=== PATIENT | male | born 1960 | race Caucasian/White ===

== ENCOUNTER 2021-02-12 14:31 | Inpatient (IN) | payer MEDICAID, SELFPAY ==
[2021-02-12] VITALS (8 sets, daily range): BP systolic 78–156; BP diastolic 50–100; PULSE 63–106; RESP 16–28; TEMP 36.6–38.2; O2SAT 88–99; BMI 38.7
--- NOTE | ~2021-02-12 | CT_ITS ---
EXAMINATION: CT CHEST WITHOUT CONTRAST CLINICAL INFORMATION: Shortness of breath with cough and lower extremity edema COMPARISON: Chest radiograph earlier today TECHNIQUE: Multidetector volumetric CT imaging of the chest was done. Axial MIP volume rendering provided. Sagittal and coronal reformatted images were obtained. This CT examination was performed using dose optimization techniques as appropriate, variously including the following: *Automated exposure control *Adjustment of mA and/or kV according to patient size (this includes techniques or standardized protocols for targeted exams where dose is matched to indication/reason for exam; i.e. extremities or head) *Use of iterative reconstruction technique DLP: 540 mGy-cm FINDINGS: LUNGS: Mild groundglass changes are present just in front of the major fissures in both upper lobes. There is a 8mm rounded density seen along the pleural surface laterally in the left upper lobe (5:131) MEDIASTINUM: Small mediastinal lymph nodes are present along with a few small anterior preparacardiac lymph nodes and posterior paraesophageal lymph nodes. No mediastinal or hilar lymphadenopathy. PLEURA: There is no pleural effusion. No pleural mass or thickening. AXILLA: No lymphadenopathy. UPPER ABDOMEN: A small hiatal hernia is present. Partial visualization of a 3.4 cm right renal cyst. OSSEOUS STRUCTURES: Unremarkable. Degenerative changes present in the spine CT/CT chest wo con IMPRESSION: No acute intrathoracic disease. 8 mm lung nodule in the area of groundglass change. According to the UPDATED 2017 Fleischner Society recommendations, the advised follow-up imaging for a single 6-8 mm solid nodule is: LOW RISK PATIENT: CT at 6-12 months, then consider CT at 18-24 months. HIGH RISK PATIENT: CT at 6-12 months, then at 18-24 months.
--- NOTE | ~2021-02-12 | XR_ITS ---
EXAMINATION: XR CHEST CLINICAL INFORMATION: SOB/cough and lower extremity. COMPARISON: None TECHNIQUE: Frontal view of the chest was obtained. FINDINGS: No significant abnormality is noted involving the heart, lungs, mediastinum, bony thorax or soft tissues. XR/XR chest 1V IMPRESSION: Unremarkable chest exam.
--- NOTE | ~2021-02-12 | XR_ITS ---
EXAMINATION: XR CHEST CLINICAL INFORMATION: Diverticulitis with microperforation. Evaluate for free air. COMPARISON: Previous chest x-ray from yesterday TECHNIQUE: Frontal view of the chest was obtained. FINDINGS: The cardiac and mediastinal contours are stable. The lung volumes are low. There is crowding of the central bronchovascular markings similar to yesterday's exam. The lungs are otherwise clear. There is no pleural effusion or pneumothorax. No free air is seen. XR/XR chest 1V IMPRESSION: No free air seen.
--- NOTE | ~2021-02-12 | CT_ITS ---
EXAMINATION: CT ABDOMEN AND PELVIS WITHOUT CONTRAST CLINICAL INFORMATION: Abdominal pain COMPARISON: CT scan abdomen pelvis 02/13/2020. Ultrasound of abdomen 09/09/2019 TECHNIQUE: Multidetector volumetric imaging was performed from the superior aspect of the liver through the pubic symphysis. Sagittal and coronal reformatted images were obtained on the technologist's workstation. This CT examination was performed using dose optimization techniques as appropriate, variously including the following: *Automated exposure control *Adjustment of mA and/or kV according to patient size (this includes techniques or standardized protocols for targeted exams where dose is matched to indication/reason for exam; i.e. extremities or head) *Use of iterative reconstruction technique DLP: 1160 mGy-cm FINDINGS: LUNG BASES: The visualized lung bases are unremarkable. LIVER, GALLBLADDER, AND BILIARY TREE: The liver is normal in size, shape, and attenuation. No focal hepatic lesion or biliary ductal dilatation is present. The gallbladder is unremarkable with no evidence of radiopaque gallstones, gallbladder wall thickening, or obvious pericholecystic inflammatory changes. PANCREAS: Unremarkable. SPLEEN: Unremarkable. ADRENAL GLANDS: Unremarkable. KIDNEYS AND URETERS: Nonobstructive 1 mm stone lower pole of the right kidney. No stone in the left kidney. There are no ureteral stones. There is no hydronephrosis.There is a stable cyst posterior upper pole right kidney measuring 3 cm and a stable 8 mm cyst at the lower pole left kidney. No follow-up imaging is recommended for simple renal cyst. BLADDER: Unremarkable. GASTROINTESTINAL TRACT: There is small area of focal edema the junction of the descending and sigmoid colon bowel wall thickening and edema in the pericolonic fat. There is a small collection of extraluminal gas in the mesentery in this area. There are a few diverticula in this region of the colon. Findings consistent with a diverticulitis with localized perforation. No abscess however. No bowel obstruction. Small volume of stool in the colon. The sigmoid colon is redundant looping well to the right side of the abdomen but there is no mesenteric twist. The appendix is normal. The small bowel loops are unremarkable. Is a small hiatal hernia. ABDOMINAL WALL: No significant hernia is appreciated. LYMPH NODES: Normal. VASCULAR: Small volume of scattered vascular wall calcifications of the abdominal aorta. There is no aneurysm. PELVIC VISCERA: Prostate measures 5 cm transverse. OSSEOUS STRUCTURES: Multilevel degenerative spondylosis of the spine. CT/CT abdomen pelvis wo con IMPRESSION: Focal diverticulitis of the distal descending/proximal sigmoid colon. There is microperforation with small collection of gas in the pericolonic fat but no abscess. This critical result was discussed with Dr. Palma on 02/12/2021, 10:20 PM and it was ascertained that the content and urgency of the report was understood at the time of direct communication.
--- NOTE | ~2021-02-12 | US_ITS ---
EXAMINATION: US VENOUS ULTRASOUND WITH DOPPLER LOWER EXTREMITY, BILATERAL CLINICAL INFORMATION: Bilateral pitting edema COMPARISON: None TECHNIQUE: Ultrasound of the deep veins is performed from the hip to the calf with compression sonography and color and pulse Doppler assessment. Spectral analysis with color-flow imaging is performed. FINDINGS: Difficult exam as patient could not tolerate compressions and diffuse compressions after proximal right femoral vein evaluation. RIGHT: There is normal respiratory variation flow visualized in common femoral vein, superficial femoral vein, profunda femoral vein, popliteal vein, and the trifurcation region shows no evidence of deep venous thrombosis. No compression or augmentation technique utilized There is no significant popliteal fossa cyst. There is mild calf edema. The peroneal vein is not visualized. LEFT: There is normal respiratory variation visualized in common femoral vein, superficial femoral vein, profunda femoral vein, popliteal vein, and the trifurcation region shows no evidence of deep venous thrombosis. No compression or augmentation technique utilized. There is no significant popliteal fossa cyst. The peroneal vein is not visualized. There is calf edema. If the patient's symptoms persist, followup ultrasound in 5 days 7 days might be of value to exclude proximal propagation from a non-visualized calf vein. US/US venous duplex LE BI IMPRESSION: There is surgery variation on color and spectral flow seen in the lower extremities normal color flow and spectral Doppler evaluation in both lower extremities. However no compression or augmentation technique was utilized hence DVT cannot be excluded. There is bilateral calf edema.
--- NOTE | 2021-02-12 15:31 | ECG_ITS ---
Test Reason : WEAKNESS Blood Pressure : / mmHG Vent. Rate : 065 BPM Atrial Rate : 065 BPM P-R Int : 144 ms QRS Dur : 100 ms QT Int : 428 ms P-R-T Axes : 039 042 064 degrees QTc Int : 445 ms Normal sinus rhythm Normal ECG When compared with ECG of 14-FEB-2020 01:04, Premature atrial complexes are no longer Present Right bundle branch block is no longer Present Referred By: Keshia Camara Electronically Signed By:AMANDA SHARMA
[2021-02-12 16:11] LABS: MANUAL DIFF FLAG NO
[2021-02-12 16:16] LABS: Basophils Percent Auto 0.2 % (0-2); Eosinophils Percent Auto 0.2 % (0-4); Hemoglobin 9.8 g/dl (14.0-18.0); Imm Gran Abs Auto 0.36 X10*3/uL (0.00-0.03); Imm Gran Pct Auto 3.4 % (0.0-0.4); Lymphocytes Absolute Auto 0.5 X10*3/uL (1.2-4.9); Lymphocytes Percent Auto 4.9 % (20-40); Mean Corpuscular HGB Conc 31.6 g/dl (31.0-36.0); Mean Corpuscular Hemoglobin 26.3 pg (27.0-33.0); Mean Corpuscular Volume 83.1 fL (80-98); Mean Platelet Volume 10.5 fL (9.4-12.4); Monocytes Absolute Auto 0.4 X10*3/uL (0.1-1.2); Monocytes Percent Auto 3.7 % (2-11); Neutrophils Absolute Auto 9.4 X10*3/uL (2.0-8.3); Neutrophils Percent Auto 87.6 % (45-73); Platelet Count 193 X10*3/uL (160-400); Red Blood Count 3.73 X10*6/uL (4.60-5.80); Red Cell Distribution Width 13.6 % (11.0-16.0); White Blood Count 10.7 X10*3/uL (4.8-10.8)
[2021-02-12 16:18] LABS: INTERNATIONAL NORM RATIO 1.2 (0.9-1.1); Prothrombin Time 14.2 SEC (10.8-13.0)
[2021-02-12 16:28] LABS: Glucose Urine UA NEG (NEG); Leukocyte Esterase Urine NEG (NEG); Nitrite Urine NEG (NEG); PH 5.5 (5.0-8.0); Specific Gravity - Urine 1.025 (1.005-1.025); Urine Blood NEG (NEG); Urine Ketones NEG (NEG); Urine Protein 1+ MG/DL (NEG-TRACE)
--- NOTE | 2021-02-12 16:28 | ED_ITS ---
HPI - General Adult General Chief complaint: Weakness Stated complaint: SOB,? COVID Time Seen by Provider: 02/12/21 15:07 Source: patient Mode of arrival: ambulatory Limitations: language barrier (Uzbek-speaking) History of Present Illness HPI narrative: 60-year-old male with a past medical history of coronary artery disease currently on Plavix, congestive heart failure, grade 2 diastolic dysfunction with an ejection fraction of 55-60% obtained September 2019, hypertension, hyperlipidemia, diabetes, obesity, asthma, obstructive sleep apnea who is a daily smoker presenting to the ED with complaints of 1 day of intermittent headaches, body aches, malaise, fatigue, nausea/vomiting, dry cough, shortness of breath, orthopnea and dyspnea on exertion. Reports that he was not vaccinated with COVID vaccine. Denies recent travel or sick contacts. Denies any measured fevers, dizziness, changes in vision, neck pain/stiffness, chest pain, palpitations, abdominal pain, back pain, dysuria, hematuria, calf tenderness or any other symptoms complaints or concerns at this time. Related Data Home Medications Medication Instructions Recorded Confirmed albuterol sulfate [ProAir HFA] 2 puff INHALATION Q4H PRN 02/12/21 02/12/21 amlodipine 10 mg PO QPM 02/12/21 02/12/21 buprenorphine-naloxone [Suboxone] 2 strip SUBLINGUAL DAILY 02/12/21 02/12/21 bupropion HCl 150 mg PO BID 02/12/21 02/12/21 calcium carbonate-vitamin D3 1 tab PO BID 02/12/21 02/12/21 [Oyster Shell Calcium-Vit D3] carvedilol 25 mg PO BID 02/12/21 02/12/21 cholecalciferol (vitamin D3) 1,000 unit PO DAILY 02/12/21 02/12/21 clopidogrel 75 mg PO DAILY 02/12/21 02/12/21 fluticasone propion-salmeterol 1 puff INHALATION BID 02/12/21 02/12/21 [Advair Diskus] fluticasone propionate 2 spray INTRANASAL DAILY 02/12/21 02/12/21 furosemide 40 mg PO DAILY 02/12/21 02/12/21 hydralazine 100 tab PO TID 02/12/21 02/12/21 isosorbide mononitrate 60 mg PO DAILY 02/12/21 02/12/21 losartan 100 mg PO DAILY 02/12/21 02/12/21 metformin 500 mg PO BID 02/12/21 02/12/21 nicotine (polacrilex) 1 ea PO Q2H PRN 02/12/21 02/12/21 omeprazole 20 mg PO DAILY 02/12/21 02/12/21 rosuvastatin 40 mg PO BEDTIME 02/12/21 02/12/21 spironolactone 25 mg PO BID 02/12/21 02/12/21 tiotropium bromide [Spiriva with 1 cap INHALATION DAILY 02/12/21 02/12/21 HandiHaler] Allergies Allergy/AdvReac Type Severity Reaction Status Date / Time crab [CRAB] Allergy Unknown ANAPHYLAXIS Unverified 05/18/20 15:00 lisinopril [LISINOPRIL] Allergy Unknown cough Unverified 05/18/20 15:00 Penicillins [PCN] Allergy Unknown RASH Unverified 05/18/20 15:00 Sulfa (Sulfonamide Allergy Unknown RASH Unverified 05/18/20 15:00 Antibiotics) [SULFA (SULFONAMIDE ANTIBIOTICS)] Review of Systems Review of Systems: Constitutional : Positive chills/fatigue/malaise, No Weight loss, No Chills, No Night Sweats ENT/Mouth : No Hearing loss, No Ear Pain, No Nasal Congestion, No Sinus Pain, No Hoarseness, No sore throat, No Rhinorrhea, No Swallowing Difficulty Eyes: No Eye Pain, No Swelling, No Redness, No Foreign Body, No Discharge, No Vision Changes Cardiovascular : Positive shortness of breath/dyspnea on exertion/orthopnea/lower extremity edema, No Chest Pain, No Palpitations Respiratory : Positive dry Cough, No Sputum, No Wheezing Gastrointestinal : Positive nausea/vomiting, No Diarrhea, No Constipation, No abdominal Pain, No Hematochezia, No Melena Genitourinary : no irregular bleeding, No Dysuria, No Urinary Frequency, No Hematuria, No Urinary Incontinence, No Urgency, No Flank Pain, No Urinary Flow Changes, No Hesitancy Musculoskeletal : No joint pain, No Myalgias, No Joint Swelling Skin : No Skin Lesions, No rash Neuro : Positive intermittent headaches, positive generalized weakness, no focal weakness, No Numbness, No Paresthesias, No Loss of Consciousness, No Dizziness, No Headache Psych : No Anxiety/Panic, No Depression, No SI/HI/AH/VH, No Social Issues, Heme/Lymph: No Bruising, No Bleeding,No Lymphadenopathy Endocrine : No Polyuria, No Polydipsia, No Temperature Intolerance Yes all other systems are reviewed and are negative [facility] Past Medical History Attestation statement: The following information was validated with the patient. Surgical History Hx of colonoscopy Family History Family History Father No problems noted. Mother No problems noted. Social History Social History Alcohol intake: never Patient Tobacco Use Status: Current everyday Tobacco user Use of substances other than those prescribed or required for medical reasons: No Advance Directives: No Advance Directives Information Provided: Yes Physical Exam Vital Signs: Vital Signs: Last Vital Signs Temp 98 F 02/12/21 15:11 Pulse 63 02/12/21 15:11 Resp 18 02/12/21 15:11 BP 96/54 L 02/12/21 15:11 Pulse Ox 99 02/12/21 15:11 Body Mass Index 38.7 vital signs have been reviewed as normal and appeared to be correct. Blood pressure hypotensive at 96/54. Heart rate normal. Respiration rate normal. Temperature normal. Oxygen saturation 99% on 2 L of nasal cannula although when I removed the nasal cannula oxygen patient remains at 95% on room air. Appearance: Alert. Oriented X3. No acute distress. Head: Normal external exam. Normocephalic. Atraumatic. Eyes: PERRLA. EOMI. Conjunctiva and sclera normal. Eyelids normal. ENT: Pharynx normal. Uvula midline. Moist mucous membranes. No trismus noted. No drooling noted. No muffled voice noted. Neck: Normal inspection. Neck supple. FROM. No adenopathy. Thyroid Normal. No meningeal signs. No neck mass noted. CVS: Normal heart rate and rhythm. Heart sound normal. Pulses normal throughout. No murmurs/rales/gallops. Respiratory: No respiratory distress. Painless inspiration. Breath sounds normal. No wheezes/rales/rhonchi noted. Chest nontender. No accessory muscle usage noted or decreased air movement noted. Abdomen: Soft and nontender. Bowel sounds normal in all 4 quadrants. No distention noted. No organomegaly noted. No visible injury noted. Back: No CVA tenderness. Full range of motion noted. No rashes/lesion/induration/fluctuance or signs of infection noted. Skin: Skin warm and dry. Normal skin color. Normal skin turgor. No rashes/lesions/lacerations noted. Extremities: +3 lower extremity edema. No calf tenderness noted. Extremities exhibit normal range of motion. Extremities nontender. Neuro: Oriented X 3. No motor deficit. No sensory deficit. Reflexes normal. Normal steady gait. No focal neuro deficits noted. Vascular: + radial pulses/+ 2 distal pedal pulses/+2 dorsalis pedis b/l. Normal cap refill. No cyanosis noted to upper extremity nails and lower extremity toes nails. Course Course Course Narrative: 15:35pm - 60-year-old male presenting to the ED with complaints of intermittent headaches, chills, body aches, malaise, fatigue, nausea/vomiting, dry cough, shortness of breath, orthopnea and dyspnea on exertion x 1 day. Plan: Labs, chest x-ray, EKG, CT scan of chest without contrast, blood cultures, lactic acid. 30 cc/kilos with ideal body weight. I also had Dr. Holloway who did a bedside ultrasound echo and reported that there was no pericardial effusion. We will then re-evaluate. Reevaluation(s) Reevaluation #1: - labs returned and patient with an H&H of 9.8/31.0 we have labs from 02/14/2020 and his H&H at that point was 12.9/41.0 therefore this is new - BUN/CR at 61/3.19 - Glucose 149 - AST/ALT - 54/47 - CRP 33.70 - ferritin 549 - all other labs are within normal limits. UA within normal limits no evidence of UTI. - Patient negative for COVID/RSV/flu. - chest x-ray negative for any acute processes. - chest CT without contrast revealed mild ground-glass changes in front of the major fissures and both upper lobes there is also noted to be 8 mm lung nodule otherwise no other acute processes noted. - therefore bilateral venous duplex ultrasound ordered for lower extremity DVT although patient is on Plavix therefore less likely although not completely excluded - I did a stool occult and when I laid the patient down his oxygen saturation went to 88% on room air therefore had to place him back on 2 L - respiratory panel still pending. - plan is to admit Dr. Torres accepted admission at this time Time: 18:00 Medical Decision Making Medical Records Medical records reviewed: Yes I reviewed the patient's medical records. Lab Data Lab results reviewed: Yes I reviewed the patient's lab results. Result diagrams: 02/12/21 15:57 02/12/21 15:57 Labs: Lab Results 02/12/21 02/12/21 02/12/21 Range/Units 15:55 15:57 15:57 WBC 10.7 (4.8-10.8) X10*3/uL RBC 3.73 L (4.60-5.80) X10*6/uL Hgb 9.8 L (14.0-18.0) g/dl Hct 31.0 L (42-52) % MCV 83.1 (80-98) fL MCH 26.3 L (27.0-33.0) pg MCHC 31.6 (31.0-36.0) g/dl RDW 13.6 (11.0-16.0) % Plt Count 193 (160-400) X10*3/uL MPV 10.5 (9.4-12.4) fL Immature Gran % (Auto) 3.4 H (0.0-0.4) % Neut % (Auto) 87.6 H (45-73) % Lymph % (Auto) 4.9 L (20-40) % [facility] % (Auto) 3.7 (2-11) % Eos % (Auto) 0.2 (0-4) % Baso % (Auto) 0.2 (0-2) % Lymph # (Auto) 0.5 L (1.2-4.9) X10*3/uL [facility] # (Auto) 0.4 (0.1-1.2) X10*3/uL Eos # (Auto) 0.0 (0.0-0.4) X10*3/uL Baso # (Auto) 0.0 (0.0-0.2) X10*3/uL Abs Immat Gran (auto) 0.36 H (0.00-0.03) X10*3/uL Absolute Neuts (auto) 9.4 H (2.0-8.3) X10*3/uL Absolute Nucleated RBC 0.000 (0.0-0.012) X10*3/uL Nucleated RBC % (auto) 0.0 (0.0-0.2) /100WBC PT 14.2 H (10.8-13.0) SEC INR 1.2 H (0.9-1.1) Sodium (135-145) mmol/L Potassium (3.3-5.1) mmol/L Chloride (96-108) mmol/L Carbon Dioxide (22-29) mmol/L Anion Gap (12-20) BUN (9-16) mg/dL Creatinine (0.5-1.4) mg/dL Estim Creat Clear Calc Estimated GFR Random Glucose (60-115) mg/dL Lactic Acid 1.4 (0.5-2.0) mmol/L Calcium (8.4-10.2) mg/dL Magnesium (1.6-2.6) mg/dL Ferritin (20-250) ng/mL Total Bilirubin (0.0-1.0) mg/dL AST (5-37) U/L ALT (0-40) U/L Alkaline Phosphatase (39-117) U/L Lactate Dehydrogenase (118-273) U/L Troponin I High Sens (<3.5-35.0) ng/L C-Reactive Protein (< or = 0.50) mg/dL B-Natriuretic Peptide (<100) pg/mL Total Protein (6.5-8.0) g/dL Albumin (3.5-5.0) g/dL Procalcitonin ng/mL Urine Color Urine Appearance Urine pH (5.0-8.0) Ur Specific [place] (1.005-1.025) Urine Protein (NEG-TRACE) MG/DL Urine Glucose (UA) (NEG) MG/DL Urine Ketones (NEG) MG/DL Urine Blood (NEG) Urine Nitrite (NEG) Ur Leukocyte Esterase (NEG) Urine RBC (0) /HPF Urine WBC (0-4) /HPF Ur Squamous Epith Cells /LPF Ur Renal Epithelial Cell /LPF Amorphous Sediment /LPF Urine Bacteria /LPF Granular Casts /LPF Coronavirus (PCR) (Negative) Influenza Type A (PCR) (Negative) Influenza Type B (PCR) (Negative) RSV RNA Qual (PCR) (Negative) 02/12/21 02/12/21 02/12/21 Range/Units 15:57 15:57 15:57 WBC (4.8-10.8) X10*3/uL RBC (4.60-5.80) X10*6/uL Hgb (14.0-18.0) g/dl Hct (42-52) % MCV (80-98) fL MCH (27.0-33.0) pg MCHC (31.0-36.0) g/dl RDW (11.0-16.0) % Plt Count (160-400) X10*3/uL MPV (9.4-12.4) fL Immature Gran % (Auto) (0.0-0.4) % Neut % (Auto) (45-73) % Lymph % (Auto) (20-40) % [place] % (Auto) (2-11) % Eos % (Auto) (0-4) % Baso % (Auto) (0-2) % Lymph # (Auto) (1.2-4.9) X10*3/uL [facility] # (Auto) (0.1-1.2) X10*3/uL Eos # (Auto) (0.0-0.4) X10*3/uL Baso # (Auto) (0.0-0.2) X10*3/uL Abs Immat Gran (auto) (0.00-0.03) X10*3/uL Absolute Neuts (auto) (2.0-8.3) X10*3/uL Absolute Nucleated RBC (0.0-0.012) X10*3/uL Nucleated RBC % (auto) (0.0-0.2) /100WBC PT (10.8-13.0) SEC INR (0.9-1.1) Sodium 142 (135-145) mmol/L Potassium 4.1 (3.3-5.1) mmol/L Chloride 99 (96-108) mmol/L Carbon Dioxide 26 (22-29) mmol/L Anion Gap 21 H (12-20) BUN 61 H (9-16) mg/dL Creatinine 3.19 H (0.5-1.4) mg/dL Estim Creat Clear Calc 27.7 Estimated GFR 20 Random Glucose 159 H (60-115) mg/dL Lactic Acid (0.5-2.0) mmol/L Calcium 8.8 (8.4-10.2) mg/dL Magnesium 2.1 (1.6-2.6) mg/dL Ferritin 549 H (20-250) ng/mL Total Bilirubin 0.5 (0.0-1.0) mg/dL AST 54 H (5-37) U/L ALT 47 H (0-40) U/L Alkaline Phosphatase 109 (39-117) U/L Lactate Dehydrogenase 214 (118-273) U/L Troponin I High Sens 4.5 (<3.5-35.0) ng/L C-Reactive Protein 33.70 H (< or = 0.50) mg/dL B-Natriuretic Peptide (<100) pg/mL Total Protein 5.5 L (6.5-8.0) g/dL Albumin 3.2 L (3.5-5.0) g/dL Procalcitonin ng/mL Urine Color Urine Appearance Urine pH (5.0-8.0) Ur Specific [place] (1.005-1.025) Urine Protein (NEG-TRACE) MG/DL Urine Glucose (UA) (NEG) MG/DL Urine Ketones (NEG) MG/DL Urine Blood (NEG) Urine Nitrite (NEG) Ur Leukocyte Esterase (NEG) Urine RBC (0) /HPF Urine WBC (0-4) /HPF Ur Squamous Epith Cells /LPF Ur Renal Epithelial Cell /LPF Amorphous Sediment /LPF Urine Bacteria /LPF Granular Casts /LPF Coronavirus (PCR) (Negative) Influenza Type A (PCR) (Negative) Influenza Type B (PCR) (Negative) RSV RNA Qual (PCR) (Negative) 02/12/21 02/12/21 02/12/21 Range/Units 15:57 15:58 15:58 WBC (4.8-10.8) X10*3/uL RBC (4.60-5.80) X10*6/uL Hgb (14.0-18.0) g/dl Hct (42-52) % MCV (80-98) fL MCH (27.0-33.0) pg MCHC (31.0-36.0) g/dl RDW (11.0-16.0) % Plt Count (160-400) X10*3/uL MPV (9.4-12.4) fL Immature Gran % (Auto) (0.0-0.4) % Neut % (Auto) (45-73) % Lymph % (Auto) (20-40) % [place] % (Auto) (2-11) % Eos % (Auto) (0-4) % Baso % (Auto) (0-2) % Lymph # (Auto) (1.2-4.9) X10*3/uL [place] # (Auto) (0.1-1.2) X10*3/uL Eos # (Auto) (0.0-0.4) X10*3/uL Baso # (Auto) (0.0-0.2) X10*3/uL Abs Immat Gran (auto) (0.00-0.03) X10*3/uL Absolute Neuts (auto) (2.0-8.3) X10*3/uL Absolute Nucleated RBC (0.0-0.012) X10*3/uL Nucleated RBC % (auto) (0.0-0.2) /100WBC PT (10.8-13.0) SEC INR (0.9-1.1) Sodium (135-145) mmol/L Potassium (3.3-5.1) mmol/L Chloride (96-108) mmol/L Carbon Dioxide (22-29) mmol/L Anion Gap (12-20) BUN (9-16) mg/dL Creatinine (0.5-1.4) mg/dL Estim Creat Clear Calc Estimated GFR Random Glucose (60-115) mg/dL Lactic Acid (0.5-2.0) mmol/L Calcium (8.4-10.2) mg/dL Magnesium (1.6-2.6) mg/dL Ferritin (20-250) ng/mL Total Bilirubin (0.0-1.0) mg/dL AST (5-37) U/L ALT (0-40) U/L Alkaline Phosphatase (39-117) U/L Lactate Dehydrogenase (118-273) U/L Troponin I High Sens (<3.5-35.0) ng/L C-Reactive Protein (< or = 0.50) mg/dL B-Natriuretic Peptide 93 (<100) pg/mL Total Protein (6.5-8.0) g/dL Albumin (3.5-5.0) g/dL Procalcitonin 252.71 ng/mL Urine Color Urine Appearance Urine pH (5.0-8.0) Ur Specific [place] (1.005-1.025) Urine Protein (NEG-TRACE) MG/DL Urine Glucose (UA) (NEG) MG/DL Urine Ketones (NEG) MG/DL Urine Blood (NEG) Urine Nitrite (NEG) Ur Leukocyte Esterase (NEG) Urine RBC (0) /HPF Urine WBC (0-4) /HPF Ur Squamous Epith Cells /LPF Ur Renal Epithelial Cell /LPF Amorphous Sediment /LPF Urine Bacteria /LPF Granular Casts /LPF Coronavirus (PCR) NEGATIVE (Negative) Influenza Type A (PCR) NEGATIVE (Negative) Influenza Type B (PCR) NEGATIVE (Negative) RSV RNA Qual (PCR) NEGATIVE (Negative) 02/12/21 Range/Units 15:58 WBC (4.8-10.8) X10*3/uL RBC (4.60-5.80) X10*6/uL Hgb (14.0-18.0) g/dl Hct (42-52) % MCV (80-98) fL MCH (27.0-33.0) pg MCHC (31.0-36.0) g/dl RDW (11.0-16.0) % Plt Count (160-400) X10*3/uL MPV (9.4-12.4) fL Immature Gran % (Auto) (0.0-0.4) % Neut % (Auto) (45-73) % Lymph % (Auto) (20-40) % [place] % (Auto) (2-11) % Eos % (Auto) (0-4) % Baso % (Auto) (0-2) % Lymph # (Auto) (1.2-4.9) X10*3/uL [facility] # (Auto) (0.1-1.2) X10*3/uL Eos # (Auto) (0.0-0.4) X10*3/uL Baso # (Auto) (0.0-0.2) X10*3/uL Abs Immat Gran (auto) (0.00-0.03) X10*3/uL Absolute Neuts (auto) (2.0-8.3) X10*3/uL Absolute Nucleated RBC (0.0-0.012) X10*3/uL Nucleated RBC % (auto) (0.0-0.2) /100WBC PT (10.8-13.0) SEC INR (0.9-1.1) Sodium (135-145) mmol/L Potassium (3.3-5.1) mmol/L Chloride (96-108) mmol/L Carbon Dioxide (22-29) mmol/L Anion Gap (12-20) BUN (9-16) mg/dL Creatinine (0.5-1.4) mg/dL Estim Creat Clear Calc Estimated GFR Random Glucose (60-115) mg/dL Lactic Acid (0.5-2.0) mmol/L Calcium (8.4-10.2) mg/dL Magnesium (1.6-2.6) mg/dL Ferritin (20-250) ng/mL Total Bilirubin (0.0-1.0) mg/dL AST (5-37) U/L ALT (0-40) U/L Alkaline Phosphatase (39-117) U/L Lactate Dehydrogenase (118-273) U/L Troponin I High Sens (<3.5-35.0) ng/L C-Reactive Protein (< or = 0.50) mg/dL B-Natriuretic Peptide (<100) pg/mL Total Protein (6.5-8.0) g/dL Albumin (3.5-5.0) g/dL Procalcitonin ng/mL Urine Color YELLOW Urine Appearance HAZY Urine pH 5.5 (5.0-8.0) Ur Specific [place] 1.025 (1.005-1.025) Urine Protein 1+ H (NEG-TRACE) MG/DL Urine Glucose (UA) NEG (NEG) MG/DL Urine Ketones NEG (NEG) MG/DL Urine Blood NEG (NEG) Urine Nitrite NEG (NEG) Ur Leukocyte Esterase NEG (NEG) Urine RBC 0 (0) /HPF Urine WBC 0 (0-4) /HPF Ur Squamous Epith Cells NONE /LPF Ur Renal Epithelial Cell 3+ /LPF Amorphous Sediment 2+ /LPF Urine Bacteria NONE /LPF Granular Casts 5-9 /LPF Coronavirus (PCR) (Negative) Influenza Type A (PCR) (Negative) Influenza Type B (PCR) (Negative) RSV RNA Qual (PCR) (Negative) Imaging Data Chest x-ray: Attestation: I personally reviewed and interpreted this imaging study as follows: Radiologist's impression: FINDINGS: No significant abnormality is noted involving the heart, lungs, mediastinum, bony thorax or soft tissues. XR/XR chest 1V IMPRESSION: Unremarkable chest exam. CT scan - chest: Attestation: I personally reviewed and interpreted this imaging study as follows: Radiologist's impression: FINDINGS: LUNGS: Mild groundglass changes are present just in front of the major fissures in both upper lobes. There is a 8mm rounded density seen along the pleural surface laterally in the left upper lobe (5:131) MEDIASTINUM: Small mediastinal lymph nodes are present along with a few small anterior preparacardiac lymph nodes and posterior paraesophageal lymph nodes. No mediastinal or hilar lymphadenopathy. PLEURA: There is no pleural effusion. No pleural mass or thickening. AXILLA: No lymphadenopathy. UPPER ABDOMEN: A small hiatal hernia is present. Partial visualization of a 3.4 cm right renal cyst. OSSEOUS STRUCTURES: Unremarkable. Degenerative changes present in the spine CT/CT chest wo con IMPRESSION: No acute intrathoracic disease. 8 mm lung nodule in the area of groundglass change. According to the UPDATED 2017 Fleischner Society recommendations, the advised follow-up imaging for a single 6-8 mm solid nodule is: LOW RISK PATIENT: CT at 6-12 months, then consider CT at 18-24 months. HIGH RISK PATIENT: CT at 6-12 months, then at 18-24 months. ECG Data Attestation: I personally reviewed and interpreted this ECG as follows: Interpretation: Normal sinus rhythm with a ventricular rate of 65 with a normal NC interval normal QRS duration normal QT/QTC interval. No acute ischemic change noted. Critical Care Time Critical Care Time Critical Care Time: Yes Total Critical Care Time: 60 Attestation: I personally attest to this time spent taking care of the patient Discharge Plan Discharge Clinical Impression: Acute renal failure, Cough Patient Disposition: Admitted As Inpatient Prescriptions: No Action furosemide 40 mg tablet 40 mg PO DAILY RF: 0 metformin 500 mg tablet 500 mg PO BID RF: 0 bupropion HCl 150 mg tablet sustained-release 12 hr 150 mg PO BID RF: 0 fluticasone propion-salmeterol [Advair Diskus] 250-50 mcg/dose blister with device 1 puff inhalation BID RF: 0 carvedilol 25 mg tablet 25 mg PO BID RF: 0 nicotine (polacrilex) 2 mg gum 1 ea PO Q2H PRN (Reason: Nicotine Cravings) RF: 0 isosorbide mononitrate 30 mg tablet extended release 24 hr 60 mg PO DAILY RF: 0 clopidogrel 75 mg tablet 75 mg PO DAILY RF: 0 spironolactone 25 mg tablet 25 mg PO BID RF: 0 amlodipine 10 mg tablet 10 mg PO QPM RF: 0 hydralazine 100 mg tablet 100 tab PO TID RF: 0 omeprazole 20 mg capsule,delayed release(DR/EC) 20 mg PO DAILY RF: 0 albuterol sulfate [ProAir HFA] 90 mcg/actuation HFA aerosol inhaler 2 puff inhalation Q4H PRN (Reason: Wheezing) RF: 0 losartan 100 mg tablet 100 mg PO DAILY RF: 0 fluticasone propionate 50 mcg/actuation spray,suspension 2 spray intranasal DAILY RF: 0 rosuvastatin 40 mg tablet 40 mg PO BEDTIME RF: 0 Spiriva with HandiHaler 18 mcg capsule, w/inhalation device 1 cap inhalation DAILY RF: 0 cholecalciferol (vitamin D3) 25 mcg (1,000 unit) tablet 1,000 unit PO DAILY RF: 0 calcium carbonate-vitamin D3 [Oyster Shell Calcium-Vit D3] 500 mg(1,250mg) - 400 unit tablet 1 tab PO BID RF: 0 buprenorphine-naloxone [Suboxone] 8-2 mg film 2 strip sublingual DAILY RF: 0
[2021-02-12 16:31] LABS: Lactic Acid 1.4 mmol/L (0.5-2.0)
[2021-02-12 16:32] LABS: Appearance Urine HAZY; Color Urine YELLOW
[2021-02-12 16:38] LABS: Adenovirus PCR Not Detected (Not Detect.); Bordetella parapertussis PCR Not Detected (Not Detect.); Bordetella pertussis PCR Not Detected (Not Detect.); Chlamydia pneumoniae PCR Not Detected (Not Detect.); Coronavirus 229E PCR Not Detected (Not Detect.); Coronavirus HKU1 PCR Not Detected (Not Detect.); Coronavirus NL63 PCR Not Detected (Not Detect.); Coronavirus OC43 PCR Not Detected (Not Detect.); Human metapneumovirus PCR Not Detected (Not Detect.); Influenza A PCR Not Detected (Not Detect.); Influenza B PCR Not Detected (Not Detect.); Mycoplasma pneumoniae PCR Not Detected (Not Detect.); Parainfluenza 1 PCR Not Detected (Not Detect.); Parainfluenza 2 PCR Not Detected (Not Detect.); Parainfluenza 3 PCR Not Detected (Not Detect.); Parainfluenza 4 PCR Not Detected (Not Detect.); RSV PCR Not Detected (Not Detect.); Rhino/Enterovirus PCR Not Detected (Not Detect.); SARS-CoV-2 PCR Not Detected (Not Detect.)
[2021-02-12 16:46] LABS: Alanine Aminotransferase 47 U/L (0-40); Albumin Level 3.2 g/dL (3.5-5.0); Alkaline Phosphatase 109 U/L (39-117); Anion Gap 21 (12-20); Aspartate Amino Transferase 54 U/L (5-37); Bilirubin Total 0.5 mg/dL (0.0-1.0); Blood Urea Nitrogen 61 mg/dL (9-16); Calcium 8.8 mg/dL (8.4-10.2); Carbon Dioxide 26 mmol/L (22-29); Chloride 99 mmol/L (96-108); Creatinine Clr Calc Pharmacy 27.7; Estimated Glomerular Filt Rate 20; Glucose Random 159 mg/dL (60-115); Lactate Dehydrogenase 214 U/L (118-273); Magnesium 2.1 mg/dL (1.6-2.6); Potassium 4.1 mmol/L (3.3-5.1); Sodium 142 mmol/L (135-145); Total Protein 5.5 g/dL (6.5-8.0)
[2021-02-12 16:53] LABS: B Type Natriuretic Peptide 93 pg/mL (<100)
[2021-02-12 16:53] LABS: Troponin-I High Sensitivity 4.5 ng/L (<3.5-35.0)
[2021-02-12 16:55] LABS: Ferritin 549 ng/mL (20-250)
[2021-02-12 17:07] LABS: Influenza A PCR NEGATIVE (Negative); Influenza B PCR NEGATIVE (Negative); Resp Syncy Virus RNA Qual PCR NEGATIVE (Negative); SARS COV2 PCR INHOUSE NEGATIVE (Negative)
[2021-02-12 17:19] LABS: RBC Urine 0 /HPF (0); Renal Epithelial Cells Urine 3+ /LPF; WBC Urine 0 /HPF (0-4)
[2021-02-12 17:20] LABS: Amorphous Sediment Urine 2+ /LPF
[2021-02-12 17:28] LABS: Procalcitonin 252.71 ng/mL
[2021-02-12 18:19] LABS: OBS Int Ctl Valid YES; OBS1 POSITIVE (NEGATIVE)
[2021-02-12] MEDS: cefTRIAXone sodium 2 GM in 0.9 % Sodium Chloride 50 ML IV (18:22)
[2021-02-12] MEDS: 0.9 % Sodium Chloride 1,000 ML 999 ML IVCONT (18:23)
[2021-02-12 19:40] LABS: Troponin-I High Sensitivity 4.4 ng/L (<3.5-35.0)
[2021-02-12] MEDS: Lactated Ringers 1,000 ML 100 ML IVCONT (22:54)
[2021-02-12 23:08] LABS: Anion Gap 21 (12-20); Blood Urea Nitrogen 59 mg/dL (9-16); Calcium 8.7 mg/dL (8.4-10.2); Carbon Dioxide 26 mmol/L (22-29); Chloride 98 mmol/L (96-108); Creatinine Clr Calc Pharmacy 32.1; Estimated Glomerular Filt Rate 23; Glucose Random 168 mg/dL (60-115); Potassium 4.2 mmol/L (3.3-5.1); Sodium 141 mmol/L (135-145)
--- NOTE | 2021-02-12 23:21 | P.HPHOSP_ITS ---
History of Present Illness Date of Service: 02/12/21 Chief Complaint: Back pain This is a 60-year-old male with past medical history of HTN, type 2 diabetes, ABDOULAYE on CPAP, HLD, asthma, questionable history of CAD, ? CHF who presents to the hospital with complaints of back pain. Patient reports that his pain is lo calized to the right lower back radiating to the groin area, associated with chills, no fever, the pain is constant, 10/10, started 4-5 days ago, associated with nausea with no vomiting, no diarrhea or constipation. Patient is also complaining cough, shortness of breath, and phlegm production for the past few days. He denies any chest pain, no palpitations, she denies any urinary frequency urgency or dysuria. Denies any lower extremity edema. No orthopnea or PND. On arrival to the ED patient's vital significant for temp of 98?, heart rate of 63, respiratory rate of 18, blood pressure of 96/54, she and to satting 99% on 2 L of oxygen. O2 did drop on 2 L 80% of patient's O2 requirement increased to 5 L. For WBC count of 10.7, hemoglobin of 9.8 that dropped from 12.5 on 02/13, 14.2, INR of 1.2, sodium of 142, BUN of 61, creatinine of 3.19, AST of 54, ALT of 47, troponin of 4.5, BNP of 93, UA negative, extensive viral panel pending but negative for COVID, stool occult blood positive. EKG showed is normal sinus rhythm Chest CT shows 8 mm lung nodule in the area of ground-glass changes On my exam patient's abdomen was tender therefore I ordered a CT abdomen pelvis which showed diverticulitis with micro perforation. Patient will be admitted for further management Review of Systems Review of Systems: Yes all other systems are reviewed and are negative COUNT INCLUDES THE [facility] Medical History (Updated 02/13/21 @ 06:04 by Ti Hagan MD) Asthma Congestive heart failure Coronary artery disease Diabetes Hypertension Obesity Obstructive sleep apnea Family History Father No problems noted. Mother No problems noted. Surgical History (Updated 02/13/21 @ 05:57 by Ti Hagan MD) H/O hernia repair Hx of colonoscopy Social History Household Members: None Housing: House Do you presently have visiting nurse or other home services: No Alcohol intake: never Patient Tobacco Use Status: Current everyday Tobacco user Use of substances other than those prescribed or required for medical reasons: No Spiritual Healthcare Practices: no Jew Healthcare Practices: no Cultural Healthcare Practices: no Advance Directives: No Advance Directives Information Provided: Yes Do you have thoughts of harming others: None Do you have a plan to hurt others: No Plan Recently lost weight without trying: Unsure How much weight loss: Unsure Eating poorly because of decreased appetite: No Nutrition screen score: 4 Nutrition Risks: No Nutritional Risk Poor oral hygiene: No Meds Allergies Allergy/AdvReac Type Severity Reaction Status Date / Time crab [CRAB] Allergy Unknown ANAPHYLAXIS Unverified 05/18/20 15:00 lisinopril [LISINOPRIL] Allergy Unknown cough Unverified 05/18/20 15:00 Penicillins [PCN] Allergy Unknown RASH Unverified 05/18/20 15:00 Sulfa (Sulfonamide Allergy Unknown RASH Unverified 05/18/20 15:00 Antibiotics) [SULFA (SULFONAMIDE ANTIBIOTICS)] Active Medications: Current Medications Generic Name Dose Route Start Last Admin Trade Name Freq PRN Reason Stop Dose Admin Lactated Ringer's 1,000 mls @ 100 mls/hr 02/12/21 21:15 02/12/21 22:54 Lr IVCONT 100 mls/hr .Q10H ELVIE Administration Metronidazole 500 mg in 100 mls @ 100 mls/hr 02/12/21 22:30 Flagyl IV Q8H [facility] Consult 1 each 02/12/21 15:31 Consult Rx Perform Med Rec MISCELLANE ONCE PRN Consult order Home Medications Medication Instructions Recorded Confirmed Last Taken Type albuterol sulfate [ProAir HFA] 2 puff INHALATION Q4H PRN 02/12/21 02/12/21 Unknown History amlodipine 10 mg PO QPM 02/12/21 02/12/21 Unknown History buprenorphine-naloxone [Suboxone] 2 strip SUBLINGUAL DAILY 02/12/21 02/12/21 Unknown History bupropion HCl 150 mg PO BID 02/12/21 02/12/21 Unknown History calcium carbonate-vitamin D3 1 tab PO BID 02/12/21 02/12/21 Unknown History [Oyster Shell Calcium-Vit D3] carvedilol 25 mg PO BID 02/12/21 02/12/21 Unknown History cholecalciferol (vitamin D3) 1,000 unit PO DAILY 02/12/21 02/12/21 Unknown History clopidogrel 75 mg PO DAILY 02/12/21 02/12/21 Unknown History fluticasone propion-salmeterol 1 puff INHALATION BID 02/12/21 02/12/21 Unknown History [Advair Diskus] fluticasone propionate 2 spray INTRANASAL DAILY 02/12/21 02/12/21 Unknown History furosemide 40 mg PO DAILY 02/12/21 02/12/21 Unknown History hydralazine 100 tab PO TID 02/12/21 02/12/21 Unknown History isosorbide mononitrate 60 mg PO DAILY 02/12/21 02/12/21 Unknown History losartan 100 mg PO DAILY 02/12/21 02/12/21 Unknown History metformin 500 mg PO BID 02/12/21 02/12/21 Unknown History nicotine (polacrilex) 1 ea PO Q2H PRN 02/12/21 02/12/21 Unknown History omeprazole 20 mg PO DAILY 02/12/21 02/12/21 Unknown History rosuvastatin 40 mg PO BEDTIME 02/12/21 02/12/21 Unknown History spironolactone 25 mg PO BID 02/12/21 02/12/21 Unknown History tiotropium bromide [Spiriva with 1 cap INHALATION DAILY 02/12/21 02/12/21 Unknown History HandiHaler] Physical Exam Vital Signs and Narrative: Vital Signs: Last Vital Signs Temp 100.7 F H 02/12/21 22:20 Pulse 101 H 02/12/21 22:20 Resp 28 H 02/12/21 22:20 BP 154/87 H 02/12/21 22:20 Pulse Ox 93 02/12/21 22:20 Body Mass Index 38.7 Const: General: cooperative and no acute distress Orientation/consciousness: patient oriented x3 Eyes: General: appearance normal, both eyes and all related structures Pupils: Equal, round and reactive pupils present Resp: Effort & Inspection: normal respiratory effort and able to speak in complete sentences Cardio: Rate: regular rate Rhythm: regular rhythm GI: Other: tender abdomen diffusly , guarding Palpation (GI): Soft to palpation Skin: General skin exam: no rashes or lesions noted Neuro: General: patient oriented x3 Cranial nerves: Yes Equal, round and reactive pupils present Cognition (Neuro): normal cognition Extrem: General: Yes normal to inspection and Yes no pedal edema Results Labs CBC and Chem 7: 02/12/21 15:57 02/12/21 22:41 Labs: Laboratory Results - last 24 hr 02/12/21 02/12/21 02/12/21 15:55 15:57 15:57 MCV 83.1 MCH 26.3 L MCHC 31.6 RDW 13.6 Plt Count 193 MPV 10.5 Immature Gran % (Auto) 3.4 H Neut % (Auto) 87.6 H Lymph % (Auto) 4.[address] [place] % (Auto) 3.7 Eos % (Auto) 0.2 Baso % (Auto) 0.2 Lymph # (Auto) 0.[address] [place] # (Auto) 0.4 Eos # (Auto) 0.0 Baso # (Auto) 0.0 Abs Immat Gran (auto) 0.36 H Absolute Neuts (auto) 9.4 H Absolute Nucleated RBC 0.000 Nucleated RBC % (auto) 0.0 PT 14.2 H INR 1.2 H Anion Gap Estim Creat Clear Calc Estimated GFR Random Glucose Lactic Acid 1.4 Calcium Magnesium Ferritin Total Bilirubin AST ALT Alkaline Phosphatase Lactate Dehydrogenase Troponin I High Sens C-Reactive Protein B-Natriuretic Peptide Total Protein Albumin Procalcitonin Urine Color Urine Appearance Urine pH Ur Specific [place] Urine Protein Urine Glucose (UA) Urine Ketones Urine Blood Urine Nitrite Ur Leukocyte Esterase Urine RBC Urine WBC Ur Squamous Epith Cells Ur Renal Epithelial Cell Amorphous Sediment Urine Bacteria Granular Casts Stool Occult Blood Coronavirus (PCR) Influenza Type A (PCR) Influenza Type B (PCR) RSV RNA Qual (PCR) 02/12/21 02/12/21 02/12/21 15:57 15:57 15:57 MCV MCH MCHC RDW Plt Count MPV Immature Gran % (Auto) Neut % (Auto) Lymph % (Auto) [place] % (Auto) Eos % (Auto) Baso % (Auto) Lymph # (Auto) [place] # (Auto) Eos # (Auto) Baso # (Auto) Abs Immat Gran (auto) Absolute Neuts (auto) Absolute Nucleated RBC Nucleated RBC % (auto) PT INR Anion Gap 21 H Estim Creat Clear Calc 27.7 Estimated GFR 20 Random Glucose 159 H Lactic Acid Calcium 8.8 Magnesium 2.1 Ferritin 549 H Total Bilirubin 0.5 AST 54 H ALT 47 H Alkaline Phosphatase 109 Lactate Dehydrogenase 214 Troponin I High Sens 4.5 C-Reactive Protein 33.70 H B-Natriuretic Peptide Total Protein 5.5 L Albumin 3.2 L Procalcitonin Urine Color Urine Appearance Urine pH Ur Specific [place] Urine Protein Urine Glucose (UA) Urine Ketones Urine Blood Urine Nitrite Ur Leukocyte Esterase Urine RBC Urine WBC Ur Squamous Epith Cells Ur Renal Epithelial Cell Amorphous Sediment Urine Bacteria Granular Casts Stool Occult Blood Coronavirus (PCR) Influenza Type A (PCR) Influenza Type B (PCR) RSV RNA Qual (PCR) 02/12/21 02/12/21 02/12/21 15:57 15:58 15:58 MCV MCH MCHC RDW Plt Count MPV Immature Gran % (Auto) Neut % (Auto) Lymph % (Auto) [place] % (Auto) Eos % (Auto) Baso % (Auto) Lymph # (Auto) [place] # (Auto) Eos # (Auto) Baso # (Auto) Abs Immat Gran (auto) Absolute Neuts (auto) Absolute Nucleated RBC Nucleated RBC % (auto) PT INR Anion Gap Estim Creat Clear Calc Estimated GFR Random Glucose Lactic Acid Calcium Magnesium Ferritin Total Bilirubin AST ALT Alkaline Phosphatase Lactate Dehydrogenase Troponin I High Sens C-Reactive Protein B-Natriuretic Peptide 93 Total Protein Albumin Procalcitonin 252.71 Urine Color Urine Appearance Urine pH Ur Specific [place] Urine Protein Urine Glucose (UA) Urine Ketones Urine Blood Urine Nitrite Ur Leukocyte Esterase Urine RBC Urine WBC Ur Squamous Epith Cells Ur Renal Epithelial Cell Amorphous Sediment Urine Bacteria Granular Casts Stool Occult Blood Coronavirus (PCR) NEGATIVE Influenza Type A (PCR) NEGATIVE Influenza Type B (PCR) NEGATIVE RSV RNA Qual (PCR) NEGATIVE 02/12/21 02/12/21 02/12/21 15:58 18:07 18:54 MCV MCH MCHC RDW Plt Count MPV Immature Gran % (Auto) Neut % (Auto) Lymph % (Auto) [place] % (Auto) Eos % (Auto) Baso % (Auto) Lymph # (Auto) [place] # (Auto) Eos # (Auto) Baso # (Auto) Abs Immat Gran (auto) Absolute Neuts (auto) Absolute Nucleated RBC Nucleated RBC % (auto) PT INR Anion Gap Estim Creat Clear Calc Estimated GFR Random Glucose Lactic Acid Calcium Magnesium Ferritin Total Bilirubin AST ALT Alkaline Phosphatase Lactate Dehydrogenase Troponin I High Sens 4.4 C-Reactive Protein B-Natriuretic Peptide Total Protein Albumin Procalcitonin Urine Color YELLOW Urine Appearance HAZY Urine pH 5.5 Ur Specific [place] 1.025 Urine Protein 1+ H Urine Glucose (UA) NEG Urine Ketones NEG Urine Blood NEG Urine Nitrite NEG Ur Leukocyte Esterase NEG Urine RBC 0 Urine WBC 0 Ur Squamous Epith Cells NONE Ur Renal Epithelial Cell 3+ Amorphous Sediment 2+ Urine Bacteria NONE Granular Casts 5-9 Stool Occult Blood POSITIVE Coronavirus (PCR) Influenza Type A (PCR) Influenza Type B (PCR) RSV RNA Qual (PCR) 02/12/21 22:41 MCV MCH MCHC RDW Plt Count MPV Immature Gran % (Auto) Neut % (Auto) Lymph % (Auto) [place] % (Auto) Eos % (Auto) Baso % (Auto) Lymph # (Auto) [place] # (Auto) Eos # (Auto) Baso # (Auto) Abs Immat Gran (auto) Absolute Neuts (auto) Absolute Nucleated RBC Nucleated RBC % (auto) PT INR Anion Gap 21 H Estim Creat Clear Calc 32.1 Estimated GFR 23 Random Glucose 168 H Lactic Acid Calcium 8.7 Magnesium Ferritin Total Bilirubin AST ALT Alkaline Phosphatase Lactate Dehydrogenase Troponin I High Sens C-Reactive Protein B-Natriuretic Peptide Total Protein Albumin Procalcitonin Urine Color Urine Appearance Urine pH Ur Specific [place] Urine Protein Urine Glucose (UA) Urine Ketones Urine Blood Urine Nitrite Ur Leukocyte Esterase Urine RBC Urine WBC Ur Squamous Epith Cells Ur Renal Epithelial Cell Amorphous Sediment Urine Bacteria Granular Casts Stool Occult Blood Coronavirus (PCR) Influenza Type A (PCR) Influenza Type B (PCR) RSV RNA Qual (PCR) Imaging Radiologist's Impressions: Impressions Chest X-Ray 02/12/21 15:31 IMPRESSION: Unremarkable chest exam. Chest CT 02/12/21 16:32 IMPRESSION: No acute intrathoracic disease. 8 mm lung nodule in the area of groundglass change. According to the UPDATED 2017 Fleischner Society recommendations, the advised follow-up imaging for a single 6-8 mm solid nodule is: LOW RISK PATIENT: CT at 6-12 months, then consider CT at 18-24 months. HIGH RISK PATIENT: CT at 6-12 months, then at 18-24 months. Venous Duplex 02/12/21 17:44 IMPRESSION: There is surgery variation on color and spectral flow seen in the lower extremities normal color flow and spectral Doppler evaluation in both lower extremities. However no compression or augmentation technique was utilized hence DVT cannot be excluded. There is bilateral calf edema. Abdomen/Pelvis CT 02/12/21 20:59 IMPRESSION: Focal diverticulitis of the distal descending/proximal sigmoid colon. There is microperforation with small collection of gas in the pericolonic fat but no abscess. This critical result was discussed with Dr. Palma on 02/12/2021, 10:20 PM and it was ascertained that the content and urgency of the report was understood at the time of direct communication. Assessment and Plan (1) Diverticulitis: Status: Acute (2) Acute renal failure: Status: Acute (3) Pneumonia: Status: Acute (4) Normocytic anemia: Status: Acute (5) Acute respiratory failure with hypoxia: Status: Acute This is a 60-year-old male who presents to the hospital with back pain found to have diverticulitis, MELISSA and pneumonia # diverticulitis with micro perforation - there is gas but in the fat tissue, - hemodynamically stable - will start him on IV antibiotics - make NPO - discussed case with Gastroenterology, will follow patient closely # MELISSA - Most likely due to dehydration, no evidence of HF - Will continue IV fluids - follow BMP # Pneumonia - CT chest shows ground glass opacity - also 8mm nodule - pt has hx of 1ppd smoking, has cough, dyspnea and sputum production - COVID -ve - IV abx - follow cultures - will need repeat of his CT chest in 6-12 months due to the presence of 8 mm nodule # acute hypoxic respiratory failure - secondary to pneumonia - currently requiring 4 L of O2 - continue management of pneumonia as above - titrate O2 as tolerated # normocytic anemia - drop from 12.5 to 9.6 within the year - positive occult blood - hemodynamically stable with no active bleed - INR of 1.2 - will consult GI - keep NPO - iron studies, B12 and folic acid # CHF - not in exacerbation - will hold furosemide in the setting of MELISSA - monitor volume status # HTN - stable - given MELISSA as well as possible sepsis in the setting of micro perforation as well as pneumonia will hold off all antihypertensives at this time as they are mostly nephrotoxic # asthma - has no wheezing - continue inhalers DVT prophylaxis: SCDs in the setting of anemia and positive occult and slightly elevated INR
[2021-02-12] MEDS: metroNIDAZOLE/NS 500 MG/100 ML PIGGYBACK 100 MG IV (23:43)
[2021-02-13] VITALS (8 sets, daily range): BP systolic 100–177; BP diastolic 54–90; PULSE 68–88; RESP 15–98; TEMP 36.1–37.1; O2SAT 93–98; BMI 49.8
[2021-02-13 00:16] LABS: Ferritin 613 ng/mL (20-250)
[2021-02-13] MEDS: Azithromycin 500 MG in 0.9 % Sodium Chloride 250 ML 125 MG IV (00:33)
[2021-02-13] MEDS: carvediloL 25 MG TABLET PO ×2 (00:36→08:23)
[2021-02-13] MEDS: amLODIPine Besylate 10 MG TABLET PO (00:36)
[2021-02-13] MEDS: metroNIDAZOLE/NS 500 MG/100 ML PIGGYBACK 100 MG IV ×3 (06:39→22:24)
[2021-02-13 06:56] LABS: Folate 6.7 ng/mL (> or = 4.0); Vitamin B12 384 pg/mL (200-900)
[2021-02-13 07:35] LABS: Hematocrit 28.9 % (42-52); Hemoglobin 9.1 g/dl (14.0-18.0); Mean Corpuscular HGB Conc 31.5 g/dl (31.0-36.0); Mean Corpuscular Volume 82.6 fL (80-98); Mean Platelet Volume 11.5 fL (9.4-12.4); Platelet Count 182 X10*3/uL (160-400); Red Cell Distribution Width 13.7 % (11.0-16.0); White Blood Count 14.5 X10*3/uL (4.8-10.8)
[2021-02-13 07:40] LABS: Glucose, Whole Blood 174 mg/dL (60-115)
[2021-02-13] MEDS: Fluticasone/Vilanterol 100/25 BLST.W.DEV 1 PUFF INHALE (07:59)
[2021-02-13 08:14] LABS: Anion Gap 18 (12-20); Blood Urea Nitrogen 61 mg/dL (9-16); Calcium 8.2 mg/dL (8.4-10.2); Carbon Dioxide 26 mmol/L (22-29); Chloride 102 mmol/L (96-108); Creatinine Clr Calc Pharmacy 37.7; Estimated Glomerular Filt Rate 24; Glucose Random 155 mg/dL (60-115); Potassium 3.5 mmol/L (3.3-5.1); Sodium 142 mmol/L (135-145)
[2021-02-13 08:20] LABS: Band Neutrophils Percent 6 % (3-5); Lymphocytes Absolute Manual 0.1 X10*3/uL (0.6-4.8); Lymphocytes Percent Manual 1 % (20-40); Monocytes Absolute Manual 0.7 X10*3/uL (0.0-1.2); Monocytes Percent Manual 5 % (2-11); Neutrophils Absolute Manual 13.6 X10*3/uL (2.2-7.9); Neutrophils Percent Manual 88 % (45-73)
[2021-02-13 08:21] LABS: Acanthocytes 1+ (0-2) /OIF; Microcytosis 1+ (5-14) /OIF; Ovalocytes 1+ (5-14) /OIF; RBC Morphology NOTED
[2021-02-13] MEDS: vancomycin HCL 1,500 MG in 0.9 % Sodium Chloride 500 ML 333.33 MG IV (08:21)
[2021-02-13 08:22] LABS: Platelet Estimate NORMAL (NORMAL); Platelet Morphology Comment NORMAL
[2021-02-13] MEDS: Buprenorphine/Naloxone 8/2 mg FILM 2 FILM SUBLINGUAL (08:23)
[2021-02-13] MEDS: 0.9 % Sodium Chloride Flush 3 ML SYRINGE IVFLUSH ×2 (08:24→17:08)
[2021-02-13] MEDS: buPROPion HCl XL 300 MG TAB.ER.24H PO (08:24)
[2021-02-13] MEDS: Cholecalciferol (Vitamin D3) 25 MCG TABLET PO (08:24)
[2021-02-13] MEDS: Lactated Ringers 1,000 ML 100 ML IVCONT (09:55)
--- NOTE | 2021-02-13 10:42 | PC.NURSE ---
Dr Severino called to bedside for an abrupt change in behavior. Patient was calm this morning and now became VERY anxious started yelling out stating his mouth tastes funny and something is wrong . BP 132/70 HR 95 NSR. 02 say 95% RR 28
[2021-02-13] MEDS: LORazepam 2 MG/ML VIAL IVPUSH (10:57)
--- NOTE | 2021-02-13 10:59 | PC.NURSE ---
pt states that he has to move bowels . very anxious. ativan given per MD order. large loose bm noted. res called for stat abg. clinical blast furnace supervisor notified of situation. 021 sats 94%2LNC 95 HR NSR
--- NOTE | 2021-02-13 11:02 | PC.NURSE ---
pt actively vomiting. md aware of situation
--- NOTE | 2021-02-13 11:16 | PC.NURSE ---
VS 93%2 LNC. HR 95 NSR. RR 28 BP 138/80 pt continues to be restless. MD aparicio
[2021-02-13 11:25] LABS: Glucose, Whole Blood 249 mg/dL (60-115)
--- NOTE | 2021-02-13 11:27 | PC.NURSE ---
Still waiting on ABG and portable XRAY. Call both dept a second time. Xray and resp both said they would be right there MD aware that they are not done yet. MD also aware of my concern for patients status at this time
--- NOTE | 2021-02-13 11:40 | PC.NURSE ---
ABG drawn and sent. o2 sats 93 on 2LNC. HR 90's NSR. RR high 20's. remain n room giving emotional support. still remains very anxious. and intermittently spitting up bile. Still waiting on XRAY.
--- NOTE | 2021-02-13 11:45 | MHC.CM.PN ---
attempted to meet with pt x 2 with interpertor pt not medically stable to interview at this time,will revisit when pt more medically stable
[2021-02-13] MEDS: HYDROmorphone HCl 0.5 MG/0.5 ML SYRINGE IVPUSH ×3 (11:58→14:18)
[2021-02-13 12:06] LABS: ABG Base Excess 3.8 mmol/L; ABG HCO3 24 mmol/L (22-26); ABG pCO2 26 mmHg (32-45); ABG pCO2 TC 25 mmHg (32-45); ABG pH 7.58 (7.35-7.45); ABG pH TC 7.59 (7.35-7.45); ABG pO2 68 mmHg (83-108); ABG pO2 TC 64 (83-108)
[2021-02-13 12:10] LABS: ABG Refer to POC result
[2021-02-13] MEDS: Insulin Lispro 100 UNIT/ML 3 ML VIAL SUBCUT ×3 (13:00→20:47)
[2021-02-13] MEDS: Fluticasone Propionate Nasal 16 GM SPRAY 2 SPRAY NOSTRIL-B (13:01)
--- NOTE | 2021-02-13 13:29 | PC.NURSE ---
xrays done around 1200pm. Continue to be 1:1 with patient due to agitation. given dose of dialudid at 11:58 to ease withdrawl symptoms.
--- NOTE | 2021-02-13 13:49 | P.PNIM_ITS ---
Subjective Subjective Date of Service: 02/13/21 Interval History: anxious, agitated, sob, abd pain Cardiovascular Cardiovascular: Reports no additional cardiovascular complaints Respiratory Respiratory: Reports no additional respiratory complaints Physical Exam Vital Signs: Vital Signs: Last Vital Signs Temp 97 F 02/13/21 13:07 Pulse 68 02/13/21 13:07 Resp 26 H 02/13/21 13:07 BP 177/90 H 02/13/21 13:07 Pulse Ox 93 02/13/21 13:07 Body Mass Index 49.8 General: delerius, anxious, agitated, diaphoretic, able to answer simple questions Resp: diminished CVS: S1,S2, rapid GI: soft, non tender, non distended Neuro: motor grossly intact Psych: impaired insight Objective Data Current Medications Generic Name Dose Route Start Last Admin Trade Name Freq PRN Reason Stop Dose Admin Acetaminophen 650 mg 02/12/21 23:34 Acetaminophen 325 Mg Tablet PO Q6H PRN Pain, Mild (Pain Scale 1-3) Albuterol/Ipratropium 3 ml 02/12/21 23:34 Albuterol/Iprat 2.5/0.5mg 3 Ml Ampul.Neb INHALE RQ4H PRN Shortness of Breath/Wheezing Amlodipine Besylate 10 mg 02/12/21 23:34 02/13/21 00:36 Amlodipine Besylate 10 Mg Tablet PO 10 mg BEDTIME ELVIE Administration Protocol Atorvastatin Calcium 80 mg 02/12/21 23:34 02/13/21 02:21 Atorvastatin Calcium 80 Mg Tablet PO Not Given BEDTIME ELIVE Bupropion HCl 300 mg 02/13/21 09:00 02/13/21 08:24 Bupropion Hcl Xl 300 Mg Tab.Er.24h PO 300 mg DAILY ELVIE Administration Carvedilol 25 mg 02/12/21 23:34 02/13/21 08:23 Carvedilol 25 Mg Tablet PO 25 mg BIDWM ELVIE Administration Protocol Docusate Sodium 100 mg 02/12/21 23:34 Docusate Sodium 100 Mg Capsule PO DAILY PRN Constipation Fluticasone Propionate 2 spray 02/13/21 09:00 02/13/21 13:01 Fluticasone Propionate Nasal 16 Gm [place] NOSTRIL-B 2 spray DAILY ELVIE Administration Fluticasone/Vilanterol 1 puff 02/13/21 08:00 02/13/21 07:59 Fluticasone/Vilanterol 100/25 Blst.W.Dev INHALE 1 puff RDAILY ELVIE Administration Hydromorphone HCl 1 mg 02/13/21 13:49 Hydromorphone Hcl 0.5 Mg/0.5 Ml Syringe IVPUSH Q2H PRN withdrawl Metronidazole 500 mg in 100 mls @ 100 mls/hr 02/12/21 22:30 02/13/21 08:26 Flagyl IV Infused Q8H ELVIE Infusion Ceftriaxone Sodium 1 gm/ 50 mls @ 100 mls/hr 02/13/21 18:00 Sodium Chloride IV Q24H ELVIE Vancomycin HCl 750 mg/ Sodium 265 mls @ 265 mls/hr 02/14/21 07:00 Chloride IV Q24H ELVIE Insulin Human Lispro 0 unit 02/13/21 11:30 02/13/21 13:00 Insulin Lispro 100 Unit/Ml 3 Ml Vial SUBCUT 4 unit QIDACHS [facility] Administration Protocol Ondansetron HCl 4 mg 02/12/21 23:34 Ondansetron Hcl 4 Mg/2 Ml Vial IVPUSH Q8H PRN Nausea and Vomiting Pharmacy Consult 1 each 02/12/21 15:31 Consult Rx Perform Med Rec MISCELLANE ONCE PRN Consult order Pharmacy Consult 1 each 02/13/21 05:48 Consult Rx Vancomycin Dosing MISCELLANE DAILY PRN Consult order Sodium Chloride 3 ml 02/13/21 00:00 02/13/21 08:24 0.9 % Sodium Chloride Flush 3 Ml Syringe IVFLUSH 3 ml QSHIFT [facility] Administration Tiotropium [place] 1 puff 02/13/21 08:00 02/13/21 07:58 Tiotropium [place] 18 Mcg Cap.W.Dev INHALE 1 puff RDAILY ELVIE Administration Vitamin D 25 mcg 02/13/21 09:00 02/13/21 08:24 Cholecalciferol (Vitamin D3) 25 Mcg Tablet PO 25 mcg DAILY ELVIE Administration Labs CBC & Chem 7: 02/13/21 06:33 02/13/21 06:33 Labs: Laboratory Results - last 24 hr 02/12/21 02/12/21 02/12/21 15:55 15:57 15:57 WBC 10.7 RBC 3.73 L Hgb 9.8 L Hct 31.0 L MCV 83.1 MCH 26.3 L MCHC 31.6 RDW 13.6 Plt Count 193 MPV 10.5 Immature Gran % (Auto) 3.4 H Neut % (Auto) 87.6 H Lymph % (Auto) 4.9 L [place] % (Auto) 3.7 Eos % (Auto) 0.2 Baso % (Auto) 0.2 Lymph # (Auto) 0.5 L [place] # (Auto) 0.4 Eos # (Auto) 0.0 Baso # (Auto) 0.0 Abs Immat Gran (auto) 0.36 H Absolute Neuts (auto) 9.4 H Absolute Nucleated RBC 0.000 Nucleated RBC % (auto) 0.0 Neutrophils % (Manual) Band Neutrophils % Lymphocytes % (Manual) Monocytes % (Manual) Abs Neuts (Manual) Lymphocytes # (Manual) Monocytes # (Manual) Platelet Estimate Plt Morphology Comment RBC Morphology Microcytosis Ovalocytes Acanthocytes (Spur) PT 14.2 H INR 1.2 H O2 Saturation ABG pH at Pt Temp ABG pH (Temp Correct) ABG pCO2 at Pt Temp ABG pCO2 (Temp Corrct ABG pO2 at Pt Temp ABG pO2 (Temp Correct ABG HCO3 ABG Base Excess (Actual) Sodium Potassium Chloride Carbon Dioxide Anion Gap BUN Creatinine Estim Creat Clear Calc Estimated GFR POC Glucose Random Glucose Lactic Acid 1.4 Calcium Magnesium Ferritin Total Bilirubin AST ALT Alkaline Phosphatase Lactate Dehydrogenase Troponin I High Sens C-Reactive Protein B-Natriuretic Peptide Total Protein Albumin Vitamin B12 Folate Procalcitonin Urine Color Urine Appearance Urine pH Ur Specific [place] Urine Protein Urine Glucose (UA) Urine Ketones Urine Blood Urine Nitrite Ur Leukocyte Esterase Urine RBC Urine WBC Ur Squamous Epith Cells Ur Renal Epithelial Cell Amorphous Sediment Urine Bacteria Granular Casts Stool Occult Blood Respiratory Panel [place] Adenovirus (Rapid PCR) B.pert (TEM-PCR) B.parapertussis DNA PCR C. pneumoniae DNA (PCR) Coronavirus (PCR) Coronavirus OC43 (PCR) Coronavirus HKU1 (PCR) Coronavirus 229E (PCR) Coronavirus NL63 (PCR) Human Metapneumovir PCR Influenza A (RT-PCR) Influenza Type A (PCR) Influenza B (RT-PCR) Influenza Type B (PCR) M. pneumoniae (PCR) Parainfluenza 1 (PCR) Parainfluenza 2 (PCR) Parainfluenza 3 (PCR) Parainfluenza 4 (PCR) RSV (PCR) RSV RNA Qual (PCR) Entero/Rhino (PCR) SARS-CoV-2 RNA (RT-PCR) 02/12/21 02/12/21 02/12/21 15:57 15:57 15:57 WBC RBC Hgb Hct MCV MCH MCHC RDW Plt Count MPV Immature Gran % (Auto) Neut % (Auto) Lymph % (Auto) [place] % (Auto) Eos % (Auto) Baso % (Auto) Lymph # (Auto) [place] # (Auto) Eos # (Auto) Baso # (Auto) Abs Immat Gran (auto) Absolute Neuts (auto) Absolute Nucleated RBC Nucleated RBC % (auto) Neutrophils % (Manual) Band Neutrophils % Lymphocytes % (Manual) Monocytes % (Manual) Abs Neuts (Manual) Lymphocytes # (Manual) Monocytes # (Manual) Platelet Estimate Plt Morphology Comment RBC Morphology Microcytosis Ovalocytes Acanthocytes (Spur) PT INR O2 Saturation ABG pH at Pt Temp ABG pH (Temp Correct) ABG pCO2 at Pt Temp ABG pCO2 (Temp Corrct ABG pO2 at Pt Temp ABG pO2 (Temp Correct ABG HCO3 ABG Base Excess (Actual) Sodium 142 Potassium 4.1 Chloride 99 Carbon Dioxide 26 Anion Gap 21 H BUN 61 H Creatinine 3.19 H Estim Creat Clear Calc 27.7 Estimated GFR 20 POC Glucose Random Glucose 159 H Lactic Acid Calcium 8.8 Magnesium 2.1 Ferritin 549 H Total Bilirubin 0.5 AST 54 H ALT 47 H Alkaline Phosphatase 109 Lactate Dehydrogenase 214 Troponin I High Sens 4.5 C-Reactive Protein 33.70 H B-Natriuretic Peptide Total Protein 5.5 L Albumin 3.2 L Vitamin B12 Folate Procalcitonin Urine Color Urine Appearance Urine pH Ur Specific [place] Urine Protein Urine Glucose (UA) Urine Ketones Urine Blood Urine Nitrite Ur Leukocyte Esterase Urine RBC Urine WBC Ur Squamous Epith Cells Ur Renal Epithelial Cell Amorphous Sediment Urine Bacteria Granular Casts Stool Occult Blood Respiratory Panel [place] Adenovirus (Rapid PCR) B.pert (TEM-PCR) B.parapertussis DNA PCR C. pneumoniae DNA (PCR) Coronavirus (PCR) Coronavirus OC43 (PCR) Coronavirus HKU1 (PCR) Coronavirus 229E (PCR) Coronavirus NL63 (PCR) Human Metapneumovir PCR Influenza A (RT-PCR) Influenza Type A (PCR) Influenza B (RT-PCR) Influenza Type B (PCR) M. pneumoniae (PCR) Parainfluenza 1 (PCR) Parainfluenza 2 (PCR) Parainfluenza 3 (PCR) Parainfluenza 4 (PCR) RSV (PCR) RSV RNA Qual (PCR) Entero/Rhino (PCR) SARS-CoV-2 RNA (RT-PCR) 02/12/21 02/12/21 02/12/21 15:57 15:58 15:58 WBC RBC Hgb Hct MCV MCH MCHC RDW Plt Count MPV Immature Gran % (Auto) Neut % (Auto) Lymph % (Auto) [place] % (Auto) Eos % (Auto) Baso % (Auto) Lymph # (Auto) [place] # (Auto) Eos # (Auto) Baso # (Auto) Abs Immat Gran (auto) Absolute Neuts (auto) Absolute Nucleated RBC Nucleated RBC % (auto) Neutrophils % (Manual) Band Neutrophils % Lymphocytes % (Manual) Monocytes % (Manual) Abs Neuts (Manual) Lymphocytes # (Manual) Monocytes # (Manual) Platelet Estimate Plt Morphology Comment RBC Morphology Microcytosis Ovalocytes Acanthocytes (Spur) PT INR O2 Saturation ABG pH at Pt Temp ABG pH (Temp Correct) ABG pCO2 at Pt Temp ABG pCO2 (Temp Corrct ABG pO2 at Pt Temp ABG pO2 (Temp Correct ABG HCO3 ABG Base Excess (Actual) Sodium Potassium Chloride Carbon Dioxide Anion Gap BUN Creatinine Estim Creat Clear Calc Estimated GFR POC Glucose Random Glucose Lactic Acid Calcium Magnesium Ferritin Total Bilirubin AST ALT Alkaline Phosphatase Lactate Dehydrogenase Troponin I High Sens C-Reactive Protein B-Natriuretic Peptide 93 Total Protein Albumin Vitamin B12 Folate Procalcitonin 252.71 Urine Color Urine Appearance Urine pH Ur Specific [place] Urine Protein Urine Glucose (UA) Urine Ketones Urine Blood Urine Nitrite Ur Leukocyte Esterase Urine RBC Urine WBC Ur Squamous Epith Cells Ur Renal Epithelial Cell Amorphous Sediment Urine Bacteria Granular Casts Stool Occult Blood Respiratory Panel [place] Adenovirus (Rapid PCR) B.pert (TEM-PCR) B.parapertussis DNA PCR C. pneumoniae DNA (PCR) Coronavirus (PCR) NEGATIVE Coronavirus OC43 (PCR) Coronavirus HKU1 (PCR) Coronavirus 229E (PCR) Coronavirus NL63 (PCR) Human Metapneumovir PCR Influenza A (RT-PCR) Influenza Type A (PCR) NEGATIVE Influenza B (RT-PCR) Influenza Type B (PCR) NEGATIVE M. pneumoniae (PCR) Parainfluenza 1 (PCR) Parainfluenza 2 (PCR) Parainfluenza 3 (PCR) Parainfluenza 4 (PCR) RSV (PCR) RSV RNA Qual (PCR) NEGATIVE Entero/Rhino (PCR) SARS-CoV-2 RNA (RT-PCR) 02/12/21 02/12/21 02/12/21 15:58 16:20 18:07 WBC RBC Hgb Hct MCV MCH MCHC RDW Plt Count MPV Immature Gran % (Auto) Neut % (Auto) Lymph % (Auto) [place] % (Auto) Eos % (Auto) Baso % (Auto) Lymph # (Auto) [place] # (Auto) Eos # (Auto) Baso # (Auto) Abs Immat Gran (auto) Absolute Neuts (auto) Absolute Nucleated RBC Nucleated RBC % (auto) Neutrophils % (Manual) Band Neutrophils % Lymphocytes % (Manual) Monocytes % (Manual) Abs Neuts (Manual) Lymphocytes # (Manual) Monocytes # (Manual) Platelet Estimate Plt Morphology Comment RBC Morphology Microcytosis Ovalocytes Acanthocytes (Spur) PT INR O2 Saturation ABG pH at Pt Temp ABG pH (Temp Correct) ABG pCO2 at Pt Temp ABG pCO2 (Temp Corrct ABG pO2 at Pt Temp ABG pO2 (Temp Correct ABG HCO3 ABG Base Excess (Actual) Sodium Potassium Chloride Carbon Dioxide Anion Gap BUN Creatinine Estim Creat Clear Calc Estimated GFR POC Glucose Random Glucose Lactic Acid Calcium Magnesium Ferritin Total Bilirubin AST ALT Alkaline Phosphatase Lactate Dehydrogenase Troponin I High Sens C-Reactive Protein B-Natriuretic Peptide Total Protein Albumin Vitamin B12 Folate Procalcitonin Urine Color YELLOW Urine Appearance HAZY Urine pH 5.5 Ur Specific [place] 1.025 Urine Protein 1+ H Urine Glucose (UA) NEG Urine Ketones NEG Urine Blood NEG Urine Nitrite NEG Ur Leukocyte Esterase NEG Urine RBC 0 Urine WBC 0 Ur Squamous Epith Cells NONE Ur Renal Epithelial Cell 3+ Amorphous Sediment 2+ Urine Bacteria NONE Granular Casts 5-9 Stool Occult Blood POSITIVE Respiratory Panel Paul[place] See Note Adenovirus (Rapid PCR) Not Detected B.pert (TEM-PCR) Not Detected B.parapertussis DNA PCR Not Detected C. pneumoniae DNA (PCR) Not Detected Coronavirus (PCR) Coronavirus OC43 (PCR) Not Detected Coronavirus HKU1 (PCR) Not Detected Coronavirus 229E (PCR) Not Detected Coronavirus NL63 (PCR) Not Detected Human Metapneumovir PCR Not Detected Influenza A (RT-PCR) Not Detected Influenza Type A (PCR) Influenza B (RT-PCR) Not Detected Influenza Type B (PCR) M. pneumoniae (PCR) Not Detected Parainfluenza 1 (PCR) Not Detected Parainfluenza 2 (PCR) Not Detected Parainfluenza 3 (PCR) Not Detected Parainfluenza 4 (PCR) Not Detected RSV (PCR) Not Detected RSV RNA Qual (PCR) Entero/Rhino (PCR) Not Detected SARS-CoV-2 RNA (RT-PCR) Not Detected 02/12/21 02/12/21 02/12/21 18:54 22:41 22:41 WBC RBC Hgb Hct MCV MCH MCHC RDW Plt Count MPV Immature Gran % (Auto) Neut % (Auto) Lymph % (Auto) [place] % (Auto) Eos % (Auto) Baso % (Auto) Lymph # (Auto) [place] # (Auto) Eos # (Auto) Baso # (Auto) Abs Immat Gran (auto) Absolute Neuts (auto) Absolute Nucleated RBC Nucleated RBC % (auto) Neutrophils % (Manual) Band Neutrophils % Lymphocytes % (Manual) Monocytes % (Manual) Abs Neuts (Manual) Lymphocytes # (Manual) Monocytes # (Manual) Platelet Estimate Plt Morphology Comment RBC Morphology Microcytosis Ovalocytes Acanthocytes (Spur) PT INR O2 Saturation ABG pH at Pt Temp ABG pH (Temp Correct) ABG pCO2 at Pt Temp ABG pCO2 (Temp Corrct ABG pO2 at Pt Temp ABG pO2 (Temp Correct ABG HCO3 ABG Base Excess (Actual) Sodium 141 Potassium 4.2 Chloride 98 Carbon Dioxide 26 Anion Gap 21 H BUN 59 H Creatinine 2.76 H Estim Creat Clear Calc 32.1 Estimated GFR 23 POC Glucose Random Glucose 168 H Lactic Acid Calcium 8.7 Magnesium Ferritin 613 H Total Bilirubin AST ALT Alkaline Phosphatase Lactate Dehydrogenase Troponin I High Sens 4.4 C-Reactive Protein B-Natriuretic Peptide Total Protein Albumin Vitamin B12 384 Folate 6.7 Procalcitonin Urine Color Urine Appearance Urine pH Ur Specific [place] Urine Protein Urine Glucose (UA) Urine Ketones Urine Blood Urine Nitrite Ur Leukocyte Esterase Urine RBC Urine WBC Ur Squamous Epith Cells Ur Renal Epithelial Cell Amorphous Sediment Urine Bacteria Granular Casts Stool Occult Blood Respiratory Panel [place] Adenovirus (Rapid PCR) B.pert (TEM-PCR) B.parapertussis DNA PCR C. pneumoniae DNA (PCR) Coronavirus (PCR) Coronavirus OC43 (PCR) Coronavirus HKU1 (PCR) Coronavirus 229E (PCR) Coronavirus NL63 (PCR) Human Metapneumovir PCR Influenza A (RT-PCR) Influenza Type A (PCR) Influenza B (RT-PCR) Influenza Type B (PCR) M. pneumoniae (PCR) Parainfluenza 1 (PCR) Parainfluenza 2 (PCR) Parainfluenza 3 (PCR) Parainfluenza 4 (PCR) RSV (PCR) RSV RNA Qual (PCR) Entero/Rhino (PCR) SARS-CoV-2 RNA (RT-PCR) 02/13/21 02/13/21 02/13/21 06:33 06:33 07:36 WBC 14.5 H RBC 3.50 L Hgb 9.1 L Hct 28.9 L MCV 82.6 MCH 26.0 L MCHC 31.5 RDW 13.7 Plt Count 182 MPV 11.5 Immature Gran % (Auto) Cancelled Neut % (Auto) Cancelled Lymph % (Auto) Cancelled [place] % (Auto) Cancelled Eos % (Auto) Cancelled Baso % (Auto) Cancelled Lymph # (Auto) Cancelled [place] # (Auto) Cancelled Eos # (Auto) Cancelled Baso # (Auto) Cancelled Abs Immat Gran (auto) Cancelled Absolute Neuts (auto) Cancelled Absolute Nucleated RBC 0.000 Nucleated RBC % (auto) 0.0 Neutrophils % (Manual) 88 H Band Neutrophils % 6 H Lymphocytes % (Manual) 1 L Monocytes % (Manual) 5 Abs Neuts (Manual) 13.6 H Lymphocytes # (Manual) 0.1 L Monocytes # (Manual) 0.7 Platelet Estimate NORMAL Plt Morphology Comment NORMAL RBC Morphology NOTED Microcytosis 1+ (5-14) Ovalocytes 1+ (5-14) Acanthocytes (Spur) 1+ (0-2) PT INR O2 Saturation ABG pH at Pt Temp ABG pH (Temp Correct) ABG pCO2 at Pt Temp ABG pCO2 (Temp Corrct ABG pO2 at Pt Temp ABG pO2 (Temp Correct ABG HCO3 ABG Base Excess (Actual) Sodium 142 Potassium 3.5 Chloride 102 Carbon Dioxide 26 Anion Gap 18 BUN 61 H Creatinine 2.71 H Estim Creat Clear Calc 37.7 Estimated GFR 24 POC Glucose 174 H Random Glucose 155 H Lactic Acid Calcium 8.2 L Magnesium Ferritin Total Bilirubin AST ALT Alkaline Phosphatase Lactate Dehydrogenase Troponin I High Sens C-Reactive Protein B-Natriuretic Peptide Total Protein Albumin Vitamin B12 Folate Procalcitonin Urine Color Urine Appearance Urine pH Ur Specific [place] Urine Protein Urine Glucose (UA) Urine Ketones Urine Blood Urine Nitrite Ur Leukocyte Esterase Urine RBC Urine WBC Ur Squamous Epith Cells Ur Renal Epithelial Cell Amorphous Sediment Urine Bacteria Granular Casts Stool Occult Blood Respiratory Panel [place] Adenovirus (Rapid PCR) B.pert (TEM-PCR) B.parapertussis DNA PCR C. pneumoniae DNA (PCR) Coronavirus (PCR) Coronavirus OC43 (PCR) Coronavirus HKU1 (PCR) Coronavirus 229E (PCR) Coronavirus NL63 (PCR) Human Metapneumovir PCR Influenza A (RT-PCR) Influenza Type A (PCR) Influenza B (RT-PCR) Influenza Type B (PCR) M. pneumoniae (PCR) Parainfluenza 1 (PCR) Parainfluenza 2 (PCR) Parainfluenza 3 (PCR) Parainfluenza 4 (PCR) RSV (PCR) RSV RNA Qual (PCR) Entero/Rhino (PCR) SARS-CoV-2 RNA (RT-PCR) 02/13/21 02/13/21 11:19 11:43 WBC RBC Hgb Hct MCV MCH MCHC RDW Plt Count MPV Immature Gran % (Auto) Neut % (Auto) Lymph % (Auto) [place] % (Auto) Eos % (Auto) Baso % (Auto) Lymph # (Auto) [place] # (Auto) Eos # (Auto) Baso # (Auto) Abs Immat Gran (auto) Absolute Neuts (auto) Absolute Nucleated RBC Nucleated RBC % (auto) Neutrophils % (Manual) Band Neutrophils % Lymphocytes % (Manual) Monocytes % (Manual) Abs Neuts (Manual) Lymphocytes # (Manual) Monocytes # (Manual) Platelet Estimate Plt Morphology Comment RBC Morphology Microcytosis Ovalocytes Acanthocytes (Spur) PT INR O2 Saturation 93.0 ABG pH at Pt Temp 7.58 H ABG pH (Temp Correct) 7.59 H ABG pCO2 at Pt Temp 26 L ABG pCO2 (Temp Corrct 25 L ABG pO2 at Pt Temp 68 L ABG pO2 (Temp Correct 64 L ABG HCO3 24 ABG Base Excess (Actual) 3.8 Sodium Potassium Chloride Carbon Dioxide Anion Gap BUN Creatinine Estim Creat Clear Calc Estimated GFR POC Glucose 249 H Random Glucose Lactic Acid Calcium Magnesium Ferritin Total Bilirubin AST ALT Alkaline Phosphatase Lactate Dehydrogenase Troponin I High Sens C-Reactive Protein B-Natriuretic Peptide Total Protein Albumin Vitamin B12 Folate Procalcitonin Urine Color Urine Appearance Urine pH Ur Specific [place] Urine Protein Urine Glucose (UA) Urine Ketones Urine Blood Urine Nitrite Ur Leukocyte Esterase Urine RBC Urine WBC Ur Squamous Epith Cells Ur Renal Epithelial Cell Amorphous Sediment Urine Bacteria Granular Casts Stool Occult Blood Respiratory Panel [place] Adenovirus (Rapid PCR) B.pert (TEM-PCR) B.parapertussis DNA PCR C. pneumoniae DNA (PCR) Coronavirus (PCR) Coronavirus OC43 (PCR) Coronavirus HKU1 (PCR) Coronavirus 229E (PCR) Coronavirus NL63 (PCR) Human Metapneumovir PCR Influenza A (RT-PCR) Influenza Type A (PCR) Influenza B (RT-PCR) Influenza Type B (PCR) M. pneumoniae (PCR) Parainfluenza 1 (PCR) Parainfluenza 2 (PCR) Parainfluenza 3 (PCR) Parainfluenza 4 (PCR) RSV (PCR) RSV RNA Qual (PCR) Entero/Rhino (PCR) SARS-CoV-2 RNA (RT-PCR) Microbiology Microbiology Results: Microbiology 02/12/21 15:57 Blood Culture - Preliminary Blood - Venous 02/12/21 15:57 Blood Culture - Preliminary Blood - Venous Assessment and Plan (1) Sepsis: Status: Acute Assessment and Plan: 60M presented with back pain, found to have sepsis due to diverticulitis with microperforatoin complciated by acute hypoxic respiraotry failure from pnuemonia, MELISSA, delerium severe sepsis poa due to acute diverticulitis with micro perforation and pneumonia complicated by gram-positive bacteremia and acute hypoxic respiratory failure continue ceftriaxone, Flagyl, vancomycin follow-up species and sensitivities follow-up surgery NPO, IV fluids acute delirium due to opioid dependence with withdrawal responding to IV Dilaudid addiction eval diabetes insulin chronic diastolic CHF will keep on maintenance fluids, monitor for overload hold Lasix acute kidney injury due to sepsis IV fluids, monitor DVT prophylaxis with heparin
[2021-02-13] MEDS: Heparin Sodium,Porcine 5,000 UNIT/ML VIAL 5000 UNIT SUBCUT ×2 (14:18→20:48)
[2021-02-13 14:25] LABS: B Type Natriuretic Peptide 194 pg/mL (<100)
[2021-02-13] MEDS: Dextrose 5 % and 0.45 % NaCl 1,000 ML 80 ML IVCONT (14:33)
--- NOTE | 2021-02-13 14:56 | P.CONGS_ITS ---
History of Present Illness Consult details Consult date: 02/13/21 Reason for consult: abdominal pain (Diverticulitis) Requesting physician: Alok Severino Narrative: This is a 60-year-old male with past history of hypertension, hyperlipidemia, diabetes mellitus, asthma, GERD, and opioid dependence who presented to the emergency department yesterday with complaints of back pain of 4-5 days duration. Examination revealed significant abdominal tenderness and a CT scan of the abdomen and pelvis was obtained and demonstrated findings consist ent with sigmoid diverticulitis with micro perforation. He also was noted to have anemia, hemoglobin 9.1, and guaiac-positive stool raising concern for possible colon carcinoma. Gastroenterology consultation was requested. Additional findings included ground-glass changes of both upper lobes noted on chest CT as well as an 8 mm nodule in the left upper lobe. BUN and creatinine were abnormal at 59 and 2.76. White blood count on presentation was 14.5. Two blood cultures drawn in the emergency department are positive for gram-positive cocci. Today, he developed agitation, apparently due to opioid withdrawal For which he is under treatment currently. He was awake and reported abdominal pain and shortness of breath. He did not respond to many questions though he did provide some information. He denied a history of fever or chills. He did not respond to many questions including questions regarding prior history of similar problems, change in severity of abdominal pain, or history of colonoscopy, but no record of this is available in his hospital chart. He does give a history of prior episodes of shortness of breath and reports use of respiratory medications at home. Review of Systems Review of Systems: Yes Unobtainable due to mental condition Neurologic: Reports confusion Psychiatric: Psychiatric: Reports confusion [facility] Past Medical History Medical History Asthma Congestive heart failure COPD (chronic obstructive pulmonary disease) Coronary artery disease Diabetes Hypertension Obesity Obstructive sleep apnea Family History Family History Father No problems noted. Mother No problems noted. Surgical History Surgical History H/O hernia repair Hx of colonoscopy Social History Social History Household Members: None Housing: House Do you presently have visiting nurse or other home services: No Alcohol intake: never Patient Tobacco Use Status: Current everyday Tobacco user Use of substances other than those prescribed or required for medical reasons: No Currently Displaying Signs/Symptoms of Drug Intoxication Withdrawal: No Spiritual Healthcare Practices: no Mosque Healthcare Practices: no Cultural Healthcare Practices: no Advance Directives: No Advance Directives Information Provided: Yes Do you have thoughts of harming others: None Do you have a plan to hurt others: No Plan Recently lost weight without trying: Unsure How much weight loss: Unsure Eating poorly because of decreased appetite: No Nutrition screen score: 4 Nutrition Risks: No Nutritional Risk Poor oral hygiene: No service: No Meds Allergies Allergy/AdvReac Type Severity Reaction Status Date / Time crab [CRAB] Allergy Unknown ANAPHYLAXIS Verified 02/13/21 06:35 lisinopril [LISINOPRIL] Allergy Unknown cough Verified 02/13/21 06:35 Penicillins [PCN] Allergy Unknown RASH Verified 02/13/21 06:35 Sulfa (Sulfonamide Allergy Unknown RASH Verified 02/13/21 06:35 Antibiotics) [SULFA (SULFONAMIDE ANTIBIOTICS)] Active Medications: Current Medications Generic Name Dose Route Start Last Admin Trade Name Freq PRN Reason Stop Dose Admin Acetaminophen 650 mg 02/12/21 23:34 Acetaminophen 325 Mg Tablet PO Q6H PRN Pain, Mild (Pain Scale 1-3) Albuterol/Ipratropium 3 ml 02/12/21 23:34 Albuterol/Iprat 2.5/0.5mg 3 Ml Ampul.Neb INHALE RQ4H PRN Shortness of Breath/Wheezing Amlodipine Besylate 10 mg 02/12/21 23:34 02/13/21 00:36 Amlodipine Besylate 10 Mg Tablet PO 10 mg BEDTIME ELVIE Administration Protocol Atorvastatin Calcium 80 mg 02/12/21 23:34 02/13/21 02:21 Atorvastatin Calcium 80 Mg Tablet PO Not Given BEDTIME ELVIE Bupropion HCl 300 mg 02/13/21 09:00 02/13/21 08:24 Bupropion Hcl Xl 300 Mg Tab.Er.24h PO 300 mg DAILY ELVIE Administration Carvedilol 25 mg 02/12/21 23:34 02/13/21 08:23 Carvedilol 25 Mg Tablet PO 25 mg BIDWM ELVIE Administration Protocol Docusate Sodium 100 mg 02/12/21 23:34 Docusate Sodium 100 Mg Capsule PO DAILY PRN Constipation Fluticasone Propionate 2 spray 02/13/21 09:00 02/13/21 13:01 Fluticasone Propionate Nasal 16 Gm [place] NOSTRIL-B 2 spray DAILY ELVIE Administration Fluticasone/Vilanterol 1 puff 02/13/21 08:00 02/13/21 07:59 Fluticasone/Vilanterol 100/25 Blst.W.Dev INHALE 1 puff RDAILY ELVIE Administration Heparin Sodium (Porcine) 5,000 unit 02/13/21 14:00 02/13/21 14:18 Heparin Sodium,Porcine 5,000 Unit/Ml Vial SUBCUT 5,000 unit Q8H ELVIE Administration Hydromorphone HCl 1 mg 02/13/21 13:49 Hydromorphone Hcl 0.5 Mg/0.5 Ml Syringe IVPUSH Q2H PRN withdrawl Metronidazole 500 mg in 100 mls @ 100 mls/hr 02/12/21 22:30 02/13/21 14:52 Flagyl IV 100 mls/hr Q8H ELVIE Administration Ceftriaxone Sodium 1 gm/ 50 mls @ 100 mls/hr 02/13/21 18:00 Sodium Chloride IV Q24H ELVIE Vancomycin HCl 750 mg/ Sodium 265 mls @ 265 mls/hr 02/14/21 07:00 Chloride IV Q24H ELVIE Dextrose/Sodium Chloride 1,000 mls @ 80 mls/hr 02/13/21 14:00 02/13/21 14:33 D51/2ns IVCONT 80 mls/hr .[id number] ELVIE Administration Insulin Human Lispro 0 unit 02/13/21 11:30 02/13/21 13:00 Insulin Lispro 100 Unit/Ml 3 Ml Vial SUBCUT 4 unit QIDACHS ELVIE Administration Protocol Ondansetron HCl 4 mg 02/12/21 23:34 Ondansetron Hcl 4 Mg/2 Ml Vial IVPUSH Q8H PRN Nausea and Vomiting Pharmacy Consult 1 each 02/12/21 15:31 Consult Rx Perform Med Rec MISCELLANE ONCE PRN Consult order Pharmacy Consult 1 each 02/13/21 05:48 Consult Rx Vancomycin Dosing MISCELLANE DAILY PRN Consult order Sodium Chloride 3 ml 02/13/21 00:00 02/13/21 08:24 0.9 % Sodium Chloride Flush 3 Ml Syringe IVFLUSH 3 ml QSHIFT ELVIE Administration Tiotropium [place] 1 puff 02/13/21 08:00 02/13/21 07:58 Tiotropium [place] 18 Mcg Cap.W.Dev INHALE 1 puff RDAILY ELVIE Administration Vitamin D 25 mcg 02/13/21 09:00 02/13/21 08:24 Cholecalciferol (Vitamin D3) 25 Mcg Tablet PO 25 mcg DAILY ELVIE Administration Home Medications Medication Instructions Recorded Confirmed Last Taken Type albuterol sulfate [ProAir HFA] 2 puff INHALATION Q4H PRN 02/12/21 02/12/21 Unknown History amlodipine 10 mg PO QPM 02/12/21 02/12/21 Unknown History buprenorphine-naloxone [Suboxone] 2 strip SUBLINGUAL DAILY 02/12/21 02/12/21 Unknown History bupropion HCl 150 mg PO BID 02/12/21 02/12/21 Unknown History calcium carbonate-vitamin D3 1 tab PO BID 02/12/21 02/12/21 Unknown History [Oyster [place] Calcium-Vit D3] carvedilol 25 mg PO BID 02/12/21 02/12/21 Unknown History cholecalciferol (vitamin D3) 1,000 unit PO DAILY 02/12/21 02/12/21 Unknown History clopidogrel 75 mg PO DAILY 02/12/21 02/12/21 Unknown History fluticasone propion-salmeterol 1 puff INHALATION BID 02/12/21 02/12/21 Unknown History [Advair Diskus] fluticasone propionate 2 spray INTRANASAL DAILY 02/12/21 02/12/21 Unknown History furosemide 40 mg PO DAILY 02/12/21 02/12/21 Unknown History hydralazine 100 tab PO TID 02/12/21 02/12/21 Unknown History isosorbide mononitrate 60 mg PO DAILY 02/12/21 02/12/21 Unknown History losartan 100 mg PO DAILY 02/12/21 02/12/21 Unknown History metformin 500 mg PO BID 02/12/21 02/12/21 Unknown History nicotine (polacrilex) 1 ea PO Q2H PRN 02/12/21 02/12/21 Unknown History omeprazole 20 mg PO DAILY 02/12/21 02/12/21 Unknown History rosuvastatin 40 mg PO BEDTIME 02/12/21 02/12/21 Unknown History spironolactone 25 mg PO BID 02/12/21 02/12/21 Unknown History tiotropium bromide [Spiriva with 1 cap INHALATION DAILY 02/12/21 02/12/21 Unknown History HandiHaler] Physical Exam Vital Signs: Vital Signs: Last Vital Signs Temp 97 F 02/13/21 13:07 Pulse 68 02/13/21 13:07 Resp 26 H 02/13/21 13:07 BP 177/90 H 02/13/21 13:07 Pulse Ox 93 02/13/21 13:07 Body Mass Index 49.8 Const: General: anxious, confusion and ill appearing Orientation/cons ciousness: confusion HENMT: Head: Yes normocephalic and Yes atraumatic Eyes: General: appearance normal, both eyes and all related structures Resp: Other: Tachypneic, soft wheezes bilaterally Cardio: Rate: regular rate Rhythm: regular rhythm Peripheral pulses: dorsalis pedis present bilateral 2+ GI: Other: Soft, round, no palpable masses, normal bowel sounds, moderately tender mid to medial aspect right lower Skin: Other: Normal color, warm Neuro: General: confusion Extrem: General: Yes normal to inspection Psych: Speech and movement: Psychomotor agitation in speech present Insight: Limited insight present (Psych) Results Labs Result diagrams: 02/13/21 06:33 02/13/21 06:33 Labs: Abnormal lab results 02/12/21 02/12/21 02/12/21 Range/Units 15:57 15:57 15:57 WBC (4.8-10.8) X10*3/uL RBC 3.73 L (4.60-5.80) X10*6/uL Hgb 9.8 L (14.0-18.0) g/dl Hct 31.0 L (42-52) % MCH 26.3 L (27.0-33.0) pg Immature Gran % (Auto) 3.4 H (0.0-0.4) % Neut % (Auto) 87.6 H (45-73) % Lymph % (Auto) 4.9 L (20-40) % Lymph # (Auto) 0.5 L (1.2-4.9) X10*3/uL Abs Immat Gran (auto) 0.36 H (0.00-0.03) X10*3/uL Absolute Neuts (auto) 9.4 H (2.0-8.3) X10*3/uL Neutrophils % (Manual) (45-73) % Band Neutrophils % (3-5) % Lymphocytes % (Manual) (20-40) % Abs Neuts (Manual) (2.2-7.9) X10*3/uL Lymphocytes # (Manual) (0.6-4.8) X10*3/uL PT 14.2 H (10.8-13.0) SEC INR 1.2 H (0.9-1.1) ABG pH at Pt Temp (7.35-7.45) ABG pH (Temp Correct) (7.35-7.45) ABG pCO2 at Pt Temp (32-45) mmHg ABG pCO2 (Temp Corrct (32-45) mmHg ABG pO2 at Pt Temp (83-108) mmHg ABG pO2 (Temp Correct (83-108) Anion Gap 21 H (12-20) BUN 61 H (9-16) mg/dL Creatinine 3.19 H (0.5-1.4) mg/dL POC Glucose (60-115) mg/dL Random Glucose 159 H (60-115) mg/dL Calcium (8.4-10.2) mg/dL Ferritin 549 H (20-250) ng/mL AST 54 H (5-37) U/L ALT 47 H (0-40) U/L C-Reactive Protein 33.70 H (< or = 0.50) mg/dL B-Natriuretic Peptide (<100) pg/mL Total Protein 5.5 L (6.5-8.0) g/dL Albumin 3.2 L (3.5-5.0) g/dL Urine Protein (NEG-TRACE) MG/DL 02/12/21 02/12/21 02/13/21 Range/Units 15:58 22:41 06:33 WBC 14.5 H (4.8-10.8) X10*3/uL RBC 3.50 L (4.60-5.80) X10*6/uL Hgb 9.1 L (14.0-18.0) g/dl Hct 28.9 L (42-52) % MCH 26.0 L (27.0-33.0) pg Immature Gran % (Auto) (0.0-0.4) % Neut % (Auto) (45-73) % Lymph % (Auto) (20-40) % Lymph # (Auto) (1.2-4.9) X10*3/uL Abs Immat Gran (auto) (0.00-0.03) X10*3/uL Absolute Neuts (auto) (2.0-8.3) X10*3/uL Neutrophils % (Manual) 88 H (45-73) % Band Neutrophils % 6 H (3-5) % Lymphocytes % (Manual) 1 L (20-40) % Abs Neuts (Manual) 13.6 H (2.2-7.9) X10*3/uL Lymphocytes # (Manual) 0.1 L (0.6-4.8) X10*3/uL PT (10.8-13.0) SEC INR (0.9-1.1) ABG pH at Pt Temp (7.35-7.45) ABG pH (Temp Correct) (7.35-7.45) ABG pCO2 at Pt Temp (32-45) mmHg ABG pCO2 (Temp Corrct (32-45) mmHg ABG pO2 at Pt Temp (83-108) mmHg ABG pO2 (Temp Correct (83-108) Anion Gap 21 H (12-20) BUN 59 H (9-16) mg/dL Creatinine 2.76 H (0.5-1.4) mg/dL POC Glucose (60-115) mg/dL Random Glucose 168 H (60-115) mg/dL Calcium (8.4-10.2) mg/dL Ferritin 613 H (20-250) ng/mL AST (5-37) U/L ALT (0-40) U/L C-Reactive Protein (< or = 0.50) mg/dL B-Natriuretic Peptide (<100) pg/mL Total Protein (6.5-8.0) g/dL Albumin (3.5-5.0) g/dL Urine Protein 1+ H (NEG-TRACE) MG/DL 02/13/21 02/13/21 02/13/21 Range/Units 06:33 07:36 11:19 WBC (4.8-10.8) X10*3/uL RBC (4.60-5.80) X10*6/uL Hgb (14.0-18.0) g/dl Hct (42-52) % MCH (27.0-33.0) pg Immature Gran % (Auto) (0.0-0.4) % Neut % (Auto) (45-73) % Lymph % (Auto) (20-40) % Lymph # (Auto) (1.2-4.9) X10*3/uL Abs Immat Gran (auto) (0.00-0.03) X10*3/uL Absolute Neuts (auto) (2.0-8.3) X10*3/uL Neutrophils % (Manual) (45-73) % Band Neutrophils % (3-5) % Lymphocytes % (Manual) (20-40) % Abs Neuts (Manual) (2.2-7.9) X10*3/uL Lymphocytes # (Manual) (0.6-4.8) X10*3/uL PT (10.8-13.0) SEC INR (0.9-1.1) ABG pH at Pt Temp (7.35-7.45) ABG pH (Temp Correct) (7.35-7.45) ABG pCO2 at Pt Temp (32-45) mmHg ABG pCO2 (Temp Corrct (32-45) mmHg ABG pO2 at Pt Temp (83-108) mmHg ABG pO2 (Temp Correct (83-108) Anion Gap (12-20) BUN 61 H (9-16) mg/dL Creatinine 2.71 H (0.5-1.4) mg/dL POC Glucose 174 H 249 H (60-115) mg/dL Random Glucose 155 H (60-115) mg/dL Calcium 8.2 L (8.4-10.2) mg/dL Ferritin (20-250) ng/mL AST (5-37) U/L ALT (0-40) U/L C-Reactive Protein (< or = 0.50) mg/dL B-Natriuretic Peptide (<100) pg/mL Total Protein (6.5-8.0) g/dL Albumin (3.5-5.0) g/dL Urine Protein (NEG-TRACE) MG/DL 02/13/21 02/13/21 Range/Units 11:43 12:53 WBC (4.8-10.8) X10*3/uL RBC (4.60-5.80) X10*6/uL Hgb (14.0-18.0) g/dl Hct (42-52) % MCH (27.0-33.0) pg Immature Gran % (Auto) (0.0-0.4) % Neut % (Auto) (45-73) % Lymph % (Auto) (20-40) % Lymph # (Auto) (1.2-4.9) X10*3/uL Abs Immat Gran (auto) (0.00-0.03) X10*3/uL Absolute Neuts (auto) (2.0-8.3) X10*3/uL Neutrophils % (Manual) (45-73) % Band Neutrophils % (3-5) % Lymphocytes % (Manual) (20-40) % Abs Neuts (Manual) (2.2-7.9) X10*3/uL Lymphocytes # (Manual) (0.6-4.8) X10*3/uL PT (10.8-13.0) SEC INR (0.9-1.1) ABG pH at Pt Temp 7.58 H (7.35-7.45) ABG pH (Temp Correct) 7.59 H (7.35-7.45) ABG pCO2 at Pt Temp 26 L (32-45) mmHg ABG pCO2 (Temp Corrct 25 L (32-45) mmHg ABG pO2 at Pt Temp 68 L (83-108) mmHg ABG pO2 (Temp Correct 64 L (83-108) Anion Gap (12-20) BUN (9-16) mg/dL Creatinine (0.5-1.4) mg/dL POC Glucose (60-115) mg/dL Random Glucose (60-115) mg/dL Calcium (8.4-10.2) mg/dL Ferritin (20-250) ng/mL AST (5-37) U/L ALT (0-40) U/L C-Reactive Protein (< or = 0.50) mg/dL B-Natriuretic Peptide 194 H (<100) pg/mL Total Protein (6.5-8.0) g/dL Albumin (3.5-5.0) g/dL Urine Protein (NEG-TRACE) MG/DL Short CBC 02/12/21 02/13/21 Range/Units 15:57 06:33 WBC 10.7 14.5 H (4.8-10.8) X10*3/uL Hgb 9.8 L 9.1 L (14.0-18.0) g/dl Hct 31.0 L 28.9 L (42-52) % Plt Count 193 182 (160-400) X10*3/uL BMP 02/12/21 02/12/21 02/13/21 15:57 22:41 06:33 Sodium 142 141 142 Potassium 4.1 4.2 3.5 Chloride 99 98 102 Carbon Dioxide 26 26 26 BUN 61 H 59 H 61 H Creatinine 3.19 H 2.76 H 2.71 H Calcium 8.8 8.7 8.2 L Liver Function 02/12/21 Range/Units 15:57 Total Bilirubin 0.5 (0.0-1.0) mg/dL AST 54 H (5-37) U/L ALT 47 H (0-40) U/L Alkaline Phosphatase 109 (39-117) U/L Albumin 3.2 L (3.5-5.0) g/dL Urine 02/12/21 Range/Units 15:58 Urine Color YELLOW Urine Appearance HAZY Urine pH 5.5 (5.0-8.0) Ur Specific [place] 1.025 (1.005-1.025) Urine Protein 1+ H (NEG-TRACE) MG/DL Urine Glucose (UA) NEG (NEG) MG/DL All other labs normal. Assessment and Plan (1) Diverticulitis: Status: Acute (2) Opioid abuse: Status: Acute (3) Acute respiratory failure with hypoxia: Status: Acute (4) Sepsis: Status: Acute 60-year-old male with diverticulitis with micro perforation, pneumonia and respiratory failure complicated by opioid withdrawal. No evidence of acute surgical process at this point. Continue antibiotics, ceftriaxone, metronidazole and vancomycin. Await identification of Gram-positive cocci in blood cultures. General Surgery Service will follow along. Procedures Date of Service Date of Service: 02/13/21
[2021-02-13 16:01] LABS: Glucose, Whole Blood 201 mg/dL (60-115)
--- NOTE | 2021-02-13 16:30 | MHC.RECOVRN ---
60 year old male presented to [facility] via EMS on 02/12 due to VOMITTING/WEAKNESS/HEADACHE/MUSCLE ACHES/SOB X3 DAYS per manager membership. Pt subsequently admitted for treatment of diverticulitis?with microperforation, MELISSA, pneumonia, and acute respiratory failure with hypoxia.? T/w met with pt in 487 after consult placed to Addiction?Medicine for opioid dependence and withdrawal. Pt difficult to engage in conversation, pt appears restless, extraneous?movements?of arms and legs, diaphoretic, vomiting at times. Pt reports using one bag of heroin daily, [place], for an unknown length of time. Pt is currently prescribed Suboxone through [facility], 8mg/2mg BID. Pt reports history of methadone through [facility], unknown when pt was attending the [facility].? Pts Suboxone administered around?9AM, shortly after pt began experiencing precipitated withdrawal symptoms.? Case discussed with Sasha Avendano APRN, pts nurse, as well as Gemini Escoto NP. Pt to be seen by PRAVIN Singletary.?
[2021-02-13] MEDS: HYDROmorphone HCl 0.5 MG/0.5 ML SYRINGE 1 MG IVPUSH ×3 (16:38→20:47)
[2021-02-13] MEDS: ondansetron HCL 4 MG/2 ML VIAL IVPUSH (16:56)
--- NOTE | 2021-02-13 17:13 | HO.ADDICT_ITS ---
History of Present Illness Date of Service: 02/13/2021 Chief Complaint: MELISSA, CAP, CHF Exacerbation Review of Systems Constitutional: Reports body ache(s) (genralized body aches and malaise) Comments: teary eyes Reports as per HPI Reports as per HPI Psychiatric: Reports anxiety Diagnostics Vital Signs (24Hr): Vital Signs - 24 hr 02/12/21 18:03 02/12/21 18:05 02/12/21 18:31 Temperature 98.1 F Pulse Rate 69 67 71 Respiratory Rate 18 16 16 Blood Pressure 108/68 107/61 107/61 Pulse Oximetry 88 L 97 96 02/12/21 20:20 02/12/21 22:20 02/12/21 23:35 Temperature 98.5 F 100.7 F H 99.5 F Pulse Rate 79 101 H 106 H Respiratory Rate 20 28 H 22 H Blood Pressure 116/70 154/87 H 156/100 H Pulse Oximetry 95 93 92 02/13/21 03:28 02/13/21 07:01 02/13/21 08:23 Temperature 97.9 F 97 F Pulse Rate 85 68 68 Respiratory Rate 20 22 H Blood Pressure 112/58 L 100/54 L 100/54 L Pulse Oximetry 94 94 02/13/21 11:32 02/13/21 13:07 02/13/21 15:37 Temperature 97.1 F 97 F 98.8 F Pulse Rate 68 68 88 Respiratory Rate 98 H 26 H 20 Blood Pressure 132/74 177/90 H 146/84 H Pulse Oximetry 93 95 Body Mass Index 49.8 Labs Results: 02/13/21 06:33 02/13/21 06:33 Labs: Laboratory Results - last 48 hr 02/12/21 02/12/21 02/12/21 15:55 15:57 15:57 WBC 10.7 RBC 3.73 L Hgb 9.8 L Hct 31.0 L MCV 83.1 MCH 26.3 L MCHC 31.6 RDW 13.6 Plt Count 193 MPV 10.5 Immature Gran % (Auto) 3.4 H Neut % (Auto) 87.6 H Lymph % (Auto) 4.9 L [place] % (Auto) 3.7 Eos % (Auto) 0.2 Baso % (Auto) 0.2 Lymph # (Auto) 0.5 L [place] # (Auto) 0.4 Eos # (Auto) 0.0 Baso # (Auto) 0.0 Abs Immat Gran (auto) 0.36 H Absolute Neuts (auto) 9.4 H Absolute Nucleated RBC 0.000 Nucleated RBC % (auto) 0.0 Neutrophils % (Manual) Band Neutrophils % Lymphocytes % (Manual) Monocytes % (Manual) Abs Neuts (Manual) Lymphocytes # (Manual) Monocytes # (Manual) Platelet Estimate Plt Morphology Comment RBC Morphology Microcytosis Ovalocytes Acanthocytes (Spur) PT 14.2 H INR 1.2 H O2 Saturation ABG pH at Pt Temp ABG pH (Temp Correct) ABG pCO2 at Pt Temp ABG pCO2 (Temp Corrct ABG pO2 at Pt Temp ABG pO2 (Temp Correct ABG HCO3 ABG Base Excess (Actual) Sodium Potassium Chloride Carbon Dioxide Anion Gap BUN Creatinine Estim Creat Clear Calc Estimated GFR POC Glucose Random Glucose Lactic Acid 1.4 Calcium Magnesium Ferritin Total Bilirubin AST ALT Alkaline Phosphatase Lactate Dehydrogenase Troponin I High Sens C-Reactive Protein B-Natriuretic Peptide Total Protein Albumin Vitamin B12 Folate Procalcitonin Urine Color Urine Appearance Urine pH Ur Specific [place] Urine Protein Urine Glucose (UA) Urine Ketones Urine Blood Urine Nitrite Ur Leukocyte Esterase Urine RBC Urine WBC Ur Squamous Epith Cells Ur Renal Epithelial Cell Amorphous Sediment Urine Bacteria Granular Casts Stool Occult Blood Respiratory Panel Paulino Adenovirus (Rapid PCR) B.pert (TEM-PCR) B.parapertussis DNA PCR C. pneumoniae DNA (PCR) Coronavirus (PCR) Coronavirus OC43 (PCR) Coronavirus HKU1 (PCR) Coronavirus 229E (PCR) Coronavirus NL63 (PCR) Human Metapneumovir PCR Influenza A (RT-PCR) Influenza Type A (PCR) Influenza B (RT-PCR) Influenza Type B (PCR) M. pneumoniae (PCR) Parainfluenza 1 (PCR) Parainfluenza 2 (PCR) Parainfluenza 3 (PCR) Parainfluenza 4 (PCR) RSV (PCR) RSV RNA Qual (PCR) Entero/Rhino (PCR) SARS-CoV-2 RNA (RT-PCR) 02/12/21 02/12/21 02/12/21 15:57 15:57 15:57 WBC RBC Hgb Hct MCV MCH MCHC RDW Plt Count MPV Immature Gran % (Auto) Neut % (Auto) Lymph % (Auto) [place] % (Auto) Eos % (Auto) Baso % (Auto) Lymph # (Auto) [place] # (Auto) Eos # (Auto) Baso # (Auto) Abs Immat Gran (auto) Absolute Neuts (auto) Absolute Nucleated RBC Nucleated RBC % (auto) Neutrophils % (Manual) Band Neutrophils % Lymphocytes % (Manual) Monocytes % (Manual) Abs Neuts (Manual) Lymphocytes # (Manual) Monocytes # (Manual) Platelet Estimate Plt Morphology Comment RBC Morphology Microcytosis Ovalocytes Acanthocytes (Spur) PT INR O2 Saturation ABG pH at Pt Temp ABG pH (Temp Correct) ABG pCO2 at Pt Temp ABG pCO2 (Temp Corrct ABG pO2 at Pt Temp ABG pO2 (Temp Correct ABG HCO3 ABG Base Excess (Actual) Sodium 142 Potassium 4.1 Chloride 99 Carbon Dioxide 26 Anion Gap 21 H BUN 61 H Creatinine 3.19 H Estim Creat Clear Calc 27.7 Estimated GFR 20 POC Glucose Random Glucose 159 H Lactic Acid Calcium 8.8 Magnesium 2.1 Ferritin 549 H Total Bilirubin 0.5 AST 54 H ALT 47 H Alkaline Phosphatase 109 Lactate Dehydrogenase 214 Troponin I High Sens 4.5 C-Reactive Protein 33.70 H B-Natriuretic Peptide Total Protein 5.5 L Albumin 3.2 L Vitamin B12 Folate Procalcitonin Urine Color Urine Appearance Urine pH Ur Specific [place] Urine Protein Urine Glucose (UA) Urine Ketones Urine Blood Urine Nitrite Ur Leukocyte Esterase Urine RBC Urine WBC Ur Squamous Epith Cells Ur Renal Epithelial Cell Amorphous Sediment Urine Bacteria Granular Casts Stool Occult Blood Respiratory Panel Paulino Adenovirus (Rapid PCR) B.pert (TEM-PCR) B.parapertussis DNA PCR C. pneumoniae DNA (PCR) Coronavirus (PCR) Coronavirus OC43 (PCR) Coronavirus HKU1 (PCR) Coronavirus 229E (PCR) Coronavirus NL63 (PCR) Human Metapneumovir PCR Influenza A (RT-PCR) Influenza Type A (PCR) Influenza B (RT-PCR) Influenza Type B (PCR) M. pneumoniae (PCR) Parainfluenza 1 (PCR) Parainfluenza 2 (PCR) Parainfluenza 3 (PCR) Parainfluenza 4 (PCR) RSV (PCR) RSV RNA Qual (PCR) Entero/Rhino (PCR) SARS-CoV-2 RNA (RT-PCR) 02/12/21 02/12/21 02/12/21 15:57 15:58 15:58 WBC RBC Hgb Hct MCV MCH MCHC RDW Plt Count MPV Immature Gran % (Auto) Neut % (Auto) Lymph % (Auto) [place] % (Auto) Eos % (Auto) Baso % (Auto) Lymph # (Auto) [place] # (Auto) Eos # (Auto) Baso # (Auto) Abs Immat Gran (auto) Absolute Neuts (auto) Absolute Nucleated RBC Nucleated RBC % (auto) Neutrophils % (Manual) Band Neutrophils % Lymphocytes % (Manual) Monocytes % (Manual) Abs Neuts (Manual) Lymphocytes # (Manual) Monocytes # (Manual) Platelet Estimate Plt Morphology Comment RBC Morphology Microcytosis Ovalocytes Acanthocytes (Spur) PT INR O2 Saturation ABG pH at Pt Temp ABG pH (Temp Correct) ABG pCO2 at Pt Temp ABG pCO2 (Temp Corrct ABG pO2 at Pt Temp ABG pO2 (Temp Correct ABG HCO3 ABG Base Excess (Actual) Sodium Potassium Chloride Carbon Dioxide Anion Gap BUN Creatinine Estim Creat Clear Calc Estimated GFR POC Glucose Random Glucose Lactic Acid Calcium Magnesium Ferritin Total Bilirubin AST ALT Alkaline Phosphatase Lactate Dehydrogenase Troponin I High Sens C-Reactive Protein B-Natriuretic Peptide 93 Total Protein Albumin Vitamin B12 Folate Procalcitonin 252.71 Urine Color Urine Appearance Urine pH Ur Specific [place] Urine Protein Urine Glucose (UA) Urine Ketones Urine Blood Urine Nitrite Ur Leukocyte Esterase Urine RBC Urine WBC Ur Squamous Epith Cells Ur Renal Epithelial Cell Amorphous Sediment Urine Bacteria Granular Casts Stool Occult Blood Respiratory Panel Paulino Adenovirus (Rapid PCR) B.pert (TEM-PCR) B.parapertussis DNA PCR C. pneumoniae DNA (PCR) Coronavirus (PCR) NEGATIVE Coronavirus OC43 (PCR) Coronavirus HKU1 (PCR) Coronavirus 229E (PCR) Coronavirus NL63 (PCR) Human Metapneumovir PCR Influenza A (RT-PCR) Influenza Type A (PCR) NEGATIVE Influenza B (RT-PCR) Influenza Type B (PCR) NEGATIVE M. pneumoniae (PCR) Parainfluenza 1 (PCR) Parainfluenza 2 (PCR) Parainfluenza 3 (PCR) Parainfluenza 4 (PCR) RSV (PCR) RSV RNA Qual (PCR) NEGATIVE Entero/Rhino (PCR) SARS-CoV-2 RNA (RT-PCR) 02/12/21 02/12/2121 15:58 16:20 18:07 WBC RBC Hgb Hct MCV MCH MCHC RDW Plt Count MPV Immature Gran % (Auto) Neut % (Auto) Lymph % (Auto) [place] % (Auto) Eos % (Auto) Baso % (Auto) Lymph # (Auto) [place] # (Auto) Eos # (Auto) Baso # (Auto) Abs Immat Gran (auto) Absolute Neuts (auto) Absolute Nucleated RBC Nucleated RBC % (auto) Neutrophils % (Manual) Band Neutrophils % Lymphocytes % (Manual) Monocytes % (Manual) Abs Neuts (Manual) Lymphocytes # (Manual) Monocytes # (Manual) Platelet Estimate Plt Morphology Comment RBC Morphology Microcytosis Ovalocytes Acanthocytes (Spur) PT INR O2 Saturation ABG pH at Pt Temp ABG pH (Temp Correct) ABG pCO2 at Pt Temp ABG pCO2 (Temp Corrct ABG pO2 at Pt Temp ABG pO2 (Temp Correct ABG HCO3 ABG Base Excess (Actual) Sodium Potassium Chloride Carbon Dioxide Anion Gap BUN Creatinine Estim Creat Clear Calc Estimated GFR POC Glucose Random Glucose Lactic Acid Calcium Magnesium Ferritin Total Bilirubin AST ALT Alkaline Phosphatase Lactate Dehydrogenase Troponin I High Sens C-Reactive Protein B-Natriuretic Peptide Total Protein Albumin Vitamin B12 Folate Procalcitonin Urine Color YELLOW Urine Appearance HAZY Urine pH 5.5 Ur Specific [place] 1.025 Urine Protein 1+ H Urine Glucose (UA) NEG Urine Ketones NEG Urine Blood NEG Urine Nitrite NEG Ur Leukocyte Esterase NEG Urine RBC 0 Urine WBC 0 Ur Squamous Epith Cells NONE Ur Renal Epithelial Cell 3+ Amorphous Sediment 2+ Urine Bacteria NONE Granular Casts 5-9 Stool Occult Blood POSITIVE Respiratory Panel Paulino See Note Adenovirus (Rapid PCR) Not Detected B.pert (TEM-PCR) Not Detected B.parapertussis DNA PCR Not Detected C. pneumoniae DNA (PCR) Not Detected Coronavirus (PCR) Coronavirus OC43 (PCR) Not Detected Coronavirus HKU1 (PCR) Not Detected Coronavirus 229E (PCR) Not Detected Coronavirus NL63 (PCR) Not Detected Human Metapneumovir PCR Not Detected Influenza A (RT-PCR) Not Detected Influenza Type A (PCR) Influenza B (RT-PCR) Not Detected Influenza Type B (PCR) M. pneumoniae (PCR) Not Detected Parainfluenza 1 (PCR) Not Detected Parainfluenza 2 (PCR) Not Detected Parainfluenza 3 (PCR) Not Detected Parainfluenza 4 (PCR) Not Detected RSV (PCR) Not Detected RSV RNA Qual (PCR) Entero/Rhino (PCR) Not Detected SARS-CoV-2 RNA (RT-PCR) Not Detected 02/12/21 02/12/21 02/12/21 18:54 22:41 22:41 WBC RBC Hgb Hct MCV MCH MCHC RDW Plt Count MPV Immature Gran % (Auto) Neut % (Auto) Lymph % (Auto) [place] % (Auto) Eos % (Auto) Baso % (Auto) Lymph # (Auto) [place] # (Auto) Eos # (Auto) Baso # (Auto) Abs Immat Gran (auto) Absolute Neuts (auto) Absolute Nucleated RBC Nucleated RBC % (auto) Neutrophils % (Manual) Band Neutrophils % Lymphocytes % (Manual) Monocytes % (Manual) Abs Neuts (Manual) Lymphocytes # (Manual) Monocytes # (Manual) Platelet Estimate Plt Morphology Comment RBC Morphology Microcytosis Ovalocytes Acanthocytes (Spur) PT INR O2 Saturation ABG pH at Pt Temp ABG pH (Temp Correct) ABG pCO2 at Pt Temp ABG pCO2 (Temp Corrct ABG pO2 at Pt Temp ABG pO2 (Temp Correct ABG HCO3 ABG Base Excess (Actual) Sodium 141 Potassium 4.2 Chloride 98 Carbon Dioxide 26 Anion Gap 21 H BUN 59 H Creatinine 2.76 H Estim Creat Clear Calc 32.1 Estimated GFR 23 POC Glucose Random Glucose 168 H Lactic Acid Calcium 8.7 Magnesium Ferritin 613 H Total Bilirubin AST ALT Alkaline Phosphatase Lactate Dehydrogenase Troponin I High Sens 4.4 C-Reactive Protein B-Natriuretic Peptide Total Protein Albumin Vitamin B12 384 Folate 6.7 Procalcitonin Urine Color Urine Appearance Urine pH Ur Specific [place] Urine Protein Urine Glucose (UA) Urine Ketones Urine Blood Urine Nitrite Ur Leukocyte Esterase Urine RBC Urine WBC Ur Squamous Epith Cells Ur Renal Epithelial Cell Amorphous Sediment Urine Bacteria Granular Casts Stool Occult Blood Respiratory Panel Paulino Adenovirus (Rapid PCR) B.pert (TEM-PCR) B.parapertussis DNA PCR C. pneumoniae DNA (PCR) Coronavirus (PCR) Coronavirus OC43 (PCR) Coronavirus HKU1 (PCR) Coronavirus 229E (PCR) Coronavirus NL63 (PCR) Human Metapneumovir PCR Influenza A (RT-PCR) Influenza Type A (PCR) Influenza B (RT-PCR) Influenza Type B (PCR) M. pneumoniae (PCR) Parainfluenza 1 (PCR) Parainfluenza 2 (PCR) Parainfluenza 3 (PCR) Parainfluenza 4 (PCR) RSV (PCR) RSV RNA Qual (PCR) Entero/Rhino (PCR) SARS-CoV-2 RNA (RT-PCR) 02/13/21 02/13/21 02/13/21 06:33 06:33 07:36 WBC 14.5 H RBC 3.50 L Hgb 9.1 L Hct 28.9 L MCV 82.6 MCH 26.0 L MCHC 31.5 RDW 13.7 Plt Count 182 MPV 11.5 Immature Gran % (Auto) Cancelled Neut % (Auto) Cancelled Lymph % (Auto) Cancelled [place] % (Auto) Cancelled Eos % (Auto) Cancelled Baso % (Auto) Cancelled Lymph # (Auto) Cancelled [place] # (Auto) Cancelled Eos # (Auto) Cancelled Baso # (Auto) Cancelled Abs Immat Gran (auto) Cancelled Absolute Neuts (auto) Cancelled Absolute Nucleated RBC 0.000 Nucleated RBC % (auto) 0.0 Neutrophils % (Manual) 88 H Band Neutrophils % 6 H Lymphocytes % (Manual) 1 L Monocytes % (Manual) 5 Abs Neuts (Manual) 13.6 H Lymphocytes # (Manual) 0.1 L Monocytes # (Manual) 0.7 Platelet Estimate NORMAL Plt Morphology Comment NORMAL RBC Morphology NOTED Microcytosis 1+ (5-14) Ovalocytes 1+ (5-14) Acanthocytes (Spur) 1+ (0-2) PT INR O2 Saturation ABG pH at Pt Temp ABG pH (Temp Correct) ABG pCO2 at Pt Temp ABG pCO2 (Temp Corrct ABG pO2 at Pt Temp ABG pO2 (Temp Correct ABG HCO3 ABG Base Excess (Actual) Sodium 142 Potassium 3.5 Chloride 102 Carbon Dioxide 26 Anion Gap 18 BUN 61 H Creatinine 2.71 H Estim Creat Clear Calc 37.7 Estimated GFR 24 POC Glucose 174 H Random Glucose 155 H Lactic Acid Calcium 8.2 L Magnesium Ferritin Total Bilirubin AST ALT Alkaline Phosphatase Lactate Dehydrogenase Troponin I High Sens C-Reactive Protein B-Natriuretic Peptide Total Protein Albumin Vitamin B12 Folate Procalcitonin Urine Color Urine Appearance Urine pH Ur Specific [place] Urine Protein Urine Glucose (UA) Urine Ketones Urine Blood Urine Nitrite Ur Leukocyte Esterase Urine RBC Urine WBC Ur Squamous Epith Cells Ur Renal Epithelial Cell Amorphous Sediment Urine Bacteria Granular Casts Stool Occult Blood Respiratory Panel Paulino Adenovirus (Rapid PCR) B.pert (TEM-PCR) B.parapertussis DNA PCR C. pneumoniae DNA (PCR) Coronavirus (PCR) Coronavirus OC43 (PCR) Coronavirus HKU1 (PCR) Coronavirus 229E (PCR) Coronavirus NL63 (PCR) Human Metapneumovir PCR Influenza A (RT-PCR) Influenza Type A (PCR) Influenza B (RT-PCR) Influenza Type B (PCR) M. pneumoniae (PCR) Parainfluenza 1 (PCR) Parainfluenza 2 (PCR) Parainfluenza 3 (PCR) Parainfluenza 4 (PCR) RSV (PCR) RSV RNA Qual (PCR) Entero/Rhino (PCR) SARS-CoV-2 RNA (RT-PCR) 02/13/21 02/13/21 02/13/21 11:19 11:43 12:53 WBC RBC Hgb Hct MCV MCH MCHC RDW Plt Count MPV Immature Gran % (Auto) Neut % (Auto) Lymph % (Auto) [place] % (Auto) Eos % (Auto) Baso % (Auto) Lymph # (Auto) [place] # (Auto) Eos # (Auto) Baso # (Auto) Abs Immat Gran (auto) Absolute Neuts (auto) Absolute Nucleated RBC Nucleated RBC % (auto) Neutrophils % (Manual) Band Neutrophils % Lymphocytes % (Manual) Monocytes % (Manual) Abs Neuts (Manual) Lymphocytes # (Manual) Monocytes # (Manual) Platelet Estimate Plt Morphology Comment RBC Morphology Microcytosis Ovalocytes Acanthocytes (Spur) PT INR O2 Saturation 93.0 ABG pH at Pt Temp 7.58 H ABG pH (Temp Correct) 7.59 H ABG pCO2 at Pt Temp 26 L ABG pCO2 (Temp Corrct 25 L ABG pO2 at Pt Temp 68 L ABG pO2 (Temp Correct 64 L ABG HCO3 24 ABG Base Excess (Actual) 3.8 Sodium Potassium Chloride Carbon Dioxide Anion Gap BUN Creatinine Estim Creat Clear Calc Estimated GFR POC Glucose 249 H Random Glucose Lactic Acid Calcium Magnesium Ferritin Total Bilirubin AST ALT Alkaline Phosphatase Lactate Dehydrogenase Troponin I High Sens C-Reactive Protein B-Natriuretic Peptide 194 H Total Protein Albumin Vitamin B12 Folate Procalcitonin Urine Color Urine Appearance Urine pH Ur Specific [place] Urine Protein Urine Glucose (UA) Urine Ketones Urine Blood Urine Nitrite Ur Leukocyte Esterase Urine RBC Urine WBC Ur Squamous Epith Cells Ur Renal Epithelial Cell Amorphous Sediment Urine Bacteria Granular Casts Stool Occult Blood Respiratory Panel Paulino Adenovirus (Rapid PCR) B.pert (TEM-PCR) B.parapertussis DNA PCR C. pneumoniae DNA (PCR) Coronavirus (PCR) Coronavirus OC43 (PCR) Coronavirus HKU1 (PCR) Coronavirus 229E (PCR) Coronavirus NL63 (PCR) Human Metapneumovir PCR Influenza A (RT-PCR) Influenza Type A (PCR) Influenza B (RT-PCR) Influenza Type B (PCR) M. pneumoniae (PCR) Parainfluenza 1 (PCR) Parainfluenza 2 (PCR) Parainfluenza 3 (PCR) Parainfluenza 4 (PCR) RSV (PCR) RSV RNA Qual (PCR) Entero/Rhino (PCR) SARS-CoV-2 RNA (RT-PCR) 02/13/21 15:52 WBC RBC Hgb Hct MCV MCH MCHC RDW Plt Count MPV Immature Gran % (Auto) Neut % (Auto) Lymph % (Auto) [place] % (Auto) Eos % (Auto) Baso % (Auto) Lymph # (Auto) [place] # (Auto) Eos # (Auto) Baso # (Auto) Abs Immat Gran (auto) Absolute Neuts (auto) Absolute Nucleated RBC Nucleated RBC % (auto) Neutrophils % (Manual) Band Neutrophils % Lymphocytes % (Manual) Monocytes % (Manual) Abs Neuts (Manual) Lymphocytes # (Manual) Monocytes # (Manual) Platelet Estimate Plt Morphology Comment RBC Morphology Microcytosis Ovalocytes Acanthocytes (Spur) PT INR O2 Saturation ABG pH at Pt Temp ABG pH (Temp Correct) ABG pCO2 at Pt Temp ABG pCO2 (Temp Corrct ABG pO2 at Pt Temp ABG pO2 (Temp Correct ABG HCO3 ABG Base Excess (Actual) Sodium Potassium Chloride Carbon Dioxide Anion Gap BUN Creatinine Estim Creat Clear Calc Estimated GFR POC Glucose 201 H Random Glucose Lactic Acid Calcium Magnesium Ferritin Total Bilirubin AST ALT Alkaline Phosphatase Lactate Dehydrogenase Troponin I High Sens C-Reactive Protein B-Natriuretic Peptide Total Protein Albumin Vitamin B12 Folate Procalcitonin Urine Color Urine Appearance Urine pH Ur Specific [place] Urine Protein Urine Glucose (UA) Urine Ketones Urine Blood Urine Nitrite Ur Leukocyte Esterase Urine RBC Urine WBC Ur Squamous Epith Cells Ur Renal Epithelial Cell Amorphous Sediment Urine Bacteria Granular Casts Stool Occult Blood Respiratory Panel Paulino Adenovirus (Rapid PCR) B.pert (TEM-PCR) B.parapertussis DNA PCR C. pneumoniae DNA (PCR) Coronavirus (PCR) Coronavirus OC43 (PCR) Coronavirus HKU1 (PCR) Coronavirus 229E (PCR) Coronavirus NL63 (PCR) Human Metapneumovir PCR Influenza A (RT-PCR) Influenza Type A (PCR) Influenza B (RT-PCR) Influenza Type B (PCR) M. pneumoniae (PCR) Parainfluenza 1 (PCR) Parainfluenza 2 (PCR) Parainfluenza 3 (PCR) Parainfluenza 4 (PCR) RSV (PCR) RSV RNA Qual (PCR) Entero/Rhino (PCR) SARS-CoV-2 RNA (RT-PCR) Imaging Radiology Impressions: ITS Impressions Chest X-Ray 02/12/21 15:31 IMPRESSION: Unremarkable chest exam. Chest CT 02/12/21 16:32 IMPRESSION: No acute intrathoracic disease. 8 mm lung nodule in the area of groundglass change. According to the UPDATED 2017 Fleischner Society recommendations, the advised follow-up imaging for a single 6-8 mm solid nodule is: LOW RISK PATIENT: CT at 6-12 months, then consider CT at 18-24 months. HIGH RISK PATIENT: CT at 6-12 months, then at 18-24 months. Venous Duplex 02/12/21 17:44 IMPRESSION: There is surgery variation on color and spectral flow seen in the lower extremities normal color flow and spectral Doppler evaluation in both lower extremities. However no compression or augmentation technique was utilized hence DVT cannot be excluded. There is bilateral calf edema. Abdomen/Pelvis CT 02/12/21 20:59 IMPRESSION: Focal diverticulitis of the distal descending/proximal sigmoid colon. There is microperforation with small collection of gas in the pericolonic fat but no abscess. This critical result was discussed with Dr. Palma on 02/12/2021, 10:20 PM and it was ascertained that the content and urgency of the report was understood at the time of direct communication. Chest X-Ray 02/13/21 12:25 IMPRESSION: No free air seen. Mental Status Exam Mental Status Exam Patient Appearance: Fatigued and Unkempt Patient Orientation: Person, Place, Time and Situation Level of Consciousness: Appropriate, Drowsy (Drowsy at first, then alert and able to converse appropriately. ) and Restless Patient Behavior: Appropriate and Cooperative Mood Description: Anxious and Nervous Affect Description: Anxious and Nervous Patient Cognition Impaired: No Ability to Follow Directions: Excellent Speech Pattern: Clear Memory Description: Episodic Impaired (difficulty with dates. ) Hallucinations: None Delusions: Not Present Thought Process: Intact Thought Content: positive for Intact Depressive Symptoms: Increased Anxiety Abnormal Motor Activity Signs and Symptoms: Restlessness Judgement: Fair Judgement and Insight: Difficult to fully assess judgment and insight at this time. However, it does appear patient has recently been using heroin. He reports he was using approximately one bag daily, via inhalation. Medications Medications Current Medications Generic Name Dose Route Start Last Admin Trade Name Freq PRN Reason Stop Dose Admin Acetaminophen 650 mg 02/12/21 23:34 Acetaminophen 325 Mg Tablet PO Q6H PRN Pain, Mild (Pain Scale 1-3) Albuterol/Ipratropium 3 ml 02/12/21 23:34 Albuterol/Iprat 2.5/0.5mg 3 Ml Ampul.Neb INHALE RQ4H PRN Shortness of Breath/Wheezing Amlodipine Besylate 10 mg 02/12/21 23:34 02/13/21 00:36 Amlodipine Besylate 10 Mg Tablet PO 10 mg BEDTIME ELVIE Administration Protocol Atorvastatin Calcium 80 mg 02/12/21 23:34 02/13/21 02:21 Atorvastatin Calcium 80 Mg Tablet PO Not Given BEDTIME ELVIE Bupropion HCl 300 mg 02/13/21 09:00 02/13/21 08:24 Bupropion Hcl Xl 300 Mg Tab.Er.24h PO 300 mg DAILY ELVIE Administration Carvedilol 25 mg 02/12/21 23:34 02/13/21 08:23 Carvedilol 25 Mg Tablet PO 25 mg BIDWM ELVIE Administration Protocol Docusate Sodium 100 mg 02/12/21 23:34 Docusate Sodium 100 Mg Capsule PO DAILY PRN Constipation Fluticasone Propionate 2 spray 02/13/21 09:00 02/13/21 13:01 Fluticasone Propionate Nasal 16 Gm [place] NOSTRIL-B 2 spray DAILY ELVIE Administration Fluticasone/Vilanterol 1 puff 02/13/21 08:00 02/13/21 07:59 Fluticasone/Vilanterol 100/25 Blst.W.Dev INHALE 1 puff RDAILY ELVIE Administration Heparin Sodium (Porcine) 5,000 unit 02/13/21 14:00 02/13/21 14:18 Heparin Sodium,Porcine 5,000 Unit/Ml Vial SUBCUT 5,000 unit Q8H ELVIE Administration Hydromorphone HCl 1 mg 02/13/21 13:49 02/13/21 16:38 Hydromorphone Hcl 0.5 Mg/0.5 Ml Syringe IVPUSH 1 mg Q2H PRN Administration withdrawl Metronidazole 500 mg in 100 mls @ 100 mls/hr 02/12/21 22:30 02/13/21 16:00 Flagyl IV Infused Q8H ELVIE Infusion Ceftriaxone Sodium 1 gm/ 50 mls @ 100 mls/hr 02/13/21 18:00 Sodium Chloride IV Q24H ELVIE Vancomycin HCl 750 mg/ Sodium 265 mls @ 265 mls/hr 02/14/21 07:00 Chloride IV Q24H ELVIE Dextrose/Sodium Chloride 1,000 mls @ 80 mls/hr 02/13/21 14:00 02/13/21 14:33 D51/2ns IVCONT 80 mls/hr .[id number] ELVIE Administration Insulin Human Lispro 0 unit 02/13/21 11:30 02/13/21 17:07 Insulin Lispro 100 Unit/Ml 3 Ml Vial SUBCUT 4 unit QIDACHS ELVIE Administration Protocol Ondansetron HCl 4 mg 02/12/21 23:34 02/13/21 16:56 Ondansetron Hcl 4 Mg/2 Ml Vial IVPUSH 4 mg Q8H PRN Administration Nausea and Vomiting Pharmacy Consult 1 each 02/12/21 15:31 Consult Rx Perform Med Rec MISCELLANE ONCE PRN Consult order Pharmacy Consult 1 each 02/13/21 05:48 Consult Rx Vancomycin Dosing MISCELLANE DAILY PRN Consult order Sodium Chloride 3 ml 02/13/21 00:00 02/13/21 17:08 0.9 % Sodium Chloride Flush 3 Ml Syringe IVFLUSH 3 ml QSHIFT ELVIE Administration Tiotropium Mallory 1 puff 02/13/21 08:00 02/13/21 07:58 Tiotropium Mallory 18 Mcg Cap.W.Dev INHALE 1 puff RDAILY ELVIE Administration Vitamin D 25 mcg 02/13/21 09:00 02/13/21 08:24 Cholecalciferol (Vitamin D3) 25 Mcg Tablet PO 25 mcg DAILY ELVIE Administration Allergies Allergies Allergy/AdvReac Type Severity Reaction Status Date / Time crab [CRAB] Allergy Unknown ANAPHYLAXIS Verified 02/13/21 06:35 lisinopril [LISINOPRIL] Allergy Unknown cough Verified 02/13/21 06:35 Penicillins [PCN] Allergy Unknown RASH Verified 02/13/21 06:35 Sulfa (Sulfonamide Allergy Unknown RASH Verified 02/13/21 06:35 Antibiotics) [SULFA (SULFONAMIDE ANTIBIOTICS)] Assessment & Plan Assessment & Plan (1) Opioid use disorder, severe, dependence: Status: Acute Code(s): F11.20 - Opioid dependence, uncomplicated Recommendations: Patient appears to have experienced a precipitated withdrawal reaction shortly after receiving suboxone this morning. RECOMMENDATIONS: Continue holding suboxone for now. Would continue using short-acting opioids such as dilaudid for now, as this will help manage withdrawal symptoms. Would refrain from using any long-acting opioids for now, as that could impede the process of suboxone reinitiation, as patient needs to be in withdrawals when re-starting suboxone therapy. You may want to consider lorazepam for now, in order to help with withdrawal management / agitation. I have my thoughts with Dr. Alok Severino, and Sasha Avendano, [facility] [facility], via secure messaging. Thank you for this consultation. Greater than 50% of the session was spent on counseling and/or coordination of care PMFSH Past Medical History Medical Problems Affecting Mental Status: Yes (Diverticulitis, reports pain. ) Medical History Asthma Congestive heart failure COPD (chronic obstructive pulmonary disease) Coronary artery disease Diabetes Hypertension Obesity Obstructive sleep apnea Psychiatric History: Substance Abuse History Family History Family History Father No problems noted. Mother No problems noted. Surgical History Surgical History H/O hernia repair Hx of colonoscopy Social History Social History Household Members: None Housing: House Do you presently have visiting nurse or other home services: No Alcohol intake: never Patient Tobacco Use Status: Current everyday Tobacco user Use of substances other than those prescribed or required for medical reasons: No Currently Displaying Signs/Symptoms of Drug Intoxication Withdrawal: No Spiritual Healthcare Practices: no Christian Healthcare Practices: no Cultural Healthcare Practices: no Advance Directives: No Advance Directives Information Provided: Yes Do you have thoughts of harming others: None Do you have a plan to hurt others: No Plan Recently lost weight without trying: Unsure How much weight loss: Unsure Eating poorly because of decreased appetite: No Nutrition screen score: 4 Nutrition Risks: No Nutritional Risk Poor oral hygiene: No service: No Narrative Narrative: This communications writer met with patient at bedside along with recovery support team RN. . A review of controlled scripts shows suboxone 16mg-4mgSL daily, with last prescription fill at [facility] on 02/01/21, for 56 films of 8mg- 2mg. He reports that he is experiencing precipitated withdrawals, and c/o generalized body aches and malaise. Patient visibly diaphoretic, restless legs, N&V, yawning, runny nose and eyes. However, patient also diagnosed with diverticulitis along with micro perforation. He does report that he was a client at [facility] methadone clinic for some time, at first their clinic in [place], and then later at their clinic in [place]. He was unsure of the last time he was a client there. He reports that most recently he has been receiving suboxone therapy, and is a current client at [facility]. He does report that he has been using heroin on a daily basis, one bag daily, via inhalation / snorting. From chart review and discussion with patient's nurse on unit, it appears he had a positive opioid tox screen last evening around midnight. He was given suboxone this morning at 0900, and reports that he began feeling symptoms shortly after. The suboxone has since been discontinued, and he now has an order for dilaudid I V every 2 hours as needed.
[2021-02-13] MEDS: cefTRIAXone sodium 1 GM in 0.9 % Sodium Chloride 50 ML IV (17:18)
--- NOTE | 2021-02-13 17:27 | P.CNGI_ITS ---
History of Present Illness Data of Consult Service Date: 02/13/21 Requesting physician: Alok Sveerino Primary Care Provider: [facility] HPI Reason for consult: acute diverticulitis 60-year-old male seen at [facility] ED on 02/12/2021 with fatigue, headaches, body aches, nausea and vomiting: HPI narrative: 60-year-old male with history of coronary artery disease currently on Plavix, congestive heart failure, grade 2 diastolic dysfunction with an ejection fraction of 55-60% obtained September 2019, hypertension, hyperlipidemia, diabetes, obesity, asthma, obstructive sleep apnea who is a daily smoker presenting to the ED with complaints of 1 day of intermittent headaches, body aches, malaise, fatigue, nausea/vomiting, dry cough, shortness of breath, orthopnea and dyspnea on exertion. Reports that he was not vaccinated with COVID vaccine. Denies recent travel or sick contacts. Denies any measured fevers, dizziness, changes in vision, neck pain/stiffness, chest pain, palpitations, abdominal pain, back pain, dysuria, hematuria, calf tenderness or any other symptoms complaints or concerns at this time. On arrival to the ED patient's vital significant for temp of 98?, heart rate of 63, respiratory rate of 18, blood pressure of 96/54, she and to satting 99% on 2 L of oxygen. O2 did drop on 2 L 80% of patient's O2 requirement increased to 5 L. WBC count of 10.7, hemoglobin of 9.8 that dropped from 12.5 on 02/13, 14.2, INR of 1.2, sodium of 142, BUN of 61, creatinine of 3.19, AST of 54, ALT of 47, troponin of 4.5, BNP of 93, UA negative, extensive viral panel pending but negative for COVID, stool occult blood positive. Patient was admitted with severe sepsis due to acute diverticulitis with micro perforation and pneumonia complicated by gram-positive bacteremia and acute hypoxic respiratory failure He was started on IV ceftriaxone, Flagyl, vancomycin. PAST EGD/COLONOSCOPY: Patient had colonoscopy at [facility] a few years ago (?2014 or 2015) - report is not available at the time of this dictation IMAGING STUDIES: ABDOMINAL CT SCAN SHOWED: GASTROINTESTINAL TRACT: There is small area of focal edema the junction of the descending and sigmoid colon bowel wall thickening and edema in the pericolonic fat. There is a small collection of extraluminal gas in the mesentery in this area. There are a few diverticula in this region of the colon. Findings consistent with a diverticulitis with localized perforation. No abscess however. No bowel obstruction. Small volume of stool in the colon. The sigmoid colon is redundant looping well to the right side of the abdomen but there is no mesenteric twist. The appendix is normal. The small bowel loops are unremarkable. Is a small hiatal hernia. Review of Systems Constitutional: Constitutional: Reports fatigue, Denies fever(s), Reports headache(s) and Denies weight loss Eyes: Eyes: Denies eye discharge and Denies irritation ENT: Reports Normal hearing present, Denies dysphagia, Denies dizziness and Reports headache(s) Cardiovascular: Cardiovascular: Denies chest pain, Reports pedal edema, Denies leg edema, Reports dyspnea and Reports dyspnea on exertion Respiratory: Respiratory: Reports cough, Reports dyspnea, Reports dyspnea on exertion and Denies wheezing Gastrointestinal: Gastrointestinal: Denies abdominal pain, Denies change in bowel habits, Denies dysphagia, Denies heartburn, Reports nausea and Reports v omiting Genitourinary: Genitourinary: Denies dysuria Musculoskeletal: Musculoskeletal: Denies back pain and Denies arthralgias Integumentary/Breasts: Skin/Breast: Denies pruritus, Denies rash and Denies jaundice Neurologic: Reports Normal hearing present, Denies Abnormal speech present, Denies dizziness, Reports headache(s) and Denies seizure-like activity Psychiatric: Psychiatric: Denies anxiety, Denies depression and Denies panic attacks Endocrine: Endocrine: Denies cold intolerance, Reports fatigue, Denies flushing and Denies heat intolerance Hematologic/Lymphatic: Hematologic/Lymphatic: Denies easy bleeding and Denies easy bruising Allergic/Immunologic: Allergic/Immunologic: Denies wheezing PMFSH Past Medical History Medical History Asthma Congestive heart failure COPD (chronic obstructive pulmonary disease) Coronary artery disease Diabetes Hypertension Obesity Obstructive sleep apnea Family History Family History Father No problems noted. Mother No problems noted. Surgical History Surgical History H/O hernia repair Hx of colonoscopy Social History Social History Household Members: None Housing: House Do you presently have visiting nurse or other home services: No Alcohol intake: never Patient Tobacco Use Status: Current everyday Tobacco user Use of substances other than those prescribed or required for medical reasons: No Currently Displaying Signs/Symptoms of Drug Intoxication Withdrawal: No Spiritual Healthcare Practices: no Worship Healthcare Practices: no Cultural Healthcare Practices: no Advance Directives: No Advance Directives Information Provided: Yes Do you have thoughts of harming others: None Do you have a plan to hurt others: No Plan Recently lost weight without trying: Unsure How much weight loss: Unsure Eating poorly because of decreased appetite: No Nutrition screen score: 4 Nutrition Risks: No Nutritional Risk Poor oral hygiene: No service: No Meds Allergies Allergy/AdvReac Type Severity Reaction Status Date / Time crab [CRAB] Allergy Unknown ANAPHYLAXIS Verified 02/13/21 06:35 lisinopril [LISINOPRIL] Allergy Unknown cough Verified 02/13/21 06:35 Penicillins [PCN] Allergy Unknown RASH Verified 02/13/21 06:35 Sulfa (Sulfonamide Allergy Unknown RASH Verified 02/13/21 06:35 Antibiotics) [SULFA (SULFONAMIDE ANTIBIOTICS)] Active Medications: Current Medications Generic Name Dose Route Start Last Admin Trade Name Freq PRN Reason Stop Dose Admin Acetaminophen 650 mg 02/12/21 23:34 Acetaminophen 325 Mg Tablet PO Q6H PRN Pain, Mild (Pain Scale 1-3) Albuterol/Ipratropium 3 ml 02/12/21 23:34 Albuterol/Iprat 2.5/0.5mg 3 Ml Ampul.Neb INHALE RQ4H PRN Shortness of Breath/Wheezing Amlodipine Besylate 10 mg 02/12/21 23:34 02/13/21 00:36 Amlodipine Besylate 10 Mg Tablet PO 10 mg BEDTIME ELVIE Administration Protocol Atorvastatin Calcium 80 mg 02/12/21 23:34 02/13/21 02:21 Atorvastatin Calcium 80 Mg Tablet PO Not Given BEDTIME ELVIE Bupropion HCl 300 mg 02/13/21 09:00 02/13/21 08:24 Bupropion Hcl Xl 300 Mg Tab.Er.24h PO 300 mg DAILY ELVIE Administration Carvedilol 25 mg 02/12/21 23:34 02/13/21 08:23 Carvedilol 25 Mg Tablet PO 25 mg BIDWM ELVIE Administration Protocol Docusate Sodium 100 mg 02/12/21 23:34 Docusate Sodium 100 Mg Capsule PO DAILY PRN Constipation Fluticasone Propionate 2 spray 02/13/21 09:00 02/13/21 13:01 Fluticasone Propionate Nasal 16 Gm [place] NOSTRIL-B 2 spray DAILY ELVIE Administration Fluticasone/Vilanterol 1 puff 02/13/21 08:00 02/13/21 07:59 Fluticasone/Vilanterol 100/25 Blst.W.Dev INHALE 1 puff RDAILY ELVIE Administration Heparin Sodium (Porcine) 5,000 unit 02/13/21 14:00 02/13/21 14:18 Heparin Sodium,Porcine 5,000 Unit/Ml Vial SUBCUT 5,000 unit Q8H ELVIE Administration Hydromorphone HCl 1 mg 02/13/21 13:49 02/13/21 16:38 Hydromorphone Hcl 0.5 Mg/0.5 Ml Syringe IVPUSH 1 mg Q2H PRN Administration withdrawl Metronidazole 500 mg in 100 mls @ 100 mls/hr 02/12/21 22:30 02/13/21 16:00 Flagyl IV Infused Q8H ELVIE Infusion Ceftriaxone Sodium 1 gm/ 50 mls @ 100 mls/hr 02/13/21 18:00 02/13/21 17:18 Sodium Chloride IV 100 mls/hr Q24H ELVIE Administration Vancomycin HCl 750 mg/ Sodium 265 mls @ 265 mls/hr 02/14/21 07:00 Chloride IV Q24H ELVIE Dextrose/Sodium Chloride 1,000 mls @ 80 mls/hr 02/13/21 14:00 02/13/21 14:33 D51/2ns IVCONT 80 mls/hr .[id number] ELVIE Administration Insulin Human Lispro 0 unit 02/13/21 11:30 02/13/21 17:07 Insulin Lispro 100 Unit/Ml 3 Ml Vial SUBCUT 4 unit QIDACHS [facility] Administration Protocol Ondansetron HCl 4 mg 02/12/21 23:34 02/13/21 16:56 Ondansetron Hcl 4 Mg/2 Ml Vial IVPUSH 4 mg Q8H PRN Administration Nausea and Vomiting Pharmacy Consult 1 each 02/12/21 15:31 Consult Rx Perform Med Rec MISCELLANE ONCE PRN Consult order Pharmacy Consult 1 each 02/13/21 05:48 Consult Rx Vancomycin Dosing MISCELLANE DAILY PRN Consult order Sodium Chloride 3 ml 02/13/21 00:00 02/13/21 17:08 0.9 % Sodium Chloride Flush 3 Ml Syringe IVFLUSH 3 ml QSHIFT ELVIE Administration Tiotropium [place] 1 puff 02/13/21 08:00 02/13/21 07:58 Tiotropium [place] 18 Mcg Cap.W.Dev INHALE 1 puff RDAILY ELVIE Administration Vitamin D 25 mcg 02/13/21 09:00 02/13/21 08:24 Cholecalciferol (Vitamin D3) 25 Mcg Tablet PO 25 mcg DAILY ELVIE Administration Home Medications Medication Instructions Recorded Confirmed Last Taken Type albuterol sulfate [ProAir HFA] 2 puff INHALATION Q4H PRN 02/12/21 02/12/21 Unknown History amlodipine 10 mg PO QPM 02/12/21 02/12/21 Unknown History buprenorphine-naloxone [Suboxone] 2 strip SUBLINGUAL DAILY 02/12/21 02/12/21 Unknown History bupropion HCl 150 mg PO BID 02/12/21 02/12/21 Unknown History calcium carbonate-vitamin D3 1 tab PO BID 02/12/21 02/12/21 Unknown History [[place] Calcium-Vit D3] carvedilol 25 mg PO BID 02/12/21 02/12/21 Unknown History cholecalciferol (vitamin D3) 1,000 unit PO DAILY 02/12/21 02/12/21 Unknown History clopidogrel 75 mg PO DAILY 02/12/21 02/12/21 Unknown History fluticasone propion-salmeterol 1 puff INHALATION BID 02/12/21 02/12/21 Unknown History [Advair Diskus] fluticasone propionate 2 spray INTRANASAL DAILY 02/12/21 02/12/21 Unknown History furosemide 40 mg PO DAILY 02/12/21 02/12/21 Unknown History hydralazine 100 tab PO TID 02/12/21 02/12/21 Unknown History isosorbide mononitrate 60 mg PO DAILY 02/12/21 02/12/21 Unknown History losartan 100 mg PO DAILY 02/12/21 02/12/21 Unknown History metformin 500 mg PO BID 02/12/21 02/12/21 Unknown History nicotine (polacrilex) 1 ea PO Q2H PRN 02/12/21 02/12/21 Unknown History omeprazole 20 mg PO DAILY 02/12/21 02/12/21 Unknown History rosuvastatin 40 mg PO BEDTIME 02/12/21 02/12/21 Unknown History spironolactone 25 mg PO BID 02/12/21 02/12/21 Unknown History tiotropium bromide [Spiriva with 1 cap INHALATION DAILY 02/12/21 02/12/21 Unknown History HandiHaler] Physical Exam Vital Signs: Vital Signs: Last Vital Signs Temp 98.8 F 02/13/21 15:37 Pulse 88 02/13/21 15:37 Resp 20 02/13/21 15:37 BP 146/84 H 02/13/21 15:37 Pulse Ox 95 02/13/21 15:37 Body Mass Index 49.8 Const: General: ill appearing Nutritional Appearance: obese Orientation/consciousness: patient oriented x3 Limitations: no limitations HENMT: Head: Yes normal to inspection Ears: hearing grossly normal bilaterally Mouth: Normal oral and palatal mucosa present Eyes: Sclerae: sclerae normal Pupils: Equal, round and reactive pupils present Neck: Neck: Yes normal visual inspection Chest: Chest palpation & inspection: normal inspection of the chest Resp: Effort & Inspection: normal respiratory effort Auscultation: clear to auscultation bilaterally Cardio: Palpation: normal PMI Rate: regular rate Rhythm: regular rhythm Heart sounds: S1 normal heart sound present, S2 normal heart sound present and no murmurs GI: Palpation (GI): Soft to palpation, nontender and No hepatosplenomegaly present Auscultation: normal bowel sounds Rectal Exam - Male: Yes deferred Skin: General skin exam: no rashes or lesions noted Neuro: General: patient oriented x3, gait normal and moves all extremities Cranial nerves: Yes Equal, round and reactive pupils present and Yes Normal hearing present Speech: No Abnormal speech present Results Labs CBC & Chem 7: 02/13/21 06:33 02/13/21 06:33 Labs: Short CBC 02/13/21 Range/Units 06:33 WBC 14.5 H (4.8-10.8) X10*3/uL Hgb 9.1 L (14.0-18.0) g/dl Hct 28.9 L (42-52) % Plt Count 182 (160-400) X10*3/uL BMP 02/12/21 02/13/21 22:41 06:33 Sodium 141 142 Potassium 4.2 3.5 Chloride 98 102 Carbon Dioxide 26 26 BUN 59 H 61 H Creatinine 2.76 H 2.71 H Calcium 8.7 8.2 L Microbiology Microbiology Results: Microbiology 02/12/21 15:57 Blood - Venous Blood Culture - Preliminary 02/12/21 15:57 Blood - Venous Blood Culture - Preliminary Assessment and Plan (1) Sepsis: Status: Acute (2) Diverticulitis: Status: Acute (3) COPD (chronic obstructive pulmonary disease): Status: Acute 60-year-old male with a history of coronary artery disease currently on Plavix, congestive heart failure, grade 2 diastolic dysfunction with an ejection fraction of 55-60% obtained September 2019, hypertension, hyperlipidemia, diabetes, obesity, asthma, obstructive sleep apnea who is a daily smoker admitted with sepsis due to acute diverticulitis with microperforation. RECOMMENDATIONS: 1. Continue IV antibiotics 2. Pt to be referred to the GI clinic to discuss scheduling a colonoscopy in 6 to 8 weeks once diverticulitis has resolved Procedures Date of Service Date of Service: 02/13/21
[2021-02-13 20:26] LABS: Glucose, Whole Blood 216 mg/dL (60-115)
[2021-02-14] VITALS (9 sets, daily range): BP systolic 123–153; BP diastolic 61–77; PULSE 64–77; RESP 18–20; TEMP 36.4–36.9; O2SAT 92–98; BMI 49.3
[2021-02-14] MEDS: Dextrose 5 % and 0.45 % NaCl 1,000 ML 80 ML IVCONT ×2 (04:22→21:41)
[2021-02-14 05:59] LABS: Hematocrit 30.7 % (42-52); Hemoglobin 9.6 g/dl (14.0-18.0); Mean Corpuscular HGB Conc 31.3 g/dl (31.0-36.0); Mean Corpuscular Hemoglobin 25.9 pg (27.0-33.0); Mean Platelet Volume 11.3 fL (9.4-12.4); Platelet Count 197 X10*3/uL (160-400); Red Cell Distribution Width 13.4 % (11.0-16.0)
[2021-02-14] MEDS: Heparin Sodium,Porcine 5,000 UNIT/ML VIAL 5000 UNIT SUBCUT ×3 (06:21→21:41)
[2021-02-14] MEDS: metroNIDAZOLE/NS 500 MG/100 ML PIGGYBACK 100 MG IV ×3 (06:21→21:41)
[2021-02-14 06:24] LABS: Anion Gap 12 (12-20); Blood Urea Nitrogen 43 mg/dL (9-16); Calcium 8.4 mg/dL (8.4-10.2); Carbon Dioxide 30 mmol/L (22-29); Chloride 106 mmol/L (96-108); Estimated Glomerular Filt Rate 39; Glucose Fasting 155 mg/dL (60-99); Potassium 3.4 mmol/L (3.3-5.1); Sodium 145 mmol/L (135-145)
[2021-02-14 07:24] LABS: Glucose, Whole Blood 146 mg/dL (60-115)
[2021-02-14] MEDS: carvediloL 25 MG TABLET PO ×2 (08:05→16:43)
[2021-02-14] MEDS: Cholecalciferol (Vitamin D3) 25 MCG TABLET PO (08:05)
[2021-02-14] MEDS: vancomycin HCL 500 MG in 0.9 % Sodium Chloride 100 ML 110 MG IV ×2 (08:05→19:30)
[2021-02-14] MEDS: buPROPion HCl XL 300 MG TAB.ER.24H PO (08:05)
[2021-02-14] MEDS: 0.9 % Sodium Chloride Flush 3 ML SYRINGE IVFLUSH ×2 (08:06→16:39)
[2021-02-14] MEDS: Fluticasone Propionate Nasal 16 GM SPRAY 2 SPRAY NOSTRIL-B (08:07)
--- NOTE | 2021-02-14 08:17 | P.PNGS_ITS ---
Subjective Subjective Date of Service: 02/14/21 Interval history: Seems to be more alert today although still looks drowsy Able to answer questions better Says he has no abdominal pain States he feels well Physical Exam Vital Signs: Vital Signs: Last Vital Signs Temp 97.7 F 02/14/21 07:20 Pulse 77 02/14/21 08:05 Resp 20 02/14/21 07:20 BP 123/68 02/14/21 08:05 Pulse Ox 98 02/14/21 07:20 Body Mass Index 49.3 Laboratory Results - last 24 hr 02/13/21 02/13/21 02/13/21 06:33 11:19 11:43 WBC RBC Hgb Hct MCV MCH MCHC RDW Plt Count MPV Absolute Nucleated RBC Nucleated RBC % (a uto) Neutrophils % (Man ual) 88 H Band Neutrophils % 6 H Lymphocytes % (Man ual) 1 L Monocytes % (Manua l) 5 Abs Neuts (Manual) 13.6 H Lymphocytes # (Man ual) 0.1 L Monocytes # (Manua l) 0.7 Platelet Estimate NORMAL Plt Morphology Com ment NORMAL RBC Morphology NOTED Microcytosis 1+ (5-14) Ovalocytes 1+ (5-14) Acanthocytes (Spur ) 1+ (0-2) O2 Saturation 93.0 ABG pH at Pt Temp 7.58 H ABG pH (Temp Corre ct) 7.59 H ABG pCO2 at Pt Tem p 26 L ABG pCO2 (Temp Cor rct 25 L ABG pO2 at Pt Temp 68 L ABG pO2 (Temp Nic ect 64 L ABG HCO3 24 ABG Base Excess (A ctual) 3.8 Sodium Potassium Chloride Carbon Dioxide Anion Gap BUN Creatinine Estim Creat Clear Calc Estimated GFR POC Glucose 249 H Fasting Glucose Calcium B-Natriuretic Pept avinash 02/13/21 02/13/21 02/13/21 12:53 15:52 20:19 WBC RBC Hgb Hct MCV MCH MCHC RDW Plt Count MPV Absolute Nucleated RBC Nucleated RBC % (a uto) Neutrophils % (Man ual) Band Neutrophils % Lymphocytes % (Man ual) Monocytes % (Manua l) Abs Neuts (Manual) Lymphocytes # (Man ual) Monocytes # (Manua l) Platelet Estimate Plt Morphology Com ment RBC Morphology Microcytosis Ovalocytes Acanthocytes (Spur ) O2 Saturation ABG pH at Pt Temp ABG pH (Temp Corre ct) ABG pCO2 at Pt Tem p ABG pCO2 (Temp Cor rct ABG pO2 at Pt Temp ABG pO2 (Temp Nic ect ABG HCO3 ABG Base Excess (A ctual) Sodium Potassium Chloride Carbon Dioxide Anion Gap BUN Creatinine Estim Creat Clear Calc Estimated GFR POC Glucose 201 H 216 H Fasting Glucose Calcium B-Natriuretic Pept avinash 194 H 02/14/21 02/14/21 02/14/21 05:21 05:21 07:20 WBC 10.0 RBC 3.70 L Hgb 9.6 L Hct 30.7 L MCV 83.0 MCH 25.9 L MCHC 31.3 RDW 13.4 Plt Count 197 MPV 11.3 Absolute Nucleated RBC 0.000 Nucleated RBC % (a uto) 0.0 Neutrophils % (Man ual) Band Neutrophils % Lymphocytes % (Man ual) Monocytes % (Manua l) Abs Neuts (Manual) Lymphocytes # (Man ual) Monocytes # (Manua l) Platelet Estimate Plt Morphology Com ment RBC Morphology Microcytosis Ovalocytes Acanthocytes (Spur ) O2 Saturation ABG pH at Pt Temp ABG pH (Temp Corre ct) ABG pCO2 at Pt Tem p ABG pCO2 (Temp Cor rct ABG pO2 at Pt Temp ABG pO2 (Temp Nic ect ABG HCO3 ABG Base Excess (A ctual) Sodium 145 Potassium 3.4 Chloride 106 Carbon Dioxide 30 H Anion Gap 12 BUN 43 H Creatinine 1.78 H Estim Creat Clear Calc 57.0 Estimated GFR 39 POC Glucose 146 H Fasting Glucose 155 H Calcium 8.4 B-Natriuretic Pept avinash Const: General: comfortable and no acute distress Resp: Effort & Inspection: normal respiratory effort Cardio: Rhythm: regular rhythm GI: Other: Very minimal tenderness on deep palpation the lower abdomen Palpation (GI): Soft to palpation, not firm, no guarding and not rigid Progress Note: A&P Assessment and plan (1) Diverticulitis: Status: Acute Assessment and Plan: Has localized perforation I have reviewed his CAT scan Exam remains benign He looks comfortable Minimal tenderness White count normal Does not appear toxic Keep on clear liquids only IV antibiotics Will follow closely Fall Risk Details Current Medications: Current Medications Generic Name Dose Route Start Last Admin Trade Name Freq PRN Reason Stop Dose Admin Acetaminophen 650 mg 02/12/21 23:34 Acetaminophen 325 Mg Tablet PO Q6H PRN Pain, Mild (Pain Scale 1-3) Albuterol/Ipratropium 3 ml 02/12/21 23:34 Albuterol/Iprat 2.5/0.5mg 3 Ml Ampul.Neb INHALE RQ4H PRN Shortness of Breath/Wheezing Amlodipine Besylate 10 mg 02/12/21 23:34 02/13/21 20:57 Amlodipine Besylate 10 Mg Tablet PO Not Given BEDTIME ELVIE Protocol Atorvastatin Calcium 80 mg 02/12/21 23:34 02/13/21 20:57 Atorvastatin Calcium 80 Mg Tablet PO Not Given BEDTIME ELVIE Bupropion HCl 300 mg 02/13/21 09:00 02/14/21 08:05 Bupropion Hcl Xl 300 Mg Tab.Er.24h PO 300 mg DAILY ELVIE Administration Carvedilol 25 mg 02/12/21 23:34 02/14/21 08:05 Carvedilol 25 Mg Tablet PO 25 mg BIDWM ELVIE Administration Protocol Docusate Sodium 100 mg 02/12/21 23:34 Docusate Sodium 100 Mg Capsule PO DAILY PRN Constipation Fluticasone Propionate 2 spray 02/13/21 09:00 02/14/21 08:07 Fluticasone Propionate Nasal 16 Gm [place] NOSTRIL-B 2 spray DAILY ELVIE Administration Fluticasone/Vilanterol 1 puff 02/13/21 08:00 02/13/21 07:59 Fluticasone/Vilanterol 100/25 Blst.W.Dev INHALE 1 puff RDAILY ELVIE Administration Heparin Sodium (Porcine) 5,000 unit 02/13/21 14:00 02/14/21 06:21 Heparin Sodium,Porcine 5,000 Unit/Ml Vial SUBCUT 5,000 unit Q8H ELVIE Administration Hydromorphone HCl 1 mg 02/13/21 13:49 02/13/21 20:47 Hydromorphone Hcl 0.5 Mg/0.5 Ml Syringe IVPUSH 1 mg Q2H PRN Administration withdrawl Metronidazole 500 mg in 100 mls @ 100 mls/hr 02/12/21 22:30 02/14/21 08:07 Flagyl IV Infused Q8H ELVIE Infusion Ceftriaxone Sodium 1 gm/ 50 mls @ 100 mls/hr 02/13/21 18:00 02/13/21 18:17 Sodium Chloride IV Infused Q24H ELVIE Infusion Dextrose/Sodium Chloride 1,000 mls @ 80 mls/hr 02/13/21 14:00 02/14/21 04:22 D51/2ns IVCONT 80 mls/hr .[id number] ELVIE Administration Vancomycin HCl 500 mg/ Sodium 110 mls @ 110 mls/hr 02/14/21 07:00 02/14/21 08:05 Chloride IV 110 mls/hr Q12H ELVIE Administration Insulin Human Lispro 0 unit 02/13/21 11:30 02/14/21 08:05 Insulin Lispro 100 Unit/Ml 3 Ml Vial SUBCUT Not Given QIDACHS [facility] Protocol Ondansetron HCl 4 mg 02/12/21 23:34 02/13/21 16:56 Ondansetron Hcl 4 Mg/2 Ml Vial IVPUSH 4 mg Q8H PRN Administration Nausea and Vomiting Pharmacy Consult 1 each 02/12/21 15:31 Consult Rx Perform Med Rec MISCELLANE ONCE PRN Consult order Pharmacy Consult 1 each 02/13/21 05:48 Consult Rx Vancomycin Dosing MISCELLANE DAILY PRN Consult order Sodium Chloride 3 ml 02/13/21 00:00 02/14/21 08:06 0.9 % Sodium Chloride Flush 3 Ml Syringe IVFLUSH 3 ml QSHIFT ELVIE Administration Tiotropium [place] 1 puff 02/13/21 08:00 02/13/21 07:58 Tiotropium [place] 18 Mcg Cap.W.Dev INHALE 1 puff RDAILY ELVIE Administration Vitamin D 25 mcg 02/13/21 09:00 02/14/21 08:05 Cholecalciferol (Vitamin D3) 25 Mcg Tablet PO 25 mcg DAILY ELVIE Administration Time Spent With Patient Time: Total time spent is greater than 50% in coordination of care (as documented) at patient's floor/unit and/or counseling patient: Time with patient: 15 - 24 minutes Progress Note: Quality Stroke Does the patient have a stroke diagnosis?: No VTE Prior VTE?: No VTE Risk Level:: Medical - moderate - high VTE Device Contraindication: N/A - Device Ordered VTE Drug Contraindication: N/A - Med Ordered Procedures Date of Service Date of Service: 02/14/21
--- NOTE | 2021-02-14 09:00 | MHC.RECOVRN ---
T/w briefly met with pt to f/u after experiencing precipitated withdrawal yesterday. Pt appears comfortable in recliner, is more alert and asking for cold water. Pt reports feeling better. Case discussed with Sasha Avendano APRN, as well as pts nurse. T/w available as needed.
[2021-02-14] MEDS: Fluticasone/Vilanterol 100/25 BLST.W.DEV 1 PUFF INHALE (09:09)
--- NOTE | 2021-02-14 10:10 | PM.PNNEP ---
Subjective Subjective Date of Service: 02/14/21 Interval history: Events noted Sleepy and arousible Cr trending down Physical Exam Vital Signs: Vital Signs: Last Vital Signs Temp 97.7 F 02/14/21 07:20 Pulse 77 02/14/21 08:05 Resp 20 02/14/21 07:20 BP 123/68 02/14/21 08:05 Pulse Ox 98 02/14/21 07:20 Body Mass Index 49.3 Const: General: ill appearing Neck: Neck: Yes supple Resp: Auscultation: rhonchi Cardio: Heart sounds: no gallops and no murmurs GI: Palpation (GI): Soft to palpation Auscultation: normal bowel sounds Neuro: Motor exam (neuro): no asterixis Objective Data Labs CBC & Chem 7: 02/14/21 05:21 02/14/21 05:21 Labs: Laboratory Results - last 24 hr 02/13/21 02/13/21 02/13/21 11:19 11:43 12:53 WBC RBC Hgb Hct MCV MCH MCHC RDW Plt Count MPV Absolute Nucleated RBC Nucleated RBC % (auto) O2 Saturation 93.0 ABG pH at Pt Temp 7.58 H ABG pH (Temp Correct) 7.59 H ABG pCO2 at Pt Temp 26 L ABG pCO2 (Temp Corrct 25 L ABG pO2 at Pt Temp 68 L ABG pO2 (Temp Correct 64 L ABG HCO3 24 ABG Base Excess (Actual) 3.8 Sodium Potassium Chloride Carbon Dioxide Anion Gap BUN Creatinine Estim Creat Clear Calc Estimated GFR POC Glucose 249 H Fasting Glucose Calcium B-Natriuretic Peptide 194 H 02/13/21 02/13/21 02/14/21 15:52 20:19 05:21 WBC 10.0 RBC 3.70 L Hgb 9.6 L Hct 30.7 L MCV 83.0 MCH 25.9 L MCHC 31.3 RDW 13.4 Plt Count 197 MPV 11.3 Absolute Nucleated RBC 0.000 Nucleated RBC % (auto) 0.0 O2 Saturation ABG pH at Pt Temp ABG pH (Temp Correct) ABG pCO2 at Pt Temp ABG pCO2 (Temp Corrct ABG pO2 at Pt Temp ABG pO2 (Temp Correct ABG HCO3 ABG Base Excess (Actual) Sodium Potassium Chloride Carbon Dioxide Anion Gap BUN Creatinine Estim Creat Clear Calc Estimated GFR POC Glucose 201 H 216 H Fasting Glucose Calcium B-Natriuretic Peptide 02/14/21 02/14/21 05:21 07:20 WBC RBC Hgb Hct MCV MCH MCHC RDW Plt Count MPV Absolute Nucleated RBC Nucleated RBC % (auto) O2 Saturation ABG pH at Pt Temp ABG pH (Temp Correct) ABG pCO2 at Pt Temp ABG pCO2 (Temp Corrct ABG pO2 at Pt Temp ABG pO2 (Temp Correct ABG HCO3 ABG Base Excess (Actual) Sodium 145 Potassium 3.4 Chloride 106 Carbon Dioxide 30 H Anion Gap 12 BUN 43 H Creatinine 1.78 H Estim Creat Clear Calc 57.0 Estimated GFR 39 POC Glucose 146 H Fasting Glucose 155 H Calcium 8.4 B-Natriuretic Peptide Microbiology Microbiology Results: Microbiology 02/13/21 06:33 Blood - Venous Blood Culture - Preliminary No growth after 24 hours. 02/13/21 06:33 Blood - Venous Blood Culture - Preliminary No growth after 24 hours. 02/12/21 15:57 Blood - Venous Blood Culture - Preliminary Streptococcus species 02/12/21 15:57 Blood - Venous Blood Culture - Preliminary Streptococcus species Assessment & Plan Assessment and plan (1) Acute renal failure: Status: Acute Assessment and Plan: MELISSA superimposed on CKD MELISSA due to hypoperfusion Cr improving with hydration No obstruction be imaging Urine without significant blood/RBC Suggest: Keep I > O Avoid hypotension Avoid nephrotoxins Watch Cr and Vanco level closely while on Vanco Time Spent With Patient Time: Total time spent is greater than 50% in coordination of care (as documented) at patient's floor/unit and/or counseling patient: Procedures Date of Service Date of Service: 02/14/21
--- NOTE | 2021-02-14 10:46 | PM.EVENT ---
Event Note Date of Service: 02/14/21 Event Note: Addiction follow up: Patient seen in follow up following precipitated withdrawal. Last dose of Dilaudid given at 2044 on 02/13. Patient seen this morning. In recliner, minimal engagement with this functional tester typewriters. Appearing somewhat sedated. Denies any withdrawal sx. C/O pain in left hand as his IV was infiltrated and awaiting removal. Plan: -Dilaudid d/c -Monitor for withdrawal (use the COW scale) -Can resume suboxone when patient requests -re consult if necessary
[2021-02-14 11:49] LABS: Glucose, Whole Blood 213 mg/dL (60-115)
[2021-02-14] MEDS: Insulin Lispro 100 UNIT/ML 3 ML VIAL SUBCUT ×2 (12:19→21:51)
--- NOTE | 2021-02-14 14:59 | MHC.CM.PN ---
Male 60 DX MELISSA, CAP, HF He lives alone. Uses an AD. May need PT eval to determine discharge. CM will follow.
[2021-02-14 16:19] LABS: Glucose, Whole Blood 133 mg/dL (60-115)
--- NOTE | 2021-02-14 17:02 | HO.PM.IMPN ---
Subjective Subjective Date of Service: 02/14/21 Interval History: The patient was seen and evaluated this morning Laying in bed, feels than yesterday as withdrawal symptoms resolved Mildly sedated and falls asleep time and then Denies any fever, chills or shortness of breath No reported other overnight events. Systemic review: No fever, chills to a but has generalized weakness No chest pain, palpitation No shortness of breath or coughing Abdominal pain significantly improved No urinary symptoms No any rash or wounds Physical Exam Vital Signs: Vital Signs: Last Vital Signs Temp 97.6 F 02/14/21 15:39 Pulse 64 02/14/21 15:39 Resp 20 02/14/21 15:39 BP 138/61 02/14/21 15:39 Pulse Ox 98 02/14/21 15:39 Body Mass Index 49.3 Const: Other: Constitutional : Alert with stimulation, disoriented, not in distress Neck : Normal inspection, Supple Cardiovascular : RRR, S1 S2, no lower extremity edema Respiratory : Good bilateral air entry, no crackles, wheezes or rhonchi Gastrointestinal: soft, lax, Normal bowel sounds, Non tender Skin : Warm/Dry, No rash Neurological : Alert & disoriented to, No focal deficit Objective Data Current Medications Generic Name Dose Route Start Last Admin Trade Name Freq PRN Reason Stop Dose Admin Acetaminophen 650 mg 02/12/21 23:34 Acetaminophen 325 Mg Tablet PO Q6H PRN Pain, Mild (Pain Scale 1-3) Albuterol/Ipratropium 3 ml 02/12/21 23:34 Albuterol/Iprat 2.5/0.5mg 3 Ml Ampul.Neb INHALE RQ4H PRN Shortness of Breath/Wheezing Amlodipine Besylate 10 mg 02/12/21 23:34 02/13/21 20:57 Amlodipine Besylate 10 Mg Tablet PO Not Given BEDTIME ELVIE Protocol Atorvastatin Calcium 80 mg 02/12/21 23:34 02/13/21 20:57 Atorvastatin Calcium 80 Mg Tablet PO Not Given BEDTIME ELVIE Bupropion HCl 300 mg 02/13/21 09:00 02/14/21 08:05 Bupropion Hcl Xl 300 Mg Tab.Er.24h PO 300 mg DAILY ELVIE Administration Carvedilol 25 mg 02/12/21 23:34 02/14/21 16:43 Carvedilol 25 Mg Tablet PO 25 mg BIDWM ELVIE Administration Protocol Docusate Sodium 100 mg 02/12/21 23:34 Docusate Sodium 100 Mg Capsule PO DAILY PRN Constipation Fluticasone Propionate 2 spray 02/13/21 09:00 02/14/21 08:07 Fluticasone Propionate Nasal 16 Gm [place] NOSTRIL-B 2 spray DAILY ELVIE Administration Fluticasone/Vilanterol 1 puff 02/13/21 08:00 02/14/21 09:09 Fluticasone/Vilanterol 100/25 Blst.W.Dev INHALE 1 puff RDAILY ELVIE Administration Heparin Sodium (Porcine) 5,000 unit 02/13/21 14:00 02/14/21 14:25 Heparin Sodium,Porcine 5,000 Unit/Ml Vial SUBCUT 5,000 unit Q8H ELVIE Administration Metronidazole 500 mg in 100 mls @ 100 mls/hr 02/12/21 22:30 02/14/21 15:45 Flagyl IV Infused Q8H ELVIE Infusion Ceftriaxone Sodium 1 gm/ 50 mls @ 100 mls/hr 02/13/21 18:00 02/13/21 18:17 Sodium Chloride IV Infused Q24H ELVIE Infusion Dextrose/Sodium Chloride 1,000 mls @ 80 mls/hr 02/13/21 14:00 02/14/21 16:41 D51/2ns IVCONT Not Given .[id number] ELVIE Vancomycin HCl 500 mg/ Sodium 110 mls @ 110 mls/hr 02/14/21 07:00 02/14/21 10:18 Chloride IV Infused Q12H [facility] Infusion Insulin Human Lispro 0 unit 02/13/21 11:30 02/14/21 16:40 Insulin Lispro 100 Unit/Ml 3 Ml Vial SUBCUT Not Given QIDACHS [facility] Protocol Ondansetron HCl 4 mg 02/12/21 23:34 02/13/21 16:56 Ondansetron Hcl 4 Mg/2 Ml Vial IVPUSH 4 mg Q8H PRN Administration Nausea and Vomiting Pharmacy Consult 1 each 02/12/21 15:31 Consult Rx Perform Med Rec MISCELLANE ONCE PRN Consult order Pharmacy Consult 1 each 02/13/21 05:48 Consult Rx Vancomycin Dosing MISCELLANE DAILY PRN Consult order Sodium Chloride 3 ml 02/13/21 00:00 02/14/21 16:39 0.9 % Sodium Chloride Flush 3 Ml Syringe IVFLUSH 3 ml QSHIFT ELVIE Administration Tiotropium [place] 1 puff 02/13/21 08:00 02/14/21 09:09 Tiotropium [place] 18 Mcg Cap.W.Dev INHALE 1 puff RDAILY ELVIE Administration Vitamin D 25 mcg 02/13/21 09:00 02/14/21 08:05 Cholecalciferol (Vitamin D3) 25 Mcg Tablet PO 25 mcg DAILY ELVIE Administration Labs CBC & Chem 7: 02/14/21 05:21 02/14/21 05:21 Labs: Laboratory Results - last 24 hr 02/13/21 02/14/21 02/14/21 20:19 05:21 05:21 WBC 10.0 RBC 3.70 L Hgb 9.6 L Hct 30.7 L MCV 83.0 MCH 25.9 L MCHC 31.3 RDW 13.4 Plt Count 197 MPV 11.3 Absolute Nucleated RBC 0.000 Nucleated RBC % (auto) 0.0 Sodium 145 Potassium 3.4 Chloride 106 Carbon Dioxide 30 H Anion Gap 12 BUN 43 H Creatinine 1.78 H Estim Creat Clear Calc 57.0 Estimated GFR 39 POC Glucose 216 H Fasting Glucose 155 H Calcium 8.4 02/14/21 02/14/21 02/14/21 07:20 11:46 16:15 WBC RBC Hgb Hct MCV MCH MCHC RDW Plt Count MPV Absolute Nucleated RBC Nucleated RBC % (auto) Sodium Potassium Chloride Carbon Dioxide Anion Gap BUN Creatinine Estim Creat Clear Calc Estimated GFR POC Glucose 146 H 213 H 133 H Fasting Glucose Calcium Microbiology Microbiology Results: Microbiology 02/13/21 06:33 Blood Culture - Preliminary Blood - Venous No growth after 24 hours. 02/13/21 06:33 Blood Culture - Preliminary Blood - Venous No growth after 24 hours. 02/12/21 15:57 Blood Culture - Preliminary Blood - Venous Streptococcus species 02/12/21 15:57 Blood Culture - Preliminary Blood - Venous Streptococcus species Quality Stroke Does the patient have a stroke diagnosis?: No VTE Prior VTE?: No VTE Risk Level:: Medical - moderate - high VTE Device Contraindication: N/A - Device Ordered VTE Drug Contraindication: N/A - Med Ordered Assessment and Plan (1) Sepsis: Status: Acute Assessment and Plan: 60M presented with back pain, found to have sepsis due to diverticulitis with microperforatoin complciated by acute hypoxic respiraotry failure from pnuemonia, MELISSA, delerium severe sepsis due to acute diverticulitis with micro perforation and pneumonia complicated continue ceftriaxone, Flagyl, vancomycin follow-up species and sensitivities Surgery input appreciated Start clear liquids Continue IV fluids acute hypoxic respiratory failure complicated by gram-positive bacteremia Continue treatment with IV antibiotics Wean oxygen down as tolerated acute delirium due to opioid dependence with withdrawal Improving Discontinue IV Dilaudid addiction team input appreciated diabetes insulin chronic diastolic CHF will keep on maintenance fluids, monitor for overload hold Lasix acute kidney injury due to sepsis IV fluids, monitor DVT prophylaxis with heparin
[2021-02-14] MEDS: Acetaminophen 325 MG TABLET 650 MG PO (17:07)
[2021-02-14] MEDS: cefTRIAXone sodium 1 GM in 0.9 % Sodium Chloride 50 ML IV (17:11)
[2021-02-14 20:23] LABS: Glucose, Whole Blood 163 mg/dL (60-115)
[2021-02-14] MEDS: amLODIPine Besylate 10 MG TABLET PO (21:40)
[2021-02-14] MEDS: Atorvastatin Calcium 80 MG TABLET PO (21:41)
--- NOTE | 2021-02-14 23:34 | CA_ITS ---
Transthoracic Echocardiogram Patient (Last, First, Middle): Christine Meier, Gender: Male Date of : 1960 Age: 60 Procedure Date: 02/14/2021 Procedure Type: Transthoracic Echocardiogram Location: [facility] [place] Height: 167.64 cm Weight: 138.35 kg BSA: 2.39 m2 Heart Rate: bpm BP: 123 / 68 mmHg Guest Service Agent: IRVIN Referring MD: Ti Hagan MD Symptoms: chf Study Quality: Technically Difficult ECG Rhythm: Sinus Conclusions: - The left ventricular systolic function is low normal. The visually estimated ejection fraction is between 50-55%. - Evidence suggests grade II (moderate) diastolic dysfunction. - The left atrium is moderately dilated. - No obvious valvular pathology seen on this study. Findings Left Ventricle Normal left ventricular cavity size. The left ventricular systolic function is low normal. The visually estimated ejection fraction is between 50-55%. The calculated ejection fraction is 51% by biplane method. E/E prime ratio is between 8 and 15 consistent with indeterminate filling pressures. Evidence suggests grade II (moderate) diastolic dysfunction. Right Ventricle Normal right ventricular cavity size and systolic function. Atria The left atrium is moderately dilated. The right atrium is mildly dilated. Aortic Valve There is a normal trileaflet aortic valve. There is no aortic valve stenosis. There is no aortic valve regurgitation. Mitral Valve The mitral valve appears normal. There is mild mitral valve regurgitation. There is no mitral valve stenosis. Pulmonic Valve The pulmonic valve was not well visualized. Tricuspid Valve Normal tricuspid valve structure. There is no tricuspid valve regurgitation. The pulmonary artery systolic pressure is normal. Great Vessels The aortic annulus, sinuses of valsalva, and asc aorta are normal in size. Venous The inferior vena cava was not well visualized. The inferior vena cava is normal in size. Pericardium/Pleural There is no evidence of pericardial effusion. Prior Study Comparison No significant change compared to prior study dated: 09/11/2019. Recommendations, Care & Conclusions No obvious valvular pathology seen on this study. Measurements M-Mode Liner Measurements Normals - Women/Men AOV Cusps: 2.40 1.5-2.6 cm/m2 2D Linear Measurements Ao Root: 3.30 2.1-3.5 cm LVOT Diam: 2.40 3.0+(-)1.3 cm 2D Systolic Function EF 4C: 44.80 >55% EF 2C: 56.70 >55% EF BiP: 51.30 >55% Mitral Valve MV Pk E: 1.33 MV PK A: 1.15 MV Decel Time: 287.00 E/A: 1.20 E'Lateral: 11.40 E'Medial: 7.62 E/E' Med: 17.50 E/E' Lat: 11.70 PHT: 84.00 MVA PHT: 2.62 Decel Castro: 4.66 Aortic Valve AoV Pk Jerry: 1.68 AoV Mn Jerry: 1.18 AoV VTI: 0.35 AoV Pk Grad: 11.00 Aov Mn Grad: 6.00 BREE Cont.VTI: 2.88 LVOT LVOT Pk Jerry: 1.04 LVOT Mn Jerry: 0.75 LVOT VTI: 0.22 LVOT Pk Grad: 4.00 LVOT Mn Grad: 3.00 LVOT Diam: 2.40 LVOT Area: 4.52 Diastolic Function MV Pk E: 1.33 MV Pk A: 1.15 E/A: 1.20 E'Medial: 7.62 E/E' Med: 17.50 E' Laterial: 11.40 E/E' Lat: 11.70 Tricuspid Valve TR Pk Jerry: 2.17 TR Pk Grad: 19.00 RA Press: 3.00 RVSP: 22.00 Great Vessels Aorta Ao Root-2D: 3.30 2.0-3.7 cm Ao Asc: 3.50 2.1-3.4 cm Pulmonary Valve PV Pk Jerry: 1.25 Peak PV Grad: 6.00 Updated in Other Vendor System with Status of Final Remy Hill MD electronically signed on 02/14/2021 1:00:35 PM with status of Final
[2021-02-15] VITALS (11 sets, daily range): BP systolic 100–137; BP diastolic 59–77; PULSE 58–98; RESP 18–20; TEMP 36.4–37.4; O2SAT 93–97; BMI 49.4
[2021-02-15] MEDS: 0.9 % Sodium Chloride Flush 3 ML SYRINGE IVFLUSH ×2 (01:43→09:17)
[2021-02-15] MEDS: Acetaminophen 325 MG TABLET 650 MG PO (04:12)
--- NOTE | 2021-02-15 05:20 | PC.NURSE ---
AWAKE/WATCHING TV. ASSISTED TO SIT ON SIDE OF BED. C/O OF MIDBACK PAIN. PT QUANTIFIES PAIN 10/10. MEDICATED WITH TYLENOL 650 MG PO FOR MIDBACK PAIN. NOE CATHETER D/C AFTER DISCUSSION WITH JUNIOR GRAPHIC DESIGNER JOYCE JACKSON. APPROXIATELY 700 ML OF KENYA URINE IN BAG. URINAL PROVIDED AT BEDSIDE.
[2021-02-15] MEDS: Heparin Sodium,Porcine 5,000 UNIT/ML VIAL 5000 UNIT SUBCUT ×3 (06:24→20:32)
[2021-02-15] MEDS: metroNIDAZOLE/NS 500 MG/100 ML PIGGYBACK 100 MG IV ×3 (06:26→21:54)
[2021-02-15 07:02] LABS: Hematocrit 34.5 % (42-52); Hemoglobin 11.1 g/dl (14.0-18.0); Mean Corpuscular HGB Conc 32.2 g/dl (31.0-36.0); Mean Corpuscular Hemoglobin 26.4 pg (27.0-33.0); Mean Corpuscular Volume 82.1 fL (80-98); Mean Platelet Volume 11.5 fL (9.4-12.4); Platelet Count 197 X10*3/uL (160-400); Red Cell Distribution Width 13.6 % (11.0-16.0); White Blood Count 11.1 X10*3/uL (4.8-10.8)
[2021-02-15 07:07] LABS: Vancomycin Trough 8.5 mcg/mL (10.0-20.0)
[2021-02-15 07:09] LABS: Anion Gap 14 (12-20); Blood Urea Nitrogen 25 mg/dL (9-16); Calcium 8.4 mg/dL (8.4-10.2); Carbon Dioxide 25 mmol/L (22-29); Chloride 104 mmol/L (96-108); Creatinine Clr Calc Pharmacy 77.6; Estimated Glomerular Filt Rate 55; Glucose Random 193 mg/dL (60-115); Potassium 3.5 mmol/L (3.3-5.1); Sodium 139 mmol/L (135-145)
[2021-02-15 07:19] LABS: Glucose, Whole Blood 199 mg/dL (60-115)
[2021-02-15 07:29] LABS: Band Neutrophils Percent 11 % (3-5); Lymphocytes Absolute Manual 0.3 X10*3/uL (0.6-4.8); Lymphocytes Percent Manual 3 % (20-40); Monocytes Absolute Manual 1.1 X10*3/uL (0.0-1.2); Monocytes Percent Manual 10 % (2-11); Neutrophils Absolute Manual 9.7 X10*3/uL (2.2-7.9); Neutrophils Percent Manual 76 % (45-73); Ovalocytes 1+ (5-14) /OIF; RBC Morphology NOTED; Schistocytes 1+ (0-2) /OIF
[2021-02-15 07:30] LABS: Acanthocytes 1+ (0-2) /OIF; Platelet Estimate NORMAL (NORMAL); Platelet Morphology Comment NORMAL
--- NOTE | 2021-02-15 08:35 | PM.PNGS ---
Subjective Subjective Date of Service: 02/15/21 Interval history: Denies abdominal pain Says he feels better Says he does not recall what happened to him on admission Physical Exam Vital Signs: Vital Signs: Last Vital Signs Temp 98 F 02/15/21 07:07 Pulse 75 02/15/21 07:07 Resp 20 02/15/21 07:07 BP 110/59 L 02/15/21 07:07 Pulse Ox 95 02/15/21 07:07 Body Mass Index 49.4 Laboratory Results - last 24 hr 02/14/21 02/14/21 02/14/21 11:46 16:15 20:14 WBC RBC Hgb Hct MCV MCH MCHC RDW Plt Count MPV Immature Gran % (A uto) Neut % (Auto) Lymph % (Auto) [place] % (Auto) Eos % (Auto) Baso % (Auto) Lymph # (Auto) [place] # (Auto) Eos # (Auto) Baso # (Auto) Abs Immat Gran (au to) Absolute Neuts (au to) Absolute Nucleated RBC Nucleated RBC % (a uto) Neutrophils % (Man ual) Band Neutrophils % Lymphocytes % (Man ual) Monocytes % (Manua l) Abs Neuts (Manual) Lymphocytes # (Man ual) Monocytes # (Manua l) Platelet Estimate Plt Morphology Com ment RBC Morphology Ovalocytes Acanthocytes (Spur ) Schistocytes Sodium Potassium Chloride Carbon Dioxide Anion Gap BUN Creatinine Estim Creat Clear Calc Estimated GFR POC Glucose 213 H 133 H 163 H Random Glucose Calcium Vancomycin Trough 02/15/21 02/15/21 02/15/21 05:28 05:28 05:28 WBC 11.1 H RBC 4.20 L Hgb 11.1 L Hct 34.5 L MCV 82.1 MCH 26.4 L MCHC 32.2 RDW 13.6 Plt Count 197 MPV 11.5 Immature Gran % (A uto) Cancelled Neut % (Auto) Cancelled Lymph % (Auto) Cancelled [place] % (Auto) Cancelled Eos % (Auto) Cancelled Baso % (Auto) Cancelled Lymph # (Auto) Cancelled [place] # (Auto) Cancelled Eos # (Auto) Cancelled Baso # (Auto) Cancelled Abs Immat Gran (au to) Cancelled Absolute Neuts (au to) Cancelled Absolute Nucleated RBC 0.000 Nucleated RBC % (a uto) 0.0 Neutrophils % (Man ual) 76 H Band Neutrophils % 11 H Lymphocytes % (Man ual) 3 L Monocytes % (Manua l) 10 Abs Neuts (Manual) 9.7 H Lymphocytes # (Man ual) 0.3 L Monocytes # (Manua l) 1.1 Platelet Estimate NORMAL Plt Morphology Com ment NORMAL RBC Morphology NOTED Ovalocytes 1+ (5-14) Acanthocytes (Spur ) 1+ (0-2) Schistocytes 1+ (0-2) Sodium 139 Potassium 3.5 Chloride 104 Carbon Dioxide 25 Anion Gap 14 BUN 25 H Creatinine 1.31 Estim Creat Clear Calc 77.6 Estimated GFR 55 POC Glucose Random Glucose 193 H Calcium 8.4 Vancomycin Trough 8.5 L 02/15/21 07:10 WBC RBC Hgb Hct MCV MCH MCHC RDW Plt Count MPV Immature Gran % (A uto) Neut % (Auto) Lymph % (Auto) [place] % (Auto) Eos % (Auto) Baso % (Auto) Lymph # (Auto) [place] # (Auto) Eos # (Auto) Baso # (Auto) Abs Immat Gran (au to) Absolute Neuts (au to) Absolute Nucleated RBC Nucleated RBC % (a uto) Neutrophils % (Man ual) Band Neutrophils % Lymphocytes % (Man ual) Monocytes % (Manua l) Abs Neuts (Manual) Lymphocytes # (Man ual) Monocytes # (Manua l) Platelet Estimate Plt Morphology Com ment RBC Morphology Ovalocytes Acanthocytes (Spur ) Schistocytes Sodium Potassium Chloride Carbon Dioxide Anion Gap BUN Creatinine Estim Creat Clear Calc Estimated GFR POC Glucose 199 H Random Glucose Calcium Vancomycin Trough Const: General: comfortable and no acute distress Resp: Effort & Inspection: normal respiratory effort Cardio: Rhythm: regular rhythm GI: Palpation (GI): Soft to palpation, not firm, nontender and no guarding Progress Note: A&P Assessment and plan (1) Diverticulitis: Status: Acute Assessment and Plan: No pain or tenderness Okay to advance diet slowly as tolerated Antibiotics Clinically looks well and abdominal exam has remained benign and unremarkable Fall Risk Details Current Medications: Current Medications Generic Name Dose Route Start Last Admin Trade Name Freq PRN Reason Stop Dose Admin Acetaminophen 650 mg 02/12/21 23:34 02/15/21 04:12 Acetaminophen 325 Mg Tablet PO 650 mg Q6H PRN Administration Pain, Mild (Pain Scale 1-3) Albuterol/Ipratropium 3 ml 02/12/21 23:34 Albuterol/Iprat 2.5/0.5mg 3 Ml Ampul.Neb INHALE RQ4H PRN Shortness of Breath/Wheezing Amlodipine Besylate 10 mg 02/12/21 23:34 02/14/21 21:40 Amlodipine Besylate 10 Mg Tablet PO 10 mg BEDTIME ELVIE Administration Protocol Atorvastatin Calcium 80 mg 02/12/21 23:34 02/14/21 21:41 Atorvastatin Calcium 80 Mg Tablet PO 80 mg BEDTIME ELVIE Administration Bupropion HCl 300 mg 02/13/21 09:00 02/14/21 08:05 Bupropion Hcl Xl 300 Mg Tab.Er.24h PO 300 mg DAILY ELVIE Administration Carvedilol 25 mg 02/12/21 23:34 02/14/21 16:43 Carvedilol 25 Mg Tablet PO 25 mg BIDWM ELVIE Administration Protocol Docusate Sodium 100 mg 02/12/21 23:34 Docusate Sodium 100 Mg Capsule PO DAILY PRN Constipation Fluticasone Propionate 2 spray 02/13/21 09:00 02/14/21 08:07 Fluticasone Propionate Nasal 16 Gm [place] NOSTRIL-B 2 spray DAILY ELVIE Administration Fluticasone/Vilanterol 1 puff 02/13/21 08:00 02/14/21 09:09 Fluticasone/Vilanterol 100/25 Blst.W.Dev INHALE 1 puff RDAILY ELVIE Administration Heparin Sodium (Porcine) 5,000 unit 02/13/21 14:00 02/15/21 06:24 Heparin Sodium,Porcine 5,000 Unit/Ml Vial SUBCUT 5,000 unit Q8H ELVIE Administration Metronidazole 500 mg in 100 mls @ 100 mls/hr 02/12/21 22:30 02/15/21 06:26 Flagyl IV 100 mls/hr Q8H ELVIE Administration Ceftriaxone Sodium 1 gm/ 50 mls @ 100 mls/hr 02/13/21 18:00 02/14/21 17:42 Sodium Chloride IV Infused Q24H ELVIE Infusion Dextrose/Sodium Chloride 1,000 mls @ 80 mls/hr 02/13/21 14:00 02/14/21 21:41 D51/2ns IVCONT 80 mls/hr .[id number] ELVIE Administration Insulin Human Lispro 0 unit 02/13/21 11:30 02/14/21 21:51 Insulin Lispro 100 Unit/Ml 3 Ml Vial SUBCUT 2 unit QIDACHS ELVIE Administration Protocol Ondansetron HCl 4 mg 02/12/21 23:34 02/13/21 16:56 Ondansetron Hcl 4 Mg/2 Ml Vial IVPUSH 4 mg Q8H PRN Administration Nausea and Vomiting Pharmacy Consult 1 each 02/12/21 15:31 Consult Rx Perform Med Rec MISCELLANE ONCE PRN Consult order Pharmacy Consult 1 each 02/13/21 05:48 Consult Rx Vancomycin Dosing MISCELLANE DAILY PRN Consult order Sodium Chloride 3 ml 02/13/21 00:00 02/15/21 01:43 0.9 % Sodium Chloride Flush 3 Ml Syringe IVFLUSH 3 ml QSHIFT ELVIE Administration Tiotropium [place] 1 puff 02/13/21 08:00 02/14/21 09:09 Tiotropium [place] 18 Mcg Cap.W.Dev INHALE 1 puff RDAILY PENDING SALE TO [facility] Administration Vitamin D 25 mcg 02/13/21 09:00 02/14/21 08:05 Cholecalciferol (Vitamin D3) 25 Mcg Tablet PO 25 mcg DAILY ELVIE Administration Time Spent With Patient Time: Total time spent is greater than 50% in coordination of care (as documented) at patient's floor/unit and/or counseling patient: Time with patient: 15 - 24 minutes Procedures Date of Service Date of Service: 02/15/21 Quality Stroke Does the patient have a stroke diagnosis?: No VTE Prior VTE?: No VTE Risk Level:: Medical - moderate - high VTE Device Contraindication: N/A - Device Ordered VTE Drug Contraindication: N/A - Med Ordered
[2021-02-15] MEDS: Fluticasone/Vilanterol 100/25 BLST.W.DEV 1 PUFF INHALE (08:44)
[2021-02-15] MEDS: Dextrose 5 % and 0.45 % NaCl 1,000 ML 80 ML IVCONT (09:16)
[2021-02-15] MEDS: Insulin Lispro 100 UNIT/ML 3 ML VIAL SUBCUT ×3 (09:17→20:32)
[2021-02-15] MEDS: carvediloL 25 MG TABLET PO ×2 (09:18→17:16)
[2021-02-15] MEDS: Cholecalciferol (Vitamin D3) 25 MCG TABLET PO (09:18)
[2021-02-15] MEDS: buPROPion HCl XL 300 MG TAB.ER.24H PO (09:18)
[2021-02-15] MEDS: Fluticasone Propionate Nasal 16 GM SPRAY 2 SPRAY NOSTRIL-B (09:18)
--- NOTE | 2021-02-15 09:20 | PM.PNNEP ---
Subjective Subjective Date of Service: 02/15/21 Interval history: Events noted More alert Physical Exam Vital Signs: Vital Signs: Last Vital Signs Temp 98 F 02/15/21 07:07 Pulse 98 02/15/21 09:18 Resp 20 02/15/21 07:07 BP 110/59 L 02/15/21 09:18 Pulse Ox 95 02/15/21 07:07 Body Mass Index 49.4 Const: General: ill appearing Neck: Neck: Yes supple Resp: Auscultation: rhonchi Cardio: Heart sounds: no gallops and no murmurs GI: Palpation (GI): Soft to palpation Auscultation: normal bowel sounds Neuro: Motor exam (neuro): no asterixis Objective Data Labs CBC & Chem 7: 02/15/21 05:28 02/15/21 05:28 Labs: Laboratory Results - last 24 hr 02/14/21 02/14/21 02/14/21 11:46 16:15 20:14 WBC RBC Hgb Hct MCV MCH MCHC RDW Plt Count MPV Immature Gran % (Auto) Neut % (Auto) Lymph % (Auto) [place] % (Auto) Eos % (Auto) Baso % (Auto) Lymph # (Auto) [place] # (Auto) Eos # (Auto) Baso # (Auto) Abs Immat Gran (auto) Absolute Neuts (auto) Absolute Nucleated RBC Nucleated RBC % (auto) Neutrophils % (Manual) Band Neutrophils % Lymphocytes % (Manual) Monocytes % (Manual) Abs Neuts (Manual) Lymphocytes # (Manual) Monocytes # (Manual) Platelet Estimate Plt Morphology Comment RBC Morphology Ovalocytes Acanthocytes (Spur) Schistocytes Sodium Potassium Chloride Carbon Dioxide Anion Gap BUN Creatinine Estim Creat Clear Calc Estimated GFR POC Glucose 213 H 133 H 163 H Random Glucose Calcium Vancomycin Trough 02/15/21 02/15/21 02/15/21 05:28 05:28 05:28 WBC 11.1 H RBC 4.20 L Hgb 11.1 L Hct 34.5 L MCV 82.1 MCH 26.4 L MCHC 32.2 RDW 13.6 Plt Count 197 MPV 11.5 Immature Gran % (Auto) Cancelled Neut % (Auto) Cancelled Lymph % (Auto) Cancelled [place] % (Auto) Cancelled Eos % (Auto) Cancelled Baso % (Auto) Cancelled Lymph # (Auto) Cancelled [place] # (Auto) Cancelled Eos # (Auto) Cancelled Baso # (Auto) Cancelled Abs Immat Gran (auto) Cancelled Absolute Neuts (auto) Cancelled Absolute Nucleated RBC 0.000 Nucleated RBC % (auto) 0.0 Neutrophils % (Manual) 76 H Band Neutrophils % 11 H Lymphocytes % (Manual) 3 L Monocytes % (Manual) 10 Abs Neuts (Manual) 9.7 H Lymphocytes # (Manual) 0.3 L Monocytes # (Manual) 1.1 Platelet Estimate NORMAL Plt Morphology Comment NORMAL RBC Morphology NOTED Ovalocytes 1+ (5-14) Acanthocytes (Spur) 1+ (0-2) Schistocytes 1+ (0-2) Sodium 139 Potassium 3.5 Chloride 104 Carbon Dioxide 25 Anion Gap 14 BUN 25 H Creatinine 1.31 Estim Creat Clear Calc 77.6 Estimated GFR 55 POC Glucose Random Glucose 193 H Calcium 8.4 Vancomycin Trough 8.5 L 02/15/21 07:10 WBC RBC Hgb Hct MCV MCH MCHC RDW Plt Count MPV Immature Gran % (Auto) Neut % (Auto) Lymph % (Auto) [place] % (Auto) Eos % (Auto) Baso % (Auto) Lymph # (Auto) [place] # (Auto) Eos # (Auto) Baso # (Auto) Abs Immat Gran (auto) Absolute Neuts (auto) Absolute Nucleated RBC Nucleated RBC % (auto) Neutrophils % (Manual) Band Neutrophils % Lymphocytes % (Manual) Monocytes % (Manual) Abs Neuts (Manual) Lymphocytes # (Manual) Monocytes # (Manual) Platelet Estimate Plt Morphology Comment RBC Morphology Ovalocytes Acanthocytes (Spur) Schistocytes Sodium Potassium Chloride Carbon Dioxide Anion Gap BUN Creatinine Estim Creat Clear Calc Estimated GFR POC Glucose 199 H Random Glucose Calcium Vancomycin Trough Microbiology Microbiology Results: Microbiology 02/12/21 15:57 Blood - Venous Blood Culture - Final Streptococcus intermedius 02/12/21 15:57 Blood - Venous Blood Culture - Final Streptococcus intermedius 02/13/21 06:33 Blood - Venous Blood Culture - Preliminary No growth after 24 hours. 02/13/21 06:33 Blood - Venous Blood Culture - Preliminary No growth after 24 hours. Assessment & Plan Assessment and plan (1) Acute renal failure: Status: Acute Assessment and Plan: MELISSA superimposed on CKD MELISSA due to hypoperfusion Cr improving with hydration No obstruction be imaging Urine without significant blood/RBC Suggest: Keep I > O Avoid hypotension Avoid nephrotoxins Watch Cr and Vanco level closely while on Vanco Time Spent With Patient Time: Total time spent is greater than 50% in coordination of care (as documented) at patient's floor/unit and/or counseling patient: Procedures Date of Service Date of Service: 02/15/21 Progress Note: Quality Stroke Does the patient have a stroke diagnosis?: No
[2021-02-15 11:08] LABS: Glucose, Whole Blood 180 mg/dL (60-115)
--- NOTE | 2021-02-15 11:11 | P.CNID_ITS ---
History of Present Illness Data of Consult Service Date: 02/14/21 Requesting physician: Hermelindo Packer Primary Care Provider: [facility] Reason for consult: bacteremia He presents to hospital with one day of chills and feels low grade temperature. He has some nausea but no vomiting or diarrhea. No one else is ill COVID is negative. CT concern over diverticulitis,minor abscess Review of Systems Review of Systems: Yes all other systems are reviewed and are negative [facility] Past Medical History Medical History (Updated 02/15/21 @ 11:23 by Yoly Borja MD) Asthma Congestive heart failure COPD (chronic obstructive pulmonary disease) Coronary artery disease Diabetes Hypertension Obesity Obstructive sleep apnea Streptococcal bacteremia Family History Family History Father No problems noted. Mother No problems noted. Family history: reviewed and not pertinent Surgical History Surgical History H/O hernia repair Hx of colonoscopy Social History Social History Household Members: None Housing: House Do you presently have visiting nurse or other home services: No Alcohol intake: never Patient Tobacco Use Status: Current everyday Tobacco user service: No Current occupational status: disabled Meds Allergies Allergy/AdvReac Type Severity Reaction Status Date / Time crab [CRAB] Allergy Unknown ANAPHYLAXIS Verified 02/13/21 06:35 lisinopril [LISINOPRIL] Allergy Unknown cough Verified 02/13/21 06:35 Penicillins [PCN] Allergy Unknown RASH Verified 02/13/21 06:35 Sulfa (Sulfonamide Allergy Unknown RASH Verified 02/13/21 06:35 Antibiotics) [SULFA (SULFONAMIDE ANTIBIOTICS)] Active Medications: Current Medications Generic Name Dose Route Start Last Admin Trade Name Freq PRN Reason Stop Dose Admin Acetaminophen 650 mg 02/12/21 23:34 02/15/21 04:12 Acetaminophen 325 Mg Tablet PO 650 mg Q6H PRN Administration Pain, Mild (Pain Scale 1-3) Albuterol/Ipratropium 3 ml 02/12/21 23:34 Albuterol/Iprat 2.5/0.5mg 3 Ml Ampul.Neb INHALE RQ4H PRN Shortness of Breath/Wheezing Amlodipine Besylate 10 mg 02/12/21 23:34 02/14/21 21:40 Amlodipine Besylate 10 Mg Tablet PO 10 mg BEDTIME ELVIE Administration Protocol Atorvastatin Calcium 80 mg 02/12/21 23:34 02/14/21 21:41 Atorvastatin Calcium 80 Mg Tablet PO 80 mg BEDTIME ELVIE Administration Bupropion HCl 300 mg 02/13/21 09:00 02/15/21 09:18 Bupropion Hcl Xl 300 Mg Tab.Er.24h PO 300 mg DAILY ELVIE Administration Carvedilol 25 mg 02/12/21 23:34 02/15/21 09:18 Carvedilol 25 Mg Tablet PO 25 mg BIDWM ELVIE Administration Protocol Docusate Sodium 100 mg 02/12/21 23:34 Docusate Sodium 100 Mg Capsule PO DAILY PRN Constipation Fluticasone Propionate 2 spray 02/13/21 09:00 02/15/21 09:18 Fluticasone Propionate Nasal 16 Gm [place] NOSTRIL-B 2 spray DAILY ELVIE Administration Fluticasone/Vilanterol 1 puff 02/13/21 08:00 02/15/21 08:44 Fluticasone/Vilanterol 100/25 Blst.W.Dev INHALE 1 puff RDAILY ELVIE Administration Heparin Sodium (Porcine) 5,000 unit 02/13/21 14:00 02/15/21 06:24 Heparin Sodium,Porcine 5,000 Unit/Ml Vial SUBCUT 5,000 unit Q8H ELVIE Administration Metronidazole 500 mg in 100 mls @ 100 mls/hr 02/12/21 22:30 02/15/21 09:10 Flagyl IV Infused Q8H ELVIE Infusion Ceftriaxone Sodium 1 gm/ 50 mls @ 100 mls/hr 02/13/21 18:00 02/14/21 17:42 Sodium Chloride IV Infused Q24H ELVIE Infusion Dextrose/Sodium Chloride 1,000 mls @ 80 mls/hr 02/13/21 14:00 02/15/21 09:16 D51/2ns IVCONT 80 mls/hr .[id number] ELVIE Administration Insulin Human Lispro 0 unit 02/13/21 11:30 02/15/21 09:17 Insulin Lispro 100 Unit/Ml 3 Ml Vial SUBCUT 2 unit QIDACHS ELVIE Administration Protocol Ondansetron HCl 4 mg 02/12/21 23:34 02/13/21 16:56 Ondansetron Hcl 4 Mg/2 Ml Vial IVPUSH 4 mg Q8H PRN Administration Nausea and Vomiting Pharmacy Consult 1 each 02/12/21 15:31 Consult Rx Perform Med Rec MISCELLANE ONCE PRN Consult order Pharmacy Consult 1 each 02/13/21 05:48 Consult Rx Vancomycin Dosing MISCELLANE DAILY PRN Consult order Sodium Chloride 3 ml 02/13/21 00:00 02/15/21 09:17 0.9 % Sodium Chloride Flush 3 Ml Syringe IVFLUSH 3 ml QSHIFT ELVIE Administration Tiotropium [place] 1 puff 02/13/21 08:00 02/15/21 08:44 Tiotropium [place] 18 Mcg Cap.W.Dev INHALE 1 puff RDAILY ELVIE Administration Vitamin D 25 mcg 02/13/21 09:00 02/15/21 09:18 Cholecalciferol (Vitamin D3) 25 Mcg Tablet PO 25 mcg DAILY ELVIE Administration Home Medications Medication Instructions Recorded Confirmed Last Taken Type albuterol sulfate [ProAir HFA] 2 puff INHALATION Q4H PRN 02/12/21 02/12/21 Unknown History amlodipine 10 mg PO QPM 02/12/21 02/12/21 Unknown History buprenorphine-naloxone [Suboxone] 2 strip SUBLINGUAL DAILY 02/12/21 02/12/21 Unknown History bupropion HCl 150 mg PO BID 02/12/21 02/12/21 Unknown History calcium carbonate-vitamin D3 1 tab PO BID 02/12/21 02/12/21 Unknown History [Oyster Shell Calcium-Vit D3] carvedilol 25 mg PO BID 02/12/21 02/12/21 Unknown History cholecalciferol (vitamin D3) 1,000 unit PO DAILY 02/12/21 02/12/21 Unknown History clopidogrel 75 mg PO DAILY 02/12/21 02/12/21 Unknown History fluticasone propion-salmeterol 1 puff INHALATION BID 02/12/21 02/12/21 Unknown History [Advair Diskus] fluticasone propionate 2 spray INTRANASAL DAILY 02/12/21 02/12/21 Unknown [place] story furosemide 40 mg PO DAILY 02/12/21 02/12/21 Unknown History hydralazine 100 tab PO TID 02/12/21 02/12/21 Unknown History isosorbide mononitrate 60 mg PO DAILY 02/12/21 02/12/21 Unknown History losartan 100 mg PO DAILY 02/12/21 02/12/21 Unknown History metformin 500 mg PO BID 02/12/21 02/12/21 Unknown History nicotine (polacrilex) 1 ea PO Q2H PRN 02/12/21 02/12/21 Unknown History omeprazole 20 mg PO DAILY 02/12/21 02/12/21 Unknown History rosuvastatin 40 mg PO BEDTIME 02/12/21 02/12/21 Unknown History spironolactone 25 mg PO BID 02/12/21 02/12/21 Unknown History tiotropium bromide [Spiriva with 1 cap INHALATION DAILY 02/12/21 02/12/21 Unknown History HandiHaler] Physical Exam Vital Signs: Vital Signs: Last Vital Signs Temp 98 F 02/15/21 07:07 Pulse 98 02/15/21 09:18 Resp 20 02/15/21 07:07 BP 110/59 L 02/15/21 09:18 Pulse Ox 97 02/15/21 09:27 Body Mass Index 49.4 Const: General: cooperative Orientation/consciousness: patient oriented x3 HENMT: Head: Yes normal to inspection Mouth: Normal oral and palatal mucosa present Resp: Effort & Inspection: normal respiratory effort Cardio: Rate: regular rate Rhythm: regular rhythm GI: Palpation (GI): Soft to palpation and nontender Skin: General skin exam: no rashes or lesions noted Neuro: General: patient oriented x3 Extrem: General: Yes normal to inspection Results Labs CBC & Chem 7: 02/15/21 05:28 02/15/21 05:28 Labs: Short CBC 02/15/21 Range/Units 05:28 WBC 11.1 H (4.8-10.8) X10*3/uL Hgb 11.1 L (14.0-18.0) g/dl Hct 34.5 L (42-52) % Plt Count 197 (160-400) X10*3/uL BMP 02/15/21 05:28 Sodium 139 Potassium 3.5 Chloride 104 Carbon Dioxide 25 BUN 25 H Creatinine 1.31 Calcium 8.4 Microbiology Microbiology Results: Microbiology 02/13/21 06:33 Blood - Venous Blood Culture - Preliminary No growth after 48 hours. 02/13/21 06:33 Blood - Venous Blood Culture - Preliminary No growth after 48 hours. 02/12/21 15:57 Blood - Venous Blood Culture - Final Streptococcus intermedius 02/12/21 15:57 Blood - Venous Blood Culture - Final Streptococcus intermedius Assessment and Plan (1) Sepsis: Status: Acute He has likely diverticular source of strep intermedius He has sensitivity to Ceftriaxone for strep and metronidazole covers anerobes Suggest Would continue antibiotics IV Would be concerned about endocarditis and check echo and if concerns about endocarditis 4 weeks IV Ceftriaxone (2) Diverticulitis: Status: Acute (3) Streptococcal bacteremia: Status: Acute
--- NOTE | 2021-02-15 12:16 | HO.PM.IMPN ---
Subjective Subjective Date of Service: 02/15/21 Interval History: The patient was seen and evaluated this morning Laying in bed, improving overall for the last few days Abdominal pain significantly lower than before Denies any fever, chills or shortness of breath No reported other overnight events. Systemic review: No fever, chills to a but has generalized weakness No chest pain, palpitation No shortness of breath or coughing Abdominal pain significantly improved No urinary symptoms No any rash or wounds Physical Exam Vital Signs: Vital Signs: Last Vital Signs Temp 97.6 F 02/15/21 11:16 Pulse 58 02/15/21 11:16 Resp 18 02/15/21 11:16 BP 109/60 02/15/21 11:16 Pulse Ox 96 02/15/21 11:16 Body Mass Index 49.4 Const: Other: Constitutional : Alert with stimulation, disoriented, not in distress Neck : Normal inspection, Supple Cardiovascular : RRR, S1 S2, no lower extremity edema Respiratory : Good bilateral air entry, no crackles, wheezes or rhonchi Gastrointestinal: soft, lax, Normal bowel sounds, Non tender Skin : Warm/Dry, No rash Neurological : Alert & disoriented to, No focal deficit Objective Data Current Medications Generic Name Dose Route Start Last Admin Trade Name Freq PRN Reason Stop Dose Admin Acetaminophen 650 mg 02/12/21 23:34 02/15/21 04:12 Acetaminophen 325 Mg Tablet PO 650 mg Q6H PRN Administration Pain, Mild (Pain Scale 1-3) Albuterol/Ipratropium 3 ml 02/12/21 23:34 Albuterol/Iprat 2.5/0.5mg 3 Ml Ampul.Neb INHALE RQ4H PRN Shortness of Breath/Wheezing Amlodipine Besylate 10 mg 02/12/21 23:34 02/14/21 21:40 Amlodipine Besylate 10 Mg Tablet PO 10 mg BEDTIME ELVIE Administration Protocol Atorvastatin Calcium 80 mg 02/12/21 23:34 02/14/21 21:41 Atorvastatin Calcium 80 Mg Tablet PO 80 mg BEDTIME ELVIE Administration Bupropion HCl 300 mg 02/13/21 09:00 02/15/21 09:18 Bupropion Hcl Xl 300 Mg Tab.Er.24h PO 300 mg DAILY ELVIE Administration Carvedilol 25 mg 02/12/21 23:34 02/15/21 09:18 Carvedilol 25 Mg Tablet PO 25 mg BIDWM ELVIE Administration Protocol Docusate Sodium 100 mg 02/12/21 23:34 Docusate Sodium 100 Mg Capsule PO DAILY PRN Constipation Fluticasone Propionate 2 spray 02/13/21 09:00 02/15/21 09:18 Fluticasone Propionate Nasal 16 Gm [place] NOSTRIL-B 2 spray DAILY ELVIE Administration Fluticasone/Vilanterol 1 puff 02/13/21 08:00 02/15/21 08:44 Fluticasone/Vilanterol 100/25 Blst.W.Dev INHALE 1 puff RDAILY ELVIE Administration Heparin Sodium (Porcine) 5,000 unit 02/13/21 14:00 02/15/21 06:24 Heparin Sodium,Porcine 5,000 Unit/Ml Vial SUBCUT 5,000 unit Q8H ELVIE Administration Metronidazole 500 mg in 100 mls @ 100 mls/hr 02/12/21 22:30 02/15/21 09:10 Flagyl IV Infused Q8H ELVIE Infusion Ceftriaxone Sodium 1 gm/ 50 mls @ 100 mls/hr 02/13/21 18:00 02/14/21 17:42 Sodium Chloride IV Infused Q24H ELVIE Infusion Dextrose/Sodium Chloride 1,000 mls @ 80 mls/hr 02/13/21 14:00 02/15/21 09:16 D51/2ns IVCONT 80 mls/hr .[id number] ELVIE Administration Insulin Human Lispro 0 unit 02/13/21 11:30 02/15/21 11:24 Insulin Lispro 100 Unit/Ml 3 Ml Vial SUBCUT 2 unit QIDACHS ELVIE Administration Protocol Ondansetron HCl 4 mg 02/12/21 23:34 02/13/21 16:56 Ondansetron Hcl 4 Mg/2 Ml Vial IVPUSH 4 mg Q8H PRN Administration Nausea and Vomiting Pharmacy Consult 1 each 02/12/21 15:31 Consult Rx Perform Med Rec MISCELLANE ONCE PRN Consult order Pharmacy Consult 1 each 02/13/21 05:48 Consult Rx Vancomycin Dosing MISCELLANE DAILY PRN Consult order Sodium Chloride 3 ml 02/13/21 00:00 02/15/21 09:17 0.9 % Sodium Chloride Flush 3 Ml Syringe IVFLUSH 3 ml QSHIFT ELVIE Administration Tiotropium [place] 1 puff 02/13/21 08:00 02/15/21 08:44 Tiotropium [place] 18 Mcg Cap.W.Dev INHALE 1 puff RDAILY ELVIE Administration Vitamin D 25 mcg 02/13/21 09:00 02/15/21 09:18 Cholecalciferol (Vitamin D3) 25 Mcg Tablet PO 25 mcg DAILY ELVEI Administration Labs CBC & Chem 7: 02/15/21 05:28 02/15/21 05:28 Labs: Laboratory Results - last 24 hr 02/14/21 02/14/21 02/15/21 16:15 20:14 05:28 WBC RBC Hgb Hct MCV MCH MCHC RDW Plt Count MPV Immature Gran % (Auto) Neut % (Auto) Lymph % (Auto) [place] % (Auto) Eos % (Auto) Baso % (Auto) Lymph # (Auto) [place] # (Auto) Eos # (Auto) Baso # (Auto) Abs Immat Gran (auto) Absolute Neuts (auto) Absolute Nucleated RBC Nucleated RBC % (auto) Neutrophils % (Manual) Band Neutrophils % Lymphocytes % (Manual) Monocytes % (Manual) Abs Neuts (Manual) Lymphocytes # (Manual) Monocytes # (Manual) Platelet Estimate Plt Morphology Comment RBC Morphology Ovalocytes Acanthocytes (Spur) Schistocytes Sodium Potassium Chloride Carbon Dioxide Anion Gap BUN Creatinine Estim Creat Clear Calc Estimated GFR POC Glucose 133 H 163 H Random Glucose Calcium Vancomycin Trough 8.5 L 02/15/21 02/15/21 02/15/21 05:28 05:28 07:10 WBC 11.1 H RBC 4.20 L Hgb 11.1 L Hct 34.5 L MCV 82.1 MCH 26.4 L MCHC 32.2 RDW 13.6 Plt Count 197 MPV 11.5 Immature Gran % (Auto) Cancelled Neut % (Auto) Cancelled Lymph % (Auto) Cancelled [place] % (Auto) Cancelled Eos % (Auto) Cancelled Baso % (Auto) Cancelled Lymph # (Auto) Cancelled [place] # (Auto) Cancelled Eos # (Auto) Cancelled Baso # (Auto) Cancelled Abs Immat Gran (auto) Cancelled Absolute Neuts (auto) Cancelled Absolute Nucleated RBC 0.000 Nucleated RBC % (auto) 0.0 Neutrophils % (Manual) 76 H Band Neutrophils % 11 H Lymphocytes % (Manual) 3 L Monocytes % (Manual) 10 Abs Neuts (Manual) 9.7 H Lymphocytes # (Manual) 0.3 L Monocytes # (Manual) 1.1 Platelet Estimate NORMAL Plt Morphology Comment NORMAL RBC Morphology NOTED Ovalocytes 1+ (5-14) Acanthocytes (Spur) 1+ (0-2) Schistocytes 1+ (0-2) Sodium 139 Potassium 3.5 Chloride 104 Carbon Dioxide 25 Anion Gap 14 BUN 25 H Creatinine 1.31 Estim Creat Clear Calc 77.6 Estimated GFR 55 POC Glucose 199 H Random Glucose 193 H Calcium 8.4 Vancomycin Trough 02/15/21 11:04 WBC RBC Hgb Hct MCV MCH MCHC RDW Plt Count MPV Immature Gran % (Auto) Neut % (Auto) Lymph % (Auto) [place] % (Auto) Eos % (Auto) Baso % (Auto) Lymph # (Auto) [place] # (Auto) Eos # (Auto) Baso # (Auto) Abs Immat Gran (auto) Absolute Neuts (auto) Absolute Nucleated RBC Nucleated RBC % (auto) Neutrophils % (Manual) Band Neutrophils % Lymphocytes % (Manual) Monocytes % (Manual) Abs Neuts (Manual) Lymphocytes # (Manual) Monocytes # (Manual) Platelet Estimate Plt Morphology Comment RBC Morphology Ovalocytes Acanthocytes (Spur) Schistocytes Sodium Potassium Chloride Carbon Dioxide Anion Gap BUN Creatinine Estim Creat Clear Calc Estimated GFR POC Glucose 180 H Random Glucose Calcium Vancomycin Trough Microbiology Microbiology Results: Microbiology 02/13/21 06:33 Blood Culture - Preliminary Blood - Venous No growth after 48 hours. 02/13/21 06:33 Blood Culture - Preliminary Blood - Venous No growth after 48 hours. 02/12/21 15:57 Blood Culture - Final Blood - Venous Streptococcus intermedius 02/12/21 15:57 Blood Culture - Final Blood - Venous Streptococcus intermedius Quality Stroke Does the patient have a stroke diagnosis?: No VTE Prior VTE?: No VTE Risk Level:: Medical - moderate - high VTE Device Contraindication: N/A - Device Ordered VTE Drug Contraindication: N/A - Med Ordered Assessment and Plan (1) Sepsis: Status: Acute Assessment and Plan: 60M presented with back pain, found to have sepsis due to diverticulitis with microperforatoin complciated by acute hypoxic respiraotry failure from pnuemonia, MELISSA, delerium severe sepsis, resolved 2/2 acute diverticulitis with micro perforation continue ceftriaxone, Flagyl Discontinue vancomycin Surgery input appreciated Advance to full liquids Discontinue IV fluids acute hypoxic respiratory failure 2/2 Pneumonia Wean oxygen as tolerated Continue antibiotic treatment gram-positive bacteremia Blood culture growing Streptococcus intermedius Continue treatment with IV ceftriaxone Wean oxygen down as tolerated Pending ID evaluation acute delirium due to opioid dependence with withdrawal Discontinue IV Dilaudid addiction team input appreciated To restart Suboxone once the patient asked for it diabetes insulin chronic diastolic CHF Restart home does Lasix acute kidney injury Resolved DVT prophylaxis with heparin
[2021-02-15 15:43] LABS: Glucose, Whole Blood 109 mg/dL (60-115)
[2021-02-15] MEDS: cefTRIAXone sodium 1 GM in 0.9 % Sodium Chloride 50 ML IV (17:16)
--- NOTE | 2021-02-15 17:21 | PM.EVENT ---
Event Note Date of Service: 02/15/21 Event Note: Addiction follow up: Per RN patient has been in good spirits and has not been displaying or reporting any opioid withdrawal sx. Has not requested suboxone Plan: no further recommendations at this time
[2021-02-15] MEDS: amLODIPine Besylate 10 MG TABLET PO (20:29)
[2021-02-15 20:30] LABS: Glucose, Whole Blood 220 mg/dL (60-115)
[2021-02-15] MEDS: Atorvastatin Calcium 80 MG TABLET PO (20:32)
[2021-02-16] VITALS (7 sets, daily range): BP systolic 120–146; BP diastolic 60–71; PULSE 63–79; RESP 17–20; TEMP 36.1–37.5; O2SAT 92–96; BMI 49.7
[2021-02-16] MEDS: 0.9 % Sodium Chloride Flush 3 ML SYRINGE IVFLUSH ×3 (00:49→20:53)
[2021-02-16 07:04] LABS: Hematocrit 33.2 % (42-52); Hemoglobin 10.7 g/dl (14.0-18.0); Mean Corpuscular HGB Conc 32.2 g/dl (31.0-36.0); Mean Corpuscular Hemoglobin 26.5 pg (27.0-33.0); Mean Corpuscular Volume 82.2 fL (80-98); Mean Platelet Volume 10.8 fL (9.4-12.4); Platelet Count 187 X10*3/uL (160-400); Red Blood Count 4.04 X10*6/uL (4.60-5.80); Red Cell Distribution Width 13.6 % (11.0-16.0); White Blood Count 11.9 X10*3/uL (4.8-10.8)
[2021-02-16 07:09] LABS: Glucose, Whole Blood 160 mg/dL (60-115)
[2021-02-16 07:29] LABS: Anion Gap 13 (12-20); Blood Urea Nitrogen 21 mg/dL (9-16); Calcium 8.6 mg/dL (8.4-10.2); Carbon Dioxide 25 mmol/L (22-29); Chloride 106 mmol/L (96-108); Estimated Glomerular Filt Rate > 60; Glucose Random 171 mg/dL (60-115); Potassium 3.3 mmol/L (3.3-5.1); Sodium 141 mmol/L (135-145)
[2021-02-16] MEDS: metroNIDAZOLE/NS 500 MG/100 ML PIGGYBACK 100 MG IV ×3 (07:34→20:51)
[2021-02-16] MEDS: Heparin Sodium,Porcine 5,000 UNIT/ML VIAL 5000 UNIT SUBCUT ×3 (07:34→20:52)
[2021-02-16] MEDS: Clopidogrel Bisulfate 75 MG TABLET PO (07:35)
[2021-02-16] MEDS: Furosemide 40 MG TABLET PO (07:35)
[2021-02-16] MEDS: carvediloL 25 MG TABLET PO ×2 (07:35→16:38)
[2021-02-16] MEDS: Insulin Lispro 100 UNIT/ML 3 ML VIAL SUBCUT ×4 (07:35→20:52)
[2021-02-16] MEDS: Cholecalciferol (Vitamin D3) 25 MCG TABLET PO (07:35)
[2021-02-16] MEDS: buPROPion HCl XL 300 MG TAB.ER.24H PO (07:35)
[2021-02-16 07:36] LABS: Vancomycin Trough < 3.0 mcg/mL (10.0-20.0)
[2021-02-16] MEDS: Fluticasone Propionate Nasal 16 GM SPRAY 2 SPRAY NOSTRIL-B (07:36)
[2021-02-16] MEDS: Omeprazole 20 MG CAPSULE.DR PO (07:36)
[2021-02-16] MEDS: Fluticasone/Vilanterol 100/25 BLST.W.DEV 1 PUFF INHALE (07:44)
[2021-02-16 07:49] LABS: Band Neutrophils Percent 5 % (3-5); Eosinophils Absolute Manual 0.1 X10*3/UL (0.0-0.8); Eosinophils Percent Manual 1 % (0-4); Lymphocytes Absolute Manual 1.2 X10*3/uL (0.6-4.8); Lymphocytes Percent Manual 10 % (20-40); Monocytes Absolute Manual 1.2 X10*3/uL (0.0-1.2); Monocytes Percent Manual 10 % (2-11); Neutrophils Absolute Manual 9.4 X10*3/uL (2.2-7.9); Neutrophils Percent Manual 74 % (45-73)
[2021-02-16 07:50] LABS: RBC Morphology NOTED
[2021-02-16 07:51] LABS: Acanthocytes 3+ (>5) /OIF
[2021-02-16 07:53] LABS: Ovalocytes 1+ (5-14) /OIF
[2021-02-16 07:54] LABS: Platelet Estimate NORMAL (NORMAL); Platelet Morphology Comment NORM
--- NOTE | 2021-02-16 09:47 | PM.PNGS ---
Subjective Subjective Date of Service: 02/16/21 Interval history: denies any abdominal pain says he feels well - asking about discharge Physical Exam Vital Signs: Vital Signs: Last Vital Signs Temp 97.5 F 02/16/21 07:11 Pulse 69 02/16/21 07:35 Resp 20 02/16/21 07:11 BP 132/70 02/16/21 07:35 Pulse Ox 94 02/16/21 07:11 Body Mass Index 49.7 Laboratory Results - last 24 hr 02/15/21 02/15/21 02/15/21 11:04 15:38 20:27 WBC RBC Hgb Hct MCV MCH MCHC RDW Plt Count MPV Absolute Nucleated RBC Nucleated RBC % (a uto) Neutrophils % (Man ual) Band Neutrophils % Lymphocytes % (Man ual) Monocytes % (Manua l) Eosinophils % (Man ual) Abs Neuts (Manual) Lymphocytes # (Man ual) Monocytes # (Manua l) Eosinophils # (Man ual) Platelet Estimate Plt Morphology Com ment RBC Morphology Ovalocytes Acanthocytes (Spur ) Sodium Potassium Chloride Carbon Dioxide Anion Gap BUN Creatinine Estim Creat Clear Calc Estimated GFR POC Glucose 180 H 109 220 H Random Glucose Calcium Vancomycin Trough 02/16/21 02/16/21 02/16/21 06:42 06:42 06:42 WBC 11.9 H RBC 4.04 L Hgb 10.7 L Hct 33.2 L MCV 82.2 MCH 26.5 L MCHC 32.2 RDW 13.6 Plt Count 187 MPV 10.8 Absolute Nucleated RBC 0.000 Nucleated RBC % (a uto) 0.0 Neutrophils % (Man ual) 74 H Band Neutrophils % 5 Lymphocytes % (Man ual) 10 L Monocytes % (Manua l) 10 Eosinophils % (Man ual) 1 Abs Neuts (Manual) 9.4 H Lymphocytes # (Man ual) 1.2 Monocytes # (Manua l) 1.2 Eosinophils # (Man ual) 0.1 Platelet Estimate NORMAL Plt Morphology Com ment NORM RBC Morphology NOTED Ovalocytes 1+ (5-14) Acanthocytes (Spur ) 3+ (>5) Sodium 141 Potassium 3.3 Chloride 106 Carbon Dioxide 25 Anion Gap 13 BUN 21 H Creatinine 1.20 Estim Creat Clear Calc 85.0 Estimated GFR > 60 POC Glucose Random Glucose 171 H Calcium 8.6 Vancomycin Trough < 3.0 L 02/16/21 07:05 WBC RBC Hgb Hct MCV MCH MCHC RDW Plt Count MPV Absolute Nucleated RBC Nucleated RBC % (a uto) Neutrophils % (Man ual) Band Neutrophils % Lymphocytes % (Man ual) Monocytes % (Manua l) Eosinophils % (Man ual) Abs Neuts (Manual) Lymphocytes # (Man ual) Monocytes # (Manua l) Eosinophils # (Man ual) Platelet Estimate Plt Morphology Com ment RBC Morphology Ovalocytes Acanthocytes (Spur ) Sodium Potassium Chloride Carbon Dioxide Anion Gap BUN Creatinine Estim Creat Clear Calc Estimated GFR POC Glucose 160 H Random Glucose Calcium Vancomycin Trough Const: General: comfortable and no acute distress Resp: Effort & Inspection: normal respiratory effort Cardio: Rhythm: regular rhythm GI: Other: obese Palpation (GI): Soft to palpation, not firm, nontender and no guarding Progress Note: A&P Assessment and plan (1) Diverticulitis: Status: Acute Assessment and Plan: clinically resolving no pain or tenderness no fever WBC lower ok to slowly advance diet as tolerated has other medical issues ongoing - opioid abuse, COPD PO abx for diverticulitis on discharge Fall Risk Details Current Medications: Current Medications Generic Name Dose Route Start Last Admin Trade Name Freq PRN Reason Stop Dose Admin Acetaminophen 650 mg 02/12/21 23:34 02/15/21 04:12 Acetaminophen 325 Mg Tablet PO 650 mg Q6H PRN Administration Pain, Mild (Pain Scale 1-3) Albuterol/Ipratropium 3 ml 02/12/21 23:34 Albuterol/Iprat 2.5/0.5mg 3 Ml Ampul.Neb INHALE RQ4H PRN Shortness of Breath/Wheezing Amlodipine Besylate 10 mg 02/12/21 23:34 02/15/21 20:29 Amlodipine Besylate 10 Mg Tablet PO 10 mg BEDTIME ELVIE Administration Protocol Atorvastatin Calcium 80 mg 02/12/21 23:34 02/15/21 20:32 Atorvastatin Calcium 80 Mg Tablet PO 80 mg BEDTIME ELVIE Administration Bupropion HCl 300 mg 02/13/21 09:00 02/16/21 07:35 Bupropion Hcl Xl 300 Mg Tab.Er.24h PO 300 mg DAILY ELVIE Administration Carvedilol 25 mg 02/12/21 23:34 02/16/21 07:35 Carvedilol 25 Mg Tablet PO 25 mg BIDWM ELVIE Administration Protocol Clopidogrel Bisulfate 75 mg 02/16/21 09:00 02/16/21 07:35 Clopidogrel Bisulfate 75 Mg Tablet PO 75 mg DAILY ELVIE Administration Docusate Sodium 100 mg 02/12/21 23:34 Docusate Sodium 100 Mg Capsule PO DAILY PRN Constipation Fluticasone Propionate 2 spray 02/13/21 09:00 02/16/21 07:36 Fluticasone Propionate Nasal 16 Gm [place] NOSTRIL-B 2 spray DAILY ELVIE Administration Fluticasone/Vilanterol 1 puff 02/13/21 08:00 02/16/21 07:44 Fluticasone/Vilanterol 100/25 Blst.W.Dev INHALE 1 puff RDAILY ELVIE Administration Furosemide 40 mg 02/16/21 09:00 02/16/21 07:35 Furosemide 40 Mg Tablet PO 40 mg DAILY ELVIE Administration Protocol Heparin Sodium (Porcine) 5,000 unit 02/13/21 14:00 02/16/21 07:34 Heparin Sodium,Porcine 5,000 Unit/Ml Vial SUBCUT 5,000 unit Q8H ELVIE Administration Metronidazole 500 mg in 100 mls @ 100 mls/hr 02/12/21 22:30 02/16/21 07:52 Flagyl IV 0 mls/hr Q8H ELVIE Infusion Ceftriaxone Sodium 1 gm/ 50 mls @ 100 mls/hr 02/13/21 18:00 02/15/21 18:23 Sodium Chloride IV Infused Q24H ELVIE Infusion Insulin Human Lispro 0 unit 02/13/21 11:30 02/16/21 07:35 Insulin Lispro 100 Unit/Ml 3 Ml Vial SUBCUT 2 unit QIDACHS ELVIE Administration Protocol Omeprazole 20 mg 02/16/21 09:00 02/16/21 07:36 Omeprazole 20 Mg Capsule.Dr PO 20 mg DAILY ELVIE Administration Ondansetron HCl 4 mg 02/12/21 23:34 02/13/21 16:56 Ondansetron Hcl 4 Mg/2 Ml Vial IVPUSH 4 mg Q8H PRN Administration Nausea and Vomiting Pharmacy Consult 1 each 02/12/21 15:31 Consult Rx Perform Med Rec MISCELLANE ONCE PRN Consult order Pharmacy Consult 1 each 02/13/21 05:48 Consult Rx Vancomycin Dosing MISCELLANE DAILY PRN Consult order Sodium Chloride 3 ml 02/13/21 00:00 06/18/21 07:35 0.9 % Sodium Chloride Flush 3 Ml Syringe IVFLUSH 3 ml QSHIFT ELVIE Administration Tiotropium [place] 1 puff 02/13/21 08:00 02/16/21 07:44 Tiotropium [place] 18 Mcg Cap.W.Dev INHALE 1 puff RDAILY ELVIE Administration Vitamin D 25 mcg 02/13/21 09:00 02/16/21 07:35 Cholecalciferol (Vitamin D3) 25 Mcg Tablet PO 25 mcg DAILY ELVIE Administration Time Spent With Patient Time: Total time spent is greater than 50% in coordination of care (as documented) at patient's floor/unit and/or counseling patient: Time with patient: 15 - 24 minutes Procedures Date of Service Date of Service: 02/16/21 Quality Stroke Does the patient have a stroke diagnosis?: No VTE Prior VTE?: No VTE Risk Level:: Medical - moderate - high VTE Device Contraindication: N/A - Device Ordered VTE Drug Contraindication: N/A - Med Ordered
--- NOTE | 2021-02-16 10:29 | P.PNNP_ITS ---
Subjective Subjective Date of Service: 02/16/21 Interval history: Events noted Off IVF Started Lasix yesterday Off [facility] Physical Exam Vital Signs: Vital Signs: Last Vital Signs Temp 97.5 F 02/16/21 07:11 Pulse 69 02/16/21 07:35 Resp 20 02/16/21 07:11 BP 132/70 02/16/21 07:35 Pulse Ox 94 02/16/21 07:11 Body Mass Index 49.7 Const: General: ill appearing Neck: Neck: Yes supple Resp: Auscultation: rhonchi Cardio: Heart sounds: no gallops and no murmurs GI: Palpation (GI): Soft to palpation Auscultation: normal bowel sounds Neuro: Motor exam (neuro): no asterixis Objective Data Labs CBC & Chem 7: 02/16/21 06:42 02/16/21 06:42 Labs: Laboratory Results - last 24 hr 02/15/21 02/15/21 02/15/21 11:04 15:38 20:27 WBC RBC Hgb Hct MCV MCH MCHC RDW Plt Count MPV Absolute Nucleated RBC Nucleated RBC % (auto) Neutrophils % (Manual) Band Neutrophils % Lymphocytes % (Manual) Monocytes % (Manual) Eosinophils % (Manual) Abs Neuts (Manual) Lymphocytes # (Manual) Monocytes # (Manual) Eosinophils # (Manual) Platelet Estimate Plt Morphology Comment RBC Morphology Ovalocytes Acanthocytes (Spur) Sodium Potassium Chloride Carbon Dioxide Anion Gap BUN Creatinine Estim Creat Clear Calc Estimated GFR POC Glucose 180 H 109 220 H Random Glucose Calcium Vancomycin Trough 02/16/21 02/16/21 02/16/21 06:42 06:42 06:42 WBC 11.9 H RBC 4.04 L Hgb 10.7 L Hct 33.2 L MCV 82.2 MCH 26.5 L MCHC 32.2 RDW 13.6 Plt Count 187 MPV 10.8 Absolute Nucleated RBC 0.000 Nucleated RBC % (auto) 0.0 Neutrophils % (Manual) 74 H Band Neutrophils % 5 Lymphocytes % (Manual) 10 L Monocytes % (Manual) 10 Eosinophils % (Manual) 1 Abs Neuts (Manual) 9.4 H Lymphocytes # (Manual) 1.2 Monocytes # (Manual) 1.2 Eosinophils # (Manual) 0.1 Platelet Estimate NORMAL Plt Morphology Comment NORM RBC Morphology NOTED Ovalocytes 1+ (5-14) Acanthocytes (Spur) 3+ (>5) Sodium 141 Potassium 3.3 Chloride 106 Carbon Dioxide 25 Anion Gap 13 BUN 21 H Creatinine 1.20 Estim Creat Clear Calc 85.0 Estimated GFR > 60 POC Glucose Random Glucose 171 H Calcium 8.6 Vancomycin Trough < 3.0 L 02/16/21 07:05 WBC RBC Hgb Hct MCV MCH MCHC RDW Plt Count MPV Absolute Nucleated RBC Nucleated RBC % (auto) Neutrophils % (Manual) Band Neutrophils % Lymphocytes % (Manual) Monocytes % (Manual) Eosinophils % (Manual) Abs Neuts (Manual) Lymphocytes # (Manual) Monocytes # (Manual) Eosinophils # (Manual) Platelet Estimate Plt Morphology Comment RBC Morphology Ovalocytes Acanthocytes (Spur) Sodium Potassium Chloride Carbon Dioxide Anion Gap BUN Creatinine Estim Creat Clear Calc Estimated GFR POC Glucose 160 H Random Glucose Calcium Vancomycin Trough Microbiology Microbiology Results: Microbiology 02/13/21 06:33 Blood - Venous Blood Culture - Preliminary No growth after 48 hours. 02/13/21 06:33 Blood - Venous Blood Culture - Preliminary No growth after 48 hours. 02/12/21 15:57 Blood - Venous Blood Culture - Final Streptococcus intermedius 02/12/21 15:57 Blood - Venous Blood Culture - Final Streptococcus intermedius Assessment & Plan Assessment and plan (1) Acute renal failure: Status: Acute Assessment and Plan: MELISSA superimposed on CKD MELISSA due to hypoperfusion Cr improving with hydration No obstruction be imaging Urine without significant blood/RBC Off Vanco now Suggest: Avoid hypotension Avoid nephrotoxins Watch Cr Time Spent With Patient Time: Total time spent is greater than 50% in coordination of care (as documented) at patient's floor/unit and/or counseling patient: Procedures Date of Service Date of Service: 02/16/21 Progress Note: Quality Stroke Does the patient have a stroke diagnosis?: No
--- NOTE | 2021-02-16 10:56 | CONS_ITS ---
DATE OF SERVICE: 02/13/2021 REASON FOR CONSULTATION: I was called to see this patient to assist in the management of acute kidney injury. HISTORY OF PRESENT ILLNESS: To summarize, Christine is a 60-year-old man with multiple medical problems. He has a history of hypertension, diabetes mellitus, obesity, and coronary artery disease. Renal function has been essentially at baseline with a creatinine of 1.2 mg/dL. There is a question of obstructive sleep apnea, but he has no show this appointments in the past. He comes in because of back pain and workup showed diverticulitis with microperfusion. At the time of admission, he was found to have acute kidney injury with a BUN of 61 and creatinine of 3.19. He was given IV hydration and the creatinine has dropped to less than 3 and this consultation has been requested today for management of the acute kidney injury. Ongoing medical problems as described above. FAMILY HISTORY: Not significant for this admission. PAST SURGICAL HISTORY: Includes herniorrhaphy and colonoscopy. SOCIAL HISTORY: There is no history of any smoking or alcohol abuse. ALLERGIES: HE IS ALLERGIC TO LISINOPRIL, PENICILLIN, AND SULFA. MEDICATIONS: At home included albuterol, amlodipine, bupropion, calcium carbonate with vitamin D, cholecalciferol, carvedilol, furosemide 40 mg, hydralazine 100 t.i.d., isosorbide, losartan 100 mg, metformin 500 b.i.d., nicotine, omeprazole, rosuvastatin, spironolactone 25 b.i.d., and Spiriva. REVIEW OF SYSTEMS: Positive for back pain and abdominal pain. No headache, nausea, or vomiting. No shortness of breath. No urinary symptoms. No fever. No rash. All other systems were reviewed. PHYSICAL EXAMINATION: VITAL SIGNS: The patient is a middle-aged man who is obese, comfortable, not in any distress, sleepy, arousable. HEENT: Mucosa is dry. LUNGS: Air entry equal. No rales. HEART: S1 and S2 heard. No gallop. ABDOMEN: Obese, soft, mild tenderness. No rebound or guarding. NEURO: He is arousable. No involuntary movements. No myoclonus. EXTREMITIES: No significant edema. No rash. No clubbing. VITAL SIGNS: Blood pressure today was 100/54 and pulse 68. He is afebrile. LABORATORY DATA: As of today, serum electrolytes were normal. CO2 of 26, BUN 61, creatinine 2.71, calcium 8.2. Urinalysis showed 1+ protein by dipstick, no blood. Hemoglobin was 9.1, WBC and platelets of 182. CT abdomen at the time of admission showed nonobstructive 1 mm kidney stones in the right kidney. No stones on the left. No hydronephrosis. There is a stable cyst. IMPRESSION: 60-year-old man with obesity, hypertension, diabetes mellitus, has sustained acute kidney injury. Acute kidney injury is most likely from hypoperfusion due to volume depletion or relatively low blood pressure. No evidence of obstruction on the CT scan. Based on the urinary findings, I do not believe he has any active glomerular interstitial disease. RECOMMENDATIONS: My recommendation will be to optimize the blood pressure. Hold all antihypertensive medications including diuretics. Agree with IV hydration. Keep intake more than the output and maintain systolic blood pressure more than 100 mmHg. We will obtain a urine for protein creatinine ratio. The renal function should improve once he is hemodynamically stabilized. We will follow him along with the team. MD LOIS Grajeda/MODL / [id number] MTDJuan David
[2021-02-16 11:01] LABS: Glucose, Whole Blood 197 mg/dL (60-115)
--- NOTE | 2021-02-16 12:13 | HO.MIDLINE_ITS ---
PICC Line Insertion MIDLINE INSERTION Diagnosis: MELISSA Indication: IV ANTIBIOTICS Pertinent Labs: REVIEWED Technique: Using sterile technique including cap and mask, glove and drape, the RIGHT arm was prepped and draped in the usual sterile fashion of full barrier technique with CHG. Using ultrasound guidance, CEPHALIC vein access was obtained IN SINGLE ATTEMPT BY THIS RN. A (20G x 8CM), SINGLE LUMEN, NON-PASV MIDLINE was positioned. The procedure was performed in 487. Ultrasound was used to document vein patency and for needle entry. A formal ultrasound picture was recorded. [employer] has released the line for use and it is currently dressed with a StatLock, Tegaderm, and CHG disc. Verification has been performed for blood return and line patency. Arm Circumference: 43.5 CM Equipment: [employer] POWERGLIDE PRO MIDLINE Catheter Type: SINGLE LUMEN, NON-PASV, (20G x 8CM) Lot #: [id number]
--- NOTE | 2021-02-16 14:00 | P.PNIM_ITS ---
Subjective Subjective Date of Service: 02/16/21 Interval History: The patient was seen and evaluated this morning Laying in bed, improving overall for the last few days Abdominal pain improved significantly, tolerating diet well Denies any fever, chills or shortness of breath No reported other overnight events. Systemic review: No fever, chills to a but has generalized weakness No chest pain, palpitation No shortness of breath or coughing Abdominal pain significantly improved No urinary symptoms No any rash or wounds Physical Exam Vital Signs: Vital Signs: Last Vital Signs Temp 97.0 F 02/16/21 11:21 Pulse 63 02/16/21 11:21 Resp 18 02/16/21 11:21 BP 120/64 02/16/21 11:21 Pulse Ox 93 02/16/21 11:21 Body Mass Index 49.7 Const: Other: Constitutional : Alert with stimulation, disoriented, not in distress Neck : Normal inspection, Supple Cardiovascular : RRR, S1 S2, no lower extremity edema Respiratory : Good bilateral air entry, no crackles, wheezes or rhonchi Gastrointestinal: soft, lax, Normal bowel sounds, Non tender Skin : Warm/Dry, No rash Neurological : Alert & disoriented to, No focal deficit Objective Data Current Medications Generic Name Dose Route Start Last Admin Trade Name Freq PRN Reason Stop Dose Admin Acetaminophen 650 mg 02/12/21 23:34 02/15/21 04:12 Acetaminophen 325 Mg Tablet PO 650 mg Q6H PRN Administration Pain, Mild (Pain Scale 1-3) Albuterol/Ipratropium 3 ml 02/12/21 23:34 Albuterol/Iprat 2.5/0.5mg 3 Ml Ampul.Neb INHALE RQ4H PRN Shortness of Breath/Wheezing Amlodipine Besylate 10 mg 02/12/21 23:34 02/15/21 20:29 Amlodipine Besylate 10 Mg Tablet PO 10 mg BEDTIME ELVIE Administration Protocol Atorvastatin Calcium 80 mg 02/12/21 23:34 02/15/21 20:32 Atorvastatin Calcium 80 Mg Tablet PO 80 mg BEDTIME ELVIE Administration Bupropion HCl 300 mg 02/13/21 09:00 02/16/21 07:35 Bupropion Hcl Xl 300 Mg Tab.Er.24h PO 300 mg DAILY ELVIE Administration Carvedilol 25 mg 02/12/21 23:34 02/16/21 07:35 Carvedilol 25 Mg Tablet PO 25 mg BIDWM ELVIE Administration Protocol Clopidogrel Bisulfate 75 mg 02/16/21 09:00 02/16/21 07:35 Clopidogrel Bisulfate 75 Mg Tablet PO 75 mg DAILY ELVIE Administration Docusate Sodium 100 mg 02/12/21 23:34 Docusate Sodium 100 Mg Capsule PO DAILY PRN Constipation Fluticasone Propionate 2 spray 02/13/21 09:00 02/16/21 07:36 Fluticasone Propionate Nasal 16 Gm [place] NOSTRIL-B 2 spray DAILY ELVIE Administration Fluticasone/Vilanterol 1 puff 02/13/21 08:00 02/16/21 07:44 Fluticasone/Vilanterol 100/25 Blst.W.Dev INHALE 1 puff RDAILY ELVIE Administration Furosemide 40 mg 02/16/21 09:00 02/16/21 07:35 Furosemide 40 Mg Tablet PO 40 mg DAILY ELVIE Administration Protocol Heparin Sodium (Porcine) 5,000 unit 02/13/21 14:00 02/16/21 13:56 Heparin Sodium,Porcine 5,000 Unit/Ml Vial SUBCUT 5,000 unit Q8H ELVIE Administration Metronidazole 500 mg in 100 mls @ 100 mls/hr 02/12/21 22:30 02/16/21 13:56 Flagyl IV 100 mls/hr Q8H ELVIE Administration Ceftriaxone Sodium 1 gm/ 50 mls @ 100 mls/hr 02/13/21 18:00 02/15/21 18:23 Sodium Chloride IV Infused Q24H ELVIE Infusion Insulin Human Lispro 0 unit 02/13/21 11:30 02/16/21 11:31 Insulin Lispro 100 Unit/Ml 3 Ml Vial SUBCUT 2 unit QIDACHS ELVIE Administration Protocol Omeprazole 20 mg 02/16/21 09:00 02/16/21 07:36 Omeprazole 20 Mg Capsule.Dr PO 20 mg DAILY ELVIE Administration Ondansetron HCl 4 mg 02/12/21 23:34 02/13/21 16:56 Ondansetron Hcl 4 Mg/2 Ml Vial IVPUSH 4 mg Q8H PRN Administration Nausea and Vomiting Pharmacy Consult 1 each 02/12/21 15:31 Consult Rx Perform Med Rec MISCELLANE ONCE PRN Consult order Pharmacy Consult 1 each 02/13/21 05:48 Consult Rx Vancomycin Dosing MISCELLANE DAILY PRN Consult order Sodium Chloride 3 ml 02/13/21 00:00 02/16/21 07:35 0.9 % Sodium Chloride Flush 3 Ml Syringe IVFLUSH 3 ml QSHIFT ELVIE Administration Tiotropium [place] 1 puff 02/13/21 08:00 02/16/21 07:44 Tiotropium [place] 18 Mcg Cap.W.Dev INHALE 1 puff RDAILY ELVIE Administration Vitamin D 25 mcg 02/13/21 09:00 02/16/21 07:35 Cholecalciferol (Vitamin D3) 25 Mcg Tablet PO 25 mcg DAILY ELVIE Administration Labs CBC & Chem 7: 02/16/21 06:42 02/16/21 06:42 Labs: Laboratory Results - last 24 hr 02/15/21 02/15/21 02/16/21 15:38 20:27 06:42 WBC RBC Hgb Hct MCV MCH MCHC RDW Plt Count MPV Absolute Nucleated RBC Nucleated RBC % (auto) Neutrophils % (Manual) Band Neutrophils % Lymphocytes % (Manual) Monocytes % (Manual) Eosinophils % (Manual) Abs Neuts (Manual) Lymphocytes # (Manual) Monocytes # (Manual) Eosinophils # (Manual) Platelet Estimate Plt Morphology Comment RBC Morphology Ovalocytes Acanthocytes (Spur) Sodium Potassium Chloride Carbon Dioxide Anion Gap BUN Creatinine Estim Creat Clear Calc Estimated GFR POC Glucose 109 220 H Random Glucose Calcium Vancomycin Trough < 3.0 L 02/16/21 02/16/21 02/16/21 06:42 06:42 07:05 WBC 11.9 H RBC 4.04 L Hgb 10.7 L Hct 33.2 L MCV 82.2 MCH 26.5 L MCHC 32.2 RDW 13.6 Plt Count 187 MPV 10.8 Absolute Nucleated RBC 0.000 Nucleated RBC % (auto) 0.0 Neutrophils % (Manual) 74 H Band Neutrophils % 5 Lymphocytes % (Manual) 10 L Monocytes % (Manual) 10 Eosinophils % (Manual) 1 Abs Neuts (Manual) 9.4 H Lymphocytes # (Manual) 1.2 Monocytes # (Manual) 1.2 Eosinophils # (Manual) 0.1 Platelet Estimate NORMAL Plt Morphology Comment NORM RBC Morphology NOTED Ovalocytes 1+ (5-14) Acanthocytes (Spur) 3+ (>5) Sodium 141 Potassium 3.3 Chloride 106 Carbon Dioxide 25 Anion Gap 13 BUN 21 H Creatinine 1.20 Estim Creat Clear Calc 85.0 Estimated GFR > 60 POC Glucose 160 H Random Glucose 171 H Calcium 8.6 Vancomycin Trough 02/16/21 10:57 WBC RBC Hgb Hct MCV MCH MCHC RDW Plt Count MPV Absolute Nucleated RBC Nucleated RBC % (auto) Neutrophils % (Manual) Band Neutrophils % Lymphocytes % (Manual) Monocytes % (Manual) Eosinophils % (Manual) Abs Neuts (Manual) Lymphocytes # (Manual) Monocytes # (Manual) Eosinophils # (Manual) Platelet Estimate Plt Morphology Comment RBC Morphology Ovalocytes Acanthocytes (Spur) Sodium Potassium Chloride Carbon Dioxide Anion Gap BUN Creatinine Estim Creat Clear Calc Estimated GFR POC Glucose 197 H Random Glucose Calcium Vancomycin Trough Quality Stroke Does the patient have a stroke diagnosis?: No VTE Prior VTE?: No VTE Risk Level:: Medical - moderate - high VTE Device Contraindication: N/A - Device Ordered VTE Drug Contraindication: N/A - Med Ordered Assessment and Plan (1) Sepsis: Status: Acute Assessment and Plan: 60M presented with back pain, found to have sepsis due to diverticulitis with microperforatoin complciated by acute hypoxic respiraotry failure from pnu emonia, MELISSA, delerium severe sepsis, resolved 2/2 acute diverticulitis with micro perforation continue ceftriaxone, Flagyl Discontinue vancomycin Surgery input appreciated Advance to full liquids Discontinue IV fluids acute hypoxic respiratory failure 2/2 Pneumonia Wean oxygen as tolerated Continue antibiotic treatment gram-positive bacteremia Blood culture growing Streptococcus intermedius Continue treatment with IV ceftriaxone for total of 2 weeks D5/14 Wean oxygen down as tolerated ID evaluation appreciated, 2 weeks of IV ceftriaxone Midline placed acute delirium due to opioid dependence with withdrawal addiction team input appreciated continue Suboxone once the patient asked for it diabetes insulin chronic diastolic CHF Restart home does Lasix acute kidney injury Resolved DVT prophylaxis with heparin
--- NOTE | 2021-02-16 14:08 | PC.RT ---
Spoke with Patient about bringing in home CPAP machine. Said he does not wear every night. He does not have family to deliver machine. Claims he will be okay with out CPAP. If patient requires V60 will be set up for him, with Rt settings. Since MD unaware of home CPAP settings.
--- NOTE | 2021-02-16 14:59 | MHC.CM.PN ---
Male 60 DX CAP MELISSA HF DP is to [facility] Friday. He will need 2 weeks of IV ABX. S transport. CM will follow.
[2021-02-16 16:16] LABS: Glucose, Whole Blood 171 mg/dL (60-115)
[2021-02-16] MEDS: cefTRIAXone sodium 1 GM in 0.9 % Sodium Chloride 50 ML IV (16:38)
[2021-02-16 20:04] LABS: Glucose, Whole Blood 171 mg/dL (60-115)
[2021-02-16] MEDS: Atorvastatin Calcium 80 MG TABLET PO (20:52)
[2021-02-16] MEDS: amLODIPine Besylate 10 MG TABLET PO (20:52)
[2021-02-17] VITALS (10 sets, daily range): BP systolic 100–171; BP diastolic 52–81; PULSE 61–75; RESP 16–22; TEMP 36.6–37.3; O2SAT 94–99; BMI 48.4
[2021-02-17 01:26] LABS: Glucose, Whole Blood 168 mg/dL (60-115)
[2021-02-17] MEDS: Heparin Sodium,Porcine 5,000 UNIT/ML VIAL 5000 UNIT SUBCUT ×3 (06:33→21:13)
[2021-02-17] MEDS: metroNIDAZOLE/NS 500 MG/100 ML PIGGYBACK 100 MG IV (06:33)
[2021-02-17 07:14] LABS: Glucose, Whole Blood 164 mg/dL (60-115)
[2021-02-17] MEDS: 0.9 % Sodium Chloride Flush 3 ML SYRINGE IVFLUSH ×3 (07:41→21:13)
[2021-02-17] MEDS: Insulin Lispro 100 UNIT/ML 3 ML VIAL SUBCUT ×3 (07:41→21:16)
[2021-02-17] MEDS: carvediloL 25 MG TABLET PO ×2 (07:46→16:04)
[2021-02-17] MEDS: Furosemide 40 MG TABLET PO (07:46)
[2021-02-17] MEDS: Clopidogrel Bisulfate 75 MG TABLET PO (07:46)
[2021-02-17] MEDS: buPROPion HCl XL 300 MG TAB.ER.24H PO (07:46)
[2021-02-17] MEDS: Cholecalciferol (Vitamin D3) 25 MCG TABLET PO (07:46)
[2021-02-17] MEDS: Omeprazole 20 MG CAPSULE.DR PO (07:46)
[2021-02-17] MEDS: Fluticasone/Vilanterol 100/25 BLST.W.DEV 1 PUFF INHALE (08:17)
--- NOTE | 2021-02-17 09:13 | PM.PNGS ---
Subjective Subjective Date of Service: 02/17/21 Interval history: Mr. Meier feels improved with decreased abdominal pain. He is requesting increased food; no BM yet. Tolerating clear liquids. Physical Exam Vital Signs: Vital Signs: Last Vital Signs Temp 98.5 F 02/17/21 07:41 Pulse 64 02/17/21 07:41 Resp 16 02/17/21 07:41 BP 171/81 H 02/17/21 07:41 Pulse Ox 96 02/17/21 07:41 Body Mass Index 48.4 Const: General: cooperative, comfortable and no acute distress Resp: Effort & Inspection: normal respiratory effort GI: Other: distended Palpation (GI): Soft to palpation, nontender, no guarding and not rigid Percussion: Yes normal to percussion Skin: General skin exam: no rashes or lesions noted Extrem: General: No edema Progress Note: A&P Assessment and plan (1) Diverticulitis: Status: Acute Assessment and Plan: clinically resolving no pain or tenderness no fever WBC slightly elevated ok to advance diet soft low residue continue Ceftriaxone, Flagyl has other medical issues ongoing - opioid abuse, COPD Fall Risk Details Current Medications: Current Medications Generic Name Dose Route Start Last Admin Trade Name Freq PRN Reason Stop Dose Admin Acetaminophen 650 mg 02/12/21 23:34 02/15/21 04:12 Acetaminophen 325 Mg Tablet PO 650 mg Q6H PRN Administration Pain, Mild (Pain Scale 1-3) Albuterol/Ipratropium 3 ml 02/12/21 23:34 Albuterol/Iprat 2.5/0.5mg 3 Ml Ampul.Neb INHALE RQ4H PRN Shortness of Breath/Wheezing Amlodipine Besylate 10 mg 02/12/21 23:34 02/16/21 20:52 Amlodipine Besylate 10 Mg Tablet PO 10 mg BEDTIME ELVIE Administration Protocol Atorvastatin Calcium 80 mg 02/12/21 23:34 02/16/21 20:52 Atorvastatin Calcium 80 Mg Tablet PO 80 mg BEDTIME ELVIE Administration Bupropion HCl 300 mg 02/13/21 09:00 02/17/21 07:46 Bupropion Hcl Xl 300 Mg Tab.Er.24h PO 300 mg DAILY ELVIE Administration Carvedilol 25 mg 02/12/21 23:34 02/17/21 07:46 Carvedilol 25 Mg Tablet PO 25 mg BIDWM ELVIE Administration Protocol Clopidogrel Bisulfate 75 mg 02/16/21 09:00 02/17/21 07:46 Clopidogrel Bisulfate 75 Mg Tablet PO 75 mg DAILY ELVIE Administration Docusate Sodium 100 mg 02/12/21 23:34 Docusate Sodium 100 Mg Capsule PO DAILY PRN Constipation Fluticasone Propionate 2 spray 02/13/21 09:00 02/17/21 07:50 Fluticasone Propionate Nasal 16 Gm [place] NOSTRIL-B Not Given DAILY ELVIE Fluticasone/Vilanterol 1 puff 02/13/21 08:00 02/17/21 08:17 Fluticasone/Vilanterol 100/25 Blst.W.Dev INHALE 1 puff RDAILY ELVIE Administration Furosemide 40 mg 02/16/21 09:00 02/17/21 07:46 Furosemide 40 Mg Tablet PO 40 mg DAILY ELVIE Administration Protocol Heparin Sodium (Porcine) 5,000 unit 02/13/21 14:00 02/17/21 06:33 Heparin Sodium,Porcine 5,000 Unit/Ml Vial SUBCUT 5,000 unit Q8H ELVIE Administration Metronidazole 500 mg in 100 mls @ 100 mls/hr 02/12/21 22:30 02/17/21 07:46 Flagyl IV Infused Q8H ELVIE Infusion Ceftriaxone Sodium 1 gm/ 50 mls @ 100 mls/hr 02/13/21 18:00 02/16/21 17:55 Sodium Chloride IV Infused Q24H ELVIE Infusion Insulin Human Lispro 0 unit 02/13/21 11:30 02/17/21 07:41 Insulin Lispro 100 Unit/Ml 3 Ml Vial SUBCUT 2 unit QIDACHS ELVIE Administration Protocol Omeprazole 20 mg 02/16/21 09:00 02/17/21 07:46 Omeprazole 20 Mg Capsule. PO 20 mg DAILY ELVIE Administration Ondansetron HCl 4 mg 02/12/21 23:34 02/13/21 16:56 Ondansetron Hcl 4 Mg/2 Ml Vial IVPUSH 4 mg Q8H PRN Administration Nausea and Vomiting Pharmacy Consult 1 each 02/12/21 15:31 Consult Rx Perform Med Rec MISCELLANE ONCE PRN Consult order Pharmacy Consult 1 each 02/13/21 05:48 Consult Rx Vancomycin Dosing MISCELLANE DAILY PRN Consult order Sodium Chloride 3 ml 02/13/21 00:00 02/17/21 07:41 0.9 % Sodium Chloride Flush 3 Ml Syringe IVFLUSH 3 ml QSHIFT ELVIE Administration Tiotropium [place] 1 puff 02/13/21 08:00 02/17/21 08:17 Tiotropium [place] 18 Mcg Cap.W.Dev INHALE 1 puff RDAILY ELVIE Administration Vitamin D 25 mcg 02/13/21 09:00 02/17/21 07:46 Cholecalciferol (Vitamin D3) 25 Mcg Tablet PO 25 mcg DAILY ELVIE Administration Time Spent With Patient Time: Total time spent is greater than 50% in coordination of care (as documented) at patient's floor/unit and/or counseling patient: Time with patient: 15 - 24 minutes Procedures Date of Service Date of Service: 02/17/21 Quality Stroke Does the patient have a stroke diagnosis?: No VTE Prior VTE?: No VTE Risk Level:: Medical - moderate - high VTE Device Contraindication: N/A - Device Ordered VTE Drug Contraindication: N/A - Med Ordered
[2021-02-17 11:06] LABS: Glucose, Whole Blood 188 mg/dL (60-115)
--- NOTE | 2021-02-17 11:44 | HO.PM.IMPN ---
Subjective Subjective Date of Service: 02/17/21 Interval History: The patient was seen and evaluated this morning Laying in bed, improving overall for the last few days Abdominal pain improved significantly, tolerating diet Denies any fever, chills or shortness of breath No reported other overnight events. Systemic review: No fever, chills to a but has generalized weakness No chest pain, palpitation No shortness of breath or coughing Abdominal pain significantly improved No urinary symptoms No any rash or wounds Physical Exam Vital Signs: Vital Signs: Last Vital Signs Temp 98.1 F 02/17/21 11:31 Pulse 61 02/17/21 11:31 Resp 18 02/17/21 11:31 BP 132/72 02/17/21 11:31 Pulse Ox 95 02/17/21 11:31 Body Mass Index 48.4 Const: Other: Constitutional : Alert with stimulation, disoriented, not in distress Neck : Normal inspection, Supple Cardiovascular : RRR, S1 S2, no lower extremity edema Respiratory : Good bilateral air entry, no crackles, wheezes or rhonchi Gastrointestinal: soft, lax, Normal bowel sounds, Non tender Skin : Warm/Dry, No rash Neurological : Alert & disoriented to, No focal deficit Objective Data Current Medications Generic Name Dose Route Start Last Admin Trade Name Freq PRN Reason Stop Dose Admin Acetaminophen 650 mg 02/12/21 23:34 02/15/21 04:12 Acetaminophen 325 Mg Tablet PO 650 mg Q6H PRN Administration Pain, Mild (Pain Scale 1-3) Albuterol/Ipratropium 3 ml 02/12/21 23:34 Albuterol/Iprat 2.5/0.5mg 3 Ml Ampul.Neb INHALE RQ4H PRN Shortness of Breath/Wheezing Amlodipine Besylate 10 mg 02/12/21 23:34 02/16/21 20:52 Amlodipine Besylate 10 Mg Tablet PO 10 mg BEDTIME ELVIE Administration Protocol Atorvastatin Calcium 80 mg 02/12/21 23:34 02/16/21 20:52 Atorvastatin Calcium 80 Mg Tablet PO 80 mg BEDTIME ELVIE Administration Bupropion HCl 300 mg 02/13/21 09:00 02/17/21 07:46 Bupropion Hcl Xl 300 Mg Tab.Er.24h PO 300 mg DAILY ELVIE Administration Carvedilol 25 mg 02/12/21 23:34 02/17/21 07:46 Carvedilol 25 Mg Tablet PO 25 mg BIDWM ELVIE Administration Protocol Clopidogrel Bisulfate 75 mg 02/16/21 09:00 02/17/21 07:46 Clopidogrel Bisulfate 75 Mg Tablet PO 75 mg DAILY ELVIE Administration Docusate Sodium 100 mg 02/12/21 23:34 Docusate Sodium 100 Mg Capsule PO DAILY PRN Constipation Fluticasone Propionate 2 spray 02/13/21 09:00 02/17/21 07:50 Fluticasone Propionate Nasal 16 Gm [place] NOSTRIL-B Not Given DAILY ELVIE Fluticasone/Vilanterol 1 puff 02/13/21 08:00 02/17/21 08:17 Fluticasone/Vilanterol 100/25 Blst.W.Dev INHALE 1 puff RDAILY ELVIE Administration Furosemide 40 mg 02/16/21 09:00 02/17/21 07:46 Furosemide 40 Mg Tablet PO 40 mg DAILY ELVIE Administration Protocol Heparin Sodium (Porcine) 5,000 unit 02/13/21 14:00 02/17/21 06:33 Heparin Sodium,Porcine 5,000 Unit/Ml Vial SUBCUT 5,000 unit Q8H ELVIE Administration Metronidazole 500 mg in 100 mls @ 100 mls/hr 02/12/21 22:30 02/17/21 07:46 Flagyl IV Infused Q8H ELVIE Infusion Ceftriaxone Sodium 1 gm/ 50 mls @ 100 mls/hr 02/13/21 18:00 02/16/21 17:55 Sodium Chloride IV Infused Q24H ELVIE Infusion Insulin Human Lispro 0 unit 02/13/21 11:30 02/17/21 11:43 Insulin Lispro 100 Unit/Ml 3 Ml Vial SUBCUT 2 unit QIDACHS ELVIE Administration Protocol Omeprazole 20 mg 02/16/21 09:00 02/17/21 07:46 Omeprazole 20 Mg Capsule.Dr PO 20 mg DAILY ELVIE Administration Ondansetron HCl 4 mg 02/12/21 23:34 02/13/21 16:56 Ondansetron Hcl 4 Mg/2 Ml Vial IVPUSH 4 mg Q8H PRN Administration Nausea and Vomiting Pharmacy Consult 1 each 02/12/21 15:31 Consult Rx Perform Med Rec MISCELLANE ONCE PRN Consult order Pharmacy Consult 1 each 02/13/21 05:48 Consult Rx Vancomycin Dosing MISCELLANE DAILY PRN Consult order Sodium Chloride 3 ml 02/13/21 00:00 02/17/21 07:41 0.9 % Sodium Chloride Flush 3 Ml Syringe IVFLUSH 3 ml QSHIFT ELVIE Administration Tiotropium [place] 1 puff 02/13/21 08:00 02/17/21 08:17 Tiotropium [place] 18 Mcg Cap.W.Dev INHALE 1 puff RDAILY ELVIE Administration Vitamin D 25 mcg 02/13/21 09:00 02/17/21 07:46 Cholecalciferol (Vitamin D3) 25 Mcg Tablet PO 25 mcg DAILY ELVIE Administration Labs CBC & Chem 7: 02/16/21 06:42 02/16/21 06:42 Labs: Laboratory Results - last 24 hr 02/16/21 02/16/21 02/17/21 16:08 20:00 01:22 POC Glucose 171 H 171 H 168 H 02/17/21 02/17/21 07:10 11:02 POC Glucose 164 H 188 H Quality Stroke Does the patient have a stroke diagnosis?: No VTE Prior VTE?: No VTE Risk Level:: Medical - moderate - high VTE Device Contraindication: N/A - Device Ordered VTE Drug Contraindication: N/A - Med Ordered Assessment and Plan (1) Sepsis: Status: Acute Assessment and Plan: 60M presented with back pain, found to have sepsis due to diverticulitis with microperforatoin complciated by acute hypoxic respiraotry failure from pnuemonia, MELISSA, delerium severe sepsis, resolved 2/2 acute diverticulitis with micro perforation continue ceftriaxone DC Flagyl Surgery input appreciated Advance to full liquids Discontinue IV fluids acute hypoxic respiratory failure, resolved 2/2 Pneumonia Wean oxygen as tolerated Continue antibiotic treatment gram-positive bacteremia Blood culture growing Streptococcus intermedius Continue treatment with IV ceftriaxone for total of 2 weeks D6/14 Wean oxygen down as tolerated ID evaluation appreciated, 2 weeks of IV ceftriaxone Midline placed acute delirium due to opioid dependence with withdrawal addiction team input appreciated continue Suboxone once the patient asked for it diabetes insulin chronic diastolic CHF Restart home does Lasix acute kidney injury Resolved DVT prophylaxis with heparin
[2021-02-17 16:30] LABS: Glucose, Whole Blood 123 mg/dL (60-115)
[2021-02-17] MEDS: cefTRIAXone sodium 1 GM in 0.9 % Sodium Chloride 50 ML IV (17:34)
[2021-02-17] MEDS: Docusate Sodium 100 MG CAPSULE PO (17:36)
--- NOTE | 2021-02-17 17:37 | PC.NURSE ---
Addendum entered by Bibi Brito RN 02/17/21 18:32: EKG reads NSR PT stating pain is getting better little by little appears relaxed at this time added flexeril - will admin when goes thru pharmacy Addendum entered by Bibi Brito RN 02/17/21 18:12: obtaining EKG Addendum entered by Bibi Brito RN 02/17/21 18:06: Reassessed pt pt stating feels a bit better Although States a 9/10 again for pain level - pt does seem more comfortable sitting at side of bed at this time. Will cont to reassess pain soon and pass along in RN report Original Note: Pt complaining of 9/10 right nonradiating chest pain. Started half way through meal. More tender with palpation. VSS NSR on tele. Pt tearing due to pain, instructed pt to sit up. MD to room to also assess pt. After assessment one time order 3mg IV morphine admin. Will reassess pain. Aso gave pt prn colace as pt cant recall last BM - not reporting any stomach discomfort at this time but this was 2nd meal pt had since resumed normal diet. will reassess.
[2021-02-17] MEDS: Morphine Sulfate 4 MG/ML CARTRIDGE 3 MG IVPUSH (17:43)
--- NOTE | 2021-02-17 18:19 | ECG_ITS ---
Test Reason : chest pain Blood Pressure : / mmHG Vent. Rate : 066 BPM Atrial Rate : 066 BPM P-R Int : 142 ms QRS Dur : 100 ms QT Int : 434 ms P-R-T Axes : 041 015 054 degrees QTc Int : 454 ms Normal sinus rhythm Normal ECG When compared with ECG of 12-FEB-2021 15:47, No significant change was found Referred By: Hermelindo Packer Electronically Signed By:Rafael Rosario
[2021-02-17] MEDS: Cyclobenzaprine HCl 5 MG TABLET PO (20:20)
[2021-02-17 20:50] LABS: Glucose, Whole Blood 218 mg/dL (60-115)
[2021-02-17] MEDS: Atorvastatin Calcium 80 MG TABLET PO (21:13)
[2021-02-17] MEDS: amLODIPine Besylate 10 MG TABLET PO (21:13)
[2021-02-18] VITALS (9 sets, daily range): BP systolic 131–157; BP diastolic 68–83; PULSE 62–78; RESP 18–20; TEMP 36.3–37.2; O2SAT 95–98; BMI 48.0
[2021-02-18] MEDS: Heparin Sodium,Porcine 5,000 UNIT/ML VIAL 5000 UNIT SUBCUT ×3 (06:36→21:19)
[2021-02-18 06:42] LABS: Anion Gap 13 (12-20); Blood Urea Nitrogen 18 mg/dL (9-16); Calcium 8.6 mg/dL (8.4-10.2); Carbon Dioxide 26 mmol/L (22-29); Chloride 106 mmol/L (96-108); Creatinine Clr Calc Pharmacy 86.1; Estimated Glomerular Filt Rate > 60; Glucose Random 176 mg/dL (60-115); Potassium 3.4 mmol/L (3.3-5.1); Sodium 142 mmol/L (135-145)
[2021-02-18 07:25] LABS: Glucose, Whole Blood 164 mg/dL (60-115)
[2021-02-18] MEDS: Insulin Lispro 100 UNIT/ML 3 ML VIAL SUBCUT ×4 (07:25→21:19)
[2021-02-18] MEDS: 0.9 % Sodium Chloride Flush 3 ML SYRINGE IVFLUSH ×3 (07:26→21:21)
[2021-02-18] MEDS: Fluticasone/Vilanterol 100/25 BLST.W.DEV 1 PUFF INHALE (08:30)
[2021-02-18] MEDS: Furosemide 40 MG TABLET PO (10:42)
[2021-02-18] MEDS: Omeprazole 20 MG CAPSULE.DR PO (10:42)
[2021-02-18] MEDS: carvediloL 25 MG TABLET PO ×2 (10:42→16:56)
[2021-02-18] MEDS: buPROPion HCl XL 300 MG TAB.ER.24H PO (10:43)
[2021-02-18] MEDS: Clopidogrel Bisulfate 75 MG TABLET PO (10:43)
[2021-02-18] MEDS: Cholecalciferol (Vitamin D3) 25 MCG TABLET PO (10:43)
[2021-02-18 11:21] LABS: Glucose, Whole Blood 208 mg/dL (60-115)
--- NOTE | 2021-02-18 14:15 | HO.PM.IMPN ---
Subjective Subjective Date of Service: 02/18/21 Interval History: The patient was seen and evaluated this morning Laying in bed, improving overall Abdominal pain improved significantly tolerating diet Denies any fever, chills or shortness of breath No reported other overnight events. Systemic review: No fever, chills to a but has generalized weakness No chest pain, palpitation No shortness of breath or coughing Abdominal pain significantly improved No urinary symptoms No any rash or wounds Physical Exam Vital Signs: Vital Signs: Last Vital Signs Temp 97.3 F 02/18/21 11:33 Pulse 63 02/18/21 11:33 Resp 20 02/18/21 11:33 BP 132/68 02/18/21 11:33 Pulse Ox 97 02/18/21 11:33 Body Mass Index 48.0 Const: Other: Constitutional : Alert with stimulation, disoriented, not in distress Neck : Normal inspection, Supple Cardiovascular : RRR, S1 S2, no lower extremity edema Respiratory : Good bilateral air entry, no crackles, wheezes or rhonchi Gastrointestinal: soft, lax, Normal bowel sounds, Non tender Skin : Warm/Dry, No rash Neurological : Alert & disoriented to, No focal deficit Objective Data Current Medications Generic Name Dose Route Start Last Admin Trade Name Freq PRN Reason Stop Dose Admin Acetaminophen 650 mg 02/12/21 23:34 02/15/21 04:12 Acetaminophen 325 Mg Tablet PO 650 mg Q6H PRN Administration Pain, Mild (Pain Scale 1-3) Albuterol/Ipratropium 3 ml 02/12/21 23:34 Albuterol/Iprat 2.5/0.5mg 3 Ml Ampul.Neb INHALE RQ4H PRN Shortness of Breath/Wheezing Amlodipine Besylate 10 mg 02/12/21 23:34 02/17/21 21:13 Amlodipine Besylate 10 Mg Tablet PO 10 mg BEDTIME ELVIE Administration Protocol Atorvastatin Calcium 80 mg 02/12/21 23:34 02/17/21 21:13 Atorvastatin Calcium 80 Mg Tablet PO 80 mg BEDTIME ELVIE Administration Bupropion HCl 300 mg 02/13/21 09:00 02/18/21 10:43 Bupropion Hcl Xl 300 Mg Tab.Er.24h PO 300 mg DAILY ELVIE Administration Carvedilol 25 mg 02/12/21 23:34 02/18/21 10:42 Carvedilol 25 Mg Tablet PO 25 mg BIDWM ELVIE Administration Protocol Clopidogrel Bisulfate 75 mg 02/16/21 09:00 02/18/21 10:43 Clopidogrel Bisulfate 75 Mg Tablet PO 75 mg DAILY ELVIE Administration Docusate Sodium 100 mg 02/12/21 23:34 02/17/21 17:36 Docusate Sodium 100 Mg Capsule PO 100 mg DAILY PRN Administration Constipation Fluticasone Propionate 2 spray 02/13/21 09:00 02/18/21 10:43 Fluticasone Propionate Nasal 16 Gm [place] NOSTRIL-B Not Given DAILY ELVIE Fluticasone/Vilanterol 1 puff 02/13/21 08:00 02/18/21 08:30 Fluticasone/Vilanterol 100/25 Blst.W.Dev INHALE 1 puff RDAILY ELVIE Administration Furosemide 40 mg 02/16/21 09:00 02/18/21 10:42 Furosemide 40 Mg Tablet PO 40 mg DAILY ELVIE Administration Protocol Heparin Sodium (Porcine) 5,000 unit 02/13/21 14:00 02/18/21 06:36 Heparin Sodium,Porcine 5,000 Unit/Ml Vial SUBCUT 5,000 unit Q8H ELVIE Administration Ceftriaxone Sodium 1 gm/ 50 mls @ 100 mls/hr 02/13/21 18:00 02/17/21 18:04 Sodium Chloride IV Infused Q24H ELVIE Infusion Insulin Human Lispro 0 unit 02/13/21 11:30 02/18/21 11:33 Insulin Lispro 100 Unit/Ml 3 Ml Vial SUBCUT 4 unit QIDACHS [facility] Administration Protocol Omeprazole 20 mg 02/16/21 09:00 02/18/21 10:42 Omeprazole 20 Mg Capsule.Dr PO 20 mg DAILY ELVIE Administration Ondansetron HCl 4 mg 02/12/21 23:34 02/13/21 16:56 Ondansetron Hcl 4 Mg/2 Ml Vial IVPUSH 4 mg Q8H PRN Administration Nausea and Vomiting Pharmacy Consult 1 each 02/12/21 15:31 Consult Rx Perform Med Rec MISCELLANE ONCE PRN Consult order Pharmacy Consult 1 each 02/13/21 05:48 Consult Rx Vancomycin Dosing MISCELLANE DAILY PRN Consult order Sodium Chloride 3 ml 02/13/21 00:00 02/18/21 07:26 0.9 % Sodium Chloride Flush 3 Ml Syringe IVFLUSH 3 ml QSHIFT ELVIE Administration Tiotropium [place] 1 puff 02/13/21 08:00 02/18/21 08:30 Tiotropium [place] 18 Mcg Cap.W.Dev INHALE 1 puff RDAILY ELVIE Administration Vitamin D 25 mcg 02/13/21 09:00 02/18/21 10:43 Cholecalciferol (Vitamin D3) 25 Mcg Tablet PO 25 mcg DAILY ELVIE Administration Labs CBC & Chem 7: 02/16/21 06:42 02/18/21 04:55 Labs: Laboratory Results - last 24 hr 02/17/21 02/17/21 02/18/21 16:21 20:45 04:55 Sodium 142 Potassium 3.4 Chloride 106 Carbon Dioxide 26 Anion Gap 13 BUN 18 H Creatinine 1.16 Estim Creat Clear Calc 86.1 Estimated GFR > 60 POC Glucose 123 H 218 H Random Glucose 176 H Calcium 8.6 02/18/21 02/18/21 07:21 11:13 Sodium Potassium Chloride Carbon Dioxide Anion Gap BUN Creatinine Estim Creat Clear Calc Estimated GFR POC Glucose 164 H 208 H Random Glucose Calcium Microbiology Microbiology Results: Microbiology 02/13/21 06:33 Blood Culture - Final Blood - Venous No growth after 5 days. 02/13/21 06:33 Blood Culture - Final Blood - Venous No growth after 5 days. Quality Stroke Does the patient have a stroke diagnosis?: No VTE Prior VTE?: No VTE Risk Level:: Medical - moderate - high VTE Device Contraindication: N/A - Device Ordered VTE Drug Contraindication: N/A - Med Ordered Assessment and Plan (1) Sepsis: Status: Acute Assessment and Plan: 60M presented with back pain, found to have sepsis due to diverticulitis with microperforatoin complciated by acute hypoxic respiraotry failure from pnuemonia, MELISSA, delerium severe sepsis, resolved 2/2 acute diverticulitis with micro perforation continue ceftriaxone D7/14 DC Flagyl Surgery input appreciated Advance to regular diet Discontinue IV fluids acute hypoxic respiratory failure, resolved 2/2 Pneumonia Wean oxygen as tolerated Continue antibiotic treatment gram-positive bacteremia Blood culture growing Streptococcus intermedius Echo negative for any vegetations Continue treatment with IV ceftriaxone for total of 2 weeks D7/14 Wean oxygen down as tolerated ID evaluation appreciated, 2 weeks of IV ceftriaxone Midline placed acute delirium due to opioid dependence with withdrawal addiction team input appreciated continue Suboxone once the patient asked for it diabetes insulin chronic diastolic CHF Restart home does Lasix acute kidney injury Resolved DVT prophylaxis with heparin
[2021-02-18 16:24] LABS: Glucose, Whole Blood 165 mg/dL (60-115)
[2021-02-18] MEDS: cefTRIAXone sodium 1 GM in 0.9 % Sodium Chloride 50 ML IV (17:57)
[2021-02-18 20:43] LABS: Glucose, Whole Blood 158 mg/dL (60-115)
[2021-02-18] MEDS: amLODIPine Besylate 10 MG TABLET PO (21:18)
[2021-02-18] MEDS: Atorvastatin Calcium 80 MG TABLET PO (21:18)
[2021-02-19] VITALS: BP 138/71; PULSE 67; RESP 18; TEMP 36.9; O2SAT 96
[2021-02-19 03:31] VITALS: BP 147/80; PULSE 66; RESP 18; TEMP 36.8; O2SAT 97
[2021-02-19 05:47] VITALS: BMI 49.2
[2021-02-19] MEDS: Heparin Sodium,Porcine 5,000 UNIT/ML VIAL 5000 UNIT SUBCUT (05:58)
[2021-02-19 07:06] LABS: Glucose, Whole Blood 151 mg/dL (60-115)
[2021-02-19 07:08] VITALS: BP 138/66; PULSE 62; RESP 17; TEMP 36.3; O2SAT 96
[2021-02-19] MEDS: Fluticasone/Vilanterol 100/25 BLST.W.DEV 1 PUFF INHALE (07:39)
[2021-02-19 07:40] VITALS: PULSE 67; O2SAT 94
[2021-02-19] MEDS: Insulin Lispro 100 UNIT/ML 3 ML VIAL SUBCUT ×2 (07:52→11:26)
[2021-02-19] MEDS: 0.9 % Sodium Chloride Flush 3 ML SYRINGE IVFLUSH (07:53)
[2021-02-19] MEDS: Furosemide 40 MG TABLET PO (07:54)
[2021-02-19] MEDS: buPROPion HCl XL 300 MG TAB.ER.24H PO (07:55)
[2021-02-19] MEDS: Clopidogrel Bisulfate 75 MG TABLET PO (07:55)
[2021-02-19] MEDS: Cholecalciferol (Vitamin D3) 25 MCG TABLET PO (07:55)
[2021-02-19] MEDS: carvediloL 25 MG TABLET PO (07:55)
[2021-02-19] MEDS: Omeprazole 20 MG CAPSULE.DR PO (07:55)
--- NOTE | 2021-02-19 11:03 | P.DS_ITS ---
DS: Providers Provider Date of Service: 02/19/21 Date of admission: 02/12/21 20:59 Primary care physician: [facility] Consults: 02/12/21 23:34 Consult to Gastroenterology Routine Consulting Provider: Ryan Treadwell Reason for consultation: Anemia with positive occult 02/13/21 08:26 Consult to Nephrology Routine Consulting Provider: Tommy Villa Reason for consultation: dalila 02/13/21 11:54 Consult to General Surgery Routine Consulting Provider: Emre Stewart Reason for consultation: microperf diverticulitis 02/13/21 14:12 Addiction Medicine Routine Consulting Provider: Sasha Avendano Reason for consultation: opoioid dependence with withdrawl 02/14/21 08:55 Consult to Infectious Diseases Routine Consulting Provider: Yoly Borja Reason for consultation: Step Bacteremia for your kind eval DS: Diagnosis Discharge Diagnosis (1) Sepsis: Status: Acute (2) Streptococcal bacteremia: Status: Acute (3) Opioid use disorder, severe, dependence: Status: Acute (4) COPD (chronic obstructive pulmonary disease): Status: Acute (5) Acute respiratory failure with hypoxia: Status: Acute (6) Normocytic anemia: Status: Acute (7) Diverticulitis: Status: Acute (8) Acute renal failure: Status: Acute (9) Pneumonia: Status: Acute (10) Grade II diastolic dysfunction: Status: Acute Problem details: EF 55-60% (11) Opioid abuse: Status: Acute (12) Opioid withdrawal delirium, acute, hyperactive: Status: Acute DS: Medications Discharge Medications Home Medications: Home Medications Medication Instructions Recorded Confirmed Spiriva with HandiHaler 1 cap INHALATION DAILY 02/12/21 02/12/21 albuterol sulfate [ProAir HFA] 2 puff INHALATION Q4H PRN 02/12/21 02/12/21 amlodipine 10 mg PO QPM 02/12/21 02/12/21 buprenorphine-naloxone [Suboxone] 2 strip SUBLINGUAL DAILY 02/12/21 02/12/21 bupropion HCl 150 mg PO BID 02/12/21 02/12/21 calcium carbonate-vitamin D3 1 tab PO BID 02/12/21 02/12/21 [Oyster Shell Calcium-Vit D3] carvedilol 25 mg PO BID 02/12/21 02/12/21 cholecalciferol (vitamin D3) 1,000 unit PO DAILY 02/12/21 02/12/21 clopidogrel 75 mg PO DAILY 02/12/21 02/12/21 fluticasone propion-salmeterol 1 puff INHALATION BID 02/12/21 02/12/21 [Advair Diskus] fluticasone propionate 2 spray INTRANASAL DAILY 02/12/21 02/12/21 furosemide 40 mg PO DAILY 02/12/21 02/12/21 hydralazine 100 tab PO TID 02/12/21 02/12/21 isosorbide mononitrate 60 mg PO DAILY 02/12/21 02/12/21 losartan 100 mg PO DAILY 02/12/21 02/12/21 metformin 500 mg PO BID 02/12/21 02/12/21 nicotine (polacrilex) 1 ea PO Q2H PRN 02/12/21 02/12/21 omeprazole 20 mg PO DAILY 02/12/21 02/12/21 rosuvastatin 40 mg PO BEDTIME 02/12/21 02/12/21 spironolactone 25 mg PO BID 02/12/21 02/12/21 Previous Rx's Medication Instructions Recorded ceftriaxone 1 g IV Q24H 7 Days ea 02/19/21 DS: Summary Hospital Course Hospital Course: Admission note HPI This is a 60-year-old male with past medical history of HTN, type 2 diabetes, ABDOULAYE on CPAP, HLD, asthma, questionable history of CAD, ? CHF who presents to the hospital with complaints of back pain. Patient reports that his pain is localized to the right lower back radiating to the groin area, associated with chills, no fever, the pain is constant, 10/10, started 4-5 days ago, associated with nausea with no vomiting, no diarrhea or constipation. Patient is also complaining cough, shortness of breath, and phlegm production for the past few days. He denies any chest pain, no palpitations, she denies any urinary frequency urgency or dysuria. Denies any lower extremity edema. No orthopnea or PND. On arrival to the ED patient's vital significant for temp of 98?, heart rate of 63, respiratory rate of 18, blood pressure of 96/54, she and to satting 99% on 2 L of oxygen. O2 did drop on 2 L 80% of patient's O2 requirement increased to 5 L. For WBC count of 10.7, hemoglobin of 9.8 that dropped from 12.5 on 02/13, 14.2, INR of 1.2, sodium of 142, BUN of 61, creatinine of 3.19, AST of 54, ALT of 47, troponin of 4.5, BNP of 93, UA negative, extensive viral panel pending but negative for COVID, stool occult blood positive. EKG showed is normal sinus rhythm Chest CT shows 8 mm lung nodule in the area of ground-glass changes On my exam patient's abdomen was tender therefore I ordered a CT abdomen pelvis which showed diverticulitis with micro perforation. Patient will be admitted for further management Hospital course The patient was admitted to the hospital for sepsis 2/2 acute diverticulitis with micro perforation as confirmed by CT scan of the abdomen pelvis. In evaluated by surgery team who recommended no intervention and treatment with IV antibiotics and fluids. The patient pain improved and he was able to tolerate diet well. Treated with IV ceftriaxone, Flagyl and vancomycin. Antibiotics were reduced to ceftriaxone only as blood cultures came back positive for Streptococcus intermedius. Echocardiogram was negative for any vegetations. He was evaluated by infectious disease specialist who recommended to Finish total of 7 days of IV antibiotics in the hospital as a midline was placed to continue 7 more days at the facility. After that he will need 2 more weeks of doxycycline. He was noted to be in acute hypoxic respiratory failure secondary to community- acquired pneumonia. Treated with IV antibiotics with good response as he was weaned off the oxygen became able to ambulate freely on room air. Noticed to have acute kidney injury at time of presentation with elevated creatinine in which she improved back to baseline normal with IV fluids. In the 2nd day of his admission he developed acute delirium due to opioid dependence with withdrawal controlled with IV narcotics. Evaluated by addiction team with recommendation to continue Suboxone. To continue 1 week of IV ceftriaxone followed by 2 weeks of oral doxycycline. Time Spent with Patient Time attestation: Total time spent providing and/or coordinating discharge services: Discharge coordination time: Greater than 30 minutes Quality: Stroke Does the patient have a stroke diagnosis?: No Physical Exam Vital Signs: Vital Signs: Last Vital Signs Temp 97.4 F 02/19/21 07:08 Pulse 62 02/19/21 07:08 Resp 17 02/19/21 07:08 BP 138/66 02/19/21 07:08 Pulse Ox 96 02/19/21 07:08 Body Mass Index 49.2 Const: Other: Constitutional : Alert with stimulation, disoriented, not in distress Neck : Normal inspection, Supple Cardiovascular : RRR, S1 S2, no lower extremity edema Respiratory : Good bilateral air entry, no crackles, wheezes or rhonchi Gastrointestinal: soft, lax, Normal bowel sounds, Non tender Skin : Warm/Dry, No rash Neurological : Alert & disoriented to, No focal deficit DS: Data Data Completed and Pending Labs on day of discharge: Laboratory Results - last 24 hr 02/18/21 02/18/21 02/18/21 11:13 16:21 20:37 POC Glucose 208 H 165 H 158 H 02/19/21 06:56 POC Glucose 151 H Imaging Chest x-ray: Radiologist's impression: ITS Impressions Chest X-Ray 02/12/21 15:31 IMPRESSION: Unremarkable chest exam. Chest CT 02/12/21 16:32 IMPRESSION: No acute intrathoracic disease. 8 mm lung nodule in the area of groundglass change. According to the UPDATED 2017 Fleischner Society recommendations, the advised follow-up imaging for a single 6-8 mm solid nodule is: LOW RISK PATIENT: CT at 6-12 months, then consider CT at 18-24 months. HIGH RISK PATIENT: CT at 6-12 months, then at 18-24 months. Venous Duplex 02/12/21 17:44 IMPRESSION: There is surgery variation on color and spectral flow seen in the lower extremities normal color flow and spectral Doppler evaluation in both lower extremities. However no compression or augmentation technique was utilized hence DVT cannot be excluded. There is bilateral calf edema. Abdomen/Pelvis CT 02/12/21 20:59 IMPRESSION: Focal diverticulitis of the distal descending/proximal sigmoid colon. There is microperforation with small collection of gas in the pericolonic fat but no abscess. This critical result was discussed with Dr. Palma on 02/12/2021, 10:20 PM and it was ascertained that the content and urgency of the report was understood at the time of direct communication. Chest X-Ray 02/13/21 12:25 IMPRESSION: No free air seen. CT scan - chest: Radiologist's impression: ITS Impressions Chest X-Ray 02/12/21 15:31 IMPRESSION: Unremarkable chest exam. Chest CT 02/12/21 16:32 IMPRESSION: No acute intrathoracic disease. 8 mm lung nodule in the area of groundglass change. According to the UPDATED 2017 Fleischner Society recommendations, the advised follow-up imaging for a single 6-8 mm solid nodule is: LOW RISK PATIENT: CT at 6-12 months, then consider CT at 18-24 months. HIGH RISK PATIENT: CT at 6-12 months, then at 18-24 months. Venous Duplex 02/12/21 17:44 IMPRESSION: There is surgery variation on color and spectral flow seen in the lower extremities normal color flow and spectral Doppler evaluation in both lower extremities. However no compression or augmentation technique was utilized hence DVT cannot be excluded. There is bilateral calf edema. Abdomen/Pelvis CT 02/12/21 20:59 IMPRESSION: Focal diverticulitis of the distal descending/proximal sigmoid colon. There is microperforation with small collection of gas in the pericolonic fat but no abscess. This critical result was discussed with Dr. Palma on 02/12/2021, 10:20 PM and it was ascertained that the content and urgency of the report was understood at the time of direct communication. Chest X-Ray 02/13/21 12:25 IMPRESSION: No free air seen. Discharge Plan Discharge Patient Disposition: [facility] Discharge Diagnosis: Diverticulitis Streptococcus bacteremia Pneumonia Referrals: [facility] [Outside] - 1 Week Center,[facility] [Primary Care Provider] - 1 Week Discharge Medications: New ceftriaxone 1 gram Recon Soln 1 g IV Q24H 7 Days RF: 0 doxycycline monohydrate 100 mg capsule 100 mg PO BID 14 Days Qty: 28 RF: 0 Continued furosemide 40 mg tablet 40 mg PO DAILY RF: 0 metformin 500 mg tablet 500 mg PO BID RF: 0 bupropion HCl 150 mg tablet sustained-release 12 hr 150 mg PO BID RF: 0 fluticasone propion-salmeterol [Advair Diskus] 250-50 mcg/dose blister with device 1 puff inhalation BID RF: 0 carvedilol 25 mg tablet 25 mg PO BID RF: 0 nicotine (polacrilex) 2 mg gum 1 ea PO Q2H PRN (Reason: Nicotine Cravings) RF: 0 isosorbide mononitrate 30 mg tablet extended release 24 hr 60 mg PO DAILY RF: 0 clopidogrel 75 mg tablet 75 mg PO DAILY RF: 0 spironolactone 25 mg tablet 25 mg PO BID RF: 0 amlodipine 10 mg tablet 10 mg PO QPM RF: 0 hydralazine 100 mg tablet 100 tab PO TID RF: 0 omeprazole 20 mg capsule,delayed release(DR/EC) 20 mg PO DAILY RF: 0 albuterol sulfate [ProAir HFA] 90 mcg/actuation HFA aerosol inhaler 2 puff inhalation Q4H PRN (Reason: Wheezing) RF: 0 losartan 100 mg tablet 100 mg PO DAILY RF: 0 fluticasone propionate 50 mcg/actuation spray,suspension 2 spray intranasal DAILY RF: 0 rosuvastatin 40 mg tablet 40 mg PO BEDTIME RF: 0 Spiriva with HandiHaler 18 mcg capsule, w/inhalation device 1 cap inhalation DAILY RF: 0 cholecalciferol (vitamin D3) 25 mcg (1,000 unit) tablet 1,000 unit PO DAILY RF: 0 calcium carbonate-vitamin D3 [Oyster Shell Calcium-Vit D3] 500 mg(1,250mg) - 400 unit tablet 1 tab PO BID RF: 0 buprenorphine-naloxone [Suboxone] 8-2 mg film 2 strip sublingual DAILY RF: 0 Discharge Orders: Discharge Order (Routine); Ordered 02/19/21 Ordered By: Hermelindo Packer Diet: advance to usual diet Activity on Discharge: As tolerated Stand Alone Forms: Patient Portal Discharge page Care Plan Goals: Read below Health Concerns: Read below Plan of Treatment: You were admitted to the hospital for evaluation with abdominal pain. Found to have ended is of diverticulitise with a small perforation. You were evaluated by surgical team who recommended no surgery needed. Treated with IV antibiotics with good response as your blood cultures grew sensitive Streptococcus bacteria. Your noted to have acute kidney injury and evidence of pneumonia which both were treated and improved back to baseline. Assessment: We advise you to quit smoking and opioids Continue ceftriaxone for 7 more days To follow-up with your primary care as scheduled
[2021-02-19 11:14] VITALS: BP 157/93; PULSE 62; RESP 18; TEMP 36.4; O2SAT 98
[2021-02-19 11:14] LABS: Glucose, Whole Blood 163 mg/dL (60-115)
== END 2021-02-19 12:54 | disposition left against medical advice (07) | DRG 720 ==
LOC: HO.ED 18:09 → HO.IMC 21:40
PROVIDERS: Internal Medicine; Physician Assistant Medical; Admitting Provider Internal Medicine; Emergency Provider Emergency Medicine Emergency Medical Services; Visit Provider Student in an Organized Health Care Education/Training Program
DX: A40.8 Other streptococcal sepsis (principal); J96.01 Acute respiratory failure with hypoxia; R65.20 Severe sepsis without septic shock; N17.9 Acute kidney failure, unspecified; J18.9 Pneumonia, unspecified organism; I13.0 Hypertensive heart and chronic kidney disease with heart failure and stage 1 through stage 4 chronic kidney disease, or unspecified chronic kidney disease; E11.22 Type 2 diabetes mellitus with diabetic chronic kidney disease; K57.20 Diverticulitis of large intestine with perforation and abscess without bleeding; Z68.42 Body mass index [BMI] 45.0-49.9, adult; I50.32 Chronic diastolic (congestive) heart failure; E86.0 Dehydration; E66.9 Obesity, unspecified; F17.210 Nicotine dependence, cigarettes, uncomplicated; E78.5 Hyperlipidemia, unspecified; I25.10 Atherosclerotic heart disease of native coronary artery without angina pectoris; F11.23 Opioid dependence with withdrawal; Z20.822 Contact with and (suspected) exposure to COVID-19; G47.33 Obstructive sleep apnea (adult) (pediatric); N18.9 Chronic kidney disease, unspecified; Z88.0 Allergy status to penicillin; Z71.6 Tobacco abuse counseling; Z88.2 Allergy status to sulfonamides; Z79.02 Long term (current) use of antithrombotics/antiplatelets; Z79.52 Long term (current) use of systemic steroids; Z79.84 Long term (current) use of oral hypoglycemic drugs; Z79.899 Other long term (current) drug therapy
CPT/HCPCS: 0241U; 36410; 36415; 36600; 71045; 71250; 74176; 80048; 80053; 80202; 81001; 82272; 82607; 82728; 82746; 82947; 83605; 83615; 83735; 83880; 84145; 84484; 85007; 85025; 85027; 85610; 86140; 87040; 87077; 87186; 87205; 87633; 93005; 93306; 93970; 99284; C1758; J0456; J0696; J1170; J2060; J2270; J2405; J3370

== ENCOUNTER 2021-08-17 07:05 | Outpatient (REF) | payer MEDICAID, SELFPAY ==
--- NOTE | ~2021-08-17 | XR_ITS ---
EXAMINATION: XR KNEES STANDING, BILATERAL XR KNEE, RIGHT CLINICAL INFORMATION: Pain in unspecified knee. COMPARISON: XR right knee 07/21/2019. XR left knee 01/12/2018. TECHNIQUE: AP erect view of each knee is obtained. Lateral and sunrise views of the right knee are obtained. FINDINGS: RIGHT KNEE: There is no fracture, malalignment, or joint effusion. Marginal osteophytes are again noted in all compartments, particularly the patellofemoral and medial compartments. There is worsening oaqljqlu-yf-tkalwk medial compartment narrowing. LEFT KNEE: Limited AP view demonstrates worsening upmpyjwf-ht-prjtik medial compartment narrowing and small marginal osteophytes. XR/XR knee RT 2V IMPRESSION: RIGHT KNEE: Tricompartmental osteoarthritis, including worsening crzmstiz-rs-lomije medial compartment narrowing. LEFT KNEE: Limited AP view demonstrates worsening jwzbapwq-aa-yqrrqd medial compartment narrowing.
--- NOTE | ~2021-08-17 | XR_ITS ---
EXAMINATION: XR KNEES STANDING, BILATERAL XR KNEE, RIGHT CLINICAL INFORMATION: Pain in unspecified knee. COMPARISON: XR right knee 07/21/2019. XR left knee 01/12/2018. TECHNIQUE: AP erect view of each knee is obtained. Lateral and sunrise views of the right knee are obtained. FINDINGS: RIGHT KNEE: There is no fracture, malalignment, or joint effusion. Marginal osteophytes are again noted in all compartments, particularly the patellofemoral and medial compartments. There is worsening sucbrqsp-kz-mepuqi medial compartment narrowing. LEFT KNEE: Limited AP view demonstrates worsening mktuseyk-jc-dgafwb medial compartment narrowing and small marginal osteophytes. XR/XR knee standing BI IMPRESSION: RIGHT KNEE: Tricompartmental osteoarthritis, including worsening tzrtvuya-ne-hidzvo medial compartment narrowing. LEFT KNEE: Limited AP view demonstrates worsening qeqeqxog-ll-vvimiz medial compartment narrowing.
== END 2021-08-17 07:06 | disposition home or self-care (01) ==
LOC: HO.HOSX 07:05
PROVIDERS: Visit Provider Physician Assistant
DX: M17.0 Bilateral primary osteoarthritis of knee (principal)
CPT/HCPCS: 20610; 73560; 73565; 99202; J1020; J1040

== ENCOUNTER 2021-09-20 11:34 | Emergency (ER) | payer MEDICAID, SELFPAY ==
--- NOTE | ~2021-09-20 | XR_ITS ---
EXAMINATION: XR ANKLE, LEFT CLINICAL INFORMATION: Fall COMPARISON: February 26, 2016 TECHNIQUE: AP, lateral, and mortise views of the left ankle. FINDINGS: There is an oblique essentially nondisplaced fracture of the distal left fibula. There is an avulsion fracture about with linear bone just distal to the medial malleolus. There is a nondisplaced posterior malleolar fracture. No widening of the medial joint space. There is an ankle effusion with large amount soft tissue swelling. Achilles calcaneal spur present. XR/XR ankle LT min 3V IMPRESSION: Left ankle trimalleolar fracture as described.
[2021-09-20 11:39] VITALS: BP 182/75; PULSE 58; RESP 19; TEMP 36.6; O2SAT 98; BMI 47.9
--- NOTE | 2021-09-20 11:58 | ED_ITS ---
HPI - Extremity Injury (Lower) General Chief Complaint: Extremity Injury, Lower Stated Complaint: Fall Time Seen by Provider: 09/20/21 11:58 Source: patient Limitations: no limitations History of Present Illness HPI Narrative: Patient presents to the ER complaining of left ankle pain. Patient states he slipped on the ice outside his building. Pain is located in the lateral aspect of the left ankle. Pain increases with range of motion weight-bearing. Pain is 8/10. Positive swelling. Patient has a longstanding history of bilateral osteoarthritis of the knee hyperlipidemia positive tobacco use history. Patient denies any nausea vomiting fever chills at this time. Symptoms are moderate in nature. Related Data Home Medications Medication Instructions Recorded Confirmed albuterol sulfate 90 mcg/actuation 2 puff INHALATION Q4H PRN 02/12/21 02/12/21 aerosol inhaler (ProAir HFA) amlodipine 10 mg tablet 10 mg PO QPM 02/12/21 02/12/21 buprenorphine 8 mg-naloxone 2 mg 2 strip SUBLINGUAL DAILY 02/12/21 02/12/21 sublingual film (Suboxone) bupropion HCl 150 mg tablet,12 hr 150 mg PO BID 02/12/21 02/12/21 sustained-release calcium carbonate 500 mg-vitamin 1 tab PO BID 02/12/21 02/12/21 D3 10 mcg (400 unit) tablet (Oyster Shell Calcium-Vitamin D3) carvedilol 25 mg tablet 25 mg PO BID 02/12/21 02/12/21 cholecalciferol (vitamin D3) 25 1,000 unit PO DAILY 02/12/21 02/12/21 mcg (1,000 unit) tablet clopidogrel 75 mg tablet 75 mg PO DAILY 02/12/21 02/12/21 fluticasone 250 mcg-salmeterol 50 1 puff INHALATION BID 02/12/21 02/12/21 mcg/dose blistr powdr for inhalation (Advair Diskus) fluticasone propionate 50 2 spray INTRANASAL DAILY 02/12/21 02/12/21 mcg/actuation nasal spray,suspension furosemide 40 mg tablet 40 mg PO DAILY 02/12/21 02/12/21 hydralazine 100 mg tablet 100 tab PO TID 02/12/21 02/12/21 isosorbide mononitrate 30 mg 60 mg PO DAILY 02/12/21 02/12/21 tablet,extended release 24 hr losartan 100 mg tablet 100 mg PO DAILY 02/12/21 02/12/21 metformin 500 mg tablet 500 mg PO BID 02/12/21 02/12/21 nicotine (polacrilex) 2 mg gum 1 ea PO Q2H PRN 02/12/21 02/12/21 omeprazole 20 mg capsule,delayed 20 mg PO DAILY 02/12/21 02/12/21 release rosuvastatin 40 mg tablet 40 mg PO BEDTIME 02/12/21 02/12/21 spironolactone 25 mg tablet 25 mg PO BID 02/12/21 02/12/21 tiotropium bromide 18 mcg capsule 1 cap INHALATION DAILY 02/12/21 02/12/21 with inhalation device (Spiriva with HandiHaler) Previous Rx's Medication Instructions Recorded cefuroxime axetil 500 mg tablet 500 mg PO BID #14 tab 02/19/21 doxycycline monohydrate 100 mg 100 mg PO BID #28 cap 02/19/21 capsule tramadol 50 mg tablet 50 mg PO Q8H PRN #20 tab 09/20/21 Allergies Allergy/AdvReac Type Severity Reaction Status Date / Time crab [CRAB] Allergy Unknown ANAPHYLAXIS Verified 08/17/21 10:56 lisinopril [LISINOPRIL] Allergy Unknown cough Verified 08/17/21 10:56 Penicillins [PCN] Allergy Unknown RASH Verified 08/17/21 10:56 Sulfa (Sulfonamide Allergy Unknown RASH Verified 08/17/21 10:56 Antibiotics) [SULFA (SULFONAMIDE ANTIBIOTICS)] Review of Systems Constitutional: Constitutional: Denies chills, Denies fever(s) and Denies headache(s) ENT: Denies headache(s) Cardiovascular: Cardiovascular: Denies chest pain and Denies dyspnea Respiratory: Respiratory: Denies dyspnea Gastrointestinal: Gastrointestinal: Denies diarrhea, Denies nausea and Denies vomiting Musculoskeletal: Musculoskeletal: Denies back pain and Reports arthralgias ( Left ankle) Neurologic: Denies headache(s) Comments: denies loss of consciousness Allergic/Immunologic: Allergic/Immunologic: Reports no additional allergic/immunologic complaints PMFSH Past Medical History Medical History Asthma Congestive heart failure COPD (chronic obstructive pulmonary disease) Coronary artery disease Diabetes Hypertension Normocytic anemia Obesity Obstructive sleep apnea Opioid abuse Opioid use disorder, severe, dependence Streptococcal bacteremia Surgical History H/O hernia repair Hx of colonoscopy Family History Family History Father No problems noted. Mother No problems noted. Social History Social History Household Members: None Housing: House Do you presently have visiting nurse or other home services: No Alcohol intake: never Patient Tobacco Use Status: Current everyday Tobacco user Advance Directives: No Advance Directives Information Provided: Yes service: No Current occupational status: disabled Physical Exam Vital Signs: Vital Signs: Last Vital Signs Temp 98 F 09/20/21 11:39 Pulse 58 09/20/21 11:39 Resp 19 09/20/21 11:39 BP 182/75 H 09/20/21 11:39 Pulse Ox 98 09/20/21 11:39 BMI result Body Mass Index 47.9 vital signs have been reviewed as normal and appeared to be correct. Blood pressure normal. Heart rate normal. Respiration rate normal. Temperature normal. Oxygen saturation normal. Appearance: Alert. Oriented X3. No acute distress. Head: Normal external exam. Normocephalic. Atraumatic. No Nelson signs noted. No raccoon eyes noted Eyes: PERRLA. EOMI. Conjunctiva and sclera normal. Eyelids normal. ENT: Pharynx normal. Uvula midline. Moist mucous membranes. Neck: Soft full range of motio CVS: Heart regular rate and rhythm no murmurs and rubs Respiratory: breath sounds slightly diminished no accessory muscle use Abdomen: Soft nontender no rebound or guarding positive bowel sounds Back: No CVA tenderness. Full range of motion noted. Skin: Skin warm and dry. Normal skin color. Normal skin turgor. No rashes/lesions/lacerations noted. Extremities: left ankle lateral malleolus tenderness positive edema noted medial malleolus nontender positive sensation positive pulses Neuro: Oriented X 3. No motor deficit. No sensory deficit. Reflexes normal. Course Course Course Narrative: left ankle sprain left ankle fracture left ankle contusion left ankle x-rays pending. 12:23 p.m. mass pat reviewed patient has been on Suboxone in the past 1:13 p.m. x-ray reviewed in Radiology possible distal fibular fracture patient admits to recently sniffing heroin 1:21 p.m. [place] text sent to Dr. Banks from Orthopedics for recommendations of splinting and follow-up Case discussed with Dr. Banks will place patient in orthopedic boot instructed nonweightbearing with crutches follow-up in the office in 1 week Case discussed with Dr. Mills although patient has a history of opiate abuse since patient does have a distal fibular fracture will place patient on tramadol at this time 1:42 p.m. long boot applied patient tolerated well. was reiterated to patient on multiple occasions studies and to be nonweightbearing at this time. With close follow-up with orthopedics MDM - Extremity Injury (Lower) Imaging Data ankle: Radiologist's impression: [address] [address] XRay Report Signed Patient: Christine Meier MR#: [id number] : 1960 Acct:[id number] Age/Sex: 60 / M ADM Date: 09/20/21 Loc: HO.ED Attending Dr: Ordering Physician: Anny Mills MD Date of Service: 09/20/21 Procedure(s): XR ankle LT min 3V Accession Number(s): [id number] cc: Anny Mills MD~ EXAMINATION: XR ANKLE, LEFT CLINICAL INFORMATION: Fall? COMPARISON: February 26, 2016? TECHNIQUE: AP, lateral, and mortise views of the left ankle. FINDINGS: There is an oblique essentially nondisplaced fracture of the distal left fibula. There is an avulsion fracture about with linear bone just distal to the medial malleolus. There is a nondisplaced posterior malleolar fracture. No widening of the medial joint space. There is an ankle effusion with large amount soft tissue swelling. Achilles calcaneal spur present.? XR/XR ankle LT min 3V IMPRESSION: Left ankle trimalleolar fracture as described. Dictated By: Dipak Clarke MD Signed By: <Electronically signed by Dipak Clarke MD in OV> 09/20/21 1316 DD/ 1208 TD/TT:? Water Supply Technician: SK Discharge Plan Discharge Clinical Impression: Ankle fracture Closed fibular fracture Qualifiers: Encounter type: initial encounter Fibula location: distal Fracture morphology: unspecified fracture morphology Laterality: left Qualified Code(s): S82.832A - Other fracture of upper and lower end of left fibula, initial encounter for closed fracture Patient Disposition: Home, Self-Care Instructions: Ankle Fracture (ED) Additional Instructions: It is important not to weightbear it is important to keep the ankle elevated Call Orthopedics for follow-up Prescriptions: New tramadol 50 mg tablet 50 mg PO Q8H PRN (Reason: severe pain (scale score 7-10)) Qty: 20 RF: 0 No Action furosemide 40 mg tablet 40 mg PO DAILY RF: 0 metformin 500 mg tablet 500 mg PO BID RF: 0 bupropion HCl 150 mg tablet sustained-release 12 hr 150 mg PO BID RF: 0 fluticasone propion-salmeterol [Advair Diskus] 250-50 mcg/dose blister with device 1 puff inhalation BID RF: 0 carvedilol 25 mg tablet 25 mg PO BID RF: 0 nicotine (polacrilex) 2 mg gum 1 ea PO Q2H PRN (Reason: Nicotine Cravings) RF: 0 isosorbide mononitrate 30 mg tablet extended release 24 hr 60 mg PO DAILY RF: 0 clopidogrel 75 mg tablet 75 mg PO DAILY RF: 0 spironolactone 25 mg tablet 25 mg PO BID RF: 0 amlodipine 10 mg tablet 10 mg PO QPM RF: 0 hydralazine 100 mg tablet 100 tab PO TID RF: 0 omeprazole 20 mg capsule,delayed release(DR/EC) 20 mg PO DAILY RF: 0 albuterol sulfate [ProAir HFA] 90 mcg/actuation HFA aerosol inhaler 2 puff inhalation Q4H PRN (Reason: Wheezing) RF: 0 losartan 100 mg tablet 100 mg PO DAILY RF: 0 fluticasone propionate 50 mcg/actuation spray,suspension 2 spray intranasal DAILY RF: 0 rosuvastatin 40 mg tablet 40 mg PO BEDTIME RF: 0 Spiriva with HandiHaler 18 mcg capsule, w/inhalation device 1 cap inhalation DAILY RF: 0 cholecalciferol (vitamin D3) 25 mcg (1,000 unit) tablet 1,000 unit PO DAILY RF: 0 calcium carbonate-vitamin D3 [Oyster Shell Calcium-Vit D3] 500 mg(1,250mg) - 400 unit tablet 1 tab PO BID RF: 0 buprenorphine-naloxone [Suboxone] 8-2 mg film 2 strip sublingual DAILY RF: 0 cefuroxime axetil 500 mg tablet 500 mg PO BID Qty: 14 RF: 0 doxycycline monohydrate 100 mg capsule 100 mg PO BID Qty: 28 RF: 0 Referrals: Bj Banks MD [Physician] - 2 days ( call for follow-up with orthopedics) Print Language: Tuvaluan
== END 2021-09-20 14:04 | disposition home or self-care (01) ==
PROVIDERS: Emergency Provider Emergency Medicine; PCP Internal Medicine
DX: S82.832A Other fracture of upper and lower end of left fibula, initial encounter for closed fracture (principal); W00.0XXA Fall on same level due to ice and snow, initial encounter; F11.10 Opioid abuse, uncomplicated; Y93.01 Activity, walking, marching and hiking; Y92.480 Sidewalk as the place of occurrence of the external cause; Y99.9 Unspecified external cause status
CPT/HCPCS: 73610; 99283

== ENCOUNTER 2021-09-24 15:00 | Outpatient (REF) | payer MEDICAID, SELFPAY ==
--- NOTE | ~2021-09-24 | XR_ITS ---
EXAMINATION: XR ANKLE, LEFT CLINICAL INFORMATION: Pain. COMPARISON: Left ankle 09/20/2021 TECHNIQUE: AP, lateral, and mortise views of the left ankle. FINDINGS: There is oblique distal fibular fracture with mild displacement. The ankle mortise and subtalar joints are normal. There is moderate bimalleolar soft tissue swelling. A small retrocalcaneal heel spur is seen. XR/XR ankle LT min 3V IMPRESSION: Oblique distal fibular fracture with mild displacement, stable compared to last exam 09/20/2021. There is bimalleolar moderate soft tissue swelling.
== END 2021-09-24 15:01 | disposition home or self-care (01) ==
LOC: HO.HOSX 15:00
PROVIDERS: PCP Internal Medicine; Visit Provider Physician Assistant
DX: S82.852A Displaced trimalleolar fracture of left lower leg, initial encounter for closed fracture (principal)
CPT/HCPCS: 29405; 73610; 99202

== ENCOUNTER 2021-10-15 07:19 | Outpatient (REF) | payer MEDICAID, SELFPAY ==
--- NOTE | ~2021-10-15 | XR_ITS ---
EXAMINATION: XR ANKLE, LEFT CLINICAL INFORMATION: Distal fibular fracture. Follow-up. COMPARISON: Radiographs left ankle 09/24/2021, 09/20/2021 TECHNIQUE: 3 views of the left ankle are obtained. FINDINGS: Oblique fracture distal fibular is similar to prior studies. There is mild lateral displacement distal fracture fragment without significant change. There is no visible interval callus formation at this time. There is no acute fracture or dislocation or destructive process. Again, some linear mineralization is seen adjacent to the tip medial malleolus. There is bulky posterior calcaneal spur. XR/XR ankle LT min 3V IMPRESSION: Oblique fracture distal fibula stable in alignment. No definite interval callus formation at this time.
== END 2021-10-15 07:20 | disposition home or self-care (01) ==
LOC: HO.HOSX 07:19
PROVIDERS: Visit Provider Physician Assistant
DX: S82.302A Unspecified fracture of lower end of left tibia, initial encounter for closed fracture (principal); S82.832A Other fracture of upper and lower end of left fibula, initial encounter for closed fracture
CPT/HCPCS: 73610; 99212

== ENCOUNTER 2021-10-16 08:40 | Outpatient (REF) | payer MEDICAID, SELFPAY ==
[2021-10-16 10:22] LABS: MANUAL DIFF FLAG NO
[2021-10-16 11:25] LABS: Basophils Percent Auto 0.3 % (0-2); Eosinophils Absolute Auto 0.3 X10*3/uL (0.0-0.4); Eosinophils Percent Auto 3.9 % (0-4); Hematocrit 34.3 % (42.0-52.0); Hemoglobin 10.4 g/dl (14.0-18.0); Imm Gran Abs Auto 0.03 X10*3/uL (0.00-0.03); Imm Gran Pct Auto 0.5 % (0.0-0.4); Lymphocytes Absolute Auto 0.9 X10*3/uL (1.2-4.9); Lymphocytes Percent Auto 14.4 % (20-40); Mean Corpuscular HGB Conc 30.3 g/dl (31.0-36.0); Mean Corpuscular Hemoglobin 24.6 pg (27.0-33.0); Mean Corpuscular Volume 81.1 fL (80.0-98.0); Mean Platelet Volume 10.7 fL (9.4-12.4); Monocytes Absolute Auto 0.5 X10*3/uL (0.1-1.2); Monocytes Percent Auto 7.1 % (2-11); Neutrophils Absolute Auto 4.7 x10*3/uL (2.0-8.3); Neutrophils Percent Auto 73.8 % (45-73); Platelet Count 248 X10*3/uL (160-400); Red Blood Count 4.23 X10*6/uL (4.60-5.80); Red Cell Distribution Width 16.1 % (11.0-16.0); White Blood Count 6.3 X10*3/uL (4.8-10.8)
[2021-10-16 11:56] LABS: Anion Gap 11 (12-20); Blood Urea Nitrogen 17 mg/dL (9-16); Calcium 9.1 mg/dL (8.4-10.2); Carbon Dioxide 27 mmol/L (22-29); Chloride 109 mmol/L (96-108); Estimated Glomerular Filt Rate > 60; Glucose Random 139 mg/dL (60-115); Potassium 4.1 mmol/L (3.3-5.1); Sodium 143 mmol/L (135-145)
[2021-10-16 12:33] LABS: Erythrocyte Sedimentation Rate 10 MM/HR (0-15)
== END 2021-10-16 08:41 | disposition home or self-care (01) ==
LOC: HO.LAB 08:40
PROVIDERS: PCP Internal Medicine; Visit Provider Hospitalist
DX: J41.0 Simple chronic bronchitis (principal); J30.9 Allergic rhinitis, unspecified; G47.33 Obstructive sleep apnea (adult) (pediatric); F17.210 Nicotine dependence, cigarettes, uncomplicated; Z01.82 Encounter for allergy testing
CPT/HCPCS: 36415; 80048; 82785; 85025; 85652; 86003; 99202

== ENCOUNTER 2021-11-12 08:35 | Outpatient (REF) | payer MEDICAID, SELFPAY ==
--- NOTE | ~2021-11-12 | XR_ITS ---
EXAMINATION: XR ANKLE, LEFT CLINICAL INFORMATION: Left ankle pain. COMPARISON: Left ankle 10/15/2021 TECHNIQUE: AP, lateral, and mortise views of the left ankle. FINDINGS: There is an oblique distal fibular fracture, stable. There is bimalleolar soft tissue swelling. The ankle mortise and subtalar joints are normal. XR/XR ankle LT min 3V IMPRESSION: Oblique fracture distal fibula with callus formation. There is bimalleolar soft tissue swelling visualized. No new fracture seen.
== END 2021-11-12 08:36 | disposition home or self-care (01) ==
LOC: HO.HOSX 08:35
PROVIDERS: Visit Provider Physician Assistant
DX: S82.832A Other fracture of upper and lower end of left fibula, initial encounter for closed fracture (principal)
CPT/HCPCS: 73610; 99212

== ENCOUNTER 2021-11-27 12:43 | Outpatient (REF) | payer MEDICAID, SELFPAY ==
--- NOTE | ~2021-11-27 | CT_ITS ---
EXAMINATION: CT CHEST WITHOUT CONTRAST CLINICAL INFORMATION: Solitary pulmonary nodule. COMPARISON: CT chest 02/12/2021. TECHNIQUE: Multidetector volumetric CT imaging of the chest was done. Axial MIP volume rendering provided. Sagittal and coronal reformatted images were obtained. This CT examination was performed using dose optimization techniques as appropriate, variously including the following: *Automated exposure control *Adjustment of mA and/or kV according to patient size (this includes techniques or standardized protocols for targeted exams where dose is matched to indication/reason for exam; i.e. extremities or head) *Use of iterative reconstruction technique DLP: 333 mGy-cm FINDINGS: TECHNICAL PROJECT COORDINATOR: Unremarkable. LUNGS: Previously seen groundglass attenuation adjacent to the major fissures has resolved. Small soft tissue pulmonary nodules seen in the left upper lobe adjacent to the major fissure has resolved. There is no pulmonary nodules seen on the present exam. No consolidation or atelectasis seen. MEDIASTINUM: The heart size and great vessels are normal caliber. The thyroid lobes are symmetrical. Central trachea and the bronchi are widely patent. There is no pericardial effusion. No abnormal size mediastinal or hilar lymph nodes seen. PLEURA: There is no pleural effusion. No pleural mass or thickening. AXILLA: No lymphadenopathy. UPPER ABDOMEN: Visualized liver, spleen, pancreas, gallbladder and bilateral adrenal glands. There is a small cyst upper pole right kidney. OSSEOUS STRUCTURES: No lytic or sclerotic process seen. There is moderate spondylosis mid dorsal spine. CT/CT chest wo con IMPRESSION: Interval resolution of groundglass attenuation adjacent to major fissure as well as soft tissue pulmonary nodules compared to previous study 02/12/2021 CT chest exam. There are no pulmonary nodule seen at this time. No acute consolidation. Fleischner guidelines were followed.
== END 2021-11-27 12:44 | disposition home or self-care (01) ==
LOC: HO.CT 12:43
PROVIDERS: Visit Provider Hospitalist
DX: R91.1 Solitary pulmonary nodule (principal)
CPT/HCPCS: 71250

== ENCOUNTER 2021-11-29 12:27 | Outpatient (REF) | payer MEDICAID, SELFPAY ==
--- NOTE | 2021-11-29 17:26 | PFT_ITS ---
Forced vital capacity 55%, FEV1 60%, FEV1/FVC ratio 83. GXA45-43 is 78%. MVV 48%. After bronchodilator therapy, there is a significant improvement in [id number]. Total lung capacity 72%. Residual volume 108%. Diffusion capacity 75%. CONCLUSION: There is evidence of mild restrictive pulmonary disorder. Also evidence of mild obstructive airway disorder with good response to bronchodilator therapy. This finding indicates presence of mild bronchial asthma. Clinical correlation is recommended. MVV is markedly decreased, probably indicating poor effort or general muscle weakness. Clinical correlation recommended. Jesus Gutierrez MD MSB/MODL / [id number]
== END 2021-11-29 12:28 | disposition home or self-care (01) ==
LOC: HO.RESP 12:27
PROVIDERS: PCP Internal Medicine; Visit Provider Hospitalist
DX: J41.0 Simple chronic bronchitis (principal); J98.4 Other disorders of lung; G47.33 Obstructive sleep apnea (adult) (pediatric); J30.9 Allergic rhinitis, unspecified; Z71.6 Tobacco abuse counseling
CPT/HCPCS: 94060; 94727; 94729; 99212

== ENCOUNTER 2021-12-06 12:04 | Emergency (ER) | payer MEDICAID, SELFPAY ==
--- NOTE | 2021-12-06 | ECG_ITS ---
Test Reason : SOB Blood Pressure : / mmHG Vent. Rate : 079 BPM Atrial Rate : 079 BPM P-R Int : 134 ms QRS Dur : 096 ms QT Int : 404 ms P-R-T Axes : 024 001 069 degrees QTc Int : 463 ms Normal sinus rhythm with sinus arrhythmia Nonspecific T wave abnormality Prolonged QT Abnormal ECG When compared with ECG of 17-FEB-2021 18:23, Nonspecific T wave abnormality now evident in Lateral leads Referred By: Generic ED Physician Electronically Signed By:ALFONZO WAY MD
--- NOTE | ~2021-12-06 | XR_ITS ---
EXAMINATION: XR CHEST CLINICAL INFORMATION: Dyspnea. COMPARISON: 02/13/2021 portable chest. TECHNIQUE: 2 views of the chest were obtained. FINDINGS: Mild linear markings are seen in the lingula. The lungs are clear. There are no pleural effusions. The heart and mediastinal structures are unremarkable. XR/XR chest 2V IMPRESSION: Mild linear atelectasis versus scarring in the lingula. No acute cardiopulmonary process.
[2021-12-06 12:37] VITALS: BP 171/98; PULSE 79; RESP 22; TEMP 36.1; O2SAT 96; BMI 45.8
[2021-12-06 12:53] LABS: MANUAL DIFF FLAG NO
[2021-12-06 12:56] LABS: Basophils Percent Auto 0.3 % (0-2); Eosinophils Absolute Auto 0.1 X10*3/uL (0.0-0.4); Eosinophils Percent Auto 0.7 % (0-4); Hematocrit 40.2 % (42.0-52.0); Hemoglobin 12.3 g/dl (14.0-18.0); Imm Gran Abs Auto 0.03 X10*3/uL (0.00-0.03); Imm Gran Pct Auto 0.4 % (0.0-0.4); Lymphocytes Percent Auto 13.9 % (20-40); Mean Corpuscular HGB Conc 30.6 g/dl (31.0-36.0); Mean Corpuscular Hemoglobin 24.6 pg (27.0-33.0); Mean Corpuscular Volume 80.6 fL (80.0-98.0); Mean Platelet Volume 10.4 fL (9.4-12.4); Monocytes Absolute Auto 0.5 X10*3/uL (0.1-1.2); Monocytes Percent Auto 7.6 % (2-11); Neutrophils Absolute Auto 5.4 x10*3/uL (2.0-8.3); Neutrophils Percent Auto 77.1 % (45-73); Platelet Count 267 X10*3/uL (160-400); Red Blood Count 4.99 X10*6/uL (4.60-5.80); Red Cell Distribution Width 15.6 % (11.0-16.0)
[2021-12-06 13:14] LABS: Alanine Aminotransferase 16 U/L (0-40); Albumin Level 3.9 g/dL (3.5-5.0); Alkaline Phosphatase 94 U/L (39-117); Anion Gap 13 (12-20); Aspartate Amino Transferase 24 U/L (5-37); Bilirubin Total 0.6 mg/dL (0.0-1.0); Blood Urea Nitrogen 17 mg/dL (9-16); Calcium 9.4 mg/dL (8.4-10.2); Carbon Dioxide 29 mmol/L (22-29); Chloride 101 mmol/L (96-108); Estimated Glomerular Filt Rate 58; Glucose Random 193 mg/dL (60-115); Potassium 4.1 mmol/L (3.3-5.1); Sodium 139 mmol/L (135-145); Total Protein 6.7 g/dL (6.5-8.0)
== END 2021-12-06 15:52 | disposition left against medical advice (07) ==
PROVIDERS: Emergency Provider Emergency Medicine
DX: I10 Essential (primary) hypertension (principal); E78.5 Hyperlipidemia, unspecified; J44.9 Chronic obstructive pulmonary disease, unspecified; F17.200 Nicotine dependence, unspecified, uncomplicated
CPT/HCPCS: 36415; 71046; 80053; 84484; 85025; 93005; 99283

== ENCOUNTER 2021-12-07 23:23 | Emergency (ER) | payer MEDICAID, SELFPAY ==
--- NOTE | ~2021-12-07 | CT_ITS ---
EXAMINATION: CT ABDOMEN AND PELVIS WITHOUT CONTRAST CLINICAL INFORMATION: Severe abdominal pain COMPARISON: 02/12/2021 TECHNIQUE: Multidetector volumetric imaging was performed from the superior aspect of the liver through the pubic symphysis. Sagittal and coronal reformatted images were obtained on the technologist's workstation. This CT examination was performed using dose optimization techniques as appropriate, variously including the following: *Automated exposure control *Adjustment of mA and/or kV according to patient size (this includes techniques or standardized protocols for targeted exams where dose is matched to indication/reason for exam; i.e. extremities or head) *Use of iterative reconstruction technique DLP: 1406 mGy-cm FINDINGS: Limited evaluation in some regions due to motion artifact. LUNG BASES: The visualized lung bases are unremarkable. Coronary artery calcifications are present. LIVER, GALLBLADDER, AND BILIARY TREE: The liver is normal in size, shape, and attenuation. No focal hepatic lesion or biliary ductal dilatation is present. The gallbladder is unremarkable. PANCREAS: Partial fatty atrophy is noted. SPLEEN: Unremarkable. ADRENAL GLANDS: Unremarkable. KIDNEYS AND URETERS: No hydronephrosis or obstructing calculus. Posterior right renal cyst measures approximately 4 cm; no follow-up recommended. Stable subcentimeter hypodensity off the lower left kidney. A 2 mm calculus is present in the lower right kidney. BLADDER: Unremarkable. GASTROINTESTINAL TRACT: Small hiatal hernia is present. No evidence of bowel obstruction. No significant bowel wall thickening is seen. The appendix is unremarkable. No free fluid or free air is seen. ABDOMINAL WALL: Bilateral fat-containing inguinal hernias are noted. LYMPH NODES: Normal. VASCULAR: Scattered atherosclerotic calcifications are present. PELVIC VISCERA: Unremarkable. OSSEOUS STRUCTURES: Degenerative changes are noted in the spine. CT/CT abdomen pelvis wo con IMPRESSION: 1. No acute findings identified in the abdomen/pelvis. 2. Coronary artery calcifications. Correlation with cardiac risk factors is recommended. Fleischner guidelines were followed.
--- NOTE | ~2021-12-07 | XR_ITS ---
EXAMINATION: XR CHEST CLINICAL INFORMATION: Chest pain COMPARISON: 12/06/2021 TECHNIQUE: Frontal view of the chest was obtained. FINDINGS: Lung volumes are symmetric. No focal consolidation is seen. Mild central peribronchial thickening is suspected. No evidence of pneumothorax, pleural effusion, or pulmonary edema. Cardiac size is within normal limits. Calcification is present at the aortic arch. No acute osseous findings are seen. XR/XR chest 1V IMPRESSION: No focal consolidation. Mild central peribronchial thickening may represent acute or chronic bronchitis.
--- NOTE | 2021-12-07 23:22 | PC.NURSE ---
Took report from [place] to assume care of Pt, Pt writhing in bed, unable to sit still, unable to complete ECG at this time, Pt medicated prior to report, call light in reach, this RN continues to monitor.
[2021-12-07 23:29] VITALS: BP 170/90; PULSE 88; O2SAT 100
[2021-12-07 23:42] VITALS: PULSE 84; RESP 30; O2SAT 97; BMI 50.8
[2021-12-07] MEDS: LORazepam 2 MG/ML VIAL IVPUSH (23:51)
--- NOTE | 2021-12-07 23:53 | ECG_ITS ---
Test Reason : SUBSTANCE ABUSE Blood Pressure : / mmHG Vent. Rate : 094 BPM Atrial Rate : 094 BPM P-R Int : 128 ms QRS Dur : 092 ms QT Int : 338 ms P-R-T Axes : 033 021 053 degrees QTc Int : 422 ms Poor data quality Sinus rhythm with marked sinus arrhythmia Nonspecific T wave abnormality Abnormal ECG When compared with ECG of 06-DEC-2021 12:35, Poor data quality in current ECG precludes serial comparison Referred By: Ruthie Watson Electronically Signed By:ALFONZO WAY MD
--- NOTE | 2021-12-07 23:53 | ED.ABDPAIN ---
HPI - Abdominal Pain General Chief Complaint: ETOH/Substance Use Stated Complaint: vomiting Time Seen by Provider: 12/07/21 23:43 Source: patient and EMS Mode of arrival: EMS Limitations: other History of Present Illness HPI narrative: This is a a 61-year-old male past medical history significant for diastolic dysfunction, asthma, obstructive sleep apnea, COPD, morbid obesity, polysubstance abuse presenting to the emergency department via ambulance who tell us that patient is acutely withdrawing from heroin he usually uses 10 bundles a day, he is flailing on the stretcher, not speaking words, it is pointing at his abdomen and saying ?pain . Patient is not answering any of my questions, non cooperative with the history taking process. He appears to be uncomfortable. Unable to obtain an accurate history and review of systems due to patient not cooperating Related Data Home Medications Medication Instructions Recorded Confirmed amlodipine 10 mg tablet 10 mg PO QPM 02/12/21 10/15/21 buprenorphine 8 mg-naloxone 2 mg 2 strip SUBLINGUAL DAILY 02/12/21 10/15/21 sublingual film (Suboxone) bupropion HCl 150 mg tablet,12 hr 150 mg PO BID 02/12/21 10/15/21 sustained-release calcium carbonate 500 mg-vitamin 1 tab PO BID 02/12/21 10/15/21 D3 10 mcg (400 unit) tablet (Oyster Shell Calcium-Vitamin D3) carvedilol 25 mg tablet 25 mg PO BID 02/12/21 10/15/21 cholecalciferol (vitamin D3) 25 1,000 unit PO DAILY 02/12/21 10/15/21 mcg (1,000 unit) tablet clopidogrel 75 mg tablet 75 mg PO DAILY 02/12/21 10/15/21 fluticasone propionate 50 2 spray INTRANASAL DAILY 02/12/21 10/15/21 mcg/actuation nasal spray,suspension furosemide 40 mg tablet 40 mg PO DAILY 02/12/21 10/15/21 hydralazine 100 mg tablet 100 tab PO TID 02/12/21 10/15/21 isosorbide mononitrate 30 mg 60 mg PO DAILY 02/12/21 10/15/21 tablet,extended release 24 hr losartan 100 mg tablet 100 mg PO DAILY 02/12/21 10/15/21 metformin 500 mg tablet 500 mg PO BID 02/12/21 10/15/21 nicotine (polacrilex) 2 mg gum 1 ea PO Q2H PRN 02/12/21 10/15/21 omeprazole 20 mg capsule,delayed 20 mg PO DAILY 02/12/21 10/15/21 release rosuvastatin 40 mg tablet 40 mg PO BEDTIME 02/12/21 10/15/21 spironolactone 25 mg tablet 25 mg PO BID 02/12/21 10/15/21 albuterol sulfate 0.63 mg/3 mL 0.63 mg INHALATION Q4-6H PRN 10/16/21 solution for nebulization diclofenac sodium 1 % topical gel 2 g TOPICAL QID 10/16/21 melatonin 10 mg capsule 10 mg PO BEDTIME PRN 10/16/21 nitroglycerin 0.4 mg sublingual 0.4 mg SUBLINGUAL Q5M PRN 10/16/21 tablet ondansetron HCl 4 mg tablet 4 mg PO Q8H 10/16/21 sennosides 8.6 mg-docusate sodium 1 tab-cap PO BID PRN 10/16/21 50 mg capsule (Senna Plus) trazodone 100 mg tablet 100 mg PO BEDTIME PRN 10/16/21 Previous Rx's Medication Instructions Recorded tramadol 50 mg tablet 50 mg PO Q8H PRN #20 tab 09/20/21 albuterol sulfate 90 mcg/actuation 2 puff INHALATION Q4H PRN 30 Days 10/16/21 aerosol inhaler (ProAir HFA) #8.5 g fluticasone fur. 200 mcg-umeclid 1 inh INHALATION DAILY 30 Days #60 10/16/21 62.5 mcg-vilant 25 mcg ea inhalat.powder (Trelegy Ellipta) nicotine 14 mg/24 hr daily 1 patch TRANSDERMAL DAILY 28 Days 10/16/21 transdermal patch #28 ea Allergies Allergy/AdvReac Type Severity Reaction Status Date / Time crab [CRAB] Allergy Unknown ANAPHYLAXIS Verified 12/07/21 23:52 lisinopril [LISINOPRIL] Allergy Unknown cough Verified 12/07/21 23:52 Penicillins [PCN] Allergy Unknown RASH Verified 12/07/21 23:52 Sulfa (Sulfonamide Allergy Unknown RASH Verified 12/07/21 23:52 Antibiotics) [SULFA (SULFONAMIDE ANTIBIOTICS)] Review of Systems Review of Systems Yes Unobtainable due to mental status PMFSH Past Medical History Attestation statement: The following information was validated with the patient. Source: old records reviewed and nursing notes reviewed Medical History (Updated 12/08/21 @ 03:36 by MÓNICA Barreto) Asthma Asthma Chronic allergic rhinitis Chronic restrictive lung disease Congestive heart failure COPD (chronic obstructive pulmonary disease) Coronary artery disease Diabetes Hyperlipidemia Hypertension Normocytic anemia Obesity Obstructive sleep apnea Opioid abuse Pulmonary nodule Streptococcal bacteremia Surgical History H/O hernia repair Hx of colonoscopy Family History Family History Father No problems noted. Mother No problems noted. Social History Social History Household Members: None Housing: House Do you presently have visiting nurse or other home services: No Alcohol intake: never Patient Tobacco Use Status: Current everyday Tobacco user Advance Directives: No Advance Directives Information Provided: Yes service: No Current occupational status: disabled Current occupation: [employer] handed Physical Exam ED Vital Signs: Vital Signs - 24 hr 12/07/21 23:42 Pulse Rate 84 Respiratory Rate 30 H Pulse Oximetry 97 BMI result Body Mass Index 50.8 Vital signs stable Appearance: Alert.? Oriented X3.? No acute distress.? Patient flailing on stretcher, screaming pain , appears uncomfortable. Head: Normocephalic, atraumatic, no step-offs or deformities Eyes: Pupils equal, round and reactive to light.? ENT: Pharynx normal.? Neck: Normal inspection.? Neck supple.? CVS: Normal heart rate and rhythm.? Pulses normal.? Respiratory: No respiratory distress.? Breath sounds normal.? Abdomen: Soft and + diffusley tender in all 4 quadrants.? Skin: Skin warm and dry.? Normal skin color.? Normal skin turgor.? Extremities: No lower extremity edema.? No calf ttp. 5/5 strength to bilateral upper and lower extremities Back: No midline tenderness, no C-spine tenderness, full range of motion, no CVA tenderness bilaterally Neuro: Oriented X 3.? No motor deficit.? No sensory deficit. CN 2-12 intact Course Reevaluation(s) Reevaluation #1: Patient attempted to elope. He came back. Sign-out given to Dr. Pascal pending abdominal CT. Labs. Patient improvement. Time: 03:35 MDM - Abdominal Pain MDM Narrative Medical decision making narrative: 2355 61 yo m presents with question heroin withdraw and abdominal pain. Patient not answering my questions not cooperative. On exam he is diffusely tender to the abdomen. Regular rate and rhythm. Lungs clear. 2+ pitting edema to bilateral lower extremities. Neuro exam unable to do an accurate assessment at this time will return. Plan at this time is to do a cardiac workup to rule out ACS as patient is not verbalizing his complaints and he appears to be uncomfortable pointing at his abdomen and epigastric region. Will also obtain labs and abdominal imaging. Medical Records Attestation: I reviewed the patient's medical records. Lab Data Attestation: I reviewed the patient's lab results. Result diagrams: 12/07/21 00:05 12/07/21 00:05 Labs: Lab Results 12/07/21 12/07/21 12/07/21 Range/Units 00:05 00:05 00:05 WBC 9.9 (4.8-10.8) X10*3/uL RBC 5.10 (4.60-5.80) X10*6/uL Hgb 12.3 L (14.0-18.0) g/dl Hct 40.0 L (42.0-52.0) % MCV 78.4 L (80.0-98.0) fL MCH 24.1 L (27.0-33.0) pg MCHC 30.8 L (31.0-36.0) g/dl RDW 15.1 (11.0-16.0) % Plt Count 354 D (160-400) X10*3/uL MPV 11.2 (9.4-12.4) fL Immature Gran % (Auto) 0.4 (0.0-0.4) % Neut % (Auto) 65.7 (45-73) % Lymph % (Auto) 21.5 (20-40) % [place] % (Auto) 10.6 (2-11) % Eos % (Auto) 1.7 (0-4) % Baso % (Auto) 0.1 (0-2) % Lymph # (Auto) 2.1 (1.2-4.9) X10*3/uL [place] # (Auto) 1.1 (0.1-1.2) X10*3/uL Eos # (Auto) 0.2 (0.0-0.4) X10*3/uL Baso # (Auto) 0.0 (0.0-0.2) X10*3/uL Abs Immat Gran (auto) 0.04 H (0.00-0.03) X10*3/uL Absolute Neuts (auto) 6.5 (2.0-8.3) x10*3/uL Absolute Nucleated RBC 0.000 (0.0-0.012) X10*3/uL Nucleated RBC % (auto) 0.0 (0.0-0.2) /100WBC Sodium 140 (135-145) mmol/L Potassium 4.1 (3.3-5.1) mmol/L Chloride 102 (96-108) mmol/L Carbon Dioxide 23 (22-29) mmol/L Anion Gap 19 (12-20) BUN 22 H (9-16) mg/dL Creatinine 1.78 H (0.5-1.4) mg/dL Estim Creat Clear Calc 59.2 Estimated GFR 39 Random Glucose 151 H (60-115) mg/dL Calcium 9.7 (8.4-10.2) mg/dL Magnesium 2.1 (1.6-2.6) mg/dL Total Bilirubin 0.5 (0.0-1.0) mg/dL AST 26 (5-37) U/L ALT 15 (0-40) U/L Alkaline Phosphatase 95 (39-117) U/L Troponin I High Sens 14.9 (<3.5-35.0) ng/L B-Natriuretic Peptide 25 (<100) pg/mL Total Protein 6.5 (6.5-8.0) g/dL Albumin 3.9 (3.5-5.0) g/dL Lipase 67 (8-78) U/L Ethyl Alcohol mg/dL COVID-19 (ANT) (Negative) COVID-19 Clin Com 12/07/21 12/08/21 Range/Units 00:05 00:40 WBC (4.8-10.8) X10*3/uL RBC (4.60-5.80) X10*6/uL Hgb (14.0-18.0) g/dl Hct (42.0-52.0) % MCV (80.0-98.0) fL MCH (27.0-33.0) pg MCHC (31.0-36.0) g/dl RDW (11.0-16.0) % Plt Count (160-400) X10*3/uL MPV (9.4-12.4) fL Immature Gran % (Auto) (0.0-0.4) % Neut % (Auto) (45-73) % Lymph % (Auto) (20-40) % [place] % (Auto) (2-11) % Eos % (Auto) (0-4) % Baso % (Auto) (0-2) % Lymph # (Auto) (1.2-4.9) X10*3/uL [place] # (Auto) (0.1-1.2) X10*3/uL Eos # (Auto) (0.0-0.4) X10*3/uL Baso # (Auto) (0.0-0.2) X10*3/uL Abs Immat Gran (auto) (0.00-0.03) X10*3/uL Absolute Neuts (auto) (2.0-8.3) x10*3/uL Absolute Nucleated RBC (0.0-0.012) X10*3/uL Nucleated RBC % (auto) (0.0-0.2) /100WBC Sodium (135-145) mmol/L Potassium (3.3-5.1) mmol/L Chloride (96-108) mmol/L Carbon Dioxide (22-29) mmol/L Anion Gap (12-20) BUN (9-16) mg/dL Creatinine (0.5-1.4) mg/dL Estim Creat Clear Calc Estimated GFR Random Glucose (60-115) mg/dL Calcium (8.4-10.2) mg/dL Magnesium (1.6-2.6) mg/dL Total Bilirubin (0.0-1.0) mg/dL AST (5-37) U/L ALT (0-40) U/L Alkaline Phosphatase (39-117) U/L Troponin I High Sens (<3.5-35.0) ng/L B-Natriuretic Peptide (<100) pg/mL Total Protein (6.5-8.0) g/dL Albumin (3.5-5.0) g/dL Lipase (8-78) U/L Ethyl Alcohol < 10 mg/dL COVID-19 (ANT) Negative (Negative) COVID-19 Clin Com See Note Critical Care Time Critical Care Time Critical Care Time: No Discharge Plan Discharge Clinical Impression: Abdominal pain Patient Disposition: Home, Self-Care Prescriptions: No Action furosemide 40 mg tablet 40 mg PO DAILY 0RF metformin 500 mg tablet 500 mg PO BID 0RF bupropion HCl 150 mg tablet sustained-release 12 hr 150 mg PO BID 0RF carvedilol 25 mg tablet 25 mg PO BID 0RF nicotine (polacrilex) 2 mg gum 1 ea PO Q2H PRN (Reason: Nicotine Cravings) 0RF isosorbide mononitrate 30 mg tablet extended release 24 hr 60 mg PO DAILY 0RF clopidogrel 75 mg tablet 75 mg PO DAILY 0RF spironolactone 25 mg tablet 25 mg PO BID 0RF amlodipine 10 mg tablet 10 mg PO QPM 0RF hydralazine 100 mg tablet 100 tab PO TID 0RF omeprazole 20 mg capsule,delayed release(DR/EC) 20 mg PO DAILY 0RF losartan 100 mg tablet 100 mg PO DAILY 0RF fluticasone propionate 50 mcg/actuation spray,suspension 2 spray intranasal DAILY 0RF rosuvastatin 40 mg tablet 40 mg PO BEDTIME 0RF cholecalciferol (vitamin D3) 25 mcg (1,000 unit) tablet 1,000 unit PO DAILY 0RF calcium carbonate-vitamin D3 [Oyster Shell Calcium-Vit D3] 500 mg(1,250mg) -400 unit tablet 1 tab PO BID 0RF buprenorphine-naloxone [Suboxone] 8-2 mg film 2 strip sublingual DAILY 0RF tramadol 50 mg tablet 50 mg PO Q8H PRN (Reason: severe pain (scale score 7-10)) Qty: 20 0RF albuterol sulfate 0.63 mg/3 mL solution for nebulization 0.63 mg inhalation Q4-6H PRN0RF melatonin 10 mg capsule 10 mg PO BEDTIME PRN0RF nitroglycerin 0.4 mg tablet, sublingual 0.4 mg sublingual Q5M PRN0RF Rx Instructions: do not exceed 3 doses per episode trazodone 100 mg tablet 100 mg PO BEDTIME PRN0RF ondansetron HCl 4 mg tablet 4 mg PO Q8H 0RF diclofenac sodium 1 % gel 2 g topical QID 0RF Rx Instructions: apply to single elbow, wrist or hand; for hand includes palm/fingers/back of hand Senna Plus 8.6-50 mg capsule 1 tab-cap PO BID PRN0RF Trelegy Ellipta 200-62.5-25 mcg blister with device 1 inh inhalation DAILY 30 Days Qty: 60 12RF albuterol sulfate [ProAir HFA] 90 mcg/actuation HFA aerosol inhaler 2 puff inhalation Q4H PRN (Reason: Wheezing) 30 Days Qty: 8.5 11RF nicotine 14 mg/24 hr patch 24 hour 1 patch transdermal DAILY 28 Days Qty: 28 3RF
[2021-12-07] MEDS: ondansetron HCL 4 MG/2 ML VIAL IVPUSH (23:58)
[2021-12-08 00:45] LABS: MANUAL DIFF FLAG NO
[2021-12-08 00:46] LABS: Basophils Percent Auto 0.1 % (0-2); Eosinophils Absolute Auto 0.2 X10*3/uL (0.0-0.4); Eosinophils Percent Auto 1.7 % (0-4); Hemoglobin 12.3 g/dl (14.0-18.0); Imm Gran Abs Auto 0.04 X10*3/uL (0.00-0.03); Imm Gran Pct Auto 0.4 % (0.0-0.4); Lymphocytes Absolute Auto 2.1 X10*3/uL (1.2-4.9); Lymphocytes Percent Auto 21.5 % (20-40); Mean Corpuscular HGB Conc 30.8 g/dl (31.0-36.0); Mean Corpuscular Hemoglobin 24.1 pg (27.0-33.0); Mean Corpuscular Volume 78.4 fL (80.0-98.0); Mean Platelet Volume 11.2 fL (9.4-12.4); Monocytes Absolute Auto 1.1 X10*3/uL (0.1-1.2); Monocytes Percent Auto 10.6 % (2-11); Neutrophils Absolute Auto 6.5 x10*3/uL (2.0-8.3); Neutrophils Percent Auto 65.7 % (45-73); Platelet Count 354 X10*3/uL (160-400); Red Cell Distribution Width 15.1 % (11.0-16.0); White Blood Count 9.9 X10*3/uL (4.8-10.8)
[2021-12-08] MEDS: Morphine Sulfate 4 MG/ML CARTRIDGE IVPUSH (00:54)
[2021-12-08 01:17] LABS: Alanine Aminotransferase 15 U/L (0-40); Albumin Level 3.9 g/dL (3.5-5.0); Alkaline Phosphatase 95 U/L (39-117); Anion Gap 19 (12-20); Aspartate Amino Transferase 26 U/L (5-37); B Type Natriuretic Peptide 25 pg/mL (<100); Bilirubin Total 0.5 mg/dL (0.0-1.0); Blood Urea Nitrogen 22 mg/dL (9-16); Calcium 9.7 mg/dL (8.4-10.2); Carbon Dioxide 23 mmol/L (22-29); Chloride 102 mmol/L (96-108); Creatinine Clr Calc Pharmacy 59.2; Estimated Glomerular Filt Rate 39; Glucose Random 151 mg/dL (60-115); Lipase 67 U/L (8-78); Magnesium 2.1 mg/dL (1.6-2.6); Potassium 4.1 mmol/L (3.3-5.1); Sodium 140 mmol/L (135-145); Total Protein 6.5 g/dL (6.5-8.0); Troponin-I High Sensitivity 14.9 ng/L (<3.5-35.0)
[2021-12-08 01:29] LABS: COVID-19 Test Negative (Negative)
[2021-12-08 01:30] LABS: Ethanol < 10 mg/dL
[2021-12-08 05:16] VITALS: BP 172/85; PULSE 83; RESP 19; TEMP 37.1; O2SAT 97
[2021-12-08] MEDS: 0.9 % Sodium Chloride 1,000 ML 999 ML IV (05:49)
[2021-12-08 06:02] LABS: Lactic Acid 0.8 mmol/L (0.5-2.0)
[2021-12-08 06:15] LABS: Troponin-I High Sensitivity 30.6 ng/L (<3.5-35.0)
[2021-12-08 06:25] LABS: Appearance Urine HAZY; Color Urine YELLOW; Glucose Urine UA NEG (NEG); Leukocyte Esterase Urine NEG (NEG); Nitrite Urine NEG (NEG); PH 8.5 (5.0-8.0); Urine Blood NEG (NEG); Urine Ketones NEG (NEG); Urine Protein TRACE MG/DL (NEG-TRACE)
[2021-12-08 06:43] LABS: Amphetamine Screen Urine Not Detected (Not Detect); Barbiturates, Urine Not Detected (Not Detect); Benzodiazepines Screen Urine Not Detected (Not Detect); Cannabinoid Screen Urine POSITIVE (Not Detect); Cocaine Screen Urine Not Detected (Not Detect); Fentanyl, urine POSITIVE (Not Detect); Opiate Screen Urine POSITIVE (Not Detect); Phencyclidine Screen Urine Not Detected (Not Detect)
[2021-12-08 07:22] VITALS: BP 187/82; PULSE 71; RESP 17; TEMP 37.4; O2SAT 93
== END 2021-12-08 08:20 | disposition home or self-care (01) ==
PROVIDERS: Physician Assistant; Emergency Provider Emergency Medicine
DX: F11.13 Opioid abuse with withdrawal (principal); R10.9 Unspecified abdominal pain; R06.02 Shortness of breath; F17.200 Nicotine dependence, unspecified, uncomplicated; Z71.6 Tobacco abuse counseling; Z20.822 Contact with and (suspected) exposure to COVID-19; Z71.51 Drug abuse counseling and surveillance of drug abuser; Z79.899 Other long term (current) drug therapy
CPT/HCPCS: 36415; 71045; 74176; 80053; 80307; 81003; 82077; 82550; 83605; 83690; 83735; 83880; 84484; 85025; 87040; 87635; 93005; 96361; 96374; 96375; 99284; 99285; J2060; J2270; J2405

== ENCOUNTER 2021-12-24 07:40 | Outpatient (REF) | payer MEDICAID, SELFPAY ==
--- NOTE | ~2021-12-24 | XR_ITS ---
EXAMINATION: XR ANKLE, LEFT CLINICAL INFORMATION: Pain. Fracture. COMPARISON: Previous x-ray most recent 11/12/2021 TECHNIQUE: AP, lateral, and mortise views of the left ankle. FINDINGS: There is an oblique fracture of the distal shaft of the fibula. Fracture line is still seen. There is surrounding bony callus formation. This is similar to previous exam most recent 11/12/2021. There is a soft tissue ossification or calcification adjacent to the inferior medial malleolus. This is similar to previous exams and likely related to avulsion fracture. The ankle mortise is normal. There is diffuse soft tissue swelling. There may be an ankle joint effusion. There is a calcaneal spur at the Achilles tendon insertion. XR/XR ankle LT min 3V IMPRESSION: Stable appearance to the distal fibular shaft fracture and avulsion fracture of the medial malleolus.
== END 2021-12-24 07:41 | disposition home or self-care (01) ==
LOC: HO.HOSX 07:40
PROVIDERS: Visit Provider Physician Assistant
DX: M17.0 Bilateral primary osteoarthritis of knee (principal); M25.579 Pain in unspecified ankle and joints of unspecified foot; F17.200 Nicotine dependence, unspecified, uncomplicated; S82.832D Other fracture of upper and lower end of left fibula, subsequent encounter for closed fracture with routine healing; E11.9 Type 2 diabetes mellitus without complications
CPT/HCPCS: 20610; 73610; 99212; J1020

== ENCOUNTER → 2022-01-01 15:30 | Outpatient (REF) | payer MEDICAID, SELFPAY | LOC: HO.SL 15:30 | PROVIDERS: PCP Internal Medicine; Visit Provider Hospitalist | DX: G47.33 Obstructive sleep apnea (adult) (pediatric) (principal) | CPT/HCPCS: 95806 ==

== ENCOUNTER 2022-02-19 17:02 | Emergency (ER) | payer MEDICAID, SELFPAY ==
--- NOTE | ~2022-02-19 | XR_ITS ---
EXAMINATION: XR CHEST CLINICAL INFORMATION: Shortness of breath COMPARISON: 12/08/2021 TECHNIQUE: Frontal view of the chest was obtained. FINDINGS: Cardiomediastinal silhouette is stable. Low lung volumes. Mild bronchial wall thickening without consolidation, pleural effusion or pneumothorax. XR/XR chest 1V IMPRESSION: Mild bronchial wall thickening. No consolidation.
[2022-02-19 17:41] VITALS: BP 215/104; PULSE 68; RESP 18; TEMP 36.8; O2SAT 97; BMI 48.7
--- NOTE | 2022-02-19 19:36 | ECG_ITS ---
Test Reason : SWOLLEN LEGS Blood Pressure : / mmHG Vent. Rate : 069 BPM Atrial Rate : 069 BPM P-R Int : 144 ms QRS Dur : 100 ms QT Int : 412 ms P-R-T Axes : 039 019 097 degrees QTc Int : 441 ms Normal sinus rhythm with sinus arrhythmia Nonspecific T wave abnormality Abnormal ECG When compared with ECG of 08-DEC-2021 01:07, Non-specific change in ST segment in Inferior leads Nonspecific T wave abnormality, worse in Lateral leads Referred By: Generic ED Physician Electronically Signed By:ALFONZO WAY MD
[2022-02-19 19:58] LABS: MANUAL DIFF FLAG NO
[2022-02-19 20:01] LABS: Basophils Percent Auto 0.1 % (0-2); Eosinophils Absolute Auto 0.2 X10*3/uL (0.0-0.4); Hematocrit 37.9 % (42.0-52.0); Hemoglobin 11.2 g/dl (14.0-18.0); Imm Gran Abs Auto 0.03 X10*3/uL (0.00-0.03); Imm Gran Pct Auto 0.4 % (0.0-0.4); Lymphocytes Absolute Auto 1.3 X10*3/uL (1.2-4.9); Lymphocytes Percent Auto 16.1 % (20-40); Mean Corpuscular HGB Conc 29.6 g/dl (31.0-36.0); Mean Corpuscular Hemoglobin 23.2 pg (27.0-33.0); Mean Corpuscular Volume 78.5 fL (80.0-98.0); Mean Platelet Volume 10.2 fL (9.4-12.4); Monocytes Absolute Auto 0.7 X10*3/uL (0.1-1.2); Monocytes Percent Auto 8.9 % (2-11); Neutrophils Absolute Auto 5.9 x10*3/uL (2.0-8.3); Neutrophils Percent Auto 72.5 % (45-73); Platelet Count 219 X10*3/uL (160-400); Red Blood Count 4.83 X10*6/uL (4.60-5.80); White Blood Count 8.2 X10*3/uL (4.8-10.8)
[2022-02-19 20:14] LABS: Anion Gap 12 (12-20); Blood Urea Nitrogen 25 mg/dL (9-16); Calcium 8.9 mg/dL (8.4-10.2); Carbon Dioxide 30 mmol/L (22-29); Chloride 108 mmol/L (96-108); Creatinine Clr Calc Pharmacy 85.8; Estimated Glomerular Filt Rate > 60; Glucose Random 195 mg/dL (60-115); Sodium 145 mmol/L (135-145)
[2022-02-19 20:21] LABS: B Type Natriuretic Peptide 79 pg/mL (<100); Troponin-I High Sensitivity 28.6 ng/L (<3.5-35.0)
--- NOTE | 2022-02-19 22:03 | PC.NURSE ---
Not answering when called in WR, ?LWT
== END 2022-02-19 22:12 | disposition left against medical advice (07) ==
PROVIDERS: Emergency Provider Emergency Medicine; PCP Internal Medicine
DX: R06.02 Shortness of breath (principal); R60.0 Localized edema; Z79.899 Other long term (current) drug therapy
CPT/HCPCS: 36415; 71045; 80048; 83880; 84484; 85025; 93005; 99282; 99283; 99284

== ENCOUNTER 2022-02-22 15:35 | Emergency (ER) | payer MEDICAID, SELFPAY ==
--- NOTE | ~2022-02-22 | XR_ITS ---
EXAMINATION: XR CHEST CLINICAL INFORMATION: Shortness of breath COMPARISON: 02/19/2022 TECHNIQUE: 2 views of the chest were obtained. FINDINGS: Mild vascular redistribution and pulmonary vascular congestion is suspected with prominence of central and upper lung zone vessels. There are no gross pleural effusions. The cardiomediastinal silhouette is stable. XR/XR chest 2V IMPRESSION: Probable pulmonary vascular congestion and redistribution indicative of congestive failure.
[2022-02-22 15:39] VITALS: BP 198/103; PULSE 80; RESP 19; TEMP 36.6; O2SAT 98; BMI 48.4
--- NOTE | 2022-02-22 15:43 | ECG_ITS ---
Test Reason : SWOLLEN LEGS Blood Pressure : / mmHG Vent. Rate : 075 BPM Atrial Rate : 075 BPM P-R Int : 130 ms QRS Dur : 100 ms QT Int : 356 ms P-R-T Axes : 038 006 085 degrees QTc Int : 397 ms Normal sinus rhythm with sinus arrhythmia Nonspecific T wave abnormality Abnormal ECG When compared with ECG of 19-FEB-2022 19:38, No significant change was found Referred By: Generic ED Physician Electronically Signed By:ALFONZO WAY MD
[2022-02-22 16:19] LABS: MANUAL DIFF FLAG NO
[2022-02-22 16:20] LABS: Basophils Percent Auto 0.1 % (0-2); Eosinophils Absolute Auto 0.1 X10*3/uL (0.0-0.4); Eosinophils Percent Auto 1.6 % (0-4); Hematocrit 37.5 % (42.0-52.0); Hemoglobin 11.3 g/dl (14.0-18.0); Imm Gran Abs Auto 0.03 X10*3/uL (0.00-0.03); Imm Gran Pct Auto 0.4 % (0.0-0.4); Lymphocytes Absolute Auto 1.1 X10*3/uL (1.2-4.9); Lymphocytes Percent Auto 14.5 % (20-40); Mean Corpuscular HGB Conc 30.1 g/dl (31.0-36.0); Mean Corpuscular Hemoglobin 23.7 pg (27.0-33.0); Mean Corpuscular Volume 78.6 fL (80.0-98.0); Mean Platelet Volume 11.2 fL (9.4-12.4); Monocytes Absolute Auto 0.6 X10*3/uL (0.1-1.2); Monocytes Percent Auto 7.3 % (2-11); Neutrophils Absolute Auto 5.8 x10*3/uL (2.0-8.3); Neutrophils Percent Auto 76.1 % (45-73); Platelet Count 238 X10*3/uL (160-400); Red Blood Count 4.77 X10*6/uL (4.60-5.80); Red Cell Distribution Width 16.7 % (11.0-16.0); White Blood Count 7.6 X10*3/uL (4.8-10.8)
[2022-02-22 16:45] LABS: B Type Natriuretic Peptide 53 pg/mL (<100); Troponin-I High Sensitivity 27.4 ng/L (<3.5-35.0)
[2022-02-22 16:48] LABS: Anion Gap 9 (12-20); Blood Urea Nitrogen 24 mg/dL (9-16); Carbon Dioxide 30 mmol/L (22-29); Chloride 107 mmol/L (96-108); Creatinine Clr Calc Pharmacy 81.2; Estimated Glomerular Filt Rate 60; Glucose Random 169 mg/dL (60-115); Potassium 4.2 mmol/L (3.3-5.1); Sodium 142 mmol/L (135-145)
--- NOTE | 2022-02-22 17:53 | ED.GENADULT ---
HPI - General Adult General Chief complaint: General Medical Stated complaint: SOB/diff breathing Time Seen by Provider: 02/22/22 17:37 History of Present Illness HPI narrative: Patient is a 61-year-old male with a history of diastolic dysfunction history of COPD history of diabetes history of bacteremia left the hospital few days ago patient has been compliant with his medication. Presented today because when he walks he feels more short of breath. Patient denies any diaphoresis has a history of leg swelling. Denies any new rash denies any fever denies any recreational drug use he is currently on methadone denies any chest pain denies any diaphoresis denies any focal weakness patient still waiting for his CPAP machine. Patient from home. No pain on urination no cough no congestion or upper respiratory symptoms. No chest pain. No dyspnea on exertion. Able to ambulate. No orthopnea. Related Data Home Medications Medication Instructions Recorded Confirmed amlodipine 10 mg tablet 10 mg PO QPM 02/12/21 10/15/21 buprenorphine 8 mg-naloxone 2 mg 2 strip sublingual DAILY 02/12/21 10/15/21 sublingual film (Suboxone) bupropion HCl 150 mg tablet,12 hr 150 mg PO BID 02/12/21 10/15/21 sustained-release calcium carbonate 500 mg-vitamin 1 tab PO BID 02/12/21 10/15/21 D3 10 mcg (400 unit) tablet (Oyster Shell Calcium-Vitamin D3) carvedilol 25 mg tablet 25 mg PO BID 02/12/21 10/15/21 cholecalciferol (vitamin D3) 25 1,000 unit PO DAILY 02/12/21 10/15/21 mcg (1,000 unit) tablet clopidogrel 75 mg tablet 75 mg PO DAILY 02/12/21 10/15/21 fluticasone propionate 50 2 spray intranasal DAILY 02/12/21 10/15/21 mcg/actuation nasal spray,suspension furosemide 40 mg tablet 40 mg PO DAILY 02/12/21 10/15/21 hydralazine 100 mg tablet 100 tab PO TID 02/12/21 10/15/21 isosorbide mononitrate 30 mg 60 mg PO DAILY 02/12/21 10/15/21 tablet,extended release 24 hr losartan 100 mg tablet 100 mg PO DAILY 02/12/21 10/15/21 metformin 500 mg tablet 500 mg PO BID 02/12/21 10/15/21 nicotine (polacrilex) 2 mg gum 1 ea PO Q2H PRN Nicotine Cravings 02/12/21 10/15/21 omeprazole 20 mg capsule,delayed 20 mg PO DAILY 02/12/21 10/15/21 release rosuvastatin 40 mg tablet 40 mg PO BEDTIME 02/12/21 10/15/21 spironolactone 25 mg tablet 25 mg PO BID 02/12/21 10/15/21 albuterol sulfate 0.63 mg/3 mL 0.63 mg inhalation Q4-6H PRN 10/16/21 solution for nebulization diclofenac sodium 1 % topical gel 2 g topical QID 10/16/21 melatonin 10 mg capsule 10 mg PO BEDTIME PRN 10/16/21 nitroglycerin 0.4 mg sublingual 0.4 mg sublingual Q5M PRN 10/16/21 tablet ondansetron HCl 4 mg tablet 4 mg PO Q8H 10/16/21 sennosides 8.6 mg-docusate sodium 1 tab-cap PO BID PRN 10/16/21 50 mg capsule (Senna Plus) trazodone 100 mg tablet 100 mg PO BEDTIME PRN 10/16/21 Previous Rx's Medication Instructions Recorded tramadol 50 mg tablet 50 mg PO Q8H PRN severe pain 09/20/21 (scale score 7-10) #20 tabs albuterol sulfate 90 mcg/actuation 2 puff inhalation Q4H PRN Wheezing 10/16/21 aerosol inhaler (ProAir HFA) 30 days #8.5 grams fluticasone fur. 200 mcg-umeclid 1 inh inhalation DAILY 30 days #60 10/16/21 62.5 mcg-vilant 25 mcg ea inhalat.powder (Trelegy Ellipta) nicotine 14 mg/24 hr daily 1 patch transdermal DAILY 28 days 10/16/21 transdermal patch #28 ea Allergies Allergy/AdvReac Type Severity Reaction Status Date / Time crab [CRAB] Allergy Unknown ANAPHYLAXIS Verified 12/24/21 13:08 lisinopril [LISINOPRIL] Allergy Unknown cough Verified 12/24/21 13:08 Penicillins [PCN] Allergy Unknown RASH Verified 12/24/21 13:08 Sulfa (Sulfonamide Allergy Unknown RASH Verified 12/24/21 13:08 Antibiotics) [SULFA (SULFONAMIDE ANTIBIOTICS)] Review of Systems Review of Systems: No fever no chills, positive shortness of breath, no chest pain or diaphoresis. No significant changes in medication patient compliant with medication Yes all other systems are reviewed and are negative [facility] Past Medical History Attestation statement: The following information was validated with the patient. Medical History Asthma Congestive heart failure Coronary artery disease Diabetes Hypertension Normocytic anemia Obesity Opioid abuse Streptococcal bacteremia Surgical History H/O hernia repair Hx of colonoscopy Family History Family History Father No problems noted. Mother No problems noted. Social History Social History Household Members: None Housing: House Do you presently have visiting nurse or other home services: No Alcohol intake: never Patient Tobacco Use Status: Current everyday Tobacco user Advance Directives: No Advance Directives Information Provided: No service: No Current occupational status: disabled Current occupation: [employer] handed Physical Exam ED Vital Signs: Vital Signs - 24 hr 02/22/22 15:39 02/22/22 18:08 Temperature 98 F Pulse Rate 80 73 Respiratory Rate 19 18 Blood Pressure 198/103 H 180/104 H Pulse Oximetry 98 95 Oxygen Delivery Method Room Air Room Air BMI result Body Mass Index 48.4 Appearance: Alert. Oriented X3. No acute distress. Eyes: Pupils equal, round and reactive to light. ENT: Pharynx normal. Neck: Normal inspection. Neck supple. No lymph nodes noted. No crepitus CVS: Normal heart rate and rhythm. Pulses normal. Normal S1 and S2 Respiratory: No respiratory distress. Breath sounds normal. No Wheezing. No rales Abdomen: Soft and nontender. No rigidity. No distention. good BS x4 Skin: Skin warm and dry. Normal skin color. Normal skin turgor. Extremities: Positive 2+ pitting edema bilateral lower extremity. Neurovascular intact to all extremities. No Lacerations. No Rash Neuro: Oriented X 3. No motor deficit. No sensory deficit. Moving all extermities. No slurred speech Medical Decision Making MDM Narrative Medical decision making narrative: Patient's O2 sats 98% on room air. His EKG showed a sinus pattern heart rate is 75 [place] QRS QT within normal limits there is nonspecific T-wave flattening noted over the lateral leads when compared to an EKG from 3 days prior it is unchanged. Patient's BMP is normal there is no evidence for congestive heart failure patient's chest x-ray showed no overt CHF there is some congestion question secondary to patient's body habitus. Patient has been taking Lasix will continue to take Lasix at home. Ambulated patient in the emergency department stable to walk 50 ft back and forth without any difficulties. No shortness of breath exerted. Patient's post ambulation O2 sat was 96% on room air. He is in no distress. Has no fever no chills. White count is normal. Case discussed with him the need to take his medication stress. Need for close follow-up. He is currently in stable condition. Explained to patient about the need for close follow-up. His blood pressure is elevated patient states understanding will be compliant with his medications. Currently in stable condition. Lab Data Result diagrams: 02/22/22 16:14 02/22/22 16:14 Labs: Lab Results 02/22/22 02/22/22 02/22/22 Range/Units 16:14 16:14 16:14 WBC 7.6 (4.8-10.8) X10*3/uL RBC 4.77 (4.60-5.80) X10*6/uL Hgb 11.3 L (14.0-18.0) g/dl Hct 37.5 L (42.0-52.0) % MCV 78.6 L (80.0-98.0) fL MCH 23.7 L (27.0-33.0) pg MCHC 30.1 L (31.0-36.0) g/dl RDW 16.7 H (11.0-16.0) % Plt Count 238 (160-400) X10*3/uL MPV 11.2 (9.4-12.4) fL Immature Gran % (Auto) 0.4 (0.0-0.4) % Neut % (Auto) 76.1 H (45-73) % Lymph % (Auto) 14.5 L (20-40) % Elmore % (Auto) 7.3 (2-11) % Eos % (Auto) 1.6 (0-4) % Baso % (Auto) 0.1 (0-2) % Lymph # (Auto) 1.1 L (1.2-4.9) X10*3/uL Elmore # (Auto) 0.6 (0.1-1.2) X10*3/uL Eos # (Auto) 0.1 (0.0-0.4) X10*3/uL Baso # (Auto) 0.0 (0.0-0.2) X10*3/uL Abs Immat Gran (auto) 0.03 (0.00-0.03) X10*3/uL Absolute Neuts (auto) 5.8 (2.0-8.3) x10*3/uL Absolute Nucleated RBC 0.000 (0.0-0.012) X10*3/uL Nucleated RBC % (auto) 0.0 (0.0-0.2) /100WBC Sodium 142 (135-145) mmol/L Potassium 4.2 (3.3-5.1) mmol/L Chloride 107 (96-108) mmol/L Carbon Dioxide 30 H (22-29) mmol/L Anion Gap 9 L (12-20) BUN 24 H (9-16) mg/dL Creatinine 1.22 (0.5-1.4) mg/dL Estim Creat Clear Calc 81.2 Estimated GFR 60 Random Glucose 169 H (60-115) mg/dL Calcium 9.0 (8.4-10.2) mg/dL Troponin I High Sens 27.4 (<3.5-35.0) ng/L B-Natriuretic Peptide 53 (<100) pg/mL Discharge Plan Discharge Clinical Impression: Obstructive sleep apnea, COPD (chronic obstructive pulmonary disease), Hypertension Patient Disposition: Home, Self-Care Instructions: Sleep Apnea (DC), Chronic Lung Disease and Infection Prevention (ED) Prescriptions: No Action furosemide 40 mg tablet 40 mg PO DAILY metformin 500 mg tablet 500 mg PO BID bupropion HCl 150 mg tablet sustained-release 12 hr 150 mg PO BID carvedilol 25 mg tablet 25 mg PO BID nicotine (polacrilex) 2 mg gum 1 ea PO Q2H PRN (Reason: Nicotine Cravings) isosorbide mononitrate 30 mg tablet extended release 24 hr 60 mg PO DAILY clopidogrel 75 mg tablet 75 mg PO DAILY spironolactone 25 mg tablet 25 mg PO BID amlodipine 10 mg tablet 10 mg PO QPM hydralazine 100 mg tablet 100 tab PO TID omeprazole 20 mg capsule,delayed release(DR/EC) 20 mg PO DAILY losartan 100 mg tablet 100 mg PO DAILY fluticasone propionate 50 mcg/actuation spray,suspension 2 spray intranasal DAILY rosuvastatin 40 mg tablet 40 mg PO BEDTIME cholecalciferol (vitamin D3) 25 mcg (1,000 unit) tablet 1,000 unit PO DAILY calcium carbonate-vitamin D3 [Oyster Shell Calcium-Vit D3] 500 mg(1,250mg) -400 unit tablet 1 tab PO BID buprenorphine-naloxone [Suboxone] 8-2 mg film 2 strip sublingual DAILY tramadol 50 mg tablet 50 mg PO Q8H PRN (Reason: severe pain (scale score 7-10)) Qty: 20 0RF albuterol sulfate 0.63 mg/3 mL solution for nebulization 0.63 mg inhalation Q4-6H PRN melatonin 10 mg capsule 10 mg PO BEDTIME PRN nitroglycerin 0.4 mg tablet, sublingual 0.4 mg sublingual Q5M PRN Rx Instructions: do not exceed 3 doses per episode trazodone 100 mg tablet 100 mg PO BEDTIME PRN ondansetron HCl 4 mg tablet 4 mg PO Q8H diclofenac sodium 1 % gel 2 g topical QID Rx Instructions: apply to single elbow, wrist or hand; for hand includes palm/fingers/back of hand Senna Plus 8.6-50 mg capsule 1 tab-cap PO BID PRN Trelegy Ellipta 200-62.5-25 mcg blister with device 1 inh inhalation DAILY 30 Days Qty: 60 12RF albuterol sulfate [ProAir HFA] 90 mcg/actuation HFA aerosol inhaler 2 puff inhalation Q4H PRN (Reason: Wheezing) 30 Days Qty: 8.5 11RF nicotine 14 mg/24 hr patch 24 hour 1 patch transdermal DAILY 28 Days Qty: 28 3RF Referrals: Sasha Tipton MD [Primary Care Provider] - (Please follow-up with your doctor in 1-2 days for blood pressure recheck. Please take all your medications.)
--- NOTE | 2022-02-22 18:02 | PC.NURSE ---
Pt ambulated in the pugh no increased WOB. SpO2 remained above 94%.
[2022-02-22 18:08] VITALS: BP 180/104; PULSE 73; RESP 18; O2SAT 95
== END 2022-02-22 18:18 | disposition home or self-care (01) ==
PROVIDERS: Emergency Provider Emergency Medicine Emergency Medical Services; PCP Internal Medicine
DX: G47.33 Obstructive sleep apnea (adult) (pediatric) (principal); J44.9 Chronic obstructive pulmonary disease, unspecified; R06.02 Shortness of breath; I10 Essential (primary) hypertension; F17.200 Nicotine dependence, unspecified, uncomplicated; Z71.6 Tobacco abuse counseling; Z79.899 Other long term (current) drug therapy
CPT/HCPCS: 36415; 71046; 80048; 83880; 84484; 85025; 93005; 99283

== ENCOUNTER → 2022-02-28 13:03 | Outpatient (BNVA) | payer MEDICAID, SELFPAY | PROVIDERS: PCP Internal Medicine; Visit Provider Hospitalist | DX: J44.9 Chronic obstructive pulmonary disease, unspecified (principal); G47.33 Obstructive sleep apnea (adult) (pediatric); J30.9 Allergic rhinitis, unspecified; J98.4 Other disorders of lung; F17.200 Nicotine dependence, unspecified, uncomplicated; Z79.899 Other long term (current) drug therapy | CPT/HCPCS: 99212 ==

== ENCOUNTER 2022-03-08 07:33 | Emergency (ER) | payer MEDICAID, SELFPAY ==
--- NOTE | ~2022-03-08 | CT_ITS ---
EXAMINATION: CT HEAD WITHOUT CONTRAST CLINICAL INFORMATION: Headache. COMPARISON: None TECHNIQUE: Contiguous axial imaging was performed from the skull base to vertex without intravenous administration of contrast. Coronal and sagittal reformatted images were obtained. This CT examination was performed using dose optimization techniques as appropriate, variously including the following: *Automated exposure control *Adjustment of mA and/or kV according to patient size (this includes techniques or standardized protocols for targeted exams where dose is matched to indication/reason for exam; i.e. extremities or head) *Use of iterative reconstruction technique DLP: 718.14 mGy-cm FINDINGS: There is no evidence of acute intracranial hemorrhage or territorial infarction. No abnormal mass effect or midline shift is seen. Katz to white matter differentiation is well preserved. No extra-axial fluid collections are identified. The ventricles are normal in size. Probable bilateral basal ganglia lacunar infarcts. There is no abnormal attenuation within the brain parenchyma. The osseous structures and soft tissues are normal. The mastoid air cells and visualized portions of the paranasal sinuses are well aerated. CT/CT head/brain wo con IMPRESSION: No acute intracranial pathology.
--- NOTE | ~2022-03-08 | CT_ITS ---
EXAMINATION: CT ABDOMEN AND PELVIS WITHOUT CONTRAST CLINICAL INFORMATION: Left flank pain. COMPARISON: 12/08/2021 CT scan of the abdomen and pelvis. TECHNIQUE: Multidetector volumetric imaging was performed from the superior aspect of the liver through the pubic symphysis. Sagittal and coronal reformatted images were obtained on the technologist's workstation. This CT examination was performed using dose optimization techniques as appropriate, variously including the following: *Automated exposure control *Adjustment of mA and/or kV according to patient size (this includes techniques or standardized protocols for targeted exams where dose is matched to indication/reason for exam; i.e. extremities or head) *Use of iterative reconstruction technique DLP: 1327.57 mGy-cm FINDINGS: LUNG BASES: The visualized lung bases are unremarkable. LIVER, GALLBLADDER, AND BILIARY TREE: Unremarkable. PANCREAS: Mild fatty atrophy. SPLEEN: Unremarkable. ADRENAL GLANDS: Unremarkable. KIDNEYS AND URETERS: Punctate nonobstructing intrarenal calculi/calcifications are seen bilaterally. An exophytic cyst off of the lower pole the left kidney measures 1.3 cm (image 72, series 18). No hydroureteronephrosis. BLADDER: Unremarkable. GASTROINTESTINAL TRACT: Very small hiatal hernia. The remainder of the stomach is unremarkable. The small bowel and appendix are unremarkable. The colon and rectum are unremarkable. ABDOMINAL WALL: Very small fat-containing umbilical hernia. LYMPH NODES: No lymphadenopathy. VASCULAR: Unremarkable. PELVIC VISCERA: Moderate prostatomegaly with a volume of approximately 65 mL. OSSEOUS STRUCTURES: Mild multilevel degenerative disc disease and marginal osteophyte formation. CT/CT abdomen pelvis wo con IMPRESSION: 1. No acute intra-abdominal/pelvic abnormality. No hydroureteronephrosis. Punctate nonobstructing intrarenal calculi/calcifications bilaterally. Small left lower pole renal cyst and shows benign features not requiring follow-up. 2. Other incidental findings detailed above. Fleischner guidelines were followed.
[2022-03-08 08:10] VITALS: BP 202/98; PULSE 67; RESP 20; TEMP 36.1; O2SAT 95; BMI 51.6
--- NOTE | 2022-03-08 08:29 | ED_ITS ---
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 Limitations: no limitations History of Present Illness HPI narrative: 61 yo male with hx of HLD, COPD, DM, obesity, HTN on methadone daily comes in with 5 days of L sided abdominal pain and diarrhea no recnet abx use no sick contacts, headache x 3 days no falls - states he takes his BP medications every day started at rest does have stuffy nose - no fevers MD elicited complaint: abdominal pain Pertinent past history: none Onset (ago): day(s) (5) Pain Consistency: constant Location: LUQ and LLQ Severity: moderate Quality: aching Radiation: none Migration to: no migration Exacerbating factors: movement Relieving factors: nothing Context: other (hx of headaches in the past) Associated symptoms: diarrhea Related Data Home Medications Medication Instructions Recorded Confirmed amlodipine 10 mg tablet 10 mg PO QPM 02/12/21 10/15/21 buprenorphine 8 mg-naloxone 2 mg 2 strip sublingual DAILY 02/12/21 10/15/21 sublingual film (Suboxone) bupropion HCl 150 mg tablet,12 hr 150 mg PO BID 02/12/21 10/15/21 sustained-release calcium carbonate 500 mg-vitamin 1 tab PO BID 02/12/21 10/15/21 D3 10 mcg (400 unit) tablet (Oyster Shell Calcium-Vitamin D3) carvedilol 25 mg tablet 25 mg PO BID 02/12/21 10/15/21 cholecalciferol (vitamin D3) 25 1,000 unit PO DAILY 02/12/21 10/15/21 mcg (1,000 unit) tablet clopidogrel 75 mg tablet 75 mg PO DAILY 02/12/21 10/15/21 fluticasone propionate 50 2 spray intranasal DAILY 02/12/21 10/15/21 mcg/actuation nasal spray,suspension furosemide 40 mg tablet 40 mg PO DAILY 02/12/21 10/15/21 hydralazine 100 mg tablet 100 tab PO TID 02/12/21 10/15/21 isosorbide mononitrate 30 mg 60 mg PO DAILY 02/12/21 10/15/21 tablet,extended release 24 hr losartan 100 mg tablet 100 mg PO DAILY 02/12/21 10/15/21 metformin 500 mg tablet 500 mg PO BID 02/12/21 10/15/21 nicotine (polacrilex) 2 mg gum 1 ea PO Q2H PRN Nicotine Cravings 02/12/21 10/15/21 omeprazole 20 mg capsule,delayed 20 mg PO DAILY 02/12/21 10/15/21 release rosuvastatin 40 mg tablet 40 mg PO BEDTIME 02/12/21 10/15/21 spironolactone 25 mg tablet 25 mg PO BID 02/12/21 10/15/21 albuterol sulfate 0.63 mg/3 mL 0.63 mg inhalation Q4-6H PRN 10/16/21 solution for nebulization diclofenac sodium 1 % topical gel 2 g topical QID 10/16/21 melatonin 10 mg capsule 10 mg PO BEDTIME PRN 10/16/21 nitroglycerin 0.4 mg sublingual 0.4 mg sublingual Q5M PRN 10/16/21 tablet ondansetron HCl 4 mg tablet 4 mg PO Q8H 10/16/21 sennosides 8.6 mg-docusate sodium 1 tab-cap PO BID PRN 10/16/21 50 mg capsule (Senna Plus) trazodone 100 mg tablet 100 mg PO BEDTIME PRN 10/16/21 Previous Rx's Medication Instructions Recorded tramadol 50 mg tablet 50 mg PO Q8H PRN severe pain 09/20/21 (scale score 7-10) #20 tabs albuterol sulfate 90 mcg/actuation 2 puff inhalation Q4H PRN Wheezing 10/16/21 aerosol inhaler (ProAir HFA) 30 days #8.5 grams nicotine 14 mg/24 hr daily 1 patch transdermal DAILY 28 days 10/16/21 transdermal patch #28 ea fluticasone fur. 200 mcg-umeclid 1 inh inhalation DAILY 30 days #60 02/28/22 62.5 mcg-vilant 25 mcg ea inhalat.powder (Trelegy Ellipta) furosemide 20 mg tablet (Lasix) 20 mg PO DAILY #3 tabs 02/28/22 Allergies Allergy/AdvReac Type Severity Reaction Status Date / Time crab [CRAB] Allergy Unknown ANAPHYLAXIS Verified 02/28/22 13:12 lisinopril [LISINOPRIL] Allergy Unknown cough Verified 02/28/22 13:12 Penicillins [PCN] Allergy Unknown RASH Verified 02/28/22 13:12 Sulfa (Sulfonamide Allergy Unknown RASH Verified 02/28/22 13:12 Antibiotics) [SULFA (SULFONAMIDE ANTIBIOTICS)] Review of Systems Review of Systems Constitutional : No Weight loss, No Fever, No Chills ENT/Mouth : No sore throat, No Rhinorrhea, pos nasal congestion Eyes: No Swelling, No Redness Cardiovascular : No Chest Pain, No SOB, NoEdema Respiratory : No Cough, No Sputum, No Wheezing Gastrointestinal : no Nausea, no Vomiting, positive Diarrhea, positive abdominal Pain, No Hematochezia, No Melena Genitourinary : No Dysuria, No Urinary Frequency, No Hematuria, No Urgency Musculoskeletal : No joint pain, No Myalgias, No Joint Swelling Skin : No Skin Lesions, No rash Neuro : No Weakness, No Numbness, No Dizziness, pos Headache Psych : No Anxiety/Panic, No Depression Heme/Lymph: No Bruising, No Lymphadenopathy Endocrine : No Polyuria, No Polydipsia All other systems reviewed and are negative. FORMERLY [facility], 1928–1983 Past Medical History Attestation statement: The following information was validated with the patient. Medical History Asthma Asthma Chronic allergic rhinitis Chronic restrictive lung disease Congestive heart failure COPD (chronic obstructive pulmonary disease) Coronary artery disease Diabetes Hyperlipidemia Hypertension Normocytic anemia Obesity Obstructive sleep apnea Opioid abuse Pulmonary nodule Streptococcal bacteremia Surgical History H/O hernia repair Hx of colonoscopy Family History Family History Father No problems noted. Mother No problems noted. Social History Social History Household Members: None Housing: House Do you presently have visiting nurse or other home services: No Alcohol intake: never Patient Tobacco Use Status: Current everyday Tobacco user Advance Directives: No Advance Directives Information Provided: Yes service: No Current occupational status: disabled Current occupation: Rt handed Physical Exam ED Vital Signs: Vital Signs - 24 hr 03/08/22 08:10 03/08/22 10:46 03/08/22 11:00 Temperature 97.0 F Pulse Rate 67 64 Respiratory Rate 20 18 Blood Pressure 202/98 H 214/114 H 173/87 H Pulse Oximetry 95 96 Oxygen Delivery Method Room Air BMI result Body Mass Index 51.6 Appearance: Alert. Oriented X3. No acute distress. Eyes: Pupils equal, round and reactive to light. ENT: Pharynx normal. Neck: Normal inspection. Neck supple. no meningeal signs CVS: Normal heart rate and rhythm. Pulses normal. Respiratory: No respiratory distress. Breath sounds normal. Abdomen: Soft and obese, LL sided mild abdominal ttp no rebound or guarding Skin: Skin warm and dry. Normal skin color. Normal skin turgor. Extremities: No lower extremity edema. No calf ttp Neuro: Oriented X 3. No motor deficit. No sensory deficit. Course Course Course Narrative: no acute findings stable for DC has been asking to leave since arrival BP down has no pain now watching TV MDM - Abdominal Pain MDM Narrative Medical decision making narrative: 61 yo male with hx of HLD, COPD, DM, obesity, HTN on methadone daily comes in with L sided abdominal pain x 5 days wtih loose stools will obtain labs, UA, CT scan for constipation/colitis. 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 Dispo per results and findings. Lab Data Result diagrams: 03/08/22 10:27 03/08/22 10:27 Labs: Lab Results 03/08/22 03/08/22 03/08/22 Range/Units 10:16 10:27 10:27 WBC 8.7 (4.8-10.8) X10*3/uL RBC 5.24 (4.60-5.80) X10*6/uL Hgb 12.1 L (14.0-18.0) g/dl Hct 40.6 L (42.0-52.0) % MCV 77.5 L (80.0-98.0) fL MCH 23.1 L (27.0-33.0) pg MCHC 29.8 L (31.0-36.0) g/dl RDW 16.8 H (11.0-16.0) % Plt Count 256 (160-400) X10*3/uL MPV 10.4 (9.4-12.4) fL Immature Gran % (Auto) 0.3 (0.0-0.4) % Neut % (Auto) 81.2 H (45-73) % Lymph % (Auto) 11.8 L (20-40) % [place]field % (Auto) 5.4 (2-11) % Eos % (Auto) 1.2 (0-4) % Baso % (Auto) 0.1 (0-2) % Lymph # (Auto) 1.0 L (1.2-4.9) X10*3/uL [place] # (Auto) 0.5 (0.1-1.2) X10*3/uL Eos # (Auto) 0.1 (0.0-0.4) X10*3/uL Baso # (Auto) 0.0 (0.0-0.2) X10*3/uL Abs Immat Gran (auto) 0.03 (0.00-0.03) X10*3/uL Absolute Neuts (auto) 7.0 (2.0-8.3) x10*3/uL Absolute Nucleated RBC 0.000 (0.0-0.012) X10*3/uL Nucleated RBC % (auto) 0.0 (0.0-0.2) /100WBC PT 9.9 L (10.0-13.1) SEC INR 0.9 (0.9-1.1) Sodium (135-145) mmol/L Potassium (3.3-5.1) mmol/L Chloride (96-108) mmol/L Carbon Dioxide (22-29) mmol/L Anion Gap (12-20) BUN (9-16) mg/dL Creatinine (0.5-1.4) mg/dL Estim Creat Clear Calc Estimated GFR Random Glucose (60-115) mg/dL Calcium (8.4-10.2) mg/dL Magnesium (1.6-2.6) mg/dL Total Bilirubin (0.0-1.0) mg/dL Direct Bilirubin (0.0-0.5) mg/dL AST (5-37) U/L ALT (0-40) U/L Alkaline Phosphatase (39-117) U/L Total Protein (6.5-8.0) g/dL Albumin (3.5-5.0) g/dL Lipase (8-78) U/L Urine Color Urine Appearance Urine pH (5.0-8.0) Ur Specific [place] (1.005-1.025) Urine Protein (NEG-TRACE) MG/DL Urine Glucose (UA) (NEG) MG/DL Urine Ketones (NEG) MG/DL Urine Blood (NEG) Urine Nitrite (NEG) Ur Leukocyte Esterase (NEG) Urine RBC (0) /HPF Urine WBC (0-4) /HPF Ur Squamous Epith Cells /LPF Urine Bacteria /LPF Hyaline Casts /LPF Urine Opiates Screen (Not Detect) Urine Fentanyl Screen (Not Detect) Ur Barbiturates Screen (Not Detect) Ur Phencyclidine Scrn (Not Detect) Ur Amphetamines Screen (Not Detect) U Benzodiazepines Scrn (Not Detect) Urine Cocaine Screen (Not Detect) U Marijuana (THC) Screen (Not Detect) COVID-19 (ANT) Negative (Negative) COVID-19 Clin Com See Note 03/08/22 03/08/22 03/08/22 Range/Units 10:27 10:55 10:55 WBC (4.8-10.8) X10*3/uL RBC (4.60-5.80) X10*6/uL Hgb (14.0-18.0) g/dl Hct (42.0-52.0) % MCV (80.0-98.0) fL MCH (27.0-33.0) pg MCHC (31.0-36.0) g/dl RDW (11.0-16.0) % Plt Count (160-400) X10*3/uL MPV (9.4-12.4) fL Immature Gran % (Auto) (0.0-0.4) % Neut % (Auto) (45-73) % Lymph % (Auto) (20-40) % Whitfield % (Auto) (2-11) % Eos % (Auto) (0-4) % Baso % (Auto) (0-2) % Lymph # (Auto) (1.2-4.9) X10*3/uL [place] # (Auto) (0.1-1.2) X10*3/uL Eos # (Auto) (0.0-0.4) X10*3/uL Baso # (Auto) (0.0-0.2) X10*3/uL Abs Immat Gran (auto) (0.00-0.03) X10*3/uL Absolute Neuts (auto) (2.0-8.3) x10*3/uL Absolute Nucleated RBC (0.0-0.012) X10*3/uL Nucleated RBC % (auto) (0.0-0.2) /100WBC PT (10.0-13.1) SEC INR (0.9-1.1) Sodium 141 (135-145) mmol/L Potassium 4.6 (3.3-5.1) mmol/L Chloride 105 (96-108) mmol/L Carbon Dioxide 27 (22-29) mmol/L Anion Gap 14 (12-20) BUN 21 H (9-16) mg/dL Creatinine 1.04 (0.5-1.4) mg/dL Estim Creat Clear Calc 99.0 Estimated GFR > 60 Random Glucose 187 H (60-115) mg/dL Calcium 9.1 (8.4-10.2) mg/dL Magnesium 2.2 (1.6-2.6) mg/dL Total Bilirubin 0.2 (0.0-1.0) mg/dL Direct Bilirubin 0.2 (0.0-0.5) mg/dL AST 20 (5-37) U/L ALT 18 (0-40) U/L Alkaline Phosphatase 118 H D (39-117) U/L Total Protein 6.6 (6.5-8.0) g/dL Albumin 4.1 (3.5-5.0) g/dL Lipase 15 (8-78) U/L Urine Color YELLOW Urine Appearance CLEAR Urine pH 6.0 (5.0-8.0) Ur Specific [place] >= 1.030 H (1.005-1.025) Urine Protein 2+ H (NEG-TRACE) MG/DL Urine Glucose (UA) NEG (NEG) MG/DL Urine Ketones NEG (NEG) MG/DL Urine Blood NEG (NEG) Urine Nitrite NEG (NEG) Ur Leukocyte Esterase NEG (NEG) Urine RBC 0-2 (0) /HPF Urine WBC 0-2 (0-4) /HPF Ur Squamous Epith Cells TRACE /LPF Urine Bacteria TRACE /LPF Hyaline Casts 0-2 /LPF Urine Opiates Screen POSITIVE H (Not Detect) Urine Fentanyl Screen POSITIVE H (Not Detect) Ur Barbiturates Screen Not Detected (Not Detect) Ur Phencyclidine Scrn Not Detected (Not Detect) Ur Amphetamines Screen Not Detected (Not Detect) U Benzodiazepines Scrn Not Detected (Not Detect) Urine Cocaine Screen Not Detected (Not Detect) U Marijuana (THC) Screen Not Detected (Not Detect) COVID-19 (ANT) (Negative) COVID-19 Clin Com ECG Data Attestation: I personally reviewed and interpreted this ECG as follows: ECG interpretation date: 03/08/22 ECG interpretation time: 10:11 Interpretation: Rate: 63 Rhythm: NSR [place]: normal Normal P waves. Normal ANNA. Normal QRS complex. ST T wave : normal no GIL qTC: normal prior studies: no acute ischemia The study has been interpreted contemporaneously by me. . Discharge Plan Discharge Clinical Impression: Headache Qualifiers: Headache type: unspecified Headache chronicity pattern: acute headache Intractability: not intractable Qualified Code(s): R51.9 - Headache, unspecified Abdominal pain Qualifiers: Abdominal location: left upper quadrant Qualified Code(s): R10.12 - Left upper quadrant pain Patient Disposition: Home, Self-Care Instructions: Abdominal Pain (ED), General Headache (ED) Additional Instructions: return to ED for any worsening symptoms or concerns KIDNEYS AND URETERS: Punctate nonobstructing intrarenal calculi/calcifications are seen bilaterally. An exophytic cyst off of the lower pole the left kidney measures 1.3 cm (image 72, series 18). No hydroureteronephrosis. BLADDER: Unremarkable.? GASTROINTESTINAL TRACT: Very small hiatal hernia. The remainder of the stomach is unremarkable. The small bowel and appendix are unremarkable. The colon and rectum are unremarkable. ABDOMINAL WALL: Very small fat-containing umbilical hernia.? LYMPH NODES: No lymphadenopathy. VASCULAR: Unremarkable. PELVIC VISCERA: Moderate prostatomegaly with a volume of approximately 65 mL.? OSSEOUS STRUCTURES: Mild multilevel degenerative disc disease and marginal osteophyte formation.? CT/CT abdomen pelvis wo con IMPRESSION: 1. No acute intra-abdominal/pelvic abnormality. No hydroureteronephrosis. Punctate nonobstructing intrarenal calculi/calcifications bilaterally. Small left lower pole renal cyst and shows benign features not requiring follow-up. 2. Other incidental findings detailed above.? ? Fleischner guidelines were followed. Prescriptions: No Action furosemide 40 mg tablet 40 mg PO DAILY metformin 500 mg tablet 500 mg PO BID bupropion HCl 150 mg tablet sustained-release 12 hr 150 mg PO BID carvedilol 25 mg tablet 25 mg PO BID nicotine (polacrilex) 2 mg gum 1 ea PO Q2H PRN (Reason: Nicotine Cravings) isosorbide mononitrate 30 mg tablet extended release 24 hr 60 mg PO DAILY clopidogrel 75 mg tablet 75 mg PO DAILY spironolactone 25 mg tablet 25 mg PO BID amlodipine 10 mg tablet 10 mg PO QPM hydralazine 100 mg tablet 100 tab PO TID omeprazole 20 mg capsule,delayed release(DR/EC) 20 mg PO DAILY losartan 100 mg tablet 100 mg PO DAILY fluticasone propionate 50 mcg/actuation spray,suspension 2 spray intranasal DAILY rosuvastatin 40 mg tablet 40 mg PO BEDTIME cholecalciferol (vitamin D3) 25 mcg (1,000 unit) tablet 1,000 unit PO DAILY calcium carbonate-vitamin D3 [Oyster Shell Calcium-Vit D3] 500 mg(1,250mg) - 400 unit tablet 1 tab PO BID buprenorphine-naloxone [Suboxone] 8-2 mg film 2 strip sublingual DAILY tramadol 50 mg tablet 50 mg PO Q8H PRN (Reason: severe pain (scale score 7-10)) Qty: 20 0RF albuterol sulfate 0.63 mg/3 mL solution for nebulization 0.63 mg inhalation Q4-6H PRN melatonin 10 mg capsule 10 mg PO BEDTIME PRN nitroglycerin 0.4 mg tablet, sublingual 0.4 mg sublingual Q5M PRN Rx Instructions: do not exceed 3 doses per episode trazodone 100 mg tablet 100 mg PO BEDTIME PRN ondansetron HCl 4 mg tablet 4 mg PO Q8H diclofenac sodium 1 % gel 2 g topical QID Rx Instructions: apply to single elbow, wrist or hand; for hand includes palm/fingers/back of hand Senna Plus 8.6-50 mg capsule 1 tab-cap PO BID PRN albuterol sulfate [ProAir HFA] 90 mcg/actuation HFA aerosol inhaler 2 puff inhalation Q4H PRN (Reason: Wheezing) 30 Days Qty: 8.5 11RF nicotine 14 mg/24 hr patch 24 hour 1 patch transdermal DAILY 28 Days Qty: 28 3RF Trelegy Ellipta 200-62.5-25 mcg blister with device 1 inh inhalation DAILY 30 Days Qty: 60 12RF furosemide [Lasix] 20 mg tablet 20 mg PO DAILY Qty: 3 0RF Referrals: Sasha Tipton MD [Primary Care Provider] - 2 days Print Language: Monegasque
--- NOTE | 2022-03-08 08:37 | ECG_ITS ---
Test Reason : abdominal pain Blood Pressure : / mmHG Vent. Rate : 063 BPM Atrial Rate : 063 BPM P-R Int : 142 ms QRS Dur : 098 ms QT Int : 418 ms P-R-T Axes : 054 042 079 degrees QTc Int : 427 ms Normal sinus rhythm Nonspecific T wave abnormality Abnormal ECG When compared with ECG of 22-FEB-2022 15:59, No significant change was found Referred By: Jennifer Pascal Electronically Signed By:Rafael Rosario
--- NOTE | 2022-03-08 09:51 | PC.NURSE ---
RNs x2 attempted to gain IV access and draw blood on this pt. Pt. told RNs multiple times that he is afraid of needles and would not let us try to gain access anywhere other than his hands. Could not gain access via hands. With the help of an flight test shop mechanic, explained to pt. that we needed to look elsewhere on his arms because we couldn't find a good vein on either of his hands. Pt. agreed to this and attempted to gain access and draw blood on his right arm unsuccessfully. Provider Tory Pascal MD aware that we were unable to gain IV access, draw blood or administer IV pain medication to pt. at this time.
[2022-03-08 10:30] LABS: MANUAL DIFF FLAG NO
[2022-03-08 10:35] LABS: Basophils Percent Auto 0.1 % (0-2); Eosinophils Absolute Auto 0.1 X10*3/uL (0.0-0.4); Eosinophils Percent Auto 1.2 % (0-4); Hematocrit 40.6 % (42.0-52.0); Hemoglobin 12.1 g/dl (14.0-18.0); Imm Gran Abs Auto 0.03 X10*3/uL (0.00-0.03); Imm Gran Pct Auto 0.3 % (0.0-0.4); Lymphocytes Percent Auto 11.8 % (20-40); Mean Corpuscular HGB Conc 29.8 g/dl (31.0-36.0); Mean Corpuscular Hemoglobin 23.1 pg (27.0-33.0); Mean Corpuscular Volume 77.5 fL (80.0-98.0); Mean Platelet Volume 10.4 fL (9.4-12.4); Monocytes Absolute Auto 0.5 X10*3/uL (0.1-1.2); Monocytes Percent Auto 5.4 % (2-11); Neutrophils Percent Auto 81.2 % (45-73); Platelet Count 256 X10*3/uL (160-400); Red Blood Count 5.24 X10*6/uL (4.60-5.80); Red Cell Distribution Width 16.8 % (11.0-16.0); White Blood Count 8.7 X10*3/uL (4.8-10.8)
[2022-03-08 10:42] LABS: INTERNATIONAL NORM RATIO 0.9 (0.9-1.1); Prothrombin Time 9.9 SEC (10.0-13.1)
[2022-03-08 10:46] VITALS: BP 214/114; PULSE 64; RESP 18; O2SAT 96
[2022-03-08 10:54] LABS: COVID-19 Test Negative (Negative); IDNOW Serial# 16C4AD1C
--- NOTE | 2022-03-08 10:55 | PC.NURSE ---
Pt denies pain at this time. BP elevated at this time. Denies, visual changes, FIGUEROA, or dizziness.
[2022-03-08 11:00] VITALS: BP 173/87
[2022-03-08 11:04] LABS: Appearance Urine CLEAR; Color Urine YELLOW; Glucose Urine UA NEG (NEG); Leukocyte Esterase Urine NEG (NEG); Nitrite Urine NEG (NEG); Specific Gravity - Urine >= 1.030 (1.005-1.025); UACC Culture Trigger NO; Urine Blood NEG (NEG); Urine Ketones NEG (NEG); Urine Protein 2+ MG/DL (NEG-TRACE)
--- NOTE | 2022-03-08 11:06 | PC.NURSE ---
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 MD aware of elevated BP and po clonidine ordered.
[2022-03-08] MEDS: cloNIDine HCL 0.1 MG TABLET PO (11:08)
[2022-03-08 11:11] LABS: Squamous Epithelial Cell Urine TRACE /LPF
[2022-03-08 11:12] LABS: Bacteria Urine TRACE /LPF; Hyaline Casts Urine 0-2 /LPF; RBC Urine 0-2 /HPF (0); WBC Urine 0-2 /HPF (0-4)
[2022-03-08 11:21] LABS: Amphetamine Screen Urine Not Detected (Not Detect); Barbiturates, Urine Not Detected (Not Detect); Benzodiazepines Screen Urine Not Detected (Not Detect); Cannabinoid Screen Urine Not Detected (Not Detect); Cocaine Screen Urine Not Detected (Not Detect); Fentanyl, urine POSITIVE (Not Detect); Opiate Screen Urine POSITIVE (Not Detect); Phencyclidine Screen Urine Not Detected (Not Detect)
[2022-03-08 11:39] LABS: Alanine Aminotransferase 18 U/L (0-40); Albumin Level 4.1 g/dL (3.5-5.0); Alkaline Phosphatase 118 U/L (39-117); Anion Gap 14 (12-20); Aspartate Amino Transferase 20 U/L (5-37); Bilirubin Direct 0.2 mg/dL (0.0-0.5); Bilirubin Total 0.2 mg/dL (0.0-1.0); Blood Urea Nitrogen 21 mg/dL (9-16); Calcium 9.1 mg/dL (8.4-10.2); Carbon Dioxide 27 mmol/L (22-29); Chloride 105 mmol/L (96-108); Estimated Glomerular Filt Rate > 60; Glucose Random 187 mg/dL (60-115); Lipase 15 U/L (8-78); Magnesium 2.2 mg/dL (1.6-2.6); Potassium 4.6 mmol/L (3.3-5.1); Sodium 141 mmol/L (135-145); Total Protein 6.6 g/dL (6.5-8.0)
== END 2022-03-08 12:02 | disposition home or self-care (01) ==
PROVIDERS: Emergency Provider Emergency Medicine; PCP Internal Medicine
DX: R51.9 Headache, unspecified (principal); R10.12 Left upper quadrant pain; Z20.822 Contact with and (suspected) exposure to COVID-19; I11.0 Hypertensive heart disease with heart failure; I50.9 Heart failure, unspecified; E11.9 Type 2 diabetes mellitus without complications; E78.5 Hyperlipidemia, unspecified; F11.20 Opioid dependence, uncomplicated; F17.200 Nicotine dependence, unspecified, uncomplicated; Z79.899 Other long term (current) drug therapy
CPT/HCPCS: 70450; 74176; 80048; 80076; 80307; 81001; 81003; 83690; 83735; 85025; 85610; 87635; 93005; 99284

== ENCOUNTER → 2022-03-25 11:23 | Outpatient (BNVA) | payer MEDICAID, SELFPAY | PROVIDERS: PCP Internal Medicine; Visit Provider Physician Assistant | DX: M25.562 Pain in left knee (principal); E11.9 Type 2 diabetes mellitus without complications | CPT/HCPCS: 20610; 99212; J1020 ==

== ENCOUNTER → 2022-04-02 08:25 | Outpatient (BNVA) | payer MEDICAID, SELFPAY | PROVIDERS: PCP Internal Medicine; Visit Provider Nurse Practitioner Family | DX: M77.32 Calcaneal spur, left foot (principal); M79.672 Pain in left foot; G89.29 Other chronic pain; F11.90 Opioid use, unspecified, uncomplicated; S82.832A Other fracture of upper and lower end of left fibula, initial encounter for closed fracture; M17.0 Bilateral primary osteoarthritis of knee; I10 Essential (primary) hypertension | CPT/HCPCS: 99202 ==

== ENCOUNTER 2022-05-17 08:57 | Emergency (ER) | payer MEDICAID, SELFPAY ==
[2022-05-17 09:06] VITALS: BP 174/88; PULSE 68; RESP 19; TEMP 36.6; O2SAT 97; BMI 48.4
== END 2022-05-17 11:23 | disposition left against medical advice (07) ==
LOC: HO.ED 11:23
PROVIDERS: Emergency Provider Emergency Medicine
DX: R51.9 Headache, unspecified (principal)
CPT/HCPCS: 99281

== ENCOUNTER 2022-06-08 09:15 | Inpatient (IN) | payer MEDICAID, SELFPAY ==
[2022-06-08 09:22] VITALS: BP 204/103; PULSE 93; RESP 20; TEMP 36.4; O2SAT 97; BMI 54.7
--- NOTE | 2022-06-08 09:36 | ECG_ITS ---
Test Reason : R LEG EDEMA Blood Pressure : / mmHG Vent. Rate : 075 BPM Atrial Rate : 075 BPM P-R Int : 136 ms QRS Dur : 094 ms QT Int : 394 ms P-R-T Axes : 035 022 084 degrees QTc Int : 439 ms Normal sinus rhythm with sinus arrhythmia Nonspecific ST and T wave abnormality Abnormal ECG When compared with ECG of 08-MAR-2022 10:02, No significant change was found Referred By: Generic ED Physician Electronically Signed By:
--- NOTE | 2022-06-08 10:00 | ED.EXTPRO ---
HPI - Extremity Problem General Chief complaint: Extremity Problem Stated complaint: leg leaking fluid Time Seen by Provider: 06/08/22 10:00 Source: patient, old records reviewed and translator/interpreter Mode of arrival: ambulatory Limitations: no limitations History of Present Illness HPI Narrative: 61 yo male with history of morbid obesity, ABDOULAYE on CPAP, DM2, HTN, HFpEF, asthma/COPD, HLD, hx diverticulitis w/ strep bacteremia in 2020, opioid dependence who presents to the ER from home with complaints of right lower extremity weeping clear fluid since yesterday. He reports somehow he sustained 3 small cuts on his right lower leg and has been leaking since. He reports his RLE is always more swollen than his LLE. He is on lasix and spironolactone and has been compliant. He denies any injury. Denies excessive salt intake. He reports a 50 lb weight gain from 280 to 330lbs in the last year. Increase by several pounds in the last few weeks as well. He also endorses worsening SOB and ROSALES for the last 2 months. He also has a productive cough of yellow phelgm for the last 3 weeks and wheezing. He denies any chest pain. He is compliant with his inhalers and CPAP at night. No fever or chills. MD Complaint: extremity swelling Onset (ago): day(s) Pain Consistency: constant Location: left and right (great than left) Severity scale (1-10): 5 Quality: aching Radiation: proximal Relieving factors: other (elevation) Exacerbating factors: weight bearing, exertion and palpation Associated symptoms: shortness of breath Related Data Home Medications Medication Instructions Recorded Confirmed amlodipine 10 mg tablet 10 mg PO QPM 02/12/21 10/15/21 bupropion HCl 150 mg tablet,12 hr 150 mg PO BID 02/12/21 10/15/21 sustained-release calcium carbonate 500 mg-vitamin 1 tab PO BID 02/12/21 10/15/21 D3 10 mcg (400 unit) tablet (Oyster Shell Calcium-Vitamin D3) carvedilol 25 mg tablet 25 mg PO BID 02/12/21 10/15/21 cholecalciferol (vitamin D3) 25 1,000 unit PO DAILY 02/12/21 10/15/21 mcg (1,000 unit) tablet clopidogrel 75 mg tablet 75 mg PO DAILY 02/12/21 10/15/21 fluticasone propionate 50 2 spray intranasal DAILY 02/12/21 10/15/21 mcg/actuation nasal spray,suspension furosemide 40 mg tablet 40 mg PO DAILY 02/12/21 10/15/21 hydralazine 100 mg tablet 100 tab PO TID 02/12/21 10/15/21 isosorbide mononitrate 30 mg 60 mg PO DAILY 02/12/21 10/15/21 tablet,extended release 24 hr losartan 100 mg tablet 100 mg PO DAILY 02/12/21 10/15/21 metformin 500 mg tablet 500 mg PO BID 02/12/21 10/15/21 nicotine (polacrilex) 2 mg gum 1 ea PO Q2H PRN Nicotine Cravings 02/12/21 10/15/21 omeprazole 20 mg capsule,delayed 20 mg PO DAILY 02/12/21 10/15/21 release rosuvastatin 40 mg tablet 40 mg PO BEDTIME 02/12/21 10/15/21 spironolactone 25 mg tablet 25 mg PO BID 02/12/21 10/15/21 albuterol sulfate 0.63 mg/3 mL 0.63 mg inhalation Q4-6H PRN 10/16/21 solution for nebulization diclofenac sodium 1 % topical gel 2 g topical QID 10/16/21 melatonin 10 mg capsule 10 mg PO BEDTIME PRN 10/16/21 nitroglycerin 0.4 mg sublingual 0.4 mg sublingual Q5M PRN 10/16/21 tablet ondansetron HCl 4 mg tablet 4 mg PO Q8H 10/16/21 sennosides 8.6 mg-docusate sodium 1 tab-cap PO BID PRN 10/16/21 50 mg capsule (Senna Plus) trazodone 100 mg tablet 100 mg PO BEDTIME PRN 10/16/21 methadone 10 mg/5 mL oral solution 35 mg PO DAILY 04/02/22 Previous Rx's Medication Instructions Recorded tramadol 50 mg tablet 50 mg PO Q8H PRN severe pain 09/20/21 (scale score 7-10) #20 tabs albuterol sulfate 90 mcg/actuation 2 puff inhalation Q4H PRN Wheezing 10/16/21 aerosol inhaler (ProAir HFA) 30 days #8.5 grams nicotine 14 mg/24 hr daily 1 patch transdermal DAILY 28 days 10/16/21 transdermal patch #28 ea fluticasone fur. 200 mcg-umeclid 1 inh inhalation DAILY 30 days #60 02/28/22 62.5 mcg-vilant 25 mcg ea inhalat.powder (Trelegy Ellipta) furosemide 20 mg tablet (Lasix) 20 mg PO DAILY #3 tabs 02/28/22 Allergies Allergy/AdvReac Type Severity Reaction Status Date / Time crab [CRAB] Allergy Unknown ANAPHYLAXIS Verified 04/02/22 08:41 lisinopril [LISINOPRIL] Allergy Unknown cough Verified 04/02/22 08:41 Penicillins [PCN] Allergy Unknown RASH Verified 04/02/22 08:41 Sulfa (Sulfonamide Allergy Unknown RASH Verified 04/02/22 08:41 Antibiotics) [SULFA (SULFONAMIDE ANTIBIOTICS)] Review of Systems Review of Systems: Constitutional: No Fever, No Chills ENT/Mouth: No sore throat, No Rhinorrhea, No Swallowing Difficulty Eyes: No Eye Pain, No Swelling, No Redness Cardiovascular: No Chest Pain, +SOB, + Orthopnea, + Edema Respiratory: + Cough, + Sputum, + Wheezing, + dyspnea Gastrointestinal: No Nausea, No Vomiting, No Diarrhea, No abdominal Pain, No Hematochezia, No Melena Genitourinary: No Dysuria, No Urinary Frequency, No Hematuria Musculoskeletal: No joint pain, No Myalgias Skin: + Skin Lesions, No rash Neuro: No Weakness, No Numbness, No Dizziness, No Headache Psych: No Anxiety/Panic, No Depression Heme/Lymph: No Bruising, No Lymphadenopathy Endocrine: No Polyuria, No Polydipsia [facility] Past Medical History Medical History (Updated 06/08/22 @ 11:59 by MÓNICA Marquis) Asthma Asthma Chronic allergic rhinitis Chronic restrictive lung disease Congestive heart failure COPD (chronic obstructive pulmonary disease) Coronary artery disease Diabetes Hyperlipidemia Hypertension Normocytic anemia Obesity Obstructive sleep apnea Opioid abuse Pulmonary nodule Streptococcal bacteremia Surgical History H/O hernia repair Hx of colonoscopy Family History Family History Father No problems noted. Mother No problems noted. Social History Social History Household Members: None Housing: House Do you presently have visiting nurse or other home services: No Alcohol intake: never Patient Tobacco Use Status: Current everyday Tobacco user Advance Directives: No Advance Directives Information Provided: Yes service: No Current occupational status: disabled Current occupation: [employer]t handed Physical Exam Vital Signs: Vital Signs: Last Vital Signs Temp 97.5 F 06/08/22 09:22 Pulse 62 06/08/22 11:48 Resp 18 06/08/22 11:48 BP 203/102 H 06/08/22 11:02 Pulse Ox 96 06/08/22 11:02 O2 Del Method 06/08/22 11:02 BMI result Body Mass Index 54.7 Appearance: Alert. Oriented X3. No acute distress. Eyes: Pupils equal, round and reactive to light. ENT: Pharynx normal. Neck: Normal inspection. Neck supple. CVS: Normal heart rate and rhythm. Pulses normal. Respiratory: No respiratory distress. Breath sounds with bibasilar wheezes in the L>R lower lung jones Abdomen: morbidly obese, Soft and nontender. +BS x4 Skin: Skin warm and dry. Normal skin color. Normal skin turgor. No rashes. Extremities: RLE with 3 small superficial skin tears on the anterior lower leg with weeping clear fluid, RLE with 3+ pitting edema from foot to the distal lower leg. RLE is notable larger than the LLE> LLE with 2+ pitting edema, tender throughout with no erythema or warmth of either LE. Neuro: Oriented X 3. No motor deficit. No sensory deficit. Course Course Course Narrative: 61 yo male with history of morbid obesity, HFpEF (Grade II diastolic dysfunction on ECHO 02/19), COPD/asthma, HTN, HLD, ABDOULAYE on CPAP presenting with worsening LE edema, L>R with weeping from the left leg. He also reports significant weight gain, ROSALES, and productive cough. Concern for both acute CHF exacerbation/volume overload and anasarca as well as COPD with his productive cough and wheezing. Will get CXR, labs, LE dopplers. Anticipate admission for IV diuresis. Reevaluation(s) Reevaluation #1: BP remains 200/100 despite taking his multiple antihypertensive agents this morning. No chest pain, headache or vision changes. Will give IV labetalol now. IV lasix also ordered for volume overload/anasarca. renal function and K+ ok. CXR reading bibasilar atelectasis vs early infiltrates, reviewed - looks more like CHF with his clinical presentation. However given his recent productive cough and wheezing on exam, will treat for COPD exacerbation as well with IV doxycyline, neb and IV solumedrol. Reevaluation #2: Troponin 59.6 - repeat ordered at 3 hour kirstin. no chest pain. most likely due to poorly controlled HTN. BNP only 121 but in the setting of diastolic dysfunction this can be falsely low. LE dopplers are negative for DVT. BP improved to 186/99 after labetalol. Will plan to admit the patient for further management. Hospitalist TT for admission. Patient updated on plan of care. MDM - Extremity (Nontraumatic) Lab Data Result diagrams: 06/08/22 10:06/08/22 10: Labs: Lab Results 06/08/22 06/08/22 06/08/22 Range/Units 10: 10: 10:01 WBC 8.9 (4.8-10.8) X10*3/uL RBC 4.89 (4.60-5.80) X10*6/uL Hgb 11.1 L (14.0-18.0) g/dl Hct 37.7 L (42.0-52.0) % MCV 77.1 L (80.0-98.0) fL MCH 22.7 L (27.0-33.0) pg MCHC 29.4 L (31.0-36.0) g/dl RDW 17.2 H (11.0-16.0) % Plt Count 240 (160-400) X10*3/uL MPV 10.7 (9.4-12.4) fL Immature Gran % (Auto) 0.3 (0.0-0.4) % Neut % (Auto) 82.6 H (45-73) % Lymph % (Auto) 7.6 L (20-40) % [place] % (Auto) 7.0 (2-11) % Eos % (Auto) 2.3 (0-4) % Baso % (Auto) 0.2 (0-2) % Lymph # (Auto) 0.7 L (1.2-4.9) X10*3/uL [place] # (Auto) 0.6 (0.1-1.2) X10*3/uL Eos # (Auto) 0.2 (0.0-0.4) X10*3/uL Baso # (Auto) 0.0 (0.0-0.2) X10*3/uL Abs Immat Gran (auto) 0.03 (0.00-0.03) X10*3/uL Absolute Neuts (auto) 7.4 (2.0-8.3) x10*3/uL Absolute Nucleated RBC 0.000 (0.0-0.012) X10*3/uL Nucleated RBC % (auto) 0.0 (0.0-0.2) /100WBC VBG pH (7.32-7.43) VBG pCO2 mmHg VBG pO2 mmHg VBG HCO3 (22-26) mmol/L VBG O2 Saturation % VBG Base Excess mmol/L Sodium 141 (135-145) mmol/L Potassium 4.0 (3.3-5.1) mmol/L Chloride 106 (96-108) mmol/L Carbon Dioxide 27 (22-29) mmol/L Anion Gap 12 (12-20) BUN 24 H (9-16) mg/dL Creatinine 1.15 (0.5-1.4) mg/dL Estim Creat Clear Calc 92.8 Estimated GFR > 60 Random Glucose 235 H (60-115) mg/dL Lactic Acid (0.5-2.0) mmol/L Calcium 8.6 (8.4-10.2) mg/dL Troponin I High Sens 59.6 H D (<3.5-35.0) ng/L B-Natriuretic Peptide (<100) pg/mL 06/08/22 06/08/22 06/08/22 Range/Units 10:01 10:01 11:27 WBC (4.8-10.8) X10*3/uL RBC (4.60-5.80) X10*6/uL Hgb (14.0-18.0) g/dl Hct (42.0-52.0) % MCV (80.0-98.0) fL MCH (27.0-33.0) pg MCHC (31.0-36.0) g/dl RDW (11.0-16.0) % Plt Count (160-400) X10*3/uL MPV (9.4-12.4) fL Immature Gran % (Auto) (0.0-0.4) % Neut % (Auto) (45-73) % Lymph % (Auto) (20-40) % [place] % (Auto) (2-11) % Eos % (Auto) (0-4) % Baso % (Auto) (0-2) % Lymph # (Auto) (1.2-4.9) X10*3/uL [place] # (Auto) (0.1-1.2) X10*3/uL Eos # (Auto) (0.0-0.4) X10*3/uL Baso # (Auto) (0.0-0.2) X10*3/uL Abs Immat Gran (auto) (0.00-0.03) X10*3/uL Absolute Neuts (auto) (2.0-8.3) x10*3/uL Absolute Nucleated RBC (0.0-0.012) X10*3/uL Nucleated RBC % (auto) (0.0-0.2) /100WBC VBG pH 7.41 (7.32-7.43) VBG pCO2 48 mmHg VBG pO2 95 mmHg VBG HCO3 31 H (22-26) mmol/L VBG O2 Saturation 99.0 % VBG Base Excess 5.6 mmol/L Sodium (135-145) mmol/L Potassium (3.3-5.1) mmol/L Chloride (96-108) mmol/L Carbon Dioxide (22-29) mmol/L Anion Gap (12-20) BUN (9-16) mg/dL Creatinine (0.5-1.4) mg/dL Estim Creat Clear Calc Estimated GFR Random Glucose (60-115) mg/dL Lactic Acid 0.9 (0.5-2.0) mmol/L Calcium (8.4-10.2) mg/dL Troponin I High Sens (<3.5-35.0) ng/L B-Natriuretic Peptide 121 H (<100) pg/mL ECG Data Attestation EKG: I personally reviewed and interpreted this ECG as follows: ECG interpretation date: 06/08/22 ECG interpretation time: 11:16 Prior ECG tracings: available for review Interpretation: normal sinus rhythm, HR 75 bpm, [place] interval, artifact in V4-V5, no ST segment elevations or depressions Critical Care Time Critical Care Time Critical Care Time: Yes Total Critical Care Time: 42 Attestation: I have personally provided critical care time exclusive of time spent on separately billable procedures. Time includes review of lab data, radiology results, discussion with consultants, and monitoring for potential decompensation. Intervention performed as documented. Discharge Plan Discharge Clinical Impression: Lower extremity edema, Acute exacerbation of congestive heart failure, Hypertensive urgency, COPD exacerbation Patient Disposition: Admitted As Inpatient
[2022-06-08 10:09] LABS: Basophils Percent Auto 0.2 % (0-2); Eosinophils Absolute Auto 0.2 X10*3/uL (0.0-0.4); Eosinophils Percent Auto 2.3 % (0-4); Hematocrit 37.7 % (42.0-52.0); Hemoglobin 11.1 g/dl (14.0-18.0); Imm Gran Abs Auto 0.03 X10*3/uL (0.00-0.03); Imm Gran Pct Auto 0.3 % (0.0-0.4); Lymphocytes Absolute Auto 0.7 X10*3/uL (1.2-4.9); Lymphocytes Percent Auto 7.6 % (20-40); MANUAL DIFF FLAG NO; Mean Corpuscular HGB Conc 29.4 g/dl (31.0-36.0); Mean Corpuscular Hemoglobin 22.7 pg (27.0-33.0); Mean Corpuscular Volume 77.1 fL (80.0-98.0); Mean Platelet Volume 10.7 fL (9.4-12.4); Monocytes Absolute Auto 0.6 X10*3/uL (0.1-1.2); Neutrophils Absolute Auto 7.4 x10*3/uL (2.0-8.3); Neutrophils Percent Auto 82.6 % (45-73); Platelet Count 240 X10*3/uL (160-400); Red Blood Count 4.89 X10*6/uL (4.60-5.80); Red Cell Distribution Width 17.2 % (11.0-16.0); White Blood Count 8.9 X10*3/uL (4.8-10.8)
[2022-06-08 10:29] LABS: Lactic Acid 0.9 mmol/L (0.5-2.0)
[2022-06-08 10:32] LABS: B Type Natriuretic Peptide 121 pg/mL (<100); Troponin-I High Sensitivity 59.6 ng/L (<3.5-35.0)
[2022-06-08 10:38] LABS: Anion Gap 12 (12-20); Blood Urea Nitrogen 24 mg/dL (9-16); Calcium 8.6 mg/dL (8.4-10.2); Carbon Dioxide 27 mmol/L (22-29); Chloride 106 mmol/L (96-108); Creatinine Clr Calc Pharmacy 92.8; Estimated Glomerular Filt Rate > 60; Glucose Random 235 mg/dL (60-115); Sodium 141 mmol/L (135-145)
[2022-06-08 11:02] VITALS: BP 203/102; PULSE 76; RESP 20; O2SAT 96
[2022-06-08] MEDS: Furosemide 40 MG/4 ML VIAL 60 MG IVPUSH (11:32)
[2022-06-08] MEDS: methylPREDNISolone Sod Succ 40 MG/ML VIAL IVPUSH (11:33)
[2022-06-08] MEDS: Labetalol HCL 100 MG/20 ML VIAL 20 MG IVPUSH (11:33)
[2022-06-08] MEDS: Doxycycline Hyclate 100 MG in 0.9 % Sodium Chloride 250 ML 166.67 MG IV (11:33)
[2022-06-08] MEDS: Albuterol Sulfate 2.5 MG, Albuterol Sulfate (0.083%) 2.5 MG 5 MG INHALE (11:45)
[2022-06-08 11:48] VITALS: PULSE 62; RESP 18; O2SAT 98
[2022-06-08 11:56] VITALS: BP 186/99; PULSE 55; RESP 20; O2SAT 100
[2022-06-08 12:00] LABS: COVID-19 Test Negative (Negative); IDNOW Serial# 55D5AD1C
--- NOTE | 2022-06-08 12:04 | PC.NURSE ---
Pt alert and oriented, respirations even and unlabored. IV established and medicated per the MAR. Pt falling asleep during assessments yet easily arousable to voice.
[2022-06-08 12:08] LABS: Appearance Urine Clear; Color Urine Yellow; Glucose Urine UA 250 mg/dL (Negative); Leukocyte Esterase Urine Negative (Negative); Nitrite Urine Negative (Negative); PH 6.5 (5.0-9.0); UMIC TRIGGER UACC YES; Urine Blood Negative (Negative); Urine Ketones Negative (Negative); Urine Protein 30 (1+) mg/dL (Neg-Trace)
[2022-06-08 12:12] LABS: Bacteria Urine None Seen (None Seen); Hyaline Casts Urine 0-2 /LPF (0-2); RBC Urine 0-2 /HPF (0-2); Squamous Epithelial Cell Urine 0-2 /HPF (0-2); WBC Urine 0-5 /HPF (0-5)
[2022-06-08 12:29] LABS: Barbiturates, Urine Not Detected (Not Detect); Benzodiazepines Screen Urine Not Detected (Not Detect); Cannabinoid Screen Urine Not Detected (Not Detect); Cocaine Screen Urine POSITIVE (Not Detect); Fentanyl, urine POSITIVE (Not Detect); Opiate Screen Urine POSITIVE (Not Detect); Phencyclidine Screen Urine Not Detected (Not Detect)
[2022-06-08 12:35] LABS: Amphetamine Screen Urine Not Detected (Not Detect)
[2022-06-08 13:18] VITALS: BP 179/92; PULSE 64; RESP 20; O2SAT 96
[2022-06-08 14:11] LABS: Troponin-I High Sensitivity 63.4 ng/L (<3.5-35.0)
--- NOTE | 2022-06-08 15:06 | MHC.RECOVRN ---
T/W met w/ pt, pt alert, oriented, walking on the unit. Pt reports runny nose, sweating/chills, anxiety, joint aches, restless legs at night. Pts COWS scale 13. Provider aware.
--- NOTE | 2022-06-08 15:24 | MHC.RECOVRN ---
T/W met w/ pt, pt alert, sitting up in bed, eating. Pt reports went to [facility] this morning for methadone dose 35mg daily. Pt reports gets take home bottles and has one at home for tomorrow. 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 Pt reports had tried Suboxone in the past then bridged to Methadone. T/W discussed RN role, ensuring pt gets dose tomorrow if necessary. Pt verbalized understanding. Pt states I don't want to take it anymore, if I need it, I have my MTD bottle at home .
--- NOTE | 2022-06-08 15:45 | PM.IMHP ---
History of Present Illness Date of Service: 06/08/22 <Mariah Baron NP - Last Filed: 06/08/22 16:15> Attending physician on admission: Grover Roberts <Mariah Baron NP - Last Filed: 06/08/22 16:15> Chief Complaint: leg swelling <Mariah Baron NP - Last Filed: 06/08/22 16:15> 61-year-old man presented to the ER with parent Susan right lower extremity weeping from which he sustained a small cut several days ago. He reports increased right lower extremity swelling. He reports several lb weight gain over the last several weeks. He also reported some shortness breath specially with exertion over the last several months. Does have a history of heart failure with preserved ejection fraction and is on Lasix and spironolactone at home. He denied to me any shortness breath, cough, fever, chills, nausea, vomiting, diarrhea. His concern was with his right lower extremity that was weeping. In the ER he was noted to have a BNP of 121, troponins 59.6 with P of 63.4. Blood pressure elevated over 200 at 1 point. He was given Solu-Medrol, doxycycline, labetalol, albuterol in a dose of Lasix in the ER. He will be placed on observation for mild congestive heart failure. <Mariah Baron NP - Last Filed: 06/08/22 16:15> Review of Systems Review of Systems: Denies any recent fever chills or decrease in appetite respiratory See HPI cardiovascular Denied chest pain gastrointestinal denies any dysphagia abdominal pain nausea vomiting or diarrhea genitourinary denies any dysuria frequency or hematuria musculoskeletal denies any joint pain or swelling neuropsych denies any weakness or seizures all other systems reviewed are negative <Mariah Baron NP - Last Filed: 06/08/22 16:15> [facility] Medical History: Medical History (Updated 06/08/22 @ 15:56 by Mariah Baron NP) Asthma Chronic allergic rhinitis Chronic restrictive lung disease Congestive heart failure COPD (chronic obstructive pulmonary disease) Coronary artery disease Diabetes Hyperlipidemia Hypertension Normocytic anemia Obesity Obstructive sleep apnea Opioid abuse Pulmonary nodule Streptococcal bacteremia <Mariah Baron NP - Last Filed: 06/08/22 16:15> Family History: Family History Father No problems noted. Mother No problems noted. <Mariah Baron NP - Last Filed: 06/08/22 16:15> Surgical History: Surgical History H/O hernia repair Hx of colonoscopy <Mariah Baron NP - Last Filed: 06/08/22 16:15> Social History: Social History Household Members: None Housing: House Do you presently have visiting nurse or other home services: No Alcohol intake: never Patient Tobacco Use Status: Current everyday Tobacco user service: No Current occupational status: disabled Current occupation: Rt handed <Mariah Baron NP - Last Filed: 06/08/22 16:15> Meds Allergies/Adverse reactions: Allergies Allergy/AdvReac Type Severity Reaction Status Date / Time crab [CRAB] Allergy Unknown ANAPHYLAXIS Verified 04/02/22 08:41 lisinopril [LISINOPRIL] Allergy Unknown cough Verified 04/02/22 08:41 Penicillins [PCN] Allergy Unknown RASH Verified 04/02/22 08:41 Sulfa (Sulfonamide Allergy Unknown RASH Verified 04/02/22 08:41 Antibiotics) [SULFA (SULFONAMIDE ANTIBIOTICS)] <Mariah Baron NP - Last Filed: 06/08/22 16:15> Active Medications: Current Medications Acetaminophen (Acetaminophen 325 Mg Tablet) 650 mg PO Q6H PRN PRN Reason: Pain, Mild (Pain Scale 1-3) Albuterol Sulfate (Albuterol Sulfate (0.083%) 2.5 Mg/3 Ml Vial.Neb) 2.5 mg INHALE Q4H PRN PRN Reason: Shortness Of Breath Albuterol Sulfate (Albuterol Sulfate 90 Mcg 8 Gm Inhaler) 2 puff INHALE Q4H PRN PRN Reason: Wheezing Amlodipine Besylate (Amlodipine Besylate 10 Mg Tablet) 10 mg PO BEDTIME [facility]; Protocol Atorvastatin Calcium (Atorvastatin Calcium 80 Mg Tablet) 80 mg PO BEDTIME [facility] Bupropion HCl (Bupropion Hcl Xl 300 Mg Tab.Er.24h) 300 mg PO DAILY [facility] Carvedilol (Carvedilol 25 Mg Tablet) 25 mg PO BID [facility]; Protocol Clonidine HCl (Clonidine Hcl 0.1 Mg Tablet) 0.1 mg PO DAILY [facility]; Protocol Clopidogrel Bisulfate (Clopidogrel Bisulfate 75 Mg Tablet) 75 mg PO DAILY [facility] Dextrose (Dextrose 50 % 25 Gm/50 Ml Syringe) 25 gm IVPUSH Q15M PRN; Protocol PRN Reason: per Hypoglycemia Standing Ord. Enoxaparin Sodium (Enoxaparin Sodium 40 Mg/0.4 Ml Syringe) 40 mg SUBCUT Q24H [facility] Fluticasone Propionate (Fluticasone Propionate Nasal 16 Gm [place]) 2 spray NOSTRIL-B DAILY [facility] Fluticasone/Vilanterol (Fluticasone/Vilanterol 100/25 Blst.W.Dev) 1 puff INHALE RDAILY [facility] Furosemide (Furosemide 40 Mg/4 Ml Vial) 40 mg IVPUSH Q12H [facility]; Protocol Glucose (Glucose Gel 15 Gm Gel..Gram.) 15 gm PO Q15M PRN; Protocol PRN Reason: per Hypoglycemia Standing Ord. Hydralazine HCl (Hydralazine Hcl 50 Mg Tablet) 10,000 mg PO TID [facility]; Protocol Insulin Human Lispro (Insulin Lispro 100 Unit/Ml 3 Ml Vial) 0 unit SUBCUT QIDACHS [facility]; Protocol Isosorbide Mononitrate (Isosorbide Mononitrate 30 Mg Tab.Er.24h) 90 mg PO DAILY [facility]; Protocol Losartan Potassium (Losartan Potassium 50 Mg Tablet) 100 mg PO DAILY [facility]; Protocol Nitroglycerin (Nitroglycerin 0.4 Mg Tab.Subl) 0.4 mg SUBLINGUAL Q5M PRN PRN Reason: Chest Pain Omeprazole (Omeprazole 20 Mg Capsule.Dr) 20 mg PO DAILY@0630 [facility] Ondansetron HCl (Ondansetron Hcl 4 Mg/2 Ml Vial) 4 mg IVPUSH Q8H PRN PRN Reason: Nausea and Vomiting Pharmacy Consult (Consult Rx Perform Med Rec) 1 each MISCELLANE ONCE PRN PRN Reason: Consult order Sodium Chloride (0.9 % Sodium Chloride Flush 3 Ml Syringe) 3 ml IVFLUSH QSHIFT [facility] Spironolactone (Spironolactone 25 Mg Tablet) 25 mg PO BID@0900,1700 [facility]; Protocol Tiotropium Evening Shade (Tiotropium Evening Shade 18 Mcg Cap.W.Dev) 1 puff INHALE RDAILY [facility] Trazodone HCl (Trazodone Hcl 100 Mg Tablet) 100 mg PO BEDTIME PRN PRN Reason: Sleep Verapamil HCl (Verapamil Hcl Sr 240 Mg Tablet.Er) 240 mg PO BEDTIME [facility]; Protocol Vitamin D (Cholecalciferol (Vitamin D3) 25 Mcg Tablet) mcg PO DAILY [facility] <Mariah Baron NP - Last Filed: 06/08/22 16:15> Home medications: Home Medications Medication Instructions Recorded Confirmed Last Taken Type amlodipine 10 mg tablet 10 mg PO BEDTIME 02/12/21 06/08/22 Unknown History bupropion HCl 150 mg tablet,12 hr 150 mg PO BID 02/12/21 06/08/22 Unknown History sustained-release calcium carbonate 500 mg-vitamin 1 tab PO BID 02/12/21 06/08/22 Unknown History D3 10 mcg (400 unit) tablet (Oyster Shell Calcium-Vitamin D3) carvedilol 25 mg tablet 25 mg PO BID 02/12/21 06/08/22 Unknown History cholecalciferol (vitamin D3) 25 1,000 unit PO DAILY 02/12/21 06/08/22 Unknown History mcg (1,000 unit) tablet clopidogrel 75 mg tablet 75 mg PO DAILY 02/12/21 06/08/22 Unknown History fluticasone propionate 50 2 spray intranasal DAILY 02/12/21 06/08/22 Unknown History mcg/actuation nasal spray,suspension furosemide 40 mg tablet 40 mg PO DAILY 02/12/21 06/08/22 Unknown History hydralazine 100 mg tablet 100 mg PO TID 02/12/21 06/08/22 Unknown History isosorbide mononitrate 30 mg 90 mg PO DAILY 02/12/21 06/08/22 Unknown History tablet,extended release 24 hr losartan 100 mg tablet 150 mg PO DAILY 02/12/21 06/08/22 Unknown History metformin 500 mg tablet 500 mg PO BIDWM 02/12/21 06/08/22 Unknown History omeprazole 20 mg capsule,delayed 20 mg PO DAILY@0630 02/12/21 06/08/22 Unknown History release rosuvastatin 40 mg tablet 40 mg PO BEDTIME 02/12/21 06/08/22 Unknown History spironolactone 25 mg tablet 25 mg PO BID@0900,1700 02/12/21 06/08/22 Unknown History melatonin 10 mg capsule 10 mg PO BEDTIME PRN Sleep 10/16/21 06/08/22 Unknown History nitroglycerin 0.4 mg sublingual 0.4 mg sublingual Q5M PRN Chest 10/16/21 06/08/22 Unknown History tablet Pain sennosides 8.6 mg-docusate sodium 1 tab-cap PO BID PRN Constipation 10/16/21 06/08/22 Unknown History 50 mg capsule (Senna Plus) trazodone 100 mg tablet 100 mg PO BEDTIME PRN Sleep 10/16/21 06/08/22 Unknown History methadone 10 mg/5 mL oral solution 35 mg PO DAILY 04/02/22 Unknown History albuterol sulfate 2.5 mg/3 mL 1 amp inhalation Q4-6H PRN 06/08/22 06/08/22 Unknown History (0.083 %) solution for nebulization Shortness Of Breath clonidine HCl 0.1 mg tablet 1 tab PO DAILY 06/08/22 06/08/22 Unknown History empagliflozin 10 mg tablet 10 mg PO DAILY 06/08/22 06/08/22 Unknown History (Jardiance) fluticasone 250 mcg-salmeterol 50 1 puff inhalation BID 06/08/22 06/08/22 Unknown History mcg/dose blistr powdr for inhalation (Advair Diskus) tiotropium bromide 18 mcg capsule 1 cap inhalation DAILY 06/08/22 06/08/22 Unknown History with inhalation device (Spiriva with HandiHaler) verapamil 240 mg tablet,extended 240 mg PO BEDTIME 06/08/22 06/08/22 Unknown History release <Mariah Baron NP - Last Filed: 06/08/22 16:15> Physical Exam Vital Signs and Narrative: Vital Signs: Last Vital Signs Temp 97.5 F 06/08/22 09:22 Pulse 64 06/08/22 13:18 Resp 20 06/08/22 13:18 BP 179/92 H 06/08/22 13:18 Pulse Ox 96 06/08/22 13:18 O2 Del Method 06/08/22 13:18 BMI result Body Mass Index 54.7 <Mariah Baron NP - Last Filed: 06/08/22 16:15> Appearing in no acute distress head is normocephalic atraumatic eyes pupils are PERRLA sclera is anicteric mouth throat mucous membranes are intact and moist neck is supple no lymphadenopathy, no JVD noted lung sounds are clear to auscultation heart regular rate rhythm, clear S1, S2, team edema to bilateral lower extremities right greater than left positive bowel sounds, abdomen is soft, nontender neuro patient is alert x3, no focal deficits Right lower extremity with dime-size shear wound, some areas of weeping likely from edema <Mariah Baron NP - Last Filed: 06/08/22 16:15> Results Labs CBC and Chem 7: : 06/08/22 10:01 06/08/22 10:01 <aMriah Baron [employer] - Last Filed: 06/08/22 16:15> Labs: Laboratory Results - last 24 hr 06/08/22 06/08/22 06/08/22 10:01 10:01 10:01 MCV 77.1 L MCH 22.7 L MCHC 29.4 L RDW 17.2 H Plt Count 240 MPV 10.7 Immature Gran % (Auto) 0.3 Neut % (Auto) 82.6 H Lymph % (Auto) 7.6 L Wright % (Auto) 7.0 Eos % (Auto) 2.3 Baso % (Auto) 0.2 Lymph # (Auto) 0.7 L Wright # (Auto) 0.6 Eos # (Auto) 0.2 Baso # (Auto) 0.0 Abs Immat Gran (auto) 0.03 Absolute Neuts (auto) 7.4 Absolute Nucleated RBC 0.000 Nucleated RBC % (auto) 0.0 VBG pH VBG pCO2 VBG pO2 VBG HCO3 VBG O2 Saturation VBG Base Excess Anion Gap 12 Estim Creat Clear Calc 92.8 Estimated GFR > 60 Random Glucose 235 H Lactic Acid Calcium 8.6 Troponin I High Sens 59.6 H D B-Natriuretic Peptide Urine Color Urine Appearance Urine pH Ur Specific Hoagland Urine Protein Urine Glucose (UA) Urine Ketones Urine Blood Urine Nitrite Ur Leukocyte Esterase Urine RBC Urine WBC Ur Squamous Epith Cells Urine Bacteria Hyaline Casts Urine Opiates Screen Urine Fentanyl Screen Ur Barbiturates Screen Ur Phencyclidine Scrn Ur Amphetamines Screen U Benzodiazepines Scrn Urine Cocaine Screen U Marijuana (THC) Screen COVID-19 (ANT) COVID-19 Clin Com 06/08/22 06/08/22 06/08/22 10:01 10:01 11:27 MCV MCH MCHC RDW Plt Count MPV Immature Gran % (Auto) Neut % (Auto) Lymph % (Auto) Wright % (Auto) Eos % (Auto) Baso % (Auto) Lymph # (Auto) Wright # (Auto) Eos # (Auto) Baso # (Auto) Abs Immat Gran (auto) Absolute Neuts (auto) Absolute Nucleated RBC Nucleated RBC % (auto) VBG pH VBG pCO2 VBG pO2 VBG HCO3 VBG O2 Saturation VBG Base Excess Anion Gap Estim Creat Clear Calc Estimated GFR Random Glucose Lactic Acid 0.9 Calcium Troponin I High Sens B-Natriuretic Peptide 121 H Urine Color Urine Appearance Urine pH Ur Specific [place]agland Urine Protein Urine Glucose (UA) Urine Ketones Urine Blood Urine Nitrite Ur Leukocyte Esterase Urine RBC Urine WBC Ur Squamous Epith Cells Urine Bacteria Hyaline Casts Urine Opiates Screen Urine Fentanyl Screen Ur Barbiturates Screen Ur Phencyclidine Scrn Ur Amphetamines Screen U Benzodiazepines Scrn Urine Cocaine Screen U Marijuana (THC) Screen COVID-19 (ANT) Negative COVID-19 Clin Com See Note 06/08/22 06/08/22 06/08/22 11:27 11:52 11:52 MCV MCH MCHC RDW Plt Count MPV Immature Gran % (Auto) Neut % (Auto) Lymph % (Auto) Wright % (Auto) Eos % (Auto) Baso % (Auto) Lymph # (Auto) Wright # (Auto) Eos # (Auto) Baso # (Auto) Abs Immat Gran (auto) Absolute Neuts (auto) Absolute Nucleated RBC Nucleated RBC % (auto) VBG pH 7.41 VBG pCO2 48 VBG pO2 95 VBG HCO3 31 H VBG O2 Saturation 99.0 VBG Base Excess 5.6 Anion Gap Estim Creat Clear Calc Estimated GFR Random Glucose Lactic Acid Calcium Troponin I High Sens B-Natriuretic Peptide Urine Color Yellow Urine Appearance Clear Urine pH 6.5 Ur Specific [place]agland 1.020 Urine Protein 30 (1+) H Urine Glucose (UA) 250 H Urine Ketones Negative Urine Blood Negative Urine Nitrite Negative Ur Leukocyte Esterase Negative Urine RBC 0-2 Urine WBC 0-5 Ur Squamous Epith Cells 0-2 Urine Bacteria None Seen Hyaline Casts 0-2 Urine Opiates Screen POSITIVE H Urine Fentanyl Screen POSITIVE H Ur Barbiturates Screen Not Detected Ur Phencyclidine Scrn Not Detected Ur Amphetamines Screen Not Detected U Benzodiazepines Scrn Not Detected Urine Cocaine Screen POSITIVE H U Marijuana (THC) Screen Not Detected COVID-19 (ANT) COVID-19 Clin Com 06/08/22 13:35 MCV MCH MCHC RDW Plt Count MPV Immature Gran % (Auto) Neut % (Auto) Lymph % (Auto) Wright % (Auto) Eos % (Auto) Baso % (Auto) Lymph # (Auto) Wright # (Auto) Eos # (Auto) Baso # (Auto) Abs Immat Gran (auto) Absolute Neuts (auto) Absolute Nucleated RBC Nucleated RBC % (auto) VBG pH VBG pCO2 VBG pO2 VBG HCO3 VBG O2 Saturation VBG Base Excess Anion Gap Estim Creat Clear Calc Estimated GFR Random Glucose Lactic Acid Calcium Troponin I High Sens 63.4 H B-Natriuretic Peptide Urine Color Urine Appearance Urine pH Ur Specific [place] Urine Protein Urine Glucose (UA) Urine Ketones Urine Blood Urine Nitrite Ur Leukocyte Esterase Urine RBC Urine WBC Ur Squamous Epith Cells Urine Bacteria Hyaline Casts Urine Opiates Screen Urine Fentanyl Screen Ur Barbiturates Screen Ur Phencyclidine Scrn Ur Amphetamines Screen U Benzodiazepines Scrn Urine Cocaine Screen U Marijuana (THC) Screen COVID-19 (ANT) COVID-19 Clin Com <Mariah Baron NP - Last Filed: 06/08/22 16:15> Imaging Radiologist's Impressions: Impressions Chest X-Ray 06/08/22 10:30 IMPRESSION: Minimal bibasilar atelectasis versus early infiltrates, more prominent when compared to the prior examination. Venous Duplex 06/08/22 10:50 IMPRESSION: No DVT demonstrated in the bilateral lower extremity. <Mariah Baron NP - Last Filed: 06/08/22 16:15> Assessment and Plan (1) Acute exacerbation of congestive heart failure: Status: Acute <Mariah Baron NP - Last Filed: 06/08/22 16:15> 61-year-old man admitted with right lower extremity edema and some shortness of breath with ambulation Heart failure with preserved ejection fraction, mild acute exacerbation IV Lasix 40 mg b.i.d. Last echocardiogram with EF of 50-55% with grade 2 diastolic dysfunction. Cardiology consultation Monitor on telemetry Daily weights Strict intake and output Continue carvedilol, spironolactone weaping RLE, no cellulitis noted, local wound care COPD. No exacerbation Continue albuterol and long-acting inhalers Hypertension. Elevated blood pressure readings. Continue losartan, isosorbide, hydralazine, verapamil, clonidine Monitor blood pressure closely Mental health Continue home medications Substance abuse Verify Methadone dose GERD Continue PPI DVT prophylaxis Lulu Attending Dr. Roberts Full code Observation <Mariah Baron NP - Last Filed: 06/08/22 16:15> 61-year-old man admitted with right lower extremity edema and some shortness of breath with ambulation Heart failure with preserved ejection fraction, mild acute exacerbation IV Lasix 40 mg b.i.d. Last echocardiogram with EF of 50-55% with grade 2 diastolic dysfunction. Cardiology consultation Monitor on telemetry Daily weights Strict intake and output Continue carvedilol, spironolactone weaping RLE, no cellulitis noted, local wound care COPD. No exacerbation Continue albuterol and long-acting inhalers Hypertension. Elevated blood pressure readings. Continue losartan, isosorbide, hydralazine, verapamil, clonidine Monitor blood pressure closely Mental health Continue home medications Substance abuse Verify Methadone dose GERD Continue PPI DVT prophylaxis Lulu Attending Dr. Roberts Full code Observation This patient left the hospital AGAINST MEDICAL ADVICE before I could see them. <Grover Roberts MD - Last Filed: 06/09/22 13:48> Quality Stroke Does the patient have a stroke diagnosis?: No <Mariah Baron NP - Last Filed: 06/08/22 16:15> VTE Prior VTE?: No <Mariah Baron NP - Last Filed: 06/08/22 16:15> VTE Risk Level:: Medical - moderate - high <Mariah Baron NP - Last Filed: 06/08/22 16:15> VTE Device Contraindication: Treatment Not Indicated <Mariah Baron NP - Last Filed: 06/08/22 16:15> VTE Drug Contraindication: N/A - Med Ordered <Mariah Baron NP - Last Filed: 06/08/22 16:15>
[2022-06-08 16:00] VITALS: BP 193/97; PULSE 93; RESP 18; TEMP 36.7; O2SAT 96
--- NOTE | 2022-06-08 16:17 | PC.NURSE ---
Pt walked out of ED despite education on need to stay. Unwilling to await hospitalist. Request IV to be removed and pt left, steady on feet. Mariah COSTELLO aware
--- NOTE | 2022-06-08 16:43 | PM.DS ---
DS: Providers Provider Date of Service: 06/08/22 Date of admission: 06/08/22 15:38 Primary care physician: Nonstaff Physician Consults: 06/08/22 16:01 Consult to Cardiology Routine Consulting Provider: Emil Ovalle Reason for consultation: HF Has provider been notified: No Attending physician on discharge: Grover Roberts Discharging clinician: Mariah Baron DS: Diagnosis Discharge Diagnosis (1) Acute exacerbation of congestive heart failure: Status: Acute DS: Summary Hospital Course Hospital Course: 61-year-old man admitted with mild acute congestive heart failure and right lower extremity edema with weeping. Initially was diagnosed with cellulitis, heart failure, COPD exacerbation in the ER. Found to not have cellulitis or COPD exacerbation in fact. Possibly mild heart failure. However patient decided that he wants to leave against medical advice. As this provider was going to see him he eloped from the ER without any further instructions. Time Spent with Patient Time attestation: Total time spent providing and/or coordinating discharge services: Discharge coordination time: Less than 30 minutes Quality: Safe Use of Opioids Does Pt have an Active Cancer Diagnosis on the Problem List?: No Quality: Stroke Does the patient have a stroke diagnosis?: No Physical Exam Vital Signs: Vital Signs: Last Vital Signs Temp 98.1 F 06/08/22 16:00 Pulse 93 06/08/22 16:00 Resp 18 06/08/22 16:00 BP 193/97 H 06/08/22 16:00 Pulse Ox 96 06/08/22 16:00 O2 Del Method 06/08/22 16:00 BMI result Body Mass Index 54.7 Unable to examine as patient eloped DS: Data Data Completed and Pending Completed studies during hospitalization [Text1]: Procedures Detoxification Services for Substance Abuse Treatment (02/12/21) Insertion of Infusion Device into Right Cephalic Vein, Percutaneous Approach (02/12/21) Labs on day of discharge: Laboratory Results - last 24 hr 06/08/22 06/08/22 06/08/22 10:01 10:01 10:01 WBC 8.9 RBC 4.89 Hgb 11.1 L Hct 37.7 L MCV 77.1 L MCH 22.7 L MCHC 29.4 L RDW 17.2 H Plt Count 240 MPV 10.7 Immature Gran % (Auto) 0.3 Neut % (Auto) 82.6 H Lymph % (Auto) 7.6 L Moca % (Auto) 7.0 Eos % (Auto) 2.3 Baso % (Auto) 0.2 Lymph # (Auto) 0.7 L [place] # (Auto) 0.6 Eos # (Auto) 0.2 Baso # (Auto) 0.0 Abs Immat Gran (auto) 0.03 Absolute Neuts (auto) 7.4 Absolute Nucleated RBC 0.000 Nucleated RBC % (auto) 0.0 VBG pH VBG pCO2 VBG pO2 VBG HCO3 VBG O2 Saturation VBG Base Excess Sodium 141 Potassium 4.0 Chloride 106 Carbon Dioxide 27 Anion Gap 12 BUN 24 H Creatinine 1.15 Estim Creat Clear Calc 92.8 Estimated GFR > 60 Random Glucose 235 H Lactic Acid Calcium 8.6 Troponin I High Sens 59.6 H D B-Natriuretic Peptide Urine Color Urine Appearance Urine pH Ur Specific [place] Urine Protein Urine Glucose (UA) Urine Ketones Urine Blood Urine Nitrite Ur Leukocyte Esterase Urine RBC Urine WBC Ur Squamous Epith Cells Urine Bacteria Hyaline Casts Urine Opiates Screen Urine Fentanyl Screen Ur Barbiturates Screen Ur Phencyclidine Scrn Ur Amphetamines Screen U Benzodiazepines Scrn Urine Cocaine Screen U Marijuana (THC) Screen COVID-19 (ANT) COVID-19 Clin Com 06/08/22 06/08/22 06/08/22 10:01 10:01 11:27 WBC RBC Hgb Hct MCV MCH MCHC RDW Plt Count MPV Immature Gran % (Auto) Neut % (Auto) Lymph % (Auto) Moca % (Auto) Eos % (Auto) Baso % (Auto) Lymph # (Auto) Moca # (Auto) Eos # (Auto) Baso # (Auto) Abs Immat Gran (auto) Absolute Neuts (auto) Absolute Nucleated RBC Nucleated RBC % (auto) VBG pH VBG pCO2 VBG pO2 VBG HCO3 VBG O2 Saturation VBG Base Excess Sodium Potassium Chloride Carbon Dioxide Anion Gap BUN Creatinine Estim Creat Clear Calc Estimated GFR Random Glucose Lactic Acid 0.9 Calcium Troponin I High Sens B-Natriuretic Peptide 121 H Urine Color Urine Appearance Urine pH Ur Specific [place] Urine Protein Urine Glucose (UA) Urine Ketones Urine Blood Urine Nitrite Ur Leukocyte Esterase Urine RBC Urine WBC Ur Squamous Epith Cells Urine Bacteria Hyaline Casts Urine Opiates Screen Urine Fentanyl Screen Ur Barbiturates Screen Ur Phencyclidine Scrn Ur Amphetamines Screen U Benzodiazepines Scrn Urine Cocaine Screen U Marijuana (THC) Screen COVID-19 (ANT) Negative COVID-19 Clin Com See Note 06/08/22 06/08/22 06/08/22 11:27 11:52 11:52 WBC RBC Hgb Hct MCV MCH MCHC RDW Plt Count MPV Immature Gran % (Auto) Neut % (Auto) Lymph % (Auto) Moca % (Auto) Eos % (Auto) Baso % (Auto) Lymph # (Auto) M[place] # (Auto) Eos # (Auto) Baso # (Auto) Abs Immat Gran (auto) Absolute Neuts (auto) Absolute Nucleated RBC Nucleated RBC % (auto) VBG pH 7.41 VBG pCO2 48 VBG pO2 95 VBG HCO3 31 H VBG O2 Saturation 99.0 VBG Base Excess 5.6 Sodium Potassium Chloride Carbon Dioxide Anion Gap BUN Creatinine Estim Creat Clear Calc Estimated GFR Random Glucose Lactic Acid Calcium Troponin I High Sens B-Natriuretic Peptide Urine Color Yellow Urine Appearance Clear Urine pH 6.5 Ur Specific [place] 1.020 Urine Protein 30 (1+) H Urine Glucose (UA) 250 H Urine Ketones Negative Urine Blood Negative Urine Nitrite Negative Ur Leukocyte Esterase Negative Urine RBC 0-2 Urine WBC 0-5 Ur Squamous Epith Cells 0-2 Urine Bacteria None Seen Hyaline Casts 0-2 Urine Opiates Screen POSITIVE H Urine Fentanyl Screen POSITIVE H Ur Barbiturates Screen Not Detected Ur Phencyclidine Scrn Not Detected Ur Amphetamines Screen Not Detected U Benzodiazepines Scrn Not Detected Urine Cocaine Screen POSITIVE H U Marijuana (THC) Screen Not Detected COVID-19 (ANT) COVID-19 Clin Com 06/08/22 13:35 WBC RBC Hgb Hct MCV MCH MCHC RDW Plt Count MPV Immature Gran % (Auto) Neut % (Auto) Lymph % (Auto) Moca % (Auto) Eos % (Auto) Baso % (Auto) Lymph # (Auto) Moca # (Auto) Eos # (Auto) Baso # (Auto) Abs Immat Gran (auto) Absolute Neuts (auto) Absolute Nucleated RBC Nucleated RBC % (auto) VBG pH VBG pCO2 VBG pO2 VBG HCO3 VBG O2 Saturation VBG Base Excess Sodium Potassium Chloride Carbon Dioxide Anion Gap BUN Creatinine Estim Creat Clear Calc Estimated GFR Random Glucose Lactic Acid Calcium Troponin I High Sens 63.4 H B-Natriuretic Peptide Urine Color Urine Appearance Urine pH Ur Specific [place] Urine Protein Urine Glucose (UA) Urine Ketones Urine Blood Urine Nitrite Ur Leukocyte Esterase Urine RBC Urine WBC Ur Squamous Epith Cells Urine Bacteria Hyaline Casts Urine Opiates Screen Urine Fentanyl Screen Ur Barbiturates Screen Ur Phencyclidine Scrn Ur Amphetamines Screen U Benzodiazepines Scrn Urine Cocaine Screen U Marijuana (THC) Screen COVID-19 (ANT) COVID-19 Clin Com Discharge Plan Discharge Anticipated Discharge Date/Time: 06/08/22 16:41 Patient Disposition: Left Against Medical Advice Discharge Diagnosis: CHF Discharge Medications: Continued furosemide 40 mg tablet 40 mg PO DAILY metformin 500 mg tablet 500 mg PO BIDWM bupropion HCl 150 mg tablet sustained-release 12 hr 150 mg PO BID carvedilol 25 mg tablet 25 mg PO BID isosorbide mononitrate 30 mg tablet extended release 24 hr 90 mg PO DAILY clopidogrel 75 mg tablet 75 mg PO DAILY spironolactone 25 mg tablet 25 mg PO BID@0900,1700 amlodipine 10 mg tablet 10 mg PO BEDTIME hydralazine 100 mg tablet 100 mg PO TID omeprazole 20 mg capsule,delayed release(DR/EC) 20 mg PO DAILY@0630 losartan 100 mg tablet 100 mg PO DAILY fluticasone propionate 50 mcg/actuation spray,suspension 2 spray intranasal DAILY rosuvastatin 40 mg tablet 40 mg PO BEDTIME cholecalciferol (vitamin D3) 25 mcg (1,000 unit) tablet 1,000 unit PO DAILY calcium carbonate-vitamin D3 [Oyster Shell Calcium-Vit D3] 500 mg(1,250mg) -400 unit tablet 1 tab PO BID fluticasone propion-salmeterol [Advair Diskus] 250-50 mcg/dose blister with device 1 puff INHALATION BID clonidine HCl 0.1 mg tablet 1 tab PO DAILY albuterol sulfate 2.5 mg /3 mL (0.083 %) solution for nebulization 1 amp inhalation Q4-6H PRN (Reason: Shortness Of Breath) verapamil 240 mg tablet extended release 1 tab PO BEDTIME Spiriva with HandiHaler 18 mcg capsule, w/inhalation device 1 cap inhalation DAILY melatonin 10 mg capsule 10 mg PO BEDTIME PRN (Reason: Sleep) nitroglycerin 0.4 mg tablet, sublingual 0.4 mg sublingual Q5M PRN (Reason: Chest Pain) Rx Instructions: do not exceed 3 doses per episode trazodone 100 mg tablet 100 mg PO BEDTIME PRN (Reason: Sleep) Senna Plus 8.6-50 mg capsule 1 tab-cap PO BID PRN (Reason: Constipation) albuterol sulfate [ProAir HFA] 90 mcg/actuation HFA aerosol inhaler 2 puff inhalation Q4H PRN (Reason: Wheezing) 30 Days Qty: 8.5 11RF methadone 10 mg/5 mL solution 35 mg PO DAILY Discharge Orders: Discharge Order (Routine); Ordered 06/08/22 Ordered By: Mariah Baron Diet: Advance to usual diet Activity on Discharge: As tolerated Care Plan Goals: LEFT AGAINST MEDICAL ADVICE Health Concerns: CHF Right lower extremity edema Plan of Treatment: UNFORTUNATELY, THE PATIENT LEFT AGAINST MEDICAL ADVICE AND IN FACT ELOPED PRIOR TO BEING SEEN BY THIS PROVIDER Assessment: See discharge summary
--- NOTE | 2022-06-08 17:03 | PHA.MEDREC ---
Pharmacy Consult ? Medication Reconciliation Pharmacy has completed the medication reconciliation. pt had med list from [facility], goes to [facility] for his methadone
--- NOTE | 2022-06-09 10:39 | PM.EVENT ---
Event Note Date of Service: 06/09/22 Event Note: Patient left against medical advise prior to being seen by me
== END 2022-06-08 23:30 | disposition left against medical advice (07) | DRG 194 ==
LOC: HO.ED 11:22 → HO.EDOVER 15:56
PROVIDERS: Physician Assistant; Admitting Provider Nurse Practitioner Acute Care; Emergency Provider Emergency Medicine; PCP Internal Medicine; Visit Provider Nurse Practitioner Acute Care
DX: I11.0 Hypertensive heart disease with heart failure (principal); Z68.43 Body mass index [BMI] 50.0-59.9, adult; I50.33 Acute on chronic diastolic (congestive) heart failure; E66.01 Morbid (severe) obesity due to excess calories; E78.5 Hyperlipidemia, unspecified; J44.9 Chronic obstructive pulmonary disease, unspecified; F11.20 Opioid dependence, uncomplicated; K21.9 Gastro-esophageal reflux disease without esophagitis; I16.0 Hypertensive urgency; G47.33 Obstructive sleep apnea (adult) (pediatric); Z20.822 Contact with and (suspected) exposure to COVID-19; Z91.013 Allergy to seafood; Z88.0 Allergy status to penicillin; Z88.2 Allergy status to sulfonamides; Z88.8 Allergy status to other drugs, medicaments and biological substances; Z79.4 Long term (current) use of insulin; Z79.02 Long term (current) use of antithrombotics/antiplatelets; Z79.51 Long term (current) use of inhaled steroids; Z79.52 Long term (current) use of systemic steroids; Z79.84 Long term (current) use of oral hypoglycemic drugs; Z79.899 Other long term (current) drug therapy
CPT/HCPCS: 36415; 71046; 80048; 80307; 81001; 82803; 83605; 83880; 84484; 85025; 87040; 87635; 93005; 93970; 94640; 99285; J1940; J2920

== ENCOUNTER 2022-06-10 09:47 | Inpatient (IN) | payer MEDICAID, SELFPAY ==
--- NOTE | ~2022-06-10 | XR_ITS ---
EXAMINATION: XR CHEST CLINICAL INFORMATION: Shortness of breath COMPARISON: Chest x-ray 06/08/2022 TECHNIQUE: Frontal portable view of the chest was obtained. 1610 hours FINDINGS: Lungs are clear. No pulmonary vascular congestion. There is no pleural effusion. The heart size is normal. The cardiac and mediastinal contours are normal. There are calcifications of the thoracic aorta. There are multilevel degenerative changes of dorsal spine. XR/XR chest 1V IMPRESSION: Unremarkable examination.
[2022-06-10 10:14] VITALS: BP 214/104; PULSE 89; RESP 18; TEMP 36.9; O2SAT 95; BMI 48.4
[2022-06-10 12:20] LABS: MANUAL DIFF FLAG NO
[2022-06-10 12:21] LABS: Basophils Percent Auto 0.2 % (0-2); Eosinophils Absolute Auto 0.2 X10*3/uL (0.0-0.4); Eosinophils Percent Auto 1.5 % (0-4); Hematocrit 40.7 % (42.0-52.0); Imm Gran Abs Auto 0.03 X10*3/uL (0.00-0.03); Imm Gran Pct Auto 0.3 % (0.0-0.4); Lymphocytes Absolute Auto 1.4 X10*3/uL (1.2-4.9); Lymphocytes Percent Auto 13.5 % (20-40); Mean Corpuscular HGB Conc 29.5 g/dl (31.0-36.0); Mean Corpuscular Hemoglobin 22.5 pg (27.0-33.0); Mean Corpuscular Volume 76.4 fL (80.0-98.0); Mean Platelet Volume 10.2 fL (9.4-12.4); Monocytes Absolute Auto 0.6 X10*3/uL (0.1-1.2); Monocytes Percent Auto 6.2 % (2-11); Neutrophils Absolute Auto 7.9 x10*3/uL (2.0-8.3); Neutrophils Percent Auto 78.3 % (45-73); Platelet Count 273 X10*3/uL (160-400); Red Blood Count 5.33 X10*6/uL (4.60-5.80)
[2022-06-10 12:40] LABS: Anion Gap 14 (12-20); Blood Urea Nitrogen 22 mg/dL (9-16); Calcium 8.8 mg/dL (8.4-10.2); Carbon Dioxide 30 mmol/L (22-29); Chloride 101 mmol/L (96-108); Creatinine Clr Calc Pharmacy 85.4; Estimated Glomerular Filt Rate > 60; Glucose Random 267 mg/dL (60-115); Potassium 4.3 mmol/L (3.3-5.1); Sodium 141 mmol/L (135-145)
--- NOTE | 2022-06-10 14:01 | ECG_ITS ---
Test Reason : HYPERTENSION Blood Pressure : / mmHG Vent. Rate : 088 BPM Atrial Rate : 088 BPM P-R Int : 126 ms QRS Dur : 150 ms QT Int : 432 ms P-R-T Axes : 048 087 031 degrees QTc Int : 522 ms Normal sinus rhythm Right bundle branch block Abnormal ECG When compared with ECG of 08-JUN-2022 09:52, Right bundle branch block is now Present Referred By: Angeli Armendariz Electronically Signed By:DENIZ HOOPER MD
[2022-06-10 14:11] VITALS: BP 181/98; PULSE 86; RESP 14; O2SAT 95
--- NOTE | 2022-06-10 14:37 | ED.GENADULT ---
HPI - General Adult General Chief complaint: General Medical Stated complaint: r leg pain blisters Time Seen by Provider: 06/10/22 14:01 Source: patient Mode of arrival: ambulatory History of Present Illness HPI narrative: 61-year-old male who presents with history of morbid obesity, ABDOULAYE on CPAP, DM2, HTN, HFpEF, asthma/COPD, HLD and presents with complaints of shortness of breath, lower extremity swelling and that his right lower extremity is edematous and leaking water . Patient states he got tired waiting for his bed upstairs and walked out. Related Data Home Medications Medication Instructions Recorded Confirmed amlodipine 10 mg tablet 10 mg PO BEDTIME 02/12/21 06/08/22 bupropion HCl 150 mg tablet,12 hr 150 mg PO BID 02/12/21 06/08/22 sustained-release calcium carbonate 500 mg-vitamin 1 tab PO BID 02/12/21 06/08/22 D3 10 mcg (400 unit) tablet (Oyster Shell Calcium-Vitamin D3) carvedilol 25 mg tablet 25 mg PO BID 02/12/21 06/08/22 cholecalciferol (vitamin D3) 25 1,000 unit PO DAILY 02/12/21 06/08/22 mcg (1,000 unit) tablet clopidogrel 75 mg tablet 75 mg PO DAILY 02/12/21 06/08/22 fluticasone propionate 50 2 spray intranasal DAILY 02/12/21 06/08/22 mcg/actuation nasal spray,suspension furosemide 40 mg tablet 40 mg PO DAILY 02/12/21 06/08/22 hydralazine 100 mg tablet 100 mg PO TID 02/12/21 06/08/22 isosorbide mononitrate 30 mg 90 mg PO DAILY 02/12/21 06/08/22 tablet,extended release 24 hr losartan 100 mg tablet 150 mg PO DAILY 02/12/21 06/08/22 metformin 500 mg tablet 500 mg PO BIDWM 02/12/21 06/08/22 omeprazole 20 mg capsule,delayed 20 mg PO DAILY@0630 02/12/21 06/08/22 release rosuvastatin 40 mg tablet 40 mg PO BEDTIME 02/12/21 06/08/22 spironolactone 25 mg tablet 25 mg PO BID@0900,1700 02/12/21 06/08/22 melatonin 10 mg capsule 10 mg PO BEDTIME PRN Sleep 10/16/21 06/08/22 nitroglycerin 0.4 mg sublingual 0.4 mg sublingual Q5M PRN Chest 10/16/21 06/08/22 tablet Pain sennosides 8.6 mg-docusate sodium 1 tab-cap PO BID PRN Constipation 10/16/21 06/08/22 50 mg capsule (Senna Plus) trazodone 100 mg tablet 100 mg PO BEDTIME PRN Sleep 10/16/21 06/08/22 methadone 10 mg/5 mL oral solution 35 mg PO DAILY 04/02/22 albuterol sulfate 2.5 mg/3 mL 1 amp inhalation Q4-6H PRN 06/08/22 06/08/22 (0.083 %) solution for nebulization Shortness Of Breath clonidine HCl 0.1 mg tablet 1 tab PO DAILY 06/08/22 06/08/22 empagliflozin 10 mg tablet 10 mg PO DAILY 06/08/22 06/08/22 (Jardiance) fluticasone 250 mcg-salmeterol 50 1 puff inhalation BID 06/08/22 06/08/22 mcg/dose blistr powdr for inhalation (Advair Diskus) tiotropium bromide 18 mcg capsule 1 cap inhalation DAILY 06/08/22 06/08/22 with inhalation device (Spiriva with HandiHaler) verapamil 240 mg tablet,extended 240 mg PO BEDTIME 06/08/22 06/08/22 release Previous Rx's Medication Instructions Recorded albuterol sulfate 90 mcg/actuation 2 puff inhalation Q4H PRN Wheezing 10/16/21 aerosol inhaler (ProAir HFA) 30 days #8.5 grams Allergies Allergy/AdvReac Type Severity Reaction Status Date / Time crab [CRAB] Allergy Unknown ANAPHYLAXIS Verified 04/02/22 08:41 lisinopril [LISINOPRIL] Allergy Unknown cough Verified 04/02/22 08:41 Penicillins [PCN] Allergy Unknown RASH Verified 04/02/22 08:41 Sulfa (Sulfonamide Allergy Unknown RASH Verified 04/02/22 08:41 Antibiotics) [SULFA (SULFONAMIDE ANTIBIOTICS)] Review of Systems Review of Systems: Pertinent positives and negatives as stated in HPI 10 point review of systems is otherwise negative. [facility], [facility] Past Medical History Source: nursing notes reviewed Medical History Asthma Chronic allergic rhinitis Chronic restrictive lung disease Congestive heart failure COPD (chronic obstructive pulmonary disease) Coronary artery disease Diabetes Hyperlipidemia Hypertension Normocytic anemia Obesity Obstructive sleep apnea Opioid abuse Pulmonary nodule Streptococcal bacteremia Surgical History H/O hernia repair Hx of colonoscopy Family History Family History Father No problems noted. Mother No problems noted. Social History Social History Household Members: None Housing: House Do you presently have visiting nurse or other home services: No Alcohol intake: never Patient Tobacco Use Status: Current everyday Tobacco user Substance Use Type: Crack/Cocaine Advance Directives: No Advance Directives Information Provided: Yes service: No Current occupational status: disabled Current occupation: [employer] handed Physical Exam ED Vital Signs: Vital Signs - 24 hr 06/10/22 10:14 06/10/22 14:11 Temperature 98.4 F Pulse Rate 89 86 Respiratory Rate 18 14 Blood Pressure 214/104 H 181/98 H Pulse Oximetry 95 95 Oxygen Delivery Method Room Air Room Air BMI result Body Mass Index 48.4 VITAL SIGNS: Reviewed. GENERAL: Well developed, well nourished, in no acute distress. HEAD: Normocephalic/atraumatic EYES: PERRLA, EOMI EARS: Ext canals without abnormality OROPHARYNX: no oral lesions noted, posterior pharynx clear LUNGS: Normal breath sounds. No adventitious sounds or accessory muscle use. SpO2<95> CARDIOVASCULAR: Regular rate and rhythm without noted murmurs, no JVD But bilateral lower extremity edema, 2 to 3+ pitting ABDOMEN: Soft, non-tender, non-distended with bowel sounds. MUSCULOSKELETAL: No tenderness, deformities, or effusions noted on gross inspection. EXTREMITIES: No cyanosis, clubbing or edema; RIGHT LOWER EXTREMITY: There are noted blisters forming on the anterior aspect of extremity, there is no warmth or erythema. SKIN: Inspection of the skin reveals no rashes NEUROLOGIC: Alert and oriented x 4. Strength and sensation to light touch were grossly intact x 4. Course Course Course Narrative: 61-year-old male with multiple comorbidities and history this suggest likely CHF exacerbation that is contributed to his significant lower extremity edema. This does not appear to be a cellulitis at this time. I discussed extensively with this gentleman regarding him staying regardless if he is transferred upstairs immediately or not. He has agreed to stay for full evaluation. On review of all investigations patient has findings most consistent with acute CHF exacerbation and will be given 80 mg of Lasix. I discussed this case with the inpatient hospitalist who accepts admission. Medical Decision Making Lab Data Result diagrams: 06/10/22 12:16 06/10/22 12:16 Labs: Lab Results 06/10/22 06/10/22 06/10/22 Range/Units 12:16 12:16 12:16 WBC 10.0 (4.8-10.8) X10*3/uL RBC 5.33 (4.60-5.80) X10*6/uL Hgb 12.0 L (14.0-18.0) g/dl Hct 40.7 L (42.0-52.0) % MCV 76.4 L (80.0-98.0) fL MCH 22.5 L (27.0-33.0) pg MCHC 29.5 L (31.0-36.0) g/dl RDW 17.0 H (11.0-16.0) % Plt Count 273 (160-400) X10*3/uL MPV 10.2 (9.4-12.4) fL Immature Gran % (Auto) 0.3 (0.0-0.4) % Neut % (Auto) 78.3 H (45-73) % Lymph % (Auto) 13.5 L (20-40) % [place] % (Auto) 6.2 (2-11) % Eos % (Auto) 1.5 (0-4) % Baso % (Auto) 0.2 (0-2) % Lymph # (Auto) 1.4 (1.2-4.9) X10*3/uL [place] # (Auto) 0.6 (0.1-1.2) X10*3/uL Eos # (Auto) 0.2 (0.0-0.4) X10*3/uL Baso # (Auto) 0.0 (0.0-0.2) X10*3/uL Abs Immat Gran (auto) 0.03 (0.00-0.03) X10*3/uL Absolute Neuts (auto) 7.9 (2.0-8.3) x10*3/uL Absolute Nucleated RBC 0.000 (0.0-0.012) X10*3/uL Nucleated RBC % (auto) 0.0 (0.0-0.2) /100WBC VBG pH (7.32-7.43) VBG pCO2 mmHg VBG pO2 mmHg VBG HCO3 (22-26) mmol/L VBG O2 Saturation % VBG Base Excess mmol/L Sodium 141 (135-145) mmol/L Potassium 4.3 (3.3-5.1) mmol/L Chloride 101 (96-108) mmol/L Carbon Dioxide 30 H (22-29) mmol/L Anion Gap 14 (12-20) BUN 22 H (9-16) mg/dL Creatinine 1.16 (0.5-1.4) mg/dL Estim Creat Clear Calc 85.4 Estimated GFR > 60 Random Glucose 267 H (60-115) mg/dL Lactic Acid (0.5-2.0) mmol/L Calcium 8.8 (8.4-10.2) mg/dL Total Bilirubin 0.3 (0.0-1.0) mg/dL Direct Bilirubin 0.2 (0.0-0.5) mg/dL AST 22 (5-37) U/L ALT 24 (0-40) U/L Alkaline Phosphatase 117 (39-117) U/L Troponin I High Sens 66.7 H (<3.5-35.0) ng/L B-Natriuretic Peptide 147 H (<100) pg/mL Total Protein 6.2 L (6.5-8.0) g/dL Albumin 3.8 (3.5-5.0) g/dL COVID-19 (ANT) (Negative) COVID-19 Clin Com 06/10/22 06/10/22 06/10/22 Range/Units 14:35 14:35 14:39 WBC (4.8-10.8) X10*3/uL RBC (4.60-5.80) X10*6/uL Hgb (14.0-18.0) g/dl Hct (42.0-52.0) % MCV (80.0-98.0) fL MCH (27.0-33.0) pg MCHC (31.0-36.0) g/dl RDW (11.0-16.0) % Plt Count (160-400) X10*3/uL MPV (9.4-12.4) fL Immature Gran % (Auto) (0.0-0.4) % Neut % (Auto) (45-73) % Lymph % (Auto) (20-40) % [place] % (Auto) (2-11) % Eos % (Auto) (0-4) % Baso % (Auto) (0-2) % Lymph # (Auto) (1.2-4.9) X10*3/uL [place] # (Auto) (0.1-1.2) X10*3/uL Eos # (Auto) (0.0-0.4) X10*3/uL Baso # (Auto) (0.0-0.2) X10*3/uL Abs Immat Gran (auto) (0.00-0.03) X10*3/uL Absolute Neuts (auto) (2.0-8.3) x10*3/uL Absolute Nucleated RBC (0.0-0.012) X10*3/uL Nucleated RBC % (auto) (0.0-0.2) /100WBC VBG pH 7.32 (7.32-7.43) VBG pCO2 68 mmHg VBG pO2 35 mmHg VBG HCO3 35 H (22-26) mmol/L VBG O2 Saturation 52.0 % VBG Base Excess 7.2 mmol/L Sodium (135-145) mmol/L Potassium (3.3-5.1) mmol/L Chloride (96-108) mmol/L Carbon Dioxide (22-29) mmol/L Anion Gap (12-20) BUN (9-16) mg/dL Creatinine (0.5-1.4) mg/dL Estim Creat Clear Calc Estimated GFR Random Glucose (60-115) mg/dL Lactic Acid 1.8 (0.5-2.0) mmol/L Calcium (8.4-10.2) mg/dL Total Bilirubin (0.0-1.0) mg/dL Direct Bilirubin (0.0-0.5) mg/dL AST (5-37) U/L ALT (0-40) U/L Alkaline Phosphatase (39-117) U/L Troponin I High Sens (<3.5-35.0) ng/L B-Natriuretic Peptide (<100) pg/mL Total Protein (6.5-8.0) g/dL Albumin (3.5-5.0) g/dL COVID-19 (ANT) Negative (Negative) COVID-19 Clin Com See Note ECG Data Attestation: I personally reviewed and interpreted this ECG as follows: Prior ECG tracings: available for review Interpretation: normal sinus rhythm, HR- 88, the right bundle branch block is new Critical Care Time Critical Care Time Critical Care Time: Yes Total Critical Care Time: 30 Attestation: I personally attest to this time spent taking care of the patient. Discharge Plan Discharge Clinical Impression: CHF exacerbation, Smoker, Obstructive sleep apnea, COPD (chronic obstructive pulmonary disease) Patient Disposition: Admitted As Inpatient Prescriptions: No Action furosemide 40 mg tablet 40 mg PO DAILY metformin 500 mg tablet 500 mg PO BIDWM bupropion HCl 150 mg tablet sustained-release 12 hr 150 mg PO BID carvedilol 25 mg tablet 25 mg PO BID isosorbide mononitrate 30 mg tablet extended release 24 hr 90 mg PO DAILY clopidogrel 75 mg tablet 75 mg PO DAILY spironolactone 25 mg tablet 25 mg PO BID@0900,1700 amlodipine 10 mg tablet 10 mg PO BEDTIME hydralazine 100 mg tablet 100 mg PO TID omeprazole 20 mg capsule,delayed release(DR/EC) 20 mg PO DAILY@0630 losartan 100 mg tablet 150 mg PO DAILY fluticasone propionate 50 mcg/actuation spray,suspension 2 spray intranasal DAILY rosuvastatin 40 mg tablet 40 mg PO BEDTIME cholecalciferol (vitamin D3) 25 mcg (1,000 unit) tablet 1,000 unit PO DAILY calcium carbonate-vitamin D3 [Oyster Shell Calcium-Vit D3] 500 mg(1,250mg) -400 unit tablet 1 tab PO BID fluticasone propion-salmeterol [Advair Diskus] 250-50 mcg/dose blister with device 1 puff INHALATION BID clonidine HCl 0.1 mg tablet 1 tab PO DAILY albuterol sulfate 2.5 mg /3 mL (0.083 %) solution for nebulization 1 amp inhalation Q4-6H PRN (Reason: Shortness Of Breath) verapamil 240 mg tablet extended release 240 mg PO BEDTIME Spiriva with HandiHaler 18 mcg capsule, w/inhalation device 1 cap inhalation DAILY Jardiance 10 mg tablet 10 mg PO DAILY melatonin 10 mg capsule 10 mg PO BEDTIME PRN (Reason: Sleep) nitroglycerin 0.4 mg tablet, sublingual 0.4 mg sublingual Q5M PRN (Reason: Chest Pain) Rx Instructions: do not exceed 3 doses per episode trazodone 100 mg tablet 100 mg PO BEDTIME PRN (Reason: Sleep) Senna Plus 8.6-50 mg capsule 1 tab-cap PO BID PRN (Reason: Constipation) albuterol sulfate [ProAir HFA] 90 mcg/actuation HFA aerosol inhaler 2 puff inhalation Q4H PRN (Reason: Wheezing) 30 Days Qty: 8.5 11RF methadone 10 mg/5 mL solution 35 mg PO DAILY
[2022-06-10 14:45] LABS: VBG Base Excess 7.2 mmol/L; VBG HCO3 35 mmol/L (22-26); VBG pCO2 68 mmHg; VBG pH 7.32 (7.32-7.43); VBG pO2 35 mmHg
[2022-06-10 14:45] LABS: Venous Blood Gas Refer to POC result
[2022-06-10 15:01] LABS: Lactic Acid 1.8 mmol/L (0.5-2.0)
[2022-06-10 15:04] LABS: COVID-19 Test Negative (Negative)
[2022-06-10 15:35] LABS: Alanine Aminotransferase 24 U/L (0-40); Albumin Level 3.8 g/dL (3.5-5.0); Alkaline Phosphatase 117 U/L (39-117); Aspartate Amino Transferase 22 U/L (5-37); Bilirubin Direct 0.2 mg/dL (0.0-0.5); Bilirubin Total 0.3 mg/dL (0.0-1.0); Total Protein 6.2 g/dL (6.5-8.0)
[2022-06-10 15:49] LABS: B Type Natriuretic Peptide 147 pg/mL (<100); Troponin-I High Sensitivity 66.7 ng/L (<3.5-35.0)
[2022-06-10] MEDS: Furosemide 100 MG/10 ML VIAL 80 MG IVPUSH (16:13)
[2022-06-10 16:14] VITALS: BP 179/99; PULSE 74; RESP 18; O2SAT 94
[2022-06-10 16:16] LABS: D Dimer High Sensitivity 176 NG/ML
--- NOTE | 2022-06-10 16:16 | PC.NURSE ---
Patient resting comfortably. skin color adequate to ethnicity. audible whizzing on upper lung bilaterally. Lower lung sounds diminished bilaterally. O2Sat 96% at room air. hospitalist came by to take a look at his leg. He has a few fluid filled blisters. I rewrapped his leg with new clean dressing. gave him lasix 8mg IV
--- NOTE | 2022-06-10 17:48 | PM.IMHP ---
History of Present Illness Date of Service: 06/10/22 Attending physician on admission: Juan Mccann Chief Complaint: leg swelling ,sob 61-year-old man multiple comorbidities including CHF and COPD, morbidly obese, heroine user everday : Came to hospital 2 days back and was admitted for CHF and signed out now coming back again- b/llower extremity weeping from which he sustained a small cut several days ago.? He reports increased right lower extremity swelling.? He reports several lb weight gain over the last several weeks.? He also reported some shortness breath specially with exertion over the last several months.? Does have a history of heart failure with preserved ejection fraction and is on Lasix and spironolactone at home.? He denied to me any shortness breath, cough, fever, chills, nausea, vomiting, diarrhea.? His concern was with his right lower extremity that was weeping.? Is feeling somewhat short of breath especially with exertion, denies any chest pain or abdominal pain or nausea vomiting or diarrhea or fever or chills. In the ER he was noted to have a BNP of 121, troponins 59.6 with P of 63.4.? Blood pressure elevated uncontrolled in 200;s but improving.? a dose of Lasix in the ER. ekg -nsr with rbbb Review of Systems Review of Systems: As above. [facility] Medical History Asthma Chronic allergic rhinitis Chronic restrictive lung disease Congestive heart failure COPD (chronic obstructive pulmonary disease) Coronary artery disease Diabetes Hyperlipidemia Hypertension Normocytic anemia Obesity Obstructive sleep apnea Opioid abuse Pulmonary nodule Streptococcal bacteremia Family History Father No problems noted. Mother No problems noted. 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 Meds Allergies Allergy/AdvReac Type Severity Reaction Status Date / Time crab [CRAB] Allergy Unknown ANAPHYLAXIS Verified 04/02/22 08:41 lisinopril [LISINOPRIL] Allergy Unknown cough Verified 04/02/22 08:41 Penicillins [PCN] Allergy Unknown RASH Verified 04/02/22 08:41 Sulfa (Sulfonamide Allergy Unknown RASH Verified 04/02/22 08:41 Antibiotics) [SULFA (SULFONAMIDE ANTIBIOTICS)] Active Medications: Current Medications Albuterol/Ipratropium (Albuterol/Iprat 2.5/0.5mg 3 Ml Ampul.Neb) 3 ml INHALE RQ4H [facility] Amlodipine Besylate (Amlodipine Besylate 10 Mg Tablet) 10 mg PO BEDTIME ELVIE; Protocol Carvedilol (Carvedilol 25 Mg Tablet) 25 mg PO BID ELVIE; Protocol Clonidine HCl (Clonidine Hcl 0.1 Mg Tablet) 0.1 mg PO DAILY ELVIE; Protocol Clopidogrel Bisulfate (Clopidogrel Bisulfate 75 Mg Tablet) 75 mg PO DAILY [facility] Dextrose (Dextrose 50 % 25 Gm/50 Ml Syringe) 25 gm IVPUSH Q15M PRN; Protocol PRN Reason: per Hypoglycemia Standing Ord. Fluticasone Propionate (Fluticasone Propionate Nasal 16 Gm [place]) 2 spray NOSTRIL-B DAILY [facility] Furosemide (Furosemide 40 Mg/4 Ml Vial) 40 mg IVPUSH BID ELVIE; Protocol Glucose (Glucose Gel 15 Gm Gel..Gram.) 15 gm PO Q15M PRN; Protocol PRN Reason: per Hypoglycemia Standing Ord. Heparin Sodium (Porcine) (Heparin Sodium,Porcine 5,000 Unit/Ml Vial) 5,000 unit SUBCUT Q12H [facility] Hydralazine HCl (Hydralazine Hcl 50 Mg Tablet) 100 mg PO TID ELVIE; Protocol Insulin Human Lispro (Insulin Lispro 100 Unit/Ml 3 Ml Vial) 0 unit SUBCUT QIDACHS ELVIE; Protocol Isosorbide Mononitrate (Isosorbide Mononitrate 30 Mg Tab.Er.24h) 90 mg PO DAILY ELVIE; Protocol Losartan Potassium (Losartan Potassium 50 Mg Tablet) 150 mg PO DAILY ELVIE; Protocol Nitroglycerin (Nitroglycerin 0.4 Mg Tab.Subl) 0.4 mg SUBLINGUAL Q5M PRN PRN Reason: Chest Pain Non-Formulary Medication (Bupropion Hcl) 150 mg PO BID [facility] Non-Formulary Medication (Calcium Carbonate-Vitamin D3 [Oyster Shell Calcium-Vit D3]) 1 tab PO BID [facility] Non-Formulary Medication (Fluticasone Propion-Salmeterol [Advair Diskus]) 1 puff INHALE BID [facility] Non-Formulary Medication (Melatonin) 10 mg PO BEDTIME [facility] Non-Formulary Medication (Sennosides-Docusate Sodium [Senna Plus]) 1 tab-cap PO BID PRN PRN Reason: Constipation Non-Formulary Medication (Acetaminophen) 2 tab PO Q8H PRN PRN Reason: Pain (Scale Score 1-3) Non-Formulary Medication (Rosuvastatin) 40 mg PO BEDTIME [facility] Omeprazole (Omeprazole 20 Mg Capsule.Dr) 20 mg PO DAILY@0630 [facility] Pharmacy Consult (Consult Rx Perform Med Rec) 1 each MISCELLANE ONCE PRN PRN Reason: Consult order Prednisone (Prednisone 20 Mg Tablet) 40 mg PO DAILY [facility] Sodium Chloride (0.9 % Sodium Chloride Flush 3 Ml Syringe) 3 ml IVFLUSH QSHIFT [facility] Spironolactone (Spironolactone 25 Mg Tablet) 25 mg PO BID@0900,1700 [facility]; Protocol Tiotropium [place] (Tiotropium [place] 18 Mcg Cap.W.Dev) puff INHALE DAILY [facility] Trazodone HCl (Trazodone Hcl 100 Mg Tablet) 100 mg PO BEDTIME [facility] Verapamil HCl (Verapamil Hcl Sr 240 Mg Tablet.Er) 240 mg PO BEDTIME [facility]; Protocol Vitamin D (Cholecalciferol (Vitamin D3) 25 Mcg Tablet) mcg PO DAILY [facility] Home Medications Medication Instructions Recorded Confirmed Last Taken Type amlodipine 10 mg tablet 10 mg PO BEDTIME 02/12/21 06/10/22 06/09/22 History bupropion HCl 150 mg tablet,12 hr 150 mg PO BID 02/12/21 06/10/22 06/10/22 History sustained-release calcium carbonate 500 mg-vitamin 1 tab PO BID 02/12/21 06/10/22 06/10/22 History D3 10 mcg (400 unit) tablet (Oyster Shell Calcium-Vitamin D3) carvedilol 25 mg tablet 25 mg PO BID 02/12/21 06/10/22 06/10/22 History cholecalciferol (vitamin D3) 25 1,000 unit PO DAILY 02/12/21 06/10/22 06/10/22 History mcg (1,000 unit) tablet clopidogrel 75 mg tablet 75 mg PO DAILY 02/12/21 06/10/22 06/10/22 History fluticasone propionate 50 2 spray intranasal DAILY 02/12/21 06/10/22 06/10/22 History mcg/actuation nasal spray,suspension furosemide 40 mg tablet 40 mg PO DAILY 02/12/21 06/10/22 06/10/22 History hydralazine 100 mg tablet 100 mg PO TID 02/12/21 06/10/22 06/10/22 History isosorbide mononitrate 30 mg 90 mg PO DAILY 02/12/21 06/10/22 06/10/22 History tablet,extended release 24 hr losartan 100 mg tablet 150 mg PO DAILY 02/12/21 06/10/22 06/10/22 History metformin 500 mg tablet 500 mg PO BIDWM 02/12/21 06/10/22 06/10/22 History omeprazole 20 mg capsule,delayed 20 mg PO DAILY@0630 02/12/21 06/10/22 06/10/22 History release rosuvastatin 40 mg tablet 40 mg PO BEDTIME 02/12/21 06/10/22 06/09/22 History spironolactone 25 mg tablet 25 mg PO BID@0900,1700 02/12/21 06/10/22 06/10/22 History melatonin 10 mg capsule 10 mg PO BEDTIME 10/16/21 06/10/22 06/09/22 History nitroglycerin 0.4 mg sublingual 0.4 mg sublingual Q5M PRN Chest 10/16/21 06/10/22 Unknown History tablet Pain sennosides 8.6 mg-docusate sodium 1 tab-cap PO BID PRN Constipation 10/16/21 06/10/22 Unknown History 50 mg capsule (Senna Plus) trazodone 100 mg tablet 100 mg PO BEDTIME 10/16/21 06/10/22 06/09/22 History methadone 10 mg/5 mL oral solution 35 mg PO DAILY 04/02/22 06/10/22 06/10/22 History albuterol sulfate 2.5 mg/3 mL 1 amp inhalation Q4-6H PRN 06/08/22 06/10/22 Unknown History (0.083 %) solution for nebulization Shortness Of Breath clonidine HCl 0.1 mg tablet 1 tab PO DAILY 06/08/22 06/10/22 06/10/22 History empagliflozin 10 mg tablet 10 mg PO DAILY 06/08/22 06/10/22 06/10/22 History (Jardiance) fluticasone 250 mcg-salmeterol 50 1 puff inhalation BID 06/08/22 06/10/22 06/10/22 History mcg/dose blistr powdr for inhalation (Advair Diskus) tiotropium bromide 18 mcg capsule 1 cap inhalation DAILY 06/08/22 06/10/22 06/10/22 History with inhalation device (Spiriva with HandiHaler) verapamil 240 mg tablet,extended 240 mg PO BEDTIME 06/08/22 06/10/22 06/09/22 History release acetaminophen 650 mg 2 tab PO Q8H PRN Pain (Scale Score 06/10/22 06/10/22 Unknown History tablet,extended release 1-3) Physical Exam Vital Signs and Narrative: Vital Signs: Last Vital Signs Temp 98.4 F 06/10/22 10:14 Pulse 74 06/10/22 16:14 Resp 18 06/10/22 16:14 BP 179/99 H 06/10/22 16:14 Pulse Ox 94 06/10/22 16:14 O2 Del Method 06/10/22 16:14 BMI result Body Mass Index 48.4 Appearance: Alert.? Oriented X3.? not in distress.? Eyes: Pupils equal, round and reactive to light.? Sclera nonicteric.? ENT: Pharynx normal.? Moist mucous membranes. cvs: rrr, [id number]. res: diminshed breath sounds ,has few wheezing abd: no rebound or guarding ,nt, bs present. ext pulses present , no cyanosis ,leg swellin, has some similar dime-size shear wound, some areas of weeping likely from edema . neuro: axo3 , nonfocal. Results Labs CBC and Chem 7: 06/10/22 12:16 06/10/22 12:16 Labs: Laboratory Results - last 24 hr 06/10/22 06/10/22 06/10/22 12:16 12:16 12:16 MCV 76.4 L MCH 22.5 L MCHC 29.5 L RDW 17.0 H Plt Count 273 MPV 10.2 Immature Gran % (Auto) 0.3 Neut % (Auto) 78.3 H Lymph % (Auto) 13.5 L Luna % (Auto) 6.2 Eos % (Auto) 1.5 Baso % (Auto) 0.2 Lymph # (Auto) 1.4 Luna # (Auto) 0.6 Eos # (Auto) 0.2 Baso # (Auto) 0.0 Abs Immat Gran (auto) 0.03 Absolute Neuts (auto) 7.9 Absolute Nucleated RBC 0.000 Nucleated RBC % (auto) 0.0 D-Dimer High Sensitivty VBG pH VBG pCO2 VBG pO2 VBG HCO3 VBG O2 Saturation VBG Base Excess Anion Gap 14 Estim Creat Clear Calc 85.4 Estimated GFR > 60 Random Glucose 267 H Lactic Acid Calcium 8.8 Total Bilirubin 0.3 Direct Bilirubin 0.2 AST 22 ALT 24 Alkaline Phosphatase 117 Troponin I High Sens 66.7 H B-Natriuretic Peptide 147 H Total Protein 6.2 L Albumin 3.8 COVID-19 (ANT) COVID-[employer] 06/10/22 06/10/22 06/10/22 14:35 14:35 14:39 MCV MCH MCHC RDW Plt Count MPV Immature Gran % (Auto) Neut % (Auto) Lymph % (Auto) Luna % (Auto) Eos % (Auto) Baso % (Auto) Lymph # (Auto) Luna # (Auto) Eos # (Auto) Baso # (Auto) Abs Immat Gran (auto) Absolute Neuts (auto) Absolute Nucleated RBC Nucleated RBC % (auto) D-Dimer High Sensitivty VBG pH 7.32 VBG pCO2 68 VBG pO2 35 VBG HCO3 35 H VBG O2 Saturation 52.0 VBG Base Excess 7.2 Anion Gap Estim Creat Clear Calc Estimated GFR Random Glucose Lactic Acid 1.8 Calcium Total Bilirubin Direct Bilirubin AST ALT Alkaline Phosphatase Troponin I High Sens B-Natriuretic Peptide Total Protein Albumin COVID-19 (ANT) Negative COVID-[employer] Com See Note 06/10/22 16:01 MCV MCH MCHC RDW Plt Count MPV Immature Gran % (Auto) Neut % (Auto) Lymph % (Auto) Luna % (Auto) Eos % (Auto) Baso % (Auto) Lymph # (Auto) Luna # (Auto) Eos # (Auto) Baso # (Auto) Abs Immat Gran (auto) Absolute Neuts (auto) Absolute Nucleated RBC Nucleated RBC % (auto) D-Dimer High Sensitivty 176 VBG pH VBG pCO2 VBG pO2 VBG HCO3 VBG O2 Saturation VBG Base Excess Anion Gap Estim Creat Clear Calc Estimated GFR Random Glucose Lactic Acid Calcium Total Bilirubin Direct Bilirubin AST ALT Alkaline Phosphatase Troponin I High Sens B-Natriuretic Peptide Total Protein Albumin COVID-19 (ANT) COVID-19 Clin Com Imaging Radiologist's Impressions: Impressions Chest X-Ray 06/10/22 16:10 IMPRESSION: Unremarkable examination. Assessment and Plan (1) New onset right bundle branch block (RBBB): Status: Acute (2) Lower extremity edema: Status: Acute (3) Acute exacerbation of congestive heart failure: Status: Acute (4) Hypertensive urgency: Status: Acute (5) COPD exacerbation: Status: Acute Plan 61-year-old man admitted with right lower extremity edema and some shortness of breath with ambulation Heart failure with preserved ejection fraction, acute exacerbation IV Lasix 40 mg b.i.d. Last echocardiogram with EF of 50-55% with grade 2 diastolic dysfunction. Cardiology consultation Monitor on telemetry Daily weights Strict intake and output tropnin x1 elevated , 2nd trop pending Continue carvedilol, spironolactone-consider infectious dis eval if does not improve. weaping RLE, no cellulitis noted, local wound care- COPD-seems mild excerebation Started on nebs, steroids. Hypertension-elevated blood presures. Continue losartan, isosorbide, hydralazine, verapamil, clonidine Monitor blood pressure closely Mental health Continue home medications Substance abuse Every day heroine use Urine drug screen Verify Methadone dose GERD Continue PPI Morbid obesity:: Advised to lose weight. DVT prophylaxis Lovenox inaptient need:Heart failure with preserved ejection fraction, acute exacerbation,copd excerebation-need IV Lasix as well as nebs, steroids- patient may benefit from 2 midnight stays, assessment and plan are discussed with the patient detail length he understand and in agreement with the above plan, time spent 70 minute, patient full code. Quality Stroke Does the patient have a stroke diagnosis?: No VTE Prior VTE?: No VTE Risk Level:: Medical - moderate - high VTE Device Contraindication: N/A - Device Ordered VTE Drug Contraindication: N/A - Med Ordered
--- NOTE | 2022-06-10 17:59 | PHA.MEDREC ---
Pharmacy Consult ? Medication Reconciliation Pharmacy has completed the medication reconciliation. Spoke with patient in the ED. Patient took all AM meds including methadone. patient reports methadone dose at 35 mg daily and goes to clinic on [facility] in [place].
[2022-06-10 18:16] VITALS: BP 190/100; PULSE 74; RESP 18; O2SAT 96
[2022-06-10 18:19] LABS: Troponin-I High Sensitivity 69.9 ng/L (<3.5-35.0)
[2022-06-10] MEDS: Enoxaparin Sodium 40 MG/0.4 ML SYRINGE SUBCUT (18:46)
[2022-06-10] MEDS: predniSONE 20 MG TABLET 40 MG PO (18:47)
[2022-06-10 19:53] VITALS: PULSE 88; RESP 18; O2SAT 95
[2022-06-10] MEDS: Albuterol/Iprat 2.5/0.5MG 3 ML AMPUL.NEB INHALE (19:53)
[2022-06-10 20:36] LABS: Glucose, Whole Blood 248 mg/dL (60-115)
[2022-06-10] MEDS: Calcium + Vitamin D 250 MG TABLET 500 MG PO (21:32)
[2022-06-10] MEDS: Insulin Lispro 100 UNIT/ML 3 ML VIAL SUBCUT (21:32)
[2022-06-10] MEDS: hydrALAZINE HCl 50 MG TABLET 100 MG PO (21:32)
[2022-06-10] MEDS: traZODone HCL 100 MG TABLET PO (21:33)
[2022-06-10] MEDS: amLODIPine Besylate 10 MG TABLET PO (21:33)
[2022-06-10] MEDS: Melatonin 3 MG TABLET 9 MG PO (21:33)
[2022-06-10] MEDS: Atorvastatin Calcium 80 MG TABLET PO (21:34)
[2022-06-10] MEDS: Furosemide 40 MG/4 ML VIAL IVPUSH (21:34)
[2022-06-10] MEDS: carvediloL 25 MG TABLET PO (21:34)
[2022-06-10 22:04] LABS: Appearance Urine Clear; Color Urine Yellow; Glucose Urine UA 500 mg/dL (Negative); Leukocyte Esterase Urine Negative (Negative); Nitrite Urine Negative (Negative); PH 6.5 (5.0-9.0); Specific Gravity - Urine 1.015 (1.005-1.025); UMIC TRIGGER UACC YES; Urine Blood Negative (Negative); Urine Ketones Negative (Negative); Urine Protein 30 (1+) mg/dL (Neg-Trace)
[2022-06-10 22:24] LABS: Amphetamine Screen Urine Not Detected (Not Detect); Barbiturates, Urine Not Detected (Not Detect); Benzodiazepines Screen Urine Not Detected (Not Detect); Cannabinoid Screen Urine Not Detected (Not Detect); Cocaine Screen Urine POSITIVE (Not Detect); Fentanyl, urine POSITIVE (Not Detect); Opiate Screen Urine POSITIVE (Not Detect); Phencyclidine Screen Urine Not Detected (Not Detect)
[2022-06-10] MEDS: VerapamiL HCL SR 240 MG TABLET.ER PO (22:34)
[2022-06-10 22:39] VITALS: BP 153/99; PULSE 69; RESP 17; TEMP 36.6; O2SAT 97
[2022-06-10 22:44] LABS: Bacteria Urine None Seen (None Seen); Hyaline Casts Urine 0-2 /LPF (0-2); RBC Urine 0-2 /HPF (0-2); Squamous Epithelial Cell Urine 0-2 /HPF (0-2); WBC Urine 0-5 /HPF (0-5)
[2022-06-11] VITALS (10 sets, daily range): BP systolic 104–164; BP diastolic 56–91; PULSE 55–66; RESP 14–20; TEMP 36.2–37; O2SAT 93–97; BMI 52.9; BMI 54.2
[2022-06-11] MEDS: 0.9 % Sodium Chloride Flush 3 ML SYRINGE IVFLUSH ×4 (00:47→20:35)
--- NOTE | 2022-06-11 01:23 | PC.NURSE ---
Nurse to nurse report is given to DELMIS Sim Patient to be transferred to overflow unit, bed 2.
--- NOTE | 2022-06-11 01:30 | PC.NURSE ---
resting quietly,lungs dim with exp wheezes right and bases,occ karen non prod cough.o2 on at 2l,sat 97%.2-3 + bilat lower ext edema.dressing with chris wrap intact to right lower leg blisters.denies pain.monitor sb,bbb,hr 50;s.
[2022-06-11] MEDS: Omeprazole 20 MG CAPSULE.DR PO (06:17)
--- NOTE | 2022-06-11 07:00 | CA_ITS ---
Transthoracic Echocardiogram Patient (Last, First, Middle): Christine Meier, Gender: Male Date of : 1960 Age: 61 Procedure Date: 06/11/2022 Procedure Type: Transthoracic Echocardiogram Location: [facility] [place] [facility] [place] Height: 167.64 cm Weight: 148.33 kg BSA: 2.46 m2 Heart Rate: bpm BP: 128 / 68 mmHg International Exchange Coordinator: Referring MD: Juan Mccann MD Symptoms: chf Study Quality: Fair, Contrast used ECG Rhythm: Sinus Conclusions: - The left ventricular systolic function is normal. The visually estimated ejection fraction is between 55-60%. - There is severely increased left ventricular wall thickness. - Evidence suggests grade II (moderate) diastolic dysfunction. - The left atrium is severely dilated. - No obvious valvular pathology seen on this study. Findings Left Ventricle Normal left ventricular cavity size. There is severely increased left ventricular wall thickness. The left ventricular systolic function is normal. The visually estimated ejection fraction is between 55-60%. There is no evidence of regional wall motion abnormalities. E/E prime ratio is >15, consistent with elevated filling pressures. Evidence suggests grade II (moderate) diastolic dysfunction. Right Ventricle Normal right ventricular cavity size and systolic function. Atria The left atrium is severely dilated. Interatrial shunt cannot be excluded. The right atrium is normal in size. Aortic Valve There is a normal trileaflet aortic valve. There is no aortic valve stenosis. There is no aortic valve regurgitation. Mitral Valve The mitral valve appears normal. There is trace mitral valve regurgitation. There is no mitral valve stenosis. Pulmonic Valve The pulmonic valve is likely normal. Tricuspid Valve Normal tricuspid valve structure. There is trace tricuspid valve regurgitation. There is no evidence of pulmonary hypertension. Great Vessels The asc aorta is normal in size. Venous The inferior vena cava is normal in size and collapses greater than 50% with inspiration. Pericardium/Pleural There is no evidence of pericardial effusion. Prior Study Comparison Changes noted compared to prior study dated: 02/14/2021. See comments on LVH. Recommendations, Care & Conclusions No obvious valvular pathology seen on this study. Measurements 2D Linear Measurements IVSd: 1.93 0.6-0.9/0.6-1.0 cm LVIDd: 6.47 3.9-5.3/4.2-5.9 cm LVIDd Index: 2.63 2.4-3.2/2.2-3.1 cm/m2 LVIDs: 4.01 2.0-3.6 cm LVPWd: 1.83 0.7-1.1 cm Ao Root: 3.30 2.1-3.5 cm LA Diam: 5.40 2.7-3.8/3.0-4.0 cm LAIDs Index: 2.20 1.5-2.3 cm/m2 LV Mass: 831.75 67-162/88-224 g LV Mass Index: 338.11 43-95/49-115 g/m2 LVOT Diam: 2.30 3.0+(-)1.3 cm 2D Systolic Function EF 4C: 62.20 >55% EF 2C: 68.60 >55% EF BiP: 66.80 >55% Mitral Valve MV Pk E: 1.21 MV PK A: 0.91 MV Decel Time: 251.00 E/A: 1.30 E'Lateral: 6.96 E'Medial: 5.55 E/E' Med: 21.80 E/E' Lat: 17.40 PHT: 73.00 MVA PHT: 3.01 Decel Dickens: 4.82 Aortic Valve AoV Pk Jerry: 2.00 AoV Mn Jerry: 1.33 AoV VTI: 0.46 AoV Pk Grad: 16.00 Aov Mn Grad: 8.00 BREE Cont.VTI: 2.26 LVOT LVOT Pk Jerry: 1.07 LVOT Mn Jerry: 0.75 LVOT VTI: 0.25 LVOT Pk Grad: 5.00 LVOT Mn Grad: 3.00 LVOT Diam: 2.30 LVOT Area: 4.15 Diastolic Function MV Pk E: 1.21 MV Pk A: 0.91 E/A: 1.30 E'Medial: 5.55 E/E' Med: 21.80 E' Laterial: 6.96 E/E' Lat: 17.40 Right Ventricle TAPSE (mm): 28.00 TVS' Jerry: 13.00 Tricuspid Valve TR Pk Jerry: 2.09 TR Pk Grad: 17.00 RA Press: 3.00 RVSP: 20.00 Great Vessels Aorta Ao Root-2D: 3.30 2.0-3.7 cm Ao Asc: 3.60 2.1-3.4 cm Pulmonary Valve PV Pk Jerry: 1.07 Peak PV Grad: 5.00 Updated in Other Vendor System with Status of Final Remy Hill MD electronically signed on 06/11/2022 11:32:33 AM with status of Final
[2022-06-11 07:21] LABS: Glucose, Whole Blood 284 mg/dL (60-115)
[2022-06-11] MEDS: Albuterol/Iprat 2.5/0.5MG 3 ML AMPUL.NEB INHALE ×2 (07:44→19:57)
--- NOTE | 2022-06-11 09:36 | MHC.CM.PN ---
Patient lives alone and has received tok tok tok/Constant Therapy vax X1. DC Plan appears to be home no services VS new VNA vs Care Team intervention r/t daily Heroin use. CM has initiated and will follow for dc planning. PCP is from [facility].
--- NOTE | 2022-06-11 09:52 | HO.PM.IMPN ---
Subjective Subjective Date of Service: 06/11/22 Interval History: Seen in f/u for exacerbation of CHF Interval history: feels better less sob of breah Review of Systems no sob no fever swollen legs Physical Exam Vital Signs: Vital Signs: Last Vital Signs Temp 97.5 F 06/11/22 07:49 Pulse 66 06/11/22 07:49 Resp 18 06/11/22 07:49 BP 138/62 06/11/22 07:49 Pulse Ox 97 06/11/22 07:49 O2 Del Method 06/11/22 07:49 O2 Flow Rate 2 06/11/22 07:49 BMI result Body Mass Index 52.9 Const: Other: General: AO X 3, no acute distress Resp: CTA bilateral CVS: S1,S2,RRR, 1 to 2+ pitting bilat GI: +BS, NT, no distention Skin: no cyanosis ,leg swelling, has some similar dime-size shear wound, some areas of weeping likely from edema Neuro: motor grossly intact Psych: appropriate affect Objective Data Active Medications Acetaminophen (Acetaminophen 325 Mg Tablet) 650 mg PO Q8H PRN PRN Reason: Pain (Scale Score 1-3) Albuterol/Ipratropium (Albuterol/Iprat 2.5/0.5mg 3 Ml Ampul.Neb) 3 ml INHALE RQ4H [facility] Last Admin: 06/11/22 07:44 Dose: 3 ml Documented By: FIFI Amlodipine Besylate (Amlodipine Besylate 10 Mg Tablet) 10 mg PO BEDTIME [facility]; Protocol Last Admin: 06/10/22 21:33 Dose: 10 mg Documented By: MARIA TERESA Atorvastatin Calcium (Atorvastatin Calcium 80 Mg Tablet) 80 mg PO BEDTIME [facility] Last Admin: 06/10/22 21:34 Dose: 80 mg Documented By: MARIA TERESA Bupropion HCl (Bupropion Hcl Xl 300 Mg Tab.Er.24h) 300 mg PO DAILY [facility] Calcium Carbonate/Cholecalciferol (Calcium + Vitamin D 250 Mg Tablet) 500 mg PO BID [facility] Last Admin: 06/10/22 21:32 Dose: 500 mg Documented By: MARIA TERESA Carvedilol (Carvedilol 25 Mg Tablet) 25 mg PO BID [facility]; Protocol Last Admin: 06/10/22 21:34 Dose: 25 mg Documented By: MARIA TERESA Clonidine HCl (Clonidine Hcl 0.1 Mg Tablet) 0.1 mg PO DAILY [facility]; Protocol Clopidogrel Bisulfate (Clopidogrel Bisulfate 75 Mg Tablet) 75 mg PO DAILY [facility] Dextrose (Dextrose 50 % 25 Gm/50 Ml Syringe) 25 gm IVPUSH Q15M PRN; Protocol PRN Reason: per Hypoglycemia Standing Ord. Enoxaparin Sodium (Enoxaparin Sodium 40 Mg/0.4 Ml Syringe) 40 mg SUBCUT Q24H [facility] Last Admin: 06/10/22 18:46 Dose: 40 mg Documented By: LEROY Fluticasone Propionate (Fluticasone Propionate Nasal 16 Gm Rector) 2 spray NOSTRIL-B DAILY [facility] Fluticasone/Vilanterol (Fluticasone/Vilanterol 100/25 Blst.W.Dev) 1 puff INHALE RDAILY [facility] Furosemide (Furosemide 40 Mg/4 Ml Vial) 40 mg IVPUSH BID [facility]; Protocol Last Admin: 06/10/22 21:34 Dose: 40 mg Documented By: MARIA TERESA Glucose (Glucose Gel 15 Gm Gel..Gram.) 15 gm PO Q15M PRN; Protocol PRN Reason: per Hypoglycemia Standing Ord. Hydralazine HCl (Hydralazine Hcl 50 Mg Tablet) 100 mg PO TID [facility]; Protocol Last Admin: 06/10/22 21:32 Dose: 100 mg Documented By: MARIA TERESA Insulin Human Lispro (Insulin Lispro 100 Unit/Ml 3 Ml Vial) 0 unit SUBCUT QIDACHS [facility]; Protocol Last Admin: 06/10/22 21:32 Dose: 4 unit Documented By: MARIA TERESA Isosorbide Mononitrate (Isosorbide Mononitrate 30 Mg Tab.Er.24h) 90 mg PO DAILY [facility]; Protocol Losartan Potassium (Losartan Potassium 50 Mg Tablet) 150 mg PO DAILY [facility]; Protocol Melatonin (Melatonin 3 Mg Tablet) 9 mg PO BEDTIME [facility] Last Admin: 06/10/22 21:33 Dose: 9 mg Documented By: MARIA TERESA Nitroglycerin (Nitroglycerin 0.4 Mg Tab.Subl) 0.4 mg SUBLINGUAL Q5M PRN PRN Reason: Chest Pain Omeprazole (Omeprazole 20 Mg Capsule.Dr) 20 mg PO DAILY@0630 [facility] Last Admin: 06/11/22 06:17 Dose: 20 mg Documented By: YOU Pharmacy Consult (Consult Rx Perform Med Rec) 1 each MISCELLANE ONCE PRN PRN Reason: Consult order Prednisone (Prednisone 20 Mg Tablet) 40 mg PO DAILY [facility] Last Admin: 06/10/22 18:47 Dose: 40 mg Documented By: LEROY Senna/Docusate Sodium (Sennosides/Docusate Sodium Tablet) 1 tab PO BID PRN PRN Reason: Constipation Sodium Chloride (0.9 % Sodium Chloride Flush 3 Ml Syringe) 3 ml IVFLUSH QSHIFT [facility] Last Admin: 06/11/22 00:47 Dose: 3 ml Documented By: MARIA TERESA Spironolactone (Spironolactone 25 Mg Tablet) 25 mg PO BID@0900,1700 [facility]; Protocol Tiotropium Lacey (Tiotropium Lacey 18 Mcg Cap.W.Dev) 1 puff INHALE RDAILY [facility] Trazodone HCl (Trazodone Hcl 100 Mg Tablet) 100 mg PO BEDTIME [facility] Last Admin: 06/10/22 21:33 Dose: 100 mg Documented By: MARIA TERESA Verapamil HCl (Verapamil Hcl Sr 240 Mg Tablet.Er) 240 mg PO BEDTIME [facility]; Protocol Last Admin: 06/10/22 22:34 Dose: 240 mg Documented By: MARIA TERESA Vitamin D (Cholecalciferol (Vitamin D3) 25 Mcg Tablet) 25 mcg PO DAILY [facility] Labs CBC & Chem 7: 06/10/22 12:16 06/10/22 12:16 Labs: Laboratory Results - last 24 hr 06/10/22 06/10/22 06/10/22 12:16 12:16 12:16 MCV 76.4 L MCH 22.5 L MCHC 29.5 L RDW 17.0 H Plt Count 273 MPV 10.2 Immature Gran % (Auto) 0.3 Neut % (Auto) 78.3 H Lymph % (Auto) 13.5 L [place] % (Auto) 6.2 Eos % (Auto) 1.5 Baso % (Auto) 0.2 Lymph # (Auto) 1.4 [place] # (Auto) 0.6 Eos # (Auto) 0.2 Baso # (Auto) 0.0 Abs Immat Gran (auto) 0.03 Absolute Neuts (auto) 7.9 Absolute Nucleated RBC 0.000 Nucleated RBC % (auto) 0.0 D-Dimer High Sensitivty VBG pH VBG pCO2 VBG pO2 VBG HCO3 VBG O2 Saturation VBG Base Excess Anion Gap 14 Estim Creat Clear Calc 85.4 Estimated GFR > 60 POC Glucose Random Glucose 267 H Lactic Acid Calcium 8.8 Total Bilirubin 0.3 Direct Bilirubin 0.2 AST 22 ALT 24 Alkaline Phosphatase 117 Troponin I High Sens 66.7 H B-Natriuretic Peptide 147 H Total Protein 6.2 L Albumin 3.8 Urine Color Urine Appearance Urine pH Ur Specific [place] Urine Protein Urine Glucose (UA) Urine Ketones Urine Blood Urine Nitrite Ur Leukocyte Esterase Urine RBC Urine WBC Ur Squamous Epith Cells Urine Bacteria Hyaline Casts Urine Opiates Screen Urine Fentanyl Screen Ur Barbiturates Screen Ur Phencyclidine Scrn Ur Amphetamines Screen U Benzodiazepines Scrn Urine Cocaine Screen U Marijuana (THC) Screen COVID-19 (ANT) COVID-Nutrisystem 06/10/22 06/10/22 06/10/22 14:35 14:35 14:39 MCV MCH MCHC RDW Plt Count MPV Immature Gran % (Auto) Neut % (Auto) Lymph % (Auto) [place] % (Auto) Eos % (Auto) Baso % (Auto) Lymph # (Auto) [place] # (Auto) Eos # (Auto) Baso # (Auto) Abs Immat Gran (auto) Absolute Neuts (auto) Absolute Nucleated RBC Nucleated RBC % (auto) D-Dimer High Sensitivty VBG pH 7.32 VBG pCO2 68 VBG pO2 35 VBG HCO3 35 H VBG O2 Saturation 52.0 VBG Base Excess 7.2 Anion Gap Estim Creat Clear Calc Estimated GFR POC Glucose Random Glucose Lactic Acid 1.8 Calcium Total Bilirubin Direct Bilirubin AST ALT Alkaline Phosphatase Troponin I High Sens B-Natriuretic Peptide Total Protein Albumin Urine Color Urine Appearance Urine pH Ur Specific [place] Urine Protein Urine Glucose (UA) Urine Ketones Urine Blood Urine Nitrite Ur Leukocyte Esterase Urine RBC Urine WBC Ur Squamous Epith Cells Urine Bacteria Hyaline Casts Urine Opiates Screen Urine Fentanyl Screen Ur Barbiturates Screen Ur Phencyclidine Scrn Ur Amphetamines Screen U Benzodiazepines Scrn Urine Cocaine Screen U Marijuana (THC) Screen COVID-19 (ANT) Negative COVID-Nutrisystem See Note 06/10/22 06/10/22 06/10/22 16:01 17:47 20:29 MCV MCH MCHC RDW Plt Count MPV Immature Gran % (Auto) Neut % (Auto) Lymph % (Auto) [place] % (Auto) Eos % (Auto) Baso % (Auto) Lymph # (Auto) [place] # (Auto) Eos # (Auto) Baso # (Auto) Abs Immat Gran (auto) Absolute Neuts (auto) Absolute Nucleated RBC Nucleated RBC % (auto) D-Dimer High Sensitivty 176 VBG pH VBG pCO2 VBG pO2 VBG HCO3 VBG O2 Saturation VBG Base Excess Anion Gap Estim Creat Clear Calc Estimated GFR POC Glucose 248 H Random Glucose Lactic Acid Calcium Total Bilirubin Direct Bilirubin AST ALT Alkaline Phosphatase Troponin I High Sens 69.9 H B-Natriuretic Peptide Total Protein Albumin Urine Color Urine Appearance Urine pH Ur Specific [place] Urine Protein Urine Glucose (UA) Urine Ketones Urine Blood Urine Nitrite Ur Leukocyte Esterase Urine RBC Urine WBC Ur Squamous Epith Cells Urine Bacteria Hyaline Casts Urine Opiates Screen Urine Fentanyl Screen Ur Barbiturates Screen Ur Phencyclidine Scrn Ur Amphetamines Screen U Benzodiazepines Scrn Urine Cocaine Screen U Marijuana (THC) Screen COVID-19 (ANT) COVID-19 Clin Com 06/10/22 06/10/22 06/11/22 21:55 21:55 07:16 MCV MCH MCHC RDW Plt Count MPV Immature Gran % (Auto) Neut % (Auto) Lymph % (Auto) [place] % (Auto) Eos % (Auto) Baso % (Auto) Lymph # (Auto) [place] # (Auto) Eos # (Auto) Baso # (Auto) Abs Immat Gran (auto) Absolute Neuts (auto) Absolute Nucleated RBC Nucleated RBC % (auto) D-Dimer High Sensitivty VBG pH VBG pCO2 VBG pO2 VBG HCO3 VBG O2 Saturation VBG Base Excess Anion Gap Estim Creat Clear Calc Estimated GFR POC Glucose 284 H Random Glucose Lactic Acid Calcium Total Bilirubin Direct Bilirubin AST ALT Alkaline Phosphatase Troponin I High Sens B-Natriuretic Peptide Total Protein Albumin Urine Color Yellow Urine Appearance Clear Urine pH 6.5 Ur Specific [place] 1.015 Urine Protein 30 (1+) H Urine Glucose (UA) 500 H Urine Ketones Negative Urine Blood Negative Urine Nitrite Negative Ur Leukocyte Esterase Negative Urine RBC 0-2 Urine WBC 0-5 Ur Squamous Epith Cells 0-2 Urine Bacteria None Seen Hyaline Casts 0-2 Urine Opiates Screen POSITIVE H Urine Fentanyl Screen POSITIVE H Ur Barbiturates Screen Not Detected Ur Phencyclidine Scrn Not Detected Ur Amphetamines Screen Not Detected U Benzodiazepines Scrn Not Detected Urine Cocaine Screen POSITIVE H U Marijuana (THC) Screen Not Detected COVID-19 (ANT) COVID-19 Clin Com Assessment and Plan (1) CHF exacerbation: Status: Acute (2) New onset right bundle branch block (RBBB): Status: Acute Plan 61-year-old man admitted with right lower extremity edema and some shortness of breath with ambulation Heart failure with preserved ejection fraction with acute exacerbation -IV Lasix 40 mg b.i.d. -Last echocardiogram with EF of 50-55% with grade 2 diastolic dysfunction. -Cardiology consultation -Monitor weight, I/O, and salt intake -Continue carvedilol, spironolactone- -weeping RLE, no cellulitis noted, local wound care--ID if the appearance of infection New RBBB--cardiology to advise on next step, no acute ischemic finding COPD-seems mild exacerbation -Bronchodilators by Neb, Prednisone at 20 daily Hypertension-controlled Continue losartan, isosorbide, hydralazine, verapamil, clonidine Mental health Continue home medications Substance abuse Every day heroine use -Methadone, addiction med consult GERD Continue PPI Morbid obesity::? Advised to lose weight as making his health issues worse DVT prophylaxis Lovenox inpatient need: Heart failure needing IV diuretics and monitoring for clinical response and electrolytes, renal function Quality Stroke Does the patient have a stroke diagnosis?: No VTE Prior VTE?: No VTE Risk Level:: Medical - moderate - high VTE Device Contraindication: N/A - Device Ordered VTE Drug Contraindication: N/A - Med Ordered
[2022-06-11] MEDS: Insulin Lispro 100 UNIT/ML 3 ML VIAL SUBCUT ×4 (10:24→20:32)
[2022-06-11] MEDS: Furosemide 40 MG/4 ML VIAL IVPUSH ×2 (10:25→20:32)
[2022-06-11] MEDS: Losartan Potassium 50 MG TABLET 150 MG PO (10:25)
[2022-06-11] MEDS: Cholecalciferol (Vitamin D3) 25 MCG TABLET PO (10:26)
[2022-06-11] MEDS: Spironolactone 25 MG TABLET PO ×2 (10:26→17:55)
[2022-06-11] MEDS: Clopidogrel Bisulfate 75 MG TABLET PO (10:26)
[2022-06-11] MEDS: hydrALAZINE HCl 50 MG TABLET 100 MG PO ×3 (10:26→20:34)
[2022-06-11] MEDS: cloNIDine HCL 0.1 MG TABLET PO (10:27)
[2022-06-11] MEDS: Calcium + Vitamin D 250 MG TABLET 500 MG PO ×2 (10:27→20:34)
[2022-06-11] MEDS: carvediloL 25 MG TABLET PO ×2 (10:27→20:34)
[2022-06-11] MEDS: buPROPion HCl XL 300 MG TAB.ER.24H PO (10:31)
[2022-06-11] MEDS: Isosorbide Mononitrate 30 MG TAB.ER.24H 90 MG PO (10:43)
[2022-06-11] MEDS: predniSONE 20 MG TABLET 40 MG PO (10:44)
--- NOTE | 2022-06-11 10:50 | PM.CNCAR ---
History of Present Illness History of Present Illness Date of Service: 06/11/22 Chief complaint: chf exacerbation, leg swelling Narrative: This is a cardiology consultation regarding possible congestive heart failure. It seems that patient was just in the hospital few days ago but decided to sign against medical advice. He has multiple comorbidities including CHF, COPD, obesity, daily heroin use. He does have chronic lower extremity swelling but more so recently. Apparently has gained weight over the last few weeks. Some shortness of breath with activity. He also carries a diagnosis of congestive heart failure with preserved LVEF and on Lasix and spironolactone at home. Otherwise, patient states that he does have obstructive sleep apnea but has not been using any CPAP recently. From the cardiac standpoint, no clear anginal-type symptoms. Leg swelling as described above. Denies any history of coronary artery disease or myocardial infarction. Review of Systems Review of Systems: Yes all other systems are reviewed and are negative Constitutional: Constitutional: Reports as per HPI Eyes: Eyes: Reports as per HPI ENT: Reports as per HPI Cardiovascular: Cardiovascular: Reports as per HPI, Denies acrocyanosis, Denies cool extremities, Denies chest pain, Reports pedal edema, Reports leg ulcers, Denies leg edema, Denies lightheadedness, Denies palpitations and Reports dyspnea Respiratory: Respiratory: Reports as per HPI, Reports no additional respiratory complaints and Reports dyspnea Gastrointestinal: Gastrointestinal: Reports as per HPI and Reports no additional gastrointestinal complaints Genitourinary: Genitourinary: Reports no additional male genitourinary complaints and Reports as per HPI Musculoskeletal: Musculoskeletal: Reports no additional musculoskeletal complaints and Reports as per HPI Integumentary/Breasts: Skin/Breast: Reports system reviewed and no additional complaints, except as docu Neurologic: Reports system reviewed and no additional complaints, except as documented and Reports as per HPI Psychiatric: Psychiatric: Reports no additional psychiatric complaints and Reports as per HPI Endocrine: Endocrine: Reports no additional endocrine complaints, Reports as per HPI and Denies palpitations Hematologic/Lymphatic: Hematologic/Lymphatic: Reports no additional hematologic/lymphatic complaints and Reports as per HPI Allergic/Immunologic: Allergic/Immunologic: Reports no additional allergic/immunologic complaints and Reports as per HPI [facility] Past Medical History Medical History Asthma Chronic allergic rhinitis Chronic restrictive lung disease Congestive heart failure COPD (chronic obstructive pulmonary disease) Coronary artery disease Diabetes Hyperlipidemia Hypertension Normocytic anemia Obesity Obstructive sleep apnea Opioid abuse Pulmonary nodule Streptococcal bacteremia Family History Family History Father No problems noted. Mother No problems noted. Surgical History Surgical History H/O hernia repair Hx of colonoscopy Social History Social History (Updated 06/11/22 @ 10:54 by Remy Hill MD) Household Members: None Housing: House Do you presently have visiting nurse or other home services: No Alcohol intake: never Patient Tobacco Use Status: Current everyday Tobacco user Substance Use Type: Crack/Cocaine and Heroin Advance Directives: No Advance Directives Information Provided: Yes service: No Current occupational status: disabled Current occupation: [employer] Meds Allergies Allergy/AdvReac Type Severity Reaction Status Date / Time crab [CRAB] Allergy Unknown ANAPHYLAXIS Verified 04/02/22 08:41 lisinopril [LISINOPRIL] Allergy Unknown cough Verified 04/02/22 08:41 Penicillins [PCN] Allergy Unknown RASH Verified 04/02/22 08:41 Sulfa (Sulfonamide Allergy Unknown RASH Verified 04/02/22 08:41 Antibiotics) [SULFA (SULFONAMIDE ANTIBIOTICS)] Active Medications: Current Medications Acetaminophen (Acetaminophen 325 Mg Tablet) 650 mg PO Q8H PRN PRN Reason: Pain (Scale Score 1-3) Albuterol/Ipratropium (Albuterol/Iprat 2.5/0.5mg 3 Ml Ampul.Neb) 3 ml INHALE RQ4H [facility] Last Admin: 06/11/22 07:44 Dose: 3 ml Amlodipine Besylate (Amlodipine Besylate 10 Mg Tablet) 10 mg PO BEDTIME [facility]; Protocol Last Admin: 06/10/22 21:33 Dose: 10 mg Atorvastatin Calcium (Atorvastatin Calcium 80 Mg Tablet) 80 mg PO BEDTIME ELVIE Last Admin: 06/10/22 21:34 Dose: 80 mg Bupropion HCl (Bupropion Hcl Xl 300 Mg Tab.Er.24h) 300 mg PO DAILY ELVIE Last Admin: 06/11/22 10:31 Dose: 300 mg Calcium Carbonate/Cholecalciferol (Calcium + Vitamin D 250 Mg Tablet) 500 mg PO BID [facility] Last Admin: 06/11/22 10:27 Dose: 500 mg Carvedilol (Carvedilol 25 Mg Tablet) 25 mg PO BID [facility]; Protocol Last Admin: 06/11/22 10:27 Dose: 25 mg Clonidine HCl (Clonidine Hcl 0.1 Mg Tablet) 0.1 mg PO DAILY [facility]; Protocol Last Admin: 06/11/22 10:27 Dose: 0.1 mg Clopidogrel Bisulfate (Clopidogrel Bisulfate 75 Mg Tablet) 75 mg PO DAILY [facility] Last Admin: 06/11/22 10:26 Dose: 75 mg Dextrose (Dextrose 50 % 25 Gm/50 Ml Syringe) 25 gm IVPUSH Q15M PRN; Protocol PRN Reason: per Hypoglycemia Standing Ord. Enoxaparin Sodium (Enoxaparin Sodium 40 Mg/0.4 Ml Syringe) 40 mg SUBCUT Q24H [facility] Last Admin: 06/10/22 18:46 Dose: 40 mg Fluticasone Propionate (Fluticasone Propionate Nasal 16 Gm Logan) 2 spray NOSTRIL-B DAILY [facility] Fluticasone/Vilanterol (Fluticasone/Vilanterol 100/25 Blst.W.Dev) 1 puff INHALE RDAILY [facility] Furosemide (Furosemide 40 Mg/4 Ml Vial) 40 mg IVPUSH BID [facility]; Protocol Last Admin: 06/11/22 10:25 Dose: 40 mg Glucose (Glucose Gel 15 Gm Gel..Gram.) 15 gm PO Q15M PRN; Protocol PRN Reason: per Hypoglycemia Standing Ord. Hydralazine HCl (Hydralazine Hcl 50 Mg Tablet) 100 mg PO TID [facility]; Protocol Last Admin: 06/11/22 10:26 Dose: 100 mg Insulin Human Lispro (Insulin Lispro 100 Unit/Ml 3 Ml Vial) 0 unit SUBCUT QIDACHS [facility]; Protocol Last Admin: 06/11/22 10:24 Dose: 6 unit Isosorbide Mononitrate (Isosorbide Mononitrate 30 Mg Tab.Er.24h) 90 mg PO DAILY [facility]; Protocol Last Admin: 06/11/22 10:43 Dose: 90 mg Losartan Potassium (Losartan Potassium 50 Mg Tablet) 150 mg PO DAILY [facility]; Protocol Last Admin: 06/11/22 10:25 Dose: 150 mg Melatonin (Melatonin 3 Mg Tablet) 9 mg PO BEDTIME [facility] Last Admin: 06/10/22 21:33 Dose: 9 mg Nitroglycerin (Nitroglycerin 0.4 Mg Tab.Subl) 0.4 mg SUBLINGUAL Q5M PRN PRN Reason: Chest Pain Omeprazole (Omeprazole 20 Mg Capsule.Dr) 20 mg PO DAILY@0630 [facility] Last Admin: 06/11/22 06:17 Dose: 20 mg Pharmacy Consult (Consult Rx Perform Med Rec) 1 each MISCELLANE ONCE PRN PRN Reason: Consult order Prednisone (Prednisone 20 Mg Tablet) 20 mg PO DAILY [facility] Senna/Docusate Sodium (Sennosides/Docusate Sodium Tablet) 1 tab PO BID PRN PRN Reason: Constipation Sodium Chloride (0.9 % Sodium Chloride Flush 3 Ml Syringe) 3 ml IVFLUSH QSHIFT [facility] Last Admin: 06/11/22 10:28 Dose: 3 ml Spironolactone (Spironolactone 25 Mg Tablet) 25 mg PO BID@0900,1700 [facility]; Protocol Last Admin: 06/11/22 10:26 Dose: 25 mg Tiotropium Success (Tiotropium Success 18 Mcg Cap.W.Dev) 1 puff INHALE RDAILY [facility] Trazodone HCl (Trazodone Hcl 100 Mg Tablet) 100 mg PO BEDTIME [facility] Last Admin: 06/10/22 21:33 Dose: 100 mg Verapamil HCl (Verapamil Hcl Sr 240 Mg Tablet.Er) 240 mg PO BEDTIME [facility]; Protocol Last Admin: 06/10/22 22:34 Dose: 240 mg Vitamin D (Cholecalciferol (Vitamin D3) 25 Mcg Tablet) 25 mcg PO DAILY [facility] Last Admin: 06/11/22 10:26 Dose: 25 mcg Home Medications Medication Instructions Recorded Confirmed Last Taken Type amlodipine 10 mg tablet 10 mg PO BEDTIME 02/12/21 06/10/22 06/09/22 History bupropion HCl 150 mg tablet,12 hr 150 mg PO BID 02/12/21 06/10/22 06/10/22 History sustained-release calcium carbonate 500 mg-vitamin 1 tab PO BID 02/12/21 06/10/22 06/10/22 History D3 10 mcg (400 unit) tablet (Oyster Shell Calcium-Vitamin D3) carvedilol 25 mg tablet 25 mg PO BID 02/12/21 06/10/22 06/10/22 History cholecalciferol (vitamin D3) 25 1,000 unit PO DAILY 02/12/21 06/10/22 06/10/22 History mcg (1,000 unit) tablet clopidogrel 75 mg tablet 75 mg PO DAILY 02/12/21 06/10/22 06/10/22 History fluticasone propionate 50 2 spray intranasal DAILY 02/12/21 06/10/22 06/10/22 History mcg/actuation nasal spray,suspension furosemide 40 mg tablet 40 mg PO DAILY 02/12/21 06/10/22 06/10/22 History hydralazine 100 mg tablet 100 mg PO TID 02/12/21 06/10/22 06/10/22 History isosorbide mononitrate 30 mg 90 mg PO DAILY 02/12/21 06/10/22 06/10/22 History tablet,extended release 24 hr losartan 100 mg tablet 150 mg PO DAILY 02/12/21 06/10/22 06/10/22 History metformin 500 mg tablet 500 mg PO BIDWM 02/12/21 06/10/22 06/10/22 History omeprazole 20 mg capsule,delayed 20 mg PO DAILY@0630 02/12/21 06/10/22 06/10/22 History release rosuvastatin 40 mg tablet 40 mg PO BEDTIME 02/12/21 06/10/22 06/09/22 History spironolactone 25 mg tablet 25 mg PO BID@0900,1700 02/12/21 06/10/22 06/10/22 History melatonin 10 mg capsule 10 mg PO BEDTIME 10/16/21 06/10/22 06/09/22 History nitroglycerin 0.4 mg sublingual 0.4 mg sublingual Q5M PRN Chest 10/16/21 06/10/22 Unknown History tablet Pain sennosides 8.6 mg-docusate sodium 1 tab-cap PO BID PRN Constipation 10/16/21 06/10/22 Unknown History 50 mg capsule (Senna Plus) trazodone 100 mg tablet 100 mg PO BEDTIME 10/16/21 06/10/22 06/09/22 History methadone 10 mg/5 mL oral solution 35 mg PO DAILY 04/02/22 06/10/22 06/10/22 History albuterol sulfate 2.5 mg/3 mL 1 amp inhalation Q4-6H PRN 06/08/22 06/10/22 Unknown History (0.083 %) solution for nebulization Shortness Of Breath clonidine HCl 0.1 mg tablet 1 tab PO DAILY 06/08/22 06/10/22 06/10/22 History empagliflozin 10 mg tablet 10 mg PO DAILY 06/08/22 06/10/22 06/10/22 History (Jardiance) fluticasone 250 mcg-salmeterol 50 1 puff inhalation BID 06/08/22 06/10/22 06/10/22 History mcg/dose blistr powdr for inhalation (Advair Diskus) tiotropium bromide 18 mcg capsule 1 cap inhalation DAILY 06/08/22 06/10/22 06/10/22 History with inhalation device (Spiriva with HandiHaler) verapamil 240 mg tablet,extended 240 mg PO BEDTIME 06/08/22 06/10/22 06/09/22 History release acetaminophen 650 mg 2 tab PO Q8H PRN Pain (Scale Score 06/10/22 06/10/22 Unknown History tablet,extended release 1-3) Physical Exam Vital Signs: Vital Signs: Last Vital Signs Temp 97.5 F 06/11/22 07:49 Pulse 66 06/11/22 07:49 Resp 18 06/11/22 07:49 BP 138/62 06/11/22 07:49 Pulse Ox 97 06/11/22 07:49 O2 Del Method 06/11/22 07:49 O2 Flow Rate 2 06/11/22 07:49 BMI result Body Mass Index 52.9 Const: General: comfortable and no acute distress Orientation/consciousness: patient oriented x3 HEENT: Other: Unremarkable Head: Yes normal to inspection Neck: Neck: Yes normal visual inspection Chest: Chest palpation & inspection: normal inspection of the chest Resp: Other: Scattered rhonchi Cardio: Palpation: normal PMI Heart sounds: S1 normal heart sound present, S2 normal heart sound present, no gallops, no murmurs and no rubs GI: Palpation (GI): Soft to palpation Back/Spine/Pelvis: Other: unremarkable Skin: General skin exam: no rashes or lesions noted Lesions: lesion noted (Right lower extremity, dressing over it.) Neuro: General: patient oriented x3 Extrem: General: Yes normal to inspection Right lower extremity: edema Details: pitting and 2+ Left lower extremity: edema Details: pitting and 2+ Psych: Mental Status: mental status grossly normal Objective Labs and Meds Result diagrams: 06/10/22 12:16 06/10/22 12:16 Lab results: Laboratory Results - last 24 hr 06/10/22 06/10/22 06/10/22 12:16 12:16 12:16 WBC 10.0 RBC 5.33 Hgb 12.0 L Hct 40.7 L MCV 76.4 L MCH 22.5 L MCHC 29.5 L RDW 17.0 H Plt Count 273 MPV 10.2 Immature Gran % (Auto) 0.3 Neut % (Auto) 78.3 H Lymph % (Auto) 13.5 L Campbell % (Auto) 6.2 Eos % (Auto) 1.5 Baso % (Auto) 0.2 Lymph # (Auto) 1.4 Campbell # (Auto) 0.6 Eos # (Auto) 0.2 Baso # (Auto) 0.0 Abs Immat Gran (auto) 0.03 Absolute Neuts (auto) 7.9 Absolute Nucleated RBC 0.000 Nucleated RBC % (auto) 0.0 D-Dimer High Sensitivty VBG pH VBG pCO2 VBG pO2 VBG HCO3 VBG O2 Saturation VBG Base Excess Sodium 141 Potassium 4.3 Chloride 101 Carbon Dioxide 30 H Anion Gap 14 BUN 22 H Creatinine 1.16 Estim Creat Clear Calc 85.4 Estimated GFR > 60 POC Glucose Random Glucose 267 H Lactic Acid Calcium 8.8 Total Bilirubin 0.3 Direct Bilirubin 0.2 AST 22 ALT 24 Alkaline Phosphatase 117 Troponin I High Sens 66.7 H B-Natriuretic Peptide 147 H Total Protein 6.2 L Albumin 3.8 Urine Color Urine Appearance Urine pH Ur Specific Mes[place] Urine Protein Urine Glucose (UA) Urine Ketones Urine Blood Urine Nitrite Ur Leukocyte Esterase Urine RBC Urine WBC Ur Squamous Epith Cells Urine Bacteria Hyaline Casts Urine Opiates Screen Urine Fentanyl Screen Ur Barbiturates Screen Ur Phencyclidine Scrn Ur Amphetamines Screen U Benzodiazepines Scrn Urine Cocaine Screen U Marijuana (THC) Screen COVID-19 (ANT) COVID-19 Clin Com 06/10/22 06/10/22 06/10/22 14:35 14:35 14:39 WBC RBC Hgb Hct MCV MCH MCHC RDW Plt Count MPV Immature Gran % (Auto) Neut % (Auto) Lymph % (Auto) Campbell % (Auto) Eos % (Auto) Baso % (Auto) Lymph # (Auto) Campbell # (Auto) Eos # (Auto) Baso # (Auto) Abs Immat Gran (auto) Absolute Neuts (auto) Absolute Nucleated RBC Nucleated RBC % (auto) D-Dimer High Sensitivty VBG pH 7.32 VBG pCO2 68 VBG pO2 35 VBG HCO3 35 H VBG O2 Saturation 52.0 VBG Base Excess 7.2 Sodium Potassium Chloride Carbon Dioxide Anion Gap BUN Creatinine Estim Creat Clear Calc Estimated GFR POC Glucose Random Glucose Lactic Acid 1.8 Calcium Total Bilirubin Direct Bilirubin AST ALT Alkaline Phosphatase Troponin I High Sens B-Natriuretic Peptide Total Protein Albumin Urine Color Urine Appearance Urine pH Ur Specific Mes[place] Urine Protein Urine Glucose (UA) Urine Ketones Urine Blood Urine Nitrite Ur Leukocyte Esterase Urine RBC Urine WBC Ur Squamous Epith Cells Urine Bacteria Hyaline Casts Urine Opiates Screen Urine Fentanyl Screen Ur Barbiturates Screen Ur Phencyclidine Scrn Ur Amphetamines Screen U Benzodiazepines Scrn Urine Cocaine Screen U Marijuana (THC) Screen COVID-19 (ANT) Negative COVID-19 Honestly Now See Note 06/10/22 06/10/22 06/10/22 16:01 17:47 20:29 WBC RBC Hgb Hct MCV MCH MCHC RDW Plt Count MPV Immature Gran % (Auto) Neut % (Auto) Lymph % (Auto) Campbell % (Auto) Eos % (Auto) Baso % (Auto) Lymph # (Auto) Campbell # (Auto) Eos # (Auto) Baso # (Auto) Abs Immat Gran (auto) Absolute Neuts (auto) Absolute Nucleated RBC Nucleated RBC % (auto) D-Dimer High Sensitivty 176 VBG pH VBG pCO2 VBG pO2 VBG HCO3 VBG O2 Saturation VBG Base Excess Sodium Potassium Chloride Carbon Dioxide Anion Gap BUN Creatinine Estim Creat Clear Calc Estimated GFR POC Glucose 248 H Random Glucose Lactic Acid Calcium Total Bilirubin Direct Bilirubin AST ALT Alkaline Phosphatase Troponin I High Sens 69.9 H B-Natriuretic Peptide Total Protein Albumin Urine Color Urine Appearance Urine pH Ur Specific Mes[place] Urine Protein Urine Glucose (UA) Urine Ketones Urine Blood Urine Nitrite Ur Leukocyte Esterase Urine RBC Urine WBC Ur Squamous Epith Cells Urine Bacteria Hyaline Casts Urine Opiates Screen Urine Fentanyl Screen Ur Barbiturates Screen Ur Phencyclidine Scrn Ur Amphetamines Screen U Benzodiazepines Scrn Urine Cocaine Screen U Marijuana (THC) Screen COVID-19 (ANT) COVID-19 Honestly Now 06/10/22 06/10/22 06/11/22 21:55 21:55 07:16 WBC RBC Hgb Hct MCV MCH MCHC RDW Plt Count MPV Immature Gran % (Auto) Neut % (Auto) Lymph % (Auto) Campbell % (Auto) Eos % (Auto) Baso % (Auto) Lymph # (Auto) Campbell # (Auto) Eos # (Auto) Baso # (Auto) Abs Immat Gran (auto) Absolute Neuts (auto) Absolute Nucleated RBC Nucleated RBC % (auto) D-Dimer High Sensitivty VBG pH VBG pCO2 VBG pO2 VBG HCO3 VBG O2 Saturation VBG Base Excess Sodium Potassium Chloride Carbon Dioxide Anion Gap BUN Creatinine Estim Creat Clear Calc Estimated GFR POC Glucose 284 H Random Glucose Lactic Acid Calcium Total Bilirubin Direct Bilirubin AST ALT Alkaline Phosphatase Troponin I High Sens B-Natriuretic Peptide Total Protein Albumin Urine Color Yellow Urine Appearance Clear Urine pH 6.5 Ur Specific Mesa 1.015 Urine Protein 30 (1+) H Urine Glucose (UA) 500 H Urine Ketones Negative Urine Blood Negative Urine Nitrite Negative Ur Leukocyte Esterase Negative Urine RBC 0-2 Urine WBC 0-5 Ur Squamous Epith Cells 0-2 Urine Bacteria None Seen Hyaline Casts 0-2 Urine Opiates Screen POSITIVE H Urine Fentanyl Screen POSITIVE H Ur Barbiturates Screen Not Detected Ur Phencyclidine Scrn Not Detected Ur Amphetamines Screen Not Detected U Benzodiazepines Scrn Not Detected Urine Cocaine Screen POSITIVE H U Marijuana (THC) Screen Not Detected COVID-19 (NAT) COVID-19 Clin Com ECG Interpretation: Admission EKG with sinus rhythm with right bundle-branch block pattern. This is a new finding and was not previously seen. Imaging Radiologist's impression: Impressions Chest X-Ray 06/10/22 16:10 IMPRESSION: Unremarkable examination. Assessment and Plan (1) Acute on chronic right heart failure: Status: Acute (2) New onset right bundle branch block (RBBB): Status: Acute (3) Cocaine abuse: Status: Acute (4) Heroin abuse: Status: Acute Plan Labs positive for opiates, Ventolin screen, cocaine. Cardiac BNP is 147. Troponin slightly elevated. Chest x-ray reported to be unremarkable. Overall, probably right heart failure related to untreated sleep apnea as well as obesity. This is probably compounded by smoking and polysubstance abuse. Empiric diuretics. Will review the echocardiogram. Procedures Date of Service Date of Service: 06/11/22
--- NOTE | 2022-06-11 11:05 | PC.NURSE ---
1000-pt assessed. pt states, he is leaving the hospital if he does not get a room upstairs by noon. Cardiology at bedside and spoke with pt. pt denies pain at this time, PADILLA and ambulates with cane independently. pt denies numbness or tingling in any extremities. expiratory wheezing noted bilaterally A&P throughout. pt on 2L NC. denies SOB at this time. +2 edema noted to ashley feet. 1045-moved pt from POD 2 to POD 7 due to vent above the bed blowing air on pt.
--- NOTE | 2022-06-11 11:59 | MHC.RECOVRN ---
T/W met w/ pt, pt alert, sitting up, watching t.v. Pt reports last Methadone dose yesterday at 35mg. Pt reports gets take homes from [facility], [address] [place] [address]. Pt reports has been on MTD for years, interested in stopping methadone. Pt reports heroin use daily, 3 bags IN, for a long time. Pt reports no MARJ/CRACK use, no ETOH use. Pt reports history of detox treatment in the past for opiates. Pt states has Narcan, knows how to use it. Pt stats does not want to take Methadone dose today, pt states wants to stop MTD, as pt states is too old to be doing methadone and heroin. T/W reviewed withdrawal symptoms, importance of tappering methadone to avoid withdrawal. Pt verbalized understanding, states x's 2, does not want Methadone dose today. Pt agreed to meet w/ this song writer tomorrow related to methadone dose. Pt encouraged to tell RN if pt is feeling withdrawal. Pt verbalized understanding. Methadone verification completed, pt on 06/06/22 received 6 take home doses at 35mg each from [facility], [address] [place] [address].
--- NOTE | 2022-06-11 12:17 | HE.PHANOTE ---
Methadone Verification Pharmacy has received the methadone verification from Ronda Hollingsworth. Patient last received 6 take home bottles of methadone 35 mg on 06/06/2022 from [facility] on [facility]. Confirmed with MIR Wmoack at clinic. Rosmery Eubanks, BereniceD
[2022-06-11 13:16] LABS: Glucose, Whole Blood 217 mg/dL (60-115)
[2022-06-11] MEDS: Fluticasone Propionate Nasal 16 GM SPRAY 2 SPRAY NOSTRIL-B (14:06)
[2022-06-11] MEDS: Fluticasone/Vilanterol 100/25 BLST.W.DEV 1 PUFF INHALE (15:11)
--- NOTE | 2022-06-11 16:57 | PM.EVENT ---
Event Note Date of Service: 06/11/22 Event Note: Addiction Consult: Please see Recovery [facility] RN note. Patient declining methadone. Dose verified by RN and faxed to pharmacy. Order placed should he change his mind
[2022-06-11 17:11] LABS: Glucose, Whole Blood 388 mg/dL (60-115)
--- NOTE | 2022-06-11 18:33 | PC.NURSE ---
183-report called to DELMIS Encarnacion on C
[2022-06-11 19:57] LABS: Glucose, Whole Blood 396 mg/dL (60-115)
[2022-06-11 20:21] LABS: Glucose, Whole Blood 436 mg/dL (60-115)
[2022-06-11] MEDS: Insulin Glargine,Hum.rec.anlog 100 UNIT/ML 10 ML VIAL 20 UNIT SUBCUT (20:33)
[2022-06-11] MEDS: Enoxaparin Sodium 40 MG/0.4 ML SYRINGE SUBCUT (20:33)
[2022-06-11] MEDS: Atorvastatin Calcium 80 MG TABLET PO (20:34)
[2022-06-11] MEDS: traZODone HCL 100 MG TABLET PO (20:34)
[2022-06-11] MEDS: Melatonin 3 MG TABLET 9 MG PO (20:34)
[2022-06-11] MEDS: amLODIPine Besylate 10 MG TABLET PO (20:34)
[2022-06-11] MEDS: VerapamiL HCL SR 240 MG TABLET.ER PO (21:37)
[2022-06-11] MEDS: Insulin Regular, Human 100 UNIT/ML 3 ML VIAL IVPUSH (21:37)
[2022-06-11 22:13] LABS: Glucose, Whole Blood 348 mg/dL (60-115)
[2022-06-12] VITALS (11 sets, daily range): BP systolic 100–161; BP diastolic 53–73; PULSE 54–84; RESP 18–20; TEMP 36.1–36.7; O2SAT 91–99; BMI 54.2
[2022-06-12] MEDS: Omeprazole 20 MG CAPSULE.DR PO (05:27)
--- NOTE | 2022-06-12 06:54 | PC.NURSE ---
Patient had a critical glucose of 396 at 19:54. Dr. Stiles was notified and insulin lispro was administered per sliding scale and patient was ordered an additional 5 units of insulin regular. 30 mins laer glucose decreased to 348. Will continue to monitor.
[2022-06-12 07:50] LABS: Glucose, Whole Blood 218 mg/dL (60-115)
[2022-06-12] MEDS: Albuterol/Iprat 2.5/0.5MG 3 ML AMPUL.NEB INHALE ×4 (08:05→19:27)
[2022-06-12] MEDS: Insulin Lispro 100 UNIT/ML 3 ML VIAL SUBCUT ×4 (08:10→20:25)
[2022-06-12] MEDS: buPROPion HCl XL 300 MG TAB.ER.24H PO (08:11)
[2022-06-12] MEDS: Clopidogrel Bisulfate 75 MG TABLET PO (08:11)
[2022-06-12] MEDS: Cholecalciferol (Vitamin D3) 25 MCG TABLET PO (08:11)
[2022-06-12] MEDS: Calcium + Vitamin D 250 MG TABLET 500 MG PO ×2 (08:11→20:26)
[2022-06-12] MEDS: predniSONE 20 MG TABLET PO (08:11)
[2022-06-12] MEDS: 0.9 % Sodium Chloride Flush 3 ML SYRINGE IVFLUSH ×3 (08:12→20:32)
[2022-06-12] MEDS: Fluticasone Propionate Nasal 16 GM SPRAY 2 SPRAY NOSTRIL-B (08:12)
[2022-06-12] MEDS: Fluticasone/Vilanterol 100/25 BLST.W.DEV 1 PUFF INHALE (08:57)
[2022-06-12] MEDS: Spironolactone 25 MG TABLET PO ×2 (09:26→16:57)
[2022-06-12] MEDS: Losartan Potassium 50 MG TABLET 150 MG PO (09:26)
[2022-06-12] MEDS: Furosemide 40 MG/4 ML VIAL IVPUSH ×2 (09:26→20:25)
[2022-06-12] MEDS: carvediloL 25 MG TABLET PO ×2 (09:26→20:26)
--- NOTE | 2022-06-12 09:39 | P.PNCA_ITS ---
Subjective Subjective Date of Service: 06/12/22 Interval history: States that he is feeling better. However, still has leg swelling. Shortness of breath is okay. No chest pains or other complaints. Review of Systems Review of Systems Yes all other systems are reviewed and are negative Constitutional: Reports as per HPI Eyes: Reports as per HPI Reports as per HPI Cardiovascular: Reports as per HPI, Denies acrocyanosis, Denies cool extremities, Denies chest pain, Reports leg edema, Denies lightheadedness, Denies palpitations and Denies dyspnea Respiratory: Reports as per HPI, Reports no additional respiratory complaints a nd Denies dyspnea Gastrointestinal: Reports as per HPI and Reports no additional gastrointestinal complaints Genitourinary: Reports no additional male genitourinary complaints and Reports as per HPI Musculoskeletal: Reports no additional musculoskeletal complaints and Reports as per HPI Skin/Breast: Reports system reviewed and no additional complaints, except as docu Reports system reviewed and no additional complaints, except as documented and Reports as per HPI Psychiatric: Reports no additional psychiatric complaints and Reports as per HPI Endocrine: Reports no additional endocrine complaints, Reports as per HPI and Denies palpitations Hematologic/Lymphatic: Reports no additional hematologic/lymphatic complaints and Reports as per HPI Allergic/Immunologic: Reports no additional allergic/immunologic complaints and Reports as per HPI Physical Exam Vital Signs: Last Vital Signs Temp 97.8 F 06/12/22 07:10 Pulse 64 06/12/22 09:31 Resp 18 06/12/22 08:08 BP 106/62 06/12/22 09:31 Pulse Ox 97 06/12/22 07:10 O2 Del Method 06/12/22 07:10 O2 Flow Rate 3 06/12/22 07:10 BMI result Body Mass Index 54.2 Const General: comfortable and no acute distress Orientation/consciousness: patient oriented x3 HEENT Other: Unremarkable Head: Yes normal to inspection Neck Neck: Yes normal visual inspection Chest Chest palpation & inspection: normal inspection of the chest Resp Other: Scattered rhonchi Cardio Palpation: normal PMI Heart sounds: S1 normal heart sound present, S2 normal heart sound present, no gallops, no murmurs and no rubs GI Palpation (GI): Soft to palpation Back/Spine/Pelvis Other: unremarkable Skin General skin exam: no rashes or lesions noted Lesions: lesion noted (Right lower extremity, dressing over it.) Neuro General: patient oriented x3 Extrem General: Yes normal to inspection Right lower extremity: edema Details: pitting and 2+ Left lower extremity: edema Details: pitting and 2+ Psych Mental Status: mental status grossly normal Objective Labs and Meds Result diagrams: 06/10/22 12:16 06/10/22 12:16 Lab results: Laboratory Results - last 24 hr 06/11/22 06/11/22 06/11/22 13:05 16:58 19:54 POC Glucose 217 H 388 H* 396 H* 06/11/22 06/11/22 06/12/22 20:17 22:09 07:16 POC Glucose 436 H* 348 H 218 H Progress Note: A&P Assessment and plan (1) Acute on chronic diastolic (congestive) heart failure: Status: Acute (2) Acute on chronic right heart failure: Status: Acute (3) New onset right bundle branch block (RBBB): Status: Acute (4) Cocaine abuse: Status: Acute (5) Heroin abuse: Status: Acute Plan Labs positive for opiates, Ventolin screen, cocaine. Cardiac BNP is 147. Troponin slightly elevated. Chest x-ray reported to be unremarkable. Echocardiogram with preserved LVEF, severe left ventricular hypertrophy and moderate diastolic dysfunction and severe left atrial dilatation. Right ventricular size function was okay. Can treat for acute on chronic diastolic heart failure probably from hypertension obesity. Additional contributors include polysubstance abuse. Continue with IV diuretics. Input output chart does not seem to be accurate. Blood pressure is on the lower side and hence may have to hold blood pressure medications at least temporarily. Will follow closely. Discussed with Dr. Torres. Time Spent With Patient Time: Total time spent is greater than 50% in coordination of care (as documented) at patient's floor/unit and/or counseling patient: 35min. Progress Note: Quality Stroke Does the patient have a stroke diagnosis?: No Procedures Date of Service Date of Service: 06/12/22
[2022-06-12 11:18] LABS: Glucose, Whole Blood 282 mg/dL (60-115)
--- NOTE | 2022-06-12 12:01 | MHC.CLN ---
RECOMMEND 2200DM TO MEET ESTIMATED KCAL NEEDS DIET WILL PROMOTE SLOW WT LOSS IN ADDITION RECOMMEND 2GM NA DIET RESTRICTION R/T DX CHF AND +3 BLE EDEMA
--- NOTE | 2022-06-12 12:29 | HO.PM.IMPN ---
Subjective Subjective Date of Service: 06/12/22 Interval History: Seen in f/u for exacerbation of CHF Interval history: feels better less sob of breah, but legs are still very swollen Review of Systems no sob no fever swollen legs Physical Exam Vital Signs: Vital Signs: Last Vital Signs Temp 97.6 F 06/12/22 11:08 Pulse 60 06/12/22 11:14 Resp 18 06/12/22 11:14 BP 104/56 L 06/12/22 11:08 Pulse Ox 95 06/12/22 11:08 O2 Del Method 06/12/22 11:08 O2 Flow Rate 3 06/12/22 07:10 BMI result Body Mass Index 54.2 Const: Other: General: AO X 3, no acute distress Resp: CTA bilateral CVS: S1,S2,RRR, 3+ pitting edema GI: +BS, NT, no distention Skin: No rash, right leg wound Neuro: motor grossly intact Psych: appropriate affect Objective Data Active Medications Acetaminophen (Acetaminophen 325 Mg Tablet) 650 mg PO Q8H PRN PRN Reason: Pain (Scale Score 1-3) Albuterol/Ipratropium (Albuterol/Iprat 2.5/0.5mg 3 Ml Ampul.Neb) 3 ml INHALE RQ4H [facility] Last Admin: 06/11/22 15:10 Dose: 3 ml Documented By: FIFI Amlodipine Besylate (Amlodipine Besylate 10 Mg Tablet) 10 mg PO BEDTIME [facility]; Protocol Last Admin: 06/11/22 20:34 Dose: 10 mg Documented By: CHRISTINE Atorvastatin Calcium (Atorvastatin Calcium 80 Mg Tablet) 80 mg PO BEDTIME [facility] Last Admin: 06/11/22 20:34 Dose: 80 mg Documented By: CHRISTINE Bupropion HCl (Bupropion Hcl Xl 300 Mg Tab.Er.24h) 300 mg PO DAILY [facility] Last Admin: 06/12/22 08:11 Dose: 300 mg Documented By: FIDEL Calcium Carbonate/Cholecalciferol (Calcium + Vitamin D 250 Mg Tablet) 500 mg PO BID [facility] Last Admin: 06/12/22 08:11 Dose: 500 mg Documented By: FIDEL Carvedilol (Carvedilol 25 Mg Tablet) 25 mg PO BID [facility]; Protocol Last Admin: 06/12/22 09:26 Dose: 25 mg Documented By: FIDEL Clonidine HCl (Clonidine Hcl 0.1 Mg Tablet) 0.1 mg PO DAILY [facility]; Protocol Last Admin: 06/12/22 09:08 Dose: Not Given Documented By: FIDEL Non-Admin Reason: Physician Held Med Clopidogrel Bisulfate (Clopidogrel Bisulfate 75 Mg Tablet) 75 mg PO DAILY [facility] Last Admin: 06/12/22 08:11 Dose: 75 mg Documented By: FIDEL Dextrose (Dextrose 50 % 25 Gm/50 Ml Syringe) 25 gm IVPUSH Q15M PRN; Protocol PRN Reason: per Hypoglycemia Standing Ord. Enoxaparin Sodium (Enoxaparin Sodium 40 Mg/0.4 Ml Syringe) 40 mg SUBCUT Q24H [facility] Last Admin: 06/11/22 20:33 Dose: 40 mg Documented By: CHRISTINE Fluticasone Propionate (Fluticasone Propionate Nasal 16 Gm [place]) 2 spray NOSTRIL-B DAILY [facility] Last Admin: 06/12/22 08:12 Dose: 2 spray Documented By: FIDEL Fluticasone/Vilanterol (Fluticasone/Vilanterol 100/25 Blst.W.Dev) 1 puff INHALE RDAILY [facility] Last Admin: 06/12/22 08:57 Dose: 1 puff Documented By: KEEGAN Furosemide (Furosemide 40 Mg/4 Ml Vial) 40 mg IVPUSH BID [facility]; Protocol Last Admin: 06/12/22 09:26 Dose: 40 mg Documented By: FIDEL Glucose (Glucose Gel 15 Gm Gel..Gram.) 15 gm PO Q15M PRN; Protocol PRN Reason: per Hypoglycemia Standing Ord. Hydralazine HCl (Hydralazine Hcl 50 Mg Tablet) 100 mg PO TID [facility]; Protocol Last Admin: 06/12/22 09:08 Dose: Not Given Documented By: FIDEL Non-Admin Reason: Physician Held Med Insulin Glargine (Insulin Glargine,Hum.Rec.Anlog 100 Unit/Ml 10 Ml Vial) 20 unit SUBCUT BEDTIME [facility] Last Admin: 06/11/22 20:33 Dose: 20 unit Documented By: CHRISTINE Insulin Human Lispro (Insulin Lispro 100 Unit/Ml 3 Ml Vial) 0 unit SUBCUT QIDACHS [facility]; Protocol Last Admin: 06/12/22 11:44 Dose: 6 unit Documented By: FIDEL Isosorbide Mononitrate (Isosorbide Mononitrate 30 Mg Tab.Er.24h) 90 mg PO DAILY [facility]; Protocol Last Admin: 06/12/22 09:08 Dose: Not Given Documented By: FIDEL Non-Admin Reason: Physician Held Med Losartan Potassium (Losartan Potassium 50 Mg Tablet) 150 mg PO DAILY [facility]; Protocol Last Admin: 06/12/22 09:26 Dose: 150 mg Documented By: FIDEL Melatonin (Melatonin 3 Mg Tablet) 9 mg PO BEDTIME [facility] Last Admin: 06/11/22 20:34 Dose: 9 mg Documented By: CHRISTINE Methadone HCl (Methadone Hcl 20 Mg/2 Ml Oral.Conc) 35 mg PO DAILY [facility] Last Admin: 06/12/22 09:57 Dose: Not Given Documented By: FIDEL Non-Admin Reason: Patient Refused Nitroglycerin (Nitroglycerin 0.4 Mg Tab.Subl) 0.4 mg SUBLINGUAL Q5M PRN PRN Reason: Chest Pain Omeprazole (Omeprazole 20 Mg Capsule.Dr) 20 mg PO DAILY@0630 [facility] Last Admin: 06/12/22 05:27 Dose: 20 mg Documented By: CHRISTINE Pharmacy Consult (Consult Rx Perform Med Rec) 1 each MISCELLANE ONCE PRN PRN Reason: Consult order Prednisone (Prednisone 20 Mg Tablet) 20 mg PO DAILY [facility] Last Admin: 06/12/22 08:11 Dose: 20 mg Documented By: FIDEL Senna/Docusate Sodium (Sennosides/Docusate Sodium Tablet) 1 tab PO BID PRN PRN Reason: Constipation Sodium Chloride (0.9 % Sodium Chloride Flush 3 Ml Syringe) 3 ml IVFLUSH QSHIFT [facility] Last Admin: 06/12/22 08:12 Dose: 3 ml Documented By: FIDEL Spironolactone (Spironolactone 25 Mg Tablet) 25 mg PO BID@0900,1700 [facility]; Protocol Last Admin: 06/12/22 09:26 Dose: 25 mg Documented By: FIDEL Tiotropium [place] (Tiotropium [place] 18 Mcg Cap.W.Dev) 1 puff INHALE RDAILY [facility] Last Admin: 06/12/22 08:57 Dose: 1 puff Documented By: KEEGAN Trazodone HCl (Trazodone Hcl 100 Mg Tablet) 100 mg PO BEDTIME [facility] Last Admin: 06/11/22 20:34 Dose: 100 mg Documented By: CHRISTINE Verapamil HCl (Verapamil Hcl Sr 240 Mg Tablet.Er) 240 mg PO BEDTIME [facility]; Protocol Last Admin: 06/11/22 21:37 Dose: 240 mg Documented By: CHRISTINE Vitamin D (Cholecalciferol (Vitamin D3) 25 Mcg Tablet) 25 mcg PO DAILY [facility] Last Admin: 06/12/22 08:11 Dose: 25 mcg Documented By: DOBROJacqui Labs CBC & Chem 7: 06/10/22 12:16 06/10/22 12:16 Labs: Laboratory Results - last 24 hr 06/11/22 06/11/22 06/11/22 13:05 16:58 19:54 POC Glucose 217 H 388 H* 396 H* 06/11/22 06/11/22 06/12/22 20:17 22:09 07:16 POC Glucose 436 H* 348 H 218 H 06/12/22 11:12 POC Glucose 282 H Microbiology Microbiology Results: Microbiology 06/10/22 16:01 Blood Culture - Preliminary Blood - Venous No growth after 24 hours. 06/10/22 14:35 Blood Culture - Preliminary Blood - Venous No growth after 24 hours. Assessment and Plan (1) CHF exacerbation: Status: Acute (2) New onset right bundle branch block (RBBB): Status: Acute Plan 61-year-old man admitted with right lower extremity edema and some shortness of breath with ambulation Heart failure with preserved ejection fraction with acute exacerbation -IV Lasix 40 mg b.i.d. -Monitor I/O, weight and salt -Last echocardiogram with EF of 50-55% with grade 2 diastolic dysfunction. -Cardiology consultation -Monitor weight, I/O, and salt intake -Continue carvedilol, spironolactone- -weeping RLE, no cellulitis noted, local wound care--ID if the appearance of infection New RBBB--cardiology to advise on next step, no acute ischemic finding COPD-seems mild exacerbation -Bronchodilators by Neb, Prednisone at 20 daily Hypertension-controlled--BP on lower side so hold hydralazone, clonidine, mdure Continue losartan, isosorbide, hydralazine, verapamil, clonidine Mental health Continue home medications Substance abuse Every day heroine use -Methadone, addiction med consult GERD Continue PPI right leg wound--local care Morbid obesity::? Advised to lose weight as making his health issues worse DVT prophylaxis Lovenox inpatient need: Heart failure needing IV diuretics and monitoring for clinical response and electrolytes, renal function Quality Stroke Does the patient have a stroke diagnosis?: No VTE Prior VTE?: No VTE Risk Level:: Medical - moderate - high VTE Device Contraindication: N/A - Device Ordered VTE Drug Contraindication: N/A - Med Ordered
--- NOTE | 2022-06-12 13:13 | MHC.RECOVRN ---
This marketing underwriter met w/ pt, pt laying in bed sleeping, awoke to verbal stimuli. Pt states does not want Methadone, pt reports no withdrawal symptoms. Pt states I want to stop Methadone. Pt reminded that if starts to feel sick, let nurse know and this marketing underwriter can return and get Methadone started. Pt verbalized understanding. Provider aware.
[2022-06-12 16:06] LABS: Glucose, Whole Blood 253 mg/dL (60-115)
--- NOTE | 2022-06-12 18:11 | PC.NURSE ---
Right lower leg dressing changed, weeping blisters covered with abdominal pad and melissa bandage, patient tolerated procedure well.
[2022-06-12 19:40] LABS: Glucose, Whole Blood 256 mg/dL (60-115)
[2022-06-12] MEDS: Insulin Glargine,Hum.rec.anlog 100 UNIT/ML 10 ML VIAL 20 UNIT SUBCUT (20:25)
[2022-06-12] MEDS: amLODIPine Besylate 10 MG TABLET PO (20:26)
[2022-06-12] MEDS: Melatonin 3 MG TABLET 9 MG PO (20:26)
[2022-06-12] MEDS: Atorvastatin Calcium 80 MG TABLET PO (20:26)
[2022-06-12] MEDS: hydrALAZINE HCl 50 MG TABLET 100 MG PO (20:26)
[2022-06-12] MEDS: traZODone HCL 100 MG TABLET PO (20:26)
[2022-06-12] MEDS: Enoxaparin Sodium 40 MG/0.4 ML SYRINGE SUBCUT (20:26)
[2022-06-12] MEDS: VerapamiL HCL SR 240 MG TABLET.ER PO (20:26)
[2022-06-13] VITALS (9 sets, daily range): BP systolic 111–175; BP diastolic 56–85; PULSE 57–70; RESP 18–20; TEMP 36.2–36.6; O2SAT 92–96; BMI 54.4
[2022-06-13] MEDS: Omeprazole 20 MG CAPSULE.DR PO (06:10)
[2022-06-13 07:30] LABS: Glucose, Whole Blood 205 mg/dL (60-115)
[2022-06-13] MEDS: Fluticasone/Vilanterol 100/25 BLST.W.DEV 1 PUFF INHALE (07:35)
[2022-06-13] MEDS: Albuterol/Iprat 2.5/0.5MG 3 ML AMPUL.NEB INHALE ×3 (07:35→19:40)
[2022-06-13] MEDS: Insulin Lispro 100 UNIT/ML 3 ML VIAL SUBCUT ×4 (08:07→20:52)
[2022-06-13] MEDS: 0.9 % Sodium Chloride Flush 3 ML SYRINGE IVFLUSH (08:08)
[2022-06-13] MEDS: Isosorbide Mononitrate 30 MG TAB.ER.24H 90 MG PO (08:08)
[2022-06-13] MEDS: buPROPion HCl XL 300 MG TAB.ER.24H PO (08:08)
[2022-06-13] MEDS: carvediloL 25 MG TABLET PO ×2 (08:08→20:51)
[2022-06-13] MEDS: cloNIDine HCL 0.1 MG TABLET PO (08:08)
[2022-06-13] MEDS: Furosemide 40 MG/4 ML VIAL IVPUSH (08:08)
[2022-06-13] MEDS: Clopidogrel Bisulfate 75 MG TABLET PO (08:08)
[2022-06-13] MEDS: Losartan Potassium 50 MG TABLET 150 MG PO (08:09)
[2022-06-13] MEDS: Spironolactone 25 MG TABLET PO ×2 (08:09→17:34)
[2022-06-13] MEDS: Cholecalciferol (Vitamin D3) 25 MCG TABLET PO (08:09)
[2022-06-13] MEDS: Calcium + Vitamin D 250 MG TABLET 500 MG PO ×2 (08:09→20:51)
[2022-06-13] MEDS: hydrALAZINE HCl 50 MG TABLET 100 MG PO ×2 (08:09→20:51)
[2022-06-13] MEDS: predniSONE 20 MG TABLET PO (08:09)
--- NOTE | 2022-06-13 10:37 | P.PNCA_ITS ---
Subjective Subjective Date of Service: 06/13/22 Interval history: He still has seems to have a lot of leg swelling. Breathing seems to be okay. He states he is feeling ' so-so'. Review of Systems Review of Systems Yes all other systems are reviewed and are negative Constitutional: Reports as per HPI Eyes: Reports as per HPI Reports as per HPI Cardiovascular: Reports as per HPI, Denies acrocyanosis, Denies cool extremities, Denies chest pain, Reports leg edema, Denies lightheadedness, Denies palpitations and Denies dyspnea Respiratory: Reports as per HPI, Reports no additional respiratory complaints and Denies dyspnea Gastrointestinal: Reports as per HPI and Reports no additional gastrointestinal complaints Genitourinary: Reports no additional male genitourinary complaints and Reports as per HPI Musculoskeletal: Reports no additional musculoskeletal complaints and Reports as per HPI Skin/Breast: Reports system reviewed and no additional complaints, except as docu Reports system reviewed and no additional complaints, except as documented and Reports as per HPI Psychiatric: Reports no additional psychiatric complaints and Reports as per HPI Endocrine: Reports no additional endocrine complaints, Reports as per HPI and Denies palpitations Hematologic/Lymphatic: Reports no additional hematologic/lymphatic complaints and Reports as per HPI Allergic/Immunologic: Reports no additional allergic/immunologic complaints and Reports as per HPI Physical Exam Vital Signs: Last Vital Signs Temp 97.8 F 06/13/22 07:16 Pulse 63 06/13/22 07:38 Resp 18 06/13/22 07:38 BP 175/85 H 06/13/22 07:16 Pulse Ox 94 06/13/22 07:16 O2 Del Method 06/13/22 07:16 O2 Flow Rate 2 06/13/22 03:11 BMI result Body Mass Index 54.4 Const General: comfortable and no acute distress Orientation/consciousness: patient oriented x3 HEENT Other: Unremarkable Head: Yes normal to inspection Neck Neck: Yes normal visual inspection Chest Chest palpation & inspection: normal inspection of the chest Resp Other: Scattered rhonchi Cardio Palpation: normal PMI Heart sounds: S1 normal heart sound present, S2 normal heart sound present, no gallops, no murmurs and no rubs GI Palpation (GI): Soft to palpation Back/Spine/Pelvis Other: unremarkable Skin General skin exam: no rashes or lesions noted Lesions: lesion noted (Right lower extremity, dressing over it.) Neuro General: patient oriented x3 Extrem General: Yes normal to inspection Right lower extremity: edema Details: pitting and 2+ Left lower extremity: edema Details: pitting and 2+ Psych Mental Status: mental status grossly normal Objective Labs and Meds Result diagrams: 06/10/22 12:16 06/10/22 12:16 Lab results: Laboratory Results - last 24 hr 06/12/22 06/12/22 06/12/22 11:12 15:58 19:36 POC Glucose 282 H 253 H 256 H 06/13/22 07:21 POC Glucose 205 H Progress Note: A&P Assessment and plan (1) Acute on chronic diastolic (congestive) heart failure: Status: Acute (2) Acute on chronic right heart failure: Status: Acute (3) New onset right bundle branch block (RBBB): Status: Acute (4) Cocaine abuse: Status: Acute (5) Heroin abuse: Status: Acute Plan He continues to be having significant volume overload. The current diuretic regimen isn't really helping. Hence we will start him on Lasix drip. Additionally, we can also give him some metolazone 5 mg. Hopefully this will help with the volume overload. 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 Not sure if he will change or not. In any case, we will at least attempt. Discussed with Dr. Torres. Time Spent With Patient Time: Total time spent is greater than 50% in coordination of care (as documented) at patient's floor/unit and/or counseling patient: 35min. Progress Note: Quality Stroke Does the patient have a stroke diagnosis?: No Procedures Date of Service Date of Service: 06/13/22
[2022-06-13] MEDS: metOLazone 5 MG TABLET PO (10:57)
[2022-06-13] MEDS: Furosemide 200 MG in 0.9 % Sodium Chloride 80 ML IVCONT (10:58)
[2022-06-13 11:10] LABS: Glucose, Whole Blood 279 mg/dL (60-115)
--- NOTE | 2022-06-13 12:35 | P.PNIM_ITS ---
Subjective Subjective Date of Service: 06/13/22 Interval History: Seen in f/u for exacerbation of CHF Interval history:No sob of breath, but legs are still very swollen, +4L Review of Systems no sob no fever swollen legs Physical Exam Vital Signs: Vital Signs: Last Vital Signs Temp 97.2 F 06/13/22 11:03 Pulse 60 06/13/22 11:03 Resp 20 06/13/22 11:03 BP 136/64 06/13/22 11:03 Pulse Ox 92 06/13/22 11:03 O2 Del Method 06/13/22 11:03 O2 Flow Rate 2 06/13/22 03:11 BMI result Body Mass Index 54.4 Const: Other: General: AO X 3, no acute distress Resp: CTA bilateral CVS: S1,S2,RRR, 3+ pitting edema GI: +BS, NT, no distention Skin: No rash, right leg wound Neuro: motor grossly intact Psych: appropriate affect Objective Data Active Medications Acetaminophen (Acetaminophen 325 Mg Tablet) 650 mg PO Q8H PRN PRN Reason: Pain (Scale Score 1-3) Albuterol/Ipratropium (Albuterol/Iprat 2.5/0.5mg 3 Ml Ampul.Neb) 3 ml INHALE RQ4H [facility] Last Admin: 06/13/22 11:07 Dose: Not Given Documented By: KEEGAN Non-Admin Reason: Patient Asleep Amlodipine Besylate (Amlodipine Besylate 10 Mg Tablet) 10 mg PO BEDTIME [facility]; Protocol Last Admin: 06/12/22 20:26 Dose: 10 mg Documented By: ABIEL Atorvastatin Calcium (Atorvastatin Calcium 80 Mg Tablet) 80 mg PO BEDTIME [facility] Last Admin: 06/12/22 20:26 Dose: 80 mg Documented By: ABIEL Bupropion HCl (Bupropion Hcl Xl 300 Mg Tab.Er.24h) 300 mg PO DAILY [facility] Last Admin: 06/13/22 08:08 Dose: 300 mg Documented By: FIDEL Calcium Carbonate/Cholecalciferol (Calcium + Vitamin D 250 Mg Tablet) 500 mg PO BID [facility] Last Admin: 06/13/22 08:09 Dose: 500 mg Documented By: FIDEL Carvedilol (Carvedilol 25 Mg Tablet) 25 mg PO BID [facility]; Protocol Last Admin: 06/13/22 08:08 Dose: 25 mg Documented By: FIDEL Clonidine HCl (Clonidine Hcl 0.1 Mg Tablet) 0.1 mg PO DAILY [facility]; Protocol Last Admin: 06/13/22 08:08 Dose: 0.1 mg Documented By: FIDEL Clopidogrel Bisulfate (Clopidogrel Bisulfate 75 Mg Tablet) 75 mg PO DAILY [facility] Last Admin: 06/13/22 08:08 Dose: 75 mg Documented By: FIDEL Dextrose (Dextrose 50 % 25 Gm/50 Ml Syringe) 25 gm IVPUSH Q15M PRN; Protocol PRN Reason: per Hypoglycemia Standing Ord. Enoxaparin Sodium (Enoxaparin Sodium 40 Mg/0.4 Ml Syringe) 40 mg SUBCUT Q24H [facility] Last Admin: 06/12/22 20:26 Dose: 40 mg Documented By: ABIEL Fluticasone Propionate (Fluticasone Propionate Nasal 16 Gm [place]) 2 spray NOSTRIL-B DAILY [facility] Last Admin: 06/13/22 09:13 Dose: Not Given Documented By: FIDEL Non-Admin Reason: Patient Refused Fluticasone/Vilanterol (Fluticasone/Vilanterol 100/25 Blst.W.Dev) 1 puff INHALE RDAILY [facility] Last Admin: 06/13/22 07:35 Dose: 1 puff Documented By: KEEGAN Glucose (Glucose Gel 15 Gm Gel..Gram.) 15 gm PO Q15M PRN; Protocol PRN Reason: per Hypoglycemia Standing Ord. Hydralazine HCl (Hydralazine Hcl 50 Mg Tablet) 100 mg PO TID [facility]; Protocol Last Admin: 06/13/22 08:09 Dose: 100 mg Documented By: FIDEL Furosemide 200 mg/ Sodium (Chloride) 100 mls @ 2.5 mls/hr IVCONT .Q24H [facility] Last Admin: 06/13/22 10:58 Dose: 5 mg/hr, 2.5 mls/hr Documented By: FIEDL Insulin Glargine (Insulin Glargine,Hum.Rec.Anlog 100 Unit/Ml 10 Ml Vial) 20 unit SUBCUT BEDTIME [facility] Last Admin: 06/12/22 20:25 Dose: 20 unit Documented By: ABIEL Comments: Insulin Human Lispro (Insulin Lispro 100 Unit/Ml 3 Ml Vial) 0 unit SUBCUT QIDACHS [facility]; Protocol Last Admin: 06/13/22 11:28 Dose: 6 unit Documented By: FIDEL Isosorbide Mononitrate (Isosorbide Mononitrate 30 Mg Tab.Er.24h) 90 mg PO DAILY [facility]; Protocol Last Admin: 06/13/22 08:08 Dose: 90 mg Documented By: FIDEL Losartan Potassium (Losartan Potassium 50 Mg Tablet) 150 mg PO DAILY [facility]; Protocol Last Admin: 06/13/22 08:09 Dose: 150 mg Documented By: FIDEL Melatonin (Melatonin 3 Mg Tablet) 9 mg PO BEDTIME [facility] Last Admin: 06/12/22 20:26 Dose: 9 mg Documented By: ABIEL Methadone HCl (Methadone Hcl 20 Mg/2 Ml Oral.Conc) 35 mg PO DAILY [facility] Last Admin: 06/13/22 09:13 Dose: Not Given Documented By: FIDEL Non-Admin Reason: Patient Refused Nitroglycerin (Nitroglycerin 0.4 Mg Tab.Subl) 0.4 mg SUBLINGUAL Q5M PRN PRN Reason: Chest Pain Omeprazole (Omeprazole 20 Mg Capsule.Dr) 20 mg PO DAILY@0630 [facility] Last Admin: 06/13/22 06:10 Dose: 20 mg Documented By: ABIEL Pharmacy Consult (Consult Rx Perform Med Rec) 1 each MISCELLANE ONCE PRN PRN Reason: Consult order Prednisone (Prednisone 20 Mg Tablet) 20 mg PO DAILY [facility] Last Admin: 06/13/22 08:09 Dose: 20 mg Documented By: FIDEL Senna/Docusate Sodium (Sennosides/Docusate Sodium Tablet) 1 tab PO BID PRN PRN Reason: Constipation Sodium Chloride (0.9 % Sodium Chloride Flush 3 Ml Syringe) 3 ml IVFLUSH QSHIFT [facility] Last Admin: 06/13/22 08:08 Dose: 3 ml Documented By: FIDEL Spironolactone (Spironolactone 25 Mg Tablet) 25 mg PO BID@0900,1700 [facility]; Protocol Last Admin: 06/13/22 08:09 Dose: 25 mg Documented By: FIDEL Tiotropium [place] (Tiotropium [place] 18 Mcg Cap.W.Dev) 1 puff INHALE RDAILY [facility] Last Admin: 06/13/22 07:35 Dose: 1 puff Documented By: KEEGAN Trazodone HCl (Trazodone Hcl 100 Mg Tablet) 100 mg PO BEDTIME [facility] Last Admin: 06/12/22 20:26 Dose: 100 mg Documented By: ABIEL Verapamil HCl (Verapamil Hcl Sr 240 Mg Tablet.Er) 240 mg PO BEDTIME [facility]; Protocol Last Admin: 06/12/22 20:26 Dose: 240 mg Documented By: ABIEL Vitamin D (Cholecalciferol (Vitamin D3) 25 Mcg Tablet) 25 mcg PO DAILY [facility] Last Admin: 06/13/22 08:09 Dose: 25 mcg Documented By: FIDEL Labs CBC & Chem 7: 06/10/22 12:16 06/10/22 12:16 Labs: Laboratory Results - last 24 hr 06/12/22 06/12/22 06/13/22 15:58 19:36 07:21 POC Glucose 253 H 256 H 205 H 06/13/22 11:06 POC Glucose 279 H Microbiology Microbiology Results: Microbiology 06/10/22 16:01 Blood Culture - Preliminary Blood - Venous No growth after 48 hours. 06/10/22 14:35 Blood Culture - Preliminary Blood - Venous No growth after 48 hours. Assessment and Plan (1) CHF exacerbation: Status: Acute (2) New onset right bundle branch block (RBBB): Status: Acute Plan 61-year-old man admitted with right lower extremity edema and some shortness of breath with ambulation Heart failure with preserved ejection fraction with acute exacerbation -+4L -IV Lasix 40 mg b.i.d to Lasix drip and 5 mg of metolazone today -Monitor I/O, weight and salt -Last echocardiogram with EF of 50-55% with grade 2 diastolic dysfunction. -Cardiology following -Monitor weight, I/O, and salt intake -Continue carvedilol, spironolactone- New RBBB--cardiology to advise on next step, no acute ischemic finding COPD-seems mild exacerbation -Bronchodilators by Neb, Prednisone at 20 daily Hypertension-controlled--BP on lower side so hold hydralazone, clonidine, mdure Continue losartan, isosorbide, hydralazine, verapamil, clonidine Mental health Continue home medications Substance abuse Every day heroine use -Methadone, addiction med consult GERD Continue PPI right leg wound--local care Morbid obesity::? Advised to lose weight as making his health issues worse DVT prophylaxis Lovenox inpatient need: Heart failure needing IV diuretics and monitoring for clinical response and electrolytes, renal function Quality Stroke Does the patient have a stroke diagnosis?: No VTE Prior VTE?: No VTE Risk Level:: Medical - moderate - high VTE Device Contraindication: N/A - Device Ordered VTE Drug Contraindication: N/A - Med Ordered
[2022-06-13 16:11] LABS: Glucose, Whole Blood 276 mg/dL (60-115)
[2022-06-13] MEDS: Sennosides/Docusate Sodium TABLET 1 TAB PO (18:17)
[2022-06-13 20:15] LABS: Glucose, Whole Blood 418 mg/dL (60-115)
[2022-06-13] MEDS: VerapamiL HCL SR 240 MG TABLET.ER PO (20:51)
[2022-06-13] MEDS: traZODone HCL 100 MG TABLET PO (20:51)
[2022-06-13] MEDS: Melatonin 3 MG TABLET 9 MG PO (20:51)
[2022-06-13] MEDS: Atorvastatin Calcium 80 MG TABLET PO (20:52)
[2022-06-13] MEDS: Insulin Regular, Human 100 UNIT/ML 3 ML VIAL IVPUSH (20:52)
[2022-06-13] MEDS: Insulin Glargine,Hum.rec.anlog 100 UNIT/ML 10 ML VIAL 20 UNIT SUBCUT (20:52)
[2022-06-13] MEDS: Enoxaparin Sodium 40 MG/0.4 ML SYRINGE SUBCUT (20:52)
[2022-06-13] MEDS: amLODIPine Besylate 10 MG TABLET PO (20:54)
[2022-06-14] VITALS (9 sets, daily range): BP systolic 92–113; BP diastolic 48–65; PULSE 53–116; RESP 16–20; TEMP 36.3–37.1; O2SAT 91–98; BMI 53.5
[2022-06-14] MEDS: Omeprazole 20 MG CAPSULE.DR PO (05:44)
[2022-06-14 07:19] LABS: Glucose, Whole Blood 138 mg/dL (60-115)
[2022-06-14] MEDS: Fluticasone/Vilanterol 100/25 BLST.W.DEV 1 PUFF INHALE (07:53)
[2022-06-14] MEDS: Albuterol/Iprat 2.5/0.5MG 3 ML AMPUL.NEB INHALE ×4 (07:53→19:12)
[2022-06-14] MEDS: hydrALAZINE HCl 50 MG TABLET 100 MG PO ×2 (08:19→15:39)
[2022-06-14] MEDS: 0.9 % Sodium Chloride Flush 3 ML SYRINGE IVFLUSH ×2 (08:19→15:40)
[2022-06-14] MEDS: Losartan Potassium 50 MG TABLET 150 MG PO (08:20)
[2022-06-14] MEDS: buPROPion HCl XL 300 MG TAB.ER.24H PO (08:20)
[2022-06-14] MEDS: Calcium + Vitamin D 250 MG TABLET 500 MG PO ×2 (08:20→20:31)
[2022-06-14] MEDS: Cholecalciferol (Vitamin D3) 25 MCG TABLET PO (08:20)
[2022-06-14] MEDS: Spironolactone 25 MG TABLET PO ×2 (08:20→16:28)
[2022-06-14] MEDS: predniSONE 20 MG TABLET PO (08:20)
[2022-06-14] MEDS: cloNIDine HCL 0.1 MG TABLET PO (08:21)
[2022-06-14] MEDS: Isosorbide Mononitrate 30 MG TAB.ER.24H 90 MG PO (08:21)
[2022-06-14] MEDS: Clopidogrel Bisulfate 75 MG TABLET PO (08:21)
[2022-06-14] MEDS: carvediloL 25 MG TABLET PO (08:21)
[2022-06-14 08:36] LABS: Anion Gap 16 (12-20); Carbon Dioxide 37 mmol/L (22-29); Chloride 90 mmol/L (96-108); Creatinine Clr Calc Pharmacy 61.9; Estimated Glomerular Filt Rate 41; Glucose Random 183 mg/dL (60-115); Sodium 139 mmol/L (135-145)
[2022-06-14 08:46] LABS: Blood Urea Nitrogen 46 mg/dL (9-16); Calcium 9.7 mg/dL (8.4-10.2)
[2022-06-14] MEDS: Furosemide 200 MG in 0.9 % Sodium Chloride 80 ML IVCONT (09:18)
--- NOTE | 2022-06-14 09:38 | HO.PM.IMPN ---
Subjective Subjective Date of Service: 06/14/22 Interval History: Seen in f/u for exacerbation of CHF Interval history:No sob of breath, but legs are still very swollen, negative fluid Review of Systems no sob no fever swollen legs Physical Exam Vital Signs: Vital Signs: Last Vital Signs Temp 98.1 F 06/14/22 07:13 Pulse 62 06/14/22 07:57 Resp 18 06/14/22 07:57 BP 113/65 06/14/22 07:13 Pulse Ox 97 06/14/22 07:13 O2 Del Method 06/14/22 07:13 O2 Flow Rate 3 06/14/22 07:13 FiO2 97 06/13/22 19:18 BMI result Body Mass Index 53.5 Const: Other: General: AO X 3, no acute distress Resp: CTA bilateral CVS: S1,S2,RRR, 3+ pitting edema GI: +BS, NT, no distention Skin: No rash, right leg wound Neuro: motor grossly intact Psych: appropriate affect Objective Data Active Medications Acetaminophen (Acetaminophen 325 Mg Tablet) 650 mg PO Q8H PRN PRN Reason: Pain (Scale Score 1-3) Albuterol/Ipratropium (Albuterol/Iprat 2.5/0.5mg 3 Ml Ampul.Neb) 3 ml INHALE RQ4H [facility] Last Admin: 06/14/22 07:53 Dose: 3 ml Documented By: AMANDEEP Amlodipine Besylate (Amlodipine Besylate 10 Mg Tablet) 10 mg PO BEDTIME [facility]; Protocol Last Admin: 06/13/22 20:54 Dose: 10 mg Documented By: MEI Atorvastatin Calcium (Atorvastatin Calcium 80 Mg Tablet) 80 mg PO BEDTIME [facility] Last Admin: 06/13/22 20:52 Dose: 80 mg Documented By: MEI Bupropion HCl (Bupropion Hcl Xl 300 Mg Tab.Er.24h) 300 mg PO DAILY [facility] Last Admin: 06/14/22 08:20 Dose: 300 mg Documented By: TATY Calcium Carbonate/Cholecalciferol (Calcium + Vitamin D 250 Mg Tablet) 500 mg PO BID [facility] Last Admin: 06/14/22 08:20 Dose: 500 mg Documented By: TATY Carvedilol (Carvedilol 25 Mg Tablet) 25 mg PO BID [facility]; Protocol Last Admin: 06/14/22 08:21 Dose: 25 mg Documented By: TATY Clonidine HCl (Clonidine Hcl 0.1 Mg Tablet) 0.1 mg PO DAILY [facility]; Protocol Last Admin: 06/14/22 08:21 Dose: 0.1 mg Documented By: TATY Clopidogrel Bisulfate (Clopidogrel Bisulfate 75 Mg Tablet) 75 mg PO DAILY [facility] Last Admin: 06/14/22 08:21 Dose: 75 mg Documented By: TATY Dextrose (Dextrose 50 % 25 Gm/50 Ml Syringe) 25 gm IVPUSH Q15M PRN; Protocol PRN Reason: per Hypoglycemia Standing Ord. Enoxaparin Sodium (Enoxaparin Sodium 40 Mg/0.4 Ml Syringe) 40 mg SUBCUT Q24H [facility] Last Admin: 06/13/22 20:52 Dose: 40 mg Documented By: MEI Fluticasone Propionate (Fluticasone Propionate Nasal 16 Gm [place]) 2 spray NOSTRIL-B DAILY [facility] Last Admin: 06/14/22 08:22 Dose: Not Given Documented By: TATY Non-Admin Reason: Patient Refused Fluticasone/Vilanterol (Fluticasone/Vilanterol 100/25 Blst.W.Dev) 1 puff INHALE RDAILY [facility] Last Admin: 06/14/22 07:53 Dose: 1 puff Documented By: AMANDEEP Glucose (Glucose Gel 15 Gm Gel..Gram.) 15 gm PO Q15M PRN; Protocol PRN Reason: per Hypoglycemia Standing Ord. Hydralazine HCl (Hydralazine Hcl 50 Mg Tablet) 100 mg PO TID [facility]; Protocol Last Admin: 06/14/22 08:19 Dose: 100 mg Documented By: TATY Furosemide 200 mg/ Sodium (Chloride) 100 mls @ 2.5 mls/hr IVCONT .Q24H [facility] Last Admin: 06/14/22 09:18 Dose: 5 mg/hr, 2.5 mls/hr Documented By: TATY Insulin Glargine (Insulin Glargine,Hum.Rec.Anlog 100 Unit/Ml 10 Ml Vial) 20 unit SUBCUT BEDTIME [facility] Last Admin: 06/13/22 20:52 Dose: 20 unit Documented By: MEI Insulin Human Lispro (Insulin Lispro 100 Unit/Ml 3 Ml Vial) 0 unit SUBCUT QIDACHS [facility]; Protocol Last Admin: 06/14/22 07:24 Dose: Not Given Documented By: TATY Non-Admin Reason: No Insulin Coverage Isosorbide Mononitrate (Isosorbide Mononitrate 30 Mg Tab.Er.24h) 90 mg PO DAILY [facility]; Protocol Last Admin: 06/14/22 08:21 Dose: 90 mg Documented By: TATY Losartan Potassium (Losartan Potassium 50 Mg Tablet) 150 mg PO DAILY [facility]; Protocol Last Admin: 06/14/22 08:20 Dose: 150 mg Documented By: TATY Melatonin (Melatonin 3 Mg Tablet) 9 mg PO BEDTIME [facility] Last Admin: 06/13/22 20:51 Dose: 9 mg Documented By: MEI Methadone HCl (Methadone Hcl 20 Mg/2 Ml Oral.Conc) 35 mg PO DAILY [facility] Last Admin: 06/14/22 08:22 Dose: Not Given Documented By: TATY Non-Admin Reason: Patient Refused Nitroglycerin (Nitroglycerin 0.4 Mg Tab.Subl) 0.4 mg SUBLINGUAL Q5M PRN PRN Reason: Chest Pain Omeprazole (Omeprazole 20 Mg Capsule.Dr) 20 mg PO DAILY@0630 [facility] Last Admin: 06/14/22 05:44 Dose: 20 mg Documented By: HAN Pharmacy Consult (Consult Rx Perform Med Rec) 1 each MISCELLANE ONCE PRN PRN Reason: Consult order Prednisone (Prednisone 20 Mg Tablet) 20 mg PO DAILY [facility] Last Admin: 06/14/22 08:20 Dose: 20 mg Documented By: TATY Senna/Docusate Sodium (Sennosides/Docusate Sodium Tablet) 1 tab PO BID PRN PRN Reason: Constipation Last Admin: 06/13/22 18:17 Dose: 1 tab Documented By: DOBROB Sodium Chloride (0.9 % Sodium Chloride Flush 3 Ml Syringe) 3 ml IVFLUSH QSHIFT [facility] Last Admin: 06/14/22 08:19 Dose: 3 ml Documented By: TATY Spironolactone (Spironolactone 25 Mg Tablet) 25 mg PO BID@0900,1700 [facility]; Protocol Last Admin: 06/14/22 08:20 Dose: 25 mg Documented By: TATY Tiotropium [place] (Tiotropium [place] 18 Mcg Cap.W.Dev) 1 puff INHALE RDAILY [facility] Last Admin: 06/14/22 07:53 Dose: 1 puff Documented By: AMANDEEP Trazodone HCl (Trazodone Hcl 100 Mg Tablet) 100 mg PO BEDTIME [facility] Last Admin: 06/13/22 20:51 Dose: 100 mg Documented By: MEI Verapamil HCl (Verapamil Hcl Sr 240 Mg Tablet.Er) 240 mg PO BEDTIME [facility]; Protocol Last Admin: 06/13/22 20:51 Dose: 240 mg Documented By: MEI Vitamin D (Cholecalciferol (Vitamin D3) 25 Mcg Tablet) 25 mcg PO DAILY [facility] Last Admin: 06/14/22 08:20 Dose: 25 mcg Documented By: TATY Labs CBC & Chem 7: 06/10/22 12:16 06/14/22 08:00 Labs: Laboratory Results - last 24 hr 06/13/22 06/13/22 06/13/22 11:06 16:02 19:58 Anion Gap Estim Creat Clear Calc Estimated GFR POC Glucose 279 H 276 H 418 H* Random Glucose Calcium 06/14/22 06/14/22 07:12 08:00 Anion Gap 16 Estim Creat Clear Calc 61.9 Estimated GFR 41 POC Glucose 138 H Random Glucose 183 H Calcium 9.7 D Assessment and Plan (1) Acute on chronic diastolic (congestive) heart failure: Status: Acute Plan 61-year-old man admitted with right lower extremity edema and some shortness of breath with ambulation Heart failure with preserved ejection fraction with acute exacerbation +negative 2 liter -IV lasix drip and metolazone started yesterday -Monitor I/O, weight and salt -Last echocardiogram with EF of 50-55% with grade 2 diastolic dysfunction. -Cardiology following -Monitor weight, I/O, and salt intake -Continue carvedilol, spironolactone- -Creatine is going up so might hold lasix MELISSA--? cardio renal state, nephrology consult New RBBB--cardiology to advise on next step, no acute ischemic finding COPD-seems mild exacerbation -Bronchodilators by Neb, Prednisone at 20 daily Hypertension-controlled--BP on lower side so hold hydralazone, clonidine, mdure Continue losartan, isosorbide, hydralazine, verapamil, clonidine Mental health Continue home medications Substance abuse Every day heroine use -Methadone, addiction med consult GERD Continue PPI right leg wound--local care Morbid obesity::? Advised to lose weight as making his health issues worse DVT prophylaxis Lovenox inpatient need: Heart failure needing IV diuretics and monitoring for clinical response and electrolytes, renal function Quality Stroke Does the patient have a stroke diagnosis?: No VTE Prior VTE?: No VTE Risk Level:: Medical - moderate - high VTE Device Contraindication: N/A - Device Ordered VTE Drug Contraindication: N/A - Med Ordered
--- NOTE | 2022-06-14 10:01 | P.PNCA_ITS ---
Subjective Subjective Date of Service: 06/14/22 Interval history: Patient states he feels okay. Legs seem still swollen a. Input output data is nonacute and hence difficult to know really how much he is urinating. Fluid balance seems rather positive, possibly inaccurate. Weight seems a few lb less. However, even that is variable. Review of Systems Review of Systems Yes all other systems are reviewed and are negative Constitutional: Reports as per HPI Eyes: Reports as per HPI Reports as per HPI Cardiovascular: Reports as per HPI, Denies acrocyanosis, Denies cool extremities, Denies chest pain, Reports leg edema, Denies lightheadedness, Denies palpitations and Denies dyspnea Respiratory: Reports as per HPI, Reports no additional respiratory complaints and Denies dyspnea Gastrointestinal: Reports as per HPI and Reports no additional gastrointestinal complaints Genitourinary: Reports no additional male genitourinary complaints and Reports as per HPI Musculoskeletal: Reports no additional musculoskeletal complaints and Reports as per HPI Skin/Breast: Reports system reviewed and no additional complaints, except as doc u Reports system reviewed and no additional complaints, except as documented and Reports as per HPI Psychiatric: Reports no additional psychiatric complaints and Reports as per HPI Endocrine: Reports no additional endocrine complaints, Reports as per HPI and Denies palpitations Hematologic/Lymphatic: Reports no additional hematologic/lymphatic complaints and Reports as per HPI Allergic/Immunologic: Reports no additional allergic/immunologic complaints and Reports as per HPI Physical Exam Vital Signs: Last Vital Signs Temp 98.1 F 06/14/22 07:13 Pulse 62 06/14/22 07:57 Resp 18 06/14/22 07:57 BP 113/65 06/14/22 07:13 Pulse Ox 97 06/14/22 07:13 O2 Del Method 06/14/22 07:13 O2 Flow Rate 3 06/14/22 07:13 FiO2 97 06/13/22 19:18 BMI result Body Mass Index 53.5 Const General: comfortable and no acute distress Orientation/consciousness: patient oriented x3 HEENT Other: Unremarkable Head: Yes normal to inspection Neck Neck: Yes normal visual inspection Chest Chest palpation & inspection: normal inspection of the chest Resp Other: Scattered rhonchi Cardio Palpation: normal PMI Heart sounds: S1 normal heart sound present, S2 normal heart sound present, no gallops, no murmurs and no rubs GI Palpation (GI): Soft to palpation Back/Spine/Pelvis Other: unremarkable Skin General skin exam: no rashes or lesions noted Lesions: lesion noted (Right lower extremity, dressing over it.) Neuro General: patient oriented x3 Extrem General: Yes normal to inspection Right lower extremity: edema Details: pitting and 2+ Left lower extremity: edema Details: pitting and 2+ Psych Mental Status: mental status grossly normal Objective Labs and Meds Result diagrams: 06/10/22 12:16 06/14/22 08:00 Lab results: Laboratory Results - last 24 hr 06/13/22 06/13/22 06/13/22 11:06 16:02 19:58 Sodium Potassium Chloride Carbon Dioxide Anion Gap BUN Creatinine Estim Creat Clear Calc Estimated GFR POC Glucose 279 H 276 H 418 H* Random Glucose Calcium 06/14/22 06/14/22 07:12 08:00 Sodium 139 Potassium 4.0 Chloride 90 L Carbon Dioxide 37 H Anion Gap 16 BUN 46 H D Creatinine 1.70 H Estim Creat Clear Calc 61.9 Estimated GFR 41 POC Glucose 138 H Random Glucose 183 H Calcium 9.7 D Progress Note: A&P Assessment and plan (1) Acute on chronic diastolic (congestive) heart failure: Status: Acute (2) Acute on chronic right heart failure: Status: Acute (3) New onset right bundle branch block (RBBB): Status: Acute (4) Cocaine abuse: Status: Acute (5) Heroin abuse: Status: Acute Plan On exam, he still has volume overload. Legs look swollen up. However, unable to assess the input/output data as it is probably not accurate. He is already on Lasix drip and we can go up on the dose. Can given additional dose of metolazone. Kidney function is beginning to go up but not much of a choice otherwise. Will follow this closely. Long-term, definitely to stay off drugs. Discussed with . Time Spent With Patient Time: Total time spent is greater than 50% in coordination of care (as documented) at patient's floor/unit and/or counseling patient: 35min. Progress Note: Quality Stroke Does the patient have a stroke diagnosis?: No Procedures Date of Service Date of Service: 06/14/22
[2022-06-14 11:23] LABS: Glucose, Whole Blood 317 mg/dL (60-115)
[2022-06-14] MEDS: Insulin Lispro 100 UNIT/ML 3 ML VIAL SUBCUT ×3 (11:43→20:33)
--- NOTE | 2022-06-14 13:00 | MHC.CM.PN ---
per mulugeta pt will not be ready for dc this weekend plan remans home no services
[2022-06-14 15:54] LABS: Glucose, Whole Blood 295 mg/dL (60-115)
[2022-06-14 20:13] LABS: Glucose, Whole Blood 330 mg/dL (60-115)
[2022-06-14] MEDS: traZODone HCL 100 MG TABLET PO (20:31)
[2022-06-14] MEDS: Atorvastatin Calcium 80 MG TABLET PO (20:31)
[2022-06-14] MEDS: Melatonin 3 MG TABLET 9 MG PO (20:32)
[2022-06-14] MEDS: Enoxaparin Sodium 40 MG/0.4 ML SYRINGE SUBCUT (20:32)
[2022-06-14] MEDS: Insulin Glargine,Hum.rec.anlog 100 UNIT/ML 10 ML VIAL 20 UNIT SUBCUT (20:33)
[2022-06-14] MEDS: Sennosides/Docusate Sodium TABLET 1 TAB PO (20:45)
[2022-06-15] VITALS (10 sets, daily range): BP systolic 100–154; BP diastolic 55–84; PULSE 64–80; RESP 17–20; TEMP 36–36.7; O2SAT 90–97; BMI 53.8
[2022-06-15] MEDS: Omeprazole 20 MG CAPSULE.DR PO (05:45)
[2022-06-15 07:25] LABS: Glucose, Whole Blood 188 mg/dL (60-115)
[2022-06-15] MEDS: Albuterol/Iprat 2.5/0.5MG 3 ML AMPUL.NEB INHALE ×3 (07:46→18:52)
[2022-06-15] MEDS: Fluticasone/Vilanterol 100/25 BLST.W.DEV 1 PUFF INHALE (07:46)
--- NOTE | 2022-06-15 08:24 | HO.PM.IMPN ---
Subjective Subjective Date of Service: 06/15/22 Interval History: Seen in f/u for exacerbation of CHF Interval history:No sob of breath, but legs are still very swollen, negative fluid and creatine has gone up significantly Review of Systems no sob no fever swollen legs Physical Exam Vital Signs: Vital Signs: Last Vital Signs Temp 97.3 F 06/15/22 07:11 Pulse 71 06/15/22 07:48 Resp 20 06/15/22 07:48 BP 154/79 H 06/15/22 07:11 Pulse Ox 92 06/15/22 07:11 O2 Del Method 06/15/22 07:11 O2 Flow Rate 3 06/14/22 07:13 FiO2 95 06/14/22 19:19 BMI result Body Mass Index 53.8 Const: Other: General: AO X 3, no acute distress Resp: CTA bilateral CVS: S1,S2,RRR, 2+ pitting edema GI: +BS, NT, no distention Skin: No rash Neuro: motor grossly intact Psych: appropriate affect Objective Data Active Medications Acetaminophen (Acetaminophen 325 Mg Tablet) 650 mg PO Q8H PRN PRN Reason: Pain (Scale Score 1-3) Albuterol/Ipratropium (Albuterol/Iprat 2.5/0.5mg 3 Ml Ampul.Neb) 3 ml INHALE RQ4H [facility] Last Admin: 06/15/22 07:46 Dose: 3 ml Documented By: KEEGAN Amlodipine Besylate (Amlodipine Besylate 10 Mg Tablet) 10 mg PO BEDTIME [facility]; Protocol Last Admin: 06/14/22 19:42 Dose: Not Given Documented By: TELLY Non-Admin Reason: held med due to hypotension Atorvastatin Calcium (Atorvastatin Calcium 80 Mg Tablet) 80 mg PO BEDTIME [facility] Last Admin: 06/14/22 20:31 Dose: 80 mg Documented By: TELLY Bupropion HCl (Bupropion Hcl Xl 300 Mg Tab.Er.24h) 300 mg PO DAILY [facility] Last Admin: 06/14/22 08:20 Dose: 300 mg Documented By: TATY Calcium Carbonate/Cholecalciferol (Calcium + Vitamin D 250 Mg Tablet) 500 mg PO BID [facility] Last Admin: 06/14/22 20:31 Dose: 500 mg Documented By: TELLY Carvedilol (Carvedilol 25 Mg Tablet) 25 mg PO BID [facility]; Protocol Last Admin: 06/14/22 19:42 Dose: Not Given Documented By: TELLY Non-Admin Reason: MD held med due to hypotension Clonidine HCl (Clonidine Hcl 0.1 Mg Tablet) 0.1 mg PO DAILY [facility]; Protocol Last Admin: 06/14/22 08:21 Dose: 0.1 mg Documented By: TATY Clopidogrel Bisulfate (Clopidogrel Bisulfate 75 Mg Tablet) 75 mg PO DAILY [facility] Last Admin: 06/14/22 08:21 Dose: 75 mg Documented By: TATY Dextrose (Dextrose 50 % 25 Gm/50 Ml Syringe) 25 gm IVPUSH Q15M PRN; Protocol PRN Reason: per Hypoglycemia Standing Ord. Enoxaparin Sodium (Enoxaparin Sodium 40 Mg/0.4 Ml Syringe) 40 mg SUBCUT Q24H [facility] Last Admin: 06/14/22 20:32 Dose: 40 mg Documented By: TELLY Fluticasone Propionate (Fluticasone Propionate Nasal 16 Gm [place]) 2 spray NOSTRIL-B DAILY [facility] Last Admin: 06/14/22 08:22 Dose: Not Given Documented By: TATY Non-Admin Reason: Patient Refused Fluticasone/Vilanterol (Fluticasone/Vilanterol 100/25 Blst.W.Dev) 1 puff INHALE RDAILY [facility] Last Admin: 06/15/22 07:46 Dose: 1 puff Documented By: KEEGAN Glucose (Glucose Gel 15 Gm Gel..Gram.) 15 gm PO Q15M PRN; Protocol PRN Reason: per Hypoglycemia Standing Ord. Hydralazine HCl (Hydralazine Hcl 50 Mg Tablet) 100 mg PO TID [facility]; Protocol Last Admin: 06/14/22 19:42 Dose: Not Given Documented By: TELLY Non-Admin Reason: held med due to hypotension Furosemide 200 mg/ Sodium (Chloride) 100 mls @ 2.5 mls/hr IVCONT .Q24H [facility] Last Admin: 06/14/22 09:18 Dose: 5 mg/hr, 2.5 mls/hr Documented By: TATY Insulin Glargine (Insulin Glargine,Hum.Rec.Anlog 100 Unit/Ml 10 Ml Vial) 20 unit SUBCUT BEDTIME [facility] Last Admin: 06/14/22 20:33 Dose: 20 unit Documented By: TELLY Insulin Human Lispro (Insulin Lispro 100 Unit/Ml 3 Ml Vial) 0 unit SUBCUT QIDACHS [facility]; Protocol Last Admin: 06/14/22 20:33 Dose: 8 unit Documented By: TELLY Isosorbide Mononitrate (Isosorbide Mononitrate 30 Mg Tab.Er.24h) 90 mg PO DAILY [facility]; Protocol Last Admin: 06/14/22 08:21 Dose: 90 mg Documented By: TATY Losartan Potassium (Losartan Potassium 50 Mg Tablet) 150 mg PO DAILY [facility]; Protocol Last Admin: 06/14/22 08:20 Dose: 150 mg Documented By: TATY Melatonin (Melatonin 3 Mg Tablet) 9 mg PO BEDTIME [facility] Last Admin: 06/14/22 20:32 Dose: 9 mg Documented By: TELLY Methadone HCl (Methadone Hcl 20 Mg/2 Ml Oral.Conc) 35 mg PO DAILY [facility] Last Admin: 06/14/22 08:22 Dose: Not Given Documented By: TATY Non-Admin Reason: Patient Refused Nitroglycerin (Nitroglycerin 0.4 Mg Tab.Subl) 0.4 mg SUBLINGUAL Q5M PRN PRN Reason: Chest Pain Omeprazole (Omeprazole 20 Mg Capsule.Dr) 20 mg PO DAILY@0630 [facility] Last Admin: 06/15/22 05:45 Dose: 20 mg Documented By: TELLY Pharmacy Consult (Consult Rx Perform Med Rec) 1 each MISCELLANE ONCE PRN PRN Reason: Consult order Prednisone (Prednisone 20 Mg Tablet) 20 mg PO DAILY [facility] Last Admin: 06/14/22 08:20 Dose: 20 mg Documented By: TATY Senna/Docusate Sodium (Sennosides/Docusate Sodium Tablet) 1 tab PO BID PRN PRN Reason: Constipation Last Admin: 06/14/22 20:45 Dose: 1 tab Documented By: TELLY Sodium Chloride (0.9 % Sodium Chloride Flush 3 Ml Syringe) 3 ml IVFLUSH QSHIFT [facility] Last Admin: 06/15/22 01:10 Dose: Not Given Documented By: TELLY Non-Admin Reason: IV Running Spironolactone (Spironolactone 25 Mg Tablet) 25 mg PO BID@0900,1700 [facility]; Protocol Last Admin: 06/14/22 16:28 Dose: 25 mg Documented By: TATY Tiotropium [place] (Tiotropium [place] 18 Mcg Cap.W.Dev) 1 puff INHALE RDAILY [facility] Last Admin: 06/15/22 07:46 Dose: 1 puff Documented By: KEEGAN Trazodone HCl (Trazodone Hcl 100 Mg Tablet) 100 mg PO BEDTIME [facility] Last Admin: 06/14/22 20:31 Dose: 100 mg Documented By: TELLY Verapamil HCl (Verapamil Hcl Sr 240 Mg Tablet.Er) 240 mg PO BEDTIME [facility]; Protocol Last Admin: 06/14/22 19:42 Dose: Not Given Documented By: TELLY Non-Admin Reason: held med due to hypotension Vitamin D (Cholecalciferol (Vitamin D3) 25 Mcg Tablet) 25 mcg PO DAILY [facility] Last Admin: 06/14/22 08:20 Dose: 25 mcg Documented By: TATY Labs CBC & Chem 7: 06/10/22 12:16 06/15/22 07:49 Labs: Laboratory Results - last 24 hr 06/14/22 06/14/22 06/14/22 08:00 11:17 15:50 Anion Gap 16 Estim Creat Clear Calc 61.9 Estimated GFR 41 POC Glucose 317 H 295 H Random Glucose 183 H Calcium 9.7 D 06/14/22 06/15/22 20:07 07:14 Anion Gap Estim Creat Clear Calc Estimated GFR POC Glucose 330 H 188 H Random Glucose Calcium Assessment and Plan (1) Acute on chronic diastolic (congestive) heart failure: Status: Acute Plan 61-year-old man admitted with right lower extremity edema and some shortness of breath with ambulation Heart failure with preserved ejection fraction with acute exacerbation +negative 2 liter -IV lasix drip and metolazone started yesterday -Monitor I/O, weight and salt -Last echocardiogram with EF of 50-55% with grade 2 diastolic dysfunction. -Cardiology following -Monitor weight, I/O, and salt intake -Continue carvedilol, spironolactone- -Creatine is going up so might hold lasix MELISSA--? cardio renal state, nephrology consult, worst today. Stop Lasix drip, Nephrology New RBBB--cardiology to advise on next step, no acute ischemic finding COPD-seems mild exacerbation -Bronchodilators by Neb, Prednisone at 20 daily Hypertension-controlled--BP on lower side so hold hydralazone, clonidine, mdclaude Continue losartan, isosorbide, hydralazine, verapamil, clonidine Mental health Continue home medications Substance abuse Every day heroine use -Methadone, addiction med consult GERD Continue PPI right leg wound--local care Morbid obesity::? Advised to lose weight as making his health issues worse DVT prophylaxis Lovenox inpatient need: Heart failure needing IV diuretics and monitoring for clinical response and electrolytes, renal function Quality Stroke Does the patient have a stroke diagnosis?: No VTE Prior VTE?: No VTE Risk Level:: Medical - moderate - high VTE Device Contraindication: N/A - Device Ordered VTE Drug Contraindication: N/A - Med Ordered
[2022-06-15 08:30] LABS: Anion Gap 19 (12-20); Blood Urea Nitrogen 54 mg/dL (9-16); Calcium 9.8 mg/dL (8.4-10.2); Carbon Dioxide 38 mmol/L (22-29); Chloride 89 mmol/L (96-108); Creatinine Clr Calc Pharmacy 54.7; Estimated Glomerular Filt Rate 35; Glucose Random 190 mg/dL (60-115); Potassium 4.8 mmol/L (3.3-5.1); Sodium 141 mmol/L (135-145)
[2022-06-15] MEDS: Losartan Potassium 50 MG TABLET 150 MG PO (08:53)
[2022-06-15] MEDS: buPROPion HCl XL 300 MG TAB.ER.24H PO (08:53)
[2022-06-15] MEDS: Isosorbide Mononitrate 30 MG TAB.ER.24H 90 MG PO (08:53)
[2022-06-15] MEDS: Insulin Lispro 100 UNIT/ML 3 ML VIAL SUBCUT ×4 (08:53→20:12)
[2022-06-15] MEDS: Cholecalciferol (Vitamin D3) 25 MCG TABLET PO (08:54)
[2022-06-15] MEDS: cloNIDine HCL 0.1 MG TABLET PO (08:54)
[2022-06-15] MEDS: hydrALAZINE HCl 50 MG TABLET 100 MG PO ×2 (08:54→20:11)
[2022-06-15] MEDS: Clopidogrel Bisulfate 75 MG TABLET PO (08:54)
[2022-06-15] MEDS: Spironolactone 25 MG TABLET PO ×2 (08:54→16:49)
[2022-06-15] MEDS: carvediloL 25 MG TABLET PO ×2 (08:54→20:11)
[2022-06-15] MEDS: Calcium + Vitamin D 250 MG TABLET 500 MG PO ×2 (08:54→20:11)
[2022-06-15] MEDS: predniSONE 20 MG TABLET PO (08:54)
[2022-06-15 11:21] LABS: Glucose, Whole Blood 327 mg/dL (60-115)
[2022-06-15] MEDS: Furosemide 200 MG in 0.9 % Sodium Chloride 80 ML IVCONT (12:00)
--- NOTE | 2022-06-15 14:10 | PM.PNNEP ---
Subjective Subjective Date of Service: 06/15/22 Interval history: Seen and examined Physical Exam Vital Signs: Vital Signs: Last Vital Signs Temp 97.3 F 06/15/22 11:01 Pulse 80 06/15/22 11:01 Resp 18 06/15/22 11:01 BP 114/65 06/15/22 11:01 Pulse Ox 92 06/15/22 11:01 O2 Del Method 06/15/22 11:01 O2 Flow Rate 3 06/14/22 07:13 FiO2 95 06/14/22 19:19 BMI result Body Mass Index 53.8 Objective Data Labs CBC & Chem 7: 06/10/22 12:16 06/15/22 07:49 Labs: Laboratory Results - last 24 hr 06/14/22 06/14/22 06/15/22 15:50 20:07 07:14 Sodium Potassium Chloride Carbon Dioxide Anion Gap BUN Creatinine Estim Creat Clear Calc Estimated GFR POC Glucose 295 H 330 H 188 H Random Glucose Calcium 06/15/22 06/15/22 07:49 11:03 Sodium 141 Potassium 4.8 Chloride 89 L Carbon Dioxide 38 H Anion Gap 19 BUN 54 H Creatinine 1.93 H Estim Creat Clear Calc 54.7 Estimated GFR 35 POC Glucose 327 H Random Glucose 190 H Calcium 9.8 Microbiology Microbiology Results: Microbiology 06/10/22 16:01 Blood - Venous Blood Culture - Preliminary No growth after 48 hours. 06/10/22 14:35 Blood - Venous Blood Culture - Preliminary No growth after 48 hours. Procedures Date of Service Date of Service: 06/15/22 Assessment & Plan Assessment and plan (1) MELISSA (acute kidney injury): Status: Acute (2) Heart failure with preserved ejection fraction: Status: Acute (3) Metabolic alkalosis: Status: Acute Plan MELISSA c/w with type 1 cardio renal syndrome and renal hypoperfusion hypotensive earlier normal baseline kidney function LVEF 55% with diastolic dysfunction volume status above dry weight REC continue furosemide infusion acetazolamide for TCO2 <>= 40 avoid hypotension follow kidney function and electrolytes Time Spent With Patient Time: Total time spent is greater than 50% in coordination of care (as documented) at patient's floor/unit and/or counseling patient: Progress Note: Quality Stroke Does the patient have a stroke diagnosis?: No
[2022-06-15 16:10] LABS: Glucose, Whole Blood 291 mg/dL (60-115)
[2022-06-15 19:49] LABS: Glucose, Whole Blood 304 mg/dL (60-115)
[2022-06-15] MEDS: Melatonin 3 MG TABLET 9 MG PO (20:11)
[2022-06-15] MEDS: Enoxaparin Sodium 40 MG/0.4 ML SYRINGE SUBCUT (20:11)
[2022-06-15] MEDS: VerapamiL HCL SR 240 MG TABLET.ER PO (20:11)
[2022-06-15] MEDS: Atorvastatin Calcium 80 MG TABLET PO (20:11)
[2022-06-15] MEDS: traZODone HCL 100 MG TABLET PO (20:11)
[2022-06-15] MEDS: amLODIPine Besylate 10 MG TABLET PO (20:11)
[2022-06-15] MEDS: Insulin Glargine,Hum.rec.anlog 100 UNIT/ML 10 ML VIAL 20 UNIT SUBCUT (20:12)
[2022-06-16] VITALS (10 sets, daily range): BP systolic 93–140; BP diastolic 54–70; PULSE 55–82; RESP 16–18; TEMP 35.7–36.9; O2SAT 93–100
[2022-06-16] MEDS: Omeprazole 20 MG CAPSULE.DR PO (05:27)
[2022-06-16 07:29] LABS: Glucose, Whole Blood 166 mg/dL (60-115)
[2022-06-16] MEDS: Insulin Lispro 100 UNIT/ML 3 ML VIAL SUBCUT ×4 (08:22→20:51)
[2022-06-16] MEDS: Calcium + Vitamin D 250 MG TABLET 500 MG PO ×2 (08:23→20:50)
[2022-06-16] MEDS: carvediloL 25 MG TABLET PO ×2 (08:23→20:50)
[2022-06-16] MEDS: Cholecalciferol (Vitamin D3) 25 MCG TABLET PO (08:23)
[2022-06-16] MEDS: buPROPion HCl XL 300 MG TAB.ER.24H PO (08:23)
[2022-06-16] MEDS: Losartan Potassium 50 MG TABLET 150 MG PO (08:24)
[2022-06-16] MEDS: Isosorbide Mononitrate 30 MG TAB.ER.24H 90 MG PO (08:24)
[2022-06-16] MEDS: Spironolactone 25 MG TABLET PO ×2 (08:25→16:58)
[2022-06-16] MEDS: hydrALAZINE HCl 50 MG TABLET 100 MG PO ×2 (08:25→20:49)
[2022-06-16] MEDS: Clopidogrel Bisulfate 75 MG TABLET PO (08:26)
[2022-06-16] MEDS: cloNIDine HCL 0.1 MG TABLET PO (08:26)
[2022-06-16] MEDS: predniSONE 20 MG TABLET PO (08:26)
[2022-06-16 08:28] LABS: Anion Gap 18 (12-20); Blood Urea Nitrogen 55 mg/dL (9-16); Chloride 89 mmol/L (96-108); Estimated Glomerular Filt Rate 39; Glucose Random 187 mg/dL (60-115); Potassium 4.7 mmol/L (3.3-5.1); Sodium 142 mmol/L (135-145)
[2022-06-16] MEDS: Albuterol/Iprat 2.5/0.5MG 3 ML AMPUL.NEB INHALE ×4 (08:42→18:48)
[2022-06-16] MEDS: Fluticasone/Vilanterol 100/25 BLST.W.DEV 1 PUFF INHALE (08:42)
--- NOTE | 2022-06-16 08:56 | HO.PM.IMPN ---
Subjective Subjective Date of Service: 06/16/22 Interval History: Seen in f/u for exacerbation of CHF Interval history:No sob of breath, legs remain swollen, Cr is better despite Lasix still ongoing Review of Systems no sob no fever swollen legs Physical Exam Vital Signs: Vital Signs: Last Vital Signs Temp 97.6 F 06/16/22 07:15 Pulse 68 06/16/22 08:43 Resp 18 06/16/22 08:43 BP 133/70 06/16/22 07:15 Pulse Ox 97 06/16/22 07:15 O2 Del Method 06/16/22 07:15 O2 Flow Rate 3 06/14/22 07:13 FiO2 95 06/14/22 19:19 BMI result Body Mass Index 53.8 Const: Other: General: AO X 3, no acute distress Resp: CTA bilateral CVS: S1,S2,RRR, 2+ pitting edema GI: +BS, NT, no distention Skin: No rash Neuro: motor grossly intact Psych: appropriate affect Objective Data Active Medications Acetaminophen (Acetaminophen 325 Mg Tablet) 650 mg PO Q8H PRN PRN Reason: Pain (Scale Score 1-3) Albuterol/Ipratropium (Albuterol/Iprat 2.5/0.5mg 3 Ml Ampul.Neb) 3 ml INHALE RQ4H [facility] Last Admin: 06/16/22 08:42 Dose: 3 ml Documented By: MARCELA Amlodipine Besylate (Amlodipine Besylate 10 Mg Tablet) 10 mg PO BEDTIME [facility]; Protocol Last Admin: 06/15/22 20:11 Dose: 10 mg Documented By: BRYANNA Atorvastatin Calcium (Atorvastatin Calcium 80 Mg Tablet) 80 mg PO BEDTIME [facility] Last Admin: 06/15/22 20:11 Dose: 80 mg Documented By: BRYANNA Bupropion HCl (Bupropion Hcl Xl 300 Mg Tab.Er.24h) 300 mg PO DAILY [facility] Last Admin: 06/16/22 08:23 Dose: 300 mg Documented By: FIDEL Calcium Carbonate/Cholecalciferol (Calcium + Vitamin D 250 Mg Tablet) 500 mg PO BID [facility] Last Admin: 06/16/22 08:23 Dose: 500 mg Documented By: FIDEL Carvedilol (Carvedilol 25 Mg Tablet) 25 mg PO BID [facility]; Protocol Last Admin: 06/16/22 08:23 Dose: 25 mg Documented By: FIDEL Clonidine HCl (Clonidine Hcl 0.1 Mg Tablet) 0.1 mg PO DAILY [facility]; Protocol Last Admin: 06/16/22 08:26 Dose: 0.1 mg Documented By: FIDEL Clopidogrel Bisulfate (Clopidogrel Bisulfate 75 Mg Tablet) 75 mg PO DAILY [facility] Last Admin: 06/16/22 08:26 Dose: 75 mg Documented By: FIDEL Dextrose (Dextrose 50 % 25 Gm/50 Ml Syringe) 25 gm IVPUSH Q15M PRN; Protocol PRN Reason: per Hypoglycemia Standing Ord. Enoxaparin Sodium (Enoxaparin Sodium 40 Mg/0.4 Ml Syringe) 40 mg SUBCUT Q24H [facility] Last Admin: 06/15/22 20:11 Dose: 40 mg Documented By: BRYANNA Fluticasone Propionate (Fluticasone Propionate Nasal 16 Gm [place]) 2 spray NOSTRIL-B DAILY [facility] Last Admin: 06/15/22 08:51 Dose: Not Given Documented By: FIDEL Non-Admin Reason: Patient Refused Fluticasone/Vilanterol (Fluticasone/Vilanterol 100/25 Blst.W.Dev) 1 puff INHALE RDAILY [facility] Last Admin: 06/16/22 08:42 Dose: 1 puff Documented By: MARCELA Glucose (Glucose Gel 15 Gm Gel..Gram.) 15 gm PO Q15M PRN; Protocol PRN Reason: per Hypoglycemia Standing Ord. Hydralazine HCl (Hydralazine Hcl 50 Mg Tablet) 100 mg PO TID [facility]; Protocol Last Admin: 06/16/22 08:25 Dose: 100 mg Documented By: FIDEL Furosemide 200 mg/ Sodium (Chloride) 100 mls @ 2.5 mls/hr IVCONT .Q24H [facility] Last Admin: 06/15/22 12:00 Dose: 5 mg/hr, 2.5 mls/hr Documented By: FIDEL Insulin Glargine (Insulin Glargine,Hum.Rec.Anlog 100 Unit/Ml 10 Ml Vial) 20 unit SUBCUT BEDTIME [facility] Last Admin: 06/15/22 20:12 Dose: 20 unit Documented By: BRYANNA Insulin Human Lispro (Insulin Lispro 100 Unit/Ml 3 Ml Vial) 0 unit SUBCUT QIDACHS [facility]; Protocol Last Admin: 06/16/22 08:22 Dose: 2 unit Documented By: FIDEL Isosorbide Mononitrate (Isosorbide Mononitrate 30 Mg Tab.Er.24h) 90 mg PO DAILY [facility]; Protocol Last Admin: 06/16/22 08:24 Dose: 90 mg Documented By: FIDEL Losartan Potassium (Losartan Potassium 50 Mg Tablet) 150 mg PO DAILY [facility]; Protocol Last Admin: 06/16/22 08:24 Dose: 150 mg Documented By: FIDEL Melatonin (Melatonin 3 Mg Tablet) 9 mg PO BEDTIME [facility] Last Admin: 06/15/22 20:11 Dose: 9 mg Documented By: BRYANNA Methadone HCl (Methadone Hcl 20 Mg/2 Ml Oral.Conc) 35 mg PO DAILY [facility] Last Admin: 06/15/22 08:51 Dose: Not Given Documented By: FIDEL Non-Admin Reason: Patient Refused Nitroglycerin (Nitroglycerin 0.4 Mg Tab.Subl) 0.4 mg SUBLINGUAL Q5M PRN PRN Reason: Chest Pain Omeprazole (Omeprazole 20 Mg Capsule.Dr) 20 mg PO DAILY@0630 [facility] Last Admin: 06/16/22 05:27 Dose: 20 mg Documented By: BRYANNA Pharmacy Consult (Consult Rx Perform Med Rec) 1 each MISCELLANE ONCE PRN PRN Reason: Consult order Prednisone (Prednisone 20 Mg Tablet) 20 mg PO DAILY [facility] Last Admin: 06/16/22 08:26 Dose: 20 mg Documented By: FIDEL Senna/Docusate Sodium (Sennosides/Docusate Sodium Tablet) 1 tab PO BID PRN PRN Reason: Constipation Last Admin: 06/14/22 20:45 Dose: 1 tab Documented By: TELLY Spironolactone (Spironolactone 25 Mg Tablet) 25 mg PO BID@0900,1700 [facility]; Protocol Last Admin: 06/16/22 08:25 Dose: 25 mg Documented By: FIDEL Tiotropium [place] (Tiotropium [place] 18 Mcg Cap.W.Dev) 1 puff INHALE RDAILY [facility] Last Admin: 06/16/22 08:42 Dose: 1 puff Documented By: MARCELA Trazodone HCl (Trazodone Hcl 100 Mg Tablet) 100 mg PO BEDTIME [facility] Last Admin: 06/15/22 20:11 Dose: 100 mg Documented By: BRYANNA Verapamil HCl (Verapamil Hcl Sr 240 Mg Tablet.Er) 240 mg PO BEDTIME [facility]; Protocol Last Admin: 06/15/22 20:11 Dose: 240 mg Documented By: BRYANNA Vitamin D (Cholecalciferol (Vitamin D3) 25 Mcg Tablet) 25 mcg PO DAILY [facility] Last Admin: 06/16/22 08:23 Dose: 25 mcg Documented By: FIDEL Labs CBC & Chem 7: 06/10/22 12:16 06/16/22 06:53 Labs: Laboratory Results - last 24 hr 06/15/22 06/15/22 06/15/22 11:03 16:04 19:44 Anion Gap Estim Creat Clear Calc Estimated GFR POC Glucose 327 H 291 H 304 H Random Glucose Calcium 06/16/22 06/16/22 06:53 07:20 Anion Gap 18 Estim Creat Clear Calc 60.0 Estimated GFR 39 POC Glucose 166 H Random Glucose 187 H Calcium 10.0 Microbiology Microbiology Results: Microbiology 06/10/22 16:01 Blood Culture - Final Blood - Venous No growth after 5 days. 06/10/22 14:35 Blood Culture - Final Blood - Venous No growth after 5 days. Assessment and Plan (1) Acute on chronic diastolic (congestive) heart failure: Status: Acute Plan 61-year-old man admitted with right lower extremity edema and some shortness of breath with ambulation Heart failure with preserved ejection fraction with acute exacerbation +negative 2 liter -IV lasix drip and metolazone for 2 days now -Monitor I/O, weight and salt -Last echocardiogram with EF of 50-55% with grade 2 diastolic dysfunction. -Cardiology following -Monitor weight, I/O, and salt intake -Continue carvedilol, spironolactone- -Creatine is going up so might hold lasix, will discuss with renal MELISSA--? cardio renal state, nephrology consult, worst today. Nephrology following, continue Lasix for now, Metabolic alkalosis d/t Lasis--Diamox New RBBB--cardiology to advise on next step, no acute ischemic finding COPD-seems mild exacerbation -Bronchodilators by Neb, Prednisone at 20 daily Hypertension-controlled--BP on lower side so hold hydralazone, clonidine, mdclaude Continue losartan, isosorbide, hydralazine, verapamil, clonidine Mental health Continue home medications Substance abuse Every day heroine use -Methadone, addiction med consult GERD Continue PPI right leg wound--local care Morbid obesity::? Advised to lose weight as making his health issues worse DVT prophylaxis Lovenox inpatient need: Heart failure needing IV diuretics and monitoring for clinical response and electrolytes, renal function Quality Stroke Does the patient have a stroke diagnosis?: No VTE Prior VTE?: No VTE Risk Level:: Medical - moderate - high VTE Device Contraindication: N/A - Device Ordered VTE Drug Contraindication: N/A - Med Ordered
[2022-06-16] MEDS: acetaZOLAMIDE sodium 500 MG VIAL IVPUSH (10:04)
[2022-06-16] MEDS: Acetaminophen 325 MG TABLET 650 MG PO (10:04)
--- NOTE | 2022-06-16 10:36 | PM.PNNEP ---
Subjective Subjective Date of Service: 06/16/22 Interval history: seen and examined c/o SOB and weakness Physical Exam Vital Signs: Vital Signs: Last Vital Signs Temp 97.6 F 06/16/22 07:15 Pulse 68 06/16/22 08:43 Resp 18 06/16/22 08:43 BP 133/70 06/16/22 07:15 Pulse Ox 97 06/16/22 07:15 O2 Del Method 06/16/22 07:15 O2 Flow Rate 3 06/14/22 07:13 FiO2 95 06/14/22 19:19 BMI result Body Mass Index 53.8 Const: General: no acute distress Neck: Neck: Yes supple Resp: Auscultation: diminished lung sounds Cardio: Heart sounds: S1 normal heart sound present and S2 normal heart sound present GI: Inspection: Yes obesity Palpation (GI): Soft to palpation and nontender Extrem: General: Yes edema Objective Data Labs CBC & Chem 7: 06/10/22 12:16 06/16/22 06:53 Labs: Laboratory Results - last 24 hr 06/15/22 06/15/22 06/15/22 11:03 16:04 19:44 Sodium Potassium Chloride Carbon Dioxide Anion Gap BUN Creatinine Estim Creat Clear Calc Estimated GFR POC Glucose 327 H 291 H 304 H Random Glucose Calcium 06/16/22 06/16/22 06:53 07:20 Sodium 142 Potassium 4.7 Chloride 89 L Carbon Dioxide 40 H* Anion Gap 18 BUN 55 H Creatinine 1.76 H Estim Creat Clear Calc 60.0 Estimated GFR 39 POC Glucose 166 H Random Glucose 187 H Calcium 10.0 Microbiology Microbiology Results: Microbiology 06/10/22 16:01 Blood - Venous Blood Culture - Final No growth after 5 days. 06/10/22 14:35 Blood - Venous Blood Culture - Final No growth after 5 days. Procedures Date of Service Date of Service: 06/16/22 Assessment & Plan Assessment and plan (1) MELISSA (acute kidney injury): Status: Acute (2) Heart failure with preserved ejection fraction: Status: Acute (3) Metabolic alkalosis: Status: Acute Plan kidney function better with diuresis MELISSA c/w with type 1 cardio renal syndrome and renal hypoperfusion hypotensive earlier normal baseline kidney function LVEF 55% with diastolic dysfunction volume status remains above dry weight REC continue furosemide infusion acetazolamide for TCO2 <>= 40 avoid hypotension follow kidney function and electrolytes Time Spent With Patient Time: Total time spent is greater than 50% in coordination of care (as documented) at patient's floor/unit and/or counseling patient: Progress Note: Quality Stroke Does the patient have a stroke diagnosis?: No
[2022-06-16] MEDS: Furosemide 200 MG in 0.9 % Sodium Chloride 80 ML IVCONT (11:22)
[2022-06-16 11:30] LABS: Glucose, Whole Blood 342 mg/dL (60-115)
[2022-06-16 12:54] LABS: Carbon Dioxide 40 mmol/L (22-29)
--- NOTE | 2022-06-16 14:46 | PC.NURSE ---
Dressing on right lower leg changed, two small open area (burst blisters) wound gel applied, covered with abd pad, melissa bandage and chris wrap, patient tolerated procedure well.
[2022-06-16 16:48] LABS: Glucose, Whole Blood 304 mg/dL (60-115)
[2022-06-16 20:40] LABS: Glucose, Whole Blood 303 mg/dL (60-115)
[2022-06-16] MEDS: VerapamiL HCL SR 240 MG TABLET.ER PO (20:49)
[2022-06-16] MEDS: Atorvastatin Calcium 80 MG TABLET PO (20:50)
[2022-06-16] MEDS: amLODIPine Besylate 10 MG TABLET PO (20:50)
[2022-06-16] MEDS: Melatonin 3 MG TABLET 9 MG PO (20:50)
[2022-06-16] MEDS: traZODone HCL 100 MG TABLET PO (20:51)
[2022-06-16] MEDS: Insulin Glargine,Hum.rec.anlog 100 UNIT/ML 10 ML VIAL 20 UNIT SUBCUT (20:52)
[2022-06-16] MEDS: Enoxaparin Sodium 40 MG/0.4 ML SYRINGE SUBCUT (20:53)
[2022-06-17 03:11] VITALS: BP 121/67; PULSE 64; RESP 18; TEMP 36.2; O2SAT 96
[2022-06-17] MEDS: Omeprazole 20 MG CAPSULE.DR PO (05:55)
[2022-06-17 06:00] VITALS: BMI 53.1
[2022-06-17] MEDS: Albuterol/Iprat 2.5/0.5MG 3 ML AMPUL.NEB INHALE ×2 (07:34→11:39)
[2022-06-17] MEDS: Fluticasone/Vilanterol 100/25 BLST.W.DEV 1 PUFF INHALE (07:34)
[2022-06-17 07:36] VITALS: PULSE 61; RESP 18; O2SAT 96
[2022-06-17 07:56] LABS: Glucose, Whole Blood 147 mg/dL (60-115)
[2022-06-17 08:00] VITALS: BP 117/65; PULSE 69; RESP 16; TEMP 36.6; O2SAT 94
[2022-06-17] MEDS: Calcium + Vitamin D 250 MG TABLET 500 MG PO (08:16)
[2022-06-17] MEDS: Cholecalciferol (Vitamin D3) 25 MCG TABLET PO (08:17)
[2022-06-17] MEDS: Clopidogrel Bisulfate 75 MG TABLET PO (08:17)
[2022-06-17] MEDS: Isosorbide Mononitrate 30 MG TAB.ER.24H 90 MG PO (08:17)
[2022-06-17] MEDS: Losartan Potassium 50 MG TABLET 150 MG PO (08:17)
[2022-06-17] MEDS: buPROPion HCl XL 300 MG TAB.ER.24H PO (08:17)
[2022-06-17] MEDS: predniSONE 20 MG TABLET PO (08:17)
[2022-06-17] MEDS: Spironolactone 25 MG TABLET PO (08:19)
[2022-06-17] MEDS: cloNIDine HCL 0.1 MG TABLET PO (08:19)
[2022-06-17] MEDS: carvediloL 25 MG TABLET PO (08:20)
[2022-06-17] MEDS: hydrALAZINE HCl 50 MG TABLET 100 MG PO (08:20)
[2022-06-17 08:54] LABS: Anion Gap 18 (12-20); Blood Urea Nitrogen 60 mg/dL (9-16); Calcium 9.7 mg/dL (8.4-10.2); Carbon Dioxide 37 mmol/L (22-29); Chloride 89 mmol/L (96-108); Creatinine Clr Calc Pharmacy 48.9; Estimated Glomerular Filt Rate 31; Glucose Random 158 mg/dL (60-115); Potassium 4.7 mmol/L (3.3-5.1); Sodium 139 mmol/L (135-145)
--- NOTE | 2022-06-17 11:11 | P.PNIM_ITS ---
Subjective Subjective Date of Service: 06/17/22 Interval History: Seen in f/u for exacerbation of CHF Interval history:No sob of breath, legs remain swollen but better, Creatine is worse today, he's threatening to leave AMA Review of Systems no sob no fever swollen legs Physical Exam Vital Signs: Vital Signs: Last Vital Signs Temp 97.9 F 06/17/22 08:00 Pulse 69 06/17/22 08:00 Resp 16 06/17/22 08:00 BP 117/65 06/17/22 08:00 Pulse Ox 94 06/17/22 08:00 O2 Del Method 06/17/22 08:00 O2 Flow Rate 5 06/17/22 08:00 FiO2 95 06/14/22 19:19 BMI result Body Mass Index 53.1 Const: Other: General: AO X 3, no acute distress Resp: CTA bilateral CVS: S1,S2,RRR, 2+ pitting edema GI: +BS, NT, no distention Skin: No rash Neuro: motor grossly intact Psych: appropriate affect Objective Data Active Medications Acetaminophen (Acetaminophen 325 Mg Tablet) 650 mg PO Q8H PRN PRN Reason: Pain (Scale Score 1-3) Last Admin: 06/16/22 10:04 Dose: 650 mg Documented By: BROJacqui Albuterol/Ipratropium (Albuterol/Iprat 2.5/0.5mg 3 Ml Ampul.Neb) 3 ml INHALE RQ4H [facility] Last Admin: 06/17/22 07:34 Dose: 3 ml Documented By: BLAINE Amlodipine Besylate (Amlodipine Besylate 10 Mg Tablet) 10 mg PO BEDTIME [facility]; Protocol Last Admin: 06/16/22 20:50 Dose: 10 mg Documented By: SHERI Atorvastatin Calcium (Atorvastatin Calcium 80 Mg Tablet) 80 mg PO BEDTIME [facility] Last Admin: 06/16/22 20:50 Dose: 80 mg Documented By: SHERI Bupropion HCl (Bupropion Hcl Xl 300 Mg Tab.Er.24h) 300 mg PO DAILY [facility] Last Admin: 06/17/22 08:17 Dose: 300 mg Documented By: LUCIA Calcium Carbonate/Cholecalciferol (Calcium + Vitamin D 250 Mg Tablet) 500 mg PO BID [facility] Last Admin: 06/17/22 08:16 Dose: 500 mg Documented By: LUCIA Carvedilol (Carvedilol 25 Mg Tablet) 25 mg PO BID [facility]; Protocol Last Admin: 06/17/22 08:20 Dose: 25 mg Documented By: LUCIA Clonidine HCl (Clonidine Hcl 0.1 Mg Tablet) 0.1 mg PO DAILY [facility]; Protocol Last Admin: 06/17/22 08:19 Dose: 0.1 mg Documented By: LUCIA Clopidogrel Bisulfate (Clopidogrel Bisulfate 75 Mg Tablet) 75 mg PO DAILY [facility] Last Admin: 06/17/22 08:17 Dose: 75 mg Documented By: LUCIA Dextrose (Dextrose 50 % 25 Gm/50 Ml Syringe) 25 gm IVPUSH Q15M PRN; Protocol PRN Reason: per Hypoglycemia Standing Ord. Enoxaparin Sodium (Enoxaparin Sodium 40 Mg/0.4 Ml Syringe) 40 mg SUBCUT Q24H [facility] Last Admin: 06/16/22 20:53 Dose: 40 mg Documented By: SHERI Fluticasone Propionate (Fluticasone Propionate Nasal 16 Gm [place]) 2 spray NOSTRIL-B DAILY [facility] Last Admin: 06/17/22 08:04 Dose: Not Given Documented By: LUCIA Non-Admin Reason: Patient Refused Fluticasone/Vilanterol (Fluticasone/Vilanterol 100/25 Blst.W.Dev) 1 puff INHALE RDAILY [facility] Last Admin: 06/17/22 07:34 Dose: 1 puff Documented By: BLAINE Glucose (Glucose Gel 15 Gm Gel..Gram.) 15 gm PO Q15M PRN; Protocol PRN Reason: per Hypoglycemia Standing Ord. Hydralazine HCl (Hydralazine Hcl 50 Mg Tablet) 100 mg PO TID [facility]; Protocol Last Admin: 06/17/22 08:20 Dose: 100 mg Documented By: LUCIA Insulin Glargine (Insulin Glargine,Hum.Rec.Anlog 100 Unit/Ml 10 Ml Vial) 20 unit SUBCUT BEDTIME [facility] Last Admin: 06/16/22 20:52 Dose: 20 unit Documented By: SHERI Insulin Human Lispro (Insulin Lispro 100 Unit/Ml 3 Ml Vial) 0 unit SUBCUT QIDACHS [facility]; Protocol Last Admin: 06/17/22 07:58 Dose: Not Given Documented By: LUCIA Non-Admin Reason: No Insulin Coverage Isosorbide Mononitrate (Isosorbide Mononitrate 30 Mg Tab.Er.24h) 90 mg PO DAILY [facility]; Protocol Last Admin: 06/17/22 08:17 Dose: 90 mg Documented By: LUCIA Losartan Potassium (Losartan Potassium 50 Mg Tablet) 150 mg PO DAILY [facility]; Protocol Last Admin: 06/17/22 08:17 Dose: 150 mg Documented By: LUCIA Melatonin (Melatonin 3 Mg Tablet) 9 mg PO BEDTIME [facility] Last Admin: 06/16/22 20:50 Dose: 9 mg Documented By: SHERI Methadone HCl (Methadone Hcl 20 Mg/2 Ml Oral.Conc) 35 mg PO DAILY [facility] Last Admin: 06/17/22 08:04 Dose: Not Given Documented By: LUCIA Non-Admin Reason: Patient Refused Nitroglycerin (Nitroglycerin 0.4 Mg Tab.Subl) 0.4 mg SUBLINGUAL Q5M PRN PRN Reason: Chest Pain Omeprazole (Omeprazole 20 Mg Capsule.Dr) 20 mg PO DAILY@0630 [facility] Last Admin: 06/17/22 05:55 Dose: 20 mg Documented By: SHERI Pharmacy Consult (Consult Rx Perform Med Rec) 1 each MISCELLANE ONCE PRN PRN Reason: Consult order Prednisone (Prednisone 20 Mg Tablet) 20 mg PO DAILY [facility] Last Admin: 06/17/22 08:17 Dose: 20 mg Documented By: LUCIA Senna/Docusate Sodium (Sennosides/Docusate Sodium Tablet) 1 tab PO BID PRN PRN Reason: Constipation Last Admin: 06/14/22 20:45 Dose: 1 tab Documented By: TELLY Spironolactone (Spironolactone 25 Mg Tablet) 25 mg PO BID@0900,1700 [facility]; Protocol Last Admin: 06/17/22 08:19 Dose: 25 mg Documented By: LUCIA Tiotropium [place] (Tiotropium [place] 18 Mcg Cap.W.Dev) 1 puff INHALE RDAILY [facility] Last Admin: 06/17/22 07:34 Dose: 1 puff Documented By: BLAINE Trazodone HCl (Trazodone Hcl 100 Mg Tablet) 100 mg PO BEDTIME [facility] Last Admin: 06/16/22 20:51 Dose: 100 mg Documented By: SHERI Verapamil HCl (Verapamil Hcl Sr 240 Mg Tablet.Er) 240 mg PO BEDTIME [facility]; Protocol Last Admin: 06/16/22 20:49 Dose: 240 mg Documented By: SHERI Vitamin D (Cholecalciferol (Vitamin D3) 25 Mcg Tablet) 25 mcg PO DAILY [facility] Last Admin: 06/17/22 08:17 Dose: 25 mcg Documented By: LUCIA Labs CBC & Chem 7: 06/10/22 12:16 06/17/22 08:15 Labs: Laboratory Results - last 24 hr 06/16/22 06/16/22 06/16/22 11:14 16:41 20:36 Anion Gap Estim Creat Clear Calc Estimated GFR POC Glucose 342 H 304 H 303 H Random Glucose Calcium 06/17/22 06/17/22 07:52 08:15 Anion Gap 18 Estim Creat Clear Calc 48.9 Estimated GFR 31 POC Glucose 147 H Random Glucose 158 H Calcium 9.7 Assessment and Plan (1) Acute on chronic diastolic (congestive) heart failure: Status: Acute Plan 61-year-old man admitted with right lower extremity edema and some shortness of breath with ambulation Heart failure with preserved ejection fraction with acute exacerbation -negative 1 liter since admission if I/O can be trusted, and there is a wide variation in the weight ranging from 136 kilo to 153 ? -IV lasix drip--stopped d/t increasing Cr -Monitor I/O, weight and salt -Last echocardiogram with EF of 50-55% with grade 2 diastolic dysfunction. -Cardiology following -Continue carvedilol, spironolactone- -will discuss further with cardiology and Nephrology MELISSA--? cardio renal state, nephrology consult, worst today. Nephrology following. Creatine worse so will stop IV lasix, Cr up from 1.16 on admission to 2.14 06/17 Metabolic alkalosis d/t Lasis--Diamox 500 yester New RBBB--cardiology advises no further testing at this time COPD-seems mild exacerbation--resolved, was on steroid and Neb no need for steroid at this time. Nebs PRN Hypertension-controlled--BP on lower side so hold hydralazone, clonidine, mdclaude Continue losartan, isosorbide, hydralazine, verapamil, clonidine Mental health Continue home medications Substance abuse--continue Methadone, addiction med made no changes GERD Continue PPI right leg wound--local care, no evidence of infection Morbid obesity::? Advised to lose weight as making his health issues worse DVT prophylaxis Lovenox inpatient need: Heart failure needing IV diuretics and monitoring for clinical response and electrolytes, renal function Quality Stroke Does the patient have a stroke diagnosis?: No VTE Prior VTE?: No VTE Risk Level:: Medical - moderate - high VTE Device Contraindication: N/A - Device Ordered VTE Drug Contraindication: N/A - Med Ordered
--- NOTE | 2022-06-17 11:18 | CONS_ITS ---
DATE OF SERVICE: 06/15/2022 HISTORY OF PRESENT ILLNESS: This is a 61-year-old patient with normal baseline kidney function, who presented to the hospital with decompensated congestive heart failure and is currently with an elevated serum creatinine. In summary, the patient came to the hospital because of worsening shortness of breath and lower extremity edema. He described weeping edema from his legs after he sustained a small cut. The patient denies any fever or chills. There is no report of nausea, vomiting, or diarrhea. Review of his vital signs show a hypotensive episode with systolic blood pressure down to the 90s. PAST MEDICAL HISTORY: Remarkable for hypertension, congestive heart failure, COPD, chronic restrictive lung disease, asthma, diabetes mellitus, dyslipidemia, anemia, obesity, obstructive sleep apnea. Opioid abuse. PAST SURGICAL HISTORY: Notable for hernia repair. MEDICATIONS: At home included amlodipine, calcium carbonate, carvedilol, clopidogrel, furosemide, hydralazine, losartan, metformin, rosuvastatin, spironolactone, nitroglycerin, methadone. ALLERGIES: HE IS ALLERGIC TO LISINOPRIL, PENICILLIN, SULFA DRUGS. SOCIAL HISTORY: He has history of opioid abuse. FAMILY HISTORY: Negative for kidney disease. REVIEW OF SYSTEMS: 10-point review of systems is negative except for pertinent in History of Present Illness. PHYSICAL EXAMINATION: VITAL SIGNS: The blood pressure is 114/65, heart rate 80, respiratory rate 18, temperature 97.3. CONSTITUTIONAL: Looks his stated age. No acute distress. NEUROLOGIC: Alert, awake. HEENT: Head is atraumatic, normocephalic. NECK: Supple. LUNGS: Decreased breath sounds. CARDIOVASCULAR: S1, S2. No rub. ABDOMEN: Soft, obese, nontender. EXTREMITIES: Peripheral edema. LABORATORY DATA: Showed a sodium 141, potassium 4.8, chloride 89, CO2 38, BUN 54, creatinine 1.93. Urinalysis with 1+ protein, 0-2 rbc. White count 10, hemoglobin 12, platelet count is 273. IMPRESSION: 1. Acute kidney injury. 2. Heart failure with preserved ejection fraction. In summary, this patient with acute kidney injury, probably due to a combination of renal perfusion as the patient was hypotensive earlier in addition to a type 1 cardiorenal syndrome. He has normal baseline kidney function, and he is known to have a history of diastolic dysfunction with left ventricular ejection fraction range of 55%. His volume status appears to be above dry weight. He also has a metabolic alkalosis in the setting of diuresis and underlying lung disease. I would continue with furosemide infusion and would start him on acetazolamide for a total bicarbonate greater than 40. I would avoid hypotension and follow closely his kidney function, electrolytes. Thank you for allowing me to participate in the care of the patient. MD CALI Sanchez/MODL / [id number]
[2022-06-17 11:41] VITALS: PULSE 65; RESP 18; O2SAT 94
--- NOTE | 2022-06-17 13:23 | PM.DS ---
DS: Providers Provider Date of Service: 06/17/22 Date of admission: 06/10/22 17:35 Primary care physician: [facility] Consults: 06/10/22 17:41 Consult to Cardiology Routine Consulting Provider: [facility] Cardiovascular Services Reason for consultation: chf Has provider been notified: No 06/10/22 17:46 Addiction Medicine Routine Consulting Provider: Sasha Avendano Reason for consultation: heroine abuse Has provider been notified: No 06/15/22 11:08 Consult to Nephrology Routine Consulting Provider: Popeye Valdez Reason for consultation: MELISSA Has provider been notified: No DS: Diagnosis Discharge Diagnosis (1) Acute on chronic diastolic (congestive) heart failure: Status: Acute DS: Summary Hospital Course Hospital Course: While ongoing treatment for heart failure and worsening renal failure, he decided to leave AMA and I could not convince him not to do so, his reasoning being that he has been here for too long. It was made tatiana to him that his conditon could worsen and possible and possibly result in need for dialysis and quite possibly even , he understood this and was able to repeat back in his own words, fourdrinier operator use. Advised to see his doctor as soon as possible and to return to the ED any time, particulary if having issues with shortness of breath, chest pain, not voiding and others condition to don't seem normal. I made another effort again to convince last minutes with fourdrinier operator, RN with no success Time Spent with Patient Time attestation: Total time spent providing and/or coordinating discharge services: Discharge coordination time: Greater than 30 minutes Quality: Safe Use of Opioids Does Pt have an Active Cancer Diagnosis on the Problem List?: No Quality: Stroke Does the patient have a stroke diagnosis?: No Physical Exam Vital Signs: Vital Signs: Last Vital Signs Temp 97.9 F 06/17/22 08:00 Pulse 65 06/17/22 11:41 Resp 18 06/17/22 11:41 BP 117/65 06/17/22 08:00 Pulse Ox 94 06/17/22 08:00 O2 Del Method 06/17/22 08:00 O2 Flow Rate 5 06/17/22 08:00 FiO2 95 06/14/22 19:19 BMI result Body Mass Index 53.1 DS: Data Data Completed and Pending Completed studies during hospitalization [Text1]: Procedures Detoxification Services for Substance Abuse Treatment (02/12/21) Insertion of Infusion Device into Right Cephalic Vein, Percutaneous Approach (02/12/21) Labs on day of discharge: Laboratory Results - last 24 hr 06/16/22 06/16/22 06/17/22 16:41 20:36 07:52 Sodium Potassium Chloride Carbon Dioxide Anion Gap BUN Creatinine Estim Creat Clear Calc Estimated GFR POC Glucose 304 H 303 H 147 H Random Glucose Calcium 06/17/22 08:15 Sodium 139 Potassium 4.7 Chloride 89 L Carbon Dioxide 37 H Anion Gap 18 BUN 60 H Creatinine 2.14 H Estim Creat Clear Calc 48.9 Estimated GFR 31 POC Glucose Random Glucose 158 H Calcium 9.7 Discharge Plan Discharge Patient Disposition: Left Against Medical Advice Discharge Diagnosis: Heart failure, renal failure Referrals: [facility] [Primary Care Provider] - 1 Week Jace Ayala MD [Physician] - 1 Week (call for appointment) Discharge Medications: No Action furosemide 40 mg tablet 40 mg PO DAILY metformin 500 mg tablet 500 mg PO BIDWM bupropion HCl 150 mg tablet sustained-release 12 hr 150 mg PO BID carvedilol 25 mg tablet 25 mg PO BID isosorbide mononitrate 30 mg tablet extended release 24 hr 90 mg PO DAILY clopidogrel 75 mg tablet 75 mg PO DAILY spironolactone 25 mg tablet 25 mg PO BID@0900,1700 amlodipine 10 mg tablet 10 mg PO BEDTIME hydralazine 100 mg tablet 100 mg PO TID omeprazole 20 mg capsule,delayed release(DR/EC) 20 mg PO DAILY@0630 losartan 100 mg tablet 150 mg PO DAILY fluticasone propionate 50 mcg/actuation spray,suspension 2 spray intranasal DAILY rosuvastatin 40 mg tablet 40 mg PO BEDTIME cholecalciferol (vitamin D3) 25 mcg (1,000 unit) tablet 1,000 unit PO DAILY calcium carbonate-vitamin D3 [Oyster Shell Calcium-Vit D3] 500 mg(1,250mg) -400 unit tablet 1 tab PO BID fluticasone propion-salmeterol [Advair Diskus] 250-50 mcg/dose blister with device 1 puff INHALATION BID clonidine HCl 0.1 mg tablet 1 tab PO DAILY albuterol sulfate 2.5 mg /3 mL (0.083 %) solution for nebulization 1 amp inhalation Q4-6H PRN (Reason: Shortness Of Breath) verapamil 240 mg tablet extended release 240 mg PO BEDTIME Spiriva with HandiHaler 18 mcg capsule, w/inhalation device 1 cap inhalation DAILY Jardiance 10 mg tablet 10 mg PO DAILY acetaminophen 650 mg tablet extended release 2 tab PO Q8H PRN (Reason: Pain (Scale Score 1-3)) melatonin 10 mg capsule 10 mg PO BEDTIME nitroglycerin 0.4 mg tablet, sublingual 0.4 mg sublingual Q5M PRN (Reason: Chest Pain) Rx Instructions: do not exceed 3 doses per episode trazodone 100 mg tablet 100 mg PO BEDTIME Senna Plus 8.6-50 mg capsule 1 tab-cap PO BID PRN (Reason: Constipation) albuterol sulfate [ProAir HFA] 90 mcg/actuation HFA aerosol inhaler 2 puff inhalation Q4H PRN (Reason: Wheezing) 30 Days Qty: 8.5 11RF methadone 10 mg/5 mL solution 35 mg PO DAILY Discharge Orders: Discharge Order (Routine); Ordered 06/17/22 Ordered By: Gregory Torres Diet: Diabetic diet Activity on Discharge: As tolerated Care Plan Goals: left AMA Health Concerns: left AMA Plan of Treatment: left AMA Assessment: Go see your doctor as soon as possible, call for appointment return to the ED any time, particulary if having issues with shortness of breath, chest pain, not voiding and others condition to don't seem normal call Dr. Ayala's office for appointment to be seen for your kidney issues
--- NOTE | 2022-06-17 14:35 | PC.NURSE ---
LATE ENTRY 1330 Pt refusing vital signs and blood sugars. States he will leave AMA. Dr Torres made aware and at bedside along with lang interpreter.
--- NOTE | 2022-06-17 14:42 | MHC.CM.PN ---
pt lrft ama
--- NOTE | 2022-06-17 15:05 | PC.NURSE ---
Pt left AMA. Verbalized understaing that he releases the hospital from any liability. IV removed with no issues. postal worker removed
== END 2022-06-17 15:06 | disposition left against medical advice (07) | DRG 194 ==
LOC: HO.ED 16:10 → HO.EDOVER 17:39 → HO.S3 19:47 → HO.EDOVER 20:25 → HO.IMC 06-11 18:08
PROVIDERS: Admitting Provider Internal Medicine; Emergency Provider Student in an Organized Health Care Education/Training Program; Visit Provider Internal Medicine
DX: I11.0 Hypertensive heart disease with heart failure (principal); N17.9 Acute kidney failure, unspecified; J44.1 Chronic obstructive pulmonary disease with (acute) exacerbation; I50.33 Acute on chronic diastolic (congestive) heart failure; E66.01 Morbid (severe) obesity due to excess calories; Z68.43 Body mass index [BMI] 50.0-59.9, adult; E78.5 Hyperlipidemia, unspecified; I16.0 Hypertensive urgency; I45.10 Unspecified right bundle-branch block; K21.9 Gastro-esophageal reflux disease without esophagitis; F11.20 Opioid dependence, uncomplicated; I50.813 Acute on chronic right heart failure; F14.10 Cocaine abuse, uncomplicated; E78.3 Hyperchylomicronemia; T50.1X5A Adverse effect of loop [high-ceiling] diuretics, initial encounter; R23.8 Other skin changes; G47.33 Obstructive sleep apnea (adult) (pediatric); F17.210 Nicotine dependence, cigarettes, uncomplicated; Z20.822 Contact with and (suspected) exposure to COVID-19; Z71.6 Tobacco abuse counseling; Z91.013 Allergy to seafood; Z88.0 Allergy status to penicillin; Z88.2 Allergy status to sulfonamides; Z88.8 Allergy status to other drugs, medicaments and biological substances; Z79.02 Long term (current) use of antithrombotics/antiplatelets; Z79.51 Long term (current) use of inhaled steroids; Z79.84 Long term (current) use of oral hypoglycemic drugs; Z79.899 Other long term (current) drug therapy
CPT/HCPCS: 36415; 71045; 80048; 80076; 80307; 81001; 82803; 82947; 83605; 83880; 84484; 85025; 85379; 87040; 87635; 93005; 93306; 94640; 99285; J1650; J1940; Q9957

== ENCOUNTER → 2022-06-24 13:06 | Outpatient (BNVA) | payer MEDICAID, SELFPAY | PROVIDERS: PCP Internal Medicine; Visit Provider Hospitalist | DX: J44.9 Chronic obstructive pulmonary disease, unspecified (principal); J30.9 Allergic rhinitis, unspecified; J98.4 Other disorders of lung; G47.33 Obstructive sleep apnea (adult) (pediatric); F17.200 Nicotine dependence, unspecified, uncomplicated; Z79.899 Other long term (current) drug therapy | CPT/HCPCS: 99212 ==

== ENCOUNTER → 2022-06-27 09:53 | Outpatient (BNVA) | payer MEDICAID, SELFPAY | PROVIDERS: PCP Internal Medicine; Visit Provider Physician Assistant | DX: M17.0 Bilateral primary osteoarthritis of knee (principal) | CPT/HCPCS: 99212; J1020 ==

== ENCOUNTER 2022-07-02 08:00 | Outpatient (RCR) | payer MEDICAID, SELFPAY | END 2022-07-10 13:30 | disposition home or self-care (01) | LOC: HO.WCC 08:00 | PROVIDERS: Visit Provider Physician Assistant | DX: E11.622 Type 2 diabetes mellitus with other skin ulcer (principal); E11.51 Type 2 diabetes mellitus with diabetic peripheral angiopathy without gangrene; I87.331 Chronic venous hypertension (idiopathic) with ulcer and inflammation of right lower extremity; L97.812 Non-pressure chronic ulcer of other part of right lower leg with fat layer exposed; I89.0 Lymphedema, not elsewhere classified; E11.40 Type 2 diabetes mellitus with diabetic neuropathy, unspecified; I11.0 Hypertensive heart disease with heart failure; I50.30 Unspecified diastolic (congestive) heart failure; E66.01 Morbid (severe) obesity due to excess calories; F17.210 Nicotine dependence, cigarettes, uncomplicated; Z79.84 Long term (current) use of oral hypoglycemic drugs; Z86.73 Personal history of transient ischemic attack (TIA), and cerebral infarction without residual deficits | CPT/HCPCS: 11042; 99212 ==

== ENCOUNTER 2022-07-22 15:37 | Emergency (ER) | payer MEDICAID, SELFPAY ==
--- NOTE | ~2022-07-22 | CT_ITS ---
EXAMINATION: CT ABDOMEN AND PELVIS WITH CONTRAST CLINICAL INFORMATION: Left-sided abdominal pain COMPARISON: None TECHNIQUE: Multidetector volumetric images were obtained from the superior aspect of the liver through the pubic symphysis following administration 85 mL of Omnipaque 350 intravenous contrast. Sagittal and coronal reformatted images were obtained on the technologist's workstation. Oral contrast: No This CT examination was performed using dose optimization techniques as appropriate, variously including the following: *Automated exposure control *Adjustment of mA and/or kV according to patient size (this includes techniques or standardized protocols for targeted exams where dose is matched to indication/reason for exam; i.e. extremities or head) *Use of iterative reconstruction technique DLP: 1471 mGy-cm FINDINGS: LUNG BASES: The visualized lung bases are unremarkable. There is a moderate-sized midline posterior herniation of fat adjustment of the esophagus and aorta.. LIVER, GALLBLADDER, AND BILIARY TREE: The liver is normal in size, shape, and attenuation. No focal hepatic lesion or biliary ductal dilatation is present. The gallbladder is unremarkable with no evidence of radiopaque gallstones, gallbladder wall thickening, or obvious pericholecystic inflammatory changes. PANCREAS: The pancreas is atrophic. SPLEEN: Unremarkable. ADRENAL GLANDS: Unremarkable. KIDNEYS AND URETERS: The kidneys are normal in size, shape, and attenuation. The 3 mm calculi is suspected in the midpole right kidney. No additional radiopaque calculi seen. There is no caliectasis or hydronephrosis. No perinephric stranding. There is a hypodense nonenhancing 4.5 cm partially exophytic cyst in upper pole right kidney there is a 7 mm exophytic hypodensity in lower pole left kidney probable cyst. No enhancing renal mass seen. BLADDER: Unremarkable. GASTROINTESTINAL TRACT: There is scattered stool and gas seen throughout the colon without distention. The small bowel loops are normal caliber. Appendix is normal caliber. No free air or free fluid seen. ABDOMINAL WALL: There is diffuse fat stranding and thickening of soft tissues anterior abdominal wall and around the umbilicus. There is no fluid collection or abscess. LYMPH NODES: Normal. VASCULAR: Unremarkable. PELVIC VISCERA: Unremarkable. OSSEOUS STRUCTURES: No aggressive lytic or sclerotic process seen. There is mild ventral spondylosis. CT/CT abdomen pelvis w IV con IMPRESSION: Anterior abdominal wall fat stranding and surrounding the umbilicus. No abscess or fluid collection seen. There is no acute intra-abdominal process seen. Mild constipation. Fleischner guidelines were followed.
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
[2022-07-22 16:21] VITALS: BP 195/100; PULSE 78; RESP 20; O2SAT 95; BMI 47.2
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
--- NOTE | 2022-07-22 16:25 | ECG_ITS ---
Test Reason : abdominal pain Blood Pressure : / mmHG Vent. Rate : 069 BPM Atrial Rate : 069 BPM P-R Int : 136 ms QRS Dur : 148 ms QT Int : 446 ms P-R-T Axes : 043 047 040 degrees QTc Int : 477 ms Normal sinus rhythm with sinus arrhythmia Right bundle branch block Abnormal ECG When compared with ECG of 10-JUN-2022 14:05, T wave inversion no longer evident in Lateral leads Referred By: Emil Alatorre Electronically Signed By:DENIZ HOOPER MD
[2022-07-22 16:35] LABS: MANUAL DIFF FLAG NO
[2022-07-22 16:40] LABS: Basophils Percent Auto 0.3 % (0-2); Eosinophils Absolute Auto 0.1 X10*3/uL (0.0-0.4); Eosinophils Percent Auto 2.1 % (0-4); Hematocrit 40.3 % (42.0-52.0); Hemoglobin 11.8 g/dl (14.0-18.0); Imm Gran Abs Auto 0.03 X10*3/uL (0.00-0.03); Imm Gran Pct Auto 0.4 % (0.0-0.4); Lymphocytes Absolute Auto 0.9 X10*3/uL (1.2-4.9); Lymphocytes Percent Auto 12.9 % (20-40); Mean Corpuscular HGB Conc 29.3 g/dl (31.0-36.0); Mean Corpuscular Hemoglobin 22.7 pg (27.0-33.0); Mean Corpuscular Volume 77.5 fL (80.0-98.0); Mean Platelet Volume 10.2 fL (9.4-12.4); Monocytes Absolute Auto 0.5 X10*3/uL (0.1-1.2); Monocytes Percent Auto 6.9 % (2-11); Neutrophils Absolute Auto 5.3 x10*3/uL (2.0-8.3); Neutrophils Percent Auto 77.4 % (45-73); Platelet Count 280 X10*3/uL (160-400); Red Cell Distribution Width 18.6 % (11.0-16.0); White Blood Count 6.8 X10*3/uL (4.8-10.8)
[2022-07-22 16:57] LABS: Alanine Aminotransferase 21 U/L (0-40); Albumin Level 3.9 g/dL (3.5-5.0); Alkaline Phosphatase 145 U/L (39-117); Anion Gap 15 (12-20); Aspartate Amino Transferase 18 U/L (5-37); Bilirubin Direct 0.2 mg/dL (0.0-0.5); Bilirubin Total 0.3 mg/dL (0.0-1.0); Blood Urea Nitrogen 14 mg/dL (9-16); Calcium 8.7 mg/dL (8.4-10.2); Carbon Dioxide 27 mmol/L (22-29); Chloride 104 mmol/L (96-108); Creatinine Clr Calc Pharmacy 96.8; Estimated Glomerular Filt Rate > 60; Glucose Random 375 mg/dL (60-115); Lipase 13 U/L (8-78); Potassium 3.8 mmol/L (3.3-5.1); Sodium 142 mmol/L (135-145); Total Protein 6.4 g/dL (6.5-8.0)
[2022-07-22] MEDS: iohexoL 350 MG/ML 100 ML INFUS..BTL IV (17:33)
[2022-07-22] MEDS: Insulin Lispro 100 UNIT/ML 3 ML VIAL 15 UNIT SUBCUT (17:42)
[2022-07-22] MEDS: 0.9 % Sodium Chloride 1,000 ML 999 ML IV (17:43)
[2022-07-22 19:08] LABS: Glucose, Whole Blood 204 mg/dL (60-115)
== END 2022-07-22 19:12 | disposition home or self-care (01) ==
PROVIDERS: Student in an Organized Health Care Education/Training Program; Emergency Provider Internal Medicine
DX: S30.1XXA Contusion of abdominal wall, initial encounter (principal); V43.52XA Car driver injured in collision with other type car in traffic accident, initial encounter; I10 Essential (primary) hypertension; E11.9 Type 2 diabetes mellitus without complications; E78.5 Hyperlipidemia, unspecified; F17.210 Nicotine dependence, cigarettes, uncomplicated; Y93.89 Activity, other specified; Y92.414 Local residential or business street as the place of occurrence of the external cause; Y99.9 Unspecified external cause status; Z79.899 Other long term (current) drug therapy; Z79.02 Long term (current) use of antithrombotics/antiplatelets; Z79.84 Long term (current) use of oral hypoglycemic drugs
CPT/HCPCS: 36415; 70450; 71046; 72125; 74177; 80048; 80076; 82947; 83690; 85025; 93005; 99284; Q9967

== ENCOUNTER 2022-09-01 11:52 | Emergency (ER) | payer MEDICAID, SELFPAY ==
--- NOTE | ~2022-09-01 | CT_ITS ---
EXAMINATION: CT HEAD WITHOUT CONTRAST CLINICAL INFORMATION: Headache. COMPARISON: CT scan of the head 07/22/2022. TECHNIQUE: Multidetector CT imaging of the head was obtained without the use of intravenous contrast. Coronal and sagittal reformatted images were generated at the technologist workstation. This CT examination was performed using dose optimization techniques as appropriate, variously including the following: *Automated exposure control *Adjustment of mA and/or kV according to patient size (this includes techniques or standardized protocols for targeted exams where dose is matched to indication/reason for exam; i.e. extremities or head) *Use of iterative reconstruction technique DLP: 763 mGy-cm. FINDINGS: There is no evidence of acute intracranial hemorrhage or territorial infarction. No abnormal mass-effect or midline shift is seen. Katz to white matter differentiation is well preserved. No extra-axial fluid collections are identified. The ventricles and sulci are commensurately prominent consistent with diffuse volume loss. There are relatively extensive areas of low attenuation in the periventricular and subcortical white matter, and in the isela most consistent with chronic microvascular ischemic changes. There is a prominent perivascular space versus lacunar infarct in the right basal ganglia. There are no acute soft tissue or osseous abnormalities. The left frontal sinus is hypoplastic and there is a small right frontal sinus. The mastoid air cells are well-aerated. There is a small retention cyst in the right sphenoid sinus. CT/CT head/brain wo IV con IMPRESSION: 1. There are no acute bleeds or territorial infarcts. No masses are demonstrated. 2. There are chronic microvascular ischemic changes and there is diffuse volume loss.
--- NOTE | ~2022-09-01 | XR_ITS ---
EXAMINATION: XR chest 2V CLINICAL INFORMATION: Chest pain COMPARISON: No prior chest x-ray available in our system for comparison at the time of this dictation. TECHNIQUE: XR chest 2V Lungs and Stephanie: Mild prominence of the pulmonary vasculature, diffuse increased interstitial lung marking and peribronchial cuffing, possibly mild congestion and/or small airway disease. Pleura: Normal. Costophrenic angles are sharp. No pneumothorax. Heart: The heart is normal in size. Mediastinum: The mediastinum is within normal limits.. Bones: Skeletal structures included are normal for patient's age. XR/XR chest 2V IMPRESSION: * Mild vascular congestion. * Mild diffuse increased interstitial lung marking and peribronchial cuffing might be small airway disease. * No dense lobar consolidation pneumonia or pleural effusion.
[2022-09-01 12:04] VITALS: BP 150/73; PULSE 53; RESP 19; TEMP 36.6; O2SAT 98; BMI 48.4
--- NOTE | 2022-09-01 12:04 | ECG_ITS ---
Test Reason : chest pain Blood Pressure : / mmHG Vent. Rate : 054 BPM Atrial Rate : 054 BPM P-R Int : 124 ms QRS Dur : 138 ms QT Int : 478 ms P-R-T Axes : 033 037 060 degrees QTc Int : 453 ms Sinus bradycardia Right bundle branch block Abnormal ECG When compared with ECG of 22-JUL-2022 16:35, No significant change was found Referred By: Oneyda Grubbs Electronically Signed By:ALFONZO WAY MD
--- NOTE | 2022-09-01 12:05 | ED_ITS ---
HPI - General Adult General Chief complaint: Chest Pain <MÓNICA Franklin - Last Filed: 09/01/22 12:06> Stated complaint: bad headache <MÓNICA Franklin - Last Filed: 09/01/22 12:06> Time Seen by Provider: 09/01/22 16:52 <MÓNICA Franklin - Last Filed: 09/01/22 12:06> Source: patient and old records reviewed <MÓNICA Marquis - Last Filed: 09/01/22 17:19> Mode of arrival: ambulatory <MÓNICA Marquis - Last Filed: 09/01/22 17:19> Limitations: no limitations <MÓNICA Marquis - Last Filed: 09/01/22 17:19> History of Present Illness HPI narrative: 61 yo male with history of?morbid obesity, ABDOULAYE on CPAP, DM2, HTN, HFpEF w/ chronic LE edema,DM, RBBB, asthma/COPD, HLD, hx diverticulitis w/ strep bacteremia in 2020, heroin abuse who presents to the ER for evaluation of left- sided headache for the last 3 days. He states is throbbing in nature and is worse behind the left eye. He denies any vision changes. He denies any fall or trauma. He initially told triage that he was having some left-sided chest pain as well which he denies to me. He states he has been compliant with all of his antihypertensives and diuretic medication. His lower extremity edema persists. He is up to see a specialist for his lower extremity swelling. Patient has been in the ER for 5 hours, when seen in the treatment room patient states his headac he is better and he wants to go home. He denies all chest pain. <MÓNICA Villareal - Last Filed: 09/01/22 17:19> MD complaint: Left-sided headache <MÓNICA Marquis - Last Filed: 09/01/22 17:19> Onset (ago): day(s) (3) <MÓNICA Marquis - Last Filed: 09/01/22 17:19> Location: head <MÓNICA Marquis - Last Filed: 09/01/22 17:19> Radiation: non-radiation <MÓNICA Marquis - Last Filed: 09/01/22 17:19> Severity: moderate <MÓNICA Marquis - Last Filed: 09/01/22 17:19> Severity scale (1-10): 5 <MÓNICA Marquis - Last Filed: 09/01/22 17:19> Quality: aching and sharp <MÓNICA Marquis - Last Filed: 09/01/22 17:19> Pain Consistency: now resolved <MÓNICA Marquis - Last Filed: 09/01/22 17:19> Relieving factors: none <MÓNICA Marquis - Last Filed: 09/01/22 17:19> Exacerbating factors: none <MÓNICA Marquis - Last Filed: 09/01/22 17:19> Associated symptoms: shortness of breath (chronic) <MÓNICA Marquis - Last Filed: 09/01/22 17:19> Treatments prior to arrival: none <MÓNICA Marquis - Last Filed: 09/01/22 17:19> Related Data Home medications: Home Medications Medication Instructions Recorded Confirmed amlodipine 10 mg tablet 10 mg PO BEDTIME 02/12/21 06/10/22 bupropion HCl 150 mg tablet,12 hr 150 mg PO BID 02/12/21 06/10/22 sustained-release calcium carbonate 500 mg-vitamin 1 tab PO BID 02/12/21 06/10/22 D3 10 mcg (400 unit) tablet (Oyster Shell Calcium-Vitamin D3) carvedilol 25 mg tablet 25 mg PO BID 02/12/21 06/10/22 cholecalciferol (vitamin D3) 25 1,000 unit PO DAILY 02/12/21 06/10/22 mcg (1,000 unit) tablet clopidogrel 75 mg tablet 75 mg PO DAILY 02/12/21 06/10/22 fluticasone propionate 50 2 spray intranasal DAILY 02/12/21 06/10/22 mcg/actuation nasal spray,suspension furosemide 40 mg tablet 40 mg PO DAILY 02/12/21 06/10/22 hydralazine 100 mg tablet 100 mg PO TID 02/12/21 06/10/22 isosorbide mononitrate 30 mg 90 mg PO DAILY 02/12/21 06/10/22 tablet,extended release 24 hr losartan 100 mg tablet 150 mg PO DAILY 02/12/21 06/10/22 metformin 500 mg tablet 500 mg PO BIDWM 02/12/21 06/10/22 omeprazole 20 mg capsule,delayed 20 mg PO DAILY@0630 02/12/21 06/10/22 release rosuvastatin 40 mg tablet 40 mg PO BEDTIME 02/12/21 06/10/22 spironolactone 25 mg tablet 25 mg PO BID@0900,1700 02/12/21 06/10/22 melatonin 10 mg capsule 10 mg PO BEDTIME 10/16/21 06/10/22 nitroglycerin 0.4 mg sublingual 0.4 mg sublingual Q5M PRN Chest 10/16/21 06/10/22 tablet Pain sennosides 8.6 mg-docusate sodium 1 tab-cap PO BID PRN Constipation 10/16/21 06/10/22 50 mg capsule (Senna Plus) trazodone 100 mg tablet 100 mg PO BEDTIME 10/16/21 06/10/22 methadone 10 mg/5 mL oral solution 35 mg PO DAILY 04/02/22 06/10/22 albuterol sulfate 2.5 mg/3 mL 1 amp inhalation Q4-6H PRN 06/08/22 06/10/22 (0.083 %) solution for nebulization Shortness Of Breath clonidine HCl 0.1 mg tablet 1 tab PO DAILY 06/08/22 06/10/22 empagliflozin 10 mg tablet 10 mg PO DAILY 06/08/22 06/10/22 (Jardiance) fluticasone 250 mcg-salmeterol 50 1 puff inhalation BID 06/08/22 06/10/22 mcg/dose blistr powdr for inhalation (Advair Diskus) tiotropium bromide 18 mcg capsule 1 cap inhalation DAILY 06/08/22 06/10/22 with inhalation device (Spiriva with HandiHaler) verapamil 240 mg tablet,extended 240 mg PO BEDTIME 06/08/22 06/10/22 release acetaminophen 650 mg 2 tab PO Q8H PRN Pain (Scale Score 06/10/22 06/10/22 tablet,extended release 1-3) Previous Rx's Medication Instructions Recorded albuterol sulfate 90 mcg/actuation 2 puff inhalation Q4H PRN Wheezing 10/16/21 aerosol inhaler (ProAir HFA) 30 days #8.5 grams rxwoltgocz-yzpyjmzupldud-ocxjvgrm 1 cap PO Q8H PRN headache #10 caps 09/01/22 50 mg-300 mg-40 mg capsule (Fioricet) <MÓNICA Franklin - Last Filed: 09/01/22 12:06> Allergies/adverse reactions: Allergies Allergy/AdvReac Type Severity Reaction Status Date / Time crab [CRAB] Allergy Unknown ANAPHYLAXIS Verified 06/27/22 10:33 lisinopril [LISINOPRIL] Allergy Unknown cough Verified 06/27/22 10:33 Penicillins [PCN] Allergy Unknown RASH Verified 06/27/22 10:33 Sulfa (Sulfonamide Allergy Unknown RASH Verified 06/27/22 10:33 Antibiotics) [SULFA (SULFONAMIDE ANTIBIOTICS)] <MÓNICA Franklin - Last Filed: 09/01/22 12:06> Review of Systems Review of Systems: Yes all other systems are reviewed and are negative <MÓNICA Marquis - Last Filed: 09/01/22 17:19> [facility] Past Medical History Medical History: Medical History Asthma Chronic allergic rhinitis Chronic restrictive lung disease Cocaine abuse Congestive heart failure COPD (chronic obstructive pulmonary disease) Coronary artery disease Diabetes Hyperlipidemia Hypertension Normocytic anemia Obesity Obstructive sleep apnea Opioid abuse Pulmonary nodule Smoker Streptococcal bacteremia <MÓNICA Franklin - Last Filed: 09/01/22 12:06> Surgical History: Surgical History H/O hernia repair Hx of colonoscopy <MÓNICA Franklin - Last Filed: 09/01/22 12:06> Family History Family History: Family History Father No problems noted. Mother No problems noted. <MÓNICA Franklin - Last Filed: 09/01/22 12:06> Social History Social History: Social History Household Members: None Housing: Apartment Do you presently have visiting nurse or other home services: No Alcohol intake: never Patient Tobacco Use Status: Current everyday Tobacco user Cigarette Packs Per Day: 1 Cigarettes Per Day: 20.0 Substance Use Type: Opiates Advance Directives: No Advance Directives Information Provided: No service: No Current occupational status: disabled Current occupation: Rt handed <MÓNICA Franklin Last Filed: 09/01/22 12:06> Physical Exam ED Vital Signs: Vital Signs - 24 hr 09/01/22 12:04 Temperature 98 F Pulse Rate 53 Respiratory Rate 19 Blood Pressure 150/73 H Pulse Oximetry 98 Oxygen Delivery Method Room Air BMI result Body Mass Index 48.4 <MÓNICA Franklin Last Filed: 09/01/22 12:06> Vital Signs - 24 hr 09/01/22 12:04 Temperature 98 F Pulse Rate 53 Respiratory Rate 19 Blood Pressure 150/73 H Pulse Oximetry 98 Oxygen Delivery Method Room Air BMI result Body Mass Index 48.4 <MÓNICA Marquis Last Filed: 09/01/22 17:19> Appearance: Alert. Oriented X3. No acute distress. Eyes: Pupils equal, round and reactive to light. EOMI, no nystagmus. ENT: Pharynx normal. Neck: Normal inspection. Neck supple. Non-tender. normal ROM CVS: Normal heart rate and rhythm. Pulses normal. Respiratory: No respiratory distress. Breath sounds diminished at bilateral bases. Abdomen: Obese Soft and nontender. +BS x4 Skin: Skin warm and dry. Normal skin color. Normal skin turgor. No rashes. Extremities: 3+ lower extremity edema, pitting without erythema, or warmth. no weeping. no calf tenderness. Neuro: Oriented X 3. Nonfocal, ambulates with a cane, slight limp <MÓNICA Marquis Last Filed: 09/01/22 17:19> Course Course Course Narrative: RME performed by Oneyda Grubbs PA-C. Patient is a 61 year old male presenting to the emergency department with shortness of breath, a headache, and chest pain. Labs and imaging ordered. Patient placed back in the waiting room pending results and room availability. <MÓNICA Franklin Last Filed: 09/23 12:06> Reevaluation(s) Reevaluation #1: 61 yo male with multiple comorbidities presenting with SOB, headache and chest pain. And a UA titus patient states his headache was left-sided and is now resolved. It was present for 3 days. He was not taking any igyn-hys-raiuqej medicines for it but he had been compliant with all of his prescription medications. He denied any left-sided chest pain. He does admit to chronic shortness of breath but this is unchanged. No productive cough, fever. He states his lower extremity swelling is chronic and not getting better with diuretics. He is due to see a specialist. Patient states his headache is better on its own and he wants to go home now. <MÓNICA Marquis - Last Filed: 09/01/22 17:19> Time: 16:58 <MÓNICA Marquis - Last Filed: 09/01/22 17:19> Medical Decision Making Differential Diagnosis Differential Diagnoses: The differential diagnosis associated with the presentation includes <MÓNICA Marquis - Last Filed: 09/01/22 17:19> ICH, migraine, viral syndrome, tension headache <MÓNICA Marquis - Last Filed: 09/01/22 17:19> Lab Data MDM Lab Attestation statement: I reviewed the patient's lab results. <MÓNICA Marquis - Last Filed: 09/01/22 17:19> Result Diagrams: : 09/01/22 15:26 09/01/22 15:26 <MÓNICA Franklin - Last Filed: 09/01/22 12:06> Labs: Lab Results 09/01/22 09/01/22 09/01/22 Range/Units 15:26 15:26 15:26 WBC 8.2 (4.8-10.8) X10*3/uL RBC 4.87 (4.60-5.80) X10*6/uL Hgb 10.9 L (14.0-18.0) g/dl Hct 37.1 L (42.0-52.0) % MCV 76.2 L (80.0-98.0) fL MCH 22.4 L (27.0-33.0) pg MCHC 29.4 L (31.0-36.0) g/dl RDW 17.3 H (11.0-16.0) % Plt Count 269 (160-400) X10*3/uL MPV 11.2 (9.4-12.4) fL Immature Gran % (Auto) 0.4 (0.0-0.4) % Neut % (Auto) 70.9 (45-73) % Lymph % (Auto) 17.3 L (20-40) % [place] % (Auto) 8.1 (2-11) % Eos % (Auto) 3.1 (0-4) % Baso % (Auto) 0.2 (0-2) % Lymph # (Auto) 1.4 (1.2-4.9) X10*3/uL [place] # (Auto) 0.7 (0.1-1.2) X10*3/uL Eos # (Auto) 0.3 (0.0-0.4) X10*3/uL Baso # (Auto) 0.0 (0.0-0.2) X10*3/uL Abs Immat Gran (auto) 0.03 (0.00-0.03) X10*3/uL Absolute Neuts (auto) 5.8 (2.0-8.3) x10*3/uL Absolute Nucleated RBC 0.000 (0.0-0.012) X10*3/uL Nucleated RBC % (auto) 0.0 (0.0-0.2) /100WBC Sodium 141 (135-145) mmol/L Potassium 4.7 D (3.3-5.1) mmol/L Chloride 104 (96-108) mmol/L Carbon Dioxide 31 H (22-29) mmol/L Anion Gap 11 L (12-20) BUN 19 H (9-16) mg/dL Creatinine 1.14 (0.5-1.4) mg/dL Estim Creat Clear Calc 86.9 Estimated GFR > 60 Random Glucose 304 H (60-115) mg/dL Calcium 9.1 (8.4-10.2) mg/dL Magnesium 2.0 (1.6-2.6) mg/dL Total Bilirubin 0.6 (0.0-1.0) mg/dL AST 13 (5-37) U/L ALT 18 (0-40) U/L Alkaline Phosphatase 130 H (39-117) U/L Troponin I High Sens 15.6 (<3.5-35.0) ng/L B-Natriuretic Peptide (<100) pg/mL Total Protein 5.9 L (6.5-8.0) g/dL Albumin 3.7 (3.5-5.0) g/dL Influenza Type A (PCR) (Negative) Influenza Type B (PCR) (Negative) RSV RNA Qual (PCR) (Negative) SARS-CoV-2 RNA (RT-PCR) (Negative) 09/01/22 09/01/22 Range/Units 15:26 15:26 WBC (4.8-10.8) X10*3/uL RBC (4.60-5.80) X10*6/uL Hgb (14.0-18.0) g/dl Hct (42.0-52.0) % MCV (80.0-98.0) fL MCH (27.0-33.0) pg MCHC (31.0-36.0) g/dl RDW (11.0-16.0) % Plt Count (160-400) X10*3/uL MPV (9.4-12.4) fL Immature Gran % (Auto) (0.0-0.4) % Neut % (Auto) (45-73) % Lymph % (Auto) (20-40) % [place] % (Auto) (2-11) % Eos % (Auto) (0-4) % Baso % (Auto) (0-2) % Lymph # (Auto) (1.2-4.9) X10*3/uL [place] # (Auto) (0.1-1.2) X10*3/uL Eos # (Auto) (0.0-0.4) X10*3/uL Baso # (Auto) (0.0-0.2) X10*3/uL Abs Immat Gran (auto) (0.00-0.03) X10*3/uL Absolute Neuts (auto) (2.0-8.3) x10*3/uL Absolute Nucleated RBC (0.0-0.012) X10*3/uL Nucleated RBC % (auto) (0.0-0.2) /100WBC Sodium (135-145) mmol/L Potassium (3.3-5.1) mmol/L Chloride (96-108) mmol/L Carbon Dioxide (22-29) mmol/L Anion Gap (12-20) BUN (9-16) mg/dL Creatinine (0.5-1.4) mg/dL Estim Creat Clear Calc Estimated GFR Random Glucose (60-115) mg/dL Calcium (8.4-10.2) mg/dL Magnesium (1.6-2.6) mg/dL Total Bilirubin (0.0-1.0) mg/dL AST (5-37) U/L ALT (0-40) U/L Alkaline Phosphatase (39-117) U/L Troponin I High Sens (<3.5-35.0) ng/L B-Natriuretic Peptide 261 H (<100) pg/mL Total Protein (6.5-8.0) g/dL Albumin (3.5-5.0) g/dL Influenza Type A (PCR) NEGATIVE (Negative) Influenza Type B (PCR) NEGATIVE (Negative) RSV RNA Qual (PCR) NEGATIVE (Negative) SARS-CoV-2 RNA (RT-PCR) NEGATIVE (Negative) <MÓNICA Franklin - Last Filed: 09/01/22 12:06> Lab Results 09/01/22 09/01/22 09/01/22 Range/Units 15:26 15:26 15:26 WBC 8.2 (4.8-10.8) X10*3/uL RBC 4.87 (4.60-5.80) X10*6/uL Hgb 10.9 L (14.0-18.0) g/dl Hct 37.1 L (42.0-52.0) % MCV 76.2 L (80.0-98.0) fL MCH 22.4 L (27.0-33.0) pg MCHC 29.4 L (31.0-36.0) g/dl RDW 17.3 H (11.0-16.0) % Plt Count 269 (160-400) X10*3/uL MPV 11.2 (9.4-12.4) fL Immature Gran % (Auto) 0.4 (0.0-0.4) % Neut % (Auto) 70.9 (45-73) % Lymph % (Auto) 17.3 L (20-40) % [place] % (Auto) 8.1 (2-11) % Eos % (Auto) 3.1 (0-4) % Baso % (Auto) 0.2 (0-2) % Lymph # (Auto) 1.4 (1.2-4.9) X10*3/uL [place] # (Auto) 0.7 (0.1-1.2) X10*3/uL Eos # (Auto) 0.3 (0.0-0.4) X10*3/uL Baso # (Auto) 0.0 (0.0-0.2) X10*3/uL Abs Immat Gran (auto) 0.03 (0.00-0.03) X10*3/uL Absolute Neuts (auto) 5.8 (2.0-8.3) x10*3/uL Absolute Nucleated RBC 0.000 (0.0-0.012) X10*3/uL Nucleated RBC % (auto) 0.0 (0.0-0.2) /100WBC Sodium 141 (135-145) mmol/L Potassium 4.7 D (3.3-5.1) mmol/L Chloride 104 (96-108) mmol/L Carbon Dioxide 31 H (22-29) mmol/L Anion Gap 11 L (12-20) BUN 19 H (9-16) mg/dL Creatinine 1.14 (0.5-1.4) mg/dL Estim Creat Clear Calc 86.9 Estimated GFR > 60 Random Glucose 304 H (60-115) mg/dL Calcium 9.1 (8.4-10.2) mg/dL Magnesium 2.0 (1.6-2.6) mg/dL Total Bilirubin 0.6 (0.0-1.0) mg/dL AST 13 (5-37) U/L ALT 18 (0-40) U/L Alkaline Phosphatase 130 H (39-117) U/L Troponin I High Sens 15.6 (<3.5-35.0) ng/L B-Natriuretic Peptide (<100) pg/mL Total Protein 5.9 L (6.5-8.0) g/dL Albumin 3.7 (3.5-5.0) g/dL Influenza Type A (PCR) (Negative) Influenza Type B (PCR) (Negative) RSV RNA Qual (PCR) (Negative) SARS-CoV-2 RNA (RT-PCR) (Negative) 09/01/22 09/01/22 Range/Units 15:26 15:26 WBC (4.8-10.8) X10*3/uL RBC (4.60-5.80) X10*6/uL Hgb (14.0-18.0) g/dl Hct (42.0-52.0) % MCV (80.0-98.0) fL MCH (27.0-33.0) pg MCHC (31.0-36.0) g/dl RDW (11.0-16.0) % Plt Count (160-400) X10*3/uL MPV (9.4-12.4) fL Immature Gran % (Auto) (0.0-0.4) % Neut % (Auto) (45-73) % Lymph % (Auto) (20-40) % [place] % (Auto) (2-11) % Eos % (Auto) (0-4) % Baso % (Auto) (0-2) % Lymph # (Auto) (1.2-4.9) X10*3/uL [place] # (Auto) (0.1-1.2) X10*3/uL Eos # (Auto) (0.0-0.4) X10*3/uL Baso # (Auto) (0.0-0.2) X10*3/uL Abs Immat Gran (auto) (0.00-0.03) X10*3/uL Absolute Neuts (auto) (2.0-8.3) x10*3/uL Absolute Nucleated RBC (0.0-0.012) X10*3/uL Nucleated RBC % (auto) (0.0-0.2) /100WBC Sodium (135-145) mmol/L Potassium (3.3-5.1) mmol/L Chloride (96-108) mmol/L Carbon Dioxide (22-29) mmol/L Anion Gap (12-20) BUN (9-16) mg/dL Creatinine (0.5-1.4) mg/dL Estim Creat Clear Calc Estimated GFR Random Glucose (60-115) mg/dL Calcium (8.4-10.2) mg/dL Magnesium (1.6-2.6) mg/dL Total Bilirubin (0.0-1.0) mg/dL AST (5-37) U/L ALT (0-40) U/L Alkaline Phosphatase (39-117) U/L Troponin I High Sens (<3.5-35.0) ng/L B-Natriuretic Peptide 261 H (<100) pg/mL Total Protein (6.5-8.0) g/dL Albumin (3.5-5.0) g/dL Influenza Type A (PCR) NEGATIVE (Negative) Influenza Type B (PCR) NEGATIVE (Negative) RSV RNA Qual (PCR) NEGATIVE (Negative) SARS-CoV-2 RNA (RT-PCR) NEGATIVE (Negative) <MÓNICA Marquis - Last Filed: 09/01/22 17:19> Independent Interpretation I performed an independent interpretation of an: EKG and Plain X-Ray <MÓNICA Marquis - Last Filed: 09/01/22 17:19> Interpretation: personally viewed and independently interpreted cxr - vascular congestion, trace fluid in fissue on right, no overt pulm edema, largely unchanged from prior cxr in nov ekg with sinus brtadycardia, RBBB, HR 54 bpm, no significant change from prior <MÓNICA Marquis - Last Filed: 09/01/22 17:19> Radiology Impression Discussion of test interpretation with radiology: I have reviewed the radiologist's reading. <MÓNICA Marquis - Last Filed: 09/01/22 17:19> Radiologist Impression: cxr: ? Mild vascular congestion. Mild diffuse increased interstitial lung marking and peribronchial cuffing might be small airway disease. No dense lobar consolidation pneumonia or pleural effusion. ct head: 1. There are no acute bleeds or territorial infarcts. No masses are demonstrated. 2. There are chronic microvascular ischemic changes and there is diffuse volume loss. <MÓNICA Marquis - Last Filed: 09/01/22 17:19> External Record Review External record reviewed: Inpatient record, Outpatient record and Prior outpatient labs <MÓNICA Marquis Last Filed: 09/01/22 17:19> Prescription Management I considered prescription management with: Pain Medication <MÓNICA Marquis Last Filed: 09/01/22 17:19> pain resolved, not required <MÓNICA Marquis - Last Filed: 09/01/22 17:19> Chronic Conditions Patient?s care impacted by: Diabetes and Hypertension <MÓNICA Marquis Last Filed: 09/01/22 17:19> CHF, drug use <MÓNICA Maqruis - Last Filed: 09/01/22 17:19> Social Determinants Patient?s care significantly limited by Social Determinants of Health including: Alcoholism and drug addiction in family and Other Social Determinant of Health <MÓNICA Marquis - Last Filed: 09/01/22 17:19> heroin abuse <MÓNICA Marquis - Last Filed: 09/01/22 17:19> Critical Care Time Critical Care Time Critical Care Time: No <MÓNICA Marquis - Last Filed: 09/01/22 17:19> Discharge Plan Discharge Clinical Impression: Headache, Lower extremity edema <MÓNICA Franklin Last Filed: 09/01/22 12:06> Patient Disposition: Home, Self-Care <MÓNICA Franklin Last Filed: 09/01/22 12:06> Instructions: General Headache (ED) <MÓNICA Franklin Last Filed: 09/01/22 12:06> Additional Instructions: CT scan of your head did not show any acute abnormalities. Your chest x-ray showed ?mild vascular congestion, mild diffuse increased interstitial lung markings and peribronchial cuffing that might be small airway disease. No pneumonia or pleural effusion. Your glucose was 300. Your lower extremity swelling continues to be a problem. Recommend elevating her legs whenever possible. Recommend wearing compression stockings that go at least to the knees. Follow-up with your doctor as soon as possible. Take the prescribed medication as needed for headache. If you develop new or worsening symptoms call 911 or come back to the ER for further evaluation. <MÓNICA Franklin Last Filed: 09/01/22 12:06> Prescriptions: New qdatmxhjvj-mrkfeddzzyker-prpm [Fioricet] 50-300-40 mg capsule 1 cap PO Q8H PRN (Reason: headache) Qty: 10 0RF No Action furosemide 40 mg tablet 40 mg PO DAILY metformin 500 mg tablet 500 mg PO BIDWM bupropion HCl 150 mg tablet sustained-release 12 hr 150 mg PO BID carvedilol 25 mg tablet 25 mg PO BID isosorbide mononitrate 30 mg tablet extended release 24 hr 90 mg PO DAILY clopidogrel 75 mg tablet 75 mg PO DAILY spironolactone 25 mg tablet 25 mg PO BID@0900,1700 amlodipine 10 mg tablet 10 mg PO BEDTIME hydralazine 100 mg tablet 100 mg PO TID omeprazole 20 mg capsule,delayed release(DR/EC) 20 mg PO DAILY@0630 losartan 100 mg tablet 150 mg PO DAILY fluticasone propionate 50 mcg/actuation spray,suspension 2 spray intranasal DAILY rosuvastatin 40 mg tablet 40 mg PO BEDTIME cholecalciferol (vitamin D3) 25 mcg (1,000 unit) tablet 1,000 unit PO DAILY calcium carbonate-vitamin D3 [Oyster Shell Calcium-Vit D3] 500 mg(1,250mg) - 400 unit tablet 1 tab PO BID fluticasone propion-salmeterol [Advair Diskus] 250-50 mcg/dose blister with device 1 puff INHALATION BID clonidine HCl 0.1 mg tablet 1 tab PO DAILY albuterol sulfate 2.5 mg /3 mL (0.083 %) solution for nebulization 1 amp inhalation Q4-6H PRN (Reason: Shortness Of Breath) verapamil 240 mg tablet extended release 240 mg PO BEDTIME Spiriva with HandiHaler 18 mcg capsule, w/inhalation device 1 cap inhalation DAILY Jardiance 10 mg tablet 10 mg PO DAILY acetaminophen 650 mg tablet extended release 2 tab PO Q8H PRN (Reason: Pain (Scale Score 1-3)) melatonin 10 mg capsule 10 mg PO BEDTIME nitroglycerin 0.4 mg tablet, sublingual 0.4 mg sublingual Q5M PRN (Reason: Chest Pain) Rx Instructions: do not exceed 3 doses per episode trazodone 100 mg tablet 100 mg PO BEDTIME Senna Plus 8.6-50 mg capsule 1 tab-cap PO BID PRN (Reason: Constipation) albuterol sulfate [ProAir HFA] 90 mcg/actuation HFA aerosol inhaler 2 puff inhalation Q4H PRN (Reason: Wheezing) 30 Days Qty: 8.5 11RF methadone 10 mg/5 mL solution 35 mg PO DAILY <MÓNICA Franklin - Last Filed: 09/01/22 12:06> Interventions: ED Discharge Assessment Last Done: 09/01/22 17:15 <MÓNICA Franklin - Last Filed: 09/01/22 12:06> Discharge Date/Time: 09/01/22 17:15 <MÓNICA Franklin - Last Filed: 09/01/22 12:06>
[2022-09-01 15:34] LABS: MANUAL DIFF FLAG NO
[2022-09-01 15:39] LABS: Basophils Percent Auto 0.2 % (0-2); Eosinophils Absolute Auto 0.3 X10*3/uL (0.0-0.4); Eosinophils Percent Auto 3.1 % (0-4); Hematocrit 37.1 % (42.0-52.0); Hemoglobin 10.9 g/dl (14.0-18.0); Imm Gran Abs Auto 0.03 X10*3/uL (0.00-0.03); Imm Gran Pct Auto 0.4 % (0.0-0.4); Lymphocytes Absolute Auto 1.4 X10*3/uL (1.2-4.9); Lymphocytes Percent Auto 17.3 % (20-40); Mean Corpuscular HGB Conc 29.4 g/dl (31.0-36.0); Mean Corpuscular Hemoglobin 22.4 pg (27.0-33.0); Mean Corpuscular Volume 76.2 fL (80.0-98.0); Mean Platelet Volume 11.2 fL (9.4-12.4); Monocytes Absolute Auto 0.7 X10*3/uL (0.1-1.2); Monocytes Percent Auto 8.1 % (2-11); Neutrophils Absolute Auto 5.8 x10*3/uL (2.0-8.3); Neutrophils Percent Auto 70.9 % (45-73); Platelet Count 269 X10*3/uL (160-400); Red Blood Count 4.87 X10*6/uL (4.60-5.80); Red Cell Distribution Width 17.3 % (11.0-16.0); White Blood Count 8.2 X10*3/uL (4.8-10.8)
[2022-09-01 16:00] LABS: Alanine Aminotransferase 18 U/L (0-40); Albumin Level 3.7 g/dL (3.5-5.0); Alkaline Phosphatase 130 U/L (39-117); Anion Gap 11 (12-20); Aspartate Amino Transferase 13 U/L (5-37); Bilirubin Total 0.6 mg/dL (0.0-1.0); Blood Urea Nitrogen 19 mg/dL (9-16); Calcium 9.1 mg/dL (8.4-10.2); Carbon Dioxide 31 mmol/L (22-29); Chloride 104 mmol/L (96-108); Creatinine Clr Calc Pharmacy 86.9; Estimated Glomerular Filt Rate > 60; Glucose Random 304 mg/dL (60-115); Potassium 4.7 mmol/L (3.3-5.1); Sodium 141 mmol/L (135-145); Total Protein 5.9 g/dL (6.5-8.0)
[2022-09-01 16:03] LABS: B Type Natriuretic Peptide 261 pg/mL (<100)
[2022-09-01 16:07] LABS: Troponin-I High Sensitivity 15.6 ng/L (<3.5-35.0)
[2022-09-01 16:21] LABS: Influenza A PCR NEGATIVE (Negative); Influenza B PCR NEGATIVE (Negative); Resp Syncy Virus RNA Qual PCR NEGATIVE (Negative); SARS COV2 PCR INHOUSE NEGATIVE (Negative)
[2022-09-01 17:10] VITALS: BP 167/99; PULSE 53; RESP 16; TEMP 36.6; O2SAT 96
== END 2022-09-01 17:15 | disposition home or self-care (01) ==
PROVIDERS: Physician Assistant Medical; Emergency Provider Internal Medicine
DX: R51.9 Headache, unspecified (principal); R60.0 Localized edema; R07.89 Other chest pain; G47.33 Obstructive sleep apnea (adult) (pediatric); I10 Essential (primary) hypertension; E11.9 Type 2 diabetes mellitus without complications; F17.210 Nicotine dependence, cigarettes, uncomplicated; Z20.822 Contact with and (suspected) exposure to COVID-19; Z71.6 Tobacco abuse counseling; Z79.899 Other long term (current) drug therapy
CPT/HCPCS: 0241U; 36415; 70450; 71046; 80053; 83735; 83880; 84484; 85025; 93005; 99284

== ENCOUNTER 2022-09-10 10:07 | Outpatient (RCR) | payer MEDICAID, SELFPAY | END 2022-09-16 14:32 | disposition home or self-care (01) | LOC: HO.WCC 10:07 | PROVIDERS: Visit Provider Physician Assistant | DX: I87.2 Venous insufficiency (chronic) (peripheral) (principal); M79.89 Other specified soft tissue disorders; E11.42 Type 2 diabetes mellitus with diabetic polyneuropathy; E11.51 Type 2 diabetes mellitus with diabetic peripheral angiopathy without gangrene; F17.210 Nicotine dependence, cigarettes, uncomplicated | CPT/HCPCS: 99213 ==

== ENCOUNTER → 2022-10-01 13:10 | Outpatient (BNVA) | payer MEDICAID, SELFPAY | PROVIDERS: PCP Internal Medicine; Visit Provider Surgery Vascular Surgery | DX: I73.9 Peripheral vascular disease, unspecified (principal); E66.01 Morbid (severe) obesity due to excess calories; Z68.42 Body mass index [BMI] 45.0-49.9, adult | CPT/HCPCS: 99212 ==

== ENCOUNTER 2022-10-17 14:07 | Outpatient (REF) | payer MEDICAID, SELFPAY ==
--- NOTE | ~2022-10-17 | US_ITS ---
EXAMINATION: COLOR-FLOW DUPLEX IMAGING OF THE BILATERAL LOWER EXTREMITY ARTERIAL SYSTEM. VELOCITY MEASUREMENTS THROUGHOUT THE FEMORAL ARTERIES. CLINICAL INFORMATION: The patient is a 62 year-old man with peripheral vascular disease. Risk factors include hypertension, tobacco use and hyperlipidemia. RIGHT FEMORAL RUNOFF VELOCITIES: The right common femoral artery peak systolic velocity is 102 cm/s. The waveform is triphasic. The right profunda femoral artery peak systolic velocity is 101 cm/s. The waveform is biphasic. The right proximal superficial femoral artery peak systolic velocity is 148 cm/s. The waveform is triphasic. The right mid superficial femoral artery peak systolic velocity is 141 cm/s. The waveform is triphasic. The right distal right superficial femoral artery peak systolic velocity is 146 cm/s. The waveform is triphasic. The right popliteal peak systolic velocity is 114 cm/s. The waveform is triphasic. The right posterior tibial artery peak systolic velocity is 144 cm/s. The waveform is triphasic. LEFT FEMORAL RUNOFF VELOCITIES: The left common femoral artery peak systolic velocity is 132 cm/s. The waveform is triphasic. The right profunda femoral artery peak systolic velocity is 70 cm/s. The waveform is biphasic. The right proximal superficial femoral artery peak systolic velocity is 105 cm/s. The waveform is triphasic. The right mid superficial femoral artery peak systolic velocity is 93 cm/s. The waveform is triphasic. The right distal superficial femoral artery peak systolic velocity is 52 cm/s. The waveform is triphasic. The right popliteal artery peak systolic velocity is 134 cm/s. The waveform is triphasic. The right posterior tibial artery peak systolic velocity is 26 cm/s. The waveform is biphasic. US/US arterial duplex LE BI IMPRESSION: 1. No hemodynamically significant right lower extremity peripheral arterial disease is seen. 2. There is hemodynamic significant left infrapopliteal arterial disease. EXAMINATION: NONINVASIVE ANKLE BRACHIAL INDICES OF BOTH LOWER EXTREMITIES TECHNIQUE: Ankle-brachial indices were calculated bilaterally and PVR tracings were performed at the level of the ankles. This study was performed at rest only. FINDINGS: a) AT REST: 1. The ankle-brachial indices are: Right 1.49 and left 1.40. >0.97-1.25 = normal - no significant arterial disease. 0.75-0.96 = mild peripheral arterial disease. 0.5-0.74 = moderate peripheral arterial disease. <0.50 = severe peripheral arterial disease. 2. PVR waveforms at ankle: Abnormal. IMPRESSION: There is elevation of the bilateral lower extremity ankle-brachial indices. There is suggests atherosclerotic, noncompliant infrapopliteal vasculature.
== END 2022-10-17 14:08 | disposition home or self-care (01) ==
LOC: HO.US 14:07
PROVIDERS: Visit Provider Surgery Vascular Surgery
DX: I70.213 Atherosclerosis of native arteries of extremities with intermittent claudication, bilateral legs (principal)
CPT/HCPCS: 93925

== ENCOUNTER → 2022-10-25 13:00 | Outpatient (BNVA) | payer MEDICAID, SELFPAY | PROVIDERS: PCP Internal Medicine; Visit Provider Hospitalist | DX: J44.9 Chronic obstructive pulmonary disease, unspecified (principal); J30.9 Allergic rhinitis, unspecified; J98.4 Other disorders of lung; G47.33 Obstructive sleep apnea (adult) (pediatric); Z79.899 Other long term (current) drug therapy | CPT/HCPCS: 94618; 99212 ==

== ENCOUNTER → 2022-10-31 13:24 | Outpatient (BNVA) | payer MEDICAID, SELFPAY | PROVIDERS: PCP Internal Medicine; Visit Provider Hospitalist | DX: J44.9 Chronic obstructive pulmonary disease, unspecified (principal); J30.9 Allergic rhinitis, unspecified; J98.4 Other disorders of lung; G47.33 Obstructive sleep apnea (adult) (pediatric) | CPT/HCPCS: 99212 ==

== ENCOUNTER → 2022-11-05 15:03 | Outpatient (BNVA) | payer MEDICAID, SELFPAY | PROVIDERS: PCP Internal Medicine; Visit Provider Surgery Vascular Surgery | DX: I73.9 Peripheral vascular disease, unspecified (principal); R60.0 Localized edema | CPT/HCPCS: 99212 ==

== ENCOUNTER → 2023-01-31 13:30 | Outpatient (BNVA) | payer MEDICAID, SELFPAY | PROVIDERS: PCP Internal Medicine; Visit Provider Hospitalist | DX: J30.9 Allergic rhinitis, unspecified (principal); J44.1 Chronic obstructive pulmonary disease with (acute) exacerbation; J98.4 Other disorders of lung; G47.33 Obstructive sleep apnea (adult) (pediatric) | CPT/HCPCS: 99212 ==

== ENCOUNTER 2023-04-07 07:55 | Outpatient (RCR) | payer MEDICAID, SELFPAY ==
--- NOTE | ~2023-04-07 | XR_ITS ---
EXAMINATION: XR KNEE, LEFT CLINICAL INFORMATION: Left knee pain attention to the plateau, nonhealing wound, rule out infection, bone spur COMPARISON: Standing view of bilateral knees of 08/17/2021. Left knee 01/12/2018. TECHNIQUE: Three views of the left knee. FINDINGS: Small quadriceps enthesophyte. Moderate medial joint space narrowing. Moderate medial and posterior patellar osteophytes. Bones are diffusely demineralized. XR/XR knee LT 3V IMPRESSION: Moderate degenerative changes.
[2023-05-19 10:20] LABS: MANUAL DIFF FLAG NO
[2023-05-19 10:38] LABS: Basophils Percent Auto 0.3 % (0-2); Eosinophils Absolute Auto 0.2 X10*3/uL (0.0-0.4); Eosinophils Percent Auto 3.9 % (0-4); Hematocrit 37.2 % (42.0-52.0); Hemoglobin 10.9 g/dl (14.0-18.0); Imm Gran Abs Auto 0.01 X10*3/uL (0.00-0.03); Imm Gran Pct Auto 0.2 % (0.0-0.4); Lymphocytes Percent Auto 16.2 % (20-40); Mean Corpuscular HGB Conc 29.3 g/dl (31.0-36.0); Mean Corpuscular Hemoglobin 22.8 pg (27.0-33.0); Mean Corpuscular Volume 77.8 fL (80.0-98.0); Mean Platelet Volume 10.1 fL (9.4-12.4); Monocytes Absolute Auto 0.4 X10*3/uL (0.1-1.2); Monocytes Percent Auto 7.5 % (2-11); Neutrophils Absolute Auto 4.2 x10*3/uL (2.0-8.3); Neutrophils Percent Auto 71.9 % (45-73); Platelet Count 253 X10*3/uL (160-400); Red Blood Count 4.78 X10*6/uL (4.60-5.80); White Blood Count 5.9 X10*3/uL (4.8-10.8)
[2023-05-19 10:45] LABS: Estimated Average Glucose 157 mg/dL; Hemoglobin A1c % 7.1 % (<6.0)
[2023-05-19 11:12] LABS: Anion Gap 8 (12-20); Blood Urea Nitrogen 16 mg/dL (9-16); C Reactive Protein 0.47 mg/dL (< or = 0.50); Calcium 9.5 mg/dL (8.4-10.2); Carbon Dioxide 30 mmol/L (22-29); Chloride 108 mmol/L (96-108); Estimated Glomerular Filt Rate > 60; Glucose Random 169 mg/dL (60-115); Potassium 4.4 mmol/L (3.3-5.1); Sodium 142 mmol/L (135-145)
[2023-05-19 12:14] LABS: Erythrocyte Sedimentation Rate 10 MM/HR (0-15)
== END 2023-07-09 14:36 | disposition home or self-care (01) ==
LOC: HO.WCC 07:55
PROVIDERS: PCP Internal Medicine; Visit Provider Physician Assistant
DX: E11.622 Type 2 diabetes mellitus with other skin ulcer (principal); L97.821 Non-pressure chronic ulcer of other part of left lower leg limited to breakdown of skin; E11.51 Type 2 diabetes mellitus with diabetic peripheral angiopathy without gangrene; E11.40 Type 2 diabetes mellitus with diabetic neuropathy, unspecified; Q82.0 Hereditary lymphedema; I11.0 Hypertensive heart disease with heart failure; I50.32 Chronic diastolic (congestive) heart failure; F17.210 Nicotine dependence, cigarettes, uncomplicated; F11.21 Opioid dependence, in remission
CPT/HCPCS: 11042; 11043; 11044; 11045; 36415; 73562; 80048; 83036; 84134; 85025; 85652; 86140; 97597; 99212; 99213; 99214

== ENCOUNTER 2023-04-15 10:51 | Inpatient (IN) | payer MEDICAID, SELFPAY ==
--- NOTE | ~2023-04-15 | US_ITS ---
EXAMINATION: US VENOUS ULTRASOUND WITH DOPPLER LOWER EXTREMITY, LEFT CLINICAL INFORMATION: Extremity swelling and pain. COMPARISON: None available. TECHNIQUE: Ultrasound of the deep veins is performed from the hip to the calf with compression sonography and color and pulse Doppler assessment. Spectral analysis with color-flow imaging is performed. FINDINGS: There is normal venous compression and respiratory variation and augmented flow. The visualized common femoral vein, superficial femoral vein, profunda femoral vein, popliteal vein, and the posterior tibial vein shows no evidence of deep venous thrombosis. The peroneal vein is not seen. There is no significant popliteal fossa cyst. If the patient's symptoms persist, followup ultrasound in 5 days 7 days might be of value to exclude proximal propagation from a non-visualized calf vein. US/US venous duplex LE IMPRESSION: No evidence of deep venous thrombosis. The peroneal vein is not well seen.
[2023-04-15 11:32] VITALS: BP 102/53; PULSE 69; RESP 18; TEMP 36.7; O2SAT 92; BMI 51.4
--- NOTE | 2023-04-15 11:33 | ED_ITS ---
HPI - General Adult General Chief complaint: General Medical Stated complaint: Cellulitis L leg Time Seen by Provider: 04/15/23 16:53 Source: patient Limitations: no limitations History of Present Illness HPI narrative: 62-year-old male with history of diabetes presents with left leg swelling and pain. Symptoms started within injury to the left anterior leg due to hot water burn. Since then he has had progressive redness, swelling over the past 4 days. He also has a constant burning pain in his left leg. The pain is severe. The pain does not radiate. Worse with palpation. He does report from 1 of his wounds that he is having some discharge that is not only clear but also at times white. There have been no clear relieving features. Patient denies any chest pain or shortness of breath Related Data Home Medications Medication Instructions Recorded Confirmed amlodipine 10 mg tablet 10 mg PO BEDTIME 02/12/21 04/15/23 bupropion HCl 150 mg tablet,12 hr 150 mg PO BID 02/12/21 04/15/23 sustained-release calcium carbonate 500 mg-vitamin 1 tab PO BID 02/12/21 04/15/23 D3 10 mcg (400 unit) tablet (Oyster Shell Calcium-Vitamin D3) carvedilol 25 mg tablet 25 mg PO BID 02/12/21 04/15/23 cholecalciferol (vitamin D3) 25 1,000 unit PO DAILY 02/12/21 04/15/23 mcg (1,000 unit) tablet clopidogrel 75 mg tablet 75 mg PO DAILY 02/12/21 04/15/23 fluticasone propionate 50 2 spray intranasal DAILY 02/12/21 04/15/23 mcg/actuation nasal spray,suspension furosemide 40 mg tablet 40 mg PO BID 02/12/21 04/15/23 hydralazine 100 mg tablet 100 mg PO QID 02/12/21 04/15/23 isosorbide mononitrate 30 mg 90 mg PO DAILY 02/12/21 04/15/23 tablet,extended release 24 hr losartan 100 mg tablet 150 mg PO DAILY 02/12/21 04/15/23 metformin 500 mg tablet 500 mg PO BIDWM 02/12/21 04/15/23 omeprazole 20 mg capsule,delayed 20 mg PO DAILY@0630 02/12/21 04/15/23 release rosuvastatin 40 mg tablet 40 mg PO BEDTIME 02/12/21 04/15/23 spironolactone 25 mg tablet 25 mg PO BID@0900,1200 02/12/21 04/15/23 trazodone 100 mg tablet 200 mg PO BEDTIME 10/16/21 04/15/23 methadone 10 mg/5 mL oral solution 35 mg PO DAILY 04/02/22 06/10/22 albuterol sulfate 2.5 mg/3 mL 1 amp inhalation Q4-6H PRN 06/08/22 04/15/23 (0.083 %) solution for nebulization Shortness Of Breath clonidine HCl 0.1 mg tablet 1 tab PO DAILY 06/08/22 04/15/23 empagliflozin 10 mg tablet 10 mg PO DAILY 06/08/22 04/15/23 (Jardiance) fluticasone 250 mcg-salmeterol 50 1 puff inhalation BID 06/08/22 04/15/23 mcg/dose blistr powdr for inhalation (Advair Diskus) tiotropium bromide 18 mcg capsule 1 cap inhalation DAILY 06/08/22 04/15/23 with inhalation device (Spiriva with HandiHaler) verapamil 240 mg tablet,extended 240 mg PO BEDTIME 06/08/22 04/15/23 release acetaminophen 650 mg 2 tab PO Q8H PRN Pain (Scale Score 06/10/22 04/15/23 tablet,extended release 1-3) nebulizers 10/25/22 Oxygen Home Use 10/31/22 cefuroxime axetil 250 mg tablet 250 mg PO BID 04/15/23 04/15/23 furosemide 20 mg tablet 20 mg PO BID 04/15/23 04/15/23 loratadine 10 mg tablet 10 mg PO QAM 04/15/23 04/15/23 prazosin 5 mg capsule 5 mg PO BEDTIME 04/15/23 04/15/23 sertraline 25 mg tablet 25 mg PO QAM 04/15/23 04/15/23 Previous Rx's Medication Instructions Recorded albuterol sulfate 90 mcg/actuation 2 puff inhalation Q4H PRN Wheezing 10/16/21 aerosol inhaler (ProAir HFA) 30 days #8.5 grams [id number]-[id number]-[id number] 1 cap PO Q8H PRN headache #10 caps 09/01/22 50 mg-300 mg-40 mg capsule (Fioricet) Allergies Allergy/AdvReac Type Severity Reaction Status Date / Time crab [CRAB] Allergy Unknown ANAPHYLAXIS Verified 01/31/23 13:46 lisinopril [LISINOPRIL] Allergy Unknown cough Verified 01/31/23 13:46 Penicillins [PCN] Allergy Unknown RASH Verified 01/31/23 13:46 Sulfa (Sulfonamide Allergy Unknown RASH Verified 01/31/23 13:46 Antibiotics) [SULFA (SULFONAMIDE ANTIBIOTICS)] Review of Systems Review of Systems: CONSTITUTIONAL: Denies weight loss, fever and chills. HEENT: Denies changes in vision and hearing. RESPIRATORY: Denies SOB and cough. CV: Denies palpitations no CP. GI: Denies abdominal pain, nausea, vomiting and diarrhea. : Denies dysuria and urinary frequency. MSK: Denies myalgia and joint pain. SKIN: + rash - pruritus. NEUROLOGICAL: Denies headache and syncope. PSYCHIATRIC: Denies recent changes in mood. Denies anxiety and depression. All other ROS are negative unless in HPI PMFSH Past Medical History Medical History Asthma Chronic allergic rhinitis Chronic restrictive lung disease Cocaine abuse Congestive heart failure COPD (chronic obstructive pulmonary disease) Coronary artery disease Diabetes Hyperlipidemia Hypertension Normocytic anemia Obesity Obstructive sleep apnea Opioid abuse Osteopenia (~2016) Pulmonary nodule Smoker Streptococcal bacteremia Surgical History History of colonoscopy History of hernia repair History of orchiectomy, unilateral Family History Family History Father No problems noted. Mother No problems noted. Social History Social History Household Members: None Housing: Apartment Do you presently have visiting nurse or other home services: No Alcohol intake: never Patient Tobacco Use Status: Current everyday Tobacco user Cigarette Packs Per Day: 1 Cigarettes Per Day: 20.0 Substance Use Type: Opiates Advance Directives: No Advance Directives Information Provided: Yes service: No Current occupational status: disabled Current occupation: [employer] handed Physical Exam ED Vital Signs: Vital Signs - 24 hr 04/15/23 11:32 04/15/23 17:24 04/15/23 18:00 Temperature 98.1 F 98.4 F 98.3 F Pulse Rate 69 58 66 Respiratory Rate 18 16 16 Blood Pressure 102/53 L 104/59 L 112/43 L Pulse Oximetry 92 95 97 Oxygen Delivery Method Room Air Room Air Room Air BMI result Body Mass Index 51.4 GEN: Well developed, no acute distress, alert, oriented HEENT: Normocephalic, atraumatic, normal external ears, nose appears normal, no oropharyngeal edema or exudates Eyes: Normal to appearance Neck: Supple, no lymphadenopathy Respiratory: Talks in complete sentences, no respiratory distress, clear to auscultation bilaterally Cardiovascular: Regular rate and rhythm, no murmurs rubs or gallops Abdomen: Soft, nontender, nondistended, no guarding, no rebound Back: No CVA tenderness Extremities: No clubbing cyanosis 3+ edema Neurologic: No focal neurologic deficits, cranial nerves 2-12 intact, strength is 5/5 bilaterally Skin: left lower leg wound 4 cm wide, nopurulent drainage, serosanguanous drainage, diffuse cellulitic changes Course Course Course Narrative: This is an RME: Additional HPI, ROS, PE not included below will be deferred to primary provider. 62 year old male hx of heroin abuse, chf, copd, pad, dm presents w/ LLE pain, swelling, redness, warmth, despite PO atbx sent from wound care for ivatbx and admission Plan- labs. Reevaluation(s) Reevaluation #1: The workup is complete. He is negative for DVT. He has no evidence of severe sepsis. He is receiving intravenous antibiotics. Patient will be admitted this time. Discussed care with the hospitalist. Medications Administered Discontinued Medications Generic Name Dose Route Start Last Admin Trade Name Freq PRN Reason Stop Dose Admin Cefazolin Sodium 1 gm/ Sodium 50 mls @ 100 mls/hr 04/15/23 17:00 04/15/23 18:35 Chloride IV 04/15/23 17:29 Infused ONCE ONE Infusion Vancomycin HCl 2,000 mg in 500 mls @ 250 mls/hr 04/15/23 17:15 04/15/23 18:37 Vancomycin/Ns IV 04/15/23 19:14 250 mls/hr ONCE ONE Administration Morphine Sulfate 4 mg 04/15/23 17:32 04/15/23 18:03 Morphine Sulfate 4 Mg/Ml Cartridge IVPUSH 04/15/23 17:33 4 mg ONCE ONE Administration Protocol Medical Decision Making Medical Decision Making [facility] Narrative: 62-year-old male with multiple medical problems presents with left leg cellulitis. Quite extensive. Differential diagnosis could also include DVT. Will obtain an ultrasound to rule this out. Patient has no respiratory distress, hypoxia doubt pulmonary embolus. There is no evidence of discrete abscess. Patient does have diabetes and this does appear to be quite aggressive at this point. Will cover for MSSA and MRSA as well strep infection. He will receive Ancef vancomycin. Patient will need to be admitted for intravenous antibiotics given the extensiveness of the infection. Differential Diagnosis Differential Diagnoses: The differential diagnosis associated with the presentation includes (Cellulitis, abscess, DVT, stasis dermatitis) Cellulitis Admission/Observation Consideration of admission/observation: Escalation of care including adm ission/observation considered Consult Healthcare Provider Management of the patient was discussed with: Hospitalist Lab Data [facility] Lab Attestation statement: I reviewed the patient's lab results. 04/15/23 16:56 Labs: Lab Results 04/15/23 04/15/23 04/15/23 Range/Units 16:56 17:20 17:20 WBC 9.4 (4.8-10.8) X10*3/uL RBC 5.13 (4.60-5.80) X10*6/uL Hgb 11.6 L (14.0-18.0) g/dl Hct 39.3 L (42.0-52.0) % MCV 76.6 L (80.0-98.0) fL MCH 22.6 L (27.0-33.0) pg MCHC 29.5 L (31.0-36.0) g/dl RDW 16.2 H (11.0-16.0) % Plt Count 333 (160-400) X10*3/uL MPV 10.8 (9.4-12.4) fL Immature Gran % (Auto) 1.1 H (0.0-0.4) % Neut % (Auto) 79.2 H (45-73) % Lymph % (Auto) 9.6 L (20-40) % [place] % (Auto) 8.1 (2-11) % Eos % (Auto) 1.7 (0-4) % Baso % (Auto) 0.3 (0-2) % Lymph # (Auto) 0.9 L (1.2-4.9) X10*3/uL [place] # (Auto) 0.8 (0.1-1.2) X10*3/uL Eos # (Auto) 0.2 (0.0-0.4) X10*3/uL Baso # (Auto) 0.0 (0.0-0.2) X10*3/uL Abs Immat Gran (auto) 0.10 H (0.00-0.03) X10*3/uL Absolute Neuts (auto) 7.4 (2.0-8.3) x10*3/uL Absolute Nucleated RBC 0.080 H (0.0-0.012) X10*3/uL Nucleated RBC % (auto) 0.9 H (0.0-0.2) /100WBC ESR (0-15) MM/HR Sodium 140 (135-145) mmol/L Potassium 4.7 (3.3-5.1) mmol/L Chloride 106 (96-108) mmol/L Carbon Dioxide 25 (22-29) mmol/L Anion Gap 14 (12-20) BUN 17 H (9-16) mg/dL Creatinine 1.04 (0.5-1.4) mg/dL Estim Creat Clear Calc 100.6 Estimated GFR > 60 Random Glucose 136 H (60-115) mg/dL Lactic Acid 1.1 (0.5-2.0) mmol/L Calcium 9.1 (8.4-10.2) mg/dL Magnesium 2.5 (1.6-2.6) mg/dL Total Bilirubin 0.5 (0.0-1.0) mg/dL AST 28 (5-37) U/L ALT 16 (0-40) U/L Alkaline Phosphatase 73 (39-117) U/L Total Creatine Kinase 38 (38-174) U/L C-Reactive Protein 17.37 H (< or = 0.50) mg/dL Total Protein 6.3 L (6.5-8.0) g/dL Albumin 3.0 L (3.5-5.0) g/dL Urine Color Urine Appearance Urine pH (5.0-9.0) Ur Specific [place] (1.005-1.025) Urine Protein (Neg-Trace) mg/dL Urine Glucose (UA) (Negative) mg/dL Urine Ketones (Negative) mg/dL Urine Blood (Negative) Urine Nitrite (Negative) Ur Leukocyte Esterase (Negative) Urine RBC (0-2) /HPF Urine WBC (0-5) /HPF Ur Squamous Epith Cells (0-2) /HPF Urine Bacteria (None Seen) Hyaline Casts (0-2) /LPF 04/15/23 04/15/23 Range/Units 17:20 17:54 WBC (4.8-10.8) X10*3/uL RBC (4.60-5.80) X10*6/uL Hgb (14.0-18.0) g/dl Hct (42.0-52.0) % MCV (80.0-98.0) fL MCH (27.0-33.0) pg MCHC (31.0-36.0) g/dl RDW (11.0-16.0) % Plt Count (160-400) X10*3/uL MPV (9.4-12.4) fL Immature Gran % (Auto) (0.0-0.4) % Neut % (Auto) (45-73) % Lymph % (Auto) (20-40) % [place] % (Auto) (2-11) % Eos % (Auto) (0-4) % Baso % (Auto) (0-2) % Lymph # (Auto) (1.2-4.9) X10*3/uL [place] # (Auto) (0.1-1.2) X10*3/uL Eos # (Auto) (0.0-0.4) X10*3/uL Baso # (Auto) (0.0-0.2) X10*3/uL Abs Immat Gran (auto) (0.00-0.03) X10*3/uL Absolute Neuts (auto) (2.0-8.3) x10*3/uL Absolute Nucleated RBC (0.0-0.012) X10*3/uL Nucleated RBC % (auto) (0.0-0.2) /100WBC ESR 29 H (0-15) MM/HR Sodium (135-145) mmol/L Potassium (3.3-5.1) mmol/L Chloride (96-108) mmol/L Carbon Dioxide (22-29) mmol/L Anion Gap (12-20) BUN (9-16) mg/dL Creatinine (0.5-1.4) mg/dL Estim Creat Clear Calc Estimated GFR Random Glucose (60-115) mg/dL Lactic Acid (0.5-2.0) mmol/L Calcium (8.4-10.2) mg/dL Magnesium (1.6-2.6) mg/dL Total Bilirubin (0.0-1.0) mg/dL AST (5-37) U/L ALT (0-40) U/L Alkaline Phosphatase (39-117) U/L Total Creatine Kinase (38-174) U/L C-Reactive Protein (< or = 0.50) mg/dL Total Protein (6.5-8.0) g/dL Albumin (3.5-5.0) g/dL Urine Color Yellow Urine Appearance Clear Urine pH 5.5 (5.0-9.0) Ur Specific [place] >= 1.030 H (1.005-1.025) Urine Protein 30 (1+) H (Neg-Trace) mg/dL Urine Glucose (UA) >=1000 H (Negative) mg/dL Urine Ketones Trace (Negative) mg/dL Urine Blood Negative (Negative) Urine Nitrite Negative (Negative) Ur Leukocyte Esterase Negative (Negative) Urine RBC 0-2 (0-2) /HPF Urine WBC 6-10 H (0-5) /HPF Ur Squamous Epith Cells 3-5 (0-2) /HPF Urine Bacteria None Seen (None Seen) Hyaline Casts 0-2 (0-2) /LPF Independent Interpretation I performed an independent interpretation of an: Ultrasound (Left lower extremity duplex: No DVT) Radiology Impression Discussion of test interpretation with radiology: I have reviewed the radiologist's reading. (No DVT) Prescription Management I considered prescription management with: Pain Medication and Antibiotic Chronic Conditions Patient?s care impacted by: Diabetes Discharge Plan Discharge Clinical Impression: Cellulitis and abscess of left leg Patient Disposition: Admitted As Inpatient
--- NOTE | 2023-04-15 13:02 | MHC.EDTECH ---
attempted to draw blood 2x. Unable to obtain blood work. Patient requests to wait for his IV to give the blood. SG
[2023-04-15 17:24] VITALS: BP 104/59; PULSE 58; RESP 16; TEMP 36.9; O2SAT 95
--- NOTE | 2023-04-15 17:24 | MHC.EDTECH ---
THIS PCT JUST ASSUMED CARE OF PATIENT ,PATIENT 2ND SETS OF BLOOD CULTURE ,CBC AND LACTIC ACID DRAWN AND SENT TO LAB ,VITALS SIGN TAKEN .
[2023-04-15 17:27] LABS: MANUAL DIFF FLAG NO
[2023-04-15 17:29] LABS: Alanine Aminotransferase 16 U/L (0-40); Alkaline Phosphatase 73 U/L (39-117); Anion Gap 14 (12-20); Aspartate Amino Transferase 28 U/L (5-37); Bilirubin Total 0.5 mg/dL (0.0-1.0); Blood Urea Nitrogen 17 mg/dL (9-16); C Reactive Protein 17.37 mg/dL (< or = 0.50); Calcium 9.1 mg/dL (8.4-10.2); Carbon Dioxide 25 mmol/L (22-29); Chloride 106 mmol/L (96-108); Creatinine Clr Calc Pharmacy 100.6; Estimated Glomerular Filt Rate > 60; Glucose Random 136 mg/dL (60-115); Magnesium 2.5 mg/dL (1.6-2.6); Potassium 4.7 mmol/L (3.3-5.1); Sodium 140 mmol/L (135-145); Total Protein 6.3 g/dL (6.5-8.0)
[2023-04-15 17:31] LABS: Appearance Urine Clear; Color Urine Yellow; Glucose Urine UA >=1000 mg/dL (Negative); Leukocyte Esterase Urine Negative (Negative); Nitrite Urine Negative (Negative); PH 5.5 (5.0-9.0); Specific Gravity - Urine >= 1.030 (1.005-1.025); UMIC TRIGGER UACC YES; Urine Blood Negative (Negative); Urine Ketones Trace mg/dL (Negative); Urine Protein 30 (1+) mg/dL (Neg-Trace)
--- NOTE | 2023-04-15 17:33 | MHC.EDTECH ---
PATIENT WAS ASSISTED INTO BED ,AND CHANGE INTO HOSPITAL ATTIRE .
[2023-04-15 17:34] LABS: Basophils Percent Auto 0.3 % (0-2); Eosinophils Absolute Auto 0.2 X10*3/uL (0.0-0.4); Eosinophils Percent Auto 1.7 % (0-4); Hematocrit 39.3 % (42.0-52.0); Hemoglobin 11.6 g/dl (14.0-18.0); Imm Gran Pct Auto 1.1 % (0.0-0.4); Lymphocytes Absolute Auto 0.9 X10*3/uL (1.2-4.9); Lymphocytes Percent Auto 9.6 % (20-40); Mean Corpuscular HGB Conc 29.5 g/dl (31.0-36.0); Mean Corpuscular Hemoglobin 22.6 pg (27.0-33.0); Mean Corpuscular Volume 76.6 fL (80.0-98.0); Mean Platelet Volume 10.8 fL (9.4-12.4); Monocytes Absolute Auto 0.8 X10*3/uL (0.1-1.2); Monocytes Percent Auto 8.1 % (2-11); NRBC Pct Auto 0.9 /100WBC (0.0-0.2); Neutrophils Absolute Auto 7.4 x10*3/uL (2.0-8.3); Neutrophils Percent Auto 79.2 % (45-73); Platelet Count 333 X10*3/uL (160-400); Red Blood Count 5.13 X10*6/uL (4.60-5.80); Red Cell Distribution Width 16.2 % (11.0-16.0); White Blood Count 9.4 X10*3/uL (4.8-10.8)
[2023-04-15 17:46] LABS: Lactic Acid 1.1 mmol/L (0.5-2.0)
[2023-04-15 18:00] VITALS: BP 112/43; PULSE 66; RESP 16; TEMP 36.8; O2SAT 97
[2023-04-15] MEDS: Morphine Sulfate 4 MG/ML CARTRIDGE IVPUSH (18:03)
--- NOTE | 2023-04-15 18:22 | PHA.MEDREC ---
Pharmacy Consult ? Medication Reconciliation Pharmacy has completed the medication reconciliation. Patient get medbox from [facility] pharmacy. Received the list pharmacy. Rosmery Eubanks, BereniceD
[2023-04-15] MEDS: vancomycin/NS 2,000 MG/500 ML PLAST..BAG 250 MG IV (18:37)
[2023-04-15 18:50] LABS: Erythrocyte Sedimentation Rate 29 MM/HR (0-15)
[2023-04-15 19:05] LABS: Bacteria Urine None Seen (None Seen); Hyaline Casts Urine 0-2 /LPF (0-2); RBC Urine 0-2 /HPF (0-2); UACC Culture Trigger YES
[2023-04-15 19:50] VITALS: BP 159/73; PULSE 61; RESP 16; TEMP 36.8; O2SAT 94
[2023-04-15] MEDS: Silver Sulfadiazine 1 % Cream 20 GM TUBE 1 APPL TOPICAL (20:08)
--- NOTE | 2023-04-15 20:18 | PM.IMHP ---
History of Present Illness Date of Service: 04/15/23 Attending physician on admission: Delonte Stiles Chief Complaint: leg infection 62-year-old male with asthma/COPD overlap, coronary artery disease, [id number] type 2 diabetes, hyperlipidemia, hypertension, chronic normocytic anemia, obstructive sleep apnea not yet on CPAP but using supplemental O2 at bedtime, opioid dependence on methadone who is a current everyday smoker presented to the ED earlier today for evaluation of swelling and redness of the left lower extremity ongoing for about 1 week. He states he developed ulcerations the anterior aspect of the lower legs though is unclear have the appeared. He then developed significant redness and swelling of the left lower leg with significant discomfort. On arrival, vital signs stable. No leukocytosis. Renal function and electrolyte levels normal. CRP 17.37, ESR 29. Venous duplex negative for any evidence of DVT. In the ED, received IV vancomycin and Ancef as well as morphine in Silvadene cream applied to the wound. Review of Systems Review of Systems: General: No fevers, malaise, unintentional weight loss HEENT: No blurred vision, diplopia. No sore throat, nasal congestion, rhinorrhea, sinus pain, ear pain Cardiovascular: No chest pain, palpitations, or leg edema Respiratory: No shortness of breath, wheezing, cough GI: No abdominal pain, nausea, vomiting, diarrhea, constipation, melena, hematochezia : No dysuria, hematuria, increased urinary frequency, decreased urinary output MSK: No myalgia, back pain. +redness LLE Neuro: No headaches, weakness, paresthesias Skin: No rashes or lesions [facility] Medical History (Updated 04/15/23 @ 20:41 by MÓNICA Márquez) Asthma Cellulitis of left lower extremity Chronic allergic rhinitis Chronic restrictive lung disease Cocaine abuse Congestive heart failure COPD (chronic obstructive pulmonary disease) Coronary artery disease Diabetes Hyperlipidemia Hypertension Normocytic anemia Obesity Obstructive sleep apnea Opioid abuse Osteopenia (~2016) Pulmonary nodule Smoker Streptococcal bacteremia Family History Father No problems noted. Mother No problems noted. Surgical History History of colonoscopy History of hernia repair History of orchiectomy, unilateral Social History Household Members: None Housing: Apartment Do you presently have visiting nurse or other home services: No Alcohol intake: never Patient Tobacco Use Status: Current everyday Tobacco user Cigarette Packs Per Day: 1 Cigarettes Per Day: 20.0 Substance Use Type: Opiates Advance Directives: No Advance Directives Information Provided: Yes service: No Current occupational status: disabled Current occupation: [employer] Meds Allergies Allergy/AdvReac Type Severity Reaction Status Date / Time crab [CRAB] Allergy Unknown ANAPHYLAXIS Verified 01/31/23 13:46 lisinopril [LISINOPRIL] Allergy Unknown cough Verified 01/31/23 13:46 Penicillins [PCN] Allergy Unknown RASH Verified 01/31/23 13:46 Sulfa (Sulfonamide Allergy Unknown RASH Verified 01/31/23 13:46 Antibiotics) [SULFA (SULFONAMIDE ANTIBIOTICS)] Active Medications: Current Medications Pharmacy Consult (Consult Rx Perform Med Rec) 1 each MISCELLANE ONCE PRN PRN Reason: Consult order Home Medications Medication Instructions Recorded Confirmed Last Taken Type amlodipine 10 mg tablet 10 mg PO BEDTIME 02/12/21 04/15/23 06/09/22 History bupropion HCl 150 mg tablet,12 hr 150 mg PO BID 02/12/21 04/15/23 06/10/22 History sustained-release calcium carbonate 500 mg-vitamin 1 tab PO BID 02/12/21 04/15/23 06/10/22 History D3 10 mcg (400 unit) tablet (Oyster Shell Calcium-Vitamin D3) carvedilol 25 mg tablet 25 mg PO BID 02/12/21 04/15/23 06/10/22 History cholecalciferol (vitamin D3) 25 1,000 unit PO DAILY 02/12/21 04/15/23 06/10/22 History mcg (1,000 unit) tablet clopidogrel 75 mg tablet 75 mg PO DAILY 02/12/21 04/15/23 06/10/22 History fluticasone propionate 50 2 spray intranasal DAILY 02/12/21 04/15/23 06/10/22 History mcg/actuation nasal spray,suspension furosemide 40 mg tablet 40 mg PO BID 02/12/21 04/15/23 06/10/22 History hydralazine 100 mg tablet 100 mg PO QID 02/12/21 04/15/23 06/10/22 History isosorbide mononitrate 30 mg 90 mg PO DAILY 02/12/21 04/15/23 06/10/22 History tablet,extended release 24 hr losartan 100 mg tablet 150 mg PO DAILY 02/12/21 04/15/23 06/10/22 History metformin 500 mg tablet 500 mg PO BIDWM 02/12/21 04/15/23 06/10/22 History omeprazole 20 mg capsule,delayed 20 mg PO DAILY@0630 02/12/21 04/15/23 06/10/22 History release rosuvastatin 40 mg tablet 40 mg PO BEDTIME 02/12/21 04/15/23 06/09/22 History spironolactone 25 mg tablet 25 mg PO BID@0900,1200 02/12/21 04/15/23 06/10/22 History trazodone 100 mg tablet 200 mg PO BEDTIME 10/16/21 04/15/23 06/09/22 History methadone 10 mg/5 mL oral solution 35 mg PO DAILY 04/02/22 06/10/22 06/10/22 History albuterol sulfate 2.5 mg/3 mL 1 amp inhalation Q4-6H PRN 06/08/22 04/15/23 Unknown History (0.083 %) solution for nebulization Shortness Of Breath clonidine HCl 0.1 mg tablet 1 tab PO DAILY 06/08/22 04/15/23 06/10/22 History empagliflozin 10 mg tablet 10 mg PO DAILY 06/08/22 04/15/23 06/10/22 History (Jardiance) fluticasone 250 mcg-salmeterol 50 1 puff inhalation BID 06/08/22 04/15/23 06/10/22 History mcg/dose blistr powdr for inhalation (Advair Diskus) tiotropium bromide 18 mcg capsule 1 cap inhalation DAILY 06/08/22 04/15/23 06/10/22 History with inhalation device (Spiriva with HandiHaler) verapamil 240 mg tablet,extended 240 mg PO BEDTIME 06/08/22 04/15/23 06/09/22 History release acetaminophen 650 mg 2 tab PO Q8H PRN Pain (Scale Score 06/10/22 04/15/23 Unknown History tablet,extended release 1-3) nebulizers 10/25/22 Unknown History Oxygen Home Use 10/31/22 Unknown History cefuroxime axetil 250 mg tablet 250 mg PO BID 04/15/23 04/15/23 Unknown History furosemide 20 mg tablet 20 mg PO BID 04/15/23 04/15/23 Unknown History loratadine 10 mg tablet 10 mg PO QAM 04/15/23 04/15/23 Unknown History prazosin 5 mg capsule 5 mg PO BEDTIME 04/15/23 04/15/23 Unknown History sertraline 25 mg tablet 25 mg PO QAM 04/15/23 04/15/23 Unknown History Physical Exam Vital Signs and Narrative: Vital Signs: Last Vital Signs Temp 98.2 F 04/15/23 19:50 Pulse 61 04/15/23 19:50 Resp 16 04/15/23 19:50 BP 159/73 H 04/15/23 19:50 Pulse Ox 94 04/15/23 19:50 O2 Del Method Room Air 04/15/23 19:50 BMI result Body Mass Index 51.4 Constitutional - Awake and Alert, No apparent distress Eyes - PERRLA, EOMI Cardiovascular - S1S2, RRR, No edema Respiratory - Normal lung expansion, Normal respiratory effort, No respiratory distress, CTA bilaterally Gastrointestinal - NT / ND; +BS; No rebound or guarding Extremities - no calf tenderness bilaterally. Signfiicant swelling LLE with erythema and wamrth. There are shallow ulcerations with minimal bleeding on the anterior lower leg and dry shallow ulceration posterior LLE Skin - Warm/Dry Neurological - Alert & oriented x3 Psychological - Appropriate affect Results Labs 04/15/23 17:20 04/15/23 16:56 Labs: Laboratory Results - last 24 hr 04/15/23 04/15/23 04/15/23 16:56 17:20 17:20 MCV 76.6 L MCH 22.6 L MCHC 29.5 L RDW 16.2 H Plt Count 333 MPV 10.8 Immature Gran % (Auto) 1.1 H Neut % (Auto) 79.2 H Lymph % (Auto) 9.6 L Bollinger % (Auto) 8.1 Eos % (Auto) 1.7 Baso % (Auto) 0.3 Lymph # (Auto) 0.9 L Bollinger # (Auto) 0.8 Eos # (Auto) 0.2 Baso # (Auto) 0.0 Abs Immat Gran (auto) 0.10 H Absolute Neuts (auto) 7.4 Absolute Nucleated RBC 0.080 H Nucleated RBC % (auto) 0.9 H ESR Anion Gap 14 Estim Creat Clear Calc 100.6 Estimated GFR > 60 Random Glucose 136 H Lactic Acid 1.1 Calcium 9.1 Magnesium 2.5 Total Bilirubin 0.5 AST 28 ALT 16 Alkaline Phosphatase 73 Total Creatine Kinase 38 C-Reactive Protein 17.37 H Total Protein 6.3 L Albumin 3.0 L Urine Color Urine Appearance Urine pH Ur Specific [place] Urine Protein Urine Glucose (UA) Urine Ketones Urine Blood Urine Nitrite Ur Leukocyte Esterase Urine RBC Urine WBC Ur Squamous Epith Cells Urine Bacteria Hyaline Casts 04/15/23 04/15/23 17:20 17:54 MCV MCH MCHC RDW Plt Count MPV Immature Gran % (Auto) Neut % (Auto) Lymph % (Auto) Bollinger % (Auto) Eos % (Auto) Baso % (Auto) Lymph # (Auto) Bollinger # (Auto) Eos # (Auto) Baso # (Auto) Abs Immat Gran (auto) Absolute Neuts (auto) Absolute Nucleated RBC Nucleated RBC % (auto) ESR 29 H Anion Gap Estim Creat Clear Calc Estimated GFR Random Glucose Lactic Acid Calcium Magnesium Total Bilirubin AST ALT Alkaline Phosphatase Total Creatine Kinase C-Reactive Protein Total Protein Albumin Urine Color Yellow Urine Appearance Clear Urine pH 5.5 Ur Specific [place] >= 1.030 H Urine Protein 30 (1+) H Urine Glucose (UA) >=1000 H Urine Ketones Trace Urine Blood Negative Urine Nitrite Negative Ur Leukocyte Esterase Negative Urine RBC 0-2 Urine WBC 6-10 H Ur Squamous Epith Cells 3-5 Urine Bacteria None Seen Hyaline Casts 0-2 Imaging Radiologist's Impressions: Impressions Venous Duplex 04/15/23 18:05 IMPRESSION: No evidence of deep venous thrombosis. The peroneal vein is not well seen. Assessment and Plan (1) Cellulitis of left lower extremity: Status: Acute Plan 62-year-old male with asthma/COPD overlap, coronary artery disease, [id number] type 2 diabetes, hyperlipidemia, hypertension, chronic normocytic anemia, obstructive sleep apnea not yet on CPAP but using supplemental O2 at bedtime, opioid dependence on methadone who is a current everyday smoker admitted for extensive cellulitis LLE #Acute extensive LLE cellulitis with stage 2 venous ulcerations -IV vanco and cefepime -failed outpt abs with cefuroxime -No leukocytosis, no sepsis -Likely has underlying venous disease -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 # hypertension -BP reasonably controlled -continue home antihypertensives # ABDOULAYE with nocturnal hypoxemia -supplemental O2 at bedtime -has a cane appointment for CPAP # chronic normocytic anemia -H/H baseline, above transfusion threshold # opioid dependence -continue methadone DVT prophylaxis-heparin Full code Patient requires inpatient stay at least 2 midnights for management of acute extensive left lower extremity cellulitis requiring IV antibiotics having failed outpt abx Time Spent With Patient Time: Total time managing care of this patient today ____ minutes. Quality Stroke Does the patient have a stroke diagnosis?: No VTE Prior VTE?: No VTE Risk Level:: Medical - moderate - high VTE Device Contraindication: Treatment Not Indicated VTE Drug Contraindication: N/A - Med Ordered
[2023-04-15 20:48] VITALS: BP 143/59; PULSE 60; RESP 16; TEMP 36.9; O2SAT 94
[2023-04-15 20:55] LABS: Glucose, Whole Blood 172 mg/dL (60-115)
--- NOTE | 2023-04-15 21:02 | PHA.PROG ---
Admission Date/Time: April 15, 2023 20:10 Indication: Cellulitis Weight in k.778 kg Adjusted body weight in K.17 kg [place] body weight in K.1 kg Obesity Dosing Indication % IBW: 225% Serum Creatinine - Last 168 Hours 04/15/23 16:56 Creatinine 1.04 Estimated CrCl and GFR - Last 168 Hours 04/15/23 16:56 Estim Creat Clear Calc 100.6 Estimated GFR > 60 Vancomycin Loading Dose: 2000 mg Current Vancomycin Dosing Regimen: 1000 ng Q12H Date and Time for next Vancomycin Level to be drawn: 04/17 @ 0500 Pharmacist Comments on Vancomycin Plan: patient is morbidly obese with %IBW > 130%, therefore careful monitoring is required due to vancomycin's high volume of distribution patient received load dose vancomycin 2000 mg in the ER on 04/15 @ 1837. Maintenance dose vancomycin 1000 mg Q12H is scheduled to start 04/16 @ 0700. Expected AUC 530 with a trough of 15.6 Level with be drawn prior to 4th dose Pharmacy will monitor renal function daily Rosmery Eubanks PharmD Vancomycin dosing will take advantage of [employer] as a clinical decision support tool that uses Bayesian modeling to calculate individual patient's pharmacokinetic parameters and forecast the patient's drug concentration time course with the target goal AUC 24 range of 400 - 600 mg/L/hr.
[2023-04-15 21:38] VITALS: BP 159/71; PULSE 61; RESP 16; TEMP 36.8; O2SAT 94
[2023-04-15 22:27] LABS: Glucose, Whole Blood 155 mg/dL (60-115)
[2023-04-15] MEDS: cefEPime HCl 2 GM in 0.9 % Sodium Chloride 50 ML IV (22:34)
[2023-04-15] MEDS: amLODIPine Besylate 10 MG TABLET PO (22:35)
[2023-04-15] MEDS: Furosemide 20 MG TABLET PO (22:35)
[2023-04-15] MEDS: Furosemide 40 MG TABLET PO (22:35)
[2023-04-15] MEDS: Atorvastatin Calcium 80 MG TABLET PO (22:35)
[2023-04-15] MEDS: Prazosin HCL 5 MG CAPSULE PO (22:35)
[2023-04-15] MEDS: carvediloL 25 MG TABLET PO (22:36)
[2023-04-15] MEDS: traZODone HCL 100 MG TABLET 200 MG PO (22:36)
[2023-04-15] MEDS: VerapamiL HCL SR 240 MG TABLET.ER PO (22:36)
[2023-04-15] MEDS: Calcium + Vitamin D 250 MG TABLET 500 MG PO (22:36)
[2023-04-15] MEDS: hydrALAZINE HCl 50 MG TABLET 100 MG PO (22:36)
[2023-04-15] MEDS: Insulin Lispro 100 UNIT/ML 3 ML VIAL SUBCUT (22:36)
[2023-04-15] MEDS: Heparin Sodium,Porcine 5,000 UNIT/ML VIAL 5000 UNIT SUBCUT (22:37)
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
[2023-04-16] VITALS (8 sets, daily range): BP systolic 100–142; BP diastolic 48–80; PULSE 58–72; RESP 14–20; TEMP 36.6–37.1; O2SAT 88–93; BMI 49.3
[2023-04-16] MEDS: 0.9 % Sodium Chloride Flush 3 ML SYRINGE IVFLUSH ×4 (01:07→20:41)
--- NOTE | 2023-04-16 02:25 | PC.NURSE ---
Assumed care of patient. Primarily polish speaking, No acute distress noted. Patient resting . Vital signs stable.
[2023-04-16 05:00] LABS: MANUAL DIFF FLAG NO
[2023-04-16 05:02] LABS: Basophils Percent Auto 0.4 % (0-2); Eosinophils Absolute Auto 0.1 X10*3/uL (0.0-0.4); Eosinophils Percent Auto 1.7 % (0-4); Hematocrit 32.7 % (42.0-52.0); Hemoglobin 9.6 g/dl (14.0-18.0); Imm Gran Abs Auto 0.06 X10*3/uL (0.00-0.03); Imm Gran Pct Auto 0.7 % (0.0-0.4); Lymphocytes Absolute Auto 0.8 X10*3/uL (1.2-4.9); Lymphocytes Percent Auto 10.2 % (20-40); Mean Corpuscular HGB Conc 29.4 g/dl (31.0-36.0); Mean Corpuscular Hemoglobin 22.3 pg (27.0-33.0); Mean Corpuscular Volume 75.9 fL (80.0-98.0); Mean Platelet Volume 10.2 fL (9.4-12.4); Monocytes Absolute Auto 0.8 X10*3/uL (0.1-1.2); Monocytes Percent Auto 9.8 % (2-11); Neutrophils Absolute Auto 6.3 x10*3/uL (2.0-8.3); Neutrophils Percent Auto 77.2 % (45-73); Platelet Count 277 X10*3/uL (160-400); Red Blood Count 4.31 X10*6/uL (4.60-5.80); White Blood Count 8.1 X10*3/uL (4.8-10.8)
[2023-04-16 05:16] LABS: Anion Gap 13 (12-20); Blood Urea Nitrogen 16 mg/dL (9-16); Calcium 8.7 mg/dL (8.4-10.2); Carbon Dioxide 28 mmol/L (22-29); Chloride 106 mmol/L (96-108); Creatinine Clr Calc Pharmacy 96.9; Estimated Glomerular Filt Rate > 60; Glucose Random 140 mg/dL (60-115); Potassium 3.8 mmol/L (3.3-5.1); Sodium 143 mmol/L (135-145)
[2023-04-16 05:21] LABS: Estimated Average Glucose 177 mg/dL; Hemoglobin A1c % 7.8 %
[2023-04-16] MEDS: cefEPime HCl 2 GM in 0.9 % Sodium Chloride 50 ML IV ×3 (05:22→21:52)
[2023-04-16] MEDS: Omeprazole 20 MG CAPSULE.DR PO (05:22)
[2023-04-16] MEDS: vancomycin HCL 1,000 MG in 0.9 % Sodium Chloride 250 ML 270 MG IV (06:56)
[2023-04-16 07:24] LABS: Glucose, Whole Blood 134 mg/dL (60-115)
[2023-04-16] MEDS: Calcium + Vitamin D 250 MG TABLET 500 MG PO ×2 (09:36→20:40)
[2023-04-16] MEDS: Sertraline HCL 25 MG TABLET PO (09:37)
[2023-04-16] MEDS: Heparin Sodium,Porcine 5,000 UNIT/ML VIAL 5000 UNIT SUBCUT ×2 (09:38→20:41)
[2023-04-16] MEDS: Loratadine 10 MG TABLET PO (09:39)
[2023-04-16] MEDS: Clopidogrel Bisulfate 75 MG TABLET PO (09:39)
[2023-04-16] MEDS: cloNIDine HCL 0.1 MG TABLET PO (09:39)
[2023-04-16] MEDS: Cholecalciferol (Vitamin D3) 25 MCG TABLET PO (09:40)
[2023-04-16] MEDS: Empagliflozin 10 MG TABLET PO (09:40)
[2023-04-16] MEDS: buPROPion HCl XL 300 MG TAB.ER.24H PO (09:40)
--- NOTE | 2023-04-16 10:15 | PC.NURSE ---
serial soft bPs this AM. informed MD Packer, directed t/w to hold AM BP meds. ok to give lasix at this time after MD assessment of pt
[2023-04-16] MEDS: Furosemide 100 MG/10 ML VIAL 60 MG IVPUSH ×2 (10:16→18:31)
[2023-04-16 11:18] LABS: Glucose, Whole Blood 217 mg/dL (60-115)
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
[2023-04-16] MEDS: Fluticasone/Vilanterol 100/25 BLST.W.DEV 1 PUFF INHALE (12:07)
--- NOTE | 2023-04-16 12:11 | HO.PM.IMPN ---
Subjective Subjective Date of Service: 04/16/23 Interval History: Seen and evaluated LLE swelling, pain and erythema denies fever, chills but reports pain leg still swollen and red with tenderness Review of Systems Review of Systems: Yes all other systems are reviewed and are negative Physical Exam Vital Signs: Vital Signs: Last Vital Signs Temp 97.8 F 04/16/23 09:30 Pulse 71 04/16/23 12:07 Resp 20 04/16/23 12:07 BP 108/54 L 04/16/23 09:30 Pulse Ox 90 L 04/16/23 09:30 O2 Del Method Room Air 04/16/23 09:30 BMI result Body Mass Index 51.4 Const: Other: Constitutional : Awake, interactive, not in distress Neck : Normal inspection, Supple Cardiovascular : RRR, mild JVP, +2 lower extremity edema Respiratory : good bilateral air entry, no crackles, wheezes or rhonchi Gastrointestinal: soft, lax, Normal bowel sounds, Non tender Skin : Warm, Dry, LLE redness, swelling and tenderness above knee level with venous wound leaking clear discharge Neurological : Alert & oriented x3, No focal deficit Objective Data Active Medications Acetaminophen (Acetaminophen 325 Mg Tablet) 650 mg PO Q6H PRN PRN Reason: Pain, Mild (Pain Scale 1-3) Acetaminophen/Butalbital/Caffeine (Butalb/Acetamin/Caff 50/325/40 Tablet) 1 tab PO Q8H PRN PRN Reason: headache Albuterol Sulfate (Albuterol Sulfate (0.083%) 2.5 Mg/3 Ml Vial.Neb) 2.5 mg INHALE Q4H PRN PRN Reason: Shortness Of Breath Albuterol Sulfate (Albuterol Sulfate 90 Mcg 8 Gm Inhaler) 2 puff INHALE Q4H PRN PRN Reason: Wheezing Amlodipine Besylate (Amlodipine Besylate 10 Mg Tablet) 10 mg PO BEDTIME [facility]IE; Protocol Last Admin: 04/15/23 22:35 Dose: 10 mg Documented By: ROBYN Atorvastatin Calcium (Atorvastatin Calcium 80 Mg Tablet) 80 mg PO BEDTIME [facility] Last Admin: 04/15/23 22:35 Dose: 80 mg Documented By: ROBYN Bupropion HCl (Bupropion Hcl Xl 300 Mg Tab.Er.24h) 300 mg PO DAILY [facility] Last Admin: 04/16/23 09:40 Dose: 300 mg Documented By: CHERELLE Calcium Carbonate/Cholecalciferol (Calcium + Vitamin D 250 Mg Tablet) 500 mg PO BID [facility] Last Admin: 04/16/23 09:36 Dose: 500 mg Documented By: CHERELLE Carvedilol (Carvedilol 25 Mg Tablet) 25 mg PO BID [facility]; Protocol Last Admin: 04/16/23 09:53 Dose: Not Given Documented By: CHERELLE Non-Admin Reason: Physician Held Med Clonidine HCl (Clonidine Hcl 0.1 Mg Tablet) 0.1 mg PO DAILY [facility]; Protocol Last Admin: 04/16/23 09:39 Dose: 0.1 mg Documented By: CHERELLE Clopidogrel Bisulfate (Clopidogrel Bisulfate 75 Mg Tablet) 75 mg PO DAILY [facility] Last Admin: 04/16/23 09:39 Dose: 75 mg Documented By: CHERELLE Dextrose (Dextrose 50 % 25 Gm/50 Ml Syringe) 25 gm IVPUSH Q15M PRN; Protocol PRN Reason: per Hypoglycemia Standing Ord. Docusate Sodium (Docusate Sodium 100 Mg Capsule) 100 mg PO DAILY PRN PRN Reason: Constipation Empagliflozin (Empagliflozin 10 Mg Tablet) 10 mg PO DAILY [facility] Last Admin: 04/16/23 09:40 Dose: 10 mg Documented By: CHERELLE Fluticasone Propionate (Fluticasone Propionate Nasal 16 Gm [place]) 2 spray NOSTRIL-B DAILY [facility] Last Admin: 04/16/23 09:41 Dose: Not Given Documented By: CHERELLE Non-Admin Reason: Med Not Available Fluticasone/Vilanterol (Fluticasone/Vilanterol 100/25 Blst.W.Dev) 1 puff INHALE RDAILY [facility] Last Admin: 04/16/23 12:07 Dose: 1 puff Documented By: KEEGAN Furosemide (Furosemide 20 Mg Tablet) 20 mg PO BID [facility]; Protocol Last Admin: 04/15/23 22:35 Dose: 20 mg Documented By: ROBYN Furosemide (Furosemide 40 Mg Tablet) 40 mg PO BID [facility]; Protocol Last Admin: 04/15/23 22:35 Dose: 40 mg Documented By: ROBYN Furosemide (Furosemide 100 Mg/10 Ml Vial) 60 mg IVPUSH BID@0900,1800 [facility]; Protocol Last Admin: 04/16/23 10:16 Dose: 60 mg Documented By: CHERELLE Comments: MDed OK TO GIVE Glucose (Glucose Gel 15 Gm Gel..Gram.) 15 gm PO Q15M PRN; Protocol PRN Reason: per Hypoglycemia Standing Ord. Heparin Sodium (Porcine) (Heparin Sodium,Porcine 5,000 Unit/Ml Vial) 5,000 unit SUBCUT Q12H [facility] Last Admin: 04/16/23 09:38 Dose: 5,000 unit Documented By: CHERELLE Hydralazine HCl (Hydralazine Hcl 50 Mg Tablet) 100 mg PO QID [facility]; Protocol Last Admin: 04/16/23 09:53 Dose: Not Given Documented By: CHERELLE Non-Admin Reason: Physician Held Med Cefepime HCl 2 gm/ Sodium (Chloride) 50 mls @ 100 mls/hr IV Q8H [facility] Last Infusion: 04/16/23 06:35 Dose: 100 mls/hr Documented By: ALPA Vancomycin HCl 1,250 mg/ (Sodium Chloride) 250 mls @ 166.667 mls/hr IV Q12H [facility] Insulin Human Lispro (Insulin Lispro 100 Unit/Ml 3 Ml Vial) 0 unit SUBCUT QIDACHS [facility]; Protocol Last Admin: 04/16/23 07:22 Dose: Not Given Documented By: CHERELLE Non-Admin Reason: No Insulin Coverage Isosorbide Mononitrate (Isosorbide Mononitrate 30 Mg Tab.Er.24h) 90 mg PO DAILY [facility]; Protocol Last Admin: 04/16/23 09:54 Dose: Not Given Documented By: CHERELLE Non-Admin Reason: Physician Held Med Loratadine (Loratadine 10 Mg Tablet) 10 mg PO DAILY [facility] Last Admin: 04/16/23 09:39 Dose: 10 mg Documented By: CHERELLE Losartan Potassium (Losartan Potassium 50 Mg Tablet) 150 mg PO DAILY [facility]; Protocol Last Admin: 04/16/23 09:54 Dose: Not Given Documented By: CHERELLE Non-Admin Reason: Physician Held Med Omeprazole (Omeprazole 20 Mg Capsule.Dr) 20 mg PO DAILY@0630 [facility] Last Admin: 04/16/23 05:22 Dose: 20 mg Documented By: ALPA Ondansetron HCl (Ondansetron Hcl 4 Mg/2 Ml Vial) 4 mg IVPUSH Q8H PRN PRN Reason: Nausea and Vomiting Pharmacy Consult (Consult Rx Perform Med Rec) 1 each MISCELLANE ONCE PRN PRN Reason: Consult order Pharmacy Consult (Consult Rx Vancomycin Dosing) 1 each MISCELLANE DAILY PRN PRN Reason: Consult order Prazosin HCl (Prazosin Hcl 5 Mg Capsule) 5 mg PO BEDTIME [facility]; Protocol Last Admin: 04/15/23 22:35 Dose: 5 mg Documented By: ROBYN Sertraline HCl (Sertraline Hcl 25 Mg Tablet) 25 mg PO DAILY [facility] Last Admin: 04/16/23 09:37 Dose: 25 mg Documented By: CHERELLE Sodium Chloride (0.9 % Sodium Chloride Flush 3 Ml Syringe) 3 ml IVFLUSH QSHIFT [facility] Last Admin: 04/16/23 09:36 Dose: 3 ml Documented By: CHERELLE Spironolactone (Spironolactone 25 Mg Tablet) 25 mg PO BID@0900,1200 [facility]; Protocol Last Admin: 04/16/23 09:55 Dose: Not Given Documented By: CHERELLE Non-Admin Reason: Physician Held Med Tiotropium [place] (Tiotropium [place] 2.5 Mcg Inhaler) 2 puff INHALE RDAILY [facility] Last Admin: 04/16/23 12:07 Dose: 2 puff Documented By: KEEGAN Trazodone HCl (Trazodone Hcl 100 Mg Tablet) 200 mg PO BEDTIME [facility] Last Admin: 04/15/23 22:36 Dose: 200 mg Documented By: ROBYN Verapamil HCl (Verapamil Hcl Sr 240 Mg Tablet.Er) 240 mg PO BEDTIME [facility]; Protocol Last Admin: 04/15/23 22:36 Dose: 240 mg Documented By: ROBYN Vitamin D (Cholecalciferol (Vitamin D3) 25 Mcg Tablet) 25 mcg PO DAILY [facility] Last Admin: 04/16/23 09:40 Dose: 25 mcg Documented By: CHERELLE Labs 04/16/23 04:47 04/16/23 04:47 Labs: Laboratory Results - last 24 hr 04/15/23 04/15/23 04/15/23 16:56 17:20 17:20 MCV 76.6 L MCH 22.6 L MCHC 29.5 L RDW 16.2 H Plt Count 333 MPV 10.8 Immature Gran % (Auto) 1.1 H Neut % (Auto) 79.2 H Lymph % (Auto) 9.[address] [place] % (Auto) 8.1 Eos % (Auto) 1.7 Baso % (Auto) 0.3 Lymph # (Auto) 0.[address] [place] # (Auto) 0.8 Eos # (Auto) 0.2 Baso # (Auto) 0.0 Abs Immat Gran (auto) 0.10 H Absolute Neuts (auto) 7.4 Absolute Nucleated RBC 0.080 H Nucleated RBC % (auto) 0.9 H ESR Anion Gap 14 Estim Creat Clear Calc 100.6 Estimated GFR > 60 POC Glucose Random Glucose 136 H Estimat Average Glucose Hemoglobin A1c % Lactic Acid 1.1 Calcium 9.1 Magnesium 2.5 Total Bilirubin 0.5 AST 28 ALT 16 Alkaline Phosphatase 73 Total Creatine Kinase 38 C-Reactive Protein 17.37 H Total Protein 6.3 L Albumin 3.0 L Urine Color Urine Appearance Urine pH Ur Specific [place] Urine Protein Urine Glucose (UA) Urine Ketones Urine Blood Urine Nitrite Ur Leukocyte Esterase Urine RBC Urine WBC Ur Squamous Epith Cells Urine Bacteria Hyaline Casts 04/15/23 04/15/23 04/15/23 17:20 17:20 17:54 MCV MCH MCHC RDW Plt Count MPV Immature Gran % (Auto) Neut % (Auto) Lymph % (Auto) [place] % (Auto) Eos % (Auto) Baso % (Auto) Lymph # (Auto) [place] # (Auto) Eos # (Auto) Baso # (Auto) Abs Immat Gran (auto) Absolute Neuts (auto) Absolute Nucleated RBC Nucleated RBC % (auto) ESR 29 H Anion Gap Estim Creat Clear Calc Estimated GFR POC Glucose Random Glucose Estimat Average Glucose 177 Hemoglobin A1c % 7.8 Lactic Acid Calcium Magnesium Total Bilirubin AST ALT Alkaline Phosphatase Total Creatine Kinase C-Reactive Protein Total Protein Albumin Urine Color Yellow Urine Appearance Clear Urine pH 5.5 Ur Specific [place] >= 1.030 H Urine Protein 30 (1+) H Urine Glucose (UA) >=1000 H Urine Ketones Trace Urine Blood Negative Urine Nitrite Negative Ur Leukocyte Esterase Negative Urine RBC 0-2 Urine WBC 6-10 H Ur Squamous Epith Cells 3-5 Urine Bacteria None Seen Hyaline Casts 0-2 04/15/23 04/15/23 04/16/23 20:44 22:23 04:47 MCV 75.9 L MCH 22.3 L MCHC 29.4 L RDW 16.0 Plt Count 277 MPV 10.2 Immature Gran % (Auto) 0.7 H Neut % (Auto) 77.2 H Lymph % (Auto) 10.[address] [place] % (Auto) 9.8 Eos % (Auto) 1.7 Baso % (Auto) 0.4 Lymph # (Auto) 0.[address] [place] # (Auto) 0.8 Eos # (Auto) 0.1 Baso # (Auto) 0.0 Abs Immat Gran (auto) 0.06 H Absolute Neuts (auto) 6.3 Absolute Nucleated RBC 0.000 Nucleated RBC % (auto) 0.0 ESR Anion Gap Estim Creat Clear Calc Estimated GFR POC Glucose 172 H 155 H Random Glucose Estimat Average Glucose Hemoglobin A1c % Lactic Acid Calcium Magnesium Total Bilirubin AST ALT Alkaline Phosphatase Total Creatine Kinase C-Reactive Protein Total Protein Albumin Urine Color Urine Appearance Urine pH Ur Specific [place] Urine Protein Urine Glucose (UA) Urine Ketones Urine Blood Urine Nitrite Ur Leukocyte Esterase Urine RBC Urine WBC Ur Squamous Epith Cells Urine Bacteria Hyaline Casts 04/16/23 04/16/23 04/16/23 04:47 07:19 11:14 MCV MCH MCHC RDW Plt Count MPV Immature Gran % (Auto) Neut % (Auto) Lymph % (Auto) [place] % (Auto) Eos % (Auto) Baso % (Auto) Lymph # (Auto) [place] # (Auto) Eos # (Auto) Baso # (Auto) Abs Immat Gran (auto) Absolute Neuts (auto) Absolute Nucleated RBC Nucleated RBC % (auto) ESR Anion Gap 13 Estim Creat Clear Calc 96.9 Estimated GFR > 60 POC Glucose 134 H 217 H Random Glucose 140 H Estimat Average Glucose Hemoglobin A1c % Lactic Acid Calcium 8.7 Magnesium Total Bilirubin AST ALT Alkaline Phosphatase Total Creatine Kinase C-Reactive Protein Total Protein Albumin Urine Color Urine Appearance Urine pH Ur Specific [place] Urine Protein Urine Glucose (UA) Urine Ketones Urine Blood Urine Nitrite Ur Leukocyte Esterase Urine RBC Urine WBC Ur Squamous Epith Cells Urine Bacteria Hyaline Casts Microbiology Microbiology Results: Microbiology 04/15/23 Unknown Urine Culture - Preliminary Urine clean catch - Urine sena top No growth to date. Assessment and Plan (1) Cellulitis of left lower extremity: Status: Acute (2) Acute exacerbation of congestive heart failure: Status: Acute Plan 62-year-old male with asthma/COPD overlap, coronary artery disease, [id number] type 2 diabetes, hyperlipidemia, hypertension, chronic normocytic anemia, obstructive sleep apnea not yet on CPAP but using supplemental O2 at bedtime, opioid dependence on methadone who is a current everyday smoker admitted for extensive cellulitis LLE #Acute extensive LLE cellulitis with stage 2 venous ulcerations Pending cultures Continue IV vanco and cefepime Likely has underlying venous disease 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 Apply DEV wrap Lasix for the edema Follow cbc, cultures # Fluid overload 2/2 Acute right side heart failure last ECHO showed EF 55-60% check BNP Start IV lasix monitor I\O # [id number] type 2 diabetes A1c 7.8 diabetic diet Humalog on sliding scale, hold metformin # asthma/COPD overlap no acute exacerbation continue home inhalers, albuterol p.r.n # hypertension BP running soft add home antihypertensives as tolerated # ABDOULAYE with nocturnal hypoxemia supplemental O2 at bedtime has a cane appointment for CPAP # chronic normocytic anemia H/H baseline, above transfusion threshold # opioid dependence continue methadone DVT prophylaxis-heparin Full code Patient requires inpatient stay overnight for management of acute extensive left lower extremity cellulitis requiring IV antibiotics having failed outpt abx Time Spent With Patient Time: Total time managing care of this patient today ____ minutes. Quality Stroke Does the patient have a stroke diagnosis?: No VTE Prior VTE?: No VTE Risk Level:: Medical - moderate - high VTE Device Contraindication: Treatment Not Indicated VTE Drug Contraindication: N/A - Med Ordered
[2023-04-16] MEDS: Insulin Lispro 100 UNIT/ML 3 ML VIAL SUBCUT (12:15)
[2023-04-16] MEDS: Spironolactone 25 MG TABLET PO (13:24)
[2023-04-16 13:28] LABS: B Type Natriuretic Peptide 64 pg/mL (<100)
[2023-04-16 13:42] LABS: Thyroid Stimulating Hormone 0.29 uIU/mL (0.32-4.0)
--- NOTE | 2023-04-16 13:58 | MHC.CM.PN ---
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 CATIE DOES REPORT THAT HE HAS A PCP APPT ON 04/23 TO DISCUSS GETTING A RECLINER AND CM INSTRUCTED HIM TO CALL PRIOR OR REQEST AT APPT AN INCREASE IN PILOT SAFETY INSPECTOR HRS HE WAS ASKING CM ABOUT NEED FOR INCREASED HOURS, PT'S PILOT SAFETY INSPECTOR IS THROUGH [facility]. PT VERIFIES PCP IS DR JALLOH, [facility] X1 AND PT REPORTS CATIE BUCIO IS HIS HCP, NUMBER ON FILE IS CORRECT.
--- NOTE | 2023-04-16 15:14 | HO.WOUND ---
Wound Care Consult Reason for consult: Left and right leg wounds Consulted on a mutual patient who is being see at the [facility]. Patient was seen in the clinic 04/15 for his venous ulcers on bilateral lower legs and was sent to the ER for cellulitis of his left leg with new wounds that had appeared since his last visit on his left distal knee. At the time of the consult, the patient was in bed watching TV. Tim wrap, ABD pad removed from left distal knee wounds. Gauze and tape removed from the left posterior leg wound and also the right anterior leg wound. -Left distal knee- There is a cluster of 2 wounds measuring 3.4cm x 3.7cm x 0.1cm. Wound bed appearance is medium amount of red granulation tissue and medium amount of yellow slough/fibrin. Wound edges are well defined and attached. Surrounding tissue appearance is macerated, erythematous, ecchymotic in areas and peeling skin. Tissue temp is hot to the touch and indurated. Wounds have a large amount of serosanguineous drainage. No odor present. Wounds cleansed with sea clens wound cleanser. Zinc barrier cream applied to the periwound. Alginate ag cut to the wound sizes and applied to the wound bed. Covered with gauze, ABD pad and secured with melissa wrap. Tim wrap applied for swelling. -Left posterior lower leg- Wound measured 0.5cm x 0.7cm x 0.1cm. Wound bed appearance was all pink granulation tissue. Wound edges were defined and attached. Surrounding tissue was scarred with some maceration. Tissue temp was warm. Wound has moderate amount of serosanguineous drainage. No odor present. Wound cleansed with [place] wound cleanser. Zinc barrier cream applied to the periwound. Alginate ag cut to the wound size and applied to the wound bed. Covered with gauze and secured with melissa wrap. Tim wrap applied for swelling. - Right anterior lower leg- Wound measured 1.2cm x 1cm x 0.1cm. Wound bed appearance was all pink granulation tissue. Wound edges were defined and attached. Surrounding tissue has some scarring. Tissue temp was warm. Wound has moderate amount of serosanguineous drainage. No odor present. Wound cleansed with [place] wound cleanser. Zinc barrier cream applied to the periwound. Alginate ag cut to the wound size and applied to the wound bed. Covered with gauze and secured with melissa wrap. Tim wrap applied for swelling. Recommendation: Cleanse wounds with [place] wound cleanser or normal saline. Apply zinc barrier cream to the periwound to help with moisture on the good skin. Cut Alginate ag to the wound sizes and apply to the wound bed. Cover with gauze and/or ABD pad (depending on the drainage) and secure with melissa wrap. Apply tim wraps from the top of the toes to right below the knee with 50% overlap and retention to aid in his edema. Elevate legs as much as possible. Patient does have an upcoming appointment with the wound care center upon his discharge. If there is any questions or concerns, please feel free to reconsult wound care.
--- NOTE | 2023-04-16 16:21 | PC.NURSE ---
report to inpatient floor for assumption of care.
[2023-04-16 16:26] LABS: Glucose, Whole Blood 159 mg/dL (60-115)
[2023-04-16] MEDS: vancomycin HCL 1,250 MG in 0.9 % Sodium Chloride 250 ML 166.67 MG IV (18:31)
[2023-04-16] MEDS: VerapamiL HCL SR 240 MG TABLET.ER PO (20:40)
[2023-04-16] MEDS: hydrALAZINE HCl 50 MG TABLET PO (20:40)
[2023-04-16] MEDS: Prazosin HCL 5 MG CAPSULE PO (20:40)
[2023-04-16] MEDS: Atorvastatin Calcium 80 MG TABLET PO (20:40)
[2023-04-16] MEDS: Acetaminophen 325 MG TABLET 650 MG PO (20:40)
[2023-04-16] MEDS: traZODone HCL 100 MG TABLET 200 MG PO (20:40)
[2023-04-16] MEDS: carvediloL 25 MG TABLET PO (20:40)
[2023-04-16 21:24] LABS: Glucose, Whole Blood 141 mg/dL (60-115)
[2023-04-17 03:23] VITALS: BP 106/54; PULSE 52; RESP 19; TEMP 36.6; O2SAT 90
[2023-04-17] MEDS: cefEPime HCl 2 GM in 0.9 % Sodium Chloride 50 ML IV ×3 (06:05→22:29)
[2023-04-17] MEDS: Omeprazole 20 MG CAPSULE.DR PO (06:06)
[2023-04-17 06:53] LABS: Hematocrit 34.9 % (42.0-52.0); Hemoglobin 10.4 g/dl (14.0-18.0); Mean Corpuscular HGB Conc 29.8 g/dl (31.0-36.0); Mean Corpuscular Hemoglobin 22.6 pg (27.0-33.0); Mean Corpuscular Volume 75.9 fL (80.0-98.0); Platelet Count 282 X10*3/uL (160-400); Red Cell Distribution Width 15.9 % (11.0-16.0); White Blood Count 6.8 X10*3/uL (4.8-10.8)
[2023-04-17 07:01] LABS: Vancomycin Trough 20.3 mcg/mL (10.0-20.0)
[2023-04-17 07:02] VITALS: BP 110/60; PULSE 62; RESP 20; TEMP 36.5; O2SAT 94
[2023-04-17 07:02] LABS: Anion Gap 13 (12-20); Blood Urea Nitrogen 15 mg/dL (9-16); Calcium 8.8 mg/dL (8.4-10.2); Carbon Dioxide 32 mmol/L (22-29); Chloride 102 mmol/L (96-108); Creatinine Clr Calc Pharmacy 80.4; Estimated Glomerular Filt Rate 57; Glucose Random 191 mg/dL (60-115); Potassium 3.3 mmol/L (3.3-5.1); Sodium 144 mmol/L (135-145)
--- NOTE | 2023-04-17 07:11 | HE.PHANOTE ---
Addendum entered by Estela Loredo [facility] 04/17/23 19:14: level came back at 14. Will have dose at 750 mg Q12H. Obese model used, Predicted AUC 509 next draw will be tomorrow 04/18 @1800 Original Note: RE: vanco Trough on 04/17 came back at 20.3 mg/L; held AM dose and put in another random level for 1800. Depending on results entered new dose of 750mg Q12H with predicted AUC of 451 mg/L, trough of 15.6 mg/L.
[2023-04-17 07:23] LABS: Glucose, Whole Blood 184 mg/dL (60-115)
[2023-04-17] MEDS: Fluticasone/Vilanterol 100/25 BLST.W.DEV 1 PUFF INHALE (07:55)
[2023-04-17] MEDS: Furosemide 100 MG/10 ML VIAL 60 MG IVPUSH ×2 (07:57→17:15)
[2023-04-17] MEDS: Heparin Sodium,Porcine 5,000 UNIT/ML VIAL 5000 UNIT SUBCUT ×2 (07:58→20:20)
[2023-04-17] MEDS: Insulin Lispro 100 UNIT/ML 3 ML VIAL SUBCUT ×4 (07:58→20:38)
[2023-04-17 07:59] VITALS: PULSE 56; RESP 18; O2SAT 91
[2023-04-17] MEDS: 0.9 % Sodium Chloride Flush 3 ML SYRINGE IVFLUSH ×2 (07:59→17:15)
[2023-04-17] MEDS: Calcium + Vitamin D 250 MG TABLET 500 MG PO ×2 (08:02→20:19)
[2023-04-17] MEDS: Isosorbide Mononitrate 30 MG TAB.ER.24H 90 MG PO (08:03)
[2023-04-17] MEDS: hydrALAZINE HCl 50 MG TABLET PO ×4 (08:03→20:20)
[2023-04-17] MEDS: cloNIDine HCL 0.1 MG TABLET PO (08:04)
[2023-04-17] MEDS: carvediloL 25 MG TABLET PO ×2 (08:04→20:19)
[2023-04-17] MEDS: Loratadine 10 MG TABLET PO (08:04)
[2023-04-17] MEDS: Spironolactone 25 MG TABLET PO ×2 (08:04→11:26)
[2023-04-17] MEDS: Sertraline HCL 25 MG TABLET PO (08:04)
[2023-04-17] MEDS: Cholecalciferol (Vitamin D3) 25 MCG TABLET PO (08:05)
[2023-04-17] MEDS: Losartan Potassium 50 MG TABLET 150 MG PO (08:05)
[2023-04-17] MEDS: Empagliflozin 10 MG TABLET PO (08:05)
[2023-04-17] MEDS: Clopidogrel Bisulfate 75 MG TABLET PO (08:05)
[2023-04-17] MEDS: buPROPion HCl XL 300 MG TAB.ER.24H PO (08:05)
[2023-04-17] MEDS: Fluticasone Propionate Nasal 16 GM SPRAY 2 SPRAY NOSTRIL-B (08:27)
[2023-04-17] MEDS: Nystatin Powder 15 GM BOTTLE 1 APPL TOPICAL ×2 (09:25→20:39)
[2023-04-17 11:12] LABS: Glucose, Whole Blood 222 mg/dL (60-115)
--- NOTE | 2023-04-17 14:09 | P.PNIM_ITS ---
Subjective Subjective Date of Service: 04/17/23 Interval History: Seen and evaluated Significantly improvement in LLE swelling, pain and erythema denies fever, chills but reports pain in his leg wrapped in TIM wrap Review of Systems Review of Systems: Yes all other systems are reviewed and are negative Physical Exam Vital Signs: Vital Signs: Last Vital Signs Temp 97.7 F 04/17/23 07:02 Pulse 56 04/17/23 07:59 Resp 18 04/17/23 07:59 BP 110/60 04/17/23 07:02 Pulse Ox 94 04/17/23 07:02 O2 Del Method Nasal Cannula 04/17/23 07:02 O2 Flow Rate 2 04/17/23 07:02 BMI result Body Mass Index 49.3 Const: Other: Constitutional : Awake, interactive, not in distress Neck : Normal inspection, Supple Cardiovascular : RRR, mild JVP, +1 lower extremity edema Respiratory : good bilateral air entry, no crackles, wheezes or rhonchi Gastrointestinal: soft, lax, Normal bowel sounds, Non tender Skin : Warm, Dry, decreased LLE redness, swelling and tenderness above knee level with venous wound leaking clear discharge Neurological : Alert & oriented x3, No focal deficit Objective Data Active Medications Acetaminophen (Acetaminophen 325 Mg Tablet) 650 mg PO Q6H PRN PRN Reason: Pain, Mild (Pain Scale 1-3) Last Admin: 04/16/23 20:40 Dose: 650 mg Documented By: MORELIA Acetaminophen/Butalbital/Caffeine (Butalb/Acetamin/Caff 50/325/40 Tablet) 1 tab PO Q8H PRN PRN Reason: headache Albuterol Sulfate (Albuterol Sulfate (0.083%) 2.5 Mg/3 Ml Vial.Neb) 2.5 mg INHALE Q4H PRN PRN Reason: Shortness Of Breath Albuterol Sulfate (Albuterol Sulfate 90 Mcg 8 Gm Inhaler) 2 puff INHALE Q4H PRN PRN Reason: Wheezing Amlodipine Besylate (Amlodipine Besylate 10 Mg Tablet) 10 mg PO BEDTIME [facility]; Protocol Last Admin: 04/15/23 22:35 Dose: 10 mg Documented By: ROBYN Atorvastatin Calcium (Atorvastatin Calcium 80 Mg Tablet) 80 mg PO BEDTIME [facility] Last Admin: 04/16/23 20:40 Dose: 80 mg Documented By: MORELIA Bupropion HCl (Bupropion Hcl Xl 300 Mg Tab.Er.24h) 300 mg PO DAILY [facility] Last Admin: 04/17/23 08:05 Dose: 300 mg Documented By: SUPA Calcium Carbonate/Cholecalciferol (Calcium + Vitamin D 250 Mg Tablet) 500 mg PO BID [facility] Last Admin: 04/17/23 08:02 Dose: 500 mg Documented By: SUPA Carvedilol (Carvedilol 25 Mg Tablet) 25 mg PO BID [facility]; Protocol Last Admin: 04/17/23 08:04 Dose: 25 mg Documented By: SUPA Clonidine HCl (Clonidine Hcl 0.1 Mg Tablet) 0.1 mg PO DAILY [facility]; Protocol Last Admin: 04/17/23 08:04 Dose: 0.1 mg Documented By: SUPA Clopidogrel Bisulfate (Clopidogrel Bisulfate 75 Mg Tablet) 75 mg PO DAILY [facility] Last Admin: 04/17/23 08:05 Dose: 75 mg Documented By: SUPA Dextrose (Dextrose 50 % 25 Gm/50 Ml Syringe) 25 gm IVPUSH Q15M PRN; Protocol PRN Reason: per Hypoglycemia Standing Ord. Docusate Sodium (Docusate Sodium 100 Mg Capsule) 100 mg PO DAILY PRN PRN Reason: Constipation Empagliflozin (Empagliflozin 10 Mg Tablet) 10 mg PO DAILY [facility] Last Admin: 04/17/23 08:05 Dose: 10 mg Documented By: SUPA Fluticasone Propionate (Fluticasone Propionate Nasal 16 Gm [place]) 2 spray NOSTRIL-B DAILY [facility] Last Admin: 04/17/23 08:27 Dose: 2 spray Documented By: CHRISTINE Fluticasone/Vilanterol (Fluticasone/Vilanterol 100/25 Blst.W.Dev) 1 puff INHALE RDAILY [facility] Last Admin: 04/17/23 07:55 Dose: 1 puff Documented By: ELIZABETH Furosemide (Furosemide 20 Mg Tablet) 20 mg PO BID [facility]; Protocol Last Admin: 04/15/23 22:35 Dose: 20 mg Documented By: ROBYN Furosemide (Furosemide 40 Mg Tablet) 40 mg PO BID [facility]; Protocol Last Admin: 04/15/23 22:35 Dose: 40 mg Documented By: ROBYN Furosemide (Furosemide 100 Mg/10 Ml Vial) 60 mg IVPUSH BID@0900,1800 [facility]; Protocol Last Admin: 04/17/23 07:57 Dose: 60 mg Documented By: SUPA Glucose (Glucose Gel 15 Gm Gel..Gram.) 15 gm PO Q15M PRN; Protocol PRN Reason: per Hypoglycemia Standing Ord. Heparin Sodium (Porcine) (Heparin Sodium,Porcine 5,000 Unit/Ml Vial) 5,000 unit SUBCUT Q12H [facility] Last Admin: 04/17/23 07:58 Dose: 5,000 unit Documented By: SUPA Hydralazine HCl (Hydralazine Hcl 50 Mg Tablet) 50 mg PO QID [facility]; Protocol Last Admin: 04/17/23 13:48 Dose: 50 mg Documented By: SUPA Cefepime HCl 2 gm/ Sodium (Chloride) 50 mls @ 100 mls/hr IV Q8H [facility] Last Admin: 04/17/23 13:50 Dose: 100 mls/hr Documented By: SUPA Vancomycin HCl 750 mg/ Sodium (Chloride) 265 mls @ 265 mls/hr IV Q12H [facility] Insulin Human Lispro (Insulin Lispro 100 Unit/Ml 3 Ml Vial) 0 unit SUBCUT QIDACHS [facility]; Protocol Last Admin: 04/17/23 11:26 Dose: 4 unit Documented By: CHRISTINE Isosorbide Mononitrate (Isosorbide Mononitrate 30 Mg Tab.Er.24h) 90 mg PO DAILY [facility]; Protocol Last Admin: 04/17/23 08:03 Dose: 90 mg Documented By: SUPA Loratadine (Loratadine 10 Mg Tablet) 10 mg PO DAILY [facility] Last Admin: 04/17/23 08:04 Dose: 10 mg Documented By: SUPA Losartan Potassium (Losartan Potassium 50 Mg Tablet) 150 mg PO DAILY [facility]; Protocol Last Admin: 04/17/23 08:05 Dose: 150 mg Documented By: SUPA Morphine Sulfate (Morphine Sulfate 4 Mg/Ml Cartridge) 2 mg IVPUSH ONCE PRN; Protocol PRN Reason: Pre-Tim wrap placement Nystatin (Nystatin Powder 15 Gm Bottle) 1 appl TOPICAL BID [facility] Last Admin: 04/17/23 09:25 Dose: 1 appl Documented By: CHRISTINE Omeprazole (Omeprazole 20 Mg Capsule.Dr) 20 mg PO DAILY@0630 [facility] Last Admin: 04/17/23 06:06 Dose: 20 mg Documented By: ASHISH Ondansetron HCl (Ondansetron Hcl 4 Mg/2 Ml Vial) 4 mg IVPUSH Q8H PRN PRN Reason: Nausea and Vomiting Pharmacy Consult (Consult Rx Perform Med Rec) 1 each MISCELLANE ONCE PRN PRN Reason: Consult order Pharmacy Consult (Consult Rx Vancomycin Dosing) 1 each MISCELLANE DAILY PRN PRN Reason: Consult order Prazosin HCl (Prazosin Hcl 5 Mg Capsule) 5 mg PO BEDTIME [facility]; Protocol Last Admin: 04/16/23 20:40 Dose: 5 mg Documented By: MORELIA Sertraline HCl (Sertraline Hcl 25 Mg Tablet) 25 mg PO DAILY [facility] Last Admin: 04/17/23 08:04 Dose: 25 mg Documented By: USPA Sodium Chloride (0.9 % Sodium Chloride Flush 3 Ml Syringe) [facility] Last Admin: 04/17/23 07:59 Dose: 3 ml Documented By: SUPA Spironolactone (Spironolactone 25 Mg Tablet) 25 mg PO BID@0900,1200 [facility]; Protocol Last Admin: 04/17/23 11:26 Dose: 25 mg Documented By: CHRISTINE Tiotropium [place] (Tiotropium [place] 2.5 Mcg Inhaler) 2 puff INHALE RDAILY [facility] Last Admin: 04/17/23 07:55 Dose: 2 puff Documented By: ELIZABETH Trazodone HCl (Trazodone Hcl 100 Mg Tablet) 200 mg PO BEDTIME [facility] Last Admin: 04/16/23 20:40 Dose: 200 mg Documented By: MORELIA Verapamil HCl (Verapamil Hcl Sr 240 Mg Tablet.Er) 240 mg PO BEDTIME [facility]; Protocol Last Admin: 04/16/23 20:40 Dose: 240 mg Documented By: MORELIA Vitamin D (Cholecalciferol (Vitamin D3) 25 Mcg Tablet) 25 mcg PO DAILY [facility] Last Admin: 04/17/23 08:05 Dose: 25 mcg Documented By: SUPA Labs 04/17/23 06:28 04/17/23 06:28 Labs: Laboratory Results - last 24 hr 04/16/23 04/16/23 04/17/23 16:23 21:20 06:28 MCV MCH MCHC RDW Plt Count MPV Absolute Nucleated RBC Nucleated RBC % (auto) Anion Gap Estim Creat Clear Calc Estimated GFR POC Glucose 159 H 141 H Random Glucose Calcium Vancomycin Trough 20.3 H 04/17/23 04/17/23 04/17/23 06:28 06:28 07:07 MCV 75.9 L MCH 22.6 L MCHC 29.8 L RDW 15.9 Plt Count 282 MPV 10.0 Absolute Nucleated RBC 0.000 Nucleated RBC % (auto) 0.0 Anion Gap 13 Estim Creat Clear Calc 80.4 Estimated GFR 57 POC Glucose 184 H Random Glucose 191 H Calcium 8.8 Vancomycin Trough 04/17/23 11:03 MCV MCH MCHC RDW Plt Count MPV Absolute Nucleated RBC Nucleated RBC % (auto) Anion Gap Estim Creat Clear Calc Estimated GFR POC Glucose 222 H Random Glucose Calcium Vancomycin Trough Microbiology Microbiology Results: Microbiology 04/15/23 Unknown Urine Culture - Final Urine clean catch - Urine sena top No growth. 04/16/23 11:14 Gram Stain - Final Leg Left Routine Culture - Preliminary Culture in progress. 04/15/23 17:20 Blood Culture - Preliminary Blood - Venous No growth after 24 hours. 04/15/23 16:57 Blood Culture - Preliminary Blood - Venous No growth after 24 hours. Assessment and Plan (1) Cellulitis of left lower extremity: Status: Acute (2) Obstructive sleep apnea: Status: Acute (3) COPD (chronic obstructive pulmonary disease): Status: Acute (4) Acute on chronic right heart failure: Status: Acute Plan 62-year-old male with asthma/COPD overlap, coronary artery disease, non -insulin-dependent type 2 diabetes, hyperlipidemia, hypertension, chronic normocytic anemia, obstructive sleep apnea not yet on CPAP but using supplemental O2 at bedtime, opioid dependence on methadone who is a current everyday smoker admitted for extensive cellulitis LLE #Acute extensive LLE cellulitis with stage 2 venous ulcerations Likely has underlying venous disease and will need further eval as OP Pending cultures 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 Apply TIM wrap Lasix for the edema Follow cbc, cultures # Fluid overload 2/2 Acute on chronic right side heart failure last ECHO showed EF 55-60% normal BNP Continue IV lasix , change to PO tomorrow if euvolumic monitor I\O # [id number] type 2 diabetes A1c 7.8 diabetic diet Humalog on sliding scale, hold metformin # asthma/COPD overlap no acute exacerbation continue home inhalers, albuterol p.r.n # hypertension BP running soft add home antihypertensives as tolerated # ABDOULAYE with nocturnal hypoxemia supplemental O2 at bedtime has a cane appointment for CPAP # chronic normocytic anemia H/H baseline, above transfusion threshold # opioid dependence continue methadone DVT prophylaxis-heparin Full code Patient requires inpatient stay overnight for management of acute extensive left lower extremity cellulitis requiring IV antibiotics having failed outpt abx Time Spent With Patient Time: Total time managing care of this patient today ____ minutes. Quality Stroke Does the patient have a stroke diagnosis?: No VTE Prior VTE?: No VTE Risk Level:: Medical - moderate - high VTE Device Contraindication: Treatment Not Indicated VTE Drug Contraindication: N/A - Med Ordered
[2023-04-17 15:10] VITALS: BP 129/60; PULSE 58; RESP 18; TEMP 37.1; O2SAT 88
[2023-04-17 16:25] LABS: Glucose, Whole Blood 197 mg/dL (60-115)
[2023-04-17] MEDS: traMADoL HCL 50 MG TABLET 25 MG PO (17:16)
[2023-04-17] MEDS: vancomycin HCL 750 MG in 0.9 % Sodium Chloride 250 ML 265 MG IV (20:12)
[2023-04-17] MEDS: VerapamiL HCL SR 240 MG TABLET.ER PO (20:19)
[2023-04-17] MEDS: Prazosin HCL 5 MG CAPSULE PO (20:19)
[2023-04-17] MEDS: traZODone HCL 100 MG TABLET 200 MG PO (20:19)
[2023-04-17] MEDS: Atorvastatin Calcium 80 MG TABLET PO (20:19)
[2023-04-17 20:20] LABS: Glucose, Whole Blood 220 mg/dL (60-115)
[2023-04-17 20:23] VITALS: BP 129/58; PULSE 65; TEMP 35.8; O2SAT 93
[2023-04-17 23:24] VITALS: O2SAT 94
[2023-04-18] VITALS (7 sets, daily range): BP systolic 93–125; BP diastolic 52–63; PULSE 54–64; RESP 17–20; TEMP 36.5–37.4; O2SAT 89–94
[2023-04-18] MEDS: cefEPime HCl 2 GM in 0.9 % Sodium Chloride 50 ML IV ×3 (04:31→20:31)
[2023-04-18] MEDS: Omeprazole 20 MG CAPSULE.DR PO (05:47)
[2023-04-18 07:19] LABS: Glucose, Whole Blood 157 mg/dL (60-115)
[2023-04-18 07:21] LABS: Hematocrit 34.4 % (42.0-52.0); Hemoglobin 10.1 g/dl (14.0-18.0); Mean Corpuscular HGB Conc 29.4 g/dl (31.0-36.0); Mean Corpuscular Hemoglobin 22.3 pg (27.0-33.0); Mean Corpuscular Volume 75.9 fL (80.0-98.0); Mean Platelet Volume 10.5 fL (9.4-12.4); Platelet Count 321 X10*3/uL (160-400); Red Blood Count 4.53 X10*6/uL (4.60-5.80); Red Cell Distribution Width 15.9 % (11.0-16.0); White Blood Count 7.3 X10*3/uL (4.8-10.8)
[2023-04-18 07:36] LABS: Anion Gap 12 (12-20); Blood Urea Nitrogen 16 mg/dL (9-16); Calcium 9.5 mg/dL (8.4-10.2); Carbon Dioxide 38 mmol/L (22-29); Chloride 100 mmol/L (96-108); Creatinine Clr Calc Pharmacy 81.7; Estimated Glomerular Filt Rate 58; Glucose Random 156 mg/dL (60-115); Potassium 3.5 mmol/L (3.3-5.1); Sodium 146 mmol/L (135-145)
[2023-04-18] MEDS: Fluticasone/Vilanterol 100/25 BLST.W.DEV 1 PUFF INHALE (07:54)
[2023-04-18] MEDS: 0.9 % Sodium Chloride Flush 3 ML SYRINGE IVFLUSH ×2 (08:22→16:19)
[2023-04-18] MEDS: Calcium + Vitamin D 250 MG TABLET 500 MG PO ×2 (08:26→20:27)
[2023-04-18] MEDS: Losartan Potassium 50 MG TABLET 150 MG PO (08:26)
[2023-04-18] MEDS: Loratadine 10 MG TABLET PO (08:26)
[2023-04-18] MEDS: Sertraline HCL 25 MG TABLET PO (08:27)
[2023-04-18] MEDS: buPROPion HCl XL 300 MG TAB.ER.24H PO (08:27)
[2023-04-18] MEDS: Clopidogrel Bisulfate 75 MG TABLET PO (08:27)
[2023-04-18] MEDS: Spironolactone 25 MG TABLET PO ×2 (08:27→11:47)
[2023-04-18] MEDS: Isosorbide Mononitrate 30 MG TAB.ER.24H 90 MG PO (08:27)
[2023-04-18] MEDS: cloNIDine HCL 0.1 MG TABLET PO (08:27)
[2023-04-18] MEDS: Empagliflozin 10 MG TABLET PO (08:27)
[2023-04-18] MEDS: carvediloL 25 MG TABLET PO ×2 (08:27→20:28)
[2023-04-18] MEDS: Cholecalciferol (Vitamin D3) 25 MCG TABLET PO (08:27)
[2023-04-18] MEDS: hydrALAZINE HCl 50 MG TABLET PO ×4 (08:27→21:18)
[2023-04-18] MEDS: traMADoL HCL 50 MG TABLET 25 MG PO (08:28)
[2023-04-18] MEDS: Heparin Sodium,Porcine 5,000 UNIT/ML VIAL 5000 UNIT SUBCUT ×2 (08:28→21:18)
[2023-04-18] MEDS: Furosemide 100 MG/10 ML VIAL 60 MG IVPUSH (08:28)
[2023-04-18] MEDS: vancomycin HCL 750 MG in 0.9 % Sodium Chloride 250 ML 265 MG IV (08:30)
[2023-04-18] MEDS: Insulin Lispro 100 UNIT/ML 3 ML VIAL SUBCUT ×3 (08:49→17:21)
[2023-04-18] MEDS: Fluticasone Propionate Nasal 16 GM SPRAY 2 SPRAY NOSTRIL-B (09:59)
[2023-04-18] MEDS: Nystatin Powder 15 GM BOTTLE 1 APPL TOPICAL ×2 (10:16→21:18)
[2023-04-18] MEDS: Morphine Sulfate 4 MG/ML CARTRIDGE 2 MG IVPUSH (10:37)
[2023-04-18 11:04] LABS: Glucose, Whole Blood 206 mg/dL (60-115)
--- NOTE | 2023-04-18 11:32 | HO.PM.IMPN ---
Subjective Subjective Date of Service: 04/18/23 Interval History: Being followed for left lower extremity cellulitis, complaining of left leg pain, no nausea, no vomiting, no abdominal pain, no diarrhea, no fevers, no chills, no other acute issues overnight, noted to have sero sanguineous drainage from left leg wound. Review of Systems All other system reviewed and negative. Physical Exam Vital Signs: Vital Signs: Last Vital Signs Temp 99.4 F 04/18/23 07:37 Pulse 58 04/18/23 08:00 Resp 18 04/18/23 08:00 BP 125/63 04/18/23 07:37 Pulse Ox 94 04/18/23 07:37 O2 Del Method Room Air 04/18/23 07:37 O2 Flow Rate 2 04/17/23 07:02 BMI result Body Mass Index 49.3 Const: Other: Constitutional : A wake, alert in no acute distress Nec k : Normal inspect ion, Supple Cardio vascular : RRR, no jvd Respiratory : good bilateral ai r entry,? no crack les, wheezes or rh onchi Gastrointest inal:? soft, Ariela l bowel sounds, No n tender Left lowe r extremity, redne ss swelling and te nderness improving , small open wound just below knee w ith sero sanguineo us drainage. Neur ological : Alert & oriented x3, No f ocal deficit. Objective Data Active Medications Acetaminophen (Acetaminophen 325 Mg Tablet) 650 mg PO Q6H PRN PRN Reason: Pain, Mild (Pain Scale 1-3) Last Admin: 04/16/23 20:40 Dose: 650 mg Documented By: MORELIA Acetaminophen/Butalbital/Caffeine (Butalb/Acetamin/Caff 50/325/40 Tablet) 1 tab PO Q8H PRN PRN Reason: headache Albuterol Sulfate (Albuterol Sulfate (0.083%) 2.5 Mg/3 Ml Vial.Neb) 2.5 mg INHALE Q4H PRN PRN Reason: Shortness Of Breath Albuterol Sulfate (Albuterol Sulfate 90 Mcg 8 Gm Inhaler) 2 puff INHALE Q4H PRN PRN Reason: Wheezing Amlodipine Besylate (Amlodipine Besylate 10 Mg Tablet) 10 mg PO BEDTIME [facility]; Protocol Last Admin: 04/15/23 22:35 Dose: 10 mg Documented By: ROBYN Atorvastatin Calcium (Atorvastatin Calcium 80 Mg Tablet) 80 mg PO BEDTIME [facility] Last Admin: 04/17/23 20:19 Dose: 80 mg Documented By: ALPA Bupropion HCl (Bupropion Hcl Xl 300 Mg Tab.Er.24h) 300 mg PO DAILY [facility] Last Admin: 04/18/23 08:27 Dose: 300 mg Documented By: SAMUEL Calcium Carbonate/Cholecalciferol (Calcium + Vitamin D 250 Mg Tablet) 500 mg PO BID [facility] Last Admin: 04/18/23 08:26 Dose: 500 mg Documented By: SAMUEL Carvedilol (Carvedilol 25 Mg Tablet) 25 mg PO BID [facility]; Protocol Last Admin: 04/18/23 08:27 Dose: 25 mg Documented By: SAMUEL Clonidine HCl (Clonidine Hcl 0.1 Mg Tablet) 0.1 mg PO DAILY [facility]; Protocol Last Admin: 04/18/23 08:27 Dose: 0.1 mg Documented By: SAMUEL Clopidogrel Bisulfate (Clopidogrel Bisulfate 75 Mg Tablet) 75 mg PO DAILY [facility] Last Admin: 04/18/23 08:27 Dose: 75 mg Documented By: SAMUEL Dextrose (Dextrose 50 % 25 Gm/50 Ml Syringe) 25 gm IVPUSH Q15M PRN; Protocol PRN Reason: per Hypoglycemia Standing Ord. Docusate Sodium (Docusate Sodium 100 Mg Capsule) 100 mg PO DAILY PRN PRN Reason: Constipation Empagliflozin (Empagliflozin 10 Mg Tablet) 10 mg PO DAILY [facility] Last Admin: 04/18/23 08:27 Dose: 10 mg Documented By: SAMUEL Fluticasone Propionate (Fluticasone Propionate Nasal 16 Gm [place]) 2 spray NOSTRIL-B DAILY [facility] Last Admin: 04/18/23 09:59 Dose: 2 spray Documented By: SAMUEL Fluticasone/Vilanterol (Fluticasone/Vilanterol 100/25 Blst.W.Dev) 1 puff INHALE RDAILY [facility] Last Admin: 04/18/23 07:54 Dose: 1 puff Documented By: ELIZABETH Furosemide (Furosemide 20 Mg Tablet) 20 mg PO BID [facility]; Protocol Last Admin: 04/15/23 22:35 Dose: 20 mg Documented By: ROBYN Furosemide (Furosemide 40 Mg Tablet) 40 mg PO BID [facility]; Protocol Last Admin: 04/15/23 22:35 Dose: 40 mg Documented By: ROBYN Furosemide (Furosemide 100 Mg/10 Ml Vial) 60 mg IVPUSH BID@0900,1800 [facility]; Protocol Last Admin: 04/18/23 08:28 Dose: 60 mg Documented By: SAMUEL Glucose (Glucose Gel 15 Gm Gel..Gram.) 15 gm PO Q15M PRN; Protocol PRN Reason: per Hypoglycemia Standing Ord. Heparin Sodium (Porcine) (Heparin Sodium,Porcine 5,000 Unit/Ml Vial) 5,000 unit SUBCUT Q12H [facility] Last Admin: 04/18/23 08:28 Dose: 5,000 unit Documented By: SAMUEL Hydralazine HCl (Hydralazine Hcl 50 Mg Tablet) 50 mg PO QID [facility]; Protocol Last Admin: 04/18/23 08:27 Dose: 50 mg Documented By: SAMUEL Cefepime HCl 2 gm/ Sodium (Chloride) 50 mls @ 100 mls/hr IV Q8H [facility] Last Infusion: 04/18/23 05:05 Dose: 0 mls/hr Documented By: KENDALL Vancomycin HCl 750 mg/ Sodium (Chloride) 265 mls @ 265 mls/hr IV Q12H [facility] Last Infusion: 04/18/23 09:34 Dose: 0 mls/hr Documented By: SAMUEL Insulin Human Lispro (Insulin Lispro 100 Unit/Ml 3 Ml Vial) 0 unit SUBCUT QIDACHS [facility]; Protocol Last Admin: 04/18/23 08:49 Dose: 2 unit Documented By: SAMUEL Isosorbide Mononitrate (Isosorbide Mononitrate 30 Mg Tab.Er.24h) 90 mg PO DAILY [facility]; Protocol Last Admin: 04/18/23 08:27 Dose: 90 mg Documented By: SAMUEL Loratadine (Loratadine 10 Mg Tablet) 10 mg PO DAILY [facility] Last Admin: 04/18/23 08:26 Dose: 10 mg Documented By: SAMUEL Losartan Potassium (Losartan Potassium 50 Mg Tablet) 150 mg PO DAILY [facility]; Protocol Last Admin: 04/18/23 08:26 Dose: 150 mg Documented By: SAMUEL Morphine Sulfate (Morphine Sulfate 4 Mg/Ml Cartridge) 2 mg IVPUSH ONCE PRN; Protocol PRN Reason: Pre-Tim wrap placement Last Admin: 04/18/23 10:37 Dose: 2 mg Documented By: SAMUEL Nystatin (Nystatin Powder 15 Gm Bottle) 1 appl TOPICAL BID [facility] Last Admin: 04/18/23 10:16 Dose: 1 appl Documented By: SAMUEL Omeprazole (Omeprazole 20 Mg Capsule.Dr) 20 mg PO DAILY@0630 [facility] Last Admin: 04/18/23 05:47 Dose: 20 mg Documented By: KENDALL Ondansetron HCl (Ondansetron Hcl 4 Mg/2 Ml Vial) 4 mg IVPUSH Q8H PRN PRN Reason: Nausea and Vomiting Pharmacy Consult (Consult Rx Perform Med Rec) 1 each MISCELLANE ONCE PRN PRN Reason: Consult order Pharmacy Consult (Consult Rx Vancomycin Dosing) 1 each MISCELLANE DAILY PRN PRN Reason: Consult order Prazosin HCl (Prazosin Hcl 5 Mg Capsule) 5 mg PO BEDTIME [facility]; Protocol Last Admin: 04/17/23 20:19 Dose: 5 mg Documented By: ALPA Sertraline HCl (Sertraline Hcl 25 Mg Tablet) 25 mg PO DAILY [facility] Last Admin: 04/18/23 08:27 Dose: 25 mg Documented By: SAMUEL Sodium Chloride (0.9 % Sodium Chloride Flush 3 Ml Syringe) [facility] Last Admin: 04/18/23 08:22 Dose: 3 ml Documented By: SAMUEL Spironolactone (Spironolactone 25 Mg Tablet) 25 mg PO BID@0900,1200 [facility]; Protocol Last Admin: 04/18/23 08:27 Dose: 25 mg Documented By: SAMUEL Tiotropium [place] (Tiotropium [place] 2.5 Mcg Inhaler) 2 puff INHALE RDAILY [facility] Last Admin: 04/18/23 07:54 Dose: 2 puff Documented By: ELIZABETH Tramadol HCl (Tramadol Hcl 50 Mg Tablet) 25 mg PO Q6H PRN PRN Reason: Pain, Severe (Pain Scale 7-10) Last Admin: 04/18/23 08:28 Dose: 25 mg Documented By: SAMUEL Trazodone HCl (Trazodone Hcl 100 Mg Tablet) 200 mg PO BEDTIME [facility] Last Admin: 04/17/23 20:19 Dose: 200 mg Documented By: ALPA Verapamil HCl (Verapamil Hcl Sr 240 Mg Tablet.Er) 240 mg PO BEDTIME [facility]; Protocol Last Admin: 04/17/23 20:19 Dose: 240 mg Documented By: ALPA Vitamin D (Cholecalciferol (Vitamin D3) 25 Mcg Tablet) 25 mcg PO DAILY [facility] Last Admin: 04/18/23 08:27 Dose: 25 mcg Documented By: SAMUEL Labs 04/18/23 06:34 04/18/23 06:34 Labs: Laboratory Results - last 24 hr 04/17/23 04/17/23 04/17/23 16:12 18:52 20:16 MCV MCH MCHC RDW Plt Count MPV Absolute Nucleated RBC Nucleated RBC % (auto) Anion Gap Estim Creat Clear Calc Estimated GFR POC Glucose 197 H 220 H Random Glucose Calcium Vancomycin Trough 14.0 04/18/23 04/18/23 04/18/23 06:34 06:34 06:34 MCV 75.9 L MCH 22.3 L MCHC 29.4 L RDW 15.9 Plt Count 321 MPV 10.5 Absolute Nucleated RBC 0.000 Nucleated RBC % (auto) 0.0 Anion Gap 12 Estim Creat Clear Calc Cancelled 81.7 Estimated GFR Cancelled 58 POC Glucose Random Glucose 156 H Calcium 9.5 D Vancomycin Trough 04/18/23 04/18/23 07:00 10:50 MCV MCH MCHC RDW Plt Count MPV Absolute Nucleated RBC Nucleated RBC % (auto) Anion Gap Estim Creat Clear Calc Estimated GFR POC Glucose 157 H 206 H Random Glucose Calcium Vancomycin Trough Microbiology Microbiology Results: Microbiology 04/16/23 11:14 Gram Stain - Final Leg Left Routine Culture - Final 04/15/23 17:20 Blood Culture - Preliminary Blood - Venous No growth after 48 hours. 04/15/23 16:57 Blood Culture - Preliminary Blood - Venous No growth after 48 hours. 04/15/23 Unknown Urine Culture - Final Urine clean catch - Urine sena top No growth. Assessment and Plan (1) Cellulitis of left lower extremity: Status: Acute (2) Obstructive sleep apnea: Status: Acute (3) COPD (chronic obstructive pulmonary disease): Status: Acute (4) Acute on chronic right heart failure: Status: Acute Plan 62-year-old male with asthma/COPD overlap, coronary artery disease, [id number] type 2 diabetes, hyperlipidemia, hypertension, chronic normocytic anemia, obstructive sleep apnea not yet on CPAP but using supplemental O2 at bedtime, opioid dependence on methadone who is a current everyday smoker admitted for extensive cellulitis LLE #Acute extensive LLE cellulitis with stage 2 venous ulcerations Continue IV vanco and cefepime day 4, blood cultures no growth, WBC normal, will transition to by mouth antibiotics in next 24 hours cont. Lasix and TIM wrap # Fluid overload 2/2 Acute on chronic right side heart failure last ECHO showed EF 55-60% normal BNP, on IV Lasix greater than 4 L negative , on Aldactone b.i.d., will hold Lasix, follow BMP since bicarb and sodium trending up. # [id number] type 2 diabetes A1c 7.8, elevated blood sugars diabetic diet Humalog sliding scale, hold metformin # asthma/COPD overlap no acute exacerbation continue home inhalers, albuterol p.r.n # hypertension BP running soft, on multiple antihypertensive medications and diuretics follow BP closely # ABDOULAYE with nocturnal hypoxemia supplemental O2 at bedtime, outpatient CPAP appointment # chronic normocytic anemia H/H baseline, above transfusion threshold # opioid dependence continue methadone # morbid obesity recommend low-calorie diet, and exercise. DVT prophylaxis-heparin Full code Patient requires inpatient stay for management of acute extensive left lower extremity cellulitis requiring IV antibiotics having failed outpt abx. Time Spent With Patient Time: Total time managing care of this patient today ____ minutes. Quality Stroke Does the patient have a stroke diagnosis?: No VTE Prior VTE?: No VTE Risk Level:: Medical - moderate - high VTE Device Contraindication: Treatment Not Indicated VTE Drug Contraindication: N/A - Med Ordered
--- NOTE | 2023-04-18 14:50 | MHC.CM.PN ---
Per MD rounds- patient is not medically cleared for d/c- CM will continue to follow for d/c planning needs.
[2023-04-18 16:20] LABS: Glucose, Whole Blood 194 mg/dL (60-115)
--- NOTE | 2023-04-18 18:53 | HE.PHANOTE ---
RE: MANI Patients level came back this evening at 18. Patient was on 750 mg Q12H, this was predicted a level of 18 however patient seems to be showing levels that are about 2 above what rxinsight shows. As this level today was predicted to be 16.1 but came back at 18. Patients indication is skin infection, if dose was decreased, it would be sub therapeutic, if it was increased to 1000 mg Q12 it was going to be supra therapeutic. Chose to go with 24 hour dosing as patient is older, next dose will be 1500 mg Q24H, level after 1 dose to ensure patient is clearing. Next draw 04/19 @1900. I also ended up pushing back dosing by 1 hour to allow the 18 level to drop a little before dose of 1500 mg. Renal function does not seem to have stabilized yet, patients SCR was 1.25 today but 1.08 on 04/16.
[2023-04-18 20:09] LABS: Glucose, Whole Blood 147 mg/dL (60-115)
[2023-04-18] MEDS: VerapamiL HCL SR 240 MG TABLET.ER PO (20:27)
[2023-04-18] MEDS: traZODone HCL 100 MG TABLET 200 MG PO (20:27)
[2023-04-18] MEDS: Prazosin HCL 5 MG CAPSULE PO (20:27)
[2023-04-18] MEDS: Atorvastatin Calcium 80 MG TABLET PO (20:27)
[2023-04-18] MEDS: vancomycin HCL 1,500 MG in 0.9 % Sodium Chloride 500 ML 333.33 MG IV (21:18)
[2023-04-19] VITALS: BP 139/72; PULSE 57; RESP 17; TEMP 36.3; O2SAT 96
[2023-04-19] MEDS: 0.9 % Sodium Chloride Flush 3 ML SYRINGE IVFLUSH ×4 (01:00→20:28)
[2023-04-19 04:00] VITALS: BP 121/64; PULSE 74; RESP 17; TEMP 36.2; O2SAT 94
[2023-04-19] MEDS: Omeprazole 20 MG CAPSULE.DR PO (06:03)
[2023-04-19] MEDS: cefEPime HCl 2 GM in 0.9 % Sodium Chloride 50 ML IV ×3 (06:03→20:28)
[2023-04-19 07:27] LABS: Anion Gap 13 (12-20); Blood Urea Nitrogen 16 mg/dL (9-16); Calcium 9.2 mg/dL (8.4-10.2); Carbon Dioxide 34 mmol/L (22-29); Chloride 100 mmol/L (96-108); Estimated Glomerular Filt Rate 58; Glucose Random 151 mg/dL (60-115); Potassium 3.6 mmol/L (3.3-5.1); Sodium 143 mmol/L (135-145)
[2023-04-19] MEDS: Fluticasone/Vilanterol 100/25 BLST.W.DEV 1 PUFF INHALE (07:35)
[2023-04-19 07:38] VITALS: PULSE 66; RESP 20; O2SAT 90
[2023-04-19 07:55] VITALS: BP 166/78; PULSE 62; RESP 18; TEMP 36.8; O2SAT 92
[2023-04-19 07:59] LABS: Glucose, Whole Blood 144 mg/dL (60-115)
[2023-04-19] MEDS: traMADoL HCL 50 MG TABLET 25 MG PO (09:01)
[2023-04-19] MEDS: Fluticasone Propionate Nasal 16 GM SPRAY 2 SPRAY NOSTRIL-B (09:42)
[2023-04-19] MEDS: Calcium + Vitamin D 250 MG TABLET 500 MG PO ×2 (09:43→20:29)
[2023-04-19] MEDS: Sertraline HCL 25 MG TABLET PO (09:43)
[2023-04-19] MEDS: Isosorbide Mononitrate 30 MG TAB.ER.24H 90 MG PO (09:43)
[2023-04-19] MEDS: hydrALAZINE HCl 50 MG TABLET PO ×4 (09:43→20:29)
[2023-04-19] MEDS: carvediloL 25 MG TABLET PO ×2 (09:43→20:29)
[2023-04-19] MEDS: Loratadine 10 MG TABLET PO (09:43)
[2023-04-19] MEDS: Empagliflozin 10 MG TABLET PO (09:43)
[2023-04-19] MEDS: Heparin Sodium,Porcine 5,000 UNIT/ML VIAL 5000 UNIT SUBCUT ×2 (09:44→20:29)
[2023-04-19] MEDS: Nystatin Powder 15 GM BOTTLE 1 APPL TOPICAL ×2 (09:44→20:49)
[2023-04-19] MEDS: Spironolactone 25 MG TABLET PO ×2 (09:44→11:51)
[2023-04-19] MEDS: cloNIDine HCL 0.1 MG TABLET PO (09:44)
[2023-04-19] MEDS: Clopidogrel Bisulfate 75 MG TABLET PO (09:44)
[2023-04-19] MEDS: buPROPion HCl XL 300 MG TAB.ER.24H PO (09:44)
[2023-04-19] MEDS: Cholecalciferol (Vitamin D3) 25 MCG TABLET PO (09:44)
[2023-04-19] MEDS: Losartan Potassium 50 MG TABLET 150 MG PO (09:44)
--- NOTE | 2023-04-19 11:12 | P.CONGS_ITS ---
History of Present Illness Consult details Consult date: 04/19/23 Narrative: The patient is a 62-year-old morbidly obese gentleman asthma/COPD overlap, coronary artery disease, kvi-lshovsj-[id number] type 2 diabetes, hyperlipidemia, hypertension, chronic normocytic anemia, obstructive sleep apnea not yet on CPAP but using supplemental O2 at bedtime, opioid dependence on methadone who is a current everyday smoker. I was asked to evaluate the patient because of a left leg cellulitis and possible abscess. The patient reports no antecedent injury. ? Review of Systems Review of Systems: Yes all other systems are reviewed and are negative Constitutional: Constitutional: Reports as per [facility] Past Medical History Medical History (Updated 04/15/23 @ 20:41 by MÓNICA Márquez) Asthma Cellulitis of left lower extremity Chronic allergic rhinitis Chronic restrictive lung disease Cocaine abuse Congestive heart failure COPD (chronic obstructive pulmonary disease) Coronary artery disease Diabetes Hyperlipidemia Hypertension Normocytic anemia Obesity Obstructive sleep apnea Opioid abuse Osteopenia (~2015) Pulmonary nodule Smoker Streptococcal bacteremia Family History Family History Father No problems noted. Mother No problems noted. 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 Meds Allergies Allergy/AdvReac Type Severity Reaction Status Date / Time crab [CRAB] Allergy Unknown ANAPHYLAXIS Verified 01/31/23 13:46 lisinopril [LISINOPRIL] Allergy Unknown cough Verified 01/31/23 13:46 Penicillins [PCN] Allergy Unknown RASH Verified 01/31/23 13:46 Sulfa (Sulfonamide Allergy Unknown RASH Verified 01/31/23 13:46 Antibiotics) [SULFA (SULFONAMIDE ANTIBIOTICS)] Active Medications: Current Medications Acetaminophen (Acetaminophen 325 Mg Tablet) 650 mg PO Q6H PRN PRN Reason: Pain, Mild (Pain Scale 1-3) Last Admin: 04/16/23 20:40 Dose: 650 mg Acetaminophen/Butalbital/Caffeine (Butalb/Acetamin/Caff 50/325/40 Tablet) 1 tab PO Q8H PRN PRN Reason: headache Albuterol Sulfate (Albuterol Sulfate (0.083%) 2.5 Mg/3 Ml Vial.Neb) 2.5 mg INHALE Q4H PRN PRN Reason: Shortness Of Breath Albuterol Sulfate (Albuterol Sulfate 90 Mcg 8 Gm Inhaler) 2 puff INHALE Q4H PRN PRN Reason: Wheezing Amlodipine Besylate (Amlodipine Besylate 10 Mg Tablet) 10 mg PO BEDTIME [facility]; Protocol Last Admin: 04/15/23 22:35 Dose: 10 mg Atorvastatin Calcium (Atorvastatin Calcium 80 Mg Tablet) 80 mg PO BEDTIME [facility] Last Admin: 04/18/23 20:27 Dose: 80 mg Bupropion HCl (Bupropion Hcl Xl 300 Mg Tab.Er.24h) 300 mg PO DAILY [facility] Last Admin: 04/19/23 09:44 Dose: 300 mg Calcium Carbonate/Cholecalciferol (Calcium + Vitamin D 250 Mg Tablet) 500 mg PO BID [facility] Last Admin: 04/19/23 09:43 Dose: 500 mg Carvedilol (Carvedilol 25 Mg Tablet) 25 mg PO BID [facility]; Protocol Last Admin: 04/19/23 09:43 Dose: 25 mg Clonidine HCl (Clonidine Hcl 0.1 Mg Tablet) 0.1 mg PO DAILY [facility]; Protocol Last Admin: 04/19/23 09:44 Dose: 0.1 mg Clopidogrel Bisulfate (Clopidogrel Bisulfate 75 Mg Tablet) 75 mg PO DAILY [facility] Last Admin: 04/19/23 09:44 Dose: 75 mg Dextrose (Dextrose 50 % 25 Gm/50 Ml Syringe) 25 gm IVPUSH Q15M PRN; Protocol PRN Reason: per Hypoglycemia Standing Ord. Docusate Sodium (Docusate Sodium 100 Mg Capsule) 100 mg PO DAILY PRN PRN Reason: Constipation Empagliflozin (Empagliflozin 10 Mg Tablet) 10 mg PO DAILY [facility] Last Admin: 04/19/23 09:43 Dose: 10 mg Fluticasone Propionate (Fluticasone Propionate Nasal 16 Gm [place]) 2 spray N OSTRIL-B DAILY [facility] Last Admin: 04/19/23 09:42 Dose: 2 spray Fluticasone/Vilanterol (Fluticasone/Vilanterol 100/25 Blst.W.Dev) 1 puff INHALE RDAILY [facility] Last Admin: 04/19/23 07:35 Dose: 1 puff Furosemide (Furosemide 20 Mg Tablet) 20 mg PO BID [facility]; Protocol Last Admin: 04/15/23 22:35 Dose: 20 mg Furosemide (Furosemide 40 Mg Tablet) 40 mg PO BID [facility]; Protocol Last Admin: 04/15/23 22:35 Dose: 40 mg Glucose (Glucose Gel 15 Gm Gel..Gram.) 15 gm PO Q15M PRN; Protocol PRN Reason: per Hypoglycemia Standing Ord. Heparin Sodium (Porcine) (Heparin Sodium,Porcine 5,000 Unit/Ml Vial) 5,000 unit SUBCUT Q12H [facility] Last Admin: 04/19/23 09:44 Dose: 5,000 unit Hydralazine HCl (Hydralazine Hcl 50 Mg Tablet) 50 mg PO QID [facility]; Protocol Last Admin: 04/19/23 09:43 Dose: 50 mg Cefepime HCl 2 gm/ Sodium (Chloride) 50 mls @ 100 mls/hr IV Q8H [facility] Last Infusion: 04/19/23 06:57 Dose: Infused Vancomycin HCl 1,500 mg/ (Sodium Chloride) 500 mls @ 333.333 mls/hr IV Q24H [facility] Last Infusion: 04/18/23 22:54 Dose: Infused Insulin Human Lispro (Insulin Lispro 100 Unit/Ml 3 Ml Vial) 0 unit SUBCUT QIDACHS [facility]; Protocol Last Admin: 04/19/23 08:08 Dose: Not Given Isosorbide Mononitrate (Isosorbide Mononitrate 30 Mg Tab.Er.24h) 90 mg PO DAILY [facility]; Protocol Last Admin: 04/19/23 09:43 Dose: 90 mg Loratadine (Loratadine 10 Mg Tablet) 10 mg PO DAILY [facility] Last Admin: 04/19/23 09:43 Dose: 10 mg Losartan Potassium (Losartan Potassium 50 Mg Tablet) 150 mg PO DAILY [facility]; Protocol Last Admin: 04/19/23 09:44 Dose: 150 mg Morphine Sulfate (Morphine Sulfate 4 Mg/Ml Cartridge) 2 mg IVPUSH ONCE PRN; Protocol PRN Reason: Pre-Tim wrap placement Last Admin: 04/18/23 10:37 Dose: 2 mg Nystatin (Nystatin Powder 15 Gm Bottle) 1 appl TOPICAL BID [facility] Last Admin: 04/19/23 09:44 Dose: 1 appl Omeprazole (Omeprazole 20 Mg Capsule.Dr) 20 mg PO DAILY@0630 [facility] Last Admin: 04/19/23 06:03 Dose: 20 mg Ondansetron HCl (Ondansetron Hcl 4 Mg/2 Ml Vial) 4 mg IVPUSH Q8H PRN PRN Reason: Nausea and Vomiting Pharmacy Consult (Consult Rx Perform Med Rec) 1 each MISCELLANE ONCE PRN PRN Reason: Consult order Pharmacy Consult (Consult Rx Vancomycin Dosing) 1 each MISCELLANE DAILY PRN PRN Reason: Consult order Prazosin HCl (Prazosin Hcl 5 Mg Capsule) 5 mg PO BEDTIME [facility]; Protocol Last Admin: 04/18/23 20:27 Dose: 5 mg Sertraline HCl (Sertraline Hcl 25 Mg Tablet) 25 mg PO DAILY [facility] Last Admin: 04/19/23 09:43 Dose: 25 mg Sodium Chloride (0.9 % Sodium Chloride Flush 3 Ml Syringe) 3 ml IVFLUSH QSHIFT [facility] Last Admin: 04/19/23 06:07 Dose: 3 ml Spironolactone (Spironolactone 25 Mg Tablet) 25 mg PO BID@0900,1200 [facility]; Protocol Last Admin: 04/19/23 09:44 Dose: 25 mg Tiotropium [place] (Tiotropium [place] 2.5 Mcg Inhaler) 2 puff INHALE RDAILY [facility] Last Admin: 04/19/23 07:35 Dose: 2 puff Tramadol HCl (Tramadol Hcl 50 Mg Tablet) 25 mg PO Q6H PRN PRN Reason: Pain, Severe (Pain Scale 7-10) Last Admin: 04/19/23 09:01 Dose: 25 mg Trazodone HCl (Trazodone Hcl 100 Mg Tablet) 200 mg PO BEDTIME [facility] Last Admin: 04/18/23 20:27 Dose: 200 mg Verapamil HCl (Verapamil Hcl Sr 240 Mg Tablet.Er) 240 mg PO BEDTIME [facility]; Protocol Last Admin: 04/18/23 20:27 Dose: 240 mg Vitamin D (Cholecalciferol (Vitamin D3) 25 Mcg Tablet) 25 mcg PO DAILY [facility] Last Admin: 04/19/23 09:44 Dose: 25 mcg Home Medications Medication Instructions Recorded Confirmed Last Taken Type amlodipine 10 mg tablet 10 mg PO BEDTIME 02/12/21 04/15/23 06/09/22 History bupropion HCl 150 mg tablet,12 hr 150 mg PO BID 02/12/21 04/15/23 06/10/22 History sustained-release calcium carbonate 500 mg-vitamin 1 tab PO BID 02/12/21 04/15/23 06/10/22 History D3 10 mcg (400 unit) tablet ([place] Calcium-Vitamin D3) carvedilol 25 mg tablet 25 mg PO BID 02/12/21 04/15/23 06/10/22 History cholecalciferol (vitamin D3) 25 1,000 unit PO DAILY 02/12/21 04/15/23 06/10/22 History mcg (1,000 unit) tablet clopidogrel 75 mg tablet 75 mg PO DAILY 02/12/21 04/15/23 06/10/22 History fluticasone propionate 50 2 spray intranasal DAILY 02/12/21 04/15/23 06/10/22 History mcg/actuation nasal spray,suspension furosemide 40 mg tablet 40 mg PO BID 02/12/21 04/15/23 06/10/22 History hydralazine 100 mg tablet 100 mg PO QID 02/12/21 04/15/23 06/10/22 History isosorbide mononitrate 30 mg 90 mg PO DAILY 02/12/21 04/15/23 06/10/22 History tablet,extended release 24 hr losartan 100 mg tablet 150 mg PO DAILY 02/12/21 04/15/23 06/10/22 History metformin 500 mg tablet 500 mg PO BIDWM 02/12/21 04/15/23 06/10/22 History omeprazole 20 mg capsule,delayed 20 mg PO DAILY@0630 02/12/21 04/15/23 06/10/22 History release rosuvastatin 40 mg tablet 40 mg PO BEDTIME 02/12/21 04/15/23 06/09/22 History spironolactone 25 mg tablet 25 mg PO BID@0900,1200 02/12/21 04/15/23 06/10/22 H istory trazodone 100 mg tablet 200 mg PO BEDTIME 10/16/21 04/15/23 06/09/22 History methadone 10 mg/5 mL oral solution 35 mg PO DAILY 04/02/22 06/10/22 06/10/22 History albuterol sulfate 2.5 mg/3 mL 1 amp inhalation Q4-6H PRN 06/08/22 04/15/23 Unknown History (0.083 %) solution for nebulization Shortness Of Breath clonidine HCl 0.1 mg tablet 1 tab PO DAILY 06/08/22 04/15/23 06/10/22 History empagliflozin 10 mg tablet 10 mg PO DAILY 06/08/22 04/15/23 06/10/22 History (Jardiance) fluticasone 250 mcg-salmeterol 50 1 puff inhalation BID 06/08/22 04/15/23 06/10/22 History mcg/dose blistr powdr for inhalation (Advair Diskus) tiotropium bromide 18 mcg capsule 1 cap inhalation DAILY 06/08/22 04/15/23 06/10/22 History with inhalation device (Spiriva with HandiHaler) verapamil 240 mg tablet,extended 240 mg PO BEDTIME 06/08/22 04/15/23 06/09/22 History release acetaminophen 650 mg 2 tab PO Q8H PRN Pain (Scale Score 06/10/22 04/15/23 Unkno wn History tablet,extended release 1-3) nebulizers 10/25/22 Unknown History Oxygen Home Use 10/31/22 Unknown History cefuroxime axetil 250 mg tablet 250 mg PO BID 04/15/23 04/15/23 Unknown History furosemide 20 mg tablet 20 mg PO BID 04/15/23 04/15/23 Unknown History loratadine 10 mg tablet 10 mg PO QAM 04/15/23 04/15/23 Unknown History prazosin 5 mg capsule 5 mg PO BEDTIME 04/15/23 04/15/23 Unknown History sertraline 25 mg tablet 25 mg PO QAM 04/15/23 04/15/23 Unknown History Physical Exam Vital Signs: Vital Signs: Last Vital Signs Temp 98.2 F 04/19/23 07:55 Pulse 62 04/19/23 07:55 Resp 18 04/19/23 07:55 BP 166/78 H 04/19/23 07:55 Pulse Ox 92 04/19/23 07:55 O2 Del Method Room Air 04/19/23 07:55 O2 Flow Rate 2 04/17/23 07:02 BMI result Body Mass Index 49.3 The patient was seen with Dr. Banks. Please see his note for full details since he believes this to be a septic bursitis Results Labs 04/18/23 06:34 04/19/23 06:25 Labs: Abnormal lab results 04/18/23 04/18/23 04/19/23 Range/Units 16:11 20:00 06:25 Carbon Dioxide 34 H (22-29) mmol/L POC Glucose 194 H 147 H (60-115) mg/dL Random Glucose 151 H (60-115) mg/dL C-Reactive Protein 4.10 H (< or = 0.50) mg/dL 04/19/23 Range/Units 07:54 Carbon Dioxide (22-29) mmol/L POC Glucose 144 H (60-115) mg/dL Random Glucose (60-115) mg/dL C-Reactive Protein (< or = 0.50) mg/dL BMP 04/19/23 06:25 Sodium 143 Potassium 3.6 Chloride 100 Carbon Dioxide 34 H BUN 16 Creatinine 1.26 Calcium 9.2 Urine 04/15/23 Range/Units 17:20 Urine Color Yellow Urine Appearance Clear Urine pH 5.5 (5.0-9.0) Ur Specific [place] >= 1.030 H (1.005-1.025) Urine Protein 30 (1+) H (Neg-Trace) mg/dL Urine Glucose (UA) >=1000 H (Negative) mg/dL All other labs normal. Assessment and Plan (1) Cellulitis and abscess of left leg: Status: Acute (2) Cellulitis of left lower extremity: Status: Acute (3) Obstructive sleep apnea: Status: Acute (4) COPD (chronic obstructive pulmonary disease): Qualifiers: COPD type: COPD with acute exacerbation Qualified Code(s): J44.1 - Chronic obstructive pulmonary disease with (acute) exacerbation Status: Acute (5) PAD (peripheral artery disease): Status: Acute (6) Heart failure with preserved ejection fraction: Status: Acute (7) MELISSA (acute kidney injury): Status: Acute (8) Acute on chronic diastolic (congestive) heart failure: Status: Acute (9) Heroin abuse: Status: Acute Plan Will defer management to Dr. Banks/orthopedics. Time Spent With Patient Time: Total time managing care of this patient today ____ minutes. Procedures Date of Service Date of Service: 04/19/23
--- NOTE | 2023-04-19 11:22 | HO.PM.IMPN ---
Subjective Subjective Date of Service: 04/19/23 Interval History: Complaining of lack of sleep due to left leg pain , denies fever, no chills, no nausea, no vomiting, no abdominal pain, no diarrhea, no other acute issues overnight. Review of Systems All other system reviewed and negative. Physical Exam Vital Signs: Vital Signs: Last Vital Signs Temp 98.2 F 04/19/23 07:55 Pulse 62 04/19/23 07:55 Resp 18 04/19/23 07:55 BP 166/78 H 04/19/23 07:55 Pulse Ox 92 04/19/23 07:55 O2 Del Method Room Air 04/19/23 07:55 O2 Flow Rate 2 04/17/23 07:02 BMI result Body Mass Index 49.3 Const: Other: Constitutional : Awake, alert in noacute distress Neck : Normal inspection, Supple Cardiovascular : RRR, no?jvd Respiratory :?good bilateral air entry,? no crackles, wheezes or rhonchi Gastrointestinal:? soft, Normal bowel sounds, Non tender Left lower extremity, redness swelling and tenderness improving, small open wound?with surrounding area of redness and small opening extending just below knee with significant sero sanguineous drainage. Neurological : Alert &?oriented x3, No focal deficit. Psych appropriate affect Objective Data Active Medications Acetaminophen (Acetaminophen 325 Mg Tablet) 650 mg PO Q6H PRN PRN Reason: Pain, Mild (Pain Scale 1-3) Last Admin: 04/16/23 20:40 Dose: 650 mg Documented By: MORELIA Acetaminophen/Butalbital/Caffeine (Butalb/Acetamin/Caff 50/325/40 Tablet) 1 tab PO Q8H PRN PRN Reason: headache Albuterol Sulfate (Albuterol Sulfate (0.083%) 2.5 Mg/3 Ml Vial.Neb) 2.5 mg INHALE Q4H PRN PRN Reason: Shortness Of Breath Albuterol Sulfate (Albuterol Sulfate 90 Mcg 8 Gm Inhaler) 2 puff INHALE Q4H PRN PRN Reason: Wheezing Amlodipine Besylate (Amlodipine Besylate 10 Mg Tablet) 10 mg PO BEDTIME [facility]; Protocol Last Admin: 04/15/23 22:35 Dose: 10 mg Documented By: ROBYN Atorvastatin Calcium (Atorvastatin Calcium 80 Mg Tablet) 80 mg PO BEDTIME [facility] Last Admin: 04/18/23 20:27 Dose: 80 mg Documented By: KAROL Bupropion HCl (Bupropion Hcl Xl 300 Mg Tab.Er.24h) 300 mg PO DAILY [facility] Last Admin: 04/19/23 09:44 Dose: 300 mg Documented By: SAMUEL Calcium Carbonate/Cholecalciferol (Calcium + Vitamin D 250 Mg Tablet) 500 mg PO BID [facility] Last Admin: 04/19/23 09:43 Dose: 500 mg Documented By: SAMUEL Carvedilol (Carvedilol 25 Mg Tablet) 25 mg PO BID [facility]; Protocol Last Admin: 04/19/23 09:43 Dose: 25 mg Documented By: SAMUEL Clonidine HCl (Clonidine Hcl 0.1 Mg Tablet) 0.1 mg PO DAILY [facility]; Protocol Last Admin: 04/19/23 09:44 Dose: 0.1 mg Documented By: SAMUEL Clopidogrel Bisulfate (Clopidogrel Bisulfate 75 Mg Tablet) 75 mg PO DAILY [facility] Last Admin: 04/19/23 09:44 Dose: 75 mg Documented By: SAMUEL Dextrose (Dextrose 50 % 25 Gm/50 Ml Syringe) 25 gm IVPUSH Q15M PRN; Protocol PRN Reason: per Hypoglycemia Standing Ord. Docusate Sodium (Docusate Sodium 100 Mg Capsule) 100 mg PO DAILY PRN PRN Reason: Constipation Empagliflozin (Empagliflozin 10 Mg Tablet) 10 mg PO DAILY [facility] Last Admin: 04/19/23 09:43 Dose: 10 mg Documented By: SAMUEL Fluticasone Propionate (Fluticasone Propionate Nasal 16 Gm [place]) 2 spray NOSTRIL-B DAILY [facility] Last Admin: 04/19/23 09:42 Dose: 2 spray Documented By: SAMUEL Fluticasone/Vilanterol (Fluticasone/Vilanterol 100/25 Blst.W.Dev) 1 puff INHALE RDAILY [facility] Last Admin: 04/19/23 07:35 Dose: 1 puff Documented By: KEEGAN Furosemide (Furosemide 20 Mg Tablet) 20 mg PO BID [facility]; Protocol Last Admin: 04/15/23 22:35 Dose: 20 mg Documented By: ROBYN Furosemide (Furosemide 40 Mg Tablet) 40 mg PO BID [facility]; Protocol Last Admin: 04/15/23 22:35 Dose: 40 mg Documented By: ROBYN Glucose (Glucose Gel 15 Gm Gel..Gram.) 15 gm PO Q15M PRN; Protocol PRN Reason: per Hypoglycemia Standing Ord. Heparin Sodium (Porcine) (Heparin Sodium,Porcine 5,000 Unit/Ml Vial) 5,000 unit SUBCUT Q12H [facility] Last Admin: 04/19/23 09:44 Dose: 5,000 unit Documented By: SAMUEL Hydralazine HCl (Hydralazine Hcl 50 Mg Tablet) 50 mg PO QID [facility]; Protocol Last Admin: 04/19/23 09:43 Dose: 50 mg Documented By: SAMUEL Cefepime HCl 2 gm/ Sodium (Chloride) 50 mls @ 100 mls/hr IV Q8H [facility] Last Infusion: 04/19/23 06:57 Dose: 0 mls/hr Documented By: AUDRA Vancomycin HCl 1,500 mg/ (Sodium Chloride) 500 mls @ 333.333 mls/hr IV Q24H [facility] Last Infusion: 04/18/23 22:54 Dose: 0 mls/hr Documented By: KAROL Insulin Human Lispro (Insulin Lispro 100 Unit/Ml 3 Ml Vial) 0 unit SUBCUT QIDACHS [facility]; Protocol Last Admin: 04/19/23 08:08 Dose: Not Given Documented By: SAMUEL Non-Admin Reason: No Insulin Coverage Isosorbide Mononitrate (Isosorbide Mononitrate 30 Mg Tab.Er.24h) 90 mg PO DAILY [facility]; Protocol Last Admin: 04/19/23 09:43 Dose: 90 mg Documented By: SAMUEL Loratadine (Loratadine 10 Mg Tablet) 10 mg PO DAILY [facility] Last Admin: 04/19/23 09:43 Dose: 10 mg Documented By: SAMUEL Losartan Potassium (Losartan Potassium 50 Mg Tablet) 150 mg PO DAILY [facility]; Protocol Last Admin: 04/19/23 09:44 Dose: 150 mg Documented By: SAMUEL Morphine Sulfate (Morphine Sulfate 4 Mg/Ml Cartridge) 2 mg IVPUSH ONCE PRN; Protocol PRN Reason: Pre-Tim wrap placement Last Admin: 04/18/23 10:37 Dose: 2 mg Documented By: SAMUEL Nystatin (Nystatin Powder 15 Gm Bottle) 1 appl TOPICAL BID [facility] Last Admin: 04/19/23 09:44 Dose: 1 appl Documented By: SAMUEL Omeprazole (Omeprazole 20 Mg Capsule.Dr) 20 mg PO DAILY@0630 [facility] Last Admin: 04/19/23 06:03 Dose: 20 mg Documented By: AUDRA Ondansetron HCl (Ondansetron Hcl 4 Mg/2 Ml Vial) 4 mg IVPUSH Q8H PRN PRN Reason: Nausea and Vomiting Pharmacy Consult (Consult Rx Perform Med Rec) 1 each MISCELLANE ONCE PRN PRN Reason: Consult order Pharmacy Consult (Consult Rx Vancomycin Dosing) 1 each MISCELLANE DAILY PRN PRN Reason: Consult order Prazosin HCl (Prazosin Hcl 5 Mg Capsule) 5 mg PO BEDTIME [facility]; Protocol Last Admin: 04/18/23 20:27 Dose: 5 mg Documented By: KAROL Sertraline HCl (Sertraline Hcl 25 Mg Tablet) 25 mg PO DAILY [facility] Last Admin: 04/19/23 09:43 Dose: 25 mg Documented By: SAMUEL Sodium Chloride (0.9 % Sodium Chloride Flush 3 Ml Syringe) 3 ml IVFLUSH QSHIFT [facility] Last Admin: 04/19/23 06:07 Dose: 3 ml Documented By: AUDRA Spironolactone (Spironolactone 25 Mg Tablet) 25 mg PO BID@0900,1200 [facility]; Protocol Last Admin: 04/19/23 09:44 Dose: 25 mg Documented By: SAMUEL Tiotropium [place] (Tiotropium [place] 2.5 Mcg Inhaler) 2 puff INHALE RDAILY [facility] Last Admin: 04/19/23 07:35 Dose: 2 puff Documented By: KEEGAN Tramadol HCl (Tramadol Hcl 50 Mg Tablet) 25 mg PO Q6H PRN PRN Reason: Pain, Severe (Pain Scale 7-10) Last Admin: 04/19/23 09:01 Dose: 25 mg Documented By: SAMUEL Trazodone HCl (Trazodone Hcl 100 Mg Tablet) 200 mg PO BEDTIME [facility] Last Admin: 04/18/23 20:27 Dose: 200 mg Documented By: KAROL Verapamil HCl (Verapamil Hcl Sr 240 Mg Tablet.Er) 240 mg PO BEDTIME [facility]; Protocol Last Admin: 04/18/23 20:27 Dose: 240 mg Documented By: KAROL Vitamin D (Cholecalciferol (Vitamin D3) 25 Mcg Tablet) 25 mcg PO DAILY [facility] Last Admin: 04/19/23 09:44 Dose: 25 mcg Documented By: SAMUEL Labs 04/18/23 06:34 04/19/23 06:25 Labs: Laboratory Results - last 24 hr 04/18/23 04/18/23 04/18/23 16:11 18:00 20:00 Anion Gap Estim Creat Clear Calc Estimated GFR POC Glucose 194 H 147 H Random Glucose Calcium C-Reactive Protein Random Vancomycin 18.0 04/19/23 04/19/23 06:25 07:54 Anion Gap 13 Estim Creat Clear Calc 81.0 Estimated GFR 58 POC Glucose 144 H Random Glucose 151 H Calcium 9.2 C-Reactive Protein 4.10 H Random Vancomycin Microbiology Microbiology Results: Microbiology 04/16/23 11:14 Gram Stain - Final Leg Left Routine Culture - Final Assessment and Plan (1) Cellulitis of left lower extremity: Status: Acute (2) Obstructive sleep apnea: Status: Acute (3) COPD (chronic obstructive pulmonary disease): Status: Acute (4) Acute on chronic right heart failure: Status: Acute Plan 62-year-old male with asthma/COPD overlap, coronary artery disease, [id number] type 2 diabetes, hyperlipidemia, hypertension, chronic normocytic anemia, obstructive sleep apnea not yet on CPAP but using supplemental O2 at bedtime, opioid dependence on methadone who is a current everyday smoker admitted for extensive cellulitis LLE #Acute extensive LLE cellulitis with open wound with ? underlying abscess Noted to have significant drainage from open wound left leg just below knee on IV vanco and cefepime day 5, blood cultures no growth, WBC normal, will consult General surgery. DC IV vanco placed on doxy 100 b.i.d. # Fluid overload 2/2 Acute on chronic right side heart failure last ECHO showed EF 55-60% normal BNP, s/p IV Lasix greater than 4 L negative , on Aldactone b.i.d., will hold Lasix, follow BMP sodium normalized bicarb remains elevated # [id number] type 2 diabetes A1c 7.8, elevated blood sugars, will add Lantus at bedtime diabetic diet Humalog sliding scale, hold metformin # asthma/COPD overlap no acute exacerbation continue home inhalers, albuterol p.r.n # hypertension BP stable, on multiple antihypertensive medications and diuretics follow BP closely # ABDOULAYE with nocturnal hypoxemia supplemental O2 at bedtime, outpatient CPAP appointment # chronic normocytic anemia H/H baseline, above transfusion threshold # opioid dependence continue methadone # morbid obesity recommend low-calorie diet, and exercise. DVT prophylaxis-heparin Full code Patient requires inpatient stay for management of acute extensive left lower extremity cellulitis requiring IV antibiotics having failed outpt abx. Need expert consultation with general surgery and orthopedic. Time Spent With Patient Time: Total time managing care of this patient today ____ minutes. Quality Stroke Does the patient have a stroke diagnosis?: No VTE Prior VTE?: No VTE Risk Level:: Medical - moderate - high VTE Device Contraindication: Treatment Not Indicated VTE Drug Contraindication: N/A - Med Ordered
[2023-04-19 11:37] LABS: Glucose, Whole Blood 208 mg/dL (60-115)
[2023-04-19] MEDS: Insulin Lispro 100 UNIT/ML 3 ML VIAL SUBCUT ×2 (11:51→20:48)
--- NOTE | 2023-04-19 13:54 | PM.CNOR ---
History of Present Illness HPI Consult date: 04/19/23 Chief complaint: Cellulitis L leg Narrative: 4 days of pain and sweling anterior left knee. improved overnight with iv abx PMFSH Past Medical History Medical History (Updated 04/15/23 @ 20:41 by MÓNICA Márquez) Asthma Cellulitis of left lower extremity Chronic allergic rhinitis Chronic restrictive lung disease Cocaine abuse Congestive heart failure COPD (chronic obstructive pulmonary disease) Coronary artery disease Diabetes Hyperlipidemia Hypertension Normocytic anemia Obesity Obstructive sleep apnea Opioid abuse Osteopenia (~2016) Pulmonary nodule Smoker Streptococcal bacteremia Family History Family History Father No problems noted. Mother No problems noted. 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 Meds Allergies Allergy/AdvReac Type Severity Reaction Status Date / Time crab [CRAB] Allergy Unknown ANAPHYLAXIS Verified 01/31/23 13:46 lisinopril [LISINOPRIL] Allergy Unknown cough Verified 01/31/23 13:46 Penicillins [PCN] Allergy Unknown RASH Verified 01/31/23 13:46 Sulfa (Sulfonamide Allergy Unknown RASH Verified 01/31/23 13:46 Antibiotics) [SULFA (SULFONAMIDE ANTIBIOTICS)] Active Medications: Current Medications Acetaminophen (Acetaminophen 325 Mg Tablet) 650 mg PO Q6H PRN PRN Reason: Pain, Mild (Pain Scale 1-3) Last Admin: 04/16/23 20:40 Dose: 650 mg Acetaminophen/Butalbital/Caffeine (Butalb/Acetamin/Caff 50/325/40 Tablet) 1 tab PO Q8H PRN PRN Reason: headache Albuterol Sulfate (Albuterol Sulfate (0.083%) 2.5 Mg/3 Ml Vial.Neb) 2.5 mg INHALE Q4H PRN PRN Reason: Shortness Of Breath Albuterol Sulfate (Albuterol Sulfate 90 Mcg 8 Gm Inhaler) 2 puff INHALE Q4H PRN PRN Reason: Wheezing Amlodipine Besylate (Amlodipine Besylate 10 Mg Tablet) 10 mg PO BEDTIME [facility]; Protocol Last Admin: 04/15/23 22:35 Dose: 10 mg Atorvastatin Calcium (Atorvastatin Calcium 80 Mg Tablet) 80 mg PO BEDTIME [facility] Last Admin: 04/18/23 20:27 Dose: 80 mg Bupropion HCl (Bupropion Hcl Xl 300 Mg Tab.Er.24h) 300 mg PO DAILY [facility] Last Admin: 04/19/23 09:44 Dose: 300 mg Calcium Carbonate/Cholecalciferol (Calcium + Vitamin D 250 Mg Tablet) 500 mg PO BID [facility] Last Admin: 04/19/23 09:43 Dose: 500 mg Carvedilol (Carvedilol 25 Mg Tablet) 25 mg PO BID [facility]; Protocol Last Admin: 04/19/23 09:43 Dose: 25 mg Clonidine HCl (Clonidine Hcl 0.1 Mg Tablet) 0.1 mg PO DAILY [facility]; Protocol Last Admin: 04/19/23 09:44 Dose: 0.1 mg Clopidogrel Bisulfate (Clopidogrel Bisulfate 75 Mg Tablet) 75 mg PO DAILY [facility] Last Admin: 04/19/23 09:44 Dose: 75 mg Dextrose (Dextrose 50 % 25 Gm/50 Ml Syringe) 25 gm IVPUSH Q15M PRN; Protocol PRN Reason: per Hypoglycemia Standing Ord. Docusate Sodium (Docusate Sodium 100 Mg Capsule) 100 mg PO DAILY PRN PRN Reason: Constipation Doxycycline Monohydrate (Doxycycline Monohydrate 100 Mg Capsule) 100 mg PO Q12H [facility] Empagliflozin (Empagliflozin 10 Mg Tablet) 10 mg PO DAILY [facility] Last Admin: 04/19/23 09:43 Dose: 10 mg Fluticasone Propionate (Fluticasone Propionate Nasal 16 Gm [place]) 2 spray NOSTRIL-B DAILY [facility] Last Admin: 04/19/23 09:42 Dose: 2 spray Fluticasone/Vilanterol (Fluticasone/Vilanterol 100/25 Blst.W.Dev) 1 puff INHALE RDAILY [facility] Last Admin: 04/19/23 07:35 Dose: 1 puff Furosemide (Furosemide 20 Mg Tablet) 20 mg PO BID [facility]; Protocol Last Admin: 04/15/23 22:35 Dose: 20 mg Furosemide (Furosemide 40 Mg Tablet) 40 mg PO BID [facility]; Protocol Last Admin: 04/15/23 22:35 Dose: 40 mg Glucose (Glucose Gel 15 Gm Gel..Gram.) 15 gm PO Q15M PRN; Protocol PRN Reason: per Hypoglycemia Standing Ord. Heparin Sodium (Porcine) (Heparin Sodium,Porcine 5,000 Unit/Ml Vial) 5,000 unit SUBCUT Q12H [facility] Last Admin: 04/19/23 09:44 Dose: 5,000 unit Hydralazine HCl (Hydralazine Hcl 50 Mg Tablet) 50 mg PO QID [facility]; Protocol Last Admin: 04/19/23 11:51 Dose: 50 mg Cefepime HCl 2 gm/ Sodium (Chloride) 50 mls @ 100 mls/hr IV Q8H [facility] Last Admin: 04/19/23 13:42 Dose: 100 mls/hr Insulin Glargine (Insulin Glargine,Hum.Rec.Anlog 100 Unit/Ml 10 Ml Vial) 10 unit SUBCUT BEDTIME [facility] Insulin Human Lispro (Insulin Lispro 100 Unit/Ml 3 Ml Vial) 0 unit SUBCUT QIDACHS [facility]; Protocol Last Admin: 04/19/23 11:51 Dose: 4 unit Isosorbide Mononitrate (Isosorbide Mononitrate 30 Mg Tab.Er.24h) 90 mg PO DAILY [facility]; Protocol Last Admin: 04/19/23 09:43 Dose: 90 mg Loratadine (Loratadine 10 Mg Tablet) 10 mg PO DAILY [facility] Last Admin: 04/19/23 09:43 Dose: 10 mg Losartan Potassium (Losartan Potassium 50 Mg Tablet) 150 mg PO DAILY [facility]; Protocol Last Admin: 04/19/23 09:44 Dose: 150 mg Morphine Sulfate (Morphine Sulfate 4 Mg/Ml Cartridge) 2 mg IVPUSH ONCE PRN; Protocol PRN Reason: Pre-Tim wrap placement Last Admin: 04/18/23 10:37 Dose: 2 mg Nystatin (Nystatin Powder 15 Gm Bottle) 1 appl TOPICAL BID [facility] Last Admin: 04/19/23 09:44 Dose: 1 appl Omeprazole (Omeprazole 20 Mg Capsule.Dr) 20 mg PO DAILY@0630 [facility] Last Admin: 04/19/23 06:03 Dose: 20 mg Ondansetron HCl (Ondansetron Hcl 4 Mg/2 Ml Vial) 4 mg IVPUSH Q8H PRN PRN Reason: Nausea and Vomiting Pharmacy Consult (Consult Rx Perform Med Rec) 1 each MISCELLANE ONCE PRN PRN Reason: Consult order Pharmacy Consult (Consult Rx Vancomycin Dosing) 1 each MISCELLANE DAILY PRN PRN Reason: Consult order Prazosin HCl (Prazosin Hcl 5 Mg Capsule) 5 mg PO BEDTIME [facility]; Protocol Last Admin: 04/18/23 20:27 Dose: 5 mg Sertraline HCl (Sertraline Hcl 25 Mg Tablet) 25 mg PO DAILY [facility] Last Admin: 04/19/23 09:43 Dose: 25 mg Sodium Chloride (0.9 % Sodium Chloride Flush 3 Ml Syringe) 3 ml IVFLUSH QSHIFT [facility] Last Admin: 04/19/23 06:07 Dose: 3 ml Tiotropium [place] (Tiotropium [place] 2.5 Mcg Inhaler) 2 puff INHALE RDAILY [facility] Last Admin: 04/19/23 07:35 Dose: 2 puff Tramadol HCl (Tramadol Hcl 50 Mg Tablet) 25 mg PO Q6H PRN PRN Reason: Pain, Severe (Pain Scale 7-10) Last Admin: 04/19/23 09:01 Dose: 25 mg Trazodone HCl (Trazodone Hcl 100 Mg Tablet) 200 mg PO BEDTIME [facility] Last Admin: 04/18/23 20:27 Dose: 200 mg Verapamil HCl (Verapamil Hcl Sr 240 Mg Tablet.Er) 240 mg PO BEDTIME [facility]; Protocol Last Admin: 04/18/23 20:27 Dose: 240 mg Vitamin D (Cholecalciferol (Vitamin D3) 25 Mcg Tablet) 25 mcg PO DAILY [facility] Last Admin: 04/19/23 09:44 Dose: 25 mcg Home Medications Medication Instructions Recorded Confirmed Last Taken Type amlodipine 10 mg tablet 10 mg PO BEDTIME 02/12/21 04/15/23 06/09/22 History bupropion HCl 150 mg tablet,12 hr 150 mg PO BID 02/12/21 04/15/23 06/10/22 History sustained-release calcium carbonate 500 mg-vitamin 1 tab PO BID 02/12/21 04/15/23 06/10/22 History D3 10 mcg (400 unit) tablet ([place] Calcium-Vitamin D3) carvedilol 25 mg tablet 25 mg PO BID 02/12/21 04/15/23 06/10/22 History cholecalciferol (vitamin D3) 25 1,000 unit PO DAILY 02/12/21 04/15/23 06/10/22 History mcg (1,000 unit) tablet clopidogrel 75 mg tablet 75 mg PO DAILY 02/12/21 04/15/23 06/10/22 History fluticasone propionate 50 2 spray intranasal DAILY 02/12/21 04/15/23 06/10/22 History mcg/actuation nasal spray,suspension furosemide 40 mg tablet 40 mg PO BID 02/12/21 04/15/23 06/10/22 History hydralazine 100 mg tablet 100 mg PO QID 02/12/21 04/15/23 06/10/22 History isosorbide mononitrate 30 mg 90 mg PO DAILY 02/12/21 04/15/23 06/10/22 History tablet,extended release 24 hr losartan 100 mg tablet 150 mg PO DAILY 02/12/21 04/15/23 06/10/22 History metformin 500 mg tablet 500 mg PO BIDWM 02/12/21 04/15/23 06/10/22 History omeprazole 20 mg capsule,delayed 20 mg PO DAILY@0630 02/12/21 04/15/23 06/10/22 History release rosuvastatin 40 mg tablet 40 mg PO BEDTIME 02/12/21 04/15/23 06/09/22 History spironolactone 25 mg tablet 25 mg PO BID@0900,1200 02/12/21 04/15/23 06/10/22 History trazodone 100 mg tablet 200 mg PO BEDTIME 10/16/21 04/15/23 06/09/22 History methadone 10 mg/5 mL oral solution 35 mg PO DAILY 04/02/22 06/10/22 06/10/22 History albuterol sulfate 2.5 mg/3 mL 1 amp inhalation Q4-6H PRN 06/08/22 04/15/23 Unknown History (0.083 %) solution for nebulization Shortness Of Breath clonidine HCl 0.1 mg tablet 1 tab PO DAILY 06/08/22 04/15/23 06/10/22 History empagliflozin 10 mg tablet 10 mg PO DAILY 06/08/22 04/15/23 06/10/22 History (Jardiance) fluticasone 250 mcg-salmeterol 50 1 puff inhalation BID 06/08/22 04/15/23 06/10/22 History mcg/dose blistr powdr for inhalation (Advair Diskus) tiotropium bromide 18 mcg capsule 1 cap inhalation DAILY 06/08/22 04/15/23 06/10/22 History with inhalation device (Spiriva with HandiHaler) verapamil 240 mg tablet,extended 240 mg PO BEDTIME 06/08/22 04/15/23 06/09/22 History release acetaminophen 650 mg 2 tab PO Q8H PRN Pain (Scale Score 06/10/22 04/15/23 Unknown History tablet,extended release 1-3) nebulizers 10/25/22 Unknown History Oxygen Home Use 10/31/22 Unknown History cefuroxime axetil 250 mg tablet 250 mg PO BID 04/15/23 04/15/23 Unknown History furosemide 20 mg tablet 20 mg PO BID 04/15/23 04/15/23 Unknown History loratadine 10 mg tablet 10 mg PO QAM 04/15/23 04/15/23 Unknown History prazosin 5 mg capsule 5 mg PO BEDTIME 04/15/23 04/15/23 Unknown History sertraline 25 mg tablet 25 mg PO QAM 04/15/23 04/15/23 Unknown History Physical Exam Vital Signs: Vital Signs: Last Vital Signs Temp 98.2 F 04/19/23 07:55 Pulse 62 04/19/23 07:55 Resp 18 04/19/23 07:55 BP 166/78 H 04/19/23 07:55 Pulse Ox 92 04/19/23 07:55 O2 Del Method Room Air 04/19/23 07:55 O2 Flow Rate 2 04/17/23 07:02 BMI result Body Mass Index 49.3 Extrem: Other: anterior infra patellar bursitis without intra articular imvolvement and no fluctuance. + skin breakdown Results Labs 04/18/23 06:34 04/19/23 06:25 Labs: Abnormal lab results 04/18/23 04/18/23 04/19/23 Range/Units 16:11 20:00 06:25 Carbon Dioxide 34 H (22-29) mmol/L POC Glucose 194 H 147 H (60-115) mg/dL Random Glucose 151 H (60-115) mg/dL C-Reactive Protein 4.10 H (< or = 0.50) mg/dL 04/19/23 04/19/23 Range/Units 07:54 11:33 Carbon Dioxide (22-29) mmol/L POC Glucose 144 H 208 H (60-115) mg/dL Random Glucose (60-115) mg/dL C-Reactive Protein (< or = 0.50) mg/dL H & H 04/15/23 04/16/23 04/17/23 Range/Units 17:20 04:47 06:28 Hgb 11.6 L 9.6 L 10.4 L (14.0-18.0) g/dl Hct 39.3 L 32.7 L 34.9 L (42.0-52.0) % 04/18/23 Range/Units 06:34 Hgb 10.1 L (14.0-18.0) g/dl Hct 34.4 L (42.0-52.0) % All other labs normal. Assessment and Plan (1) Cellulitis and abscess of left leg: Status: Acute Plan Pre patellar bursitis with skin breakdown. No surgical intervention currently warranted. Wound care- WTD TID IV abx Time Spent With Patient Time: Total time managing care of this patient today ____ minutes. Procedures Date of Service Date of Service: 04/19/23
[2023-04-19] MEDS: Doxycycline Monohydrate 100 MG CAPSULE PO (14:19)
[2023-04-19 15:38] VITALS: BP 115/55; PULSE 57; RESP 15; TEMP 36.4; O2SAT 95
[2023-04-19 16:25] LABS: Glucose, Whole Blood 161 mg/dL (60-115)
[2023-04-19 19:29] LABS: Vancomycin Random 16.4 mcg/mL (15-20)
[2023-04-19 19:44] VITALS: BP 119/66; PULSE 54; RESP 14; TEMP 35.9; O2SAT 91
[2023-04-19] MEDS: VerapamiL HCL SR 240 MG TABLET.ER PO (20:29)
[2023-04-19] MEDS: Prazosin HCL 5 MG CAPSULE PO (20:29)
[2023-04-19] MEDS: traZODone HCL 100 MG TABLET 200 MG PO (20:29)
[2023-04-19] MEDS: Atorvastatin Calcium 80 MG TABLET PO (20:30)
[2023-04-19] MEDS: Insulin Glargine,Hum.rec.anlog 100 UNIT/ML 10 ML VIAL 10 UNIT SUBCUT (20:37)
[2023-04-20] MEDS: Doxycycline Monohydrate 100 MG CAPSULE PO ×2 (00:13→12:14)
[2023-04-20 01:22] LABS: Glucose, Whole Blood 194 mg/dL (60-115)
[2023-04-20 04:00] VITALS: BP 120/64; PULSE 65; RESP 16; TEMP 36.1; O2SAT 92
[2023-04-20] MEDS: cefEPime HCl 2 GM in 0.9 % Sodium Chloride 50 ML IV ×3 (04:03→21:05)
[2023-04-20] MEDS: Omeprazole 20 MG CAPSULE.DR PO (05:37)
[2023-04-20 07:18] LABS: Glucose, Whole Blood 117 mg/dL (60-115)
[2023-04-20 07:19] VITALS: BP 140/71; PULSE 57; RESP 18; TEMP 36.2; O2SAT 91
[2023-04-20 07:34] LABS: Creatinine Clr Calc Pharmacy 78.5; Estimated Glomerular Filt Rate 56
[2023-04-20] MEDS: Fluticasone/Vilanterol 100/25 BLST.W.DEV 1 PUFF INHALE (08:11)
[2023-04-20 08:14] VITALS: PULSE 57; RESP 18; O2SAT 92
[2023-04-20] MEDS: buPROPion HCl XL 300 MG TAB.ER.24H PO (09:05)
[2023-04-20] MEDS: Calcium + Vitamin D 250 MG TABLET 500 MG PO ×2 (09:05→21:05)
[2023-04-20] MEDS: Losartan Potassium 50 MG TABLET 150 MG PO (09:05)
[2023-04-20] MEDS: Isosorbide Mononitrate 30 MG TAB.ER.24H 90 MG PO (09:05)
[2023-04-20] MEDS: 0.9 % Sodium Chloride Flush 3 ML SYRINGE IVFLUSH ×3 (09:05→21:06)
[2023-04-20] MEDS: Sertraline HCL 25 MG TABLET PO (09:05)
[2023-04-20] MEDS: Loratadine 10 MG TABLET PO (09:06)
[2023-04-20] MEDS: hydrALAZINE HCl 50 MG TABLET PO ×4 (09:06→21:05)
[2023-04-20] MEDS: cloNIDine HCL 0.1 MG TABLET PO (09:06)
[2023-04-20] MEDS: Heparin Sodium,Porcine 5,000 UNIT/ML VIAL 5000 UNIT SUBCUT ×2 (09:06→21:04)
[2023-04-20] MEDS: carvediloL 25 MG TABLET PO ×2 (09:06→21:06)
[2023-04-20] MEDS: Empagliflozin 10 MG TABLET PO (09:06)
[2023-04-20] MEDS: Clopidogrel Bisulfate 75 MG TABLET PO (09:06)
[2023-04-20] MEDS: Cholecalciferol (Vitamin D3) 25 MCG TABLET PO (09:06)
[2023-04-20] MEDS: Nystatin Powder 15 GM BOTTLE 1 APPL TOPICAL ×2 (10:14→21:06)
[2023-04-20] MEDS: Fluticasone Propionate Nasal 16 GM SPRAY 2 SPRAY NOSTRIL-B (10:14)
--- NOTE | 2023-04-20 10:56 | PM.PNORT ---
Subjective Subjective Date of Service: 04/20/23 Principal diagnosis: left leg cellulitis Interval history: Feels like he can move his leg more comfortably today no overnight events Physical Exam Vital Signs: Vital Signs: Last Vital Signs Temp 97.1 F 04/20/23 07:19 Pulse 57 04/20/23 08:14 Resp 18 04/20/23 08:14 BP 140/71 H 04/20/23 07:19 Pulse Ox 91 L 04/20/23 07:19 O2 Del Method CPAP 04/20/23 07:19 O2 Flow Rate 2 04/17/23 07:02 BMI result Body Mass Index 49.3 Extrem: Other: infrapatellar skin ulceration wihtout fluctuance no erythema Procedures Date of Service Date of Service: 04/20/23 Progress Note: A&P Assessment and plan (1) Cellulitis of left lower extremity: Status: Acute Assessment and Plan: Cont WTD and IV abx Consider wound consult (2) Cellulitis and abscess of left leg: Status: Acute Time Spent With Patient Time: Total time managing care of this patient today ____ minutes. Quality Stroke Does the patient have a stroke diagnosis?: No VTE Prior VTE?: No VTE Risk Level:: Medical - moderate - high VTE Device Contraindication: Treatment Not Indicated VTE Drug Contraindication: N/A - Med Ordered
[2023-04-20 11:36] LABS: Glucose, Whole Blood 169 mg/dL (60-115)
[2023-04-20] MEDS: Insulin Lispro 100 UNIT/ML 3 ML VIAL SUBCUT ×3 (12:14→21:04)
--- NOTE | 2023-04-20 14:24 | HO.PM.IMPN ---
Subjective Subjective Date of Service: 04/20/23 Interval History: feeling better today denies knee pain able to bend knee, denies fever chills no other acute issues overnight, tolerating diet with nausea, no vomiting, no abdominal pain or diarrhea. Review of Systems All other system reviewed and negative. Physical Exam Vital Signs: Vital Signs: Last Vital Signs Temp 97.1 F 04/20/23 07:19 Pulse 57 04/20/23 08:14 Resp 18 04/20/23 08:14 BP 140/71 H 04/20/23 07:19 Pulse Ox 91 L 04/20/23 07:19 O2 Del Method CPAP 04/20/23 07:19 O2 Flow Rate 2 04/17/23 07:02 BMI result Body Mass Index 49.3 Const: Other: Constitutional : Awake, alert in noacute distress Neck : Normal inspection, Supple Cardiovascular : RRR, no?jvd Respiratory :?good bilateral air entry,? no crackles, wheezes or rhonchi Gastrointestinal:? soft, Normal bowel sounds, Non tender Left lower extremity, redness swelling and tenderness significantly improved, infrapatellar ulceration , no drainage noted, no fluctuation, no induration Neurological : Alert &?oriented x3, No focal deficit. Psych appropriate affect Objective Data Active Medications Acetaminophen (Acetaminophen 325 Mg Tablet) 650 mg PO Q6H PRN PRN Reason: Pain, Mild (Pain Scale 1-3) Last Admin: 04/16/23 20:40 Dose: 650 mg Documented By: PHOEBE-COLTLA Acetaminophen/Butalbital/Caffeine (Butalb/Acetamin/Caff 50/325/40 Tablet) 1 tab PO Q8H PRN PRN Reason: headache Albuterol Sulfate (Albuterol Sulfate (0.083%) 2.5 Mg/3 Ml Vial.Neb) 2.5 mg INHALE Q4H PRN PRN Reason: Shortness Of Breath Albuterol Sulfate (Albuterol Sulfate 90 Mcg 8 Gm Inhaler) 2 puff INHALE Q4H PRN PRN Reason: Wheezing Amlodipine Besylate (Amlodipine Besylate 10 Mg Tablet) 10 mg PO BEDTIME [facility]; Protocol Last Admin: 04/15/23 22:35 Dose: 10 mg Documented By: ROBYN Atorvastatin Calcium (Atorvastatin Calcium 80 Mg Tablet) 80 mg PO BEDTIME [facility] Last Admin: 04/19/23 20:30 Dose: 80 mg Documented By: VERN Bupropion HCl (Bupropion Hcl Xl 300 Mg Tab.Er.24h) 300 mg PO DAILY [facility] Last Admin: 04/20/23 09:05 Dose: 300 mg Documented By: AMARI Calcium Carbonate/Cholecalciferol (Calcium + Vitamin D 250 Mg Tablet) 500 mg PO BID [facility] Last Admin: 04/20/23 09:05 Dose: 500 mg Documented By: AMARI Carvedilol (Carvedilol 25 Mg Tablet) 25 mg PO BID [facility]; Protocol Last Admin: 04/20/23 09:06 Dose: 25 mg Documented By: AMARI Clonidine HCl (Clonidine Hcl 0.1 Mg Tablet) 0.1 mg PO DAILY [facility]; Protocol Last Admin: 04/20/23 09:06 Dose: 0.1 mg Documented By: AMARI Clopidogrel Bisulfate (Clopidogrel Bisulfate 75 Mg Tablet) 75 mg PO DAILY [facility] Last Admin: 04/20/23 09:06 Dose: 75 mg Documented By: AMARI Dextrose (Dextrose 50 % 25 Gm/50 Ml Syringe) 25 gm IVPUSH Q15M PRN; Protocol PRN Reason: per Hypoglycemia Standing Ord. Docusate Sodium (Docusate Sodium 100 Mg Capsule) 100 mg PO DAILY PRN PRN Reason: Constipation Doxycycline Monohydrate (Doxycycline Monohydrate 100 Mg Capsule) 100 mg PO Q12H [facility] Last Admin: 04/20/23 12:14 Dose: 100 mg Documented By: AMARI Empagliflozin (Empagliflozin 10 Mg Tablet) 10 mg PO DAILY [facility] Last Admin: 04/20/23 09:06 Dose: 10 mg Documented By: AMARI Fluticasone Propionate (Fluticasone Propionate Nasal 16 Gm [place]) 2 spray NOSTRIL-B DAILY [facility] Last Admin: 04/20/23 10:14 Dose: 2 spray Documented By: AMARI Fluticasone/Vilanterol (Fluticasone/Vilanterol 100/25 Blst.W.Dev) 1 puff INHALE RDAILY [facility] Last Admin: 04/20/23 08:11 Dose: 1 puff Documented By: MAURICIO Furosemide (Furosemide 20 Mg Tablet) 20 mg PO BID [facility]; Protocol Last Admin: 04/15/23 22:35 Dose: 20 mg Documented By: ROBYN Furosemide (Furosemide 40 Mg Tablet) 40 mg PO BID [facility]; Protocol Last Admin: 04/15/23 22:35 Dose: 40 mg Documented By: ROBYN Glucose (Glucose Gel 15 Gm Gel..Gram.) 15 gm PO Q15M PRN; Protocol PRN Reason: per Hypoglycemia Standing Ord. Heparin Sodium (Porcine) (Heparin Sodium,Porcine 5,000 Unit/Ml Vial) 5,000 unit SUBCUT Q12H [facility] Last Admin: 04/20/23 09:06 Dose: 5,000 unit Documented By: AMARI Hydralazine HCl (Hydralazine Hcl 50 Mg Tablet) 50 mg PO QID [facility]; Protocol Last Admin: 04/20/23 13:16 Dose: 50 mg Documented By: AMARI Cefepime HCl 2 gm/ Sodium (Chloride) 50 mls @ 100 mls/hr IV Q8H [facility] Last Infusion: 04/20/23 13:49 Dose: 0 mls/hr Documented By: AMARI Insulin Glargine (Insulin Glargine,Hum.Rec.Anlog 100 Unit/Ml 10 Ml Vial) 10 unit SUBCUT BEDTIME [facility] Last Admin: 04/19/23 20:37 Dose: 10 unit Documented By: VERN Insulin Human Lispro (Insulin Lispro 100 Unit/Ml 3 Ml Vial) 0 unit SUBCUT QIDACHS [facility]; Protocol Last Admin: 04/20/23 12:14 Dose: 2 unit Documented By: AMARI Isosorbide Mononitrate (Isosorbide Mononitrate 30 Mg Tab.Er.24h) 90 mg PO DAILY [facility]; Protocol Last Admin: 04/20/23 09:05 Dose: 90 mg Documented By: AMARI Loratadine (Loratadine 10 Mg Tablet) 10 mg PO DAILY [facility] Last Admin: 04/20/23 09:06 Dose: 10 mg Documented By: AMARI Losartan Potassium (Losartan Potassium 50 Mg Tablet) 150 mg PO DAILY [facility]; Protocol Last Admin: 04/20/23 09:05 Dose: 150 mg Documented By: AMARI Morphine Sulfate (Morphine Sulfate 4 Mg/Ml Cartridge) 2 mg IVPUSH ONCE PRN; Protocol PRN Reason: Pre-Tim wrap placement Last Admin: 04/18/23 10:37 Dose: 2 mg Documented By: SAMUEL Nystatin (Nystatin Powder 15 Gm Bottle) 1 appl TOPICAL BID [facility] Last Admin: 04/20/23 10:14 Dose: 1 appl Documented By: AMARI Omeprazole (Omeprazole 20 Mg Capsule.Dr) 20 mg PO DAILY@0630 [facility] Last Admin: 04/20/23 05:37 Dose: 20 mg Documented By: VERN Ondansetron HCl (Ondansetron Hcl 4 Mg/2 Ml Vial) 4 mg IVPUSH Q8H PRN PRN Reason: Nausea and Vomiting Pharmacy Consult (Consult Rx Perform Med Rec) 1 each MISCELLANE ONCE PRN PRN Reason: Consult order Pharmacy Consult (Consult Rx Vancomycin Dosing) 1 each MISCELLANE DAILY PRN PRN Reason: Consult order Prazosin HCl (Prazosin Hcl 5 Mg Capsule) 5 mg PO BEDTIME [facility]; Protocol Last Admin: 04/19/23 20:29 Dose: 5 mg Documented By: VERN Sertraline HCl (Sertraline Hcl 25 Mg Tablet) 25 mg PO DAILY [facility] Last Admin: 04/20/23 09:05 Dose: 25 mg Documented By: AMARI Sodium Chloride (0.9 % Sodium Chloride Flush 3 Ml Syringe) 3 ml IVFLUSH QSHIFT [facility] Last Admin: 04/20/23 09:05 Dose: 3 ml Documented By: AMARI Tiotropium Delta (Tiotropium Delta 2.5 Mcg Inhaler) 2 puff INHALE RDAILY [facility] Last Admin: 04/20/23 08:11 Dose: 2 puff Documented By: MAURICIO Tramadol HCl (Tramadol Hcl 50 Mg Tablet) 25 mg PO Q6H PRN PRN Reason: Pain, Severe (Pain Scale 7-10) Last Admin: 04/19/23 09:01 Dose: 25 mg Documented By: SAMUEL Trazodone HCl (Trazodone Hcl 100 Mg Tablet) 200 mg PO BEDTIME [facility] Last Admin: 04/19/23 20:29 Dose: 200 mg Documented By: VERN Verapamil HCl (Verapamil Hcl Sr 240 Mg Tablet.Er) 240 mg PO BEDTIME [facility]; Protocol Last Admin: 04/19/23 20:29 Dose: 240 mg Documented By: VERN Vitamin D (Cholecalciferol (Vitamin D3) 25 Mcg Tablet) 25 mcg PO DAILY [facility] Last Admin: 04/20/23 09:06 Dose: 25 mcg Documented By: AMARI Labs 04/18/23 06:34 04/20/23 07:11 Labs: Laboratory Results - last 24 hr 04/19/23 04/19/23 04/19/23 16:22 19:05 20:39 Estim Creat Clear Calc Estimated GFR POC Glucose 161 H 194 H Random Vancomycin 16.4 04/20/23 04/20/23 04/20/23 07:10 07:11 11:31 Estim Creat Clear Calc 78.5 Estimated GFR 56 POC Glucose 117 H 169 H Random Vancomycin Microbiology Microbiology Results: Microbiology 04/19/23 10:55 Gram Stain - Final Leg Left Routine Culture - Preliminary Culture in progress. Assessment and Plan (1) Cellulitis of left lower extremity: Status: Acute (2) Obstructive sleep apnea: Status: Acute (3) COPD (chronic obstructive pulmonary disease): Status: Acute (4) Acute on chronic right heart failure: Status: Acute Plan 62-year-old male with asthma/COPD overlap, coronary artery disease, [id number] type 2 diabetes, hyperlipidemia, hypertension, chronic normocytic anemia, obstructive sleep apnea not yet on CPAP but using supplemental O2 at bedtime, opioid dependence on methadone who is a current everyday smoker admitted for extensive cellulitis LLE #Acute extensive LLE cellulitis with open wound diagnosed to have prepatellar bursitis No further drainage noted to have open ulceration, will consult Wound Care appreciate Ortho and surgical consult, blood cultures no growth, WBC normal, s/p IV vanco , now on doxy 100 b.i.d.D1 and iv cefepime # Fluid overload 2/2 Acute on chronic right side heart failure last ECHO showed EF 55-60% normal BNP, s/p IV Lasix greater than 4 L negative , will resume Aldactone b.i.d., and Lasix low dose. # [id number] type 2 diabetes A1c 7.8, elevated blood sugars, started on Lantus at bedtime diabetic diet Humalog sliding scale, hold metformin # asthma/COPD overlap no acute exacerbation continue home inhalers, albuterol p.r.n # hypertension BP stable, on multiple antihypertensive medications and diuretics follow BP closely # ABDOULAYE with nocturnal hypoxemia supplemental O2 at bedtime, outpatient CPAP appointment # chronic normocytic anemia H/H baseline, above transfusion threshold # opioid dependence continue methadone # morbid obesity recommend low-calorie diet, and exercise. DVT prophylaxis-heparin Full code Patient requires inpatient stay for management of acute extensive left lower extremity cellulitis requiring IV antibiotics having failed outpt abx. Time Spent With Patient Time: Total time managing care of this patient today ____ minutes. Quality Stroke Does the patient have a stroke diagnosis?: No VTE Prior VTE?: No VTE Risk Level:: Medical - moderate - high VTE Device Contraindication: Treatment Not Indicated VTE Drug Contraindication: N/A - Med Ordered
[2023-04-20 15:29] VITALS: BP 127/60; PULSE 63; RESP 20; TEMP 36; O2SAT 94
[2023-04-20 16:20] LABS: Glucose, Whole Blood 191 mg/dL (60-115)
[2023-04-20 20:00] VITALS: BP 113/56; PULSE 58; RESP 20; TEMP 36; O2SAT 95
[2023-04-20 20:52] LABS: Glucose, Whole Blood 171 mg/dL (60-115)
[2023-04-20] MEDS: Insulin Glargine,Hum.rec.anlog 100 UNIT/ML 10 ML VIAL 10 UNIT SUBCUT (21:04)
[2023-04-20] MEDS: traZODone HCL 100 MG TABLET 200 MG PO (21:05)
[2023-04-20] MEDS: Prazosin HCL 5 MG CAPSULE PO (21:05)
[2023-04-20] MEDS: VerapamiL HCL SR 240 MG TABLET.ER PO (21:05)
[2023-04-20] MEDS: Atorvastatin Calcium 80 MG TABLET PO (21:05)
[2023-04-21] MEDS: Doxycycline Monohydrate 100 MG CAPSULE PO ×2 (01:15→11:59)
[2023-04-21 03:06] VITALS: BP 103/57; PULSE 51; RESP 16; TEMP 36.2; O2SAT 95
[2023-04-21] MEDS: cefEPime HCl 2 GM in 0.9 % Sodium Chloride 50 ML IV ×2 (05:14→13:52)
[2023-04-21] MEDS: Omeprazole 20 MG CAPSULE.DR PO (05:17)
[2023-04-21 06:16] LABS: Anion Gap 13 (12-20); Blood Urea Nitrogen 22 mg/dL (9-16); Calcium 9.7 mg/dL (8.4-10.2); Carbon Dioxide 31 mmol/L (22-29); Chloride 103 mmol/L (96-108); Creatinine Clr Calc Pharmacy 77.3; Estimated Glomerular Filt Rate 55; Glucose Random 129 mg/dL (60-115); Potassium 4.4 mmol/L (3.3-5.1); Sodium 143 mmol/L (135-145)
[2023-04-21 07:04] LABS: Glucose, Whole Blood 120 mg/dL (60-115)
[2023-04-21 07:24] VITALS: BP 120/52; PULSE 60; RESP 16; TEMP 36.5; O2SAT 93
--- NOTE | 2023-04-21 08:15 | PM.PNORT ---
Subjective Subjective Date of Service: 04/21/23 Principal diagnosis: left leg cellulitis Interval history: Feels better Moving legs comfortably Physical Exam Vital Signs: Vital Signs: Last Vital Signs Temp 97.7 F 04/21/23 07:24 Pulse 60 04/21/23 07:24 Resp 16 04/21/23 07:24 BP 120/52 L 04/21/23 07:24 Pulse Ox 93 04/21/23 07:24 O2 Del Method Nasal Cannula 04/21/23 07:24 O2 Flow Rate 2 04/21/23 07:24 BMI result Body Mass Index 49.3 Extrem: Other: pre patellar bursal skin with partial thickness loss with granulation tissue. no discharge no erythema no fluctuance Procedures Date of Service Date of Service: 04/21/23 Progress Note: A&P Assessment and plan (1) Cellulitis of left lower extremity: Status: Acute Assessment and Plan: Continue medical management with wound care consult pending. no orthopaedic intervention warranted. Time Spent With Patient Time: Total time managing care of this patient today ____ minutes. Quality Stroke Does the patient have a stroke diagnosis?: No VTE Prior VTE?: No VTE Risk Level:: Medical - moderate - high VTE Device Contraindication: Treatment Not Indicated VTE Drug Contraindication: N/A - Med Ordered
[2023-04-21] MEDS: Fluticasone/Vilanterol 100/25 BLST.W.DEV 1 PUFF INHALE (08:36)
[2023-04-21 08:47] VITALS: PULSE 60; RESP 16; O2SAT 90
[2023-04-21] MEDS: Isosorbide Mononitrate 30 MG TAB.ER.24H 90 MG PO (09:38)
[2023-04-21] MEDS: hydrALAZINE HCl 50 MG TABLET PO ×4 (09:40→20:48)
[2023-04-21] MEDS: buPROPion HCl XL 300 MG TAB.ER.24H PO (09:41)
[2023-04-21] MEDS: Losartan Potassium 50 MG TABLET 150 MG PO (09:41)
[2023-04-21] MEDS: cloNIDine HCL 0.1 MG TABLET PO (09:41)
[2023-04-21] MEDS: Sertraline HCL 25 MG TABLET PO (09:41)
[2023-04-21] MEDS: Spironolactone 25 MG TABLET PO (09:41)
[2023-04-21] MEDS: Loratadine 10 MG TABLET PO (09:42)
[2023-04-21] MEDS: Cholecalciferol (Vitamin D3) 25 MCG TABLET PO (09:42)
[2023-04-21] MEDS: carvediloL 25 MG TABLET PO ×2 (09:42→20:49)
[2023-04-21] MEDS: Heparin Sodium,Porcine 5,000 UNIT/ML VIAL 5000 UNIT SUBCUT ×2 (09:42→20:49)
[2023-04-21] MEDS: Calcium + Vitamin D 250 MG TABLET 500 MG PO ×2 (09:42→20:48)
[2023-04-21] MEDS: Clopidogrel Bisulfate 75 MG TABLET PO (09:42)
[2023-04-21] MEDS: Empagliflozin 10 MG TABLET PO (09:42)
[2023-04-21] MEDS: Nystatin Powder 15 GM BOTTLE 1 APPL TOPICAL ×2 (09:46→20:54)
[2023-04-21] MEDS: Fluticasone Propionate Nasal 16 GM SPRAY 2 SPRAY NOSTRIL-B (10:29)
[2023-04-21 11:11] LABS: Glucose, Whole Blood 175 mg/dL (60-115)
[2023-04-21] MEDS: Insulin Lispro 100 UNIT/ML 3 ML VIAL SUBCUT ×3 (11:58→20:50)
--- NOTE | 2023-04-21 13:02 | HO.WOUNDCONS ---
History of Present Illness Data of Consult Service Date: 04/21/23 Requesting physician: Angela Wray Primary Care Provider: Sasha You MD [facility] Reason for consult: Wound left prepatellar bursa area This is a 62-year-old gentleman with a complicated past medical history including congestive heart failure, obstructive sleep apnea, asthma/COPD, coronary artery disease, [id number] type 2 diabetes, hypertension who was admitted about 6 days ago for treatment of cellulitis of the left lower extremity and prepatellar bursitis. [facility] and was treated with oral antibiotics for left lower extremity cellulitis without improvement which led to this admission. He was noted to have a wound overlying the left prepatellar bursa. Today, he reports ongoing tenderness associated with the wound. [facility] Medical History Asthma Cellulitis of left lower extremity Chronic allergic rhinitis Chronic restrictive lung disease Cocaine abuse Congestive heart failure COPD (chronic obstructive pulmonary disease) Coronary artery disease Diabetes Hyperlipidemia Hypertension Normocytic anemia Obesity Obstructive sleep apnea Opioid abuse Osteopenia (~2015) Pulmonary nodule Smoker Streptococcal bacteremia Family History Father No problems noted. Mother No problems noted. Surgical History History of colonoscopy History of hernia repair History of orchiectomy, unilateral Social History Household Members: None Housing: Condominium Do you presently have visiting nurse or other home services: Yes Alcohol intake: never Patient Tobacco Use Status: Current everyday Tobacco user Tobacco use type: Cigarette Cigarette Packs Per Day: 1 Cigarettes Per Day: 20.0 Substance Use Type: Opiates service: No Current occupational status: disabled Current occupation: [employer] Meds Allergies Allergy/AdvReac Type Severity Reaction Status Date / Time crab [CRAB] Allergy Unknown ANAPHYLAXIS Verified 01/31/23 13:46 lisinopril [LISINOPRIL] Allergy Unknown cough Verified 01/31/23 13:46 Penicillins [PCN] Allergy Unknown RASH Verified 01/31/23 13:46 Sulfa (Sulfonamide Allergy Unknown RASH Verified 01/31/23 13:46 Antibiotics) [SULFA (SULFONAMIDE ANTIBIOTICS)] Active Medications: Current Medications Acetaminophen (Acetaminophen 325 Mg Tablet) 650 mg PO Q6H PRN PRN Reason: Pain, Mild (Pain Scale 1-3) Last Admin: 04/16/23 20:40 Dose: 650 mg Acetaminophen/Butalbital/Caffeine (Butalb/Acetamin/Caff 50/325/40 Tablet) 1 tab PO Q8H PRN PRN Reason: headache Albuterol Sulfate (Albuterol Sulfate (0.083%) 2.5 Mg/3 Ml Vial.Neb) 2.5 mg INHALE Q4H PRN PRN Reason: Shortness Of Breath Albuterol Sulfate (Albuterol Sulfate 90 Mcg 8 Gm Inhaler) 2 puff INHALE Q4H PRN PRN Reason: Wheezing Amlodipine Besylate (Amlodipine Besylate 10 Mg Tablet) 10 mg PO BEDTIME ELVIE; Protocol Last Admin: 04/15/23 22:35 Dose: 10 mg Atorvastatin Calcium (Atorvastatin Calcium 80 Mg Tablet) 80 mg PO BEDTIME ELVIE Last Admin: 04/20/23 21:05 Dose: 80 mg Bupropion HCl (Bupropion Hcl Xl 300 Mg Tab.Er.24h) 300 mg PO DAILY [facility] Last Admin: 04/21/23 09:41 Dose: 300 mg Calcium Carbonate/Cholecalciferol (Calcium + Vitamin D 250 Mg Tablet) 500 mg PO BID ELVIE Last Admin: 04/21/23 09:42 Dose: 500 mg Carvedilol (Carvedilol 25 Mg Tablet) 25 mg PO BID ELVIE; Protocol Last Admin: 04/21/23 09:42 Dose: 25 mg Clonidine HCl (Clonidine Hcl 0.1 Mg Tablet) 0.1 mg PO DAILY ELVIE; Protocol Last Admin: 04/21/23 09:41 Dose: 0.1 mg Clopidogrel Bisulfate (Clopidogrel Bisulfate 75 Mg Tablet) 75 mg PO DAILY [facility]VIE Last Admin: 04/21/23 09:42 Dose: 75 mg Dextrose (Dextrose 50 % 25 Gm/50 Ml Syringe) 25 gm IVPUSH Q15M PRN; Protocol PRN Reason: per Hypoglycemia Standing Ord. Docusate Sodium (Docusate Sodium 100 Mg Capsule) 100 mg PO DAILY PRN PRN Reason: Constipation Doxycycline Monohydrate (Doxycycline Monohydrate 100 Mg Capsule) 100 mg PO Q12H ELVIE Last Admin: 04/21/23 11:59 Dose: 100 mg Empagliflozin (Empagliflozin 10 Mg Tablet) 10 mg PO DAILY [facility] Last Admin: 04/21/23 09:42 Dose: 10 mg Fluticasone Propionate (Fluticasone Propionate Nasal 16 Gm [place]) 2 spray NOSTRIL-B DAILY [facility] Last Admin: 04/21/23 10:29 Dose: 2 spray Fluticasone/Vilanterol (Fluticasone/Vilanterol 100/25 Blst.W.Dev) 1 puff INHALE RDAILY [facility] Last Admin: 04/21/23 08:36 Dose: 1 puff Furosemide (Furosemide 20 Mg Tablet) 20 mg PO BID [facility]; Protocol Last Admin: 04/15/23 22:35 Dose: 20 mg Furosemide (Furosemide 40 Mg Tablet) 40 mg PO BID [facility]; Protocol Last Admin: 04/15/23 22:35 Dose: 40 mg Glucose (Glucose Gel 15 Gm Gel..Gram.) 15 gm PO Q15M PRN; Protocol PRN Reason: per Hypoglycemia Standing Ord. Heparin Sodium (Porcine) (Heparin Sodium,Porcine 5,000 Unit/Ml Vial) 5,000 unit SUBCUT Q12H [facility] Last Admin: 04/21/23 09:42 Dose: 5,000 unit Hydralazine HCl (Hydralazine Hcl 50 Mg Tablet) 50 mg PO QID [facility]; Protocol Last Admin: 04/21/23 09:40 Dose: 50 mg Cefepime HCl 2 gm/ Sodium (Chloride) 50 mls @ 100 mls/hr IV Q8H [facility] Last Infusion: 04/21/23 05:50 Dose: Infused Insulin Glargine (Insulin Glargine,Hum.Rec.Anlog 100 Unit/Ml 10 Ml Vial) 10 unit SUBCUT BEDTIME [facility] Last Admin: 04/20/23 21:04 Dose: 10 unit Insulin Human Lispro (Insulin Lispro 100 Unit/Ml 3 Ml Vial) 0 unit SUBCUT QIDACHS [facility]; Protocol Last Admin: 04/21/23 11:58 Dose: 2 unit Isosorbide Mononitrate (Isosorbide Mononitrate 30 Mg Tab.Er.24h) 90 mg PO DAILY [facility]; Protocol Last Admin: 04/21/23 09:38 Dose: 90 mg Loratadine (Loratadine 10 Mg Tablet) 10 mg PO DAILY [facility] Last Admin: 04/21/23 09:42 Dose: 10 mg Losartan Potassium (Losartan Potassium 50 Mg Tablet) 150 mg PO DAILY [facility]; Protocol Last Admin: 04/21/23 09:41 Dose: 150 mg Nystatin (Nystatin Powder 15 Gm Bottle) 1 appl TOPICAL BID [facility] Last Admin: 04/21/23 09:46 Dose: 1 appl Omeprazole (Omeprazole 20 Mg Capsule.Dr) 20 mg PO DAILY@0630 [facility] Last Admin: 04/21/23 05:17 Dose: 20 mg Ondansetron HCl (Ondansetron Hcl 4 Mg/2 Ml Vial) 4 mg IVPUSH Q8H PRN PRN Reason: Nausea and Vomiting Pharmacy Consult (Consult Rx Vancomycin Dosing) 1 each MISCELLANE DAILY PRN PRN Reason: Consult order Prazosin HCl (Prazosin Hcl 5 Mg Capsule) 5 mg PO BEDTIME [facility]; Protocol Last Admin: 04/20/23 21:05 Dose: 5 mg Sertraline HCl (Sertraline Hcl 25 Mg Tablet) 25 mg PO DAILY [facility] Last Admin: 04/21/23 09:41 Dose: 25 mg Sodium Chloride (0.9 % Sodium Chloride Flush 3 Ml Syringe) 3 ml IVFLUSH QSHIFT [facility] Last Admin: 04/21/23 09:00 Dose: Not Given Spironolactone (Spironolactone 25 Mg Tablet) 25 mg PO DAILY [facility]; Protocol Last Admin: 04/21/23 09:41 Dose: 25 mg Tiotropium [place] (Tiotropium [place] 2.5 Mcg Inhaler) 2 puff INHALE RDAILY [facility] Last Admin: 04/21/23 08:36 Dose: 2 puff Tramadol HCl (Tramadol Hcl 50 Mg Tablet) 25 mg PO Q6H PRN PRN Reason: Pain, Severe (Pain Scale 7-10) Last Admin: 04/19/23 09:01 Dose: 25 mg Trazodone HCl (Trazodone Hcl 100 Mg Tablet) 200 mg PO BEDTIME [facility] Last Admin: 04/20/23 21:05 Dose: 200 mg Verapamil HCl (Verapamil Hcl Sr 240 Mg Tablet.Er) 240 mg PO BEDTIME [facility]; Protocol Last Admin: 04/20/23 21:05 Dose: 240 mg Vitamin D (Cholecalciferol (Vitamin D3) 25 Mcg Tablet) 25 mcg PO DAILY [facility] Last Admin: 04/21/23 09:42 Dose: 25 mcg Home Medications Medication Instructions Recorded Confirmed Last Taken Type amlodipine 10 mg tablet 10 mg PO BEDTIME 02/12/21 04/15/23 06/09/22 History bupropion HCl 150 mg tablet,12 hr 150 mg PO BID 02/12/21 04/15/23 06/10/22 History sustained-release calcium carbonate 500 mg-vitamin 1 tab PO BID 02/12/21 04/15/23 06/10/22 History D3 10 mcg (400 unit) tablet (Oyster Shell Calcium-Vitamin D3) carvedilol 25 mg tablet 25 mg PO BID 02/12/21 04/15/23 06/10/22 History cholecalciferol (vitamin D3) 25 1,000 unit PO DAILY 02/12/21 04/15/23 06/10/22 History mcg (1,000 unit) tablet clopidogrel 75 mg tablet 75 mg PO DAILY 02/12/21 04/15/23 06/10/22 History fluticasone propionate 50 2 spray intranasal DAILY 02/12/21 04/15/23 06/10/22 History mcg/actuation nasal spray,suspension furosemide 40 mg tablet 40 mg PO BID 02/12/21 04/15/23 06/10/22 History hydralazine 100 mg tablet 100 mg PO QID 02/12/21 04/15/23 06/10/22 History isosorbide mononitrate 30 mg 90 mg PO DAILY 02/12/21 04/15/23 06/10/22 History tablet,extended release 24 hr losartan 100 mg tablet 150 mg PO DAILY 02/12/21 04/15/23 06/10/22 History metformin 500 mg tablet 500 mg PO BIDWM 02/12/21 04/15/23 06/10/22 History omeprazole 20 mg capsule,delayed 20 mg PO DAILY@0630 02/12/21 04/15/23 06/10/22 History release rosuvastatin 40 mg tablet 40 mg PO BEDTIME 02/12/21 04/15/23 06/09/22 History spironolactone 25 mg tablet 25 mg PO BID@0900,1200 02/12/21 04/15/23 06/10/22 History trazodone 100 mg tablet 200 mg PO BEDTIME 10/16/21 04/15/23 06/09/22 History methadone 10 mg/5 mL oral solution 35 mg PO DAILY 04/02/22 06/10/22 06/10/22 History albuterol sulfate 2.5 mg/3 mL 1 amp inhalation Q4-6H PRN 06/08/22 04/15/23 Unknown History (0.083 %) solution for nebulization Shortness Of Breath clonidine HCl 0.1 mg tablet 1 tab PO DAILY 06/08/22 04/15/23 06/10/22 History empagliflozin 10 mg tablet 10 mg PO DAILY 06/08/22 04/15/23 06/10/22 History (Jardiance) fluticasone 250 mcg-salmeterol 50 1 puff inhalation BID 06/08/22 04/15/23 06/10/22 History mcg/dose blistr powdr for inhalation (Advair Diskus) tiotropium bromide 18 mcg capsule 1 cap inhalation DAILY 06/08/22 04/15/23 06/10/22 History with inhalation device (Spiriva with HandiHaler) verapamil 240 mg tablet,extended 240 mg PO BEDTIME 06/08/22 04/15/23 06/09/22 History release acetaminophen 650 mg 2 tab PO Q8H PRN Pain (Scale Score 06/10/22 04/15/23 Unknown History tablet,extended release 1-3) nebulizers 10/25/22 Unknown History Oxygen Home Use 10/31/22 Unknown History cefuroxime axetil 250 mg tablet 250 mg PO BID 04/15/23 04/15/23 Unknown History furosemide 20 mg tablet 20 mg PO BID 04/15/23 04/15/23 Unknown History loratadine 10 mg tablet 10 mg PO QAM 04/15/23 04/15/23 Unknown History prazosin 5 mg capsule 5 mg PO BEDTIME 04/15/23 04/15/23 Unknown History sertraline 25 mg tablet 25 mg PO QAM 04/15/23 04/15/23 Unknown History Physical Exam Vital Signs and Narrative: Vital Signs: Last Vital Signs Temp 97.7 F 04/21/23 07:24 Pulse 60 04/21/23 08:47 Resp 16 04/21/23 08:47 BP 120/52 L 04/21/23 07:24 Pulse Ox 93 04/21/23 07:24 O2 Del Method Nasal Cannula 04/21/23 07:24 O2 Flow Rate 2 04/21/23 07:24 BMI result Body Mass Index 49.3 Alert, appears comfortable Skin: Other: Irregular open wounds are present left prepatellar bursa area extending into superficial subcutaneous tissues. The wound bed shows a mixture of granulation tissue and some superficial slough and exudate. No periwound erythema. Moderate chronic edema. Results Labs 04/18/23 06:34 04/21/23 05:36 Labs: Laboratory Results - last 24 hr 04/20/23 04/20/23 04/21/23 16:14 20:45 05:36 Anion Gap 13 Estim Creat Clear Calc 77.3 Estimated GFR 55 POC Glucose 191 H 171 H Random Glucose 129 H Calcium 9.7 04/21/23 04/21/23 07:00 11:07 Anion Gap Estim Creat Clear Calc Estimated GFR POC Glucose 120 H 175 H Random Glucose Calcium Assessment and Plan (1) Non-pressure chronic ulcer of left lower leg with fat layer exposed: Status: Acute (2) Chronic venous hypertension (idiopathic) with ulcer of left lower extremity: Status: Acute Plan Recommend daily calcium alginate with silver dressings, elevation of legs when sitting. Resume compression therapy 1 cellulitis has resolved. [facility] after [facility]. Please call wound care team if reassessment is required during the current hospitalization. Time Spent With Patient Time: Total time managing care of this patient today ____ minutes.
[2023-04-21 13:50] VITALS: BP 103/55; PULSE 57
--- NOTE | 2023-04-21 14:34 | P.CDIM_ITS ---
PROVIDER RESPONSE TEXT: To clarify, the appropriate diagnosis supported by the clinical indicators: No, Cellulitis is not related to / associated with / due to DM QUERY TEXT: PHYSICIAN'S DOCUMENTATION REQUEST Date of Query: 04/21/2023 08:43 AM EDT Patient Name: Christine Meier Admit Date: 04/16/2023 Dear Angela Wray, A review of the medical record indicates additional documentation may be needed. Please review below and update the documentation accordingly. Documentation includes the conditions of Acute extensive LLE cellulitis with open wound and non-insul in-dependent type 2 diabetes. Clinical Indicators: Per Hospitalist Progress note 04/20/23: Left lower extremity, redness swelling and tenderness significantly improved, infrapatellar ulceratio n , no drainage noted, no fluctuation, no induration Please clarify the relationship between these conditions: Yes, Cellulitis is related to / associated with / due to DM No, Cellulitis is not related to / associated with / due to DM Other (explain)Clinically unable to determine (explain)Thank you, Kyleigh Valentine RN Use of terms such as suspected, likely, concern for, or probable (associated with a specific diagnosi s that is being evaluated, monitored, or treated as if it exists) are acceptable and can be coded in the inpatient se tting, when documented at the time of discharge. Please use your independent medical judgment in providing your response. THIS QUERY IS PART OF THE PERMANENT MEDICAL RECORD
[2023-04-21 15:09] VITALS: BP 106/58; PULSE 53; RESP 18; TEMP 36; O2SAT 93
--- NOTE | 2023-04-21 15:55 | MHC.CM.PN ---
TITI SPOKE TO [facility] [phone] AND PROVIDED UPDATES ON PTS DCP SHE REQUESTS SHE BE CALLED WHEN PT IS GOING TO DC PT WILL DC HOME WITH RESUMPTION OF [facility] (WITH NEW WOUND CARE ORDERS) AND [facility] ASSISTED LIVING SERVICES [facility] ASSISTED LIVING TO TRANSPORT
--- NOTE | 2023-04-21 16:01 | P.PNIM_ITS ---
Subjective Subjective Date of Service: 04/22/23 Interval History: denies knee pain or discomfort less drainage from left knee wound, denies fever chills,-out of bed to chair tolerating diet no fever, no chills, no other acute issues overnight. Review of Systems All other system reviewed and negative. Physical Exam Vital Signs: Vital Signs: Last Vital Signs Temp 96.8 F 04/21/23 15:09 Pulse 53 04/21/23 15:09 Resp 18 04/21/23 15:09 BP 106/58 L 04/21/23 15:09 Pulse Ox 93 04/21/23 15:09 O2 Del Method Nasal Cannula 04/21/23 15:09 O2 Flow Rate 2.0 04/21/23 15:09 BMI result Body Mass Index 49.3 Const: Other: Constitutional : A wake, alert in anuja cute distress Neck : Normal inspecti on, Supple Cardiov ascular : RRR, no? jvd Respiratory :? good bilateral air entry,? no crackl es, wheezes or rho nchi Gastrointesti nal:? soft, Normal bowel sounds, Non tender Left lower extremity, rednes s swelling and ten derness? resolved, ? infrapatellar ul ceration , serous drainage noted, no fluctuation, no i nduration Neurolog ical : Alert &?semaj ented x3, No focal deficit. Psych ap propriate affect Objective Data Active Medications Acetaminophen (Acetaminophen 325 Mg Tablet) 650 mg PO Q6H PRN PRN Reason: Pain, Mild (Pain Scale 1-3) Last Admin: 04/16/23 20:40 Dose: 650 mg Documented By: MORELIA Acetaminophen/Butalbital/Caffeine (Butalb/Acetamin/Caff 50/325/40 Tablet) 1 tab PO Q8H PRN PRN Reason: headache Albuterol Sulfate (Albuterol Sulfate (0.083%) 2.5 Mg/3 Ml Vial.Neb) 2.5 mg INHALE Q4H PRN PRN Reason: Shortness Of Breath Albuterol Sulfate (Albuterol Sulfate 90 Mcg 8 Gm Inhaler) 2 puff INHALE Q4H PRN PRN Reason: Wheezing Amlodipine Besylate (Amlodipine Besylate 10 Mg Tablet) 10 mg PO BEDTIME [facility]; Protocol Last Admin: 04/15/23 22:35 Dose: 10 mg Documented By: ROBYN Atorvastatin Calcium (Atorvastatin Calcium 80 Mg Tablet) 80 mg PO BEDTIME [facility] Last Admin: 04/20/23 21:05 Dose: 80 mg Documented By: VERN Bupropion HCl (Bupropion Hcl Xl 300 Mg Tab.Er.24h) 300 mg PO DAILY [facility] Last Admin: 04/21/23 09:41 Dose: 300 mg Documented By: PATIENCE Calcium Carbonate/Cholecalciferol (Calcium + Vitamin D 250 Mg Tablet) 500 mg PO BID [facility] Last Admin: 04/21/23 09:42 Dose: 500 mg Documented By: PATIENCE Carvedilol (Carvedilol 25 Mg Tablet) 25 mg PO BID [facility]; Protocol Last Admin: 04/21/23 09:42 Dose: 25 mg Documented By: PATIENCE Clonidine HCl (Clonidine Hcl 0.1 Mg Tablet) 0.1 mg PO DAILY [facility]; Protocol Last Admin: 04/21/23 09:41 Dose: 0.1 mg Documented By: PATIENCE Clopidogrel Bisulfate (Clopidogrel Bisulfate 75 Mg Tablet) 75 mg PO DAILY [facility] Last Admin: 04/21/23 09:42 Dose: 75 mg Documented By: PATIENCE Dextrose (Dextrose 50 % 25 Gm/50 Ml Syringe) 25 gm IVPUSH Q15M PRN; Protocol PRN Reason: per Hypoglycemia Standing Ord. Docusate Sodium (Docusate Sodium 100 Mg Capsule) 100 mg PO DAILY PRN PRN Reason: Constipation Doxycycline Monohydrate (Doxycycline Monohydrate 100 Mg Capsule) 100 mg PO Q12H [facility] Last Admin: 04/21/23 11:59 Dose: 100 mg Documented By: PATIENCE Empagliflozin (Empagliflozin 10 Mg Tablet) 10 mg PO DAILY [facility] Last Admin: 04/21/23 09:42 Dose: 10 mg Documented By: PATIENCE Fluticasone Propionate (Fluticasone Propionate Nasal 16 Gm [place]) 2 spray NOSTRIL-B DAILY [facility] Last Admin: 04/21/23 10:29 Dose: 2 spray Documented By: PATIENCE Fluticasone/Vilanterol (Fluticasone/Vilanterol 100/25 Blst.W.Dev) 1 puff INHALE RDAILY [facility] Last Admin: 04/21/23 08:36 Dose: 1 puff Documented By: MAURICIO Furosemide (Furosemide 20 Mg Tablet) 20 mg PO BID [facility]; Protocol Last Admin: 04/15/23 22:35 Dose: 20 mg Documented By: ROBYN Furosemide (Furosemide 40 Mg Tablet) 40 mg PO BID [facility]; Protocol Last Admin: 04/15/23 22:35 Dose: 40 mg Documented By: ROBYN Glucose (Glucose Gel 15 Gm Gel..Gram.) 15 gm PO Q15M PRN; Protocol PRN Reason: per Hypoglycemia Standing Ord. Heparin Sodium (Porcine) (Heparin Sodium,Porcine 5,000 Unit/Ml Vial) 5,000 unit SUBCUT Q12H [facility] Last Admin: 04/21/23 09:42 Dose: 5,000 unit Documented By: PATIENCE Hydralazine HCl (Hydralazine Hcl 50 Mg Tablet) 50 mg PO QID [facility]; Protocol Last Admin: 04/21/23 13:52 Dose: 50 mg Documented By: PATIENCE Cefepime HCl 2 gm/ Sodium (Chloride) 50 mls @ 100 mls/hr IV Q8H [facility] Last Infusion: 04/21/23 14:28 Dose: 0 mls/hr Documented By: PATIENCE Insulin Glargine (Insulin Glargine,Hum.Rec.Anlog 100 Unit/Ml 10 Ml Vial) 10 unit SUBCUT BEDTIME [facility] Last Admin: 04/20/23 21:04 Dose: 10 unit Documented By: VERN Insulin Human Lispro (Insulin Lispro 100 Unit/Ml 3 Ml Vial) 0 unit SUBCUT QIDACHS [facility]; Protocol Last Admin: 04/21/23 11:58 Dose: 2 unit Documented By: PATIENCE Isosorbide Mononitrate (Isosorbide Mononitrate 30 Mg Tab.Er.24h) 90 mg PO DAILY [facility]; Protocol Last Admin: 04/21/23 09:38 Dose: 90 mg Documented By: PATIENCE Loratadine (Loratadine 10 Mg Tablet) 10 mg PO DAILY [facility] Last Admin: 04/21/23 09:42 Dose: 10 mg Documented By: PATIENCE Losartan Potassium (Losartan Potassium 50 Mg Tablet) 150 mg PO DAILY [facility]; Protocol Last Admin: 04/21/23 09:41 Dose: 150 mg Documented By: PATIENCE Nystatin (Nystatin Powder 15 Gm Bottle) 1 appl TOPICAL BID [facility] Last Admin: 04/21/23 09:46 Dose: 1 appl Documented By: PATIENCE Omeprazole (Omeprazole 20 Mg Capsule.Dr) 20 mg PO DAILY@0630 [facility] Last Admin: 04/21/23 05:17 Dose: 20 mg Documented By: VERN Ondansetron HCl (Ondansetron Hcl 4 Mg/2 Ml Vial) 4 mg IVPUSH Q8H PRN PRN Reason: Nausea and Vomiting Pharmacy Consult (Consult Rx Vancomycin Dosing) 1 each MISCELLANE DAILY PRN PRN Reason: Consult order Prazosin HCl (Prazosin Hcl 5 Mg Capsule) 5 mg PO BEDTIME [facility]; Protocol Last Admin: 04/20/23 21:05 Dose: 5 mg Documented By: VERN Sertraline HCl (Sertraline Hcl 25 Mg Tablet) 25 mg PO DAILY [facility] Last Admin: 04/21/23 09:41 Dose: 25 mg Documented By: PATIENCE Sodium Chloride (0.9 % Sodium Chloride Flush 3 Ml Syringe) 3 ml IVFLUSH QSHIFT [facility] Last Admin: 04/21/23 09:00 Dose: Not Given Documented By: PATIENCE Non-Admin Reason: No Access Spironolactone (Spironolactone 25 Mg Tablet) 25 mg PO DAILY [facility]; Protocol Last Admin: 04/21/23 09:41 Dose: 25 mg Documented By: PATIENCE Tiotropium Dixon (Tiotropium Dixon 2.5 Mcg Inhaler) 2 puff INHALE RDAILY [facility] Last Admin: 04/21/23 08:36 Dose: 2 puff Documented By: MAURICIO Tramadol HCl (Tramadol Hcl 50 Mg Tablet) 25 mg PO Q6H PRN PRN Reason: Pain, Severe (Pain Scale 7-10) Last Admin: 04/19/23 09:01 Dose: 25 mg Documented By: SAMUEL Trazodone HCl (Trazodone Hcl 100 Mg Tablet) 200 mg PO BEDTIME [facility] Last Admin: 04/20/23 21:05 Dose: 200 mg Documented By: VERN Verapamil HCl (Verapamil Hcl Sr 240 Mg Tablet.Er) 240 mg PO BEDTIME [facility]; Protocol Last Admin: 04/20/23 21:05 Dose: 240 mg Documented By: VERN Vitamin D (Cholecalciferol (Vitamin D3) 25 Mcg Tablet) 25 mcg PO DAILY [facility] Last Admin: 04/21/23 09:42 Dose: 25 mcg Documented By: PATIENCE Labs 04/18/23 06:34 04/21/23 05:36 Labs: Laboratory Results - last 24 hr 04/20/23 04/20/23 04/21/23 16:14 20:45 05:36 Anion Gap 13 Estim Creat Clear Calc 77.3 Estimated GFR 55 POC Glucose 191 H 171 H Random Glucose 129 H Calcium 9.7 04/21/23 04/21/23 07:00 11:07 Anion Gap Estim Creat Clear Calc Estimated GFR POC Glucose 120 H 175 H Random Glucose Calcium Microbiology Microbiology Results: Microbiology 04/19/23 10:55 Gram Stain - Final Leg Left Routine Culture - Preliminary Enterococcus/Streptococcus sp 04/15/23 17:20 Blood Culture - Final Blood - Venous No growth after 5 days. 04/15/23 16:57 Blood Culture - Final Blood - Venous No growth after 5 days. Assessment and Plan (1) Cellulitis of left lower extremity: Status: Acute (2) Obstructive sleep apnea: Status: Acute (3) COPD (chronic obstructive pulmonary disease): Status: Acute (4) Acute on chronic right heart failure: Status: Acute Plan 62-year-old male with asthma/COPD overlap, coronary artery disease, eyr-zzvmdus-qvhyronas type 2 diabetes, hyperlipidemia, hypertension, chronic normocytic anemia, obstructive sleep apnea not yet on CPAP but using supplemental O2 at bedtime, opioid dependence on methadone who is a current everyday smoker admitted for extensive cellulitis LLE #Acute extensive LLE cellulitis with open wound diagnosed to have prepatellar bursitis No further drainage noted to have open ulceration, Wound Care consult pending appreciate Ortho and surgical consult, blood cultures no growth, WBC normal, s/p IV vanco , now on IV cefepime d7 and doxy 100 b.i.d.day 3/5, will DC IV cefepime # Acute on chronic right side heart failure last ECHO showed EF 55-60% normal BNP, s/p IV Lasix greater than 4 L negative , will resume Aldactone and Lasix . # nwc-exzmdes-ataayijzr type 2 diabetes A1c 7.8, elevated blood sugars, started on Lantus at bedtime diabetic diet Humalog sliding scale, resume metformin # asthma/COPD overlap no acute exacerbation, continue home inhalers, albuterol p.r.n, # hypertension BP soft/stable, on multiple antihypertensive medications and diuretics follow BP closely, will reduce dose of Norvasc to 5 mg # ABDOULAYE with nocturnal hypoxemia supplemental O2 at bedtime, outpatient CPAP appointment # chronic normocytic anemia H/H baseline, above transfusion threshold. # opioid dependence continue methadone # morbid obesity recommend low-calorie diet, and exercise. DVT prophylaxis-heparin Full code Patient requires inpatient stay for management of acute extensive left lower extremity cellulitis and prepatellar bursitis,on IV antibiotics having failed outpt abx. Time Spent With Patient Time: Total time managing care of this patient today ____ minutes. Quality Stroke Does the patient have a stroke diagnosis?: No VTE Prior VTE?: No VTE Risk Level:: Medical - moderate - high VTE Device Contraindication: Treatment Not Indicated VTE Drug Contraindication: N/A - Med Ordered
[2023-04-21 16:24] LABS: Glucose, Whole Blood 170 mg/dL (60-115)
[2023-04-21] MEDS: 0.9 % Sodium Chloride Flush 3 ML SYRINGE IVFLUSH ×2 (16:42→20:50)
[2023-04-21 19:17] VITALS: BP 118/68; PULSE 54; RESP 18; TEMP 36.1; O2SAT 94
[2023-04-21 20:09] LABS: Glucose, Whole Blood 172 mg/dL (60-115)
[2023-04-21] MEDS: amLODIPine Besylate 5 MG TABLET PO (20:49)
[2023-04-21] MEDS: traZODone HCL 100 MG TABLET 200 MG PO (20:49)
[2023-04-21] MEDS: VerapamiL HCL SR 240 MG TABLET.ER PO (20:49)
[2023-04-21] MEDS: Atorvastatin Calcium 80 MG TABLET PO (20:49)
[2023-04-21] MEDS: Prazosin HCL 5 MG CAPSULE PO (20:49)
[2023-04-21] MEDS: Insulin Glargine,Hum.rec.anlog 100 UNIT/ML 10 ML VIAL 10 UNIT SUBCUT (20:50)
[2023-04-22] MEDS: Doxycycline Monohydrate 100 MG CAPSULE PO (00:31)
[2023-04-22 03:22] VITALS: BP 107/55; PULSE 52; RESP 18; TEMP 36.9; O2SAT 96
[2023-04-22] MEDS: Omeprazole 20 MG CAPSULE.DR PO (05:47)
[2023-04-22 06:59] VITALS: BP 123/58; PULSE 57; RESP 16; TEMP 36.6; O2SAT 93
[2023-04-22 07:26] LABS: Creatinine Clr Calc Pharmacy 76.2; Estimated Glomerular Filt Rate 54
[2023-04-22 07:27] LABS: Glucose, Whole Blood 106 mg/dL (60-115)
[2023-04-22] MEDS: Fluticasone/Vilanterol 100/25 BLST.W.DEV 1 PUFF INHALE (08:20)
[2023-04-22 08:22] VITALS: PULSE 88; RESP 16; O2SAT 95
[2023-04-22] MEDS: buPROPion HCl XL 300 MG TAB.ER.24H PO (08:37)
[2023-04-22] MEDS: Heparin Sodium,Porcine 5,000 UNIT/ML VIAL 5000 UNIT SUBCUT (08:37)
[2023-04-22] MEDS: Isosorbide Mononitrate 30 MG TAB.ER.24H 90 MG PO (08:37)
[2023-04-22] MEDS: hydrALAZINE HCl 50 MG TABLET PO (08:37)
[2023-04-22] MEDS: Sertraline HCL 25 MG TABLET PO (08:38)
[2023-04-22] MEDS: Empagliflozin 10 MG TABLET PO (08:38)
[2023-04-22] MEDS: Spironolactone 25 MG TABLET PO (08:38)
[2023-04-22] MEDS: carvediloL 25 MG TABLET PO (08:38)
[2023-04-22] MEDS: Clopidogrel Bisulfate 75 MG TABLET PO (08:38)
[2023-04-22] MEDS: Calcium + Vitamin D 250 MG TABLET 500 MG PO (08:38)
[2023-04-22] MEDS: Cholecalciferol (Vitamin D3) 25 MCG TABLET PO (08:38)
[2023-04-22] MEDS: cloNIDine HCL 0.1 MG TABLET PO (08:38)
[2023-04-22] MEDS: Losartan Potassium 50 MG TABLET 150 MG PO (08:38)
[2023-04-22] MEDS: Loratadine 10 MG TABLET PO (08:38)
[2023-04-22] MEDS: 0.9 % Sodium Chloride Flush 3 ML SYRINGE IVFLUSH (08:39)
[2023-04-22] MEDS: Nystatin Powder 15 GM BOTTLE 1 APPL TOPICAL (08:39)
[2023-04-22] MEDS: Fluticasone Propionate Nasal 16 GM SPRAY 2 SPRAY NOSTRIL-B (08:44)
[2023-04-22 11:08] LABS: Glucose, Whole Blood 145 mg/dL (60-115)
--- NOTE | 2023-04-22 11:57 | P.DS_ITS ---
DS: Providers Provider Date of Service: 04/22/23 Date of admission: 04/15/23 20:10 Primary care physician: Sasha You MD Consults: 04/19/23 09:32 Consult to General Surgery Routine Consulting Provider: David Angel Reason for consultation: left knee abscess Has provider been notified: No 04/19/23 12:22 Consult to Orthopedics Routine Consulting Provider: [facility] Reason for consultation: left knee wound Has provider been notified: Yes 04/20/23 14:48 Consult to Wound Care Routine Consulting Provider: Laura Sweeney Reason for consultation: prepatellar bursitis DS: Diagnosis Discharge Diagnosis (1) Cellulitis of left lower extremity: Status: Acute (2) Obstructive sleep apnea: Status: Acute (3) COPD (chronic obstructive pulmonary disease): Status: Acute (4) Acute on chronic right heart failure: Status: Acute DS: Summary Hospital Course Hospital Course: history of presenting illness: Date of Service: 04/15/23 Attending physician on admission: Delonte Stiles Chief Complaint: leg infection 62-year-old male with asthma/COPD overlap, coronary artery disease, lzq-yeywfnz-fniuiexst type 2 diabetes, hyperlipidemia, hypertension, chronic normocytic anemia, obstructive sleep apnea not yet on CPAP but using supplem ental O2 at bedtime, opioid dependence on methadone who is a current everyday smoker presented to the ED earlier today for evaluation of swelling and redness of the left lower extremity ongoing for about 1 week.? He states he developed ulcerations the anterior aspect of the lower legs though is unclear have the appeared.? He then developed significant redness and swelling of the left lower leg with significant discomfort.? On arrival, vital signs stable.? No leukocytosis.? Renal function and electrolyte levels normal.? CRP 17.37, ESR 29.? Venous duplex negative for any evidence of DVT.? In the ED, received IV vancomycin and Ancef as well as morphine in Silvadene cream applied to the wound. hospital course: 62-year-old male with asthma/COPD overlap, coronary artery disease, dnk-ethcvop-lmstjgysu type 2 diabetes, hyperlipidemia, hypertension, chronic normocytic anemia, obstructive sleep apnea not yet on CPAP but using supplemental O2 at bedtime, opioid dependence on methadone who is a current everyday smoker admitted for extensive cellulitis LLE #Acute extensive LLE cellulitis with open wound at prepatellar bursa ,non pressure not related to diabetes, patient admitted to medical floor treated with broad-spectrum antibiotics IV vancomycin and IV cefepime cellulitis resolved in regard to open wound patient evaluated by orthopedic surgeon as well as over wound care physician Dr. Marinelli no surgical intervention or drainage was required patient required daily dressing change in now being discharged. # Acute on chronic right side heart failure, last ECHO showed EF 55-60%, normal BNP, initially treated with IV Lasix noted to have 4 L negative, recommended to continue Lasix and Aldactone, question lower extremity edema contributed by high dose of Norvasc 10mg and due to soft blood pressures dose of Norvasc reduced to 5 mg daily. # cws-ziktyrd-xcilkecac type 2 diabetes hemoglobin A1c 7.8 recommend diabetic diet metformin, and weight reduction. # In regard to asthma/COPD overlap and obstructive sleep apnea with nocturnal hypoxia recommend to continue home inhalers and O2 at bedtime, outpatient CPAP appointment. # hypertension BP soft/stable, on multiple antihypertensive medications and diuretics , dose of Norvasc reduced to 5 mg. # chronic normocytic anemia H/H baseline, above transfusion threshold. # opioid dependence continue methadone # morbid obesity recommend low-calorie diet, and exercise. Time Spent with Patient Time attestation: Total time managing care of this patient today ____ minutes. Discharge coordination time: Greater than 30 minutes Quality: Safe Use of Opioids Does Pt have an Active Cancer Diagnosis on the Problem List?: No Quality: Stroke Does the patient have a stroke diagnosis?: No Physical Exam Vital Signs: Vital Signs: Last Vital Signs Temp 97.9 F 04/22/23 06:59 Pulse 88 04/22/23 08:22 Resp 16 04/22/23 08:22 BP 123/58 L 04/22/23 06:59 Pulse Ox 93 04/22/23 06:59 O2 Del Method Nasal Cannula 04/22/23 06:59 O2 Flow Rate 2 04/22/23 06:59 BMI result Body Mass Index 49.3 Const: Other: Constitutional : A wake, alert in anuja cute distress Neck : Normal inspecti on, Supple Cardiov ascular : RRR, no? jvd Respiratory :? good bilateral air entry,? no crackl es, wheezes or rho nchi Gastrointesti nal:? soft, Normal bowel sounds, Non tender Left lower extremity, rednes s swelling and ten derness resolved, open wound at left prepatellar bursa extending into th e superficial subc utaneous tissue, w ound bed showing m ixed granulation a nd superficial exu date,no periwound erythema. Neurolog ical : Alert &?semaj ented x3, No focal deficit. Psych ap propriate affect DS: Data Data Completed and Pending Completed studies during hospitalization [Text1]: Procedures Detoxification Services for Substance Abuse Treatment (02/12/21) Insertion of Infusion Device into Right Cephalic Vein, Percutaneous Approach (02/12/21) Labs on day of discharge: Laboratory Results - last 24 hr 04/21/23 04/21/23 04/22/23 16:14 20:06 05:55 Creatinine 1.34 Estim Creat Clear Calc 76.2 Estimated GFR 54 POC Glucose 170 H 172 H 04/22/23 04/22/23 07:24 11:02 Creatinine Estim Creat Clear Calc Estimated GFR POC Glucose 106 145 H Discharge Plan Discharge Anticipated Discharge Date/Time: 04/22/23 10:46 Patient Disposition: Home Health Service Discharge Diagnosis: acute left lower extremity cellulitis open wound at left prepatellar bursa acute on chronic right-sided heart failure Referrals: [facility] [Outside] - 3-5 Days ([facility]) Sasha Tipton MD [Primary Care Provider] - 1 Week Discharge Medications: New doxycycline monohydrate 100 mg Capsule 100 mg PO Q12H Qty: 4 0RF Continued furosemide 40 mg tablet 40 mg PO BID metformin 500 mg tablet 500 mg PO BIDWM bupropion HCl 150 mg tablet sustained-release 12 hr 150 mg PO BID carvedilol 25 mg tablet 25 mg PO BID isosorbide mononitrate 30 mg tablet extended release 24 hr 90 mg PO DAILY clopidogrel 75 mg tablet 75 mg PO DAILY hydralazine 100 mg tablet 100 mg PO QID omeprazole 20 mg capsule,delayed release(DR/EC) 20 mg PO DAILY@0630 losartan 100 mg tablet 150 mg PO DAILY fluticasone propionate 50 mcg/actuation spray,suspension 2 spray intranasal DAILY rosuvastatin 40 mg tablet 40 mg PO BEDTIME cholecalciferol (vitamin D3) 25 mcg (1,000 unit) tablet 1,000 unit PO DAILY calcium carbonate-vitamin D3 [Oyster Shell Calcium-Vit D3] 500 mg(1,250mg) - 400 unit tablet 1 tab PO BID fluticasone propion-salmeterol [Advair Diskus] 250-50 mcg/dose blister with device 1 puff INHALATION BID clonidine HCl 0.1 mg tablet 1 tab PO DAILY albuterol sulfate 2.5 mg /3 mL (0.083 %) solution for nebulization 1 amp inhalation Q4-6H PRN (Reason: Shortness Of Breath) verapamil 240 mg tablet extended release 240 mg PO BEDTIME Spiriva with HandiHaler 18 mcg capsule, w/inhalation device 1 cap inhalation DAILY Jardiance 10 mg tablet 10 mg PO DAILY acetaminophen 650 mg tablet extended release 2 tab PO Q8H PRN (Reason: Pain (Scale Score 1-3)) [id number] [Fioricet] 50-300-40 mg capsule 1 cap PO Q8H PRN (Reason: headache) Qty: 10 0RF prazosin 5 mg capsule 5 mg PO BEDTIME sertraline 25 mg tablet 25 mg PO QAM furosemide 20 mg Tablet 20 mg PO BID loratadine 10 mg tablet 10 mg PO QAM trazodone 100 mg tablet 200 mg PO BEDTIME albuterol sulfate [ProAir HFA] 90 mcg/actuation HFA aerosol inhaler 2 puff inhalation Q4H PRN (Reason: Wheezing) 30 Days Qty: 8.5 11RF methadone 10 mg/5 mL solution 35 mg PO DAILY (DME) Oxygen Home Use Kit See Rx Instructions .ROUTE Rx Instructions: As directed ([facility] [place] [place]) [place] [facility] [place] Instructions .[place]OUTE Rx Instructions: As directed Changed spironolactone 25 mg tablet 25 mg PO DAILY Qty: 30 0RF Discontinued amlodipine 10 mg tablet 10 mg PO BEDTIME cefuroxime axetil 250 mg tablet 250 mg PO BID Discharge Orders: Discharge Order (Routine); Ordered 04/22/23 Ordered By: Angela Wray Diet: Diabetic diet Activity on Discharge: As tolerated Stand Alone Forms: Patient Portal Discharge page Care Plan Goals: recommend daily calcium alginate with silver dressing to left knee wound care keep legs elevated when sitting resume compression therapy decrease dose of Norvasc to 5 mg daily (half tablet 10 mg daily) take spironolactone 25 mg 1 tablet daily follow diabetic diet weight reduction ambulate as tolerated use oxygen as before Health Concerns: recommend no smoking Plan of Treatment: call wound care clinic for outpatient follow-up in next 3-5 days Assessment: as above
--- NOTE | 2023-04-22 12:01 | MHC.CM.PN ---
DP: PT HAS BEEN MEDICALLY CLEARED FOR DC HOME WITH [facility]. [facility] NOTIFIED. [facility] NOTIF[facility]. [facility]SP[facility] HOME.
--- NOTE | 2023-05-01 07:18 | P.CDIM_ITS ---
PROVIDER RESPONSE TEXT: To clarify, the appropriate diagnosis supported by the clinical indicators: Chronic respiratory failure with hypoxia QUERY TEXT: >>> Provider Instructions - Do not remove this line >>> PHYSICIAN'S DOCUMENTATION REQUEST Date of Query: 04/22/2023 08:15 AM EDT Patient Name: Christine Meier Admit Date: 04/16/2023 Dear Angela Wray, A review of the medical record indicates additional documentation may be needed. Please review below and update the documentation accordingly. Clinical Indicators: Per Hospitalist Progress Note 04/16/23: Asthma/COPD overlap Per General Surgery Consult note 04/19/23: using supplemental O2 at bedtime 2L NC Please clarify which of the following accurately represents the patient's respiratory status: <<< Provider Instructions - Do not remove this line <<< Chronic respiratory failure with hypoxia Other (explain)Clinically unable to determine (explain) >>> Contact Info Do not remove this line>>> Thank you, Kyleigh Valentine RN Use of terms such as suspected, likely, concern for, or probable (associated with a specific diagnosi s that is being evaluated, monitored, or treated as if it exists) are acceptable and can be coded in the inpatient se tting, when documented at the time of discharge. Please use your independent medical judgment in providing your response. THIS QUERY IS PART OF THE PERMANENT MEDICAL RECORD <<< Contact Info Do not remove this line <<< >>> Disclaimer - Do no remove this line>>> Extension: [phone] <<< Disclaimer - Do not remove this line<<<
== END 2023-04-22 12:44 | disposition home health service (06) | DRG 383 ==
LOC: HO.ED 17:32 → HO.EDOVER 20:36 → HO.IMC 04-16 15:59 → HO.S3 04-19 18:00
PROVIDERS: Physician Assistant; Student in an Organized Health Care Education/Training Program; Admitting Provider Physician Assistant; Emergency Provider Emergency Medicine; PCP Internal Medicine; Visit Provider Hospitalist
DX: L03.116 Cellulitis of left lower limb (principal); J96.11 Chronic respiratory failure with hypoxia; E11.51 Type 2 diabetes mellitus with diabetic peripheral angiopathy without gangrene; I50.813 Acute on chronic right heart failure; I11.0 Hypertensive heart disease with heart failure; I87.332 Chronic venous hypertension (idiopathic) with ulcer and inflammation of left lower extremity; L97.822 Non-pressure chronic ulcer of other part of left lower leg with fat layer exposed; D64.9 Anemia, unspecified; E66.01 Morbid (severe) obesity due to excess calories; Z99.81 Dependence on supplemental oxygen; Z68.42 Body mass index [BMI] 45.0-49.9, adult; L02.416 Cutaneous abscess of left lower limb; G47.33 Obstructive sleep apnea (adult) (pediatric); E78.5 Hyperlipidemia, unspecified; F17.210 Nicotine dependence, cigarettes, uncomplicated; I25.10 Atherosclerotic heart disease of native coronary artery without angina pectoris; J44.9 Chronic obstructive pulmonary disease, unspecified; M70.42 Prepatellar bursitis, left knee; F11.20 Opioid dependence, uncomplicated; Z71.6 Tobacco abuse counseling; Z88.0 Allergy status to penicillin; Z88.2 Allergy status to sulfonamides; Z79.02 Long term (current) use of antithrombotics/antiplatelets; Z79.51 Long term (current) use of inhaled steroids; Z79.84 Long term (current) use of oral hypoglycemic drugs; Z79.899 Other long term (current) drug therapy
CPT/HCPCS: 36415; 80048; 80053; 80202; 81001; 82550; 82565; 82947; 83036; 83605; 83735; 83880; 84443; 85025; 85027; 85652; 86140; 87040; 87070; 87077; 87086; 87186; 87205; 93971; 94640; 94660; 99285; J0690; J0692; J1643; J1940; J2270; J3370; J3371

== ENCOUNTER → 2023-04-15 20:10 | Outpatient (BNV) | payer MEDICAID, SELFPAY | PROVIDERS: Admitting Provider Physician Assistant; Emergency Provider Emergency Medicine; PCP Internal Medicine; Visit Provider Orthopaedic Surgery | DX: L03.116 Cellulitis of left lower limb (principal); L02.416 Cutaneous abscess of left lower limb | CPT/HCPCS: 99231; 99232 ==

== ENCOUNTER → 2023-04-15 20:10 | Outpatient (BNV) | payer MEDICAID, SELFPAY | PROVIDERS: Admitting Provider Physician Assistant; Emergency Provider Emergency Medicine; PCP Internal Medicine; Visit Provider Physician Assistant | DX: J44.1 Chronic obstructive pulmonary disease with (acute) exacerbation (principal); I50.813 Acute on chronic right heart failure; L03.116 Cellulitis of left lower limb; G47.33 Obstructive sleep apnea (adult) (pediatric) | CPT/HCPCS: 99223; 99233; 99239 ==

== ENCOUNTER → 2023-04-15 20:10 | Outpatient (BNV) | payer MEDICAID, SELFPAY | PROVIDERS: Admitting Provider Physician Assistant; Emergency Provider Emergency Medicine; PCP Internal Medicine; Visit Provider Surgery | DX: L03.116 Cellulitis of left lower limb (principal); L02.416 Cutaneous abscess of left lower limb; G47.33 Obstructive sleep apnea (adult) (pediatric); J44.1 Chronic obstructive pulmonary disease with (acute) exacerbation; I87.312 Chronic venous hypertension (idiopathic) with ulcer of left lower extremity; I73.9 Peripheral vascular disease, unspecified; I50.30 Unspecified diastolic (congestive) heart failure; N17.9 Acute kidney failure, unspecified; I50.33 Acute on chronic diastolic (congestive) heart failure; F11.10 Opioid abuse, uncomplicated; L97.922 Non-pressure chronic ulcer of unspecified part of left lower leg with fat layer exposed; L97.929 Non-pressure chronic ulcer of unspecified part of left lower leg with unspecified severity | CPT/HCPCS: 99222 ==

== ENCOUNTER 2023-04-22 19:19 | Emergency (ER) | payer MEDICAID, SELFPAY ==
--- NOTE | 2023-04-22 19:45 | PHA.MEDREC ---
Pharmacy Consult ? Medication Reconciliation Pharmacy has completed the medication reconciliation. Patient just discharged 04/22 from here. Spironolcatone was change to 25 mg daily then new script included amlodipine 5 mg and doxycycline on discharged. Rosmery Eubanks, PharmD
[2023-04-22 19:51] VITALS: BP 142/70; BP 150/70; PULSE 63; PULSE 64; RESP 20; TEMP 37; O2SAT 94; O2SAT 95; BMI 50.8
--- NOTE | 2023-04-22 20:20 | MHC.EDTECH ---
Patient was brought in by ambulance, patient was changed into hospital attire and vitals were taken.
[2023-04-22 21:37] VITALS: BP 153/70; PULSE 69; RESP 18; TEMP 36.9; O2SAT 94
--- NOTE | 2023-04-22 21:38 | MHC.EDTECH ---
Hourly rounds completed and vitals were taken.
--- NOTE | 2023-04-22 22:06 | ED.ABDPAIN ---
HPI - Abdominal Pain General Chief Complaint: Abdominal Pain Stated Complaint: ABD PAIN Time Seen by Provider: 04/22/23 22:05 Source: patient Mode of arrival: ambulatory Limitations: no limitations History of Present Illness HPI narrative: Patient was discharged from [facility] [place] today comes here as been constipated for last 8 days feels bloated no nausea no vomiting patient has not taken any stools softner Related Data Home Medications Medication Instructions Recorded Confirmed bupropion HCl 150 mg tablet,12 hr 150 mg PO BID 02/12/21 04/22/23 sustained-release calcium carbonate 500 mg-vitamin 1 tab PO BID 02/12/21 04/22/23 D3 10 mcg (400 unit) tablet (Oyster Shell Calcium-Vitamin D3) carvedilol 25 mg tablet 25 mg PO BID 02/12/21 04/22/23 cholecalciferol (vitamin D3) 25 1,000 unit PO DAILY 02/12/21 04/22/23 mcg (1,000 unit) tablet clopidogrel 75 mg tablet 75 mg PO DAILY 02/12/21 04/22/23 fluticasone propionate 50 2 spray intranasal DAILY 02/12/21 04/22/23 mcg/actuation nasal spray,suspension furosemide 40 mg tablet 40 mg PO BID 02/12/21 04/22/23 hydralazine 100 mg tablet 100 mg PO QID 02/12/21 04/22/23 isosorbide mononitrate 30 mg 90 mg PO DAILY 02/12/21 04/22/23 tablet,extended release 24 hr losartan 100 mg tablet 150 mg PO DAILY 02/12/21 04/22/23 metformin 500 mg tablet 500 mg PO BIDWM 02/12/21 04/22/23 omeprazole 20 mg capsule,delayed 20 mg PO DAILY@0630 02/12/21 04/22/23 release rosuvastatin 40 mg tablet 40 mg PO BEDTIME 02/12/21 04/22/23 trazodone 100 mg tablet 200 mg PO BEDTIME 10/16/21 04/22/23 albuterol sulfate 2.5 mg/3 mL 1 amp inhalation Q4-6H PRN 06/08/22 04/22/23 (0.083 %) solution for nebulization Shortness Of Breath clonidine HCl 0.1 mg tablet 1 tab PO DAILY 06/08/22 04/22/23 empagliflozin 10 mg tablet 10 mg PO DAILY 06/08/22 04/22/23 (Jardiance) fluticasone 250 mcg-salmeterol 50 1 puff inhalation BID 06/08/22 04/22/23 mcg/dose blistr powdr for inhalation (Advair Diskus) tiotropium bromide 18 mcg capsule 1 cap inhalation DAILY 06/08/22 04/22/23 with inhalation device (Spiriva with HandiHaler) verapamil 240 mg tablet,extended 240 mg PO BEDTIME 06/08/22 04/22/23 release acetaminophen 650 mg 2 tab PO Q8H PRN Pain (Scale Score 06/10/22 04/22/23 tablet,extended release 1-3) nebulizers 10/25/22 Oxygen Home Use 10/31/22 furosemide 20 mg tablet 20 mg PO BID 04/15/23 04/22/23 loratadine 10 mg tablet 10 mg PO QAM 04/15/23 04/22/23 prazosin 5 mg capsule 5 mg PO BEDTIME 04/15/23 04/22/23 sertraline 25 mg tablet 25 mg PO QAM 04/15/23 04/22/23 amlodipine 5 mg tablet 5 mg PO BEDTIME 04/22/23 04/22/23 Previous Rx's Medication Instructions Recorded albuterol sulfate 90 mcg/actuation 2 puff inhalation Q4H PRN Wheezing 10/16/21 aerosol inhaler (ProAir HFA) 30 days #8.5 grams [id number]-bpkssbcdwvzpb-hkybijwj 1 cap PO Q8H PRN headache #10 caps 09/01/22 50 mg-300 mg-40 mg capsule (Fioricet) doxycycline monohydrate 100 mg 100 mg PO Q12H #4 caps 04/22/23 capsule spironolactone 25 mg tablet 25 mg PO DAILY #30 tabs 04/22/23 bisacodyl 5 mg tablet,delayed 5 mg PO BEDTIME PRN constipation 04/23/23 release (Dulcolax (bisacodyl)) #30 tabs polyethylene glycol 3350 17 17 g PO DAILY PRN constipation 04/23/23 gram/dose oral powder (Miralax) #510 grams Allergies Allergy/AdvReac Type Severity Reaction Status Date / Time crab [CRAB] Allergy Unknown ANAPHYLAXIS Verified 01/31/23 13:46 lisinopril [LISINOPRIL] Allergy Unknown cough Verified 01/31/23 13:46 Penicillins [PCN] Allergy Unknown RASH Verified 01/31/23 13:46 Sulfa (Sulfonamide Allergy Unknown RASH Verified 01/31/23 13:46 Antibiotics) [SULFA (SULFONAMIDE ANTIBIOTICS)] Review of Systems Review of Systems Yes all other systems are reviewed and are negative [facility] Past Medical History Medical History Asthma Cellulitis of left lower extremity Chronic allergic rhinitis Chronic restrictive lung disease Cocaine abuse Congestive heart failure COPD (chronic obstructive pulmonary disease) Coronary artery disease Diabetes Hyperlipidemia Hypertension Normocytic anemia Obesity Obstructive sleep apnea Opioid abuse Osteopenia (~2015) Pulmonary nodule Smoker Streptococcal bacteremia Surgical History History of colonoscopy History of hernia repair History of orchiectomy, unilateral Family History Family History Father No problems noted. Mother No problems noted. Social History Social History Household Members: None Housing: Condominium Do you presently have visiting nurse or other home services: Yes Alcohol intake: never Patient Tobacco Use Status: Current everyday Tobacco user Tobacco use type: Cigarette Cigarette Packs Per Day: 1 Cigarettes Per Day: 20.0 Smoked in Last 30 Days: No Use of substances other than those prescribed or required for medical reasons: No Substance Use Type: Opiates Advance Directives: No Advance Directives Information Provided: No service: No Current occupational status: disabled Current occupation: Rt handed Physical Exam ED Vital Signs: Vital Signs - 24 hr 04/22/23 19:51 04/22/23 21:37 04/22/23 23:46 Temperature 98.6 F 98.4 F 98.6 F Pulse Rate 64 69 70 Respiratory Rate 20 18 18 Blood Pressure 150/70 H 153/70 H 178/84 H Pulse Oximetry 94 94 95 Oxygen Delivery Method Room Air Room Air Room Air BMI result Body Mass Index 50.8 Appearance: Alert. Oriented X3. No acute distress. Neck: Normal inspection. Neck supple. CVS: Normal heart rate and rhythm. Pulses normal. Respiratory: No respiratory distress. Equal air entry bilateral, no wheezing/rales/rhonchi Abdomen: Soft and nontender. Bowel sounds are present, no mass palpable, no CVA tenderness Skin: Skin warm and dry. Normal skin color. Normal skin turgor. Extremities: + lower extremity edema. No calf tenderness Neuro: Oriented X 3. No motor deficit. Medical Decision Making Medical Decision Making [facility] Narrative: Patient's constipation was given milk of magnesium here and Dulcolax patient had a bowel movement feeling much better discharge patient home on MiraLax and Dulcolax Medications Administered Discontinued Medications Generic Name Dose Route Start Last Admin Trade Name Freq PRN Reason Stop Dose Admin Bisacodyl 10 mg 04/22/23 22:06 04/22/23 22:35 Bisacodyl 5 Mg Tablet.Dr PO 04/22/23 22:07 10 mg ONCE ONE Administration Magnesium Hydroxide 30 ml 04/22/23 22:06 04/22/23 22:35 Milk Of Magnesia 30 Ml Oral.Susp PO 04/22/23 22:07 30 ml ONCE ONE Administration Discharge Plan Discharge Clinical Impression: Constipation Patient Disposition: Home, Self-Care Instructions: Constipation (ED) Additional Instructions: Drink plenty of fluids Take medicine for constipation as prescribed Follow with PCP Prescriptions: New polyethylene glycol 3350 [Miralax] 17 gram/dose powder 17 g PO DAILY PRN (Reason: constipation) Qty: 510 0RF bisacodyl [Dulcolax (bisacodyl)] 5 mg tablet,delayed release (DR/EC) 5 mg PO BEDTIME PRN (Reason: constipation) Qty: 30 0RF No Action furosemide 40 mg tablet 40 mg PO BID metformin 500 mg tablet 500 mg PO BIDWM bupropion HCl 150 mg tablet sustained-release 12 hr 150 mg PO BID carvedilol 25 mg tablet 25 mg PO BID isosorbide mononitrate 30 mg tablet extended release 24 hr 90 mg PO DAILY clopidogrel 75 mg tablet 75 mg PO DAILY hydralazine 100 mg tablet 100 mg PO QID omeprazole 20 mg capsule,delayed release(DR/EC) 20 mg PO DAILY@0630 losartan 100 mg tablet 150 mg PO DAILY fluticasone propionate 50 mcg/actuation spray,suspension 2 spray intranasal DAILY rosuvastatin 40 mg tablet 40 mg PO BEDTIME cholecalciferol (vitamin D3) 25 mcg (1,000 unit) tablet 1,000 unit PO DAILY calcium carbonate-vitamin D3 [Oyster Shell Calcium-Vit D3] 500 mg(1,250mg) -400 unit tablet 1 tab PO BID fluticasone propion-salmeterol [Advair Diskus] 250-50 mcg/dose blister with device 1 puff INHALATION BID clonidine HCl 0.1 mg tablet 1 tab PO DAILY albuterol sulfate 2.5 mg /3 mL (0.083 %) solution for nebulization 1 amp inhalation Q4-6H PRN (Reason: Shortness Of Breath) verapamil 240 mg tablet extended release 240 mg PO BEDTIME Spiriva with HandiHaler 18 mcg capsule, w/inhalation device 1 cap inhalation DAILY Jardiance 10 mg tablet 10 mg PO DAILY acetaminophen 650 mg tablet extended release 2 tab PO Q8H PRN (Reason: Pain (Scale Score 1-3)) [id number]-[id number] [Fioricet] 50-300-40 mg capsule 1 cap PO Q8H PRN (Reason: headache) Qty: 10 0RF prazosin 5 mg capsule 5 mg PO BEDTIME sertraline 25 mg tablet 25 mg PO QAM furosemide 20 mg Tablet 20 mg PO BID loratadine 10 mg tablet 10 mg PO QAM spironolactone 25 mg tablet 25 mg PO DAILY Qty: 30 0RF doxycycline monohydrate 100 mg Capsule 100 mg PO Q12H Qty: 4 0RF amlodipine 5 mg Tablet 5 mg PO BEDTIME trazodone 100 mg tablet 200 mg PO BEDTIME albuterol sulfate [ProAir HFA] 90 mcg/actuation HFA aerosol inhaler 2 puff inhalation Q4H PRN (Reason: Wheezing) 30 Days Qty: 8.5 11RF (DME) Oxygen Home Use Kit See Rx Instructions .ROUTE Rx Instructions: As directed (DME) [place]bulizers [facility] [place] Instructions .ROUTE Rx Instructions: As directed Interventions: ED Discharge Assessment Last Done: 04/23/23 00:22 Discharge Date/Time: 04/23/23 00:24
[2023-04-22] MEDS: Milk of Magnesia 30 ML ORAL.SUSP PO (22:35)
[2023-04-22] MEDS: bisacodyL 5 MG TABLET.DR 10 MG PO (22:35)
[2023-04-22 23:46] VITALS: BP 178/84; PULSE 70; RESP 18; TEMP 37; O2SAT 95
--- NOTE | 2023-04-22 23:47 | MHC.EDTECH ---
Hourly rounds completed,vitals were taken and is elevated at 178/84 RN Catia was made aware. Patient is awaiting discharge and brother to come to get him at this time.
== END 2023-04-23 00:24 | disposition home or self-care (01) ==
PROVIDERS: Emergency Provider Internal Medicine
DX: K59.00 Constipation, unspecified (principal); E11.9 Type 2 diabetes mellitus without complications; I11.0 Hypertensive heart disease with heart failure; I50.9 Heart failure, unspecified; E78.5 Hyperlipidemia, unspecified; F17.210 Nicotine dependence, cigarettes, uncomplicated; E66.01 Morbid (severe) obesity due to excess calories; Z68.43 Body mass index [BMI] 50.0-59.9, adult; Z79.84 Long term (current) use of oral hypoglycemic drugs; Z79.899 Other long term (current) drug therapy
CPT/HCPCS: 99283; 99284

== ENCOUNTER 2023-05-23 08:29 | Outpatient (REF) | payer MEDICAID, SELFPAY ==
--- NOTE | ~2023-05-23 | US_ITS ---
EXAMINATION: US LOWER EXTREMITY VENOUS (REFLUX EXAM), BILATERAL CLINICAL INDICATION: Chronic venous insufficiency with lower extremity edema COMPARISON: None. TECHNIQUE: Color flow triplex imaging and compression Doppler was performed to evaluate both the deep and the superficial systems bilaterally. To evaluate the superficial system, the examination was performed in the upright position. Color-flow Doppler ultrasound and compression ultrasound were utilized. In addition, maneuvers were utilized to demonstrate reflux. FINDINGS: 1. DEEP VENOUS ULTRASOUND OF THE RIGHT LOWER EXTREMITY: Common Femoral Vein: Compressible, normal respiratory variation and augmented flow. Femoral Vein: Compressible, normal color flow and augmentation. Popliteal Vein: Compressible, normal augmentation. Deep Reflux: There is no evidence of reflux in the deep system in either the common femoral vein or the popliteal vein. There is no evidence of a Montilla's cyst. Diffuse subcutaneous edema within the calf. 2. SUPERFICIAL ULTRASOUND WITH DOPPLER OF RIGHT LOWER EXTREMITY: GREAT SAPHENOUS VEIN: Saphenofemoral Junction: 1.1 cm; Reflux: 0 ms Proximal Thigh: 0.9 cm; Reflux: 0 ms Mid Thigh: 0.5 cm; Reflux: 0 ms Above Knee: 0.5 cm; Reflux: 0 ms At Knee: 0.4 cm; Reflux: 0 ms Below Knee: 0.4 cm; Reflux: 0 ms Mid Calf: 0.3 cm; Reflux: 0 ms Ankle: 0.3 cm; Reflux: 0 ms DUPLICATED MEDIAL GREAT SAPHENOUS VEIN: Diameter: None imaged Reflux: NA DUPLICATED LATERAL GREAT SAPHENOUS VEIN: Diameter: None imaged Reflux: NA SMALL SAPHENOUS VEIN: Proximal: 0.2 cm; Reflux: 0 ms Distal: 0.2 cm; Reflux: 0 ms VEIN OF GIACOMINI: Size: NA Reflux: NA PERFORATORS: Location: Proximal thigh Size: 0.3 cm Reflux: None VARICOSITIES: Location: Multiple varicosities throughout the thigh and calf Size: 0.3 to 0.4 cm Reflux: None significant except for a single varicosity at the level the knee measuring 900 ms 3. DEEP VENOUS ULTRASOUND OF THE LEFT LOWER EXTREMITY: Common Femoral Vein: Compressible, normal respiratory variation and augmented flow. Femoral Vein: Compressible, normal color flow and augmentation. Popliteal Vein: Compressible, normal augmentation. Deep Reflux: There is no evidence of reflux in the deep system in either the common femoral vein or the popliteal vein. There is no evidence of a Montilla's cyst. Diffuse subcutaneous edema seen. 4. SUPERFICIAL ULTRASOUND WITH DOPPLER OF LEFT LOWER EXTREMITY: GREAT SAPHENOUS VEIN: Saphenofemoral Junction: 1.0 cm; Reflux: 0 ms Proximal Thigh: 0.6 cm; Reflux: 0 ms Mid Thigh: 0.5 cm; Reflux: 0 ms Above Knee: 0.5 cm; Reflux: 0 ms At Knee: 0.5 cm; Reflux: 0 ms Below Knee: 0.4 cm; Reflux: 0 ms Mid Calf: 0.3 cm; Reflux: 0 ms Ankle: 0.3 cm; Reflux: 0 ms DUPLICATED MEDIAL GREAT SAPHENOUS VEIN: Diameter: None imaged Reflux: NA DUPLICATED LATERAL GREAT SAPHENOUS VEIN: Diameter: 0.7 cm Reflux: None SMALL SAPHENOUS VEIN: Proximal: 0.3 cm; Reflux: 0 ms Distal: 0.3 cm; Reflux: 0 ms VEIN OF GIACOMINI: Size: NA Reflux: NA PERFORATORS: Location: None significant Size: NA Reflux: NA VARICOSITIES: Location: Multiple varicosities throughout the thigh and calf Size: Ranging from 0.3 to 0.4 cm Reflux: None US/US venous duplex LE BI IMPRESSION: Right: No significant venous insufficiency/reflux in the great saphenous vein or small saphenous vein. Multiple varicose veins as described above. Subcutaneous edema in the calf Left: No significant venous insufficiency/reflux in the great saphenous vein or small saphenous vein. Multiple varicose veins as described above. Subcutaneous edema in the calf
== END 2023-05-23 08:30 | disposition home or self-care (01) ==
LOC: HO.US 08:29
PROVIDERS: Visit Provider Physician Assistant
DX: I87.2 Venous insufficiency (chronic) (peripheral) (principal)
CPT/HCPCS: 93970

== ENCOUNTER 2023-07-07 08:27 | Outpatient (AMB) | payer MEDICAID, SELFPAY ==
[2023-07-07 08:29] VITALS: PULSE 80; O2SAT 93; BMI 50.8
--- NOTE | 2023-07-07 08:29 | A.OFFVIS_ITS ---
Intake Vital Signs 07/07/23 08:29 Height 5 ft 6 in Weight 314 lb 13.121 oz BMI 50.8 Pulse 80 Pulse Source Pulse Oximeter Pulse Oximetry (%) 93 Oxygen Delivery Method Room Air Intake Visit Reasons: Asthma Landing Man Required: No Allergies crab [CRAB] Allergy (Unknown, Verified 07/07/23 08:33) ANAPHYLAXIS lisinopril [LISINOPRIL] Allergy (Unknown, Verified 07/07/23 08:33) cough Penicillins [PCN] Allergy (Unknown, Verified 07/07/23 08:33) RASH Sulfa (Sulfonamide Antibiotics) [SULFA (SULFONAMIDE ANTIBIOTICS)] Allergy (Unknown, Verified 07/07/23 08:33) RASH HPI HPI Comments History of Present Illness Details The patient is a 62-year-old gentleman with a known history of tobacco dependency, history substance abuse, obstructive sleep apnea COPD who presents with worsening respiratory symptoms. The patient has a hard time walking. Currently he is wearing a boot for an orthopedic injury after fall. He is very winded very quickly. He is wondering if he can get oxygen to help him with his breathing. In addition to that he does take respiratory inhalers previous not know the names and currently he has run out. He recently got a new EMERGENCY WORKER who has been trying to help him with all his medical needs. The patient does have a lot of issues. Unfortunately to he continues to smoke cigarettes. He is up to 2 packs a day. Explained to him that we can try to help him improve his respiratory symptoms but will not going to be able to get anywhere unless he also does his part and quit smoking. The patient recently in September was evaluated for worsening respiratory symptoms in the ER. The patient did have a CTA which is very suboptimal because of respiratory artifact since he was having hard time breathing. No obvious blood clots or any other abnormalities noted. He is also part of the lung cancer screening program at [facility]. We did personally review that CT scan which is reassuring without any significant nodular densities to wear about. The patient will continue getting yearly CT scans through that program. During the office visit we did do a brief walking oximetry. His oxygenation actually got better the longer he walks. Although because is blue in his lower extremity weakness he was not able to walk too far. Although his pulse ox may stay around 96% with ambulation on room air. Therefore, the patient does not qualify for oxygen. I also explained to him that if he were to qualify that it will be relatively contraindicated with smoking because of the risk of fire any injury. The patient also has a CPAP. He is not clear how much she is using it. Does not seem like he is getting supplies at this time. He is not sure the name of the DME company. Therefore, I did request that he bring his machine to the next visit so we can adjusted downloaded and figure out from the [employer] if he needs a new sleep study or if he just needs a prescription sent. 11/29/2021 the patient is here for a pulmonary follow-up visit. Overall the patient continues to be about the same. He has been trying to cut down on the smoking. Still complaining of shortness of breath with activity moderate severity. He did undergo pulmonary function studies today which we personally reviewed. The patient has evidence of small airway disease likely from respiratory bronchiolitis related to the smoking. In addition, has mild restrictive lung disease we may be which may be related to his underlying elevated BMI. He did have a repeat CT scan of the chest demonstrating interval resolution of the pneumonitis. Still has some areas of scarring primarily in the left hemithorax. This is minimal. Patient does have mild diffusion impa irment on PFTs but it does correct to normal when correcting for the alveolar volume suggesting that is related to the elevated BMI. At this point the patient needs to be started on maintenance therapy to a provide him with better symptom relief. The patient needs to continue with smoking cessation. Also to note the patient has been having significant daytime drowsiness. His [place] score continues to be elevated it would over 24. We did request the DME to the liver him a new CPAP. However, he has not her as of yet. I explained to him that this is a titus with the pandemic is been difficult for getting CPAP but will requesting update from the [employer] at this time. 02/28/2022 the patient is here for a pulm onary follow-up visit. He continues to have significant daytime drowsiness. His [place] score continues to be elevated 08/24. He did have a sleep study personally reviewed. He did have an AHI of 20 consistent moderate to severe ABDOULAYE. He also has significant hypoxia. The patient needs to start CPAP therapy as soon as possible specially with cardiovascular risk factors. Again, he had a CPAP in the past more than 5 years ago which is no longer functional. He did bring it to the office and was in a bag and was infested with cockroaches and mold and mildew. At which point which is to await the machine because he was hazardous. therefore, the patient needs to be set up with a new APAP. We will request that from a local [employer] company. In the meantime he continues to have shortness of breath and wheezing. Unfortunately had not been using the Trelegy inhaler. I did send to the pharmacy and re-educated about using the maintenance therapy. He does have a rescue inhaler he can also use. He is cutting down on the smoking he is on to about 9 cigarettes a day. That is significantly better than the 2 packs a was smoking before. He has significant lower extremity edema. He does take diuretics. It is likely the Norvasc medication. He will talk to his primary care doctor about switching that. In the meantime I did given additional diuretics for 3 days. 07/07/2023 the patient is here for a pul monary follow-up visit. He has a worsening productive cough, moderate in severity. Associated with chest tightness and increase wheezng and nasal congestion. The patient has not gotten his CPAP yet. We did call the [employer] company. Unfortunately he has not been picking up his phone therefore the [employer] company has not been able to deliver. The patient is aware of this. We did provide the [employer] company a different number in order for them to get in touch with them. In the meantime the patient has the oxygen which has been affecting beneficial. He has not been getting the smaller tanks and therefore it is not portable enough for him to use it outside of the home. I did request to be cylinders with a conserving valve in order for him to start using it. Once he starts getting use to the CPAP and using the CPAP at nighttime on room air will go ahead and request an overnight oximetry to see if he needs oxygen along with CPAP. He continues uses respiratory therapy. Otherwise patient is without any other complaints. [facility] Medical History Asthma Cellulitis of left lower extremity Chronic allergic rhinitis Chronic restrictive lung disease Cocaine abuse Congestive heart failure COPD (chronic obstructive pulmonary disease) Coronary artery disease Diabetes Hyperlipidemia Hypertension Normocytic anemia Obesity Obstructive sleep apnea Opioid abuse Osteopenia (~2016) Pulmonary nodule Smoker Streptococcal bacteremia Surgical History History of colonoscopy History of hernia repair History of orchiectomy, unilateral Family History Father No problems noted. Mother No problems noted. Social History Household Members: None Housing: Condominium Do you presently have visiting nurse or other home services: Yes Alcohol intake: never Patient Tobacco Use Status: Current everyday Tobacco user Tobacco use type: Cigarette Cigarette Packs Per Day: 1 Cigarettes Per Day: 20.0 Substance Use Type: Opiates service: No Current occupational status: disabled Current occupation: Rt handed Review of Systems Const Reports daytime sleepiness and Reports weight gain Eyes Denies change in vision and Reports itchy eyes ENT Reports Normal hearing present, Denies lip swelling, Reports nasal congestion, Reports nasal discharge, Denies throat swelling and Denies tongue swelling Card Denies chest pain, Reports leg edema, Reports dyspnea on exertion and Reports paroxysmal nocturnal dyspnea Resp Reports chest congestion, Reports cough, Denies hemoptysis, Reports dyspnea on exertion and Reports wheezing GI Reports no additional complaints Musc Reports abnormal gait, Reports arthralgias and Reports joint swelling Skin/Breast Denies rash Neuro Reports Normal hearing present and Reports abnormal gait Aller/Immun Reports itchy eyes, Denies lip swelling, Reports seasonal rhinorrhea, Denies throat swelling, Denies tongue swelling and Reports wheezing Physical Exam Vital Signs: Last Vital Signs Pulse 80 07/07/23 08:29 Pulse Ox 93 07/07/23 08:29 Oxygen Delivery Method Room Air 07/07/23 08:29 BMI result Body Mass Index 50.8 Const General: cooperative, healthy appearing and comfortable Orientation/consciousness: oriented to person, oriented to place and oriented to time HEENT Head: Yes normal to inspection Neck Neck: Yes normal visual inspection Carotids: no bruits Chest Chest palpation & inspection: normal inspection of the chest Resp Effort & Inspection: normal respiratory effort and able to speak in complete sentences Auscultation: no crackles, no rales, no rhonchi, wheezes and diminished lung sounds Cardio Rate: regular rate Rhythm: regular rhythm Heart sounds: S1 normal heart sound present and S2 normal heart sound present Bruits: no carotid bruits Peripheral pulses: dorsalis pedis present (Bilateral DP signals) GI Inspection: Yes normal to inspection Skin Other: Healed pretibial ulcer Wounds: no wounds Hair: normal Neuro General: oriented to person, oriented to place and oriented to time Cranial nerves: Yes Normal hearing present Cognition (Neuro): normal cognition Motor exam (neuro): 5/5 motor strength present throughout Extrem Other: venous exam: No significant superficial varicosities or spider telangiectasias, minimal edema General: No clubbing, No cyanosis and No edema Psych Appearance: grossly normal Mental Status: mental status grossly normal Speech and movement: Normal speech and movement present Assessment & Plan Assessment & Plan (1) Chronic allergic rhinitis: Code(s): J30.9 - Allergic rhinitis, unspecified (2) Chronic restrictive lung disease: Code(s): J98.4 - Other disorders of lung (3) Obstructive sleep apnea: Code(s): G47.33 - Obstructive sleep apnea (adult) (pediatric) (4) COPD (chronic obstructive pulmonary disease): Code(s): J44.9 - Chronic obstructive pulmonary disease, unspecified Qualifiers: COPD type: COPD with acute exacerbation Qualified Code(s): J44.1 - Chronic obstructive pulmonary disease with (acute) exacerbation Plan continue Trelegy 200 daily short-acting beta agonist as needed start Medrol pack start singulair smoking cessation. Quit smoking start APAP therapy, Awaiting PAP from [facility]. diuresis as tolerated continue oxygen 2L/pulse with activity, requesting B cylinders with conserving valve. Needs additional education about oxygen and filling tanks Needs overnight oximetry once on CPAP follow-up in 4-6 months Medications: New methylprednisolone (Medrol (Julio C)) PO PER PKG DIR 6 days 21 ea 0RF montelukast (Singulair) 10 mg PO BEDTIME 30 days 30 tabs 11RF J45.909 - Unspecified asthma, uncomplicated Coding Level of Care Code Est Pt Level 4 (94501) Diagnoses Chronic allergic rhinitis J30.9 Chronic restrictive lung disease J98.4 Obstructive sleep apnea G47.33 Chronic obstructive pulmonary disease with acute exacerbation J44.1 COPD type: COPD with acute exacerbation Time Spent (min) 16
== END 2023-07-07 08:47 | disposition home or self-care (01) ==
PROVIDERS: PCP Internal Medicine; Visit Provider Hospitalist
DX: J30.9 Allergic rhinitis, unspecified (principal); J98.4 Other disorders of lung; G47.33 Obstructive sleep apnea (adult) (pediatric); J44.1 Chronic obstructive pulmonary disease with (acute) exacerbation
CPT/HCPCS: 99214

== ENCOUNTER → 2023-07-07 08:27 | Outpatient (BNVA) | payer MEDICAID, SELFPAY | PROVIDERS: PCP Internal Medicine; Visit Provider Hospitalist | DX: J44.1 Chronic obstructive pulmonary disease with (acute) exacerbation (principal); J30.9 Allergic rhinitis, unspecified; J98.4 Other disorders of lung; G47.33 Obstructive sleep apnea (adult) (pediatric); F17.210 Nicotine dependence, cigarettes, uncomplicated; Z79.899 Other long term (current) drug therapy | CPT/HCPCS: 99212 ==

== ENCOUNTER 2023-11-03 09:49 | Outpatient (REF) | payer MEDICARE, MEDICAID, SELFPAY ==
--- NOTE | ~2023-11-03 | US_ITS ---
EXAMINATION: Noninvasive assessment of the bilateral lower extremities with ARTERIAL DUPLEX and ANKLE BRACHIAL INDICES (ABIs). CLINICAL INFORMATION: Peripheral vascular disease TECHNIQUE: Duplex Doppler techniques with waveform analysis and measurement of velocities in the bilateral common femoral, profunda femoris, superficial femoral, popliteal and tibial arteries were performed. Additionally, ankle pulse volume recordings, ankle pressure measurements and ankle brachial indices were obtained of the lower extremity arterial system bilaterally. The study was performed only at rest. COMPARISON: 10/17/2022 FINDINGS: DIRECT DUPLEX DOPPLER FINDINGS: RIGHT LEG: Common femoral artery: 127 cm/s, phasicity: Triphasic Profunda femoris artery: 77.6 cm/s, phasicity: Monophasic Superficial femoral artery (proximal): 116 cm/s, phasicity: Triphasic Superficial femoral artery (mid): 104 cm/s, phasicity: Triphasic Superficial femoral artery (distal): 103 cm/s, phasicity: Triphasic Popliteal artery: 83.9 cm/s, phasicity: Triphasic Posterior tibial artery: 202 cm/s, phasicity: Triphasic Peroneal artery: Not visualized Anterior tibial artery: 100 cm/s, phasicity: Triphasic Dorsalis pedis artery: 65.3 cm/s, phasicity:Triphasic LEFT LEG: Common femoral artery: 125 cm/s, phasicity: Triphasic Profunda femoris artery: 87.0 cm/s, phasicity: Triphasic Superficial femoral artery (proximal): 101 cm/s, phasicity: Triphasic Superficial femoral artery (mid): 96.4 cm/s, phasicity: Triphasic Superficial femoral artery (distal): 98.0 cm/s, phasicity: Triphasic Popliteal artery: 70.8 cm/s, phasicity: Triphasic Posterior tibial artery: 109 cm/s, phasicity: Triphasic Peroneal artery: Not visualized Anterior tibial artery: 73.9 cm/s, phasicity: Triphasic Dorsalis pedis artery: 42.2 cm/s, phasicity: Biphasic ANKLE-BRACHIAL INDEX: Right: 1.34? Left: 1.34 ANKLE PRESSURES: Right: PT greater than 200, DP inaudible Left: PT?greater than 200, DP?inaudible ANKLE PVR WAVEFORMS: Right: Normal Left: Normal US/US arterial duplex LE BI IMPRESSION: Right leg: Nondiagnostic ankle brachial index. Duplex ultrasound demonstrates patent arterial flow throughout the right lower extremity. Left leg: Nondiagnostic ankle brachial index. Duplex ultrasound demonstrates patent arterial flow throughout the right lower extremity. JAZZ Reference: - >1.4 = calcified vessels - 0.9 - 1.4 = normal - no significant arterial disease - 0.7 - 0.89 = mild peripheral arterial disease - 0.51 - 0.69 = moderate peripheral arterial disease - ? 0.50 = severe peripheral arterial disease - < .30 = critical arterial disease
== END 2023-11-03 09:50 | disposition home or self-care (01) ==
LOC: HO.US 09:49
PROVIDERS: PCP Internal Medicine; Visit Provider Surgery Vascular Surgery
DX: I70.213 Atherosclerosis of native arteries of extremities with intermittent claudication, bilateral legs (principal)
CPT/HCPCS: 93923; 93925

== ENCOUNTER 2023-12-02 12:51 | Outpatient (AMB) | payer MEDICARE, SELFPAY ==
--- NOTE | 2023-12-02 12:52 | A.OFFVIS_ITS ---
Intake Intake Visit Reasons: 1 Year f/u Art US 11/03/23 Intake Note: Patient presents for 1 year follow up s/p arterial US. No pain, does have swelling and discoloration. Allergies crab [CRAB] Allergy (Unknown, Verified 12/02/23 12:57) ANAPHYLAXIS lisinopril [LISINOPRIL] Allergy (Unknown, Verified 12/02/23 12:57) cough Penicillins [PCN] Allergy (Unknown, Verified 12/02/23 12:57) RASH Sulfa (Sulfonamide Antibiotics) [SULFA (SULFONAMIDE ANTIBIOTICS)] Allergy (Unknown, Verified 12/02/23 12:57) RASH HPI 1 Year f/u Art US 11/03/23 HPI Details Morbidly obese 63-year-old gentleman presents for evaluation regarding lower extremity pain. Swelling on the right lower extremity and reports that he has difficulty ambulating. He has undergone noninvasive arterial testing and now presents for follow-up. Upon further discussion with him his biggest source of complaint is his knees. He reports that the knees lock up on him right more so than left. Now for re-evaluation [facility] Medical History Asthma Cellulitis of left lower extremity Chronic allergic rhinitis Chronic restrictive lung disease Cocaine abuse Congestive heart failure COPD (chronic obstructive pulmonary disease) Coronary artery disease Diabetes Hyperlipidemia Hypertension Normocytic anemia Obesity Obstructive sleep apnea Opioid abuse Osteopenia (~2016) Pulmonary nodule Smoker Streptococcal bacteremia Surgical History History of colonoscopy History of hernia repair History of orchiectomy, unilateral Family History Father No problems noted. Mother No problems noted. Social History Household Members: None Housing: Condominium Do you presently have visiting nurse or other home services: Yes Alcohol intake: never Comment: refuses alarm Patient Tobacco Use Status: Current everyday Tobacco user Tobacco use type: Cigarette Cigarette Packs Per Day: 1 Cigarettes Per Day: 20.0 Substance Use Type: Opiates service: No Current occupational status: disabled Current occupation: Rt handed Review of Systems Const All systems reviewed & are unremarkable except as noted in HPI and below Reports no additional complaints ENT Reports Normal hearing present Card Denies chest pain, Denies chest pain at rest, Denies chest pain with activity and Denies pedal edema Resp Denies cough GI Denies abdominal pain Musc Denies abnormal gait, Denies muscle cramps and Denies radiating pain into limb Skin/Breast Denies skin ulcer and Denies wounds Neuro Reports Normal hearing present and Denies abnormal gait Psych Reports no additional complaints Physical Exam Const General: cooperative, healthy appearing and comfortable Orientation/consciousness: oriented to person, oriented to place and oriented to time HEENT Head: Yes normal to inspection Neck Neck: Yes normal visual inspection Carotids: no bruits Chest Chest palpation & inspection: normal inspection of the chest Resp Effort & Inspection: normal respiratory effort and able to speak in complete sentences Auscultation: clear to auscultation bilaterally, no crackles, no rales, no rhonchi and no wheezes Cardio Other: Bilateral DP signals Rate: regular rate Rhythm: regular rhythm Heart sounds: S1 normal heart sound present and S2 normal heart sound present Bruits: no carotid bruits GI Inspection: Yes normal to inspection Skin Wounds: no wounds Hair: normal Neuro General: oriented to person, oriented to place and oriented to time Cranial nerves: Yes CN's II-XII intact bilaterally and Yes Normal hearing present Cognition (Neuro): normal cognition Motor exam (neuro): 5/5 motor strength present throughout Extrem Other: venous exam: +1 edema General: No clubbing, No cyanosis and Yes edema Psych Appearance: grossly normal Mental Status: mental status grossly normal Speech and movement: Normal speech and movement present Results Reviewed Results Reviewed: Noninvasive arterial testing dated 11/03/2023 demonstrates JAZZ on the right 1.34 and on the left of 1.34 with multi phasic waveforms all the way down. Written report and images were reviewed. Assessment & Plan Assessment & Plan (1) Leg pain: Code(s): M79.606 - Pain in leg, unspecified Qualifiers: Laterality: bilateral Qualified Code(s): M79.604 - Pain in right leg; M79.605 - Pain in left leg Plan: In short patient has bilateral lower extremity leg pain. It does not appear to be vascular in nature as the patient does have normal arterial flow. He does have significant swelling but is not really a candidate for any venous treatment. Due to his morbidly obese size I do think he may be well served with an evaluation by pain management. He does complain of bilateral knee pain in particular. Will follow up with us on an as-needed basis. We will make the referral for pain management. Thank you for allowing us to assist in his care. If there are any questions or concerns please do not hesitate to contact us. Coding Level of Care Code Est Pt Level 4 (26773) Diagnoses Pain in both lower extremities M79.604; M79.605 Laterality: bilateral
== END 2023-12-02 13:22 | disposition home or self-care (01) ==
PROVIDERS: PCP Internal Medicine; Visit Provider Surgery Vascular Surgery
DX: M79.604 Pain in right leg (principal); M79.605 Pain in left leg
CPT/HCPCS: 99213

== ENCOUNTER → 2023-12-02 12:51 | Outpatient (BNVA) | payer MEDICARE, SELFPAY | PROVIDERS: PCP Internal Medicine; Visit Provider Surgery Vascular Surgery | DX: M79.604 Pain in right leg (principal); M79.605 Pain in left leg | CPT/HCPCS: 99212 ==

== ENCOUNTER → 2023-12-22 13:30 | Outpatient (BNVA) | payer MEDICARE, SELFPAY | PROVIDERS: PCP Internal Medicine; Visit Provider Anesthesiology | DX: M17.0 Bilateral primary osteoarthritis of knee (principal); E11.42 Type 2 diabetes mellitus with diabetic polyneuropathy; E66.01 Morbid (severe) obesity due to excess calories; M85.80 Other specified disorders of bone density and structure, unspecified site; Z68.42 Body mass index [BMI] 45.0-49.9, adult | CPT/HCPCS: 99202 ==

== ENCOUNTER 2023-12-22 13:31 | Outpatient (AMB) | payer MEDICARE, MEDICAID, SELFPAY ==
--- NOTE | 2023-12-22 13:31 | A.OFFVIS_ITS ---
Vital Signs 12/22/23 13:54 Height 5 ft 6 in Weight 302 lb 2 oz BMI 48.8 BP 134/80 Blood Pressure Location Lt brachial Position Sitting Respiration 18 Pulse 81 Pulse Source Pulse Oximeter Pulse Oximetry (%) 99 Oxygen Delivery Method Room Air Intake Visit Reasons: Left leg pain Intake Note: Patient comes in with his [employer]PER[employer] Reggie for his initial visit was referred by Vascular Surgeon. Reports pain 06/10. Allergies crab [CRAB] Allergy (Unknown, Verified 12/22/23 13:53) ANAPHYLAXIS lisinopril [LISINOPRIL] Allergy (Unknown, Verified 12/22/23 13:53) cough Penicillins [PCN] Allergy (Unknown, Verified 12/22/23 13:53) RASH Sulfa (Sulfonamide Antibiotics) [SULFA (SULFONAMIDE ANTIBIOTICS)] Allergy (Unknown, Verified 12/22/23 13:53) RASH HPI Comments Details: Mr. Meier is in my office by referral of vascular surgery. He was under care of vascular surgery for about a year. He was diagnosed with cellulitis of bilateral lower extremities. He was under care of wound clinic. He reports most of the pain in the projection of the bilateral knees bilateral shins in bilateral feet. He reports that pain is strongest with standing. He reports that he can not sleep normally can not do activities of daily living can not take care of himself can not function normally he is on permanent disability. He needs walker for ambulation. Heat applications cold application the weather changes aggravate his pain. The pain is most severe at night. The vascular surgeon did not find any reason to treat his pain surgically. He reports his pain in terms of tissue damage as hot burning scalding searing tingling stinging sensation. In the past he [place] [facility] [place]-ray demonstrated bilateral knee arthritis and osteoporosis. He never had physical therapy. He never had any injections. He is very negative about injections. His past medical history significant for hypertension diabetes and obstructive sleep apnea. He denies any surgeries that he remembers. He admits smoking cigarettes denies drinking alcohol denies caffeinated beverages and denies recreational drugs. [facility] Medical History Asthma Cellulitis of left lower extremity Chronic allergic rhinitis Chronic restrictive lung disease Cocaine abuse Congestive heart failure COPD (chronic obstructive pulmonary disease) Coronary artery disease Diabetes Hyperlipidemia Hypertension Normocytic anemia Obesity Obstructive sleep apnea Opioid abuse Osteopenia (~2016) Pulmonary nodule Smoker Streptococcal bacteremia Surgical History History of colonoscopy History of hernia repair History of orchiectomy, unilateral Family History Father No problems noted. Mother No problems noted. Social History Household Members: None Housing: Condominium Do you presently have visiting nurse or other home services: Yes Alcohol intake: never Comment: refuses alarm Patient Tobacco Use Status: Current everyday Tobacco user Tobacco use type: Cigarette Cigarette Packs Per Day: 1 Cigarettes Per Day: 20.0 Substance Use Type: Opiates service: No Current occupational status: disabled Current occupation: Rt handed Review of Systems Const All systems reviewed & are unremarkable except as noted in HPI and below Reports no additional complaints, Reports fatigue, Reports lethargy and Reports weakness (Bilateral lower extremities) ENT Reports Normal hearing present Card Denies chest pain, Denies chest pain at rest, Denies chest pain with activity and Reports pedal edema Resp Denies cough GI Denies abdominal pain Musc Reports abnormal gait, Denies muscle cramps, Reports numbness, Reports tingling and Reports other (Burning sensation) Skin/Breast Denies skin ulcer and Denies wounds Neuro Reports Normal hearing present, Denies Abnormal speech present, Reports abnormal gait, Denies confusion, Reports numbness, Denies Sensory deficit (Neuro), Reports tingling and Reports weakness (Bilateral lower extremities) Psych Reports no additional complaints and Denies confusion Endo Reports fatigue Physical Exam Vital Signs: Last Vital Signs Pulse 81 12/22/23 13:54 Resp 18 12/22/23 13:54 BP 134/80 12/22/23 13:54 Pulse Ox 99 12/22/23 13:54 Oxygen Delivery Method Room Air 12/22/23 13:54 BMI result Body Mass Index 48.8 Const General: no acute distress; No confusion Nutritional Appearance: obese morbidly obese Orientation/consciousness: patient oriented x3 and No confusion Eyes General: appearance normal, both eyes and all related structures Pupils: Equal, round and reactive pupils present EOM: EOMs intact bilaterally Neck Neck: Yes full ROM Chest Chest palpation & inspection: normal inspection of the chest Resp Effort & Inspection: normal respiratory effort, able to speak in complete sentences, normal respiratory pattern, no audible wheezes and no cough Cardio Jugular venous distension: no JVD GI Inspection: Yes normal to inspection Neuro General: patient oriented x3, gait normal and No confusion Cranial nerves: Yes CN's II-XII intact bilaterally, Yes Equal, round and reactive pupils present, Yes Normal hearing present and Yes Ability to bilaterally elevate shoulders present Speech: No Abnormal speech present Gait exam (Neuro): Normal gait present Motor exam (neuro): 5/5 motor strength present throughout Sensory Exam: No Sensory deficit (Neuro) Extrem Other: On physical exam there are small reddish discoloration is on the surface of the anterior shins, there is significant bilateral lower extremities pitting edema. Anterior posterior drawers signs on the knees are negative. Minimal crepitation in the flexion of bilateral knees. Range of motion is limited on the knees. Lateral and medial collateral ligaments are stable on the physical examination. General: No pedal edema Psych Speech and movement: Normal speech and movement present Affect: normal affect Attitude: cooperative Thought process: Normal thought process present Thought content: Normal thought content present Insight: Good insight present (Psych) Judgement: Good judgement present (Psych) Results Reviewed Results Reviewed: Three views of the left knee. FINDINGS: Small quadriceps enthesophyte. Moderate medial joint space narrowing. Moderate medial and posterior patellar osteophytes. Bones are diffusely demineralized. XR/XR knee LT 3V IMPRESSION: Moderate degenerative changes. 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 I also discussed possibility of treating his knees osteoarthritis with intra- articular steroid injections. Patient is very negative about injections. I explained to the patient that if he wants to continue his gabapentin further on he may address this issue with his primary care physician. If he can not accept any injections unfortunately in the office of pain management the will be very little which we can help him with. Medications: New gabapentin 300 mg PO TID 30 days 90 caps 6RF Patient Instructions: I here by testify that I spent 45 minutes in conversation with this patient as well as evaluating his prior records, his prior prescription records, and organizing this note. This appointment with facilitated by meal temperer [id number] from voice Thomas
[2023-12-22 13:54] VITALS: BP 134/80; PULSE 81; RESP 18; O2SAT 99; BMI 48.8
== END 2023-12-22 14:04 | disposition home or self-care (01) ==
PROVIDERS: PCP Internal Medicine; Visit Provider Anesthesiology
DX: M17.0 Bilateral primary osteoarthritis of knee (principal); E11.42 Type 2 diabetes mellitus with diabetic polyneuropathy; E66.01 Morbid (severe) obesity due to excess calories; M85.80 Other specified disorders of bone density and structure, unspecified site
CPT/HCPCS: 99204

== ENCOUNTER 2024-01-29 10:03 | Outpatient (REF) | payer MEDICARE, MEDICAID, SELFPAY ==
[2024-01-29 11:51] LABS: Alanine Aminotransferase 11 U/L (0-40); Albumin Level 3.7 g/dL (3.5-5.0); Alkaline Phosphatase 76 U/L (39-117); Anion Gap 11 (12-20); Aspartate Amino Transferase 13 U/L (5-37); Bilirubin Direct 0.2 mg/dL (0.0-0.5); Bilirubin Total 0.3 mg/dL (0.0-1.0); Blood Urea Nitrogen 16 mg/dL (9-16); Calcium 9.6 mg/dL (8.4-10.2); Carbon Dioxide 27 mmol/L (22-29); Chloride 111 mmol/L (96-108); Cholesterol 162 mg/dL (<200); Estimated Glomerular Filt Rate > 60; Glucose Random 180 mg/dL (60-115); HDL Cholesterol 39 mg/dL (>40); LDL Cholesterol Calculated 103 mg/dL (<100); Potassium 4.3 mmol/L (3.3-5.1); Sodium 145 mmol/L (135-145); Total Protein 6.3 g/dL (6.5-8.0); Triglycerides 101 mg/dL (<150)
== END 2024-01-29 10:04 | disposition home or self-care (01) ==
LOC: HO.HHCL 10:03
PROVIDERS: Visit Provider Internal Medicine
DX: I12.9 Hypertensive chronic kidney disease with stage 1 through stage 4 chronic kidney disease, or unspecified chronic kidney disease (principal); E11.22 Type 2 diabetes mellitus with diabetic chronic kidney disease; N18.30 Chronic kidney disease, stage 3 unspecified; Z79.4 Long term (current) use of insulin
CPT/HCPCS: 36415; 80048; 80061; 80076

== ENCOUNTER 2024-03-05 08:14 | Outpatient (REF) | payer MEDICARE, MEDICAID, SELFPAY ==
[2024-03-05 12:02] LABS: Creatinine Urine 165.97 mg/dL; Microalbum/Creatinine Ratio Ur 13.2 ug/mg cr (<30)
== END 2024-03-05 08:15 | disposition home or self-care (01) ==
LOC: HO.HHCL 08:14
PROVIDERS: Visit Provider Internal Medicine
DX: E11.22 Type 2 diabetes mellitus with diabetic chronic kidney disease (principal); N18.30 Chronic kidney disease, stage 3 unspecified; Z79.4 Long term (current) use of insulin
CPT/HCPCS: 82043; 82570

== ENCOUNTER 2024-04-13 08:00 | Outpatient (RCR) | payer MEDICARE, SELFPAY | END 2024-07-23 14:10 | disposition home or self-care (01) | LOC: HO.WCC 08:00 | PROVIDERS: PCP Internal Medicine; Visit Provider Physician Assistant | DX: I87.333 Chronic venous hypertension (idiopathic) with ulcer and inflammation of bilateral lower extremity (principal); L97.822 Non-pressure chronic ulcer of other part of left lower leg with fat layer exposed; L97.812 Non-pressure chronic ulcer of other part of right lower leg with fat layer exposed; Q82.0 Hereditary lymphedema; Z79.85 Long-term (current) use of injectable non-insulin antidiabetic drugs; Z79.899 Other long term (current) drug therapy; Z79.2 Long term (current) use of antibiotics | CPT/HCPCS: 11042; 97597; 97598; 99214 ==

== ENCOUNTER 2024-04-21 11:22 | Outpatient (AMB) | payer MEDICARE, SELFPAY ==
[2024-04-21 11:21] VITALS: BP 108/60; PULSE 68; O2SAT 95; BMI 50.4
--- NOTE | 2024-04-21 11:21 | MHC.OFFVIS ---
Vital Signs 04/21/24 11:21 Height 5 ft 6 in Weight 312 lb 2.793 oz BMI 50.4 BP 108/60 Blood Pressure Location Lt brachial Position Sitting Pulse 68 Pulse Source Pulse Oximeter Pulse Oximetry (%) 95 Oxygen Delivery Method Room Air Intake Visit Reasons: Colonoscopy Screening Intake Note: Christine presents in office today for a scheduled colo consult. CC; Pt has prior hx of colo s/p but cannot recall when his last s/p was. Pt believes that he might have had the procedure here. Pt is due for recall per their PCP. Pt does report having constipation as his only concern. Pt states that he has been suffering with moderate to severe constipation for the last few months. Pt reports that he has previously gone weeks in between having BMs. Pt states that he will often have severe pain and straining with these movements to the point of tears. Pt states that the stool is frequently very hard and often comes out in small stones or pebble sized amounts. Pt confirms that he is still taking all GI medications as instructed and they are not effective for him. Field Installer Required: Yes Field Installer Services: Field Installer Present Field Installer Name: [id number] Campbell Information Interpreted: non-clinical & clinical Accompanied by: Unknown Allergies crab [CRAB] Allergy (Unknown, Verified 05/05/24 12:16) ANAPHYLAXIS lisinopril [LISINOPRIL] Allergy (Unknown, Verified 05/04/24 13:01) cough Penicillins [PCN] Allergy (Unknown, Verified 05/04/24 13:01) RASH Sulfa (Sulfonamide Antibiotics) [SULFA (SULFONAMIDE ANTIBIOTICS)] Allergy (Unknown, Verified 05/04/24 13:01) RASH HPI HPI Colonoscopy Screening: Details: 63 year old? male with past medical history osteoarthritis of bilateral knees, chronic venous hypertension with ulcer of left lower extremity, osteopenia, Congestive heart failure, right bundle branch block, hypertension, diabetes, restrictive lung disease, asthma, pulmonary nodule, hyperlipidemia is here today for pre colonoscopy screening.? Patient was sent to us by his PCP.? .? Patient denies any gastrointestinal symptoms in the past or at present.? Denies any personal or family history of gastrointestinal disease, colon polyps, or CRC.? Denies history of difficulty with sedation or anesthesia in the past.? Negative for history of sleep apnea, although patient believes that he never was tested.? Patient denies any cardiac or respiratory symptoms.?? No history of infectious? diseases like hepatitis A, B, C, HIV or tuberculosis.? Patient is on Plavix [facility] Medical History Cellulitis of left lower extremity Osteopenia (~2016) PAD (peripheral artery disease) Heart failure with preserved ejection fraction MELISSA (acute kidney injury) Heroin abuse Cocaine abuse Acute on chronic right heart failure Chronic restrictive lung disease Pulmonary nodule Chronic allergic rhinitis Asthma Streptococcal bacteremia COPD (chronic obstructive pulmonary disease) Normocytic anemia Coronary artery disease Obstructive sleep apnea Smoker Congestive heart failure Opioid abuse Diabetes Hyperlipidemia Hypertension Obesity Surgical History History of orchiectomy, unilateral History of colonoscopy History of hernia repair Family History Father No problems noted. Mother No problems noted. Social History Household Members: None Housing: Condominium Do you presently have visiting nurse or other home services: Yes Alcohol intake: never Comment: refuses alarm Patient Tobacco Use Status: Current everyday Tobacco user Tobacco use type: Cigarette Cigarette Packs Per Day: 1 Cigarettes Per Day: 20.0 Smoked in Last 30 Days: Yes Use of substances other than those prescribed or required for medical reasons: No Substance Use Type: Opiates Advance Directives: No Advance Directives Information Provided: Yes service: No Current occupational status: disabled Current occupation: Rt handed Review of Systems Const Denies weight gain and Denies weight loss ENT Reports no additional complaints, Denies dysphagia and Denies odynophagia Card Reports no additional complaints Resp Reports no additional complaints GI Denies abdominal pain, Denies belching, Denies melena, Denies bloating, Denies change in bowel habits, Reports constipation, Denies dysphagia, Denies excessive flatus, Denies dyspepsia, Denies heartburn, Denies diarrhea, Denies loose stools, Denies nausea, Denies odynophagia and Denies vomiting Reports no additional complaints Musc Reports no additional complaints Neuro Reports no additional complaints Psych Reports no additional complaints Endo Reports no additional complaints Physical Exam Vital Signs: Last Vital Signs Pulse 68 08/21/24 11:21 BP 108/60 04/21/24 11:21 Pulse Ox 95 04/21/24 11:21 Oxygen Delivery Method Room Air 04/21/24 11:21 BMI result Body Mass Index 50.4 Const General: healthy appearing and no acute distress Nutritional Appearance: obese Orientation/consciousness: patient oriented x3 Eyes General: appearance normal, both eyes and all related structures Neck Neck: Yes normal visual inspection, Yes full ROM and Yes trachea midline Thyroid: Thyroid normal Resp Effort & Inspection: normal respiratory effort, able to speak in complete sentences, no tracheal deviation and symmetric chest movement Auscultation: clear to auscultation bilaterally Cardio Rate: regular rate GI Inspection: Yes normal to inspection, No distended and Yes obesity Palpation (GI): Soft to palpation, not firm, nontender and No hepatosplenomegaly present Auscultation: normal bowel sounds General: Yes no CVA tenderness Back/Spine/Pelvis Back: no CVA tenderness Skin General skin exam: elasticity normal, turgor normal and dry skin Neuro General: patient oriented x3 Psych Appearance: grossly normal Mental Status: mental status grossly normal Assessment & Plan Assessment & Plan (1) Screen for colon cancer: Code(s): Z12.11 - Encounter for screening for malignant neoplasm of colon Plan Patient denies any GI, cardiac or respiratory symptoms.? Denies any issues with anesthesia in the past.? Denies any history of sleep apnea.? No history infectious diseases in the past or present.? Patient is on Plavix. Patient denies melena, hematochezia, unintentional weight loss or ribbon like stools.? Discussed at length the pre-procedure,? prep, diet & medications as well as what to expect prior, during and after the procedure.?? Patient is not moving his bowels constipation. Takes Dulcolax 1 tablet as needed. Patient was encouraged to take 2 tablets daily. Patient can also take stool softeners and MiraLax in the morning. If he continues to constipation he will call our office. I will see him in 2 months to discuss going for colonoscopy. Patient sees cardiology, please call his emergency dispatch operator to make sure that he can be cleared for the procedure. Patient is agreeable to this plan and verbalizes understanding of instructions. He was given the opportunity to ask questions and all questions answered. Thank you for allowing me to participate in his care Medications: New docusate sodium 200 mg (2 x 100 mg) PO DAILY 60 caps 2RF Changed From polyethylene glycol 3350 17 grams PO DAILY PRN 510 grams 0RF constipation To polyethylene glycol 3350 (Miralax) 17 grams PO DAILY PRN 510 grams 0RF constipation From bisacodyl 5 mg PO BEDTIME PRN 30 tabs 0RF constipation To bisacodyl (Dulcolax (bisacodyl)) 10 mg (2 x 5 mg) PO BEDTIME 60 tabs 2RF constipation Coding Level of Care Code New Pt Level 3 (43851) Diagnoses Screen for colon cancer Z12.11 Time Spent (min) 40 Comment 30 minutes spent with patient and additional 10 minutes spent reviewing his records
== END 2024-04-21 13:32 | disposition home or self-care (01) ==
LOC: HO.HGI 11:22
PROVIDERS: PCP Internal Medicine; Visit Provider Nurse Practitioner Family
DX: K59.00 Constipation, unspecified (principal); Z01.818 Encounter for other preprocedural examination; Z12.11 Encounter for screening for malignant neoplasm of colon
CPT/HCPCS: 99203

== ENCOUNTER → 2024-04-21 11:22 | Outpatient (BNVA) | payer MEDICARE, SELFPAY | PROVIDERS: PCP Internal Medicine; Visit Provider Nurse Practitioner Family | DX: Z12.11 Encounter for screening for malignant neoplasm of colon (principal) | CPT/HCPCS: 99202 ==

== ENCOUNTER 2024-05-04 12:43 | Outpatient (AMB) | payer MEDICARE, SELFPAY ==
[2024-05-04 12:59] VITALS: BP 132/70; PULSE 71; O2SAT 94; BMI 50.3
--- NOTE | 2024-05-04 12:59 | MHC.OFFVIS ---
Vital Signs 05/04/24 12:59 Height 5 ft 6 in Weight 311 lb 8.211 oz BMI 50.3 BP 132/70 Blood Pressure Location Lt brachial Position Sitting Pulse 71 Pulse Source Pulse Oximeter Pulse Oximetry (%) 94 Oxygen Delivery Method Room Air Intake Visit Reasons: Oxygen Renewal/ Allergies crab [CRAB] Allergy (Unknown, Verified 05/04/24 13:01) ANAPHYLAXIS lisinopril [LISINOPRIL] Allergy (Unknown, Verified 05/04/24 13:01) cough Penicillins [PCN] Allergy (Unknown, Verified 05/04/24 13:01) RASH Sulfa (Sulfonamide Antibiotics) [SULFA (SULFONAMIDE ANTIBIOTICS)] Allergy (Unknown, Verified 05/04/24 13:01) RASH HPI Comments Details: The patient is a 63-year-old gentleman with a known history of tobacco dependency, history substance abuse, obstructive sleep apnea COPD who presents with worsening respiratory symptoms. The patient has a hard time walking. Currently he is wearing a boot for an orthopedic injury after fall. He is very winded very quickly. He is wondering if he can get oxygen to help him with his breathing. In addition to that he does take respiratory inhalers previous not know the names and currently he has run out. He recently got a new [employer] who has been trying to help him with all his medical needs. The patient does have a lot of issues. Unfortunately to he continues to smoke cigarettes. He is up to 2 packs a day. Explained to him that we can try to help him improve his respiratory symptoms but will not going to be able to get anywhere unless he also does his part and quit smoking. The patient recently in September was evaluated for worsening respiratory symptoms in the ER. The patient did have a CTA which is very suboptimal because of respiratory artifact since he was having hard time breathing. No obvious blood clots or any other abnormalities noted. He is also part of the lung cancer screening program at [facility]. We did personally review that CT scan which is reassuring without any significant nodular densities to wear about. The patient will continue getting yearly CT scans through that program. During the office visit we did do a brief walking oximetry. His oxygenation actually got better the longer he walks. Although because is blue in his lower extremity weakness he was not able to walk too far. Although his pulse ox may stay around 96% with ambulation on room air. Therefore, the patient does not qualify for oxygen. I also explained to him that if he were to qualify that it will be relatively contraindicated with smoking because of the risk of fire any injury. The patient also has a CPAP. He is not clear how much she is using it. Does not seem like he is getting supplies at this time. He is not sure the name of the DME company. Therefore, I did request that he bring his machine to the next visit so we can adjusted downloaded and figure out from the [employer] company if he needs a new sleep study or if he just needs a prescription sent. 11/29/2021 the patient is here for a pulmonary follow-up visit. Overall the patient continues to be about the same. He has been trying to cut down on the smoking. Still complaining of shortness of breath with activity moderate severity. He did undergo pulmonary function studies today which we personally reviewed. The patient has evidence of small airway disease likely from respiratory bronchiolitis related to the smoking. In addition, has mild restrictive lung disease we may be which may be related to his underlying elevated BMI. He did have a repeat CT scan of the chest demonstrating interval resolution of the pneumonitis. Still has some areas of scarring primarily in the left hemithorax. This is minimal. Patient does have mild diffusion impairment on PFTs but it does correct to normal when correcting for the alveolar volume suggesting that is related to the elevated BMI. At this point the patient needs to be started on maintenance therapy to a provide him with better symptom relief. The patient needs to continue with smoking cessation. Also to note the patient has been having significant daytime drowsiness. His [place] score continues to be elevated it would over 24. We did request the DME to the liver him a new CPAP. However, he has not her as of yet. I explained to him that this is a titus with the pandemic is been difficult for getting CPAP but will requesting update from the [employer] at this time. 02/28/2022 the patient is here for a pulmonary follow-up visit. He continues to have significant daytime drowsiness. His [place] score continues to be elevated 08/24. He did have a sleep study personally reviewed. He did have an AHI of 20 consistent moderate to severe ABDOULAYE. He also has significant hypoxia. The patient needs to start CPAP therapy as soon as possible specially with cardiovascular risk factors. Again, he had a CPAP in the past more than 5 years ago which is no longer functional. He did bring it to the office and was in a bag and was infested with cockroaches and mold and mildew. At which point which is to await the machine because he was hazardous. therefore, the patient needs to be set up with a new APAP. We will request that from a local [employer] company. In the meantime he continues to have shortness of breath and wheezing. Unfortunately had not been using the Trelegy inhaler. I did send to the pharmacy and re-educated about using the maintenance therapy. He does have a rescue inhaler he can also use. He is cutting down on the smoking he is on to about 9 cigarettes a day. That is significantly better than the 2 packs a was smoking before. He has significant lower extremity edema. He does take diuretics. It is likely the Norvasc medication. He will talk to his primary care doctor about switching that. In the meantime I did given additional diuretics for 3 days. 07/07/2023 the patient is here for a pulmonary follow-up visit. He has a worsening productive cough, moderate in severity. Associated with chest tightness and increase wheezng and nasal congestion. The patient has not gotten his CPAP yet. We did call the [employer] company. Unfortunately he has not been picking up his phone therefore the [employer] company has not been able to deliver. The patient is aware of this. We did provide the [employer] a different number in order for them to get in touch with them. In the meantime the patient has the oxygen which has been affecting beneficial. He has not been getting the smaller tanks and therefore it is not portable enough for him to use it outside of the home. I did request to be cylinders with a conserving valve in order for him to start using it. Once he starts getting use to the CPAP and using the CPAP at nighttime on room air will go ahead and request an overnight oximetry to see if he needs oxygen along with CPAP. He continues uses respiratory therapy. Otherwise patient is without any other complaints. 05/04/2024 the patient is here for a pulmonary follow-up visit. He continues to struggle with his breathing. Has significant dyspnea on exertion. Moderate to severe with minimal activity. Does have significant lower extremity edema as well and significant arthritis at make it also very difficult for her to ambulate. Unfortunately, continues to smoke cigarettes. He needs to quit. He has had a hard time. He is willing to try the Nicorette gum. He has had a bad reaction to the patches in the past. The patient also has been on Breo. Will try to optimize her therapy switching over to Trelegy. I will send that to the pharmacy we did taken for 6 minute walk test. The patient can not tolerate much ambulation. Will quickly stop. Although he did desaturate. Placed on 2 L pulse to maintain a pulse ox of 93%. He needs to continue using oxygen. Having hard time with the oxygen tanks. Therefore, I do believe that the portable oxygen concentrator would be a better option for him to given better portability outside of the home. Will request for the he is also using the CPAP at nighttime. The CPAP therapy has been affecting beneficial. He is trying to use it more than 4 hours a night. The patient will have an overnight oximetry on the CPAP to see if he also needs oxygen while sleeping. Patient will return in 4-6 months he has any issues prior to this he will call for an earlier assessment. [facility] Medical History Cellulitis of left lower extremity Osteopenia (~2016) PAD (peripheral artery disease) Heart failure with preserved ejection fraction MELISSA (acute kidney injury) Heroin abuse Cocaine abuse Acute on chronic right heart failure Chronic restrictive lung disease Pulmonary nodule Chronic allergic rhinitis Asthma Streptococcal bacteremia COPD (chronic obstructive pulmonary disease) Normocytic anemia Coronary artery disease Obstructive sleep apnea Smoker Congestive heart failure Opioid abuse Diabetes Hyperlipidemia Hypertension Obesity Surgical History History of orchiectomy, unilateral History of colonoscopy History of hernia repair Family History Father No problems noted. Mother No problems noted. Social History Household Members: None Housing: Condominium Do you presently have visiting nurse or other home services: Yes Alcohol intake: never Comment: refuses alarm Patient Tobacco Use Status: Current everyday Tobacco user Tobacco use type: Cigarette Cigarette Packs Per Day: 1 Cigarettes Per Day: 20.0 Substance Use Type: Opiates service: No Current occupational status: disabled Current occupation: [employer] Reports daytime sleepiness and Reports weight gain Eyes Denies change in vision and Reports itchy eyes ENT Reports Normal hearing present, Denies lip swelling, Reports nasal congestion, Reports nasal discharge, Denies throat swelling and Denies tongue swelling Card Denies chest pain, Reports leg edema, Reports dyspnea on exertion and Reports paroxysmal nocturnal dyspnea Resp Reports chest congestion, Reports cough, Denies hemoptysis, Reports dyspnea on exertion and Reports wheezing GI Reports no additional complaints Musc Reports abnormal gait, Reports arthralgias and Reports joint swelling Skin/Breast Denies rash Neuro Reports Normal hearing present and Reports abnormal gait Aller/Immun Reports itchy eyes, Denies lip swelling, Reports seasonal rhinorrhea, Denies throat swelling, Denies tongue swelling and Reports wheezing Physical Exam Vital Signs: Last Vital Signs Pulse 71 05/04/24 12:59 BP 132/70 05/04/24 12:59 Pulse Ox 94 05/04/24 12:59 Oxygen Delivery Method Room Air 05/04/24 12:59 BMI result Body Mass Index 50.3 Neuro Cranial nerves: Yes Normal hearing present Office Procedures 6 Minute Walk Time:: 23:08 SPO2 % at rest: 95 Pulse at rest: 88 SPO2 % during excercise: 88 Pulse during excercise: 105 Distance in yards walked: 50 Juan M Score: 8 Supplemental Oxygen: Very dyspneic with minimal activity. Desaturated to 88% with activity. placed on oxygen 2L/pulse maintaining pox 93% with activity. [id number] - 6 Minute Walk Assessment & Plan Assessment & Plan (1) Chronic allergic rhinitis: Code(s): J30.9 - Allergic rhinitis, unspecified Category: Medical (2) Chronic restrictive lung disease: Code(s): J98.4 - Other disorders of lung Category: Medical (3) Obstructive sleep apnea: Code(s): G47.33 - Obstructive sleep apnea (adult) (pediatric) Category: Medical (4) COPD (chronic obstructive pulmonary disease): Code(s): J44.9 - Chronic obstructive pulmonary disease, unspecified Category: Medical Qualifiers: COPD type: COPD with acute exacerbation Qualified Code(s): J44.1 - Chronic obstructive pulmonary disease with (acute) exacerbation Plan start Trelegy 200 daily stop Breo short-acting beta agonist as needed continue singulair smoking cessation. Quit smoking. Will try nicorrette gum continue APAP therapy, Awaiting PAP from [facility]. diuresis as tolerated continue oxygen 2L/pulse with activity, requesting POC for better portability outside of the home Needs overnight oximetry once on CPAP follow-up in 4-6 months Orders: Orders Overnight Pulse Oximetry Today Medications: New hkubosjqjby-mxtadhmli-eqsomjbw 100-62.5-25 mcg (Trelegy Ellipta) 1 inh inhalation DAILY 30 days 60 ea 11RF J44.9 - Chronic obstructive pulmonary disease, unspecified nicotine (polacrilex) (Nicorette) 2 mg buccal Q2H 30 days 100 ea 4RF Coding Level of Care Code Est Pt Level 4 (72227) Complex EM visit Add On G2211 Diagnoses Chronic allergic rhinitis J30.9 Chronic restrictive lung disease J98.4 Obstructive sleep apnea G47.33 Chronic obstructive pulmonary disease with acute exacerbation J44.1 COPD type: COPD with acute exacerbation CPT Codes Coding ([id number]) Time Spent (min) 18
[2024-05-04 23:07] VITALS: PULSE 88; O2SAT 95
== END 2024-05-04 13:27 | disposition home or self-care (01) ==
PROVIDERS: PCP Internal Medicine; Visit Provider Hospitalist
DX: J30.9 Allergic rhinitis, unspecified (principal); J98.4 Other disorders of lung; G47.33 Obstructive sleep apnea (adult) (pediatric); J44.1 Chronic obstructive pulmonary disease with (acute) exacerbation
CPT/HCPCS: 94618; 99214; G2211

== ENCOUNTER → 2024-05-04 12:43 | Outpatient (BNVA) | payer MEDICARE, SELFPAY | PROVIDERS: PCP Internal Medicine; Visit Provider Hospitalist | DX: J44.1 Chronic obstructive pulmonary disease with (acute) exacerbation (principal); J30.9 Allergic rhinitis, unspecified; J98.4 Other disorders of lung; G47.33 Obstructive sleep apnea (adult) (pediatric) | CPT/HCPCS: 94618; 99212 ==

== ENCOUNTER 2024-05-05 12:03 | Emergency (ER) | payer MEDICARE, SELFPAY ==
--- NOTE | ~2024-05-05 | US_ITS ---
EXAMINATION: US TRIPLEX LOWER EXTREMITY, LEFT CLINICAL INFORMATION: Left lower extremity edema and pain with wounds COMPARISON: 05/23/2023 TECHNIQUE: Color-flow triplex imaging with spectral analysis and compression Doppler were performed on the left lower extremity. FINDINGS: Respiratory variation, normal compression and augmented flow are noted throughout the left lower extremity. The visualized common femoral vein, superficial femoral vein, profunda femoral vein, popliteal vein and midcalf peroneal and posterior tibial venous segments show no evidence of deep venous thrombosis. There is no Montilla's cyst. US/US venous duplex LE LT IMPRESSION: No evidence of deep venous thrombosis involving the left lower extremity. Electronically signed by: Abdoul Ayers MD 05/05/2024 02:07 PM EDT RP
[2024-05-05 12:14] VITALS: BP 119/53; BP 143/72; PULSE 57; PULSE 84; RESP 18; TEMP 36.7; O2SAT 95; BMI 50.7
--- NOTE | 2024-05-05 12:37 | ED_ITS ---
HPI - General Adult General Chief complaint: General Medical Stated complaint: Milagro ROBB PER EMS Time Seen by Provider: 05/05/24 12:30 Source: patient Mode of arrival: ambulatory Limitations: no limitations History of Present Illness HPI narrative: This is a 63-year-old man with a past medical history asthma/COPD overlap, CAD, [id number] diabetes mellitus, hypertension, hyperlipidemia, chronic normocytic anemia, obstructive sleep apnea p.r.n. O2 q.h.s., opioid dependence on methadone who presents by EMS for evaluation of left lower extremity wound. He states that [facility] He states slowly increasing pain to left lower extremity. He states no fevers, myalgias or chills. He states no trauma or falls. He states no drainage of pus, but states noting clear fluid draining from his wounds. He states no paresthesias. He states no chest pain, back pain, abdominal pain or difficulty breathing. Related Data Home Medications ?Medication ?Instructions ?Recorded ?Confirmed bupropion HCl 150 mg tablet,12 hr 150 mg PO BID 02/12/21 04/22/23 sustained-release calcium carbonate 500 mg-vitamin 1 tab PO BID 02/12/21 04/22/23 D3 10 mcg (400 unit) tablet (Oyster Shell Calcium-Vitamin D3) carvedilol 25 mg tablet 25 mg PO BID 02/12/21 04/22/23 cholecalciferol (vitamin D3) 25 1,000 unit PO DAILY 02/12/21 04/22/23 mcg (1,000 unit) tablet clopidogrel 75 mg tablet 75 mg PO DAILY 02/12/21 04/22/23 fluticasone propionate 50 2 spray intranasal DAILY 02/12/21 04/22/23 mcg/actuation nasal spray,suspension furosemide 40 mg tablet 40 mg PO BID 02/12/21 04/22/23 hydralazine 100 mg tablet 100 mg PO QID 02/12/21 04/22/23 isosorbide mononitrate 30 mg 90 mg PO DAILY 02/12/21 04/22/23 tablet,extended release 24 hr losartan 100 mg tablet 150 mg PO DAILY 02/12/21 04/22/23 metformin 500 mg tablet 500 mg PO BIDWM 02/12/21 04/22/23 rosuvastatin 40 mg tablet 40 mg PO BEDTIME 02/12/21 04/22/23 trazodone 100 mg tablet 200 mg PO BEDTIME 10/16/21 04/22/23 albuterol sulfate 2.5 mg/3 mL 1 amp inhalation Q4-6H PRN 06/08/22 04/22/23 (0.083 %) solution for nebulization Shortness Of Breath clonidine HCl 0.1 mg tablet 1 tab PO DAILY 06/08/22 04/22/23 fluticasone 250 mcg-salmeterol 50 1 puff inhalation BID 06/08/22 04/22/23 mcg/dose blistr powdr for inhalation (Advair Diskus) tiotropium bromide 18 mcg capsule 1 cap inhalation DAILY 06/08/22 04/22/23 with inhalation device (Spiriva with HandiHaler) verapamil 240 mg tablet,extended 240 mg PO BEDTIME 06/08/22 04/22/23 release acetaminophen 650 mg 2 tab PO Q8H PRN Pain (Scale Score 06/10/22 04/22/23 tablet,extended release 1-3) nebulizers 10/25/22 Oxygen Home Use 10/31/22 furosemide 20 mg tablet 20 mg PO BID 04/15/23 04/22/23 loratadine 10 mg tablet 10 mg PO QAM 04/15/23 04/22/23 prazosin 5 mg capsule 5 mg PO BEDTIME 04/15/23 04/22/23 sertraline 25 mg tablet 25 mg PO QAM 04/15/23 04/22/23 amlodipine 5 mg tablet 5 mg PO BEDTIME 04/22/23 04/22/23 blood pressure kit-extra large #1 ea 04/21/24 blood sugar diagnostic (FreeStyle #10 ea 04/21/24 Lite Strips) blood-glucose meter (FreeStyle #1 ea 04/21/24 [place] Lite kit) dulaglutide 0.75 mg/0.5 mL mg subcut 04/21/24 subcutaneous pen injector (Trulicity) empagliflozin 25 mg tablet 10 mg PO DAILY 04/21/24 (Jardiance) ezetimibe 10 mg tablet 10 mg PO DAILY 04/21/24 lancets 33 gauge (TRUEplus Lancets) #100 ea 04/21/24 pantoprazole 40 mg tablet,delayed 40 mg PO DAILY 04/21/24 release psyllium husk (with sugar) 3 PO 04/21/24 gram/12 gram oral powder (Reguloid (psyllium husk-sucrose)) sodium fluoride 1.1 %-potassium PO 04/21/24 nitrate 5 % dental paste zinc oxide 40 % topical ointment topical 04/21/24 (Diaper Rash) fluticasone furoate 200 1 ea inhalation DAILY 05/04/24 mcg-vilanterol 25 mcg/dose inhalation powder (Breo Ellipta) Previous Rx's ?Medication ?Instructions ?Recorded albuterol sulfate 90 mcg/actuation 2 puff inhalation Q4H PRN Wheezing 10/16/21 aerosol inhaler (ProAir HFA) 30 days #8.5 grams xvntgrdfos-gleujwilpokum-mlwgvwii 1 cap PO Q8H PRN headache #10 caps 09/01/22 50 mg-300 mg-40 mg capsule (Fioricet) spironolactone 25 mg tablet 25 mg PO DAILY #30 tabs 04/22/23 montelukast 10 mg tablet 10 mg PO BEDTIME 30 days #30 tabs 07/07/23 (Singulair) gabapentin 300 mg capsule 300 mg PO TID 30 days #90 caps 12/22/23 bisacodyl 5 mg tablet,delayed 10 mg (2 x 5 mg) PO BEDTIME 04/21/24 release (Dulcolax (bisacodyl)) constipation #60 tabs docusate sodium 100 mg capsule 200 mg (2 x 100 mg) PO DAILY #60 04/21/24 caps polyethylene glycol 3350 17 17 g PO DAILY PRN constipation 04/21/24 gram/dose oral powder (Miralax) #510 grams fluticasone fur. 100 mcg-umeclid 1 inh inhalation DAILY 30 days #60 05/04/24 62.5 mcg-vilant 25 mcg ea inhalat.powder (Trelegy Ellipta) nicotine (polacrilex) 2 mg gum 2 mg buccal Q2H 30 days #100 ea 05/04/24 (Nicorette) clindamycin HCl 300 mg capsule 300 mg PO Q6H 7 days #28 caps 05/05/24 Allergies Allergy/AdvReac Type Severity Reaction Status Date / Time crab [CRAB] Allergy Unknown ANAPHYLAXIS Verified 05/05/24 12:16 lisinopril [LISINOPRIL] Allergy Unknown cough Verified 05/04/24 13:01 Penicillins [PCN] Allergy Unknown RASH Verified 05/04/24 13:01 Sulfa (Sulfonamide Allergy Unknown RASH Verified 05/04/24 13:01 Antibiotics) [SULFA (SULFONAMIDE ANTIBIOTICS)] Review of Systems Review of Systems: ROS as per HPI [facility] Past Medical History Medical History Cellulitis of left lower extremity Osteopenia (~2016) PAD (peripheral artery disease) Heart failure with preserved ejection fraction MELISSA (acute kidney injury) Heroin abuse Cocaine abuse Acute on chronic right heart failure Chronic restrictive lung disease Pulmonary nodule Chronic allergic rhinitis Asthma Streptococcal bacteremia COPD (chronic obstructive pulmonary disease) Normocytic anemia Coronary artery disease Obstructive sleep apnea Smoker Congestive heart failure Opioid abuse Diabetes Hyperlipidemia Hypertension Obesity Surgical History History of orchiectomy, unilateral History of colonoscopy History of hernia repair Family History Family History Father No problems noted. Mother No problems noted. Social History Social History Household Members: None Housing: Condominium Do you presently have visiting nurse or other home services: Yes Alcohol intake: never Comment: refuses alarm Patient Tobacco Use Status: Current everyday Tobacco user Tobacco use type: Cigarette Cigarette Packs Per Day: 1 Cigarettes Per Day: 20.0 Smoked in Last 30 Days: Yes Use of substances other than those prescribed or required for medical reasons: No Substance Use Type: Opiates Advance Directives: No Advance Directives Information Provided: Yes service: No Current occupational status: disabled Current occupation: [employer]t handed Physical Exam ED Vital Signs: Vital Signs - 24 hr 05/05/24 12:14 Temperature 98.1 F Pulse Rate 57 Respiratory Rate 18 Blood Pressure 119/53 L Pulse Oximetry 95 Oxygen Delivery Method Room Air BMI result Body Mass Index 50.7 Gen: NAD, AOx3 HEENT: NCAT, EOMI, normal conjunctiva CV: RRR, 2+ bilateral DP/PT pulses Pulm: CTAB, no increased work of breathing GI: Soft, NTND Neuro: Grossly non focal, sensation intact to light touch in the bilateral lower extremities MSK: Bilateral lower extremity edema, irregular shaped superficial wounds with red base with minimal erythema, few serous filled bullae, no purpura, mild tenderness to palpation to the left lower extremity, no tenderness to palpation to the right lower extremity Medications Administered Discontinued Medications Generic Name Dose Route Start Last Admin Trade Name Lilly PRN Reason Stop Dose Admin Ketorolac Tromethamine 30 mg 05/05/24 12:36 05/05/24 12:56 Ketorolac Tromethamine 30 Mg/Ml Vial IM 05/05/24 12:37 30 mg ONCE ONE Administration Medical Decision Making Medical Decision Making [facility] Narrative: Differential diagnosis includes, but is not limited to cellulitis, DVT, chronic venous stasis ulcers. Patient is afebrile and hemodynamically stable on room air. The affected left lower extremity is neurovascularly intact. Exam is overall benign and reassuring though with minimal erythema consistent with cellulitis. Given chronicity of symptoms in well-appearing patient without fever or systemic symptoms I have very low clinical suspicion for systemic illness such as sepsis or necrotizing fasciitis. I reviewed radiology impression as below, which is negative for ultrasound in the left leg. On re-examination, patient is well-appearing and in no acute distress. ?I discussed patient's need to each O2 as wound care clinic in his discussed increasing the frequency of his appointments. There is a component of mild cellulitis and no treated as such, but do suspect the patient he uses wounds slowly and poorly neck component of his symptoms are chronic in nature. There is no indication for further emergent evaluation in this otherwise well- appearing patient as above. ?Patient is provided written and verbal instructions, educational materials, recommendations for outpatient follow-up, prescription for clindamycin, strict return precautions and teach back is performed. ?Patient states understanding and agreement with plan of care. ?Patient is discharged home in stable and improved condition. Admission/Observation Consideration of admission/observation: Escalation of care including admission/o bservation considered I considered admission, but medical evaluation is reassuring there is no indication for inpatient hospitalization at this time. Radiology Impression Discussion of test interpretation with radiology: I have reviewed the radiologist's reading. Radiologist Impression: US/US venous duplex LE LT IMPRESSION: No evidence of deep venous thrombosis involving the left lower extremity. Electronically signed by: Abdoul Ayers MD 05/05/2024 02:07 PM EDT Dictated By: Abdoul Ayers MD Signed By: <Electronically signed by Abdoul Ayers MD in OV> 05/05/24 1407 Discharge Plan Discharge Clinical Impression: Cellulitis of left leg Patient Disposition: Home, Self-Care Instructions: Cellulitis (ED) Additional Instructions: You were evaluated in the emergency room. Your ultrasound showed no blood clot in your leg You are given a prescription for antibiotics. Please start taking today. Please take as directed and until completed. Please call your wound care clinic today to discuss increasing your frequency of appointments with them. Please return to the emergency with any new or worsening symptoms including but not limited to fever, increasing pain/swelling/redness to your leg. Prescriptions: New clindamycin HCl 300 mg capsule 300 mg PO Q6H 7 Days Qty: 28 0RF No Action furosemide 40 mg tablet 40 mg PO BID metformin 500 mg tablet 500 mg PO BIDWM bupropion HCl 150 mg tablet sustained-release 12 hr 150 mg PO BID carvedilol 25 mg tablet 25 mg PO BID isosorbide mononitrate 30 mg tablet extended release 24 hr 90 mg PO DAILY clopidogrel 75 mg tablet 75 mg PO DAILY hydralazine 100 mg tablet 100 mg PO QID losartan 100 mg tablet 150 mg PO DAILY fluticasone propionate 50 mcg/actuation spray,suspension 2 spray intranasal DAILY rosuvastatin 40 mg tablet 40 mg PO BEDTIME cholecalciferol (vitamin D3) 25 mcg (1,000 unit) tablet 1,000 unit PO DAILY calcium carbonate-vitamin D3 [Oyster Shell Calcium-Vit D3] 500 mg(1,250mg) - 400 unit tablet 1 tab PO BID fluticasone propion-salmeterol [Advair Diskus] 250-50 mcg/dose blister with device 1 puff INHALATION BID clonidine HCl 0.1 mg tablet 1 tab PO DAILY albuterol sulfate 2.5 mg /3 mL (0.083 %) solution for nebulization 1 amp inhalation Q4-6H PRN (Reason: Shortness Of Breath) verapamil 240 mg tablet extended release 240 mg PO BEDTIME Spiriva with HandiHaler 18 mcg capsule, w/inhalation device 1 cap inhalation DAILY acetaminophen 650 mg tablet extended release 2 tab PO Q8H PRN (Reason: Pain (Scale Score 1-3)) alahodrznl-pwieugisjrizt-bapm [Fioricet] 50-300-40 mg capsule 1 cap PO Q8H PRN (Reason: headache) Qty: 10 0RF prazosin 5 mg capsule 5 mg PO BEDTIME sertraline 25 mg tablet 25 mg PO QAM furosemide 20 mg Tablet 20 mg PO BID loratadine 10 mg tablet 10 mg PO QAM spironolactone 25 mg tablet 25 mg PO DAILY Qty: 30 0RF amlodipine 5 mg Tablet 5 mg PO BEDTIME trazodone 100 mg tablet 200 mg PO BEDTIME albuterol sulfate [ProAir HFA] 90 mcg/actuation HFA aerosol inhaler 2 puff inhalation Q4H PRN (Reason: Wheezing) 30 Days Qty: 8.5 11RF (DME) Oxygen Home Use Kit See Rx Instructions .ROUTE Rx Instructions: As directed (DME) nebulizers Misc See Rx Instructions .ROUTE Rx Instructions: As directed montelukast [Singulair] 10 mg tablet 10 mg PO BEDTIME 30 Days Qty: 30 11RF gabapentin 300 mg capsule 300 mg PO TID 30 Days Qty: 90 6RF Reguloid (psyllium husk-sucro) 3 gram/12 gram powder PO Trulicity 0.75 mg/0.5 mL pen injector subcut (DME) lancets [TRUEplus Lancets] 33 gauge misc See Rx Instructions .ROUTE BID Qty: 100 Rx Instructions: As directed pantoprazole 40 mg tablet,delayed release (DR/EC) 40 mg PO DAILY zinc oxide [Diaper Rash] 40 % ointment topical sodium fluoride-pot nitrate 1.1-5 % paste PO (DME) FreeStyle Lite Strips Strip See Rx Instructions .ROUTE QID Qty: 10 Rx Instructions: As directed ezetimibe 10 mg tablet 10 mg PO DAILY (DME) blood pressure kit-extra large Kit See Rx Instructions .ROUTE DIRECTED Qty: 1 Rx Instructions: As directed (DME) blood-glucose meter [FreeStyle [place] Lite] Kit See Rx Instructions .ROUTE BID Qty: 1 Rx Instructions: As directed Jardiance 25 mg tablet 10 mg PO DAILY polyethylene glycol 3350 [Miralax] 17 gram/dose powder 17 g PO DAILY PRN (Reason: constipation) Qty: 510 0RF docusate sodium 100 mg capsule 200 mg PO DAILY Qty: 60 2RF bisacodyl [Dulcolax (bisacodyl)] 5 mg tablet,delayed release (DR/EC) 10 mg PO BEDTIME Qty: 60 2RF fluticasone furoate-vilanterol [Breo Ellipta] 200-25 mcg/dose blister with device 1 ea inhalation DAILY Trelegy Ellipta 100-62.5-25 mcg blister with device 1 inh inhalation DAILY 30 Days Qty: 60 11RF nicotine (polacrilex) [Nicorette] 2 mg gum 2 mg buccal Q2H 30 Days Qty: 100 4RF Print Language: Albanian
[2024-05-05] MEDS: Ketorolac Tromethamine 30 MG/ML VIAL IM (12:56)
[2024-05-05 14:36] VITALS: BP 132/48; PULSE 74; RESP 16; TEMP 36.8; O2SAT 98
[2024-05-05 14:49] VITALS: BP 132/48; PULSE 74; RESP 16; TEMP 36.8; O2SAT 98
== END 2024-05-05 14:53 | disposition home or self-care (01) ==
PROVIDERS: Emergency Provider Emergency Medicine; PCP Internal Medicine
DX: L03.116 Cellulitis of left lower limb (principal); M79.604 Pain in right leg; I11.0 Hypertensive heart disease with heart failure; I50.20 Unspecified systolic (congestive) heart failure; Z79.899 Other long term (current) drug therapy
CPT/HCPCS: 93971; 96372; 99284; J1885

== ENCOUNTER 2024-05-30 09:07 | Emergency (ER) | payer MEDICARE, SELFPAY ==
--- NOTE | ~2024-05-30 | XR_ITS ---
EXAMINATION: XR CHEST CLINICAL INFORMATION: Shortness of breath, left-sided chest pain. COMPARISON: Chest radiograph 09/01/2022. TECHNIQUE: 2 views of the chest were obtained. FINDINGS: Stable prominence of the cardiomediastinal silhouette. Increased central bronchovascular markings, and increased streaky opacities projecting over the region of the cardiac region. No dense consolidation. No pleural effusion. No pneumothorax. No acute osseous findings. XR/XR chest 2V IMPRESSION: 1. Increased bronchovascular markings that should be related with small airways disease and pulmonary venous congestion. No dense consolidation or pleural effusion. 2. Increased streaky opacities in the retrocardiac region suggesting subsegmental atelectasis, less likely infectious/inflammatory infiltrate. Electronically signed by: Chanel Fernandez MD 05/30/2024 10:21 AM EDT
--- NOTE | 2024-05-30 09:10 | ECG_ITS ---
Test Reason : CHEST PAIN Blood Pressure : / mmHG Vent. Rate : 058 BPM Atrial Rate : 058 BPM P-R Int : 162 ms QRS Dur : 142 ms QT Int : 478 ms P-R-T Axes : 054 101 029 degrees QTc Int : 469 ms Sinus bradycardia with sinus arrhythmia Right bundle branch block Abnormal ECG When compared with ECG of 01-SEP-2022 12:09, No significant change was found Referred By: Generic ED Physician Electronically Signed By:MECCA PAGE
[2024-05-30 09:14] VITALS: BP 132/62; BP 145/75; PULSE 60; RESP 18; TEMP 37.1; O2SAT 94; O2SAT 99; BMI 50.2
[2024-05-30 09:20] VITALS: BP 132/62; PULSE 60; RESP 18; TEMP 37.1; O2SAT 94
--- NOTE | 2024-05-30 09:29 | ED.CHESTPAIN ---
HPI - Chest Pain General Chief Complaint: Chest Pain Stated Complaint: CP SOB Time Seen by Provider: 05/30/24 09:28 Source: patient, EMS, RN notes reviewed, old records reviewed and official court interpreter (french) Mode of arrival: EMS Limitations: language barrier (french speaking) History of Present Illness ED Provider: DAMIAN SOSA PA-C HPI narrative: 63 year old french speaking male with pmhx significant for morbid obesity, ABDOULAYE on CPAP, T2DM, HTN, HFpEF, asthma/COPD, diverticulitis w/ strep bacteremia in 2020, opioid dependence presents to the ED today via EMS from home for reported evaluation of chest pain and shortness of breath which began this morning after waking and has completely resolved on arrival to ED without intervention. He was not administered anything via EMS en route to ED. Denies shortness of breath or chest pain at present. Denies cough or sputum production. Does not have any complaints in ED. Denies known sick contacts. Denies fever, chills, sore throat, ROSALES, orthopnea, hemoptysis. conference interpreter utilized throughout visit to communicate with patient. Related Data Home Medications ?Medication ?Instructions ?Recorded ?Confirmed bupropion HCl 150 mg tablet,12 hr 150 mg PO BID 02/12/21 04/22/23 sustained-release calcium carbonate 500 mg-vitamin 1 tab PO BID 02/12/21 04/22/23 D3 10 mcg (400 unit) tablet (Oyster Shell Calcium-Vitamin D3) carvedilol 25 mg tablet 25 mg PO BID 02/12/21 04/22/23 cholecalciferol (vitamin D3) 25 1,000 unit PO DAILY 02/12/21 04/22/23 mcg (1,000 unit) tablet clopidogrel 75 mg tablet 75 mg PO DAILY 02/12/21 04/22/23 fluticasone propionate 50 2 spray intranasal DAILY 02/12/21 04/22/23 mcg/actuation nasal spray,suspension furosemide 40 mg tablet 40 mg PO BID 02/12/21 04/22/23 hydralazine 100 mg tablet 100 mg PO QID 02/12/21 04/22/23 isosorbide mononitrate 30 mg 90 mg PO DAILY 02/12/21 04/22/23 tablet,extended release 24 hr losartan 100 mg tablet 150 mg PO DAILY 02/12/21 04/22/23 metformin 500 mg tablet 500 mg PO BIDWM 02/12/21 04/22/23 rosuvastatin 40 mg tablet 40 mg PO BEDTIME 02/12/21 04/22/23 trazodone 100 mg tablet 200 mg PO BEDTIME 10/16/21 04/22/23 albuterol sulfate 2.5 mg/3 mL 1 amp inhalation Q4-6H PRN 06/08/22 04/22/23 (0.083 %) solution for nebulization Shortness Of Breath clonidine HCl 0.1 mg tablet 1 tab PO DAILY 06/08/22 04/22/23 fluticasone 250 mcg-salmeterol 50 1 puff inhalation BID 06/08/22 04/22/23 mcg/dose blistr powdr for inhalation (Advair Diskus) tiotropium bromide 18 mcg capsule 1 cap inhalation DAILY 06/08/22 04/22/23 with inhalation device (Spiriva with HandiHaler) verapamil 240 mg tablet,extended 240 mg PO BEDTIME 06/08/22 04/22/23 release acetaminophen 650 mg 2 tab PO Q8H PRN Pain (Scale Score 06/10/22 04/22/23 tablet,extended release 1-3) nebulizers 10/25/22 Oxygen Home Use 10/31/22 furosemide 20 mg tablet 20 mg PO BID 04/15/23 04/22/23 loratadine 10 mg tablet 10 mg PO QAM 04/15/23 04/22/23 prazosin 5 mg capsule 5 mg PO BEDTIME 04/15/23 04/22/23 sertraline 25 mg tablet 25 mg PO QAM 04/15/23 04/22/23 amlodipine 5 mg tablet 5 mg PO BEDTIME 04/22/23 04/22/23 blood pressure kit-extra large #1 ea 04/21/24 blood sugar diagnostic (FreeStyle #10 ea 04/21/24 Lite Strips) blood-glucose meter (FreeStyle #1 ea 04/21/24 [place] Lite kit) dulaglutide 0.75 mg/0.5 mL mg subcut 04/21/24 subcutaneous pen injector (Trulicity) empagliflozin 25 mg tablet 10 mg PO DAILY 04/21/24 (Jardiance) ezetimibe 10 mg tablet 10 mg PO DAILY 04/21/24 lancets 33 gauge (TRUEplus Lancets) #100 ea 04/21/24 pantoprazole 40 mg tablet,delayed 40 mg PO DAILY 04/21/24 release psyllium husk (with sugar) 3 PO 04/21/24 gram/12 gram oral powder (Reguloid (psyllium husk-sucrose)) sodium fluoride 1.1 %-potassium PO 04/21/24 nitrate 5 % dental paste zinc oxide 40 % topical ointment topical 04/21/24 (Diaper Rash) fluticasone furoate 200 1 ea inhalation DAILY 05/04/24 mcg-vilanterol 25 mcg/dose inhalation powder (Breo Ellipta) Previous Rx's ?Medication ?Instructions ?Recorded albuterol sulfate 90 mcg/actuation 2 puff inhalation Q4H PRN Wheezing 10/16/21 aerosol inhaler (ProAir HFA) 30 days #8.5 grams vlkwzmzzuw-umlijppnantuk-gvxxtxmw 1 cap PO Q8H PRN headache #10 caps 09/01/22 50 mg-300 mg-40 mg capsule (Fioricet) spironolactone 25 mg tablet 25 mg PO DAILY #30 tabs 04/22/23 montelukast 10 mg tablet 10 mg PO BEDTIME 30 days #30 tabs 07/07/23 (Singulair) gabapentin 300 mg capsule 300 mg PO TID 30 days #90 caps 12/22/23 bisacodyl 5 mg tablet,delayed 10 mg (2 x 5 mg) PO BEDTIME 04/21/24 release (Dulcolax (bisacodyl)) constipation #60 tabs docusate sodium 100 mg capsule 200 mg (2 x 100 mg) PO DAILY #60 04/21/24 caps polyethylene glycol 3350 17 17 g PO DAILY PRN constipation 04/21/24 gram/dose oral powder (Miralax) #510 grams fluticasone fur. 100 mcg-umeclid 1 inh inhalation DAILY 30 days #60 05/04/24 62.5 mcg-vilant 25 mcg ea inhalat.powder (Trelegy Ellipta) nicotine (polacrilex) 2 mg gum 2 mg buccal Q2H 30 days #100 ea 05/04/24 (Nicorette) clindamycin HCl 300 mg capsule 300 mg PO Q6H 7 days #28 caps 05/05/24 Allergies Allergy/AdvReac Type Severity Reaction Status Date / Time crab [CRAB] Allergy Unknown ANAPHYLAXIS Verified 05/05/24 12:16 lisinopril [LISINOPRIL] Allergy Unknown cough Verified 05/04/24 13:01 Penicillins [PCN] Allergy Unknown RASH Verified 05/04/24 13:01 Sulfa (Sulfonamide Allergy Unknown RASH Verified 05/04/24 13:01 Antibiotics) [SULFA (SULFONAMIDE ANTIBIOTICS)] aspirin [ASA] Allergy Unknown Verified 05/30/24 09:17 Review of Systems Review of Systems: Constitutional: No fever, chills, fatigue, night sweats, weight changes ENT/Mouth: No ear pain, hearing loss, nasal congestion, sinus pain, rhinorrhea, sore throat Eyes: No eye pain, swelling, redness, vision changes, discharge Cardio: No palpitations, ROSALES, orthopnea, peripheral edema, chest pain Pulm: No cough, sputum, wheezing, dyspnea, hemoptysis, shortness of breath GI: No nausea, vomiting, hematemesis, abdominal pain, diarrhea, constipation, hematochezia, melena : No irregular bleeding, dysuria, frequency, urgency, hesitancy, hematuria, flank pain, urinary flow changes, urinary incontinence or retention MSK: No back pain, neck pain, joint pain, myalgias Skin: No lesions, rashes Neuro: No weakness, numbness, paresthesias, LOC, dizziness, headache Psych: No anxiety/panic, depression, SI/HI, AH/VH All other systems reviewed and are negative. [facility] Past Medical History Attestation statement: The following information was validated with the patient. Source: old records reviewed and nursing notes reviewed Medical History Cellulitis of left lower extremity Osteopenia (~2016) PAD (peripheral artery disease) Heart failure with preserved ejection fraction MELISSA (acute kidney injury) Heroin abuse Cocaine abuse Acute on chronic right heart failure Chronic restrictive lung disease Pulmonary nodule Chronic allergic rhinitis Asthma Streptococcal bacteremia COPD (chronic obstructive pulmonary disease) Normocytic anemia Coronary artery disease Obstructive sleep apnea Smoker Congestive heart failure Opioid abuse Diabetes Hyperlipidemia Hypertension Obesity Surgical History History of orchiectomy, unilateral History of colonoscopy History of hernia repair Family History Family History Father No problems noted. Mother No problems noted. Social History Social History Household Members: None Housing: Condominium Do you presently have visiting nurse or other home services: Yes Alcohol intake: never Comment: refuses alarm Patient Tobacco Use Status: Current everyday Tobacco user Tobacco use type: Cigarette Cigarette Packs Per Day: 1 Cigarettes Per Day: 20.0 Smoked in Last 30 Days: Yes Use of substances other than those prescribed or required for medical reasons: No Substance Use Type: Opiates Advance Directives: No Advance Directives Information Provided: No Do you have a plan to hurt others: No Plan service: No Current occupational status: disabled Current occupation: Rt handed Physical Exam Vital Signs: Vital Signs: Last Vital Signs Temp 98.4 F 05/30/24 11:49 Pulse 59 05/30/24 11:49 Resp 20 05/30/24 11:49 BP 159/87 H 05/30/24 11:49 Pulse Ox 94 05/30/24 11:49 O2 Del Method Room Air 05/30/24 11:49 BMI result Body Mass Index 50.2 patient hypertensive to 159/87, vitals otherwise wnl General: Well appearing, in no acute distress. Skin: Warm, dry, intact. No rashes or lesions. Head: Normocephalic, atraumatic. EENT: Hearing is intact b/l. Conjunctiva clear. PERRLA. Moist mucous membranes.? Neck: Supple without LAD? Cardiac: Chest wall symmetric. RRR. Lungs: Normal respiratory effort without accessory muscle use. CTA bilaterally. No rales, rhonchi, or wheezes.? Back: No midline spinous or paraspinal tenderness. No step off deformity. Ext: Upper and lower extremities atraumatic, without tenderness, deformity, swelling or erythema. no peripheral edema. Neuro: AOx3. Normal speech. Ambulating with steady gait. Psych: Appropriate mood and affect. Responds appropriately to questions. Course Course Course Narrative: 1140 -- CBC showing chronic microcytic anemia, above transfusion threshold. No leukocytosis or left shift. VBG with chronic metabolic alkalosis secondary to COPD. Chemistry without acute electrolyte abnormality requiring intervention. bun wnl at 82, not consistent with CHF. Troponin 3.4. CXR showing findings consistent with chronic lung disease, no evidence of PNA, effusion, or fluid overload. EKG showing sinus bradycardia with sinus arrhythmia at a rate of 58 bpm, RBBB present on prior EKGs, no acute ischemic changes or st elevations. > patient stating that he would like to leave the ED as he feels back to baseline. Given timing of chest pain/ presentation to ED, I informed patient of the importance of obtaining a repeat troponin to assess for NSTEMI. Patient declines at this time and would like to leave the ED. patient to sign out AMA. Medications Administered Discontinued Medications Generic Name Dose Route Start Last Admin Trade Name Freq PRN Reason Stop Dose Admin Albuterol/Ipratropium 3 ml 05/30/24 10:38 05/30/24 10:43 Albuterol/Iprat 2.5/0.5mg 3 Ml Ampul.Neb INHALE 05/30/24 10:39 3 ml ONCE ONE Administration Medical Decision Making Medical Decision Making [facility] Narrative: 63 year old french speaking male with pmhx significant for morbid obesity, ABDOULAYE on CPAP, T2DM, HTN, HFpEF, asthma/COPD, diverticulitis w/ strep bacteremia in 2020, opioid dependence presents to the ED today via EMS from home for reported evaluation of chest pain and shortness of breath which began this morning after waking and has completely resolved on arrival to ED without intervention. Vital signs stable. He is non toxic appearing and in NAD. RRR. Lungs are clear. No signs of respiratory distress, no tripoding, no increaed effort of breathing. Exam without evidence of volume overload. EKG without signs of active ischemia. HEART score: 4.? Given the timing of pain to ED presentation, plan to send delta troponin to evaluate for NSTEMI. Differential also includes asthma/ copd exacerbation, arrhythmia, CHF, pneumonia, bronchitis, viral syndrome. Presentation not consistent with acute PE, pneumothorax, thoracic aortic dissection, cardiac effusion or tamponade. Plan: labs, troponin, EKG, CXR, reassessment Differential Diagnosis Differential Diagnoses: The differential diagnosis associated with the presentation includes as above. Admission/Observation Consideration of admission/observation: Escalation of care including admission/observation considered Admission considered on presentation. Lab Data [facility] Lab Attestation statement: I reviewed the patient's lab results. as above. 05/30/24 10:26 05/30/24 10:26 Labs: Lab Results 05/30/24 05/30/24 Range/Units 10:26 10:33 WBC 8.1 (4.8-10.8) X10*3/uL RBC 5.22 (4.60-5.80) X10*6/uL Hgb 12.6 L (14.0-18.0) g/dl Hct 41.1 L (42.0-52.0) % MCV 78.7 L (80.0-98.0) fL MCH 24.1 L (27.0-33.0) pg MCHC 30.7 L (31.0-36.0) g/dl RDW 16.2 H (11.0-16.0) % Plt Count 253 (160-400) X10*3/uL MPV 9.9 (9.4-12.4) fL Immature Gran % (Auto) 0.4 (0.0-0.4) % Neut % (Auto) 73.2 H (45-73) % Lymph % (Auto) 10.6 L (20-40) % [place] % (Auto) 5.5 (2-11) % Eos % (Auto) 9.9 H (0-4) % Baso % (Auto) 0.4 (0-2) % Lymph # (Auto) 0.9 L (1.2-4.9) X10*3/uL [place] # (Auto) 0.5 (0.1-1.2) X10*3/uL Eos # (Auto) 0.8 H (0.0-0.4) X10*3/uL Baso # (Auto) 0.0 (0.0-0.2) X10*3/uL Abs Immat Gran (auto) 0.03 (0.00-0.03) X10*3/uL Absolute Neuts (auto) 6.0 (2.0-8.3) x10*3/uL Absolute Nucleated RBC 0.000 (0.0-0.012) X10*3/uL Nucleated RBC % (auto) 0.0 (0.0-0.2) /100WBC PT 10.2 L (10.9-12.4) SEC INR 0.9 (0.9-1.1) VBG pH 7.37 (7.32-7.43) VBG pCO2 57 mmHg VBG pO2 45 mmHg VBG HCO3 33 H (22-26) mmol/L VBG O2 Saturation 71.0 % VBG Base Excess 6.8 mmol/L Sodium 143 (135-145) mmol/L Potassium 4.1 (3.3-5.1) mmol/L Chloride 104 (96-108) mmol/L Carbon Dioxide 30 H (22-29) mmol/L Anion Gap 13 (12-20) BUN 12 (9-16) mg/dL Creatinine 1.10 (0.5-1.4) mg/dL Estim Creat Clear Calc 89.6 Estimated GFR > 60 Random Glucose 113 (60-115) mg/dL Calcium 10.1 (8.4-10.2) mg/dL Troponin I High Sens 3.4 D (<3.5-35.0) ng/L B-Natriuretic Peptide 82 (<100) pg/mL Independent Interpretation I performed an independent interpretation of an: EKG and Plain X-Ray Interpretation: EKG showing sinus bradycardia with sinus arrhythmia at a rate of 58 beats per minute, QT 478, QTC 469, right bundle-branch block evident on old EKGs. CXR without effusion, agree with radiologist's interpretation. Radiology Impression Discussion of test interpretation with radiology: I have reviewed the radiologist's reading. Radiologist Impression: EXAMINATION: XR CHEST CLINICAL INFORMATION: Shortness of breath, left-sided chest pain. COMPARISON: Chest radiograph 09/01/2022. TECHNIQUE: 2 views of the chest were obtained. FINDINGS: Stable prominence of the cardiomediastinal silhouette. Increased central bronchovascular markings, and increased streaky opacities projecting over the region of the cardiac region. No dense consolidation. No pleural effusion. No pneumothorax. No acute osseous findings. XR/XR chest 2V IMPRESSION: 1. Increased bronchovascular markings that should be related with small airways disease and pulmonary venous congestion. No dense consolidation or pleural effusion. 2. Increased streaky opacities in the retrocardiac region suggesting subsegmental atelectasis, less likely infectious/inflammatory infiltrate. Electronically signed by: Chanel Fernandez MD 05/30/2024 10:21 AM EDT Independent Historian Clinical information obtained from an independent historian. History obtained from or confirmed by: EMS External Record Review External record reviewed: Inpatient record, Office record, Outpatient record, Prior outpatient labs, Prior outpatient radiology, Primary care record and Outside ED record Chronic Conditions Patient?s care impacted by: Other (CHF, asthma/COPD) Social Determinants Patient?s care significantly limited by Social Determinants of Health including: Other Social Determinant of Health Critical Care Time Critical Care Time Critical Care Time: No Discharge Plan Discharge Clinical Impression: Atypical chest pain Patient Disposition: Left Against Medical Advice Instructions: Chest Pain (ED) Additional Instructions: Your blood work today is reassuring however you are requesting to leave before we repeat your cardiac enzyme. Please follow up with PCP. As discussed, return with new or worsening symptoms. In the case of an emergency call 911. Prescriptions: No Action furosemide 40 mg tablet 40 mg PO BID metformin 500 mg tablet 500 mg PO BIDWM bupropion HCl 150 mg tablet sustained-release 12 hr 150 mg PO BID carvedilol 25 mg tablet 25 mg PO BID isosorbide mononitrate 30 mg tablet extended release 24 hr 90 mg PO DAILY clopidogrel 75 mg tablet 75 mg PO DAILY hydralazine 100 mg tablet 100 mg PO QID losartan 100 mg tablet 150 mg PO DAILY fluticasone propionate 50 mcg/actuation spray,suspension 2 spray intranasal DAILY rosuvastatin 40 mg tablet 40 mg PO BEDTIME cholecalciferol (vitamin D3) 25 mcg (1,000 unit) tablet 1,000 unit PO DAILY calcium carbonate-vitamin D3 [Oyster Shell Calcium-Vit D3] 500 mg(1,250mg) -400 unit tablet 1 tab PO BID fluticasone propion-salmeterol [Advair Diskus] 250-50 mcg/dose blister with device 1 puff INHALATION BID clonidine HCl 0.1 mg tablet 1 tab PO DAILY albuterol sulfate 2.5 mg /3 mL (0.083 %) solution for nebulization 1 amp inhalation Q4-6H PRN (Reason: Shortness Of Breath) verapamil 240 mg tablet extended release 240 mg PO BEDTIME Spiriva with HandiHaler 18 mcg capsule, w/inhalation device 1 cap inhalation DAILY acetaminophen 650 mg tablet extended release 2 tab PO Q8H PRN (Reason: Pain (Scale Score 1-3)) nrdudwqozw-iskfpurkozefv-ujsq [Fioricet] 50-300-40 mg capsule 1 cap PO Q8H PRN (Reason: headache) Qty: 10 0RF prazosin 5 mg capsule 5 mg PO BEDTIME sertraline 25 mg tablet 25 mg PO QAM furosemide 20 mg Tablet 20 mg PO BID loratadine 10 mg tablet 10 mg PO QAM spironolactone 25 mg tablet 25 mg PO DAILY Qty: 30 0RF amlodipine 5 mg Tablet 5 mg PO BEDTIME clindamycin HCl 300 mg capsule 300 mg PO Q6H 7 Days Qty: 28 0RF trazodone 100 mg tablet 200 mg PO BEDTIME albuterol sulfate [ProAir HFA] 90 mcg/actuation HFA aerosol inhaler 2 puff inhalation Q4H PRN (Reason: Wheezing) 30 Days Qty: 8.5 11RF (DME) Oxygen Home Use Kit See Rx Instructions .ROUTE Rx Instructions: As directed (DME) nebulizers Misc See Rx Instructions .ROUTE Rx Instructions: As directed montelukast [Singulair] 10 mg tablet 10 mg PO BEDTIME 30 Days Qty: 30 11RF gabapentin 300 mg capsule 300 mg PO TID 30 Days Qty: 90 6RF Reguloid (psyllium husk-sucro) 3 gram/12 gram powder PO Trulicity 0.75 mg/0.5 mL pen injector subcut (DME) lancets [TRUEplus Lancets] 33 gauge misc See Rx Instructions .ROUTE BID Qty: 100 Rx Instructions: As directed pantoprazole 40 mg tablet,delayed release (DR/EC) 40 mg PO DAILY zinc oxide [Diaper Rash] 40 % ointment topical sodium fluoride-pot nitrate 1.1-5 % paste PO (DME) FreeStyle Lite Strips Strip See Rx Instructions .ROUTE QID Qty: 10 Rx Instructions: As directed ezetimibe 10 mg tablet 10 mg PO DAILY (DME) blood pressure kit-extra large Kit See Rx Instructions .ROUTE DIRECTED Qty: 1 Rx Instructions: As directed (DME) blood-glucose meter [FreeStyle [place] Lite] Kit See Rx Instructions .ROUTE BID Qty: 1 Rx Instructions: As directed Jardiance 25 mg tablet 10 mg PO DAILY polyethylene glycol 3350 [Miralax] 17 gram/dose powder 17 g PO DAILY PRN (Reason: constipation) Qty: 510 0RF docusate sodium 100 mg capsule 200 mg PO DAILY Qty: 60 2RF bisacodyl [Dulcolax (bisacodyl)] 5 mg tablet,delayed release (DR/EC) 10 mg PO BEDTIME Qty: 60 2RF fluticasone furoate-vilanterol [Breo Ellipta] 200-25 mcg/dose blister with device 1 ea inhalation DAILY Trelegy Ellipta 100-62.5-25 mcg blister with device 1 inh inhalation DAILY 30 Days Qty: 60 11RF nicotine (polacrilex) [Nicorette] 2 mg gum 2 mg buccal Q2H 30 Days Qty: 100 4RF Referrals: Sasha Tipton MD [Primary Care Provider] - Stand Alone Forms: Against Medical Advice Interventions: ED Discharge Assessment Last Done: 05/30/24 11:49 Discharge Date/Time: 05/30/24 11:54 Print Language: Greek
[2024-05-30 10:32] LABS: MANUAL DIFF FLAG NO
[2024-05-30 10:34] LABS: Basophils Percent Auto 0.4 % (0-2); Eosinophils Absolute Auto 0.8 X10*3/uL (0.0-0.4); Eosinophils Percent Auto 9.9 % (0-4); Hematocrit 41.1 % (42.0-52.0); Hemoglobin 12.6 g/dl (14.0-18.0); Imm Gran Abs Auto 0.03 X10*3/uL (0.00-0.03); Imm Gran Pct Auto 0.4 % (0.0-0.4); Lymphocytes Absolute Auto 0.9 X10*3/uL (1.2-4.9); Lymphocytes Percent Auto 10.6 % (20-40); Mean Corpuscular HGB Conc 30.7 g/dl (31.0-36.0); Mean Corpuscular Hemoglobin 24.1 pg (27.0-33.0); Mean Corpuscular Volume 78.7 fL (80.0-98.0); Mean Platelet Volume 9.9 fL (9.4-12.4); Monocytes Absolute Auto 0.5 X10*3/uL (0.1-1.2); Monocytes Percent Auto 5.5 % (2-11); Neutrophils Percent Auto 73.2 % (45-73); Platelet Count 253 X10*3/uL (160-400); Red Blood Count 5.22 X10*6/uL (4.60-5.80); Red Cell Distribution Width 16.2 % (11.0-16.0); White Blood Count 8.1 X10*3/uL (4.8-10.8)
[2024-05-30 10:37] LABS: Venous Blood Gas Refer to POC result
[2024-05-30 10:38] LABS: VBG Base Excess 6.8 mmol/L; VBG HCO3 33 mmol/L (22-26); VBG pCO2 57 mmHg; VBG pH 7.37 (7.32-7.43); VBG pO2 45 mmHg
[2024-05-30 10:39] VITALS: PULSE 63; RESP 13; O2SAT 95
[2024-05-30 10:40] LABS: INTERNATIONAL NORM RATIO 0.9 (0.9-1.1); Prothrombin Time 10.2 SEC (10.9-12.4)
[2024-05-30] MEDS: Albuterol/Iprat 2.5/0.5MG 3 ML AMPUL.NEB INHALE (10:43)
[2024-05-30 10:47] LABS: Anion Gap 13 (12-20); Blood Urea Nitrogen 12 mg/dL (9-16); Calcium 10.1 mg/dL (8.4-10.2); Carbon Dioxide 30 mmol/L (22-29); Chloride 104 mmol/L (96-108); Creatinine Clr Calc Pharmacy 89.6; Estimated Glomerular Filt Rate > 60; Glucose Random 113 mg/dL (60-115); Potassium 4.1 mmol/L (3.3-5.1); Sodium 143 mmol/L (135-145)
[2024-05-30 10:53] LABS: B Type Natriuretic Peptide 82 pg/mL (<100)
[2024-05-30 10:56] LABS: Troponin-I High Sensitivity 3.4 ng/L (<3.5-35.0)
[2024-05-30 11:19] VITALS: BP 159/87; PULSE 59; RESP 20; TEMP 36.9; O2SAT 94
[2024-05-30 11:49] VITALS: BP 159/87; PULSE 59; RESP 20; TEMP 36.9; O2SAT 94
== END 2024-05-30 11:54 | disposition left against medical advice (07) ==
PROVIDERS: Physician Assistant Medical; Emergency Provider Emergency Medicine Emergency Medical Services; PCP Internal Medicine
DX: R07.89 Other chest pain (principal); R06.02 Shortness of breath; E11.9 Type 2 diabetes mellitus without complications; Z79.899 Other long term (current) drug therapy; Z79.84 Long term (current) use of oral hypoglycemic drugs
CPT/HCPCS: 36415; 71046; 80048; 82803; 83880; 84484; 85025; 85610; 93005; 94640; 99284; 99285